=== PATIENT | female | born 1955 | race Caucasian/White ===

== ENCOUNTER 2019-08-03 17:14 | Inpatient (IN) ==
--- NOTE | 2019-08-03 17:31 | Emergency Department Note ---
Impression & Plan Involuntary commitment, Noncompliance with medication regimen, Schizophrenia ED Provider Note Provider: Kaden Dowd MD DATE OF SERVICE: 08/03/2019 CHIEF COMPLAINT: Mental health evaluation HISTORY OF PRESENT ILLNESS: Patient is a 63-year-old female history of schizophrenia presenting today for mental health evaluation. Patient was recently hospitalized here over the weekend on a 302 discharged on Wednesday as she was stable during this time and restarted on her medications. Patient currently homeless and states he has been staying at a hotel/motel in the area. With the aid of the translator service here, she states that she has been doing okay. Patient states she does not have any thoughts of harm herself or anybody else. Patient's grandson is present and states that he saw her about 45 minutes ago downtown and talked with her and she stated she wanted to get a gun and shoot herself in the head. Patient states that she is not been taking her home medications. She denies hallucinations to me. For the solution sales senior executive service and my interview she does occasionally stare off and have difficulty following the conversation. She denies physical pain to me. Patient states she does not remember being here this weekend. Patient was recently released from custodial. REVIEW OF SYSTEMS: A total of 10 review of systems was obtained and negative except as stated above in the HPI. PAST MEDICAL HISTORY: As noted above MEDICATIONS: Reviewed prior list but patient states she is not been taking these. SOCIAL HISTORY: Currently homeless. Primarily speaks Mongolian with a few broken Greenlandic phrases. Patient is a smoker. PHYSICAL EXAM: GENERAL: alert and oriented in no acute distress on stretcher Head: normocephalic and atraumatic NECK: Trachea midline. No obvious deformity appreciated. EYES: No injection, discharge or icterus. ENT: Mucous membranes pink and moist. LUNGS: Airway patent. No retractions. Breath sounds clear SKIN: Acyanotic, warm, dry EXTREMITIES: Without swelling, tenderness or deformity NEUROLOGICAL: No focal deficits. Ambulatory. Psych: Patient states that she does not have any suicidal homicidal ideations. She denies hallucinations. Patient has a flattened affect and occasionally has some difficulty following conversation. Patient's hypertension was referred to her PCP HOSPITAL COURSE: 1730 Patient was first seen and H&P performed. Utilize the Mongolian translation service. Patient's grandson was present as well psychiatric case management. Patient's laboratory studies reviewed. Differential includes Mood disorder, infection, hypoglycemia, electrolyte abnormalities, cardiac sources, intracerebral event, toxicologic, trauma, neurologic, as well as other pathologies. IMPRESSION/MEDICAL DECISION MAKING: Patient presents here today for mental health evaluation. Patient denies significant symptoms of me but states medication noncompliance. Is currently homeless. Does not remember extended stay for several days here over the weekend. Patient's grandson who was present presents 302 statement stating that the patient told him that she had thoughts of wanting to get a gun and shoot herself in the head. Patient does have a significant psychiatric history including prior suicide attempts. Patient states that she has not follow-up in the outpatient setting with an outpatient provider since discharge several days ago from this ER. Medical clearance was completed. Seen in conjunction with psychiatric housing case manager. Feel a 302 is warranted at this time given patient's history and the petitioning statement given. Medically cleared (w/ UA pending) and accepted by [facility] for further inpatient care of her schizophrenia. DIAGNOSIS: Involuntary mental health evaluation, suicidal thoughts DISPOSITION: Accepted to [facility] Past Med/Surg History Social History Preferred Language: Mongolian Communication Ability: Effective Communication Tools: IPad Visual Impairment: No Limitations Hearing Ability: Normal Check Processor Required: Yes Beliefs That Will Affect Care: None Feels Safe at Home: Declines to Answer Smoking Status: Current every day smoker Tobacco Type: cigarettes ; Allergies Allergies Allergy/AdvReac Type Severity Reaction Status Date / Time No Known Allergies Allergy Verified 07/28/19 16:38 Home Meds Home Medications Medication Instructions Recorded Confirmed Cogentin 2 mg PO BID 07/28/19 08/03/19 alum-mag hydroxide-simeth [Mag-Al 30 ml PO TID PRN 07/28/19 08/03/19 Plus Extra Strength] cholecalciferol (vitamin D3) 50 mcg PO DAILY 07/28/19 08/03/19 [Vitamin D3] dicyclomine 20 mg PO TID 07/28/19 08/03/19 diphenhydramine HCl [Benadryl] 50 mg PO BID 07/28/19 08/03/19 docusate sodium [Colace] 100 mg PO BID 07/28/19 08/03/19 latanoprost [Xalatan] 1 drp OPHTHALMIC (EYE) PM 07/28/19 08/03/19 levothyroxine [Synthroid] 75 mcg PO DAILY 07/28/19 08/03/19 lithium carbonate 300 mg PO BID 07/28/19 08/03/19 loratadine 10 mg PO DAILY 07/28/19 08/03/19 magnesium hydroxide [Milk of 30 ml PO DAILY PRN 07/28/19 08/03/19 Magnesia] pantoprazole [Protonix] 40 mg PO BID 07/28/19 08/03/19 risperidone 3 mg PO DAILY 07/28/19 08/03/19 risperidone 4 mg PO HS 07/28/19 08/03/19 simethicone 80 mg PO TID PRN 07/28/19 08/03/19 simvastatin [Zocor] 10 mg PO HS 07/28/19 08/03/19 trazodone 50 mg PO HS 07/28/19 08/03/19 Results & Data (ED) Vital Signs Vital Signs - 24 hr 08/03/19 17:20 08/03/19 20:12 Temperature 37.1 C Temperature Source Oral Pulse Rate 76 Pulse Rate [Left Finger] 72 Pulse Rhythm Regular Pulse Strength Normal Respiratory Rate 20 20 Respiratory Effort / Characteristics Non-Labored Spontaneous Respiratory Depth Normal Respiratory Pattern Regular Blood Pressure 166/95 H Blood Pressure [Left Arm] 116/63 Blood Pressure Mean 118 Blood Pressure Mean [Left Arm] 80 Blood Pressure Position Sitting Pulse Oximetry 99 95 Oxygen Delivery Method Room Air Room Air Sepsis Recent Fever Within 48 Hours No Sepsis New/Unexplained Change in Mental Status No Sepsis Action Taken by Nursing No Action Required Laboratory Data Result diagrams: 08/03/19 17:58 08/03/19 17:58 Lab Results 08/03/19 08/03/19 08/03/19 Range/Units 17:58 17:58 17:58 WBC 8.43 (4.8-10.8) K/uL RBC 4.58 (4.2-5.4) M/uL Hgb 13.3 (12.0-16.0) g/dL Hct 42.0 (37-47) % MCV 91.7 (80-100) fL MCH 29.0 (25-34) pg MCHC 31.7 L (32-36) g/dL RDW Std Deviation 43.6 (36.4-46.3) fL RDW Coeff of Ronald 13.0 (11.5-14.5) % Plt Count 393 (130-400) K/uL MPV 9.8 (7.4-10.4) fL Immature Gran % (Auto) 0.2 % Neut % (Auto) 67.0 % Lymph % (Auto) 24.4 % Lucas % (Auto) 7.6 % Eos % (Auto) 0.4 % Baso % (Auto) 0.4 % Immature Gran # (Auto) 0.02 (0.00-0.02) K/uL Neut # (Auto) 5.65 (1.4-6.5) K/uL Lymph # (Auto) 2.06 (1.2-3.4) K/uL Lucas # (Auto) 0.64 H (0.11-0.59) K/uL Eos # (Auto) 0.03 (0-0.5) K/uL Baso # (Auto) 0.03 (0-0.2) K/uL Sodium 137 (136-145) mmol/L Potassium 3.4 L (3.5-5.1) mmol/L Chloride 103 (98-107) mmol/L Carbon Dioxide 26 (21-32) mmol/L Anion Gap 8.0 (3-11) BUN 11 (7-18) mg/dl Creatinine 0.67 (0.6-1.2) mg/dl Est Cr Clr Drug Dosing 94.6 ml/min Est GFR ( Amer) 110.0 Est GFR (Non-Af Amer) 94.9 BUN/Creatinine Ratio 15.9 (10-20) Glucose 105 H (70-99) mg/dl Calcium 9.0 (8.5-10.1) mg/dl Total Bilirubin 0.3 (0.2-1) mg/dl AST 21 (15-37) U/L ALT 29 (12-78) U/L Alkaline Phosphatase 97 (45-117) U/L Total Protein 8.4 H (6.4-8.2) gm/dl Albumin 3.9 (3.4-5.0) gm/dl Globulin 4.5 H (2.5-4.0) gm/dl Albumin/Globulin Ratio 0.9 (0.9-2) TSH 1.410 (0.300-4.500) uIu/ml Urine Color Urine Appearance (Clear) Urine pH (4.5-7.5) Ur Specific Glasco (1.000-1.030) Urine Protein (Negative) Urine Glucose (UA) (Negative) Urine Ketones (Negative) Urine Blood (Negative) Urine Nitrite (Negative) Urine Bilirubin (Negative) Urine Urobilinogen (Negative) Ur Leukocyte Esterase (Negative) Urine WBC (Auto) (0-5) /hpf Urine RBC (Auto) (0-4) /hpf U Hyaline Cast (Auto) (0-5) /lpf U Epithel Cells (Auto) (0-5) /lpf Urine Bacteria (Auto) (Negative) Nasal Screen MRSA (PCR) (Negative) Salicylates 1.8 L (2.8-20) mg/dl Urine Opiates Screen (Neg) Ur Methadone, Qual (Neg) Acetaminophen < 2 L (10-30) ug/ml Urine Barbiturates (Neg) Ur Phencyclidine (PCP) (Neg) U Amphetamin/Meth Scrn (Neg) MDMA (Ecstasy) Screen (Neg) U Benzodiazepines Scrn (Neg) Dickens < 0.2 L (0.6-1.2) mmol/L Ur Cocaine Metabolite (Neg) U Marijuana (THC) Screen (Neg) Ethyl Alcohol mg/dL (0-3) mg/dl 08/03/19 08/03/19 08/03/19 Range/Units 17:58 19:00 20:40 WBC (4.8-10.8) K/uL RBC (4.2-5.4) M/uL Hgb (12.0-16.0) g/dL Hct (37-47) % MCV (80-100) fL MCH (25-34) pg MCHC (32-36) g/dL RDW Std Deviation (36.4-46.3) fL RDW Coeff of Ronald (11.5-14.5) % Plt Count (130-400) K/uL MPV (7.4-10.4) fL Immature Gran % (Auto) % Neut % (Auto) % Lymph % (Auto) % Lucas % (Auto) % Eos % (Auto) % Baso % (Auto) % Immature Gran # (Auto) (0.00-0.02) K/uL Neut # (Auto) (1.4-6.5) K/uL Lymph # (Auto) (1.2-3.4) K/uL Lucas # (Auto) (0.11-0.59) K/uL Eos # (Auto) (0-0.5) K/uL Baso # (Auto) (0-0.2) K/uL Sodium (136-145) mmol/L Potassium (3.5-5.1) mmol/L Chloride (98-107) mmol/L Carbon Dioxide (21-32) mmol/L Anion Gap (3-11) BUN (7-18) mg/dl Creatinine (0.6-1.2) mg/dl Est Cr Clr Drug Dosing ml/min Est GFR ( Amer) Est GFR (Non-Af Amer) BUN/Creatinine Ratio (10-20) Glucose (70-99) mg/dl Calcium (8.5-10.1) mg/dl Total Bilirubin (0.2-1) mg/dl AST (15-37) U/L ALT (12-78) U/L Alkaline Phosphatase (45-117) U/L Total Protein (6.4-8.2) gm/dl Albumin (3.4-5.0) gm/dl Globulin (2.5-4.0) gm/dl Albumin/Globulin Ratio (0.9-2) TSH (0.300-4.500) uIu/ml Urine Color Urine Appearance (Clear) Urine pH (4.5-7.5) Ur Specific Glasco (1.000-1.030) Urine Protein (Negative) Urine Glucose (UA) (Negative) Urine Ketones (Negative) Urine Blood (Negative) Urine Nitrite (Negative) Urine Bilirubin (Negative) Urine Urobilinogen (Negative) Ur Leukocyte Esterase (Negative) Urine WBC (Auto) (0-5) /hpf Urine RBC (Auto) (0-4) /hpf U Hyaline Cast (Auto) (0-5) /lpf U Epithel Cells (Auto) (0-5) /lpf Urine Bacteria (Auto) (Negative) Nasal Screen MRSA (PCR) Negative (Negative) Salicylates (2.8-20) mg/dl Urine Opiates Screen Neg (Neg) Ur Methadone, Qual Neg (Neg) Acetaminophen (10-30) ug/ml Urine Barbiturates Neg (Neg) Ur Phencyclidine (PCP) Neg (Neg) U Amphetamin/Meth Scrn Neg (Neg) MDMA (Ecstasy) Screen Neg (Neg) U Benzodiazepines Scrn Neg (Neg) Dickens (0.6-1.2) mmol/L Ur Cocaine Metabolite Neg (Neg) U Marijuana (THC) Screen Neg (Neg) Ethyl Alcohol mg/dL < 3.0 (0-3) mg/dl 08/03/19 Range/Units 20:40 WBC (4.8-10.8) K/uL RBC (4.2-5.4) M/uL Hgb (12.0-16.0) g/dL Hct (37-47) % MCV (80-100) fL MCH (25-34) pg MCHC (32-36) g/dL RDW Std Deviation (36.4-46.3) fL RDW Coeff of Ronald (11.5-14.5) % Plt Count (130-400) K/uL MPV (7.4-10.4) fL Immature Gran % (Auto) % Neut % (Auto) % Lymph % (Auto) % Lucas % (Auto) % Eos % (Auto) % Baso % (Auto) % Immature Gran # (Auto) (0.00-0.02) K/uL Neut # (Auto) (1.4-6.5) K/uL Lymph # (Auto) (1.2-3.4) K/uL Lucas # (Auto) (0.11-0.59) K/uL Eos # (Auto) (0-0.5) K/uL Baso # (Auto) (0-0.2) K/uL Sodium (136-145) mmol/L Potassium (3.5-5.1) mmol/L Chloride (98-107) mmol/L Carbon Dioxide (21-32) mmol/L Anion Gap (3-11) BUN (7-18) mg/dl Creatinine (0.6-1.2) mg/dl Est Cr Clr Drug Dosing ml/min Est GFR ( Amer) Est GFR (Non-Af Amer) BUN/Creatinine Ratio (10-20) Glucose (70-99) mg/dl Calcium (8.5-10.1) mg/dl Total Bilirubin (0.2-1) mg/dl AST (15-37) U/L ALT (12-78) U/L Alkaline Phosphatase (45-117) U/L Total Protein (6.4-8.2) gm/dl Albumin (3.4-5.0) gm/dl Globulin (2.5-4.0) gm/dl Albumin/Globulin Ratio (0.9-2) TSH (0.300-4.500) uIu/ml Urine Color Yellow Urine Appearance Clear (Clear) Urine pH 5.0 (4.5-7.5) Ur Specific Glasco 1.020 (1.000-1.030) Urine Protein Negative (Negative) Urine Glucose (UA) Negative (Negative) Urine Ketones Negative (Negative) Urine Blood 2+ H (Negative) Urine Nitrite Negative (Negative) Urine Bilirubin Negative (Negative) Urine Urobilinogen Negative (Negative) Ur Leukocyte Esterase 2+ H (Negative) Urine WBC (Auto) >30 H (0-5) /hpf Urine RBC (Auto) 0-4 (0-4) /hpf U Hyaline Cast (Auto) 1-5 (0-5) /lpf U Epithel Cells (Auto) >30 H (0-5) /lpf Urine Bacteria (Auto) Negative (Negative) Nasal Screen MRSA (PCR) (Negative) Salicylates (2.8-20) mg/dl Urine Opiates Screen (Neg) Ur Methadone, Qual (Neg) Acetaminophen (10-30) ug/ml Urine Barbiturates (Neg) Ur Phencyclidine (PCP) (Neg) U Amphetamin/Meth Scrn (Neg) MDMA (Ecstasy) Screen (Neg) U Benzodiazepines Scrn (Neg) Dickens (0.6-1.2) mmol/L Ur Cocaine Metabolite (Neg) U Marijuana (THC) Screen (Neg) Ethyl Alcohol mg/dL (0-3) mg/dl Administered Medications Dickens Carbonate (Dickens Carbonate) 300 mg PO BID [facility] Stop: 09/02/19 21:44 Last Admin: 08/03/19 22:18 Dose: 300 mg Documented by: [id number] Risperidone (Risperdal) 1 mg PO BID CLARISA Stop: 09/02/19 21:44 Last Admin: 08/03/19 22:18 Dose: 1 mg Documented by: [id number] Discharge Plan Visit Data Chief Complaint: Mental Health Evaluation Stated Complaint: [facility] ED Provider: Kaden Dowd Discharge Problem: Involuntary commitment, Noncompliance with medication regimen, Schizophrenia Discharge Instructions Interventions: ED Discharge Assessment Last Done: 08/03/19 21:01 Discharge Problem: Schizophrenia Qualifiers: Schizophrenia type: unspecified Qualified Code(s): F20.9 - Schizophrenia, unspecified
[2019-08-03 18:10] LABS: Basophils # (auto) 0.03 K/uL (0-0.2); Basophils % (auto) 0.4 %; Eosinophils # (auto) 0.03 K/uL (0-0.5); Eosinophils % (auto) 0.4 %; Hemoglobin 13.3 g/dL (12.0-16.0); Immature Granulocytes # (auto) 0.02 K/uL (0.00-0.02); Immature Granulocytes % (auto) 0.2 %; Lymphocytes # (auto) 2.06 K/uL (1.2-3.4); Lymphocytes % (auto) 24.4 %; Mean Corpuscular Hgb Conc 31.7 g/dL (32-36); Mean Corpuscular Volume 91.7 fL (80-100); Mean Platelet Volume 9.8 fL (7.4-10.4); Monocytes # (auto) 0.64 K/uL (0.11-0.59); Monocytes % (auto) 7.6 %; Neutrophils # (auto) 5.65 K/uL (1.4-6.5); Platelet Count 393 K/uL (130-400); RDW Standard Deviation 43.6 fL (36.4-46.3); Red Blood Count 4.58 M/uL (4.2-5.4); White Blood Count 8.43 K/uL (4.8-10.8)
[2019-08-03 18:38] LABS: Albumin Level 3.9 gm/dl (3.4-5.0); BUN Creatinine Ratio 15.9 (10-20); Creatinine Clr Calc Pharmacy 94.6 ml/min; Est GFR (Non-African American) 94.9; Potassium 3.4 mmol/L (3.5-5.1)
[2019-08-03 18:49] LABS: Albumin Globulin Ratio 0.9 (0.9-2); Bilirubin,Total 0.3 mg/dl (0.2-1); Globulin 4.5 gm/dl (2.5-4.0); Thyroid Stimulating Hormone 1.41 uIu/ml (0.300-4.500); Total Protein 8.4 gm/dl (6.4-8.2)
[2019-08-03 18:53] LABS: Acetaminophen < 2 ug/ml (10-30); Lithium < 0.2 mmol/L (0.6-1.2); Salicylate 1.8 mg/dl (2.8-20)
[2019-08-03] MEDS ORDERED: ACETAMINOPHEN 325 MG TAB PO PRN (20:47)
[2019-08-03] MEDS ORDERED: BISMUTH SUBSALICYLATE PER ML OMNICELL CHARGE PO PRN ×2 (20:47→20:51)
[2019-08-03] MEDS ORDERED: SODIUM CHLORIDE 0.65% NA SOLN 45 ML (OCEAN) PRN ×2 (20:47→20:51)
[2019-08-03] MEDS ORDERED: ALUMINUM/MAGNESIUM SUSP 30 ML UDC PO PRN ×2 (20:47→20:51)
[2019-08-03] MEDS ORDERED: MAGNESIUM HYDROXIDE SUSP 30 ML UDC PO PRN ×2 (20:47→20:51)
[2019-08-03 20:51] LABS: Appearance Urine Clear (Clear); Bacteria Urine Automated Negative (Negative); Bilirubin Urine Negative (Negative); Blood Urine 2+ (Negative); Color Urine Yellow; Epithelial Cell Urine Auto >30 /lpf (0-5); Glucose Urine UA Negative (Negative); Ketones Urine Negative (Negative); Leukocyte Esterase Urine 2+ (Negative); Nitrite Urine Negative (Negative); Protein Urine Negative (Negative); RBC Urine Automated 0-4 /hpf (0-4); Urobilinogen Urine Negative (Negative); WBC Urine Automated >30 /hpf (0-5)
[2019-08-03] MEDS ORDERED: RISPERIDONE ODT 1MG PO PRN (21:17)
[2019-08-03 21:34] LABS: Amphetamines+Metham, Urine Neg (Neg); Barbiturates, Urine Neg (Neg); Benzodiazepine, Urine Neg (Neg); Cocaine, Urine Neg (Neg); MDMA (Ecstacy), Urine Neg (Neg); Methadone, Urine Neg (Neg); Opiate, Urine Neg (Neg); Phencyclidine, Urine Neg (Neg)
[2019-08-03] MEDS: risperiDONE 1 MG TABLET PO SCH (22:18)
[2019-08-03] MEDS: LITHIUM CARBONATE 300 MG TAB PO SCH (22:18)
[2019-08-04] MEDS ORDERED: SIMETHICONE 80 MG CHEW PO PRN (10:45)
[2019-08-04] MEDS ORDERED: risperiDONE 3 MG TABLET PO SCH (11:00)
--- NOTE | 2019-08-04 11:30 | History & Physical ---
Date of Service August 04, 2019 Impression / Recommendations Impression This 63-year-old female with the presumed diagnosis of schizoaffective disorder bipolar type was been admitted through the emergency department on a 302 commitment following a petition by her grandson. The petition alleges that the patient told him that she was going to shoot herself with a gun. The petition also mentions that she is homeless. The patient, herself, reports that she is not suicidal, never threatened to shoot herself with a gun, and has never made a suicide attempt in the pastalthough the records suggest that she reportedly had made a suicide attempt by self cutting in 2017. The past record indicates that the patient had symptoms suggestive of schizophrenia, and then subsequently developed mood swings suggestive of christnie. There also reportedly is a history of poorly controlled behavior in the community, and her family reportedly has filed and have been granted a protection from abuse (PFA) order. Further, it has been reported that the patient was imprisoned for approximately 1 year on charges of making terroristic threats against her family, and she has only recently been released. Evaluation of this patient was complicated by the fact that she speaks little Guamanian, but does seem to understand basic pleasantries and Guamanian. The interview was conducted first by the interviewer's very limited Mozambican, and then was completed in detail with the assistance of an Internet primary clinician through an iPad. The patient, herself, indicates that she has not taken any of her medications, including any of her psychiatric medications for at least 5 days. She was seen in the emergency room during the previous weekend and released. It seems that at some point subsequent to that she ended up leaving the [facility] room that was being provided for her by a local benevolent organization and, according the patient, she has been living and sleeping "on the streets" for at least several days. During the period of time in question, [employer] has been under a freeze warning, but the patient insists that she did not get cold. Reports from community providers are that she has been neglecting self-care, not attending to her personal needs, not taking her medicines, and not eating. Also, during her interview with us she told us that people are trying to kill her, although she does not elaborate. 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 It was also evident that she was highly suspicious of the primary clinician and, according to the primary clinician, she frequently insulted him or falsely accused him of things such as shouting at her, or being arrogant, or badgering her. Although their conversations were in Mozambican, it was clear that the primary clinician was in no way shouting at her, and did not appear to be anything other than professional and polite. Also, although the patient reports that she does not hear voices that other people do not hear, and although this has reportedly been the case in the past, she does appear to be responding as if to internal stimuli. For example, she will suddenly turn her head in a certain direction smile and not as if responding to a non-heard voice. (1) Noncompliance with medication regimen: 08/04/19 - The patient indicates that she has stopped taking her medicine because the names of the directions for the medications are in Guamanian and she cannot read them. She also indicates that she no longer has access to her medications and has not taken any for approximately 5 days. The patient also claims to not recall the names of any of her medications and reports that she does not have the conditions for which her known medications are clearly intended. She also seems not to be oriented to year, and memory deficits on testing suggests that there may be some cognitive impairment as well. -The patient's underlying psychiatric condition will be actively treated. It is hoped that with treatment we will be able to better assess whether the patient can independently manage medications, or if she will need active assistance in this regard when she returns to the community. -She has a history of favorably responding to risperidone. We will start the patient on risperidone M tabs at her reported outpatient recommended dose, and as tolerated we will talk to the patient about converting to a Depo form of risperidone, given her history of medication nonadherence. Present on Admission?: Yes (2) Psychosis: 08/04/19 -The patient has been admitted to the locked, secured behavioral health unit and has been placed in special observation room. She is also being monitored with close observations and every 15-minute direct observation. When more stable she will be actively encouraged to participate in individual, group, and activity therapies. We will also attempt to involve the family if the patient permits us to and if they agree. -Although she was given a diagnosis of schizophrenia in the emergency room, the record, and the patient's presentation, is more consistent with a diagnosis of schizoaffective disorder, bipolar type. She has a reported history of responding favorably to risperidone, and, in addition, she had been prescribed lithium carbonate prior to admission. The issue may be nonadherence with these medications, and the first plan is to restart them at risperidone 3 mg in the morning and 4 mg at bedtime (oral dissolving tablets to help assure adherence) and lithium carbonate 300 mg twice a day with a plan to check her lithium level next week. Psychosis type: unspecified psychosis type Qualified Code(s): F29 - Unspecified psychosis not due to a substance or known physiological condition (3) Homeless: 08/04/19 -Until recently, the patient reportedly had been living in a motel room and a "[employer]" motel in [place]. This accommodation was provided through a local benevolent organization known as [facility]." However, this organization has notified us today that they were only able to provide accommodations during cold weather seasons and that, accordingly, they will not be able to provide accommodations over the balance of the spring, summer, and early derian. -In the past, the patient is live with family members. However, this is clearly not an option at the present time. The context is that the patient reportedly was in [facility] approximately a year because of her making terroristic threats against the family. While it does seem clear that the family wants to help protect her, they are unable to safely provide group home. Given the patient's history of neglect of self-care, medication nonadherence, and possible cognitive deficits we are going to investigate structured residential programs as part of our discharge planning. Present on Admission?: Yes Inventory Assets Strengths: Agrees to take medications. Basically cooperative with treatment. Pleasant on approach. Concerned family members. Needs: Resolution of psychotic features. Medication adherence. Stable living environment. Risk Factors Assessment Psychotic illness. Homeless. Extremely poor judgment. Male: No : No Do You Have Access To A Gun?: No Health Problems: Yes Mental Health Diagnoses: Yes Substance Use Disorders: Yes (Patient makes reference to smoking marijuana, but does not clear if this is something that is done regularly or if it interferes anyway with her functioning.) Previous Attempt: No (The patient insists that she does not have a history of intentional self injury. 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 She has a history of schizoaffective disorder, bipolar type and was admitted on 08/03/19 20:47 on a 302 involuntary commitment after her grandson reported that she had told him that she had very recently threatened to get a gun and shoot herself. Chief Complaint "I just need to have my medications explained to me." History of Present Illness The patient is a 63-year-old woman with a long history of psychotic illness as well as a history of multiple psychiatric hospitalizations, including at least 1 previous admission to the behavioral health unit at [facility]. She was admitted during the evening of 08/03/2019 after being evaluated in the emergency room. The patient also says that she has been living on the streets for at least the past 2 or 3 nights. This is particularly of concern because for approximately the same period of time [place] has been under a freeze warning at night. When asked if she had been cold, she smiled and said "oh no." The patient's report is that she was brought to the emergency room by the police, at her request, because she is confused about her medications and does not have access to them. However, the reality is that she was brought to the emergency room by the police on a 302 warrant that was petitioned by her grandson. According to the petition, the grandson reports that the patient had very recently told him that she is planning to acquire a gun and shoot herself. A woman who has been identified is the patient's therapeutic case manager, Lizzy at the base services unit, reports that the patient had been staying at the "[employer] [address]" motel, sponsored by the local charitable organization, "[employer]." However, the patient evidently left her motel room several days ago. According to Lizzy, prior to that, the patient had not been eating, had not been taking care of herself, and had not been taking her medications. The patient, herself, acknowledges that she has not taken any of her medications (psychiatric or otherwise) for at least 5 days, both because she does not have access to them and, also, because she is confused about them. The patient tells us that she was recently [facility], and had been sent there approximately a year ago because of "a bunch of lies the people told." She declines to identify, or is unable to remember the nature of the "lies," but her assertion is that the "lies" or "investigated," and her innocence was proven so she was released. According to an online judicial case review, the patient was incarcerated for making terroristic threats, apparently against her her family. It is noted that the family has an active PFA order against her. Additional information is currently being sought from the [facility] health records, and from [facility] where she reportedly had previously been a patient. According the patient, she has no psychiatric illness and does not recall the name of any of her medications. The [id number] evaluation of the patient was conducted with the services of an online primary clinician. At times, the patient seemed highly suspicious of the primary clinician and, without , periodically accused him of "shouting" at her (he had not) and being "prideful" or "arrogant." (Of course, the fold skiver was simply repeating the questions that I was asking.) Past Psychiatric History Previous Psych History: The patient acknowledges a history of multiple psychiatr ic hospitalizations but is either unable or unwilling to identify any of the previous admissions. There is a history of a previous psychiatric hospitalization on the behavioral health unit at [facility] in 2018. The therapeutic case manager also indicates that the patient had previously been a patient at [facility]. Current Psychiatric Diagnosis: Schizoaffective Disorder, Bipolar Type Previous Psych Admissions: Patient reports a history of a number of psychiatric hospitalizations. We have a record of her hospitalization on the behavioral health unit in 2018. At that time, she responded favorably to risperidone. There is also an indication that she had been hospitalized at [facility] in the past. Do You Have Access To A Gun?: No History of Previous Suicide Attempt: Yes (The patient reports that she does not have any history of suicide attempts. However, the 2018 [facility] behavioral health unit record notes that there was a report that she had intentionally cut her wrists in 2017) Describe Attempts in the Past: Possible past attempt by cutting her wrist Past Medication Trials: Record indicates the patient has a history of favorable response to risperidone. She is also currently prescribed lithium carbonate. Past Head Trauma/Neuro History History of Concussion/Seizure: No (The patient is not considered a reliable historian, but claims to have no history of head injury or seizures.) Allergies Allergy/AdvReac Type Severity Reaction Status Date / Time No Known Allergies Allergy Verified 07/28/19 16:38 Home Medications Home Medications Medication Instructions Recorded Confirmed Type alum-mag hydroxide-simeth [Mag-Al 30 ml PO TID PRN 07/28/19 08/03/19 History Plus Extra Strength] cholecalciferol (vitamin D3) 50 mcg PO DAILY 07/28/19 08/03/19 History [Vitamin D3] dicyclomine 20 mg PO TID 07/28/19 08/03/19 History diphenhydramine HCl [Benadryl] 50 mg PO BID 07/28/19 08/03/19 History docusate sodium [Colace] 100 mg PO BID 07/28/19 08/03/19 History latanoprost [Xalatan] 1 drp OPHTHALMIC (EYE) PM 07/28/19 08/03/19 History levothyroxine [Synthroid] 75 mcg PO DAILY 07/28/19 08/03/19 History lithium carbonate 300 mg PO BID 07/28/19 08/03/19 History loratadine 10 mg PO DAILY 07/28/19 08/03/19 History magnesium hydroxide [Milk of 30 ml PO DAILY PRN 07/28/19 08/03/19 History Magnesia] pantoprazole [Protonix] 40 mg PO BID 07/28/19 08/03/19 History risperidone 3 mg PO DAILY 07/28/19 08/03/19 History risperidone 4 mg PO HS 07/28/19 08/03/19 History simethicone 80 mg PO TID PRN 07/28/19 08/03/19 History simvastatin [Zocor] 10 mg PO HS 07/28/19 08/03/19 History trazodone 50 mg PO HS 07/28/19 08/03/19 History benztropine 2 mg PO BID 08/04/19 08/04/19 History Family History Family History of: Doesn't Know Alcohol History Hx of Alcohol Use Over the Past 12 Months: No Smoking Use Have You Smoked or Used Tobacco Products in the Last 30 Days: Yes tobacco type: cigarettes Smoking Status: Current some day smoker Substance History Hx of Prescription Med Misuse Over the Past 12 Months: No Hx of Over the Counter Med Misuse Over the Past 12 Months: No Hx of Inhalent Misuse Over the Past 12 Months: No Hx of Organic Substance Use Over the Past 12 Months: No Hx of Illegal Substances/Street Drug Use Over Past 12 Months: Yes (The patient reports that she sometimes smokes marijuana) Problems as a Result of Past Substance Use: None Identified Personal History Living Arrangements: Homeless (Prior to admission the patient had been living in a motel room provided by a local [employer] organization. However that organization has notified us that she will no longer be eligible for their services.) Born In: [facility] Childhood: The patient provides no information in this regard. Highest Grade Completed Comment: The patient does not provide reliable information regarding education. 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 Employment Status: Unemployed Marital Status: Single Number Of Children: The patient at first tells us that she has "7 children," and then later says "7 or 8 children." She became angry when asked if she has any grandchildren. Beliefs That Will Affect Care: None Current Legal Problems: Yes (Was recently released from [facility] where she had been confined secondary to charges of making terroristic threats.) Legal Problems Comment: It is not known if there are any ongoing legal entanglements. The patient also reportedly is an undocumented alien in the [place]. We are told that immigration and custom enforcement ("ICE") has been notified, but no immediate action is planned. Hx Legal Problems: Yes Psychological Trauma History Comment: The patient was not sufficiently cooperative with the interview to gather information about any past history of trauma. Patient History Medical History Anxiety (Chronic) Depression (Chronic) Hypercholesteremia (Chronic) Schizophrenia (Chronic) Family History Other No pertinent family history Social History Preferred Language: Mozambican Communication Ability: Effective Communication Tools: IPad Visual Impairment: No Limitations Hearing Ability: Normal [employer] Hatcher[employer] Manager Required: Yes Beliefs That Will Affect Care: None Feels Safe at Home: Declines to Answer Smoking Status: Current some day smoker Tobacco Type: cigarettes ; Review of Systems Review of Systems: All systems reviewed & are unremarkable except as noted in HPI & below The somatic history, physical examination, and review of systems is completed by Kaden Dowd MD in the emergency department has been reviewed and is excepted for purposes of medical clearance to the behavioral health unit. A confirmatory review of systems completed on the psychiatric unit during the admission assessment resolved and the patient denying all medical problems, including psychiatric problems. Based upon the patient's medicine profile, there would appear to be a history of gastroesophageal reflux disease, hypothyroidism, and dyslipidemia. Physical Exam Psychiatric: Orientation: alert, oriented to person and oriented to place (The patient notes that she is in a hospital, but says that she does not know the name of the hospital.) When asked to name the current year, the patient began "1999" hesitated, and then added "I do not look at the calendar anymore." However, she was correctly able to name the month (July) Apperance: + disheveled and appeared stated age Eye Contact: + poor eye contact The patient was unable/unwilling to cooperate with an abnormal involuntary movement scale. She shakes both of her lower extremities simultaneously at approximately a 3 beat per second rhythm. The patient is not proficient in Guamanian. In the presence of an Internet-based primary clinician service provided through an iPad, the patient offered little information spontaneously and alternated between some inappropriate smiling, what appeared to be thought blocking, and, occasionally, abrupt and insulting comments directed towards the primary clinician. Affect: + labile affect "Good." Thought Process: + thought blocking and + concrete thought process Thought Content: + delusions The patient tells us that there are people who are trying to kill her. However, she declines to elaborate. 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 However, periodically during the interview she looked about the room, smiled inappropriately, and appeared to be responding to internal stimuli. Immediate and short-term memory were tested. The patient responded "no" when asked immediately after being given the name of a medication that she is taking if she remembers the name that was just spoken. She was asked to recall 3 objects after 5 minutes (apple, knife, and car). She declined to repeat these objects immediately after they were given to her, and she genuinely seemed unable to recall any of the objects after approximately 5 minutes, even when given prompts. Estimated Intelligence: average estimated intelligence Insight: + severely impaired insight Judgement: + severely impaired judgement Vital Signs (Past 24 Hours): Last Vital Signs Temp 37 C 08/04/19 06:38 Pulse 65 08/04/19 06:38 Resp 18 08/04/19 06:38 BP 125/69 08/04/19 06:38 Pulse Ox 95 08/03/19 21:25 Results & Data ([facility]) Laboratory Results Laboratory Results - last 24 hr 08/03/19 08/03/19 08/03/19 17:58 17:58 17:58 WBC 8.43 RBC 4.58 Hgb 13.3 Hct 42.0 MCV 91.7 MCH 29.0 MCHC 31.7 L RDW Std Deviation 43.6 RDW Coeff of Ronald 13.0 Plt Count 393 MPV 9.8 Immature Gran % (Auto) 0.2 Neut % (Auto) 67.0 Lymph % (Auto) 24.4 [place] % (Auto) 7.6 Eos % (Auto) 0.4 Baso % (Auto) 0.4 Immature Gran # (Auto) 0.02 Neut # (Auto) 5.65 Lymph # (Auto) 2.06 [place] # (Auto) 0.64 H Eos # (Auto) 0.03 Baso # (Auto) 0.03 Sodium 137 Potassium 3.4 L Chloride 103 Carbon Dioxide 26 Anion Gap 8.0 BUN 11 Creatinine 0.67 Est Cr Clr Drug Dosing 94.6 Est GFR ( Amer) 110.0 Est GFR (Non-Af Amer) 94.9 BUN/Creatinine Ratio 15.9 Glucose 105 H Calcium 9.0 Total Bilirubin 0.3 AST 21 ALT 29 Alkaline Phosphatase 97 Total Protein 8.4 H Albumin 3.9 Globulin 4.5 H Albumin/Globulin Ratio 0.9 TSH 1.410 Urine Color Urine Appearance Urine pH Ur Specific [place] Urine Protein Urine Glucose (UA) Urine Ketones Urine Blood Urine Nitrite Urine Bilirubin Urine Urobilinogen Ur Leukocyte Esterase Urine WBC (Auto) Urine RBC (Auto) U Hyaline Cast (Auto) U Epithel Cells (Auto) Urine Bacteria (Auto) Nasal Screen MRSA (PCR) Salicylates 1.8 L Urine Opiates Screen Ur Methadone, Qual Acetaminophen < 2 L Urine Barbiturates Ur Phencyclidine (PCP) U Amphetamin/Meth Scrn MDMA (Ecstasy) Screen U Benzodiazepines Scrn [place] < 0.2 L Ur Cocaine Metabolite U Marijuana (THC) Screen Ethyl Alcohol mg/dL 08/03/19 08/03/19 08/03/19 17:58 19:00 20:40 WBC RBC Hgb Hct MCV MCH MCHC RDW Std Deviation RDW Coeff of Ronald Plt Count MPV Immature Gran % (Auto) Neut % (Auto) Lymph % (Auto) [place] % (Auto) Eos % (Auto) Baso % (Auto) Immature Gran # (Auto) Neut # (Auto) Lymph # (Auto) [place] # (Auto) Eos # (Auto) Baso # (Auto) Sodium Potassium Chloride Carbon Dioxide Anion Gap BUN Creatinine Est Cr Clr Drug Dosing Est GFR ( Amer) Est GFR (Non-Af Amer) BUN/Creatinine Ratio Glucose Calcium Total Bilirubin AST ALT Alkaline Phosphatase Total Protein Albumin Globulin Albumin/Globulin Ratio TSH Urine Color Urine Appearance Urine pH Ur Specific [place] Urine Protein Urine Glucose (UA) Urine Ketones Urine Blood Urine Nitrite Urine Bilirubin Urine Urobilinogen Ur Leukocyte Esterase Urine WBC (Auto) Urine RBC (Auto) U Hyaline Cast (Auto) U Epithel Cells (Auto) Urine Bacteria (Auto) Nasal Screen MRSA (PCR) Negative Salicylates Urine Opiates Screen Neg Ur Methadone, Qual Neg Acetaminophen Urine Barbiturates Neg Ur Phencyclidine (PCP) Neg U Amphetamin/Meth Scrn Neg MDMA (Ecstasy) Screen Neg U Benzodiazepines Scrn Neg [place] Ur Cocaine Metabolite Neg U Marijuana (THC) Screen Neg Ethyl Alcohol mg/dL < 3.0 08/03/19 20:40 WBC RBC Hgb Hct MCV MCH MCHC RDW Std Deviation RDW Coeff of Ronald Plt Count MPV Immature Gran % (Auto) Neut % (Auto) Lymph % (Auto) [place] % (Auto) Eos % (Auto) Baso % (Auto) Immature Gran # (Auto) Neut # (Auto) Lymph # (Auto) [place] # (Auto) Eos # (Auto) Baso # (Auto) Sodium Potassium Chloride Carbon Dioxide Anion Gap BUN Creatinine Est Cr Clr Drug Dosing Est GFR ( Amer) Est GFR (Non-Af Amer) BUN/Creatinine Ratio Glucose Calcium Total Bilirubin AST ALT Alkaline Phosphatase Total Protein Albumin Globulin Albumin/Globulin Ratio TSH Urine Color Yellow Urine Appearance Clear Urine pH 5.0 Ur Specific [place] 1.020 Urine Protein Negative Urine Glucose (UA) Negative Urine Ketones Negative Urine Blood 2+ H Urine Nitrite Negative Urine Bilirubin Negative Urine Urobilinogen Negative Ur Leukocyte Esterase 2+ H Urine WBC (Auto) >30 H Urine RBC (Auto) 0-4 U Hyaline Cast (Auto) 1-5 U Epithel Cells (Auto) >30 H Urine Bacteria (Auto) Negative Nasal Screen MRSA (PCR) Salicylates Urine Opiates Screen Ur Methadone, Qual Acetaminophen Urine Barbiturates Ur Phencyclidine (PCP) U Amphetamin/Meth Scrn MDMA (Ecstasy) Screen U Benzodiazepines Scrn [place] Ur Cocaine Metabolite U Marijuana (THC) Screen Ethyl Alcohol mg/dL Current Inpatient Medications Current Inpatient Medications: Current Inpatient Medications Acetaminophen (Tylenol) 650 mg PO Q4H PRN PRN Reason: Headache or Minor Fever Stop: 09/02/19 20:46 Al Hydrox/Mg Hydrox/Simethicone (Maalox) 30 ml PO Q4H PRN PRN Reason: GI Upset Stop: 09/02/19 20:46 Bismuth Subsalicylate (Kaopectate) 15 ml PO PRN PRN PRN Reason: Loose Stool Stop: 09/02/19 20:46 Diphenhydramine HCl (Benadryl Capsule) 50 mg PO BID [facility] Stop: 09/03/19 10:59 Hydroxyzine HCl (Vistaril) 50 mg PO HSZ PRN PRN Reason: Insomnia Stop: 09/02/19 20:46 Hydroxyzine HCl (Vistaril) 25 mg PO Q4H PRN PRN Reason: Anxiety Stop: 09/02/19 20:46 Levothyroxine Sodium (Synthroid) 75 mcg PO DAILYBB [facility] Stop: 09/04/19 07:59 [place] Carbonate ([place] Carbonate) 300 mg PO BID [facility] Stop: 09/02/19 21:44 Last Admin: 08/03/19 22:18 Dose: 300 mg Documented by: Loratadine (Claritin) 10 mg PO QAM [facility] Stop: 09/03/19 10:59 Magnesium Hydroxide (Milk Of Magnesia) 30 ml PO DAILY PRN PRN Reason: Constipation Stop: 09/02/19 20:46 Miscellaneous (Remove Nicoderm Patch) 1 ea N/A DAILY@0859 [facility] Stop: 09/03/19 08:58 Nicotine ([facility] Cq) [facility] [place]: 09/03/19 08:59 Pantoprazole Sodium (Protonix) 40 mg PO HS [facility] Stop: 09/03/19 21:59 Risperidone (Risperdal M) 1 mg PO BID PRN PRN Reason: Agitation Stop: 09/02/19 21:16 Risperidone (Risperdal) 4 mg PO HS [facility] Stop: 09/03/19 21:59 Risperidone (Risperdal) 3 mg PO QAM [facility] Stop: 09/03/19 10:59 Simethicone (Mylicon) 80 mg PO TID PRN PRN Reason: Gas or Constipation Stop: 09/03/19 13:59 Simvastatin (Zocor) 10 mg PO HS [facility] Stop: 09/03/19 21:59 Sodium Chloride ([place] Nasal) 1 - 2 sprays NA PRN PRN PRN Reason: Nasal Dryness/Congestion Stop: 09/02/19 20:46
[2019-08-04] MEDS: NICOTINE 7 MG/24 HR TDSY TD SCH (11:59)
[2019-08-04] MEDS: LITHIUM CARBONATE 300 MG TAB PO SCH ×2 (12:00→21:36)
[2019-08-04] MEDS: LORATADINE 10 MG TAB PO SCH (12:01)
[2019-08-04] MEDS: risperiDONE 1 MG TABLET PO SCH (12:02)
[2019-08-04] MEDS: PANTOprazole 40 MG TAB PO SCH (21:36)
[2019-08-04] MEDS: RISPERIDONE ODT 1MG PO SCH (21:37)
[2019-08-04] MEDS: SIMVASTATIN 10 MG TAB PO SCH (21:38)
[2019-08-04] MEDS ORDERED: risperiDONE 2 MG TABLET PO SCH (22:00)
[2019-08-05] MEDS: LITHIUM CARBONATE 300 MG TAB PO SCH ×2 (08:05→21:22)
[2019-08-05] MEDS: LEVOTHYROXINE SODIUM 75 MCG TABLET PO SCH (08:05)
[2019-08-05] MEDS: LORATADINE 10 MG TAB PO SCH (08:05)
[2019-08-05] MEDS: NICOTINE 7 MG/24 HR TDSY TD SCH (08:06)
[2019-08-05] MEDS ORDERED: RISPERIDONE ODT 1MG PO SCH (09:00)
--- NOTE | 2019-08-05 16:00 | Psychiatric Progress Note ---
Date of Service August 05, 2019 Impression / Recommendations Impression Per admitting provider: This 63-year-old female with the presumed diagnosis of schizoaffective disorder bipolar type was been admitted through the emergency department on a 302 commitment following a petition by her grandson. The petition alleges that the patient told him that she was going to shoot herself with a gun. The petition also mentions that she is homeless. The patient, herself, reports that she is not suicidal, never threatened to shoot herself with a gun, and has never made a suicide attempt in the pastalthough the records suggest that she reportedly had made a suicide attempt by self cutting i n 2017. The past record indicates that the patient had symptoms suggestive of schizophrenia, and then subsequently developed mood swings suggestive of christine. There also reportedly is a history of poorly controlled behavior in the community, and her family reportedly has filed and have been granted a protection from abuse (PFA) order. Further, it has been reported that the patient was imprisoned for approximately 1 year on charges of making terroristic threats against her family, and she has only recently been released. Evaluation of this patient was complicated by the fact that she speaks little Brazilian, but does seem to understand basic pleasantries and Brazilian. The interview was conducted first by the interviewer's very limited Hungarian, and then was completed in detail with the assistance of an Internet motor vehicle parts interpreter through an iPad. The patient, herself, indicates that she has not taken any of her medications, including any of her psychiatric medications for at least 5 days. She was seen in the emergency room during the previous weekend and released. It seems that at some point subsequent to that she ended up leaving the [facility] room that was being provided for her by a local benevolent organization and, according the patient, she has been living and sleeping "on the streets" for at least several days. During the period of time in question, [employer] has been under a freeze warning, but the patient insists that she did not get cold. Reports from community providers are that she has been neglecting self-care, not attending to her personal needs, not taking her medicines, and not eating. Also, during her interview with us she told us that people are trying to kill her, although she does not elaborate. 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 It was also evident that she was highly suspicious of the motor vehicle parts interpreter and, according to the motor vehicle parts interpreter, she frequently insulted him or falsely accused him of things such as shouting at her, or being arrogant, or badgering her. Although their conversations were in Hungarian, it was clear that the motor vehicle parts interpreter was in no way shouting at her, and did not appear to be anything other than professional and polite. Also, although the patient reports that she does not hear voices that other people do not hear, and although this has reportedly been the case in the past, she does appear to be responding as if to internal stimuli. For example, she will suddenly turn her head in a certain direction smile and not as if responding to a non-heard voice. (1) Noncompliance with medication regimen: 08/04/19 - The patient indicates that she has stopped taking her medicine because the names of the directions for the medications are in Brazilian and she cannot read them. She also indicates that she no longer has access to her medications and has not taken any for approximately 5 days. The patient also claims to not recall the names of any of her medications and reports that she does not have the conditions for which her known medications are clearly intended. She also seems not to be oriented to year, and memory deficits on testing suggests that there may be some cognitive impairment as well. -The patient's underlying psychiatric condition will be actively treated. It is hoped that with treatment we will be able to better assess whether the patient can independently manage medications, or if she will need active assistance in this regard when she returns to the community. -She has a history of favorably responding to risperidone. We will start the patient on risperidone M tabs at her reported outpatient recommended dose, and as tolerated we will talk to the patient about converting to a Depo form of risperidone, given her history of medication nonadherence. 08/04 -Has been compliant with lithium and Risperdal in the hospital -reviewed Li 0.2 on 08/03/19 (2) Psychosis: 08/04/19 -The patient has been admitted to the locked, secured behavioral health unit and has been placed in special observation room. She is also being monitored with close observations and every 15-minute direct observation. When more stable she will be actively encouraged to participate in individual, group, and activity therapies. We will also attempt to involve the family if the patient permits us to and if they agree. -Although she was given a diagnosis of schizophrenia in the emergency room, the record, and the patient's presentation, is more consistent with a diagnosis of schizoaffective disorder, bipolar type. She has a reported history of responding favorably to risperidone, and, in addition, she had been prescribed lithium carbonate prior to admission. The issue may be nonadherence with these medications, and the first plan is to restart them at risperidone 3 mg in the morning and 4 mg at bedtime (oral dissolving tablets to help assure adherence) and lithium carbonate 300 mg twice a day with a plan to check her lithium level next week. 08/04 -Interview was difficult again today due to apparent paranoia and lability of affect while utilizing motor vehicle parts interpreter services. Cannot rule out cognitive dysfunction in addition to psychosis. Appears she was not restarted on AM dose of risperdal yesterday. Will attempt to reconfirm prior home dose before restarting due to higher risk for SE at that dose and increased risk for EPS if titrated too quickly. We will continue to expand database as able. (3) Homeless: 08/04/19 -Until recently, the patient reportedly had been living in a motel room and a "[employer]" motel in [place]. This accommodation was provided through a local benevolent organization known as [facility] However, this organization has notified us today that they were only able to provide accommodations during cold weather seasons and that, accordingly, they will not be able to provide accommodations over the balance of the spring, summer, and early derian. -In the past, the patient is live with family members. However, this is clearly not an option at the present time. The context is that the patient reportedly was in [facility] for approximately a year because of her making terroristic threats against the family. While it does seem clear that the family wants to help protect her, they are unable to safely provide [place] [facility]. Given the patient's history of neglect of self-care, medication nonadherence, and possible cognitive deficits we are going to investigate structured residential programs as part of our discharge planning. Inventory Assets Strengths: Agrees to take medications. Basically cooperative with treatment. Pleasant on approach. Concerned family members. Needs: Resolution of psychotic features. Medication adherence. Stable living environment. Risk Factors Assessment Male: No : No Do You Have Access To A Gun?: No Health Problems: Yes Mental Health Diagnoses: Yes Substance Use Disorders: Yes (Patient makes reference to smoking marijuana, but does not clear if this is something that is done regularly or if it interferes anyway with her functioning.) Previous Attempt: No (The patient insists that she does not have a history of intentional self injury. 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 Review of Systems Notes She denied pain or any physical complaints/concerns Sleep Information Total Hours of Sleep: 7.25 Meal Information Percent Meal Consumed - Breakfast: 100 Percent Meal Consumed - Lunch: 100 Percent Meal Consumed - Dinner: 100 Subjective Subjective Patient was seen & assessed and interval progress reviewed with treatment team. Patient admitted yesterday and reportedly tolerated motor vehicle parts interpreter services on the iPad poorly becoming suspicious with interviewer. She is on a 302 which will be up on Wednesday at 1857. She has expressed paranoia that people are trying to kill her. Per case management there appears there has been concern in the community that patient was not adequately attending self-care or taking medications. She was started back on Risperdal yesterday at 4 mg in the evening and appears to be tolerating today without EPS. Interview today is conducted via motor vehicle parts interpreter phone hoping this would be more tolerable for patient and she initially appears bright and cooperative but upon being asked about purpose of prescribed medications she abruptly appears angry, suspicious, and provides little additional information. She repeatedly states that she only needs instructions on how to take the medication because she cannot speak Brazilian. She states she was on her way home and I believe she communicated that it was a pink house and she has a contreras but cannot find it. She denied any treatment needs or questions. She became seemingly angry at the motor vehicle parts interpreter telling her to let her talk. Physical Exam Psychiatric Orientation: alert and + guarded Apperance: appropriately dressed and appropriately groomed Eye Contact: + fair eye contact Motor Behavior: + psychomotor agitation (She appears fidgety with hands and feet during interview); n akathisia and n tremor Variable volume and asael. At times speech seems hyperverbal with lengthy repetitious responses but little content Affect: + labile affect and + irritable affect Describes mood as good Thought Process: + thought process not linear or logical Thought Content: + delusional Suicidal Thoughts: denies suicidal thoughts (She denies that she expressed intent for self-harm prior to admission) Hallucinations: no auditory hallucinations and no visual hallucinations Cognition: + recent memory not intact Insight: + poor insight Judgement: + poor judgement Vital Signs (Past 24 Hours) Last Vital Signs Temp 36.9 C 08/05/19 06:00 Pulse 71 08/05/19 06:00 Resp 18 08/05/19 06:00 BP 86/52 L 08/05/19 06:00 Pulse Ox 95 08/03/19 21:25 Results & Data ([facility]) Current Inpatient Medications Current Inpatient Medications: Current Inpatient Medications Acetaminophen (Tylenol) 650 mg PO Q4H PRN PRN Reason: Headache or Minor Fever Stop: 09/02/19 20:46 Al Hydrox/Mg Hydrox/Simethicone (Maalox) 30 ml PO Q4H PRN PRN Reason: GI Upset Stop: 09/02/19 20:46 Bismuth Subsalicylate (Kaopectate) 15 ml PO PRN PRN PRN Reason: Loose Stool Stop: 09/02/19 20:46 Diphenhydramine HCl (Benadryl Capsule) 50 mg PO BID [facility] Stop: 09/03/19 10:59 Last Admin: 08/05/19 08:05 Dose: 50 mg Documented by: Hydroxyzine HCl (Vistaril) 50 mg PO HSZ PRN PRN Reason: Insomnia Stop: 09/02/19 20:46 Hydroxyzine HCl (Vistaril) 25 mg PO Q4H PRN PRN Reason: Anxiety Stop: 09/02/19 20:46 Levothyroxine Sodium (Synthroid) 75 mcg PO DAILYBB [facility] Stop: 09/04/19 07:59 Last Admin: 08/05/19 08:05 Dose: 75 mcg Documented by: [place] Carbonate ([place] Carbonate) 300 mg PO BID [facility] Stop: 09/02/19 21:44 Last Admin: 08/05/19 08:05 Dose: 300 mg Documented by: Loratadine (Claritin) 10 mg PO QAM [facility] Stop: 09/03/19 10:59 Last Admin: 08/05/19 08:05 Dose: 10 mg Documented by: Magnesium Hydroxide (Milk Of Magnesia) 30 ml PO DAILY PRN PRN Reason: Constipation Stop: 09/02/19 20:46 Miscellaneous (Remove Nicoderm Patch) 1 ea N/A DAILY@858 [facility] Stop: 09/03/19 08:58 Last Admin: 08/05/19 08:14 Dose: Not Given Documented by: Nicotine (Nicoderm Cq) 7 mg TD [facility] Stop: 09/03/19 08:59 Last Admin: 08/05/19 08:06 Dose: 7 mg Documented by: Pantoprazole Sodium (Protonix) 40 mg PO [facility] Stop: 09/03/19 21:59 Last Admin: 08/04/19 21:36 Dose: 40 mg Documented by: Risperidone (Risperdal M) 4 mg PO [facility] Stop: 09/03/19 21:59 Last Admin: 08/04/19 21:37 Dose: 4 mg Documented by: Simethicone (Mylicon) 80 mg PO TID PRN PRN Reason: Gas or Constipation Stop: 09/03/19 13:59 Simvastatin (Zocor) 10 mg PO [facility] Stop: 09/03/19 21:59 Last Admin: 08/04/19 21:38 Dose: 10 mg Documented by: Sodium Chloride ([place] Nasal) 1 - 2 sprays NA PRN PRN PRN Reason: Nasal Dryness/Congestion Stop: 09/02/19 20:46 Mental Health & Subst Abuse Tx Tetryl Nitrator Operator Name of Tetryl Nitrator Operator: Lizzy March (1) Psychosis Psychosis type: unspecified psychosis type Qualified Code(s): F29 - Unspecified psychosis not due to a substance or known physiological condition
[2019-08-05] MEDS: SIMVASTATIN 10 MG TAB PO SCH (21:23)
[2019-08-05] MEDS: PANTOprazole 40 MG TAB PO SCH (21:23)
[2019-08-05] MEDS: RISPERIDONE ODT 1MG PO SCH (21:23)
[2019-08-06] MEDS: LEVOTHYROXINE SODIUM 75 MCG TABLET PO SCH (08:05)
[2019-08-06] MEDS: LORATADINE 10 MG TAB PO SCH (08:06)
[2019-08-06] MEDS: LITHIUM CARBONATE 300 MG TAB PO SCH ×2 (08:07→21:13)
[2019-08-06] MEDS: NICOTINE 7 MG/24 HR TDSY TD SCH (08:11)
--- NOTE | 2019-08-06 13:22 | Psychiatric Progress Note ---
Date of Service August 06, 2019 Impression / Recommendations Impression Per admitting provider: This 63-year-old female with the presumed diagnosis of schizoaffective disorder bipolar type was been admitted through the emergency department on a 302 commitment following a petition by her grandson. The petition alleges that the patient told him that she was going to shoot herself with a gun. The petition also mentions that she is homeless. The patient, herself, reports that she is not suicidal, never threatened to shoot herself with a gun, and has never made a suicide attempt in the pastalthough the records suggest that she reportedly had made a suicide attempt by self cutting i n 2017. The past record indicates that the patient had symptoms suggestive of schizophrenia, and then subsequently developed mood swings suggestive of christine. There also reportedly is a history of poorly controlled behavior in the community, and her family reportedly has filed and have been granted a protection from abuse (PFA) order. Further, it has been reported that the patient was imprisoned for approximately 1 year on charges of making terroristic threats against her family, and she has only recently been released. Evaluation of this patient was complicated by the fact that she speaks little [place], but does seem to understand basic pleasantries and [place]uran. The interview was conducted first by the interviewer's very limited Faroese, and then was completed in detail with the assistance of an Internet log chain worker through an iPad. The patient, herself, indicates that she has not taken any of her medications, including any of her psychiatric medications for at least 5 days. She was seen in the emergency room during the previous weekend and released. It seems that at some point subsequent to that she ended up leaving the [facility] room that was being provided for her by a local benevolent organization and, according the patient, she has been living and sleeping "on the streets" for at least several days. During the period of time in question, [employer] has been under a freeze warning, but the patient insists that she did not get cold. Reports from community providers are that she has been neglecting self-care, not attending to her personal needs, not taking her medicines, and not eating. Also, during her interview with us she told us that people are trying to kill her, although she does not elaborate. 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 It was also evident that she was highly suspicious of the log chain worker and, according to the log chain worker, she frequently insulted him or falsely accused him of things such as shouting at her, or being arrogant, or badgering her. Although their conversations were in Faroese, it was clear that the log chain worker was in no way shouting at her, and did not appear to be anything other than professional and polite. Also, although the patient reports that she does not hear voices that other people do not hear, and although this has reportedly been the case in the past, she does appear to be responding as if to internal stimuli. For example, she will suddenly turn her head in a certain direction smile and not as if responding to a non-heard voice. (1) Noncompliance with medication regimen: 08/04/19 - The patient indicates that she has stopped taking her medicine because the names of the directions for the medications are in [place]uran and she cannot read them. She also indicates that she no longer has access to her medications and has not taken any for approximately 5 days. The patient also claims to not recall the names of any of her medications and reports that she does not have the conditions for which her known medications are clearly intended. She also seems not to be oriented to year, and memory deficits on testing suggests that there may be some cognitive impairment as well. -The patient's underlying psychiatric condition will be actively treated. It is hoped that with treatment we will be able to better assess whether the patient can independently manage medications, or if she will need active assistance in this regard when she returns to the community. -She has a history of favorably responding to risperidone. We will start the patient on risperidone M tabs at her reported outpatient recommended dose, and as tolerated we will talk to the patient about converting to a Depo form of risperidone, given her history of medication nonadherence. 08/04 -Has been compliant with lithium and Risperdal in the hospital -reviewed Li 0.2 on 08/03/19 (2) Psychosis: 08/04/19 -The patient has been admitted to the locked, secured behavioral health unit and has been placed in special observation room. She is also being monitored with close observations and every 15-minute direct observation. When more stable she will be actively encouraged to participate in individual, group, and activity therapies. We will also attempt to involve the family if the patient permits us to and if they agree. -Although she was given a diagnosis of schizophrenia in the emergency room, the record, and the patient's presentation, is more consistent with a diagnosis of schizoaffective disorder, bipolar type. She has a reported history of responding favorably to risperidone, and, in addition, she had been prescribed lithium carbonate prior to admission. The issue may be nonadherence with these medications, and the first plan is to restart them at risperidone 3 mg in the morning and 4 mg at bedtime (oral dissolving tablets to help assure adherence) and lithium carbonate 300 mg twice a day with a plan to check her lithium level next week. 08/04 -Interview was difficult again today due to apparent paranoia and lability of affect while utilizing log chain worker services. Cannot rule out cognitive dysfunction in addition to psychosis. Appears she was not restarted on AM dose of risperdal yesterday. Will attempt to reconfirm prior home dose before restarting due to higher risk for SE at that dose and increased risk for EPS if titrated too quickly. We will continue to expand database as able. 08/05 -Affect remains odd and suspicious however she has not been overtly agitated or aggressive. -We will add 2 mg morning dose of Risperdal tomorrow working towards home dose of 3 mg in the morning and 4mg at bedtime -Ordered fasting glucose and lipids for a.m. for monitoring on atypical antipsychotic (3) Homeless: 08/04/19 -Until recently, the patient reportedly had been living in a motel room and a "[employer]" motel in [place]. This accommodation was provided through a local benevolent organization known as [facility] However, this organization has notified us today that they were only able to provide accommodations during cold weather seasons and that, accordingly, they will not be able to provide accommodations over the balance of the spring, summer, and early derian. -In the past, the patient is live with family members. However, this is clearly not an option at the present time. The context is that the patient reportedly was in custodial for approximately a year because of her making terroristic threats against the family. While it does seem clear that the family wants to help protect her, they are unable to safely provide care home. Given the patient's history of neglect of self-care, medication nonadherence, and possible cognitive deficits we are going to investigate structured residential programs as part of our discharge planning. Inventory Assets Strengths: Agrees to take medications. Basically cooperative with treatment. Pleasant on approach. Concerned family members. Needs: Resolution of psychotic features. Medication adherence. Stable living environment. Risk Factors Assessment Male: No : No Do You Have Access To A Gun?: No Health Problems: Yes Mental Health Diagnoses: Yes Substance Use Disorders: Yes (Patient makes reference to smoking marijuana, but does not clear if this is something that is done regularly or if it interferes anyway with her functioning.) Previous Attempt: No (The patient insists that she does not have a history of intentional self injury. 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 Review of Systems Notes Itchy skin, no rash Sleep Information Total Hours of Sleep: 6.75 Sleep Comments: toileted at 0130 Meal Information Percent Meal Consumed - Breakfast: 100 Percent Meal Consumed - Lunch: 100 Percent Meal Consumed - Dinner: 100 Subjective Subjective Patient was seen & assessed and interval progress reviewed with treatment team. No acute events overnight. Compliant with Risperdal at at bedtime. Nursing staff confirms with available records that patient was released from retirement on total of 7 mg of Risperdal daily. Patient interview today using the iPad-based foam tank laminator service and she is accepting of this and seems to interact more appropriately with the interviewer today. She minimizes areas of concern or distress. States mood is good. Denies thoughts to hurt herself or anyone else. Denies ideas of special yancey or special purpose. States muscles feel heavy but not tight. Denies pain or restlessness. Physical Exam Psychiatric Orientation: alert Apperance: appropriately dressed Eye Contact: + fair eye contact Motor Behavior: steady gait and station and + psychomotor agitation (Fidgets when speaking, frequently seen ambulating in hallways) Speech: no pressured speech Affect: + labile affect (Less labile today but still with a somewhat disinhibited quality) "Good" Thought Process: + perseveration (She perseverates on inability to speak languages other than Faroese or Lao) and + concrete thought process Identifiable thought content appears repetitive and unsophisticated with focus on communication barriers. She acknowledges thoughts that people are not trustworthy. Suicidal Thoughts: denies suicidal thoughts Homicidal Thoughts: denies homicidal thoughts Cognition: + attention not intact Insight: + poor insight Judgement: + poor judgement Vital Signs (Past 24 Hours) Last Vital Signs Temp 36.7 C 08/06/19 06:36 Pulse 59 L 08/06/19 06:37 Resp 20 08/06/19 06:36 BP 141/77 H 08/06/19 06:37 Pulse Ox 95 08/03/19 21:25 Results & Data ([facility]) Current Inpatient Medications Current Inpatient Medications: Current Inpatient Medications Acetaminophen (Tylenol) 650 mg PO Q4H PRN PRN Reason: Headache or Minor Fever Stop: 09/02/19 20:46 Al Hydrox/Mg Hydrox/Simethicone (Maalox) 30 ml PO Q4H PRN PRN Reason: GI Upset Stop: 09/02/19 20:46 Bismuth Subsalicylate (Kaopectate) 15 ml PO PRN PRN PRN Reason: Loose Stool Stop: 09/02/19 20:46 Diphenhydramine HCl (Benadryl Capsule) 50 mg PO BID CLARISA Stop: 09/03/19 10:59 Last Admin: 08/06/19 08:05 Dose: 50 mg Documented by: Hydroxyzine HCl (Vistaril) 50 mg PO HSZ PRN PRN Reason: Insomnia Stop: 09/02/19 20:46 Hydroxyzine HCl (Vistaril) 25 mg PO Q4H PRN PRN Reason: Anxiety Stop: 09/02/19 20:46 Levothyroxine Sodium (Synthroid) 75 mcg PO DAILYBB CLARISA Stop: 09/04/19 07:59 Last Admin: 08/06/19 08:05 Dose: 75 mcg Documented by: [place] Carbonate ([place] Carbonate) 300 mg PO BID [facility] Stop: 09/02/19 21:44 Last Admin: 08/06/19 08:07 Dose: 300 mg Documented by: Loratadine (Claritin) 10 mg PO QAM [facility] Stop: 09/03/19 10:59 Last Admin: 08/06/19 08:06 Dose: 10 mg Documented by: Magnesium Hydroxide (Milk Of Magnesia) 30 ml PO DAILY PRN PRN Reason: Constipation Stop: 09/02/19 20:46 Miscellaneous (Remove Nicoderm Patch) 1 ea N/A DAILY@59 [facility] Stop: 09/03/19 08:58 Last Admin: 08/06/19 08:09 Dose: Not Given Documented by: Nicotine (Nicoderm Cq) 7 mg TD [facility] Stop: 09/03/19 08:59 Last Admin: 08/06/19 08:11 Dose: Not Given Documented by: Pantoprazole Sodium (Protonix) 40 mg PO [facility] Stop: 09/03/19 21:59 Last Admin: 08/05/19 21:23 Dose: 40 mg Documented by: Risperidone (Risperdal M) 4 mg PO [facility] Stop: 09/03/19 21:59 Last Admin: 08/05/19 21:23 Dose: 4 mg Documented by: Simethicone (Mylicon) 80 mg PO TID PRN PRN Reason: Gas or Constipation Stop: 09/03/19 13:59 Simvastatin (Zocor) 10 mg PO [facility] Stop: 09/03/19 21:59 Last Admin: 08/05/19 21:23 Dose: 10 mg Documented by: Sodium Chloride (Cicero Nasal) 1 - 2 sprays NA PRN PRN PRN Reason: Nasal Dryness/Congestion Stop: 09/02/19 20:46 Mental Health & Subst Abuse Tx Software Specialist Name of Software Specialist: Lizzy March (1) Psychosis Psychosis type: unspecified psychosis type Qualified Code(s): F29 - Unspecified psychosis not due to a substance or known physiological condition
[2019-08-06] MEDS: RISPERIDONE ODT 1MG PO SCH (21:11)
[2019-08-06] MEDS: PANTOprazole 40 MG TAB PO SCH (21:11)
[2019-08-06] MEDS: SIMVASTATIN 10 MG TAB PO SCH (21:13)
[2019-08-07 07:06] LABS: Glucose Fasting 109 mg/dl (70-99)
[2019-08-07 07:12] LABS: Chol HDL Ratio 4; Cholesterol 221 mg/dl (0-200); HDL Cholesterol 50 mg/dl; LDL Cholesterol Calculated 148 mg/dl; Triglycerides 115 mg/dl (0-150); VLDL Cholesterol 23 mg/dl
[2019-08-07] MEDS: LORATADINE 10 MG TAB PO SCH (08:37)
[2019-08-07] MEDS: risperiDONE 2 MG TABLET PO SCH (08:37)
[2019-08-07] MEDS: LITHIUM CARBONATE 300 MG TAB PO SCH ×2 (08:37→21:10)
[2019-08-07] MEDS: LEVOTHYROXINE SODIUM 75 MCG TABLET PO SCH (08:37)
[2019-08-07] MEDS: NICOTINE 7 MG/24 HR TDSY TD SCH (08:39)
--- NOTE | 2019-08-07 08:59 | Psychiatric Progress Note ---
Date of Service August 07, 2019 Impression / Recommendations Impression Per admitting provider: This 63-year-old female with the presumed diagnosis of schizoaffective disorder bipolar type was been admitted through the emergency department on a 302 commitment following a petition by her grandson. The petition alleges that the patient told him that she was going to shoot herself with a gun and is homeless. She has a history of schizophrenia, and then subsequently developed mood swings suggestive of christine. There also reportedly is a history of poorly controlled behavior in the community, and her family reportedly has filed and have been granted a protection from abuse (PFA) order. Further, it has been reported that the patient was imprisoned for approximately 1 year on charges of making terroristic threats against her family, and was just released about a week ago. She reported that she had not taken any of her medications, including any of her psychiatric medications, for at least 5 days prior to presentation. She had been seen in the emergency room during the previous weekend and released. Apparently at some point subsequent to that she ended up leaving the motel room that was being provided for her by a local [employer] organization and was living and sleeping "on the streets" for at least several days, during which time overnight temperatures were below freezing. Reports from community providers are that she has been neglecting self-care, not attending to her personal needs, not taking her medicines, and not eating. 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 She is demonstrating paranoia and responding to auditory and visual hallucinations here, and laughing and smiling inappropriately. She claims that she owns a house in [place], but could not find it as she lost the address. We are awaiting additional collateral information from her outpatient [facility], and she will have a 303 hearing tomorrow as she is severely mentally ill and unable to provide for her own basic needs as a result, and additionally threatened to kill herself as detailed in the 302 petition. (1) Noncompliance with medication regimen: 08/04/19 - The patient indicates that she has stopped taking her medicine because the names of the directions for the medications are in Estonian and she cannot read them. She also indicates that she no longer has access to her medications and has not taken any for approximately 5 days. The patient also claims to not recall the names of any of her medications and reports that she does not have the conditions for which her known medications are clearly intended. She also seems not to be oriented to year, and memory deficits on testing suggests that there may be some cognitive impairment as well. -The patient's underlying psychiatric condition will be actively treated. It is hoped that with treatment we will be able to better assess whether the patient can independently manage medications, or if she will need active assistance in this regard when she returns to the community. -She has a history of favorably responding to risperidone. We will start the patient on risperidone M tabs at her reported outpatient recommended dose, and as tolerated we will talk to the patient about converting to a Depo form of risperidone, given her history of medication nonadherence. 08/04 -Has been compliant with lithium and Risperdal in the hospital -reviewed Li 0.2 on 08/03/19 (2) Psychosis: 08/04/19 -The patient has been admitted to the locked, secured behavioral health unit and has been placed in special observation room. She is also being monitored with close observations and every 15-minute direct observation. When more stable she will be actively encouraged to participate in individual, group, and activity therapies. We will also attempt to involve the family if the patient permits us to and if they agree. -Although she was given a diagnosis of schizophrenia in the emergency room, the record, and the patient's presentation, is more consistent with a diagnosis of schizoaffective disorder, bipolar type. She has a reported history of responding favorably to risperidone, and, in addition, she had been prescribed lithium carbonate prior to admission. The issue may be nonadherence with these medications, and the first plan is to restart them at risperidone 3 mg in the morning and 4 mg at bedtime (oral dissolving tablets to help assure adherence) and lithium carbonate 300 mg twice a day with a plan to check her lithium level next week. 08/04 -Interview was difficult again today due to apparent paranoia and lability of affect while utilizing police sergeant precinct services. Cannot rule out cognitive dysfunction in addition to psychosis. Appears she was not restarted on AM dose of risperdal yesterday. Will attempt to reconfirm prior home dose before restarting due to higher risk for SE at that dose and increased risk for EPS if titrated too quickly. We will continue to expand database as able. 08/05 -Affect remains odd and suspicious however she has not been overtly agitated or aggressive. -We will add 2 mg morning dose of Risperdal tomorrow working towards home dose of 3 mg in the morning and 4mg at bedtime -Ordered fasting glucose and lipids for a.m. for monitoring on atypical antipsychotic 08/06 -Patient remains psychotic, delusional, unable to come up with a reasonable discharge plan (today states she owns a house in [place] that she just bought, but wants the address and does not know where it is). She denies that her family has a PFA against her or that she has any legal problems. She is not a reliable historian, and we will reach out to her [facility] to try to get additional collateral information. -303 hearing scheduled for tomorrow, will request a discharge planning meeting with the county afterwards. -Continue lithium and risperidone, and explore options for outpatient treatment/obtaining medications given her lack of resources. -Fasting labs reviewed for monitoring on an atypical antipsychotic; glucose 109, cholesterol 221, remainder within normal limits. (3) Homeless: 08/04/19 -Until recently, the patient reportedly had been living in a motel room and a "[employer]" motel in [place]. This accommodation was provided through a local benevolent organization known as [employer] However, this organization has notified us today that they were only able to provide accommodations during cold weather seasons and that, accordingly, they will not be able to provide accommodations over the balance of the spring, summer, and early derian. -In the past, the patient is live with family members. However, this is clearly not an option at the present time. The context is that the patient reportedly was in custodial for approximately a year because of her making terroristic threats against the family. While it does seem clear that the family wants to help protect her, they are unable to safely provide halfway. Given the patient's history of neglect of self-care, medication nonadherence, and possible cognitive deficits we are going to investigate structured residential programs as part of our discharge planning. Inventory Assets Strengths: Agrees to take medications. Basically cooperative with treatment. Pleasant on approach. Concerned family members. Needs: Resolution of psychotic features. Medication adherence. Stable living environment. Risk Factors Assessment Male: No : No Do You Have Access To A Gun?: No Health Problems: Yes Mental Health Diagnoses: Yes Substance Use Disorders: Yes (Patient makes reference to smoking marijuana, but does not clear if this is something that is done regularly or if it interferes anyway with her functioning.) Previous Attempt: No (The patient insists that she does not have a history of intentional self injury. 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.") : No Responsible for Young Children: No Employed: No Stable Relationships: No Supportive Family: Yes (The patient's family has filed a PFA against the patient due to her past behaviors, but it is clear that they remain protective over.) Good Rapport with Provider: No Absence of Any Risk Factors Above: No Interval History Identifying Information ANDREW CYR is a 63-year-old F who has a history of schizoaffective disorder, bipolar type and was admitted on 08/03/19 20:47 on a 302 involuntary commitment after her grandson reported that she had told him that she had very recently threatened to get a gun and shoot herself. Chief Complaint " Good". Review of Systems Sleep Information Total Hours of Sleep: 7.5 Sleep Comments: toileted at 0130 Meal Information Percent Meal Consumed - Breakfast: 100 Percent Meal Consumed - Lunch: 100 Percent Meal Consumed - Dinner: 100 Subjective Subjective Patient was seen & assessed and interval progress reviewed with treatment team. Staff report she is not attending groups, spends time in her room or walking in the hallways, observed talking to herself and grabbing empty space above her head as if responding to visual hallucinations. She has also been observed looking around the room as if responding to auditory hallucinations, and talking out loud when no one else is there. She is eating well, and taking medication as prescribed. Her medical case worker, Lizzy, from [facility] called and reported that patient was just assigned to her last week after she was discharged from penitentiary, is from [facility], and is now in the [place] illegally. The penitentiary contacted ICE upon discharge, but they did not want to pick her up. During her incarceration, she was hospitalized at [facility]. Her family has a PFA against her, and her brother owns to local restaurants. Her BCM was going to reach out to family to gather information. On admission, she was resumed on lithium and risperidone, which has been titrated to 6 mg daily. On my assessment, she was seen with the casing fluid tender #[id number]. She is oriented to self, town, hospital (but not what floor/unit), month, but not year (2001). She cannot explain how she came to be in the hospital, or why she is on the behavioral health unit. She says she was released from penitentiary and could not find her house, as she had the address on a piece of paper but lost it. She says that she bought a house, and lives there alone, and although insists it is in [place], cannot give me any other information about it. She says she was trying to contact her brother to find out where the houses, but did not have his phone number. She cannot identify anybody that we could contact to help clarify. She says she was living in a hotel, and getting food from the hotel, but has no income, or way to support herself or get food. She denies that her family has a PFA against her. She says that she was in penitentiary for something that she did not do, but once they investigated it and realized she did not do it, they let her go. She later says she came to the hospital in order to get medications, but cannot say what medications or for what symptoms or illness. She denies having a mental illness, and does not know what medication she is currently prescribed. She then says she got sent to the hospital because she went to a clinic in the penitentiary 5 days ago to see a doctor, and could not understan d the "formula because it was in Estonian, so I couldn't take the medication." She says she needs to be in the hospital because she needs "a prescription, there were some incoherencies, took me to the doctor, diagnosed me, gave medicines." When informed of the 303 hearing to be held tomorrow, she states "I feel fine, and I have papers with the date of release, and it's just when I was going home I lost the address, and my brother had an appointment he couldn't get to, and I couldn't get to the home." She then talks about leaving her medication in a closet downstairs, stating she was trying to donate it but "they told me not to because it's very expensive." Physical Exam Psychiatric Orientation: alert Oriented X 4/6 Apperance: appropriately dressed, appropriately groomed and appeared stated age Overweight, seated on the edge of bed in no acute distress. Casually dressed in blue jeans and a white T-shirt. Short, curly mahajan hair. Eye Contact: + fair eye contact Motor Behavior: steady gait and station and no abnormal motor movements Soft at times, mumbles under her breath, has to be reminded to speak up several times so that the police sergeant precinct can hear her. "Good." Mildly expansive, smiling and laughing inappropriately Thought Process: + tangential thought process, + perseveration and + incoherent thought process Thought Content: + delusions Suicidal Thoughts: denies suicidal thoughts Homicidal Thoughts: denies homicidal thoughts Patient denies, but has been observed responding to visual and auditory hallucinations Cognition: + recent memory not intact, + remote memory not intact and + attention not intact Insight: + severely impaired insight Judgement: + severely impaired judgement Vital Signs (Past 24 Hours) Last Vital Signs Temp 36.7 C 08/07/19 06:52 Pulse 77 08/07/19 06:52 Resp 18 08/07/19 06:52 BP 138/88 08/07/19 06:52 Pulse Ox 95 08/03/19 21:25 Results & Data ([facility]) Laboratory Results Laboratory Results - last 24 hr 08/07/19 06:05 Fasting Glucose 109 H Triglycerides 115 Cholesterol 221 H LDL Cholesterol, Calc 148 VLDL Cholesterol, Calc 23 HDL Cholesterol 50 Cholesterol/HDL Ratio 4 Current Inpatient Medications Current Inpatient Medications: Current Inpatient Medications Acetaminophen (Tylenol) 650 mg PO Q4H PRN PRN Reason: Headache or Minor Fever Stop: 09/02/19 20:46 Al Hydrox/Mg Hydrox/Simethicone (Maalox) 30 ml PO Q4H PRN PRN Reason: GI Upset Stop: 09/02/19 20:46 Bismuth Subsalicylate (Kaopectate) 15 ml PO PRN PRN PRN Reason: Loose Stool Stop: 09/02/19 20:46 Diphenhydramine HCl (Benadryl Capsule) 50 mg PO BID [facility] Stop: 09/03/19 10:59 Last Admin: 08/07/19 08:37 Dose: 50 mg Documented by: Hydroxyzine HCl (Vistaril) 50 mg PO HSZ PRN PRN Reason: Insomnia Stop: 09/02/19 20:46 Hydroxyzine HCl (Vistaril) 25 mg PO Q4H PRN PRN Reason: Anxiety Stop: 09/02/19 20:46 Levothyroxine Sodium (Synthroid) 75 mcg PO DAILYBB [facility] Stop: 09/04/19 07:59 Last Admin: 08/07/19 08:37 Dose: 75 mcg Documented by: Medicine Bow Carbonate (Medicine Bow Carbonate) 300 mg PO BID [facility] Stop: 09/02/19 21:44 Last Admin: 08/07/19 08:37 Dose: 300 mg Documented by: Loratadine (Claritin) 10 mg PO QAM [facility] Stop: 09/03/19 10:59 Last Admin: 08/07/19 08:37 Dose: 10 mg Documented by: Magnesium Hydroxide (Milk Of Magnesia) 30 ml PO DAILY PRN PRN Reason: Constipation Stop: 09/02/19 20:46 Miscellaneous (Remove Nicoderm Patch) 1 ea N/A DAILY@0859 [facility] Stop: 09/03/19 08:58 Last Admin: 08/07/19 08:39 Dose: Not Given Documented by: Nicotine ([facility]oderm Cq) [facility] Stop: 09/03/19 08:59 Last Admin: 08/07/19 08:39 Dose: Not Given Documented by: Pantoprazole Sodium (Protonix) 40 mg PO [facility] Stop: 09/03/19 21:59 Last Admin: 08/06/19 21:11 Dose: 40 mg Documented by: Risperidone (Risperdal M) 4 mg PO [facility] Stop: 09/03/19 21:59 Last Admin: 08/06/19 21:11 Dose: 4 mg Documented by: Risperidone (Risperdal) 2 mg PO QAM [facility] Stop: 09/06/19 08:59 Last Admin: 08/07/19 08:37 Dose: 2 mg Documented by: Simethicone (Mylicon) 80 mg PO TID PRN PRN Reason: Gas or Constipation Stop: 09/03/19 13:59 Simvastatin (Zocor) 10 mg PO HS [facility] Stop: 09/03/19 21:59 Last Admin: 08/06/19 21:13 Dose: 10 mg Documented by: Sodium Chloride ([place] Nasal) 1 - 2 sprays NA PRN PRN PRN Reason: Nasal Dryness/Congestion Stop: 09/02/19 20:46 Mental Health & Subst Abuse Tx Chinese Instructor Name of Chinese Instructor: Lizzy March (1) Psychosis Psychosis type: unspecified psychosis type Qualified Code(s): F29 - Unspecified psychosis not due to a substance or known physiological condition
[2019-08-07] MEDS: SIMVASTATIN 10 MG TAB PO SCH (21:10)
[2019-08-07] MEDS: RISPERIDONE ODT 1MG PO SCH (21:10)
[2019-08-07] MEDS: PANTOprazole 40 MG TAB PO SCH (21:10)
[2019-08-08] MEDS: LEVOTHYROXINE SODIUM 75 MCG TABLET PO SCH (07:45)
[2019-08-08] MEDS: LORATADINE 10 MG TAB PO SCH (07:45)
[2019-08-08] MEDS: LITHIUM CARBONATE 300 MG TAB PO SCH ×2 (07:45→21:14)
[2019-08-08] MEDS: risperiDONE 2 MG TABLET PO SCH (07:46)
[2019-08-08] MEDS: NICOTINE 7 MG/24 HR TDSY TD SCH (07:46)
--- NOTE | 2019-08-08 08:13 | Psychiatric Progress Note ---
Date of Service August 08, 2019 Impression / Recommendations Impression 63-year-old female from [place] who has a history of schizophrenia vs schizoaffective disorder (presumed diagnosis of schizoaffective disorder bipolar type) and was admitted after 2 ER visits in 1 week for psychosis and inability to care for herself. She presented on a 302 commitment following a petition by her grandson stating she told him that she was going to shoot herself with a gun and is homeless. She was imprisoned for approximately 1 year on charges of making terroristic threats, and was released 07/24, but was not taking medications and was homeless. She had been seen in the emergency room during the previous weekend and released after several days of stable behavior in the ER. [facility] [employer] [facility] was paying for a hotel room for her, but she left and was sleeping "on the streets" for at least several days, during which time overnight temperatures were below freezing. Reports from community providers are that she has been neglecting self-care, not attending to her personal needs, not taking her m edicines, and not eating. 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 She is demonstrating paranoia and responding to auditory and visual hallucinations. She is on a 303 as of 08/07. Inpatient treatment is medically necessary as she is severely mentally ill and unable to provide for her own basic needs as a result, and additionally threatened to kill herself as detailed in the 302 petition. (1) Noncompliance with medication regimen: 08/04/19 - The patient indicates that she has stopped taking her medicine because the names of the directions for the medications are in Welsh and she cannot read them. She also indicates that she no longer has access to her medications and has not taken any for approximately 5 days. The patient also claims to not recall the names of any of her medications and reports that she does not have the conditions for which her known medications are clearly intended. She also seems not to be oriented to year, and memory deficits on testing suggests that there may be some cognitive impairment as well. -The patient's underlying psychiatric condition will be actively treated. It is hoped that with treatment we will be able to better assess whether the patient can independently manage medications, or if she will need active assistance in this regard when she returns to the community. -She has a history of favorably responding to risperidone. We will start the patient on risperidone M tabs at her reported outpatient recommended dose, and as tolerated we will talk to the patient about converting to a Depo form of risperidone, given her history of medication nonadherence. 08/04 -Has been compliant with lithium and Risperdal in the hospital -reviewed Li 0.2 on 08/03/1908/07 - Would benefit from CANTOR and will explore options once we know where she will get outpatient treatment. Barriers include finances, lack of insurance, homelessness, lack of supports, poor insight. (2) Psychosis: 08/04/19 -The patient has been admitted to the locked, secured behavioral health unit and has been placed in special observation room. She is also being monitored with close observations and every 15-minute direct observation. When more stable she will be actively encouraged to participate in individual, group, and activity therapies. We will also attempt to involve the family if the patient permits us to and if they agree. -Although she was given a diagnosis of schizophrenia in the emergency room, the record, and the patient's presentation, is more consistent with a diagnosis of schizoaffective disorder, bipolar type. She has a reported history of responding favorably to risperidone, and, in addition, she had been prescribed lithium carbonate prior to admission. The issue may be nonadherence with these medications, and the first plan is to restart them at risperidone 3 mg in the morning and 4 mg at bedtime (oral dissolving tablets to help assure adherence) and lithium carbonate 300 mg twice a day with a plan to check her lithium level next week. 08/04 -Interview was difficult again today due to apparent paranoia and lability of affect while utilizing diplomatic interpreter services. Cannot rule out cognitive dysfunction in addition to psychosis. Appears she was not restarted on AM dose of risperdal yesterday. Will attempt to reconfirm prior home dose before restarting due to higher risk for SE at that dose and increased risk for EPS if titrated too quickly. We will continue to expand database as able. 08/05 -Affect remains odd and suspicious however she has not been overtly agitated or aggressive. -We will add 2 mg morning dose of Risperdal tomorrow working towards home dose of 3 mg in the morning and 4mg at bedtime -Ordered fasting glucose and lipids for a.m. for monitoring on atypical antipsychotic 08/06 -Patient remains psychotic, delusional, unable to come up with a reasonable discharge plan (today states she owns a house in [place] that she just bought, but wants the address and does not know where it is). She denies that her family has a PFA against her or that she has any legal problems. She is not a reliable historian, and we will reach out to her [facility] to try to get additional collateral information. -303 hearing scheduled for tomorrow, will request a discharge planning meeting with the [facility] afterwards. -Continue lithium and risperidone, and explore options for outpatient treatment/obtaining medications given her lack of resources. -Fasting labs reviewed for monitoring on an atypical antipsychotic; glucose 109, cholesterol 221, remainder within normal limits. 08/07 -303 hearing held and granted. Recommend 304 IOC given her history of treatment noncompliance, lack of insight, frequent hospitalizations, and severity of psychotic symptoms and erratic, unsafe behavior when acutely psychotic. -Request records from psychiatric treatment while incarcerated. Patient refused to sign INO for [facility] (where she was referred for outpatient treatment during her 2018 hospitalization here). -Get collateral information from family, as patient reports they were helping her to establish housing. She signed an INO for her grandson who was also the 302 petitioner. -Discharge planning meeting with [facility] Lizzy Katherin. Explore options for housing assistance and OP care (numerous barriers including language, lack of resources/income, citizenship, lack of insurance, poor insight and adherence). -Continue risperidone and increase to 3mg qam and 4mg hs. Explore options for CANTOR (will depend largely on where/how she will access OP care, as no insurance so will have to explore ways to get CANTOR covered). Check w/ [facility] re: ability to supply/administer CANTOR. -Continue lithium and check trough level tomorrow. (3) Homeless: 08/04/19 -Until recently, the patient reportedly had been living in a motel room and a "[place]" motel in [place]. This accommodation was provided through a local benevolent organization known as [facility] [employer]." However, this organization has notified us today that they were only able to provide accommodations during cold weather seasons and that, accordingly, they will not be able to provide accommodations over the balance of the spring, summer, and early derian. -In the past, the patient is live with family members. However, this is clearly not an option at the present time. The context is that the patient reportedly was in [facility] for approximately a year because of her making terroristic threats against the family. While it does seem clear that the family wants to help protect her, they are unable to safely provide correction. Given the patient's history of neglect of self-care, medication nonadherence, and possible cognitive deficits we are going to investigate structured residential programs as part of our discharge planning. Inventory Assets Strengths: Agrees to take medications. Basically cooperative with treatment. Pleasant on approach. Concerned family members. Needs: Resolution of psychotic features. Medication adherence. Stable living environment. Risk Factors Assessment Male: No : No Do You Have Access To A Gun?: No Health Problems: Yes Mental Health Diagnoses: Yes Substance Use Disorders: Yes (Patient makes reference to smoking marijuana, but does not clear if this is something that is done regularly or if it interferes anyway with her functioning.) Previous Attempt: No (The patient insists that she does not have a history of intentional self injury. 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.") : No Responsible for Young Children: No Employed: No Stable Relationships: No Supportive Family: Yes (The patient's family has filed a PFA against the patient due to her past behaviors, but it is clear that they remain protective over.) Good Rapport with Provider: No Absence of Any Risk Factors Above: No Interval History Identifying Information ANDREW CYR is a 63-year-old F who has a history of schizoaffective disorder, bipolar type and was admitted on 08/03/19 20:47 on a 302 involuntary commitment after her grandson reported that she had told him that she had very recently threatened to get a gun and shoot herself. Chief Complaint "Good". Review of Systems Notes Attempted to review 10 systems, patient refused to participate. Sleep Information Total Hours of Sleep: 4.75 Sleep Comments: pt appeared to be asleep @0130 and thereafter. pt on q-15 minute checks Meal Information Percent Meal Consumed - Breakfast: 100 Percent Meal Consumed - Lunch: 100 Percent Meal Consumed - Dinner: 100 Subjective Subjective Patient was seen & assessed and interval progress reviewed with nursing and social work. Staff report she is not attending groups, but is showering, eating and taking medication. She continues to refuse to sign any ROIs, and at times gets irritable with staff. Sleep is suboptimal, but she is eating well, and bathing independently. Today she was seen with seismic interpreter #[id number]. The patient reports mood, sleep, and appetite are all "good." She at one point told the diplomatic interpreter she could not hear her, although the audio was good and she appeared to be able to hear her well throughout the rest of the assessment. She at times mumbled incoherently under her breath, while the diplomatic interpreter was trying to talk to her. She said that someone is picking her up today and she is leaving, then she says she does not know who is picking her up or where she is going. She claims she has a place to live, but then says she does not know anything else about it when asked for additional information. She has she has not talked to anyone since she got to the hospital because she does not have any of their phone numbers, but would like us to contact Joseline, her daughter, and her grandson Oliverio. After much discussion and review of the INO, she signed the release to allow us to speak with Oliverio, but would not sign any other releases. Although she had indicated she wanted outpatient medical treatment, when encouraged to sign a release for [facility] so that this could be arranged, she said no. When asked to explain why, she said "I'm not interested in what that paper says." Repeatedly attempted to explain the release, and she repeated that she is "not interested." She said she is in the hospital because of a form she could not read, and had to call an unknown person "as soon as I can get out of there." She continues to states she does not need treatment or help with housing or services, and believes that she owns a home in [place], although does not know where it is. She references buying it with her "business applications specialist," but later says this person is her brother and owns a local restaurant. She attended her hearing and talked softly under her breath throughout. She testified that she didn't stay at the hotel because "they were making me pay." She then said they weren't making her pay, "but hotels do that." She did not respond when asked if [facility] [employer] [facility] was paying for her hotel room, as reported. She said she "bought a tuul apartment right [place] to [place], and was going to get a contreras, but once I got there found out they probably sold it, and once I got there it was late, probably 11pm, and I was very tired so put my medicine on the table and slept, it wasn't raining, I went back to talk to them." Reviewed ROIs with patient (requested her permission to talk to her [facility] Lizzy, get records from [facility], and her grandson Oliverio or any other family member she'd like to involve), spent considerable amount of time explaining this to her, and she refused to sign them saying she didn't want to sign any forms, but then wanted us to talk to her family. She ultimately agreed to sign the INO for her grandson Oliverio, who was also the 302 petitioner. Spoke to [facility] Lizzy along with hospital social scientist after the 303 hearing. Patient was discharged from prison with 30 day supply of meds, plan to stay at hotel paid for by [facility] [employer], and the [facility] was going to assist with finding housing and outpatient care. She had been accepted at a correction in [place] but refused to go. She was not set up with any outpatient treatment when she left prison. Lizzy had been talking with her daily while she was at the [facility], and she appeared paranoid, would not answer the door. She only has the hotel through 08/13 and they did not have anywhere identified for her to go after that. She believes she has a townhome but per family that is not true. Lizzy states the patient's grandson told her there is a current PFA that includes him, his mother and father. The [facility] can offer assistance with [facility] (they were willing to assist her while she was in prison but she refused), [facility], [facility] or [facility], and case management. Lizzy said she would have to agree to these things, but she has never been willing to do so. She did not know if the patient had ever been on a 304 IOC, but was in agreement that she may benefit from one. Physical Exam Psychiatric Orientation: alert and cooperative Apperance: appropriately dressed Overweight, dressed in street clothes, walking in the hoang and talking out loud although no one else is around. Has a pair of disposable underwear tied around her head like a headband. Eye Contact: + fair eye contact Motor Behavior: steady gait and station and no abnormal motor movements Able to sit through interview and hearing without fidgeting/agitation. No tremor/restlessness. Speech: normal rate/rhythm/volume of speech speaks Turkish. Soft and mumbles incoherently at times. Talks to herself throughout the 303 proceeding. Affect: + mood not congruent with affect Odd affect, laughing inappropriately. Mildly irritable at times. "good." Thought Process: + tangential thought process; + thought process not clear or coherent Answers some questions appropriately, other times responds with unrelated information. Most answers are vague and have to ask for clarification. Thought Content: + paranoid and + delusions Suicidal Thoughts: denies suicidal thoughts Homicidal Thoughts: denies homicidal thoughts Hallucinations: + auditory hallucinations and + visual hallucinations Patient denies hallucinations but appears to be responding to unseen others, talking out loud and gesturing when no one is around. Cognition: + recent memory not intact and + attention not intact Insight: + severely impaired insight Judgement: + severely impaired judgement Vital Signs (Past 24 Hours) Last Vital Signs Temp 36.8 C 08/08/19 06:56 Pulse 71 08/08/19 06:57 Resp 18 08/08/19 06:56 BP 133/77 08/08/19 06:57 Pulse Ox 95 08/03/19 21:25 Results & Data ([facility]) Current Inpatient Medications Current Inpatient Medications: Current Inpatient Medications Acetaminophen (Tylenol) 650 mg PO Q4H PRN PRN Reason: Headache or Minor Fever Stop: 09/02/19 20:46 Al Hydrox/Mg Hydrox/Simethicone (Maalox) 30 ml PO Q4H PRN PRN Reason: GI Upset Stop: 09/02/19 20:46 Bismuth Subsalicylate (Kaopectate) 15 ml PO PRN PRN PRN Reason: Loose Stool Stop: 09/02/19 20:46 Diphenhydramine HCl (Benadryl Capsule) 50 mg PO BID [facility] Stop: 09/03/19 10:59 Last Admin: 08/08/19 07:45 Dose: 50 mg Documented by: Hydroxyzine HCl (Vistaril) 50 mg PO HSZ PRN PRN Reason: Insomnia Stop: 09/02/19 20:46 Hydroxyzine HCl (Vistaril) 25 mg PO Q4H PRN PRN Reason: Anxiety Stop: 09/02/19 20:46 Levothyroxine Sodium (Synthroid) 75 mcg PO DAILYBB [facility] Stop: 09/04/19 07:59 Last Admin: 08/08/19 07:45 Dose: 75 mcg Documented by: [place] Carbonate ([place] Carbonate) 300 mg PO BID [facility] Stop: 09/02/19 21:44 Last Admin: 08/08/19 07:45 Dose: 300 mg Documented by: Loratadine (Claritin) 10 mg PO QAM [facility] Stop: 09/03/19 10:59 Last Admin: 08/08/19 07:45 Dose: 10 mg Documented by: Magnesium Hydroxide (Milk Of Magnesia) 30 ml PO DAILY PRN PRN Reason: Constipation Stop: 09/02/19 20:46 Miscellaneous (Remove Nicoderm Patch) 1 ea N/A DAILY@0859 [facility] Stop: 09/03/19 08:58 Last Admin: 08/08/19 07:46 Dose: Not Given Documented by: Nicotine (Nicoderm Cq) 7 mg TD [facility] Stop: 09/03/19 08:59 Last Admin: 08/08/19 07:46 Dose: Not Given Documented by: Pantoprazole Sodium (Protonix) 40 mg PO [facility] Stop: 09/03/19 21:59 Last Admin: 08/07/19 21:10 Dose: 40 mg Documented by: Risperidone (Risperdal M) 4 mg PO [facility] Stop: 09/03/19 21:59 Last Admin: 08/07/19 21:10 Dose: 4 mg Documented by: Risperidone (Risperdal) 2 mg PO QAM [facility] Stop: 09/06/19 08:59 Last Admin: 08/08/19 07:46 Dose: 2 mg Documented by: Simethicone (Mylicon) 80 mg PO TID PRN PRN Reason: Gas or Constipation Stop: 09/03/19 13:59 Simvastatin (Zocor) 10 mg PO HS [facility] Stop: 09/03/19 21:59 Last Admin: 08/07/19 21:10 Dose: 10 mg Documented by: Sodium Chloride (Nolan Nasal) 1 - 2 sprays NA PRN PRN PRN Reason: Nasal Dryness/Congestion Stop: 09/02/19 20:46 Mental Health & Subst Abuse Tx Movie Operator Name of Movie Operator: Lizzy March (1) Psychosis Psychosis type: unspecified psychosis type Qualified Code(s): F29 - Unspecified psychosis not due to a substance or known physiological condition
[2019-08-08] MEDS: RISPERIDONE ODT 1MG PO SCH (21:14)
[2019-08-08] MEDS: PANTOprazole 40 MG TAB PO SCH (21:14)
[2019-08-08] MEDS: SIMVASTATIN 10 MG TAB PO SCH (21:14)
[2019-08-09] MEDS: LEVOTHYROXINE SODIUM 75 MCG TABLET PO SCH (08:54)
[2019-08-09] MEDS: LORATADINE 10 MG TAB PO SCH (08:54)
[2019-08-09] MEDS: risperiDONE 3 MG TABLET PO SCH (09:01)
[2019-08-09] MEDS: LITHIUM CARBONATE 300 MG TAB PO SCH ×2 (09:02→21:14)
[2019-08-09] MEDS: NICOTINE 7 MG/24 HR TDSY TD SCH (09:04)
--- NOTE | 2019-08-09 12:50 | Psychiatric Progress Note ---
Date of Service August 09, 2019 Impression / Recommendations Impression 63-year-old female from [place] who has a history of schizophrenia vs schizoaffective disorder (presumed diagnosis of schizoaffective disorder bipolar type) and was admitted after 2 ER visits in 1 week for psychosis and inability to care for herself. She presented on a 302 commitment following a petition by her grandson stating she told him that she was going to shoot herself with a gun and is homeless. She was imprisoned for approximately 1 year on charges of making terroristic threats, and was released 07/24, but was not taking medications and was homeless. She had been seen in the emergency room during the previous weekend and released after several days of stable behavior in the ER. [facility] [employer] was paying for a hotel room for her, but she left and was sleeping "on the streets" for at least several days, during which time overnight temperatures were below freezing. Reports from community providers are that she has been neglecting self-care, not attending to her personal needs, not taking her m edicines, and not eating. 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 She is demonstrating paranoia and responding to auditory and visual hallucinations. She is on a 303 as of 08/07. Inpatient treatment is medically necessary as she is severely mentally ill and unable to provide for her own basic needs as a result, and additionally threatened to kill herself as detailed in the 302 petition. (1) Noncompliance with medication regimen: 08/04/19 - The patient indicates that she has stopped taking her medicine because the names of the directions for the medications are in Sami and she cannot read them. She also indicates that she no longer has access to her medications and has not taken any for approximately 5 days. The patient also claims to not recall the names of any of her medications and reports that she does not have the conditions for which her known medications are clearly intended. She also seems not to be oriented to year, and memory deficits on testing suggests that there may be some cognitive impairment as well. -The patient's underlying psychiatric condition will be actively treated. It is hoped that with treatment we will be able to better assess whether the patient can independently manage medications, or if she will need active assistance in this regard when she returns to the community. -She has a history of favorably responding to risperidone. We will start the patient on risperidone M tabs at her reported outpatient recommended dose, and as tolerated we will talk to the patient about converting to a Depo form of risperidone, given her history of medication nonadherence. 08/04 -Has been compliant with lithium and Risperdal in the hospital -reviewed Li 0.2 on 08/03/1908/07 - Would benefit from CANTOR and will explore options once we know where she will get outpatient treatment. Barriers include finances, lack of insurance, homelessness, lack of supports, poor insight. (2) Psychosis: 08/04/19 -The patient has been admitted to the locked, secured behavioral health unit and has been placed in special observation room. She is also being monitored with close observations and every 15-minute direct observation. When more stable she will be actively encouraged to participate in individual, group, and activity therapies. We will also attempt to involve the family if the patient permits us to and if they agree. -Although she was given a diagnosis of schizophrenia in the emergency room, the record, and the patient's presentation, is more consistent with a diagnosis of schizoaffective disorder, bipolar type. She has a reported history of responding favorably to risperidone, and, in addition, she had been prescribed lithium carbonate prior to admission. The issue may be nonadherence with these medications, and the first plan is to restart them at risperidone 3 mg in the morning and 4 mg at bedtime (oral dissolving tablets to help assure adherence) and lithium carbonate 300 mg twice a day with a plan to check her lithium level next week. 08/04 -Interview was difficult again today due to apparent paranoia and lability of affect while utilizing hand braille transcriber services. Cannot rule out cognitive dysfunction in addition to psychosis. Appears she was not restarted on AM dose of risperdal yesterday. Will attempt to reconfirm prior home dose before restarting due to higher risk for SE at that dose and increased risk for EPS if titrated too quickly. We will continue to expand database as able. 08/05 -Affect remains odd and suspicious however she has not been overtly agitated or aggressive. -We will add 2 mg morning dose of Risperdal tomorrow working towards home dose of 3 mg in the morning and 4mg at bedtime -Ordered fasting glucose and lipids for a.m. for monitoring on atypical antipsychotic 08/06 -Patient remains psychotic, delusional, unable to come up with a reasonable discharge plan (today states she owns a house in [place] that she just bought, but wants the address and does not know where it is). She denies that her family has a PFA against her or that she has any legal problems. She is not a reliable historian, and we will reach out to her [facility] to try to get additional collateral information. -303 hearing scheduled for tomorrow, will request a discharge planning meeting with the [facility] afterwards. -Continue lithium and risperidone, and explore options for outpatient treatment/obtaining medications given her lack of resources. -Fasting labs reviewed for monitoring on an atypical antipsychotic; glucose 109, cholesterol 221, remainder within normal limits. 08/07 -303 hearing held and granted. Recommend 304 IOC given her history of treatment noncompliance, lack of insight, frequent hospitalizations, and severity of psychotic symptoms and erratic, unsafe behavior when acutely psychotic. -Request records from psychiatric treatment while incarcerated. Patient refused to sign INO for [facility] (where she was referred for outpatient treatment during her 2018 hospitalization here). -Get collateral information from family, as patient reports they were helping her to establish housing. She signed an INO for her grandson who was also the 302 petitioner. -Discharge planning meeting with [facility] Lizzy Katherin. Explore options for housing assistance and OP care (numerous barriers including language, lack of resources/income, citizenship, lack of insurance, poor insight and adherence). -Continue risperidone and increase to 3mg qam and 4mg hs. Explore options for CANTOR (will depend largely on where/how she will access OP care, as no insurance so will have to explore ways to get CANTOR covered). Check w/ [facility] re: ability to supply/administer CANTOR. -Continue lithium and check trough level tomorrow. 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 This accommodation was provided through a local benevolent organization known as [facility]." However, this organization has notified us today that they were only able to provide accommodations during cold weather seasons and that, accordingly, they will not be able to provide accommodations over the balance of the spring, summer, and early derian. -In the past, the patient is live with family members. However, this is clearly not an option at the present time. The context is that the patient reportedly was in snf for approximately a year because of her making terroristic threats against the family. While it does seem clear that the family wants to help protect her, they are unable to safely provide group home. Given the patient's history of neglect of self-care, medication nonadherence, and possible cognitive deficits we are going to investigate structured residential programs as part of our discharge planning. Inventory Assets Strengths: Agrees to take medications. Basically cooperative with treatment. Pleasant on approach. Concerned family members. Needs: Resolution of psychotic features. Medication adherence. Stable living environment. Risk Factors Assessment Male: No : No Do You Have Access To A Gun?: No Health Problems: Yes Mental Health Diagnoses: Yes Substance Use Disorders: Yes (Patient makes reference to smoking marijuana, but does not clear if this is something that is done regularly or if it interferes anyway with her functioning.) Previous Attempt: No (The patient insists that she does not have a history of intentional self injury. 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.") : No Responsible for Young Children: No Employed: No Stable Relationships: No Supportive Family: Yes (The patient's family has filed a PFA against the patient due to her past behaviors, but it is clear that they remain protective over.) Good Rapport with Provider: No Absence of Any Risk Factors Above: No Interval History Identifying Information ANDREW RUSINQUE is a 63-year-old F who has a history of schizoaffective disorder, bipolar type and was admitted on 08/03/19 20:47 on a 302 involuntary commitment after her grandson reported that she had told him that she had very recently threatened to get a gun and shoot herself. 303 granted on 08/08/2019. Chief Complaint "I'm fine." Review of Systems Notes Constitutional: denied Cardiovascular: denied Respiratory: denied Gastrointestinal: denied Neurological: denied Psychiatric: denies symptoms other than stated above Total of at least 10 systems reviewed, pertinent positives as above and in HPI. Sleep Information Total Hours of Sleep: 8.25 Sleep Comments: pt appeared to sleep 1.25 hrs during evening shift. pt on q-15 minute checks Meal Information Percent Meal Consumed - Breakfast: 100 Percent Meal Consumed - Lunch: 100 Percent Meal Consumed - Dinner: 100 Subjective Subjective Patient was seen & assessed and interval progress reviewed with treatment team. Staff report they continue to observe the patient responding to internal stimuli. Pt did shower independently and was cooperative with blood work this morning. Pt has yet to sign releases to allow us to communicate with supports. [place] level drawn today - subtherapeutic at 0.4 today. Pt was seen today to assess progress since admission. Encounter occurred with unit staff of social media marketing specialist zaire Quijano PA-C and Susan Austin PA-C. Blending Operator device was utilized to communicate with patient in [place] - (Breonna - #[id number]). Pt did state that she feels "fine." Encounter began by offering patient [place] ROIs to sign for the [facility] and for [facility]. When asked if she would sign the ROIs, she stated "depends on what it says." Specifically when talking about the snf, she states "I have already forgotten all about that. I'm innocent." When we were discussing medications and patient was asked about side effects, she states "no, I'm fine." Pt was informed that her lithium level was low. She did not offer a translatable response to this comment. She was informed that our recommendation would be to increase the dose. When asked what we could do to best help the patient, she states "everything is fine." Unfortunately, the patient was not able to respond to comments in a loud enough volume to be accurately translated. Call was discontinued as the conversation was unable to be translated effectively. Pt denied other needs at this time. Physical Exam Psychiatric Orientation: alert and + guarded Apperance: appropriately dressed, appropriately groomed and appeared stated age Eye Contact: + fair eye contact Motor Behavior: no abnormal motor movements Speech: + abnormal rate/rhythm/volume of speech (mumbling, barely audible at times) Affect: + blunted affect and + labile affect (observed at various times to be laughing, tearful, or pacing) Mood: no depressed mood ("Fine") Thought Process: + tangential thought process; + thought process not linear or logical and + thought process not clear or coherent Thought Content: + paranoid and + delusions Hallucinations: pt denies; however, appears to be responding to internal stimuli Cognition: + recent memory not intact and + attention not intact Insight: + severely impaired insight Judgement: + severely impaired judgement Vital Signs (Past 24 Hours) Last Vital Signs Temp 37.3 C 08/09/19 06:49 Pulse 88 08/09/19 06:50 Resp 18 08/09/19 06:49 BP 127/85 08/09/19 06:50 Pulse Ox 95 08/03/19 21:25 Results & Data ([facility]) Laboratory Results Laboratory Results - last 24 hr 08/09/19 08:01 [place] 0.4 L Current Inpatient Medications Current Inpatient Medications: Current Inpatient Medications Acetaminophen (Tylenol) 650 mg PO Q4H PRN PRN Reason: Headache or Minor Fever Stop: 09/02/19 20:46 Al Hydrox/Mg Hydrox/Simethicone (Maalox) 30 ml PO Q4H PRN PRN Reason: GI Upset Stop: 09/02/19 20:46 Bismuth Subsalicylate (Kaopectate) 15 ml PO PRN PRN PRN Reason: Loose Stool Stop: 09/02/19 20:46 Diphenhydramine HCl (Benadryl Capsule) 50 mg PO BID CLARISA Stop: 09/03/19 10:59 Last Admin: 08/09/19 09:02 Dose: 50 mg Documented by: Hydroxyzine HCl (Vistaril) 50 mg PO HSZ PRN PRN Reason: Insomnia Stop: 09/02/19 20:46 Hydroxyzine HCl (Vistaril) 25 mg PO Q4H PRN PRN Reason: Anxiety Stop: 09/02/19 20:46 Levothyroxine Sodium (Synthroid) 75 mcg PO DAILYBB [facility] Stop: 09/04/19 07:59 Last Admin: 08/09/19 08:54 Dose: 75 mcg Documented by: [place] Carbonate ([place] Carbonate) 300 mg PO BID [facility] Stop: 09/02/19 21:44 Last Admin: 08/09/19 09:02 Dose: 300 mg Documented by: Loratadine (Claritin) 10 mg PO QAM [facility] Stop: 09/03/19 10:59 Last Admin: 08/09/19 08:54 Dose: 10 mg Documented by: Magnesium Hydroxide (Milk Of Magnesia) 30 ml PO DAILY PRN PRN Reason: Constipation Stop: 09/02/19 20:46 Miscellaneous (Remove Nicoderm Patch) 1 ea N/A [id number] [facility] Stop: 09/03/19 08:58 Last Admin: 08/09/19 09:02 Dose: Not Given Documented by: Nicotine (Nicoderm Cq) 7 mg TD [facility] Stop: 09/03/19 08:59 Last Admin: 08/09/19 09:04 Dose: Not Given Documented by: Pantoprazole Sodium (Protonix) 40 mg PO [facility] Stop: 09/03/19 21:59 Last Admin: 08/08/19 21:14 Dose: 40 mg Documented by: Risperidone (Risperdal M) 4 mg PO [facility] Stop: 09/03/19 21:59 Last Admin: 08/08/19 21:14 Dose: 4 mg Documented by: Risperidone (Risperdal) 3 mg PO [facility] Stop: 09/08/19 08:59 Last Admin: 08/09/19 09:01 Dose: 3 mg Documented by: Simethicone (Mylicon) 80 mg PO TID PRN PRN Reason: Gas or Constipation Stop: 09/03/19 13:59 Simvastatin (Zocor) 10 mg PO [facility] Stop: 09/03/19 21:59 Last Admin: 08/08/19 21:14 Dose: 10 mg Documented by: Sodium Chloride ([place] Nasal) 1 - 2 sprays NA PRN PRN PRN Reason: Nasal Dryness/Congestion Stop: 09/02/19 20:46 Mental Health & Subst Abuse Tx Presser First Name of Presser First: Lizzy March (1) Psychosis Psychosis type: unspecified psychosis type Qualified Code(s): F29 - Unspecified psychosis not due to a substance or known physiological condition
[2019-08-09] MEDS: RISPERIDONE ODT 1MG PO SCH (21:14)
[2019-08-09] MEDS: SIMVASTATIN 10 MG TAB PO SCH (21:14)
[2019-08-09] MEDS: PANTOprazole 40 MG TAB PO SCH (21:14)
[2019-08-10] MEDS: LEVOTHYROXINE SODIUM 75 MCG TABLET PO SCH (09:04)
[2019-08-10] MEDS: LORATADINE 10 MG TAB PO SCH (09:05)
[2019-08-10] MEDS: NICOTINE 7 MG/24 HR TDSY TD SCH (09:07)
[2019-08-10] MEDS: risperiDONE 3 MG TABLET PO SCH (09:07)
[2019-08-10] MEDS: LITHIUM CARBONATE 300 MG TAB PO SCH ×2 (09:08→21:02)
--- NOTE | 2019-08-10 11:22 | Psychiatric Progress Note ---
Date of Service August 10, 2019 Impression / Recommendations Impression 63-year-old female from [place] who has a history of schizophrenia vs schizoaffective disorder (presumed diagnosis of schizoaffective disorder bipolar type) and was admitted after 2 ER visits in 1 week for psychosis and inability to care for herself. She presented on a 302 commitment following a petition by her grandson stating she told him that she was going to shoot herself with a gun and is homeless. She was imprisoned for approximately 1 year on charges of making terroristic threats, and was released 07/24, but was not taking medications and was homeless. She had been seen in the emergency room during the previous weekend and released after several days of stable behavior in the ER. [employer] was paying for a hotel room for her, but she left and was sleeping "on the streets" for at least several days, during which time overnight temperatures were below freezing. Reports from community providers are that she has been neglecting self-care, not attending to her personal needs, not taking her m edicines, and not eating. 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 She is demonstrating paranoia and responding to auditory and visual hallucinations. She is on a 303 as of 08/07. Inpatient treatment is medically necessary as she is severely mentally ill and unable to provide for her own basic needs as a result, and additionally threatened to kill herself as detailed in the 302 petition. (1) Noncompliance with medication regimen: 08/04/19 - The patient indicates that she has stopped taking her medicine because the names of the directions for the medications are in [place] and she cannot read them. She also indicates that she no longer has access to her medications and has not taken any for approximately 5 days. The patient also claims to not recall the names of any of her medications and reports that she does not have the conditions for which her known medications are clearly intended. She also seems not to be oriented to year, and memory deficits on testing suggests that there may be some cognitive impairment as well. -The patient's underlying psychiatric condition will be actively treated. It is hoped that with treatment we will be able to better assess whether the patient can independently manage medications, or if she will need active assistance in this regard when she returns to the community. -She has a history of favorably responding to risperidone. We will start the patient on risperidone M tabs at her reported outpatient recommended dose, and as tolerated we will talk to the patient about converting to a Depo form of risperidone, given her history of medication nonadherence. 08/04 -Has been compliant with lithium and Risperdal in the hospital -reviewed Li 0.2 on 08/03/1908/07 - Would benefit from CANTOR and will explore options once we know where she will get outpatient treatment. Barriers include finances, lack of insurance, homelessness, lack of supports, poor insight. (2) Psychosis: 08/04/19 -The patient has been admitted to the locked, secured behavioral health unit and has been placed in special observation room. She is also being monitored with close observations and every 15-minute direct observation. When more stable she will be actively encouraged to participate in individual, group, and activity therapies. We will also attempt to involve the family if the patient permits us to and if they agree. -Although she was given a diagnosis of schizophrenia in the emergency room, the record, and the patient's presentation, is more consistent with a diagnosis of schizoaffective disorder, bipolar type. She has a reported history of responding favorably to risperidone, and, in addition, she had been prescribed lithium carbonate prior to admission. The issue may be nonadherence with these medications, and the first plan is to restart them at risperidone 3 mg in the morning and 4 mg at bedtime (oral dissolving tablets to help assure adherence) and lithium carbonate 300 mg twice a day with a plan to check her lithium level next week. 08/04 -Interview was difficult again today due to apparent paranoia and lability of affect while utilizing mother helper services. Cannot rule out cognitive dysfunction in addition to psychosis. Appears she was not restarted on AM dose of risperdal yesterday. Will attempt to reconfirm prior home dose before restarting due to higher risk for SE at that dose and increased risk for EPS if titrated too quickly. We will continue to expand database as able. 08/05 -Affect remains odd and suspicious however she has not been overtly agitated or aggressive. -We will add 2 mg morning dose of Risperdal tomorrow working towards home dose of 3 mg in the morning and 4mg at bedtime -Ordered fasting glucose and lipids for a.m. for monitoring on atypical antipsychotic 08/06 -Patient remains psychotic, delusional, unable to come up with a reasonable discharge plan (today states she owns a house in [place] that she just bought, but wants the address and does not know where it is). She denies that her family has a PFA against her or that she has any legal problems. She is not a reliable historian, and we will reach out to her [facility] to try to get additional collateral information. -303 hearing scheduled for tomorrow, will request a discharge planning meeting with [facility] afterwards. -Continue lithium and risperidone, and explore options for outpatient treatment/obtaining medications given her lack of resources. -Fasting labs reviewed for monitoring on an atypical antipsychotic; glucose 109, cholesterol 221, remainder within normal limits. 08/07 -303 hearing held and granted. Recommend 304 IOC given her history of treatment noncompliance, lack of insight, frequent hospitalizations, and severity of psychotic symptoms and erratic, unsafe behavior when acutely psychotic. -Request records from psychiatric treatment while incarcerated. Patient refused to sign INO for [facility] (where she was referred for outpatient treatment during her 2018 hospitalization here). -Get collateral information from family, as patient reports they were helping her to establish housing. She signed an INO for her grandson who was also the 302 petitioner. -Discharge planning meeting with [facility] Lizzy Katherin. Explore options for housing assistance and OP care (numerous barriers including language, lack of resources/income, citizenship, lack of insurance, poor insight and adherence). -Continue risperidone and increase to 3mg qam and 4mg hs. Explore options for CANTOR (will depend largely on where/how she will access OP care, as no insurance so will have to explore ways to get CANTOR covered). Check w/ [facility] re: ability to supply/administer CANTOR. -Continue lithium and check trough level tomorrow. 08/08 - Pt declines feeling a need to adjust medications - Attempted to discuss subtherapeutic lithium level (0.4) - will offer patient 600mg tonight and continue the 300mg dose each morning - Limited ability to communicate with mother helper service today, as patient does not speak at a volume loud enough for mother helper to accurately translate despite many attempts to assistant wrestling coach patient - Awaiting additional communication from [facility] regarding CANTOR options available 08/09 -Mila Doce dose increased today to 450 mg twice daily; recheck trough level after 5 days (08/15/2019). -Change risperidone to paliperidone, with plan to transition to Invega Sustenna if it is effective and well-tolerated. Sustenna preferred over Risperdal Consta as it can be administered every 4 weeks instead of every 2. She already received her morning dose of risperidone, so will give 3 mg of paliperidone tonight, and 6 mg once daily starting tomorrow. -Patient has now signed releases for [facility] and [facility], so we will request records to clarify previous psychiatric treatment and response. (3) Homeless: 08/04/19 -Until recently, the patient reportedly had been living in a motel room and a "[employer]" motel in [place]. This accommodation was provided through a local [employer] organization known as "[employer]." However, this organiz ation has notified us today that they were only able to provide accommodations during cold weather seasons and that, accordingly, they will not be able to provide accommodations over the balance of the spring, summer, and early derian. -In the past, the patient is live with family members. However, this is clearly not an option at the present time. The context is that the patient reportedly was in [facility] for approximately a year because of her making terroristic threats against the family. While it does seem clear that the family wants to help protect her, they are unable to safely provide prison. Given the patient's history of neglect of self-care, medication nonadherence, and possible cognitive deficits we are going to investigate structured residential programs as part of our discharge planning. 08/09 -Outpatient employment case manager reports that 2 shelters with bilingual staff were identified prior to the patient leaving alf -[facility] and [facility] in [place]. She remains unwilling to explore housing options, expressing a delusion that she owns a home locally that she can return to. She also believes that her family is living in her home and preventing her from using it. Her outpatient employment case manager reports there is an active PFA against the patient from her family, which limits our ability to involve them in treatment. She also reports that the Department of [employer] and [employer] were both notified of the patient's illegal status in this country, but declined to deport her to [place]. Inventory Assets Strengths: Agrees to take medications. Basically cooperative with treatment. Pleasant on approach. Concerned family members. Needs: Resolution of psychotic features. Medication adherence. Stable living environment. Risk Factors Assessment Male: No : No Do You Have Access To A Gun?: No Health Problems: Yes Mental Health Diagnoses: Yes Substance Use Disorders: Yes (Patient makes reference to smoking marijuana, but does not clear if this is something that is done regularly or if it interferes anyway with her functioning.) Previous Attempt: No (The patient insists that she does not have a history of intentional self injury. 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.") : No Responsible for Young Children: No Employed: No Stable Relationships: No Supportive Family: Yes (The patient's family has filed a PFA against the patient due to her past behaviors, but it is clear that they remain protective over.) Good Rapport with Provider: No Absence of Any Risk Factors Above: No Interval History Identifying Information ANDREW CYR is a 63-year-old F who has a history of schizoaffective disorder, bipolar type and was admitted on 08/03/19 20:47 on a 302 involuntary commitment after her grandson reported that she had told him that she had very recently threatened to get a gun and shoot herself. 303 granted on 08/08/2019. Chief Complaint " Fine, thanks". Review of Systems Sleep Information Total Hours of Sleep: 6 Sleep Comments: pt appeared to sleep 1.25 hrs during evening shift. pt on q-15 minute checks Meal Information Percent Meal Consumed - Breakfast: 50 Percent Meal Consumed - Lunch: 100 Percent Meal Consumed - Dinner: 100 Subjective Subjective Patient was seen & assessed and interval progress reviewed with nursing and social work. Staff report she is declining all groups and activities, spends most of her time in her room, sometimes walks in the hallways, and does not spontaneously interact with others. She has periods of irritability, but is typically pleasant on interaction, cooperative, and taking her medication. Social work spoke with her outpatient employment case manager yesterday and obtained additional collateral information, which she got from the alf and the patient's family: [facility] from February 2018 - July 25, 2019 and was released due to being identified as "clinically stabilized" in the alf system and due to COVID. The PFA was originally obtained due to threats and acts of violence toward her family, inability to control herself, and her verbalization that she would use anything she could to try and harm the family. She had been living with her family prior to that, but was attempting to harm them due to her paranoia and delusions. Lizzy did confirm that as of 08/09/2019, there was an active PFA for gonna "entire family" until March 2021. While in alf, pt was "not stabilized", rolling on the floor naked, and not willing to take medication consistently. She was deemed incompetent and transferred to [facility] from 11/07 - 03/2019, and then returned to the [facility], where she was more stable, but continued to have delusions and auditory hallucinations. Her release from alf was sudden, but the counselors and manager of case management at the alf were able to identify 2 options for bilingual shelters ([facility] and in [place]), but the patient declined both options. Lizzy was assigned to work with the patient on 07/26. After repeated attempts to contact her, Lizzy received a report from police/CIT that the [facility], and was disoriented. A 302 petition was initiated and the patient was brought to the ED. After 70+ hours of being in the ED and no available inpatient placement, she was discharged. On 08/02, Lizzy received another CIT report indicating that the patient went to the [facility] again and stated she was going to kill herself. Her grandson was present and petitioned a 302. The [facility] is owned by the patient's son, and although she states he is her business office representative, this is not true. Her children do not speak [place], but can understand [place], and her grandson does speak [place]. The alf notified [employer] and [employer] security that she was in the country illegally, but they declined to intervene. On my assessment today, patient was seen with iPad disaster response director #[id number]. Several times during the interview, the disaster response director stated the patient was not making sense, and at other times she was unable to understand his questions, despite rephrasing them several times. She often answered with unrelated information. When asked how she is spending her time, she says "nothing." She describes mood is "good," and denies problems with sleep and appetite. She denies side effects to medications. She is not aware of the name of the medication that she is taking, or what it is for. She continues to deny that she has a mental illness, and is denying hallucinations. She insists that she owns a home in [place], although she does not know where it is. Attempted to clarify this further, and she became increasingly irritable with questioning. When it is reflected to her that her family, the alf, and all of those who know her and have been working with her are unaware that she owns a house, and that she has been described as homeless and living in a hotel recently, she says that she does have a house, but her family do not want to admit to that, because they are living there. She says that all of her belongings are at this house, but does not know where it is, other than "in the [place] She would not answer if she had ever been to the house, and replied with "what's your problem? I don't want to talk about the house anymore." She says that when she leaves the hospital, she plans to go visit her mother in [place]. She does not know where in [place] her mother lives, but says that her grandmother, nieces, and nephews will come and pick her up and take her to [place] for a visit. She denies that she has talked to anyone (friends or family) since arriving at the hospital, but insists "they are going to come get me here." She says she does not know if she has spoken to her employment case manager Lizzy since she got here, and is not even sure if she has ever met her. She denies any acute needs or questions about her treatment. Physical Exam Psychiatric Orientation: alert Oriented X 06/27 (stated the year was 2001, WednesdayAugust 10 she knew the town, state, and that she was in the hospital, but not the name or floor of the hospital. Apperance: appropriately dressed and appeared stated age Overweight, adequate hygiene and grooming Eye Contact: + fair eye contact Motor Behavior: steady gait and station Mild restlessness, pacing in her room at times prior to the interview, but able to sit calmly throughout the assessment Speaks in Syriac. Appears to understand very few [place] words. Often talks quietly, under her breath, and has to be asked to repeat her statements so the mother helper can hear her. Affect is mostly euthymic, at times laughing and smiling inappropriately, but easily irritated with certain lines of questioning "Fine." Thought Process: + tangential thought process and + incoherent thought process Disorganized, often answers with unrelated information, difficulty understanding and responding to questions appropriately Thought Content: + paranoid and + delusions (That she has a house, that her family are intentionally hiding it from her so that they can live there) Suicidal Thoughts: denies suicidal thoughts Homicidal Thoughts: denies homicidal thoughts Denies hallucinations, but has been observed responding to unseen others Cognition: + recent memory not intact, + remote memory not intact, + attention not intact and + language not intact Insight: + severely impaired insight Judgement: + severely impaired judgement Vital Signs (Past 24 Hours) Last Vital Signs Temp 36.8 C 08/10/19 06:20 Pulse 84 08/10/19 06:20 Resp 16 08/10/19 06:20 BP 126/68 08/10/19 06:20 Pulse Ox 95 08/03/19 21:25 Results & Data ([facility]) Current Inpatient Medications Current Inpatient Medications: Current Inpatient Medications Acetaminophen (Tylenol) 650 mg PO Q4H PRN PRN Reason: Headache or Minor Fever Stop: 09/02/19 20:46 Al Hydrox/Mg Hydrox/Simethicone (Maalox) 30 ml PO Q4H PRN PRN Reason: GI Upset Stop: 09/02/19 20:46 Bismuth Subsalicylate (Kaopectate) 15 ml PO PRN PRN PRN Reason: Loose Stool Stop: 09/02/19 20:46 Diphenhydramine HCl (Benadryl Capsule) 50 mg PO BID CLARISA Stop: 09/03/19 10:59 Last Admin: 08/10/19 09:05 Dose: 50 mg Documented by: Hydroxyzine HCl (Vistaril) 50 mg PO HSZ PRN PRN Reason: Insomnia Stop: 09/02/19 20:46 Hydroxyzine HCl (Vistaril) 25 mg PO Q4H PRN PRN Reason: Anxiety Stop: 09/02/19 20:46 Levothyroxine Sodium (Synthroid) 75 mcg PO DAILYBB [facility] Stop: 09/04/19 07:59 Last Admin: 08/10/19 09:04 Dose: 75 mcg Documented by: Mila Doce Carbonate (Mila Doce Carbonate) 450 mg PO BID [facility] Stop: 09/09/19 08:59 Last Admin: 08/10/19 09:08 Dose: 450 mg Documented by: Loratadine (Claritin) 10 mg PO QAM [facility] Stop: 09/03/19 10:59 Last Admin: 08/10/19 09:05 Dose: 10 mg Documented by: Magnesium Hydroxide (Milk Of Magnesia) 30 ml PO DAILY PRN PRN Reason: Constipation Stop: 09/02/19 20:46 Miscellaneous (Remove Nicoderm Patch) 1 ea N/A DAILY@59 [facility] Stop: 09/03/19 08:58 Last Admin: 08/10/19 09:04 Dose: Not Given Documented by: Nicotine (Nicoderm Cq) 7 mg TD [facility] Stop: 09/03/19 08:59 Last Admin: 08/10/19 09:07 Dose: Not Given Documented by: Pantoprazole Sodium (Protonix) 40 mg PO [facility] Stop: 09/03/19 21:59 Last Admin: 08/09/19 21:14 Dose: 40 mg Documented by: Risperidone (Risperdal M) 4 mg PO [facility] Stop: 09/03/19 21:59 Last Admin: 08/09/19 21:14 Dose: 4 mg Documented by: [facility] ([facility]dal) [facility] Stop: 09/08/19 08:59 Last Admin: 08/10/19 09:07 Dose: 3 mg Documented by: Simethicone (Mylicon) 80 mg PO TID PRN PRN Reason: Gas or Constipation Stop: 09/03/19 13:59 Simvastatin (Zocor) 10 mg PO [facility] Stop: 09/03/19 21:59 Last Admin: 08/09/19 21:14 Dose: 10 mg Documented by: Sodium Chloride (Lawrence Nasal) 1 - 2 sprays NA PRN PRN PRN Reason: Nasal Dryness/Congestion Stop: 09/02/19 20:46 Mental Health & Subst Abuse Tx Industrial Retrofit Designer Name of Industrial Retrofit Designer: Lzizy March (1) Psychosis Psychosis type: unspecified psychosis type Qualified Code(s): F29 - Unspecified psychosis not due to a substance or known physiological condition
[2019-08-10] MEDS ORDERED: PALIPERIDONE 3 MG TABCR PO ONE (20:00)
[2019-08-10] MEDS: PANTOprazole 40 MG TAB PO SCH (21:03)
[2019-08-10] MEDS: SIMVASTATIN 10 MG TAB PO SCH (21:03)
[2019-08-11] MEDS: LEVOTHYROXINE SODIUM 75 MCG TABLET PO SCH (08:09)
[2019-08-11] MEDS: LORATADINE 10 MG TAB PO SCH (08:43)
[2019-08-11] MEDS: PALIPERIDONE 3 MG TABCR PO SCH (08:43)
[2019-08-11] MEDS: NICOTINE 7 MG/24 HR TDSY TD SCH (08:44)
[2019-08-11] MEDS: LITHIUM CARBONATE 300 MG TAB PO SCH ×2 (08:44→20:55)
--- NOTE | 2019-08-11 09:07 | Psychiatric Progress Note ---
Date of Service August 11, 2019 Impression / Recommendations Impression 63-year-old female from [place] who has a history of schizophrenia vs schizoaffective disorder (presumed diagnosis of schizoaffective disorder bipolar type) and was admitted after 2 ER visits in 1 week for psychosis and inability to care for herself. She presented on a 302 commitment following a petition by her grandson stating she told him that she was going to shoot herself with a gun and is homeless. She was imprisoned for approximately 1 year on charges of making terroristic threats, and was released 07/24, but was not taking medications and was homeless. She had been seen in the emergency room during the previous weekend and released after several days of stable behavior in the ER. [employer] was paying for a hotel room for her, but she left and was sleeping "on the streets" for at least several days, during which time overnight temperatures were below freezing. Reports from community providers are that she has been neglecting self-care, not attending to her personal needs, not taking her m edicines, and not eating. 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 She is demonstrating paranoia and responding to auditory and visual hallucinations. She is on a 303 as of 08/07. Inpatient treatment is medically necessary as she is severely mentally ill and unable to provide for her own basic needs as a result, and additionally threatened to kill herself as detailed in the 302 petition. (1) Noncompliance with medication regimen: 08/04/19 - The patient indicates that she has stopped taking her medicine because the names of the directions for the medications are in Chinese and she cannot read them. She also indicates that she no longer has access to her medications and has not taken any for approximately 5 days. The patient also claims to not recall the names of any of her medications and reports that she does not have the conditions for which her known medications are clearly intended. She also seems not to be oriented to year, and memory deficits on testing suggests that there may be some cognitive impairment as well. -The patient's underlying psychiatric condition will be actively treated. It is hoped that with treatment we will be able to better assess whether the patient can independently manage medications, or if she will need active assistance in this regard when she returns to the community. -She has a history of favorably responding to risperidone. We will start the patient on risperidone M tabs at her reported outpatient recommended dose, and as tolerated we will talk to the patient about converting to a Depo form of risperidone, given her history of medication nonadherence. 08/04 -Has been compliant with lithium and Risperdal in the hospital -reviewed Li 0.2 on 08/03/1908/07 - Would benefit from CANTOR and will explore options once we know where she will get outpatient treatment. Barriers include finances, lack of insurance, homelessness, lack of supports, poor insight. (2) Psychosis: 08/04/19 -The patient has been admitted to the locked, secured behavioral health unit and has been placed in special observation room. She is also being monitored with close observations and every 15-minute direct observation. When more stable she will be actively encouraged to participate in individual, group, and activity therapies. We will also attempt to involve the family if the patient permits us to and if they agree. -Although she was given a diagnosis of schizophrenia in the emergency room, the record, and the patient's presentation, is more consistent with a diagnosis of schizoaffective disorder, bipolar type. She has a reported history of responding favorably to risperidone, and, in addition, she had been prescribed lithium carbonate prior to admission. The issue may be nonadherence with these medications, and the first plan is to restart them at risperidone 3 mg in the morning and 4 mg at bedtime (oral dissolving tablets to help assure adherence) and lithium carbonate 300 mg twice a day with a plan to check her lithium level next week. 08/04 -Interview was difficult again today due to apparent paranoia and lability of affect while utilizing front desk admin services. Cannot rule out cognitive dysfunction in addition to psychosis. Appears she was not restarted on AM dose of risperdal yesterday. Will attempt to reconfirm prior home dose before restarting due to higher risk for SE at that dose and increased risk for EPS if titrated too quickly. We will continue to expand database as able. 08/05 -Affect remains odd and suspicious however she has not been overtly agitated or aggressive. -We will add 2 mg morning dose of Risperdal tomorrow working towards home dose of 3 mg in the morning and 4mg at bedtime -Ordered fasting glucose and lipids for a.m. for monitoring on atypical antipsychotic 08/06 -Patient remains psychotic, delusional, unable to come up with a reasonable discharge plan (today states she owns a house in [place] that she just bought, but wants the address and does not know where it is). She denies that her family has a PFA against her or that she has any legal problems. She is not a reliable historian, and we will reach out to her [facility] to try to get additional collateral information. -303 hearing scheduled for tomorrow, will request a discharge planning meeting with the [id number] afterwards. -Continue lithium and risperidone, and explore options for outpatient treatment/obtaining medications given her lack of resources. -Fasting labs reviewed for monitoring on an atypical antipsychotic; glucose 109, cholesterol 221, remainder within normal limits. 08/07 -303 hearing held and granted. Recommend 304 IOC given her history of treatment noncompliance, lack of insight, frequent hospitalizations, and severity of psychotic symptoms and erratic, unsafe behavior when acutely psychotic. -Request records from psychiatric treatment while incarcerated. Patient refused to sign INO for [facility] (where she was referred for outpatient treatment during her 2018 hospitalization here). -Get collateral information from family, as patient reports they were helping her to establish housing. She signed an INO for her grandson who was also the 302 petitioner. -Discharge planning meeting with [facility] Lizzy Katherin. Explore options for housing assistance and OP care (numerous barriers including language, lack of resources/income, citizenship, lack of insurance, poor insight and adherence). -Continue risperidone and increase to 3mg qam and 4mg hs. Explore options for CANTOR (will depend largely on where/how she will access OP care, as no insurance so will have to explore ways to get CANTOR covered). Check w/ [facility] re: ability to supply/administer CANTOR. -Continue lithium and check trough level tomorrow. 08/08 - Pt declines feeling a need to adjust medications - Attempted to discuss subtherapeutic lithium level (0.4) - will offer patient 600mg tonight and continue the 300mg dose each morning - Limited ability to communicate with front desk admin service today, as patient does not speak at a volume loud enough for front desk admin to accurately translate despite many attempts to athletic coach patient - Awaiting additional communication from [facility] regarding CANTOR options available 08/09 -Mina dose increased today to 450 mg twice daily; recheck trough level after 5 days (08/15/2019). -Change risperidone to paliperidone, with plan to transition to Invega Sustenna if it is effective and well-tolerated. Sustenna preferred over Risperdal Consta as it can be administered every 4 weeks instead of every 2. She already received her morning dose of risperidone, so will give 3 mg of paliperidone tonight, and 6 mg once daily starting tomorrow. -Patient has now signed releases for [facility] and [facility], so we will request records to clarify previous psychiatric treatment and response. 08/10 - Continue lithium 450mg BID, lithium level scheduled for 08/15/2019 - Continue paliperidone 6mg qAM - ongoing attempts to coordinate with [facility] regarding CANTOR options. Patient's lack of Social Security Number is possibly a barrier to applying for patient assistance programs for medications. Could consider titration of paliperidone to 9mg daily if tolerated. - Meeting between our team, the [facility] and [facility] has been scheduled for 08/15 to discuss aftercare and discharge planning (3) Homeless: 08/04/19 -Until recently, the patient reportedly had been living in a motel room and a "[employer]" motel in [place]. This accommodation was provided through a local benevolent organization known as "[employer]." However, this organization has notified us today that they were only able to provide accommodations during cold weather seasons and that, accordingly, they will not be able to provide accommodations over the balance of the spring, summer, and early derian. -In the past, the patient is live with family members. However, this is clearly not an option at the present time. The context is that the patient reportedly was in fdc for approximately a year because of her making terroristic threats against the family. While it does seem clear that the family wants to help protect her, they are unable to safely provide alf. Given the patient's history of neglect of self-care, medication nonadherence, and possible cognitive deficits we are going to investigate structured residential programs as part of our discharge planning. 08/09 -Outpatient caseworker protective services reports that 2 shelters with bilingual staff were identified prior to the patient leaving residential -[facility] and [facility] [place]. She remains unwilling to explore housing options, expressing a delusion that she owns a home locally that she can return to. She also believes that her family is living in her home and preventing her from using it. Her outpatient caseworker protective services reports there is an active PFA against the patient from her family, which limits our ability to involve them in treatment. She also reports that the [employer] of [employer] and [facility] were both notified of the patient's illegal status in this country, but declined to deport her to [place]. 08/10 - Pt continues to verbalize anticipated discharge plans that cannot be confirmed and communication is limited by patient's refusal and PFAs against various family members. - Pt now stating that she is planning to live with her mother in [place] and that she will be picking her up on discharge - patient also admits that she has had no communication with her mother since her admission. Inventory Assets Strengths: Agrees to take medications. Basically cooperative with treatment. Pleasant on approach. Concerned family members. Needs: Resolution of psychotic features. Medication adherence. Stable living environment. Risk Factors Assessment Male: No : No Do You Have Access To A Gun?: No Health Problems: Yes Mental Health Diagnoses: Yes Substance Use Disorders: Yes (Patient makes reference to smoking marijuana, but does not clear if this is something that is done regularly or if it interferes anyway with her functioning.) Previous Attempt: No (The patient insists that she does not have a history of intentional self injury. 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.") : No Responsible for Young Children: No Employed: No Stable Relationships: No Supportive Family: Yes (The patient's family has filed a PFA against the patient due to her past behaviors, but it is clear that they remain protective over.) Good Rapport with Provider: No Absence of Any Risk Factors Above: No Interval History Identifying Information ANDREW CYR is a 63-year-old F who has a history of schizoaffective disorder, bipolar type and was admitted on 08/03/19 20:47 on a 302 involuntary commitment after her grandson reported that she had told him that she had very recently threatened to get a gun and shoot herself. 303 granted on 08/08/2019. Chief Complaint "I will be leaving today. I already have my discharge." Review of Systems Notes Pt does not verbalize any physical complaints at this time. Sleep Information Total Hours of Sleep: 6 Sleep Comments: pt appeared to sleep 1.25 hrs during evening shift. pt on q-15 minute checks Meal Information Percent Meal Consumed - Breakfast: 50 Percent Meal Consumed - Lunch: 100 Percent Meal Consumed - Dinner: 90 Subjective Subjective Patient was seen & assessed and interval progress reviewed with treatment team. Staff report the patient did sign ROIs for the [facility], [facility], and [facility]. She has been pleasant for the most part with staff, but is often observed to be responding to internal stimuli and is occasionally restless. Prior to our encounter, this provider observed the patient to be pacing and dancing around her room, laughing inappropriately, and talking out loud. Pt was seen today to assess progress since admission. [employer] front desk admin (Sudheer - #[id number]) was utilized to conduct visit - which included review of patient's treatment plan by our Recreational Therapist. Susan Austin PA-C was also present during encounter. During patient's treatment plan review, she was observed to be laughing inappropriately at times and often mumbling under her breath while the front desk admin or Recreational Therapist were speaking. When discussing the topic of suicidality, the patient reported "suicide? myself? no." Pt also verbalized "I will be leaving today. I already have my discharge." She refused to sign her treatment plan after this review. This provider continued to speak with the patient utilizing the front desk admin. She was asked where she would go if she were discharged soon, as we have no indication of a clear discharge plan being available. Pt stated "with my mother...in [place]." Pt was asked if she had had any contact with her mother during this hospitalization, to which she responded "no." This provider did attempt to make the patient aware that we could not discharge her without being able to speak with appropriate supports. She then began getting rather irritable and started yelling in Kyrgyz. Available translation included "I will do none of those things. I will not eat breakfast. The man who casts spells on people will wake up and I don't want to be here eating when he does." Pt did inform the front desk admin that she had already been in the hospital 5 day (likely her ED visit several days prior to representing to the hospital), and that the last things she knew she was " reading off a formula" and then she was in the hospital. As it was clear the patient was becoming more agitated, demonstrating inappropriate boundaries by standing very close to this provider and pointing her finger, the conversation was ended. Pt was asked if she had any current needs prior to ending the front desk admin-assisted conversation. Pt continued to speak in Kyrgyz after this conversation was ended, presumedly speaking about her plan to be discharged today. In Chinese, this provider stated we are attempting to work with her toward discharge, but that our plan was not for her release today. Pt then went into the bathroom and the conversation was ended. Physical Exam Psychiatric Orientation: alert and + guarded (uncooperative) Apperance: appropriately dressed, appropriately groomed and appeared stated age Eye Contact: good eye contact (eye contact mostly on front desk admin via iPad, which was appropriate) Motor Behavior: steady gait and station and no abnormal motor movements (but did become somewhat agitated toward end of discussion) Difficulty accurately assessing as patient does not speak Chinese well - electrical maintenance supervisor was utilized. He conversation appeared to be clear based on translation provided. Volume increased as level of agitation increased. Affect: + labile affect (laughing and smiling inappropriately, intermittently dancing, then angry) and + irritable affect Thought Process: + thought process not linear or logical and + thought process not clear or coherent Thought Content: + preoccupation (with discharge ) and + delusions (made statements about "the man who casts spells") Suicidal Thoughts: denies suicidal thoughts ("suicide? myself? no.") Hallucinations: + auditory hallucinations and + visual hallucinations Appears to frequently be responding to internal stimuli Cognition: + attention not intact Insight: + severely impaired insight Judgement: + severely impaired judgement Vital Signs (Past 24 Hours) Last Vital Signs Temp 36.3 C L 08/11/19 06:33 Pulse 76 08/11/19 06:33 Resp 20 08/11/19 06:33 BP 131/77 08/11/19 06:33 Pulse Ox 95 08/03/19 21:25 Results & Data ([facility]) Current Inpatient Medications Current Inpatient Medications: Current Inpatient Medications Acetaminophen (Tylenol) 650 mg PO Q4H PRN PRN Reason: Headache or Minor Fever Stop: 09/02/19 20:46 Al Hydrox/Mg Hydrox/Simethicone (Maalox) 30 ml PO Q4H PRN PRN Reason: GI Upset Stop: 09/02/19 20:46 Bismuth Subsalicylate (Kaopectate) 15 ml PO PRN PRN PRN Reason: Loose Stool Stop: 09/02/19 20:46 Diphenhydramine HCl (Benadryl Capsule) 50 mg PO BID [facility] Stop: 09/03/19 10:59 Last Admin: 08/11/19 08:43 Dose: 50 mg Documented by: Hydroxyzine HCl (Vistaril) 50 mg PO HSZ PRN PRN Reason: Insomnia Stop: 09/02/19 20:46 Hydroxyzine HCl (Vistaril) 25 mg PO Q4H PRN PRN Reason: Anxiety Stop: 09/02/19 20:46 Levothyroxine Sodium (Synthroid) 75 mcg PO DAILYBB [facility] Stop: 09/04/19 07:59 Last Admin: 08/11/19 08:09 Dose: 75 mcg Documented by: Mina Carbonate (Mina Carbonate) 450 mg PO BID [facility] Stop: 09/09/19 08:59 Last Admin: 08/11/19 08:44 Dose: 450 mg Documented by: Loratadine (Claritin) 10 mg PO QAM [facility] Stop: 09/03/19 10:59 Last Admin: 08/11/19 08:43 Dose: 10 mg Documented by: Magnesium Hydroxide (Milk Of Magnesia) 30 ml PO DAILY PRN PRN Reason: Constipation Stop: 09/02/19 20:46 Miscellaneous (Remove Nicoderm Patch) 1 ea N/A DAILY@858 [facility] Stop: 09/03/19 08:58 Last Admin: 08/11/19 08:44 Dose: Not Given Documented by: Nicotine (Nicoderm Cq) 7 mg TD QAM [facility] Stop: 09/03/19 08:59 Last Admin: 08/11/19 08:44 Dose: Not Given Documented by: Paliperidone (Invega) 6 mg PO QAM [facility] Stop: 09/10/19 08:59 Last Admin: 08/11/19 08:43 Dose: 6 mg Documented by: Pantoprazole Sodium (Protonix) 40 mg PO HS [facility] Stop: 09/03/19 21:59 Last Admin: 08/10/19 21:03 Dose: 40 mg Documented by: Simethicone (Mylicon) 80 mg PO TID PRN PRN Reason: Gas or Constipation Stop: 09/03/19 13:59 Simvastatin (Zocor) 10 mg PO HS [facility] Stop: 09/03/19 21:59 Last Admin: 08/10/19 21:03 Dose: 10 mg Documented by: Sodium Chloride ([place] Nasal) 1 - 2 sprays NA PRN PRN PRN Reason: Nasal Dryness/Congestion Stop: 09/02/19 20:46 Mental Health & Subst Abuse Tx Production Support Consultant Name of Production Support Consultant: Lizzy March (1) Psychosis Psychosis type: unspecified psychosis type Qualified Code(s): F29 - Unspecified psychosis not due to a substance or known physiological condition
--- NOTE | 2019-08-11 13:55 | Communication Note ---
Date of Service: August 11, 2019 Summary of Records from [facility] Admission Date - 11/17/2018 Discharge Date - 04/14/2019 Admitted from, and discharged back to, the [facility]. Psychiatric Discharge Medications: (this does not reflect changes made while at the [facility] after discharge from [facility]) 1. Cogentin - 1mg BID for antipsychotic-induced tremor 2. Benadryl - 25mg qAM and 50mg qHS 3. [place] - 300mg qAM and 600mg qHS 4. Risperdal - 4mg BID 5. Trazodone - 50mg qHS Forensic Summary: Pt was incarcerated at [facility] for terroristic threats and harassment. Early in patient's admission, there was observation of "restless and odd movements" which raised concern for Pelon's Disease which was presumed to be more likely related to a mood disorder as opposed to this consideration. Pt was started on risperidone and then lithium in order to allow for better control of christine. Pt was titrated to doses of 300mg and 600mg of lithium with level being 0.68 initially and 1.09 just prior ro discharge back to the correction. There was a brief trial of Thorazine which patient did not tolerate. Trazodone was also initiated for poor sleep. Regina did participate in a competency evaluation. Pt was found to be competent to stand trial when her "bipolar disorder was resolved to an adequate degree." Diagnosis: Bipolar I disorder, currently in early remission (with the use of medication)
[2019-08-11] MEDS: PANTOprazole 40 MG TAB PO SCH (20:56)
[2019-08-11] MEDS: SIMVASTATIN 10 MG TAB PO SCH (20:57)
[2019-08-12] MEDS: LEVOTHYROXINE SODIUM 75 MCG TABLET PO SCH (09:12)
[2019-08-12] MEDS: NICOTINE 7 MG/24 HR TDSY TD SCH (09:13)
[2019-08-12] MEDS: LORATADINE 10 MG TAB PO SCH (09:13)
[2019-08-12] MEDS: LITHIUM CARBONATE 300 MG TAB PO SCH ×2 (09:13→21:13)
[2019-08-12] MEDS: PALIPERIDONE 3 MG TABCR PO SCH (09:13)
--- NOTE | 2019-08-12 11:44 | Psychiatric Progress Note ---
Date of Service August 12, 2019 Impression / Recommendations Impression 63-year-old female from [place] who has a history of schizophrenia vs schizoaffective disorder (presumed diagnosis of schizoaffective disorder bipolar type) and was admitted after 2 ER visits in 1 week for psychosis and inability to care for herself. She presented on a 302 commitment following a petition by her grandson stating she told him that she was going to shoot herself with a gun and is homeless. She was imprisoned for approximately 1 year on charges of making terroristic threats, and was released 07/24, but was not taking medications and was homeless. She had been seen in the emergency room during the previous weekend and released after several days of stable behavior in the ER. [facility] [employer] [facility] was paying for a hotel room for her, but she left and was sleeping "on the streets" for at least several days, during which time overnight temperatures were below freezing. Reports from community providers are that she has been neglecting self-care, not attending to her personal needs, not taking her medicines, and not eating. 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 She is demonstrating paranoia and responding to auditory and visual hallucinations. She is on a 303 as of 08/07. Inpatient treatment is medically necessary as she is severely mentally ill and unable to provide for her own basic needs as a result, and additionally threatened to kill herself as detailed in the 302 petition. Reviewed--appears improved from admission. Plan: monitor for ongoing improvement on higher dose of Cucumber and Invega, will be converted to injectable if means to continue outpatient. Inventory Assets Strengths: Agrees to take medications. Basically cooperative with treatment. Pleasant on approach. Concerned family members. Needs: Resolution of psychotic features. Medication adherence. Stable living environment. Risk Factors Assessment Male: No : No Do You Have Access To A Gun?: No Health Problems: Yes Mental Health Diagnoses: Yes Substance Use Disorders: Yes (Patient makes reference to smoking marijuana, but does not clear if this is something that is done regularly or if it interferes anyway with her functioning.) Previous Attempt: No (The patient insists that she does not have a history of intentional self injury. 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.") : No Responsible for Young Children: No Employed: No Stable Relationships: No Supportive Family: Yes (The patient's family has filed a PFA against the patient due to her past behaviors, but it is clear that they remain protective over.) Good Rapport with Provider: No Absence of Any Risk Factors Above: No Interval History Identifying Information ANDREW CYR is a 63-year-old F who has a history of schizoaffective disorder, bipolar type and was admitted on 08/03/19 20:47 on a 302 involuntary commitment after her grandson reported that she had told him that she had very recently threatened to get a gun and shoot herself. 303 granted on 08/08/2019. Reviewed. Note: provider speaks Turkish so visit in Turkish, patient declined interpretation device. Chief Complaint "I have a house to smoke". Review of Systems Sleep Information Total Hours of Sleep: 5.75 Sleep Comments: awake at 0530 Meal Information Percent Meal Consumed - Breakfast: 100 Percent Meal Consumed - Lunch: 100 Percent Meal Consumed - Dinner: 100 Subjective Subjective Patient was seen & assessed and interval progress reviewed with nursing and social work. Patient states that she would like an injectable medication. Continues to refuse housing stating she has a place but can't name address/location. She does add that she knows medication helps her but only gets directions in Turkish, not Turkish so she gets confused. She asked for a nail trim and was given a file. She denies any thoughts to harm self or others and requested discharge. Reviewed that there is a discharge planning meeting Wednesday. Physical Exam Psychiatric Orientation: alert Apperance: appropriately groomed Eye Contact: good eye contact Motor Behavior: steady gait and station Speech: normal rate/rhythm/volume of speech Affect: euthymic affect Mood: + anxious mood Thought Process: + circumstantial thought process and + concrete thought process Thought Content: + delusions Suicidal Thoughts: denies suicidal thoughts Homicidal Thoughts: denies homicidal thoughts Hallucinations: no auditory hallucinations and no visual hallucinations Cognition: language grossly intact; + attention not intact Estimated Intelligence: consistent with education level Insight: + poor insight Judgement: + poor judgement Vital Signs (Past 24 Hours) Last Vital Signs Temp 36.8 C 08/12/19 06:43 Pulse 77 08/12/19 06:44 Resp 18 08/12/19 06:43 BP 124/82 08/12/19 06:44 Pulse Ox 95 08/03/19 21:25 Results & Data ([facility]) Current Inpatient Medications Current Inpatient Medications: Current Inpatient Medications Acetaminophen (Tylenol) 650 mg PO Q4H PRN PRN Reason: Headache or Minor Fever Stop: 09/02/19 20:46 Al Hydrox/Mg Hydrox/Simethicone (Maalox) 30 ml PO Q4H PRN PRN Reason: GI Upset Stop: 09/02/19 20:46 Bismuth Subsalicylate (Kaopectate) 15 ml PO PRN PRN PRN Reason: Loose Stool Stop: 09/02/19 20:46 Diphenhydramine HCl (Benadryl Capsule) 50 mg PO BID [facility] Stop: 09/03/19 10:59 Last Admin: 08/12/19 09:13 Dose: 50 mg Documented by: Hydroxyzine HCl (Vistaril) 50 mg PO HSZ PRN PRN Reason: Insomnia Stop: 09/02/19 20:46 Hydroxyzine HCl (Vistaril) 25 mg PO Q4H PRN PRN Reason: Anxiety Stop: 09/02/19 20:46 Levothyroxine Sodium (Synthroid) 75 mcg PO DAILYBB CLARISA Stop: 09/04/19 07:59 Last Admin: 08/12/19 09:12 Dose: 75 mcg Documented by: Cucumber Carbonate (Cucumber Carbonate) 450 mg PO BID CLARISA Stop: 09/09/19 08:59 Last Admin: 08/12/19 09:13 Dose: 450 mg Documented by: Loratadine (Claritin) 10 mg PO QAM CLARISA Stop: 09/03/19 10:59 Last Admin: 08/12/19 09:13 Dose: 10 mg Documented by: Magnesium Hydroxide (Milk Of Magnesia) 30 ml PO DAILY PRN PRN Reason: Constipation Stop: 09/02/19 20:46 Miscellaneous (Remove Nicoderm Patch) 1 ea N/A DAILY@[id number] [facility] Stop: 09/03/19 08:58 Last Admin: 08/12/19 09:12 Dose: Not Given Documented by: Nicotine (Nicoderm Cq) 7 mg TD [facility] Stop: 09/03/19 08:59 Last Admin: 08/12/19 09:13 Dose: Not Given Documented by: Paliperidone (Invega) [facility] [place] [place] Stop: 09/10/19 08:59 Last Admin: 08/12/19 09:13 Dose: 6 mg Documented by: Pantoprazole Sodium (Protonix) 40 mg PO [facility] Stop: 09/03/19 21:59 Last Admin: 08/11/19 20:56 Dose: 40 mg Documented by: Simethicone (Mylicon) 80 mg PO TID PRN PRN Reason: Gas or Constipation Stop: 09/03/19 13:59 Simvastatin (Zocor) 10 mg PO [facility] Stop: 09/03/19 21:59 Last Admin: 08/11/19 20:57 Dose: 10 mg Documented by: Sodium Chloride ([place] Nasal) 1 - 2 sprays NA PRN PRN PRN Reason: Nasal Dryness/Congestion Stop: 09/02/19 20:46 Mental Health & Subst Abuse Tx Marketing Services Specialist Name of Marketing Services Specialist: Lizzy March
[2019-08-12] MEDS: PANTOprazole 40 MG TAB PO SCH (21:14)
[2019-08-12] MEDS: SIMVASTATIN 10 MG TAB PO SCH (21:15)
[2019-08-13] MEDS: LEVOTHYROXINE SODIUM 75 MCG TABLET PO SCH (08:20)
[2019-08-13] MEDS: LITHIUM CARBONATE 300 MG TAB PO SCH ×2 (08:20→21:33)
[2019-08-13] MEDS: LORATADINE 10 MG TAB PO SCH (08:21)
[2019-08-13] MEDS: PALIPERIDONE 3 MG TABCR PO SCH (08:21)
[2019-08-13] MEDS: NICOTINE 7 MG/24 HR TDSY TD SCH (08:22)
--- NOTE | 2019-08-13 11:22 | Psychiatric Progress Note ---
Date of Service August 13, 2019 Impression / Recommendations Impression 63-year-old female from [place] who has a history of schizophrenia vs schizoaffective disorder (presumed diagnosis of schizoaffective disorder bipolar type) and was admitted after 2 ER visits in 1 week for psychosis and inability to care for herself. She presented on a 302 commitment following a petition by her grandson stating she told him that she was going to shoot herself with a gun and is homeless. She was imprisoned for approximately 1 year on charges of making terroristic threats, and was released 07/24, but was not taking medications and was homeless. She had been seen in the emergency room during the previous weekend and released after several days of stable behavior in the ER. [employer] was paying for a hotel room for her, but she left and was sleeping "on the streets" for at least several days, during which time overnight temperatures were below freezing. Reports from community providers are that she has been neglecting self-care, not attending to her personal needs, not taking her medicines, and not eating. 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 She is demonstrating paranoia and responding to auditory and visual hallucinations. She is on a 303 as of 08/07. Inpatient treatment is medically necessary as she is severely mentally ill and unable to provide for her own basic needs as a result, and additionally threatened to kill herself as detailed in the 302 petition. Reviewed--appears improved from admission. Plan: monitor for ongoing improvement on higher dose of [place] and Invega, will be converted to injectable if means to continue outpatient. (1) Noncompliance with medication regimen: 08/04/19 - The patient indicates that she has stopped taking her medicine because the names of the directions for the medications are in Salvadorean and she cannot read them. She also indicates that she no longer has access to her medications and has not taken any for approximately 5 days. The patient also claims to not recall the names of any of her medications and reports that she does not have the conditions for which her known medications are clearly intended. She also seems not to be oriented to year, and memory deficits on testing suggests that there may be some cognitive impairment as well. -The patient's underlying psychiatric condition will be actively treated. It is hoped that with treatment we will be able to better assess whether the patient can independently manage medications, or if she will need active assistance in this regard when she returns to the community. -She has a history of favorably responding to risperidone. We will start the patient on risperidone M tabs at her reported outpatient recommended dose, and as tolerated we will talk to the patient about converting to a Depo form of risperidone, given her history of medication nonadherence. 08/04 -Has been compliant with lithium and Risperdal in the hospital -reviewed Li 0.2 on 08/03/1908/07 - Would benefit from CANTOR and will explore options once we know where she will get outpatient treatment. Barriers include finances, lack of insurance, homelessness, lack of supports, poor insight. 08/12-reviewed. (2) Psychosis: 08/04/19 -The patient has been admitted to the locked, secured behavioral health unit and has been placed in special observation room. She is also being monitored with close observations and every 15-minute direct observation. When more stable she will be actively encouraged to participate in individual, group, and activity therapies. We will also attempt to involve the family if the patient permits us to and if they agree. -Although she was given a diagnosis of schizophrenia in the emergency room, the record, and the patient's presentation, is more consistent with a diagnosis of schizoaffective disorder, bipolar type. She has a reported history of responding favorably to risperidone, and, in addition, she had been prescribed lithium carbonate prior to admission. The issue may be nonadherence with these medications, and the first plan is to restart them at risperidone 3 mg in the morning and 4 mg at bedtime (oral dissolving tablets to help assure adherence) and lithium carbonate 300 mg twice a day with a plan to check her lithium level next week. 08/04 -Interview was difficult again today due to apparent paranoia and lability of affect while utilizing diplomatic interpreter/translator services. Cannot rule out cognitive dysfunction in addition to psychosis. Appears she was not restarted on AM dose of risperdal yesterday. Will attempt to reconfirm prior home dose before restarting due to higher risk for SE at that dose and increased risk for EPS if titrated too quickly. We will continue to expand database as able. 08/05 -Affect remains odd and suspicious however she has not been overtly agitated or aggressive. -We will add 2 mg morning dose of Risperdal tomorrow working towards home dose of 3 mg in the morning and 4mg at bedtime -Ordered fasting glucose and lipids for a.m. for monitoring on atypical antipsychotic 08/06 -Patient remains psychotic, delusional, unable to come up with a reasonable discharge plan (today states she owns a house in [place] that she just bought, but wants the address and does not know where it is). She denies that her family has a PFA against her or that she has any legal problems. She is not a reliable historian, and we will reach out to her BCM to try to get additional collateral information. -303 hearing scheduled for tomorrow, will request a discharge planning david luna with the count includes the [facility] afterwards. -Continue lithium and risperidone, and explore options for outpatient treatment/obtaining medications given her lack of resources. -Fasting labs reviewed for monitoring on an atypical antipsychotic; glucose 109, cholesterol 221, remainder within normal limits. 08/07 -303 hearing held and granted. Recommend 304 IOC given her history of treatment noncompliance, lack of insight, frequent hospitalizations, and severity of psychotic symptoms and erratic, unsafe behavior when acutely psychotic. -Request records from psychiatric treatment while incarcerated. Patient refused to sign INO for [facility] (where she was referred for outpatient treatment during her 2018 hospitalization here). -Get collateral information from family, as patient reports they were helping her to establish housing. She signed an INO for her grandson who was also the 302 petitioner. -Discharge planning meeting with [facility] Lizzy Pandey. Explore options for housing assistance and OP care (numerous barriers including language, lack of resources/income, citizenship, lack of insurance, poor insight and adherence). -Continue risperidone and increase to 3mg qam and 4mg hs. Explore options for CANTOR (will depend largely on where/how she will access OP care, as no insurance so will have to explore ways to get ACNTOR covered). Check w/ [facility] re: ability to supply/administer CANTOR. -Continue lithium and check trough level tomorrow. 08/08 - Pt declines feeling a need to adjust medications - Attempted to discuss subtherapeutic lithium level (0.4) - will offer patient 600mg tonight and continue the 300mg dose each morning - Limited ability to communicate with diplomatic interpreter/translator service today, as patient does not speak at a volume loud enough for diplomatic interpreter/translator to accurately translate despite many attempts to athletic coach patient - Awaiting additional communication from [facility] regarding CANTOR options available 08/09 -[place] dose increased today to 450 mg twice daily; recheck trough level after 5 days (08/15/2019). -Change risperidone to paliperidone, with plan to transition to Invega Sustenna if it is effective and well-tolerated. Sustenna preferred over Risperdal Consta as it can be administered every 4 weeks instead of every 2. She already received her morning dose of risperidone, so will give 3 mg of paliperidone tonight, and 6 mg once daily starting tomorrow. -Patient has now signed releases for [facility] and [facility], so we will request records to clarify previous psychiatric treatment and response. 08/10 - Continue lithium 450mg BID, lithium level scheduled for 08/15/2019 - Continue paliperidone 6mg qAM - ongoing attempts to coordinate with [facility] regarding CANTOR options. Patient's lack of Social Security Number is possibly a barrier to applying for patient assistance programs for medications. Could consider titration of paliperidone to 9mg daily if tolerated. - Meeting between our team, the BSU and [facility] has been scheduled for 08/15 to discuss aftercare and discharge planning 08/12 --Reviewed. Will give first of 2 Invega loading injections today, no clear aftercare plan in place so primary team can determine timing of/need for 2nd injection. At minimum she would have more coverage with medication when leaves the hospital. Ideally she would have discharge instructions/nuclear medicine officer instructions in Samoan. (3) Homeless: 08/04/19 -Until recently, the patient reportedly had been living in a motel room and a "[employer]" motel in [place]. This accommodation was provided through a local benevolent organization known as [facility]." However, this organization has notified us today that they were only able to provide accommodations during cold weather seasons and that, accordingly, they will not be able to provide accommodations over the balance of the spring, summer, and early derian. -In the past, the patient is live with family members. However, this is clearly not an option at the present time. The context is that the patient reportedly was in [facility] for approximately a year because of her making terroristic threats against the family. While it does seem clear that the family wants to help protect her, they are unable to safely provide [facility]. Given the patient's history of neglect of self-care, medication nonadherence, and possible cognitive deficits we are going to investigate structured residential programs as part of our discharge planning. 08/09 -Outpatient case supervisor reports that 2 shelters with bilingual staff were identified prior to the patient leaving [facility] and [facility] in [place]. She remains unwilling to explore housing options, expressing a delusion that she owns a home locally that she can return to. She also believes that her family is living in her home and preventing her from using it. Her outpatient case supervisor reports there is an active PFA against the patient from her family, which limits our ability to involve them in treatment. She also reports that the Department of [facility] and [facility] were both notified of the patient's illegal status in this country, but declined to deport her to [place]. 08/10 - Pt continues to verbalize anticipated discharge plans that cannot be confirmed and communication is limited by patient's refusal and PFAs against various family members. - Pt now stating that she is planning to live with her mother in [place] and that she will be picking her up on discharge - patient also admits that she has had no communication with her mother since her admission. 08/12 Reviewed. Inventory Assets Strengths: Agrees to take medications. Basically cooperative with treatment. Pleasant on approach. Concerned family members. Needs: Resolution of psychotic features. Medication adherence. Stable living environment. Risk Factors Assessment Male: No : No Do You Have Access To A Gun?: No Health Problems: Yes Mental Health Diagnoses: Yes Substance Use Disorders: Yes (Patient makes reference to smoking marijuana, but does not clear if this is something that is done regularly or if it interferes anyway with her functioning.) Previous Attempt: No (The patient insists that she does not have a history of intentional self injury. 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.") : No Responsible for Young Children: No Employed: No Stable Relationships: No Supportive Family: Yes (The patient's family has filed a PFA against the patient due to her past behaviors, but it is clear that they remain protective over.) Good Rapport with Provider: No Absence of Any Risk Factors Above: No Interval History Identifying Information ANDREW CYR is a 63-year-old F who has a history of schizoaffective disorder, bipolar type and was admitted on 08/03/19 20:47 on a 302 involuntary commitment after her grandson reported that she had told him that she had very recently threatened to get a gun and shoot herself. 303 granted on 08/08/2019. Reviewed. Note: provider speaks Samoan so visit in Samoan, patient declined interpretation device. Chief Complaint "I don't remember any of this". Review of Systems Sleep Information Total Hours of Sleep: 6.5 Sleep Comments: awake at 0530 Meal Information Percent Meal Consumed - Breakfast: 100 Percent Meal Consumed - Lunch: 100 Percent Meal Consumed - Dinner: 100 Subjective Subjective Patient was seen & assessed and interval progress reviewed with nursing and social work. No issues overnight though seems a bit more restless/pacing. No akathisia. Patient reports it's because she is ready to be discharged and excited to see me/asked for shot. Reviewed meeting of BSU and need for aftercare plan and living situation. She denies that she'll return to [facility], keeps insisting she has an apartment but doesn't have the address. States she doesn't remember calling her grandson and making suicidal statements. Denies medication related side effects. Physical Exam Psychiatric Orientation: alert Apperance: appropriately dressed and appropriately groomed Eye Contact: + fair eye contact Motor Behavior: steady gait and station Speech: normal rate/rhythm/volume of speech Affect: euthymic affect Mood: + anxious mood Thought Process: + concrete thought process Thought Content: no delusions Suicidal Thoughts: denies suicidal thoughts Homicidal Thoughts: denies homicidal thoughts Hallucinations: no auditory hallucinations and no visual hallucinations Insight: + poor insight Judgement: + poor judgement Vital Signs (Past 24 Hours) Last Vital Signs Temp 36.6 C 08/13/19 06:50 Pulse 73 08/13/19 06:50 Resp 18 08/13/19 06:50 BP 128/72 08/13/19 06:50 Pulse Ox 95 08/03/19 21:25 Results & Data ([facility]) Current Inpatient Medications Current Inpatient Medications: Current Inpatient Medications Acetaminophen (Tylenol) 650 mg PO Q4H PRN PRN Reason: Headache or Minor Fever Stop: 09/02/19 20:46 Al Hydrox/Mg Hydrox/Simethicone (Maalox) 30 ml PO Q4H PRN PRN Reason: GI Upset Stop: 09/02/19 20:46 Bismuth Subsalicylate (Kaopectate) 15 ml PO PRN PRN PRN Reason: Loose Stool Stop: 09/02/19 20:46 Diphenhydramine HCl (Benadryl Capsule) 50 mg PO BID [facility] Stop: 09/03/19 10:59 Last Admin: 08/13/19 08:21 Dose: 50 mg Documented by: Hydroxyzine HCl (Vistaril) 50 mg PO HSZ PRN PRN Reason: Insomnia Stop: 09/02/19 20:46 Hydroxyzine HCl (Vistaril) 25 mg PO Q4H PRN PRN Reason: Anxiety Stop: 09/02/19 20:46 Levothyroxine Sodium (Synthroid) 75 mcg PO DAILYBB [facility] Stop: 09/04/19 07:59 Last Admin: 08/13/19 08:20 Dose: 75 mcg Documented by: [place] Carbonate ([place] Carbonate) 450 mg PO BID [facility] Stop: 09/09/19 08:59 Last Admin: 08/13/19 08:20 Dose: 450 mg Documented by: Loratadine (Claritin) 10 mg PO QAM [facility] Stop: 09/03/19 10:59 Last Admin: 08/13/19 08:21 Dose: 10 mg Documented by: Magnesium Hydroxide (Milk Of Magnesia) 30 ml PO DAILY PRN PRN Reason: Constipation Stop: 09/02/19 20:46 Miscellaneous (Remove Nicoderm Patch) 1 ea N/A DAILY@59 [facility] Stop: 09/03/19 08:58 Last Admin: 08/13/19 08:22 Dose: Not Given Documented by: Nicotine (Nicoderm Cq) 7 mg TD QAM [facility] Stop: 09/03/19 08:59 Last Admin: 08/13/19 08:22 Dose: Not Given Documented by: Paliperidone (Invega) 6 mg PO QAM [facility] Stop: 09/10/19 08:59 Last Admin: 08/13/19 08:21 Dose: 6 mg Documented by: Paliperidone Palmitate (Invega Sustenna) 234 mg IM ONE ONE Stop: 08/13/19 11:18 Pantoprazole Sodium (Protonix) 40 mg PO HS [facility] Stop: 09/03/19 21:59 Last Admin: 08/12/19 21:14 Dose: 40 mg Documented by: Simethicone (Mylicon) 80 mg PO TID PRN PRN Reason: Gas or Constipation Stop: 09/03/19 13:59 Simvastatin (Zocor) 10 mg PO [facility] Stop: 09/03/19 21:59 Last Admin: 08/12/19 21:15 Dose: 10 mg Documented by: Sodium Chloride ([place] Nasal) 1 - 2 sprays NA PRN PRN PRN Reason: Nasal Dryness/Congestion Stop: 09/02/19 20:46 Mental Health & Subst Abuse Tx Replanting Machine Crew Name of Replanting Machine Crew: [facility] Service [facility] Phone Number for Replanting Machine Crew: [phone] Post Discharge Appointments Contact Information Discharge Phone Number: Unknown Discharge Address: No known address (1) Psychosis Psychosis type: unspecified psychosis type Qualified Code(s): F29 - Unspecified psychosis not due to a substance or known physiological condition
[2019-08-13] MEDS ORDERED: PALIPERIDONE PALMITATE 234 MG/1.5 ML SYR IM ONE (11:30)
[2019-08-13] MEDS: PANTOprazole 40 MG TAB PO SCH (21:36)
[2019-08-13] MEDS: SIMVASTATIN 10 MG TAB PO SCH (21:36)
[2019-08-14] MEDS: LEVOTHYROXINE SODIUM 75 MCG TABLET PO SCH (07:40)
[2019-08-14] MEDS: LORATADINE 10 MG TAB PO SCH (07:41)
[2019-08-14] MEDS: PALIPERIDONE 3 MG TABCR PO SCH (07:41)
[2019-08-14] MEDS: LITHIUM CARBONATE 300 MG TAB PO SCH ×2 (07:42→21:18)
[2019-08-14] MEDS: NICOTINE 7 MG/24 HR TDSY TD SCH (07:43)
--- NOTE | 2019-08-14 13:16 | Psychiatric Progress Note ---
Date of Service August 14, 2019 Impression / Recommendations Impression 63-year-old female from [place] who has a history of schizophrenia vs schizoaffective disorder (presumed diagnosis of schizoaffective disorder bipolar type) and was admitted after 2 ER visits in 1 week for psychosis and inability to care for herself. She presented on a 302 commitment following a petition by her grandson stating she told him that she was going to shoot herself with a gun and is homeless. She was imprisoned for approximately 1 year on charges of making terroristic threats, and was released 07/24, but was not taking medications and was homeless. She had been seen in the emergency room during the previous weekend and released after several days of stable behavior in the ER. [facility] [employer] was paying for a hotel room for her, but she left and was sleeping "on the streets" for at least several days, during which time overnight temperatures were below freezing. Reports from community providers are that she has been neglecting self-care, not attending to her personal needs, not taking her medicines, and not eating. 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 She is demonstrating paranoia and responding to auditory and visual hallucinations. She is on a 303 as of 08/07. Inpatient treatment is medically necessary as she is severely mentally ill and unable to provide for her own basic needs as a result, and additionally threatened to kill herself as detailed in the 302 petition. Received first dose of Invega sustenna on 08/12. Currently patient seems more restless, not accepting of need for discharge planning and given her history of incarceration I believe this is the cause rather than worsening bipolar. Will monitor. Explained to patient court order (commitment) at this time and need for county meeting. Encouraged her to consider assistance with relocation to a city with more anguillan speaking people, like [place] or previous alf offered. Plan: lithium level in am, states she won't take PO meds after discharge. Inventory Assets Strengths: Agrees to take medications. Basically cooperative with treatment. Pleasant on approach. Concerned family members. Needs: Resolution of psychotic features. Medication adherence. Stable living environment. Risk Factors Assessment Male: No : No Do You Have Access To A Gun?: No Health Problems: Yes Mental Health Diagnoses: Yes Substance Use Disorders: Yes (Patient makes reference to smoking marijuana, but does not clear if this is something that is done regularly or if it interferes anyway with her functioning.) Previous Attempt: No (The patient insists that she does not have a history of intentional self injury. 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.") : No Responsible for Young Children: No Employed: No Stable Relationships: No Supportive Family: Yes (The patient's family has filed a PFA against the patient due to her past behaviors, but it is clear that they remain protective over.) Good Rapport with Provider: No Absence of Any Risk Factors Above: No Interval History Identifying Information ANDREW CYR is a 63-year-old F who has a history of schizoaffective disorder, bipolar type and was admitted on 08/03/19 20:47 on a 302 involuntary commitment after her grandson reported that she had told him that she had very recently threatened to get a gun and shoot herself. 303 granted on 08/08/2019. Reviewed. Note: provider speaks Tajik so visit in Tajik, patient declined interpretation device. Chief Complaint "I want to leave today doctor, please, I have stuff". Review of Systems Sleep Information Total Hours of Sleep: 5.5 Sleep Comments: awake at 0530-paced some in the hallway-made no eye contact with staff Meal Information Percent Meal Consumed - Breakfast: 100 Percent Meal Consumed - Lunch: 100 Percent Meal Consumed - Dinner: 100 Subjective Subjective Patient was seen & assessed and interval progress reviewed with nursing. patient has been pacing in her room more and talking to self. I listened to patient prior to introducing myself to understand what she was saying and she was essentially reviewing her stay that she took meds and shot and didn't understand why couldn't leave and if tried the police would likely come although repeating it in a way it was having a conversation with someone else. when I asked her who talking to she said the library. When became upset when couldn't be discharged she appeared to respond to internal stimuli and told me she was talking to her daughter who is on vacation in [place]. Physical Exam Psychiatric Orientation: alert Apperance: appropriately dressed and appropriately groomed Eye Contact: + fair eye contact Motor Behavior: steady gait and station Speech: normal rate/rhythm/volume of speech (hyperverbal) Affect: + depressed affect (solely around discharge) Mood: + anxious mood Thought Process: + tangential thought process Thought Content: + delusions (that she has a home) Suicidal Thoughts: denies suicidal thoughts Homicidal Thoughts: denies homicidal thoughts Hallucinations: no auditory hallucinations (though appears to be responding to stimuli though could also be cultural) and no visual hallucinations Cognition: + attention not intact Estimated Intelligence: consistent with education level Insight: + poor insight Judgement: + poor judgement Vital Signs (Past 24 Hours) Last Vital Signs Temp 36.6 C 08/14/19 06:50 Pulse 73 08/14/19 06:51 Resp 18 08/14/19 06:50 BP 129/77 08/14/19 06:51 Pulse Ox 95 08/03/19 21:25 Results & Data ([facility]) Current Inpatient Medications Current Inpatient Medications: Current Inpatient Medications Acetaminophen (Tylenol) 650 mg PO Q4H PRN PRN Reason: Headache or Minor Fever Stop: 09/02/19 20:46 Last Admin: 08/13/19 12:29 Dose: 650 mg Documented by: Al Hydrox/Mg Hydrox/Simethicone (Maalox) 30 ml PO Q4H PRN PRN Reason: GI Upset Stop: 09/02/19 20:46 Bismuth Subsalicylate (Kaopectate) 15 ml PO PRN PRN PRN Reason: Loose Stool Stop: 09/02/19 20:46 Diphenhydramine HCl (Benadryl Capsule) 50 mg PO BID CLARISA Stop: 09/03/19 10:59 Last Admin: 08/14/19 07:40 Dose: 50 mg Documented by: Hydroxyzine HCl (Vistaril) 50 mg PO HSZ PRN PRN Reason: Insomnia Stop: 09/02/19 20:46 Hydroxyzine HCl (Vistaril) 25 mg PO Q4H PRN PRN Reason: Anxiety Stop: 09/02/19 20:46 Levothyroxine Sodium (Synthroid) 75 mcg PO DAILYBB [facility] Stop: 09/04/19 07:59 Last Admin: 08/14/19 07:40 Dose: 75 mcg Documented by: Branson Carbonate ([place] Carbonate) 450 mg PO BID [facility] Stop: 09/09/19 08:59 Last Admin: 08/14/19 07:42 Dose: 450 mg Documented by: Loratadine (Claritin) 10 mg PO QAM [facility] Stop: 09/03/19 10:59 Last Admin: 08/14/19 07:41 Dose: 10 mg Documented by: Magnesium Hydroxide (Milk Of Magnesia) 30 ml PO DAILY PRN PRN Reason: Constipation Stop: 09/02/19 20:46 Miscellaneous (Remove Nicoderm Patch) 1 ea N/A DAILY@858 [facility] Stop: 09/03/19 08:58 Last Admin: 08/14/19 07:40 Dose: Not Given Documented by: Nicotine (Nicoderm Cq) 7 mg TD [facility] Stop: 09/03/19 08:59 Last Admin: 08/14/19 07:43 Dose: Not Given Documented by: Paliperidone (Invega) 6 mg PO [facility] Stop: 09/10/19 08:59 Last Admin: 08/14/19 07:41 Dose: 6 mg Documented by: Pantoprazole Sodium (Protonix) 40 mg PO [facility] Stop: 09/03/19 21:59 Last Admin: 08/13/19 21:36 Dose: 40 mg Documented by: Simethicone (Mylicon) 80 mg PO TID PRN PRN Reason: Gas or Constipation Stop: 09/03/19 13:59 Simvastatin (Zocor) 10 mg PO [facility] Stop: 09/03/19 21:59 Last Admin: 08/13/19 21:36 Dose: 10 mg Documented by: Sodium Chloride ([place] Nasal) 1 - 2 sprays NA PRN PRN PRN Reason: Nasal Dryness/Congestion Stop: 09/02/19 20:46 Mental Health & Subst Abuse Tx Plasma Center Nurse Name of Plasma Center Nurse: [facility] Phone Number for Plasma Center Nurse: [phone] Post Discharge Appointments Contact Information Discharge Phone Number: Unknown Discharge Address: No known address
[2019-08-14] MEDS: PANTOprazole 40 MG TAB PO SCH (21:18)
[2019-08-14] MEDS: SIMVASTATIN 10 MG TAB PO SCH (21:18)
[2019-08-15] MEDS: LEVOTHYROXINE SODIUM 75 MCG TABLET PO SCH (07:35)
[2019-08-15 08:12] LABS: Potassium 3.9 mmol/L (3.5-5.1)
[2019-08-15] MEDS: LITHIUM CARBONATE 300 MG TAB PO SCH ×2 (08:22→21:20)
[2019-08-15] MEDS: LORATADINE 10 MG TAB PO SCH (08:22)
[2019-08-15] MEDS: NICOTINE 7 MG/24 HR TDSY TD SCH (08:22)
[2019-08-15] MEDS: PALIPERIDONE 3 MG TABCR PO SCH (08:22)
--- NOTE | 2019-08-15 13:11 | Psychiatric Progress Note ---
Date of Service August 15, 2019 Impression / Recommendations Impression 63-year-old female from [place] who has a history of schizophrenia vs schizoaffective disorder (presumed diagnosis of schizoaffective disorder bipolar type) and was admitted after 2 ER visits in 1 week for psychosis and inability to care for herself. She presented on a 302 commitment following a petition by her grandson stating she told him that she was going to shoot herself with a gun and is homeless. She was imprisoned for approximately 1 year on charges of making terroristic threats, and was released 07/24, but was not taking medications and was homeless. She had been seen in the emergency room during the previous weekend and released after several days of stable behavior in the ER. [employer] was paying for a hotel room for her, but she left and was sleeping "on the streets" for at least several days, during which time overnight temperatures were below freezing. Reports from community providers are that she has been neglecting self-care, not attending to her personal needs, not taking her m edicines, and not eating. 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 She is demonstrating paranoia and responding to auditory and visual hallucinations. She is on a 303 as of 08/07. Inpatient treatment is medically necessary as she is severely mentally ill and unable to provide for her own basic needs as a result, and additionally threatened to kill herself as detailed in the 302 petition. Received first dose of Invega sustenna on 08/12. (1) Noncompliance with medication regimen: 08/04/19 - The patient indicates that she has stopped taking her medicine because the names of the directions for the medications are in Tongan and she cannot read them. She also indicates that she no longer has access to her medications and has not taken any for approximately 5 days. The patient also claims to not recall the names of any of her medications and reports that she does not have the conditions for which her known medications are clearly intended. She also seems not to be oriented to year, and memory deficits on testing suggests that there may be some cognitive impairment as well. -The patient's underlying psychiatric condition will be actively treated. It is hoped that with treatment we will be able to better assess whether the patient can independently manage medications, or if she will need active assistance in this regard when she returns to the community. -She has a history of favorably responding to risperidone. We will start the patient on risperidone M tabs at her reported outpatient recommended dose, and as tolerated we will talk to the patient about converting to a Depo form of risperidone, given her history of medication nonadherence. 08/04 -Has been compliant with lithium and Risperdal in the hospital -reviewed Li 0.2 on 08/03/1908/07 - Would benefit from CANTOR and will explore options once we know where she will get outpatient treatment. Barriers include finances, lack of insurance, homelessness, lack of supports, poor insight. 08/12-reviewed. 08/14 - Pt was started on Invega Sustenna 234mg on 08/13/2019, can receive second injection as soon as 08/17/2019 - Will need to discuss ability to continue the injections with the [facility] and [facility] at tomorrow's discharge planning meeting (2) Psychosis: 08/04/19 -The patient has been admitted to the locked, secured behavioral health unit and has been placed in special observation room. She is also being monitored with close observations and every 15-minute direct observation. When more stable she will be actively encouraged to participate in individual, group, and activity therapies. We will also attempt to involve the family if the patient permits us to and if they agree. -Although she was given a diagnosis of schizophrenia in the emergency room, the record, and the patient's presentation, is more consistent with a diagnosis of schizoaffective disorder, bipolar type. She has a reported history of responding favorably to risperidone, and, in addition, she had been prescribed lithium carbonate prior to admission. The issue may be nonadherence with these medications, and the first plan is to restart them at risperidone 3 mg in the morning and 4 mg at bedtime (oral dissolving tablets to help assure adherence) and lithium carbonate 300 mg twice a day with a plan to check her lithium level next week. 08/04 -Interview was difficult again today due to apparent paranoia and lability of affect while utilizing official court interpreter services. Cannot rule out cognitive dysfunction in addition to psychosis. Appears she was not restarted on AM dose of risperdal yesterday. Will attempt to reconfirm prior home dose before restarting due to higher risk for SE at that dose and increased risk for EPS if titrated too quickly. We will continue to expand database as able. 08/05 -Affect remains odd and suspicious however she has not been overtly agitated or aggressive. -We will add 2 mg morning dose of Risperdal tomorrow working towards home dose of 3 mg in the morning and 4mg at bedtime -Ordered fasting glucose and lipids for a.m. for monitoring on atypical antipsychotic 08/06 -Patient remains psychotic, delusional, unable to come up with a reasonable discharge plan (today states she owns a house in [place] that she just bought, but wants the address and does not know where it is). She denies that her family has a PFA against her or that she has any legal problems. She is not a reliable historian, and we will reach out to her [facility] to try to get additional collateral information. -303 hearing scheduled for tomorrow, will request a discharge planning meeting with the [facility] afterwards. -Continue lithium and risperidone, and explore options for outpatient treatment/obtaining medications given her lack of resources. -Fasting labs reviewed for monitoring on an atypical antipsychotic; glucose 109, cholesterol 221, remainder within normal limits. 08/07 -303 hearing held and granted. Recommend 304 [facility] given her history of treatment noncompliance, lack of insight, frequent hospitalizations, and severity of psychotic symptoms and erratic, unsafe behavior when acutely psychotic. -Request records from psychiatric treatment while incarcerated. Patient refused to sign INO for [facility] (where she was referred for outpatient treatment during her 2018 hospitalization here). -Get collateral information from family, as patient reports they were helping her to establish housing. She signed an INO for her grandson who was also the 302 petitioner. -Discharge planning meeting with [facility] Lizzy Pandey. Explore options for housing assistance and OP care (numerous barriers including language, lack of resources/income, citizenship, lack of insurance, poor insight and adherence). -Continue risperidone and increase to 3mg qam and 4mg hs. Explore options for CANTOR (will depend largely on where/how she will access OP care, as no insurance so will have to explore ways to get CANTOR covered). Check w/ [facility] re: ability to supply/administer CANTOR. -Continue lithium and check trough level tomorrow. 08/08 - Pt declines feeling a need to adjust medications - Attempted to discuss subtherapeutic lithium level (0.4) - will offer patient 600mg tonight and continue the 300mg dose each morning - Limited ability to communicate with official court interpreter service today, as patient does not speak at a volume loud enough for official court interpreter to accurately translate despite many attempts to life skills coach patient - Awaiting additional communication from [facility] regarding CANTOR options available 08/09 -Spry dose increased today to 450 mg twice daily; recheck trough level after 5 days (08/15/2019). -Change risperidone to paliperidone, with plan to transition to Invega Sustenna if it is effective and well-tolerated. Sustenna preferred over Risperdal Consta as it can be administered every 4 weeks instead of every 2. She already received her morning dose of risperidone, so will give 3 mg of paliperidone tonight, and 6 mg once daily starting tomorrow. -Patient has now signed releases for [facility] and [facility], so we will request records to clarify previous psychiatric treatment and response. 08/10 - Continue lithium 450mg BID, lithium level scheduled for 08/15/2019 - Continue paliperidone 6mg qAM - ongoing attempts to coordinate with [facility] regarding CANTOR options. Patient's lack of Social Security Number is possibly a barrier to applying for patient assistance programs for medications. Could consider titration of paliperidone to 9mg daily if tolerated. - Meeting between our team, the [facility] and [facility] has been scheduled for 08/15 to discuss aftercare and discharge planning 08/11 - monitor for ongoing improvement on higher dose of Spry and Invega, will be converted to injectable if means to continue outpatient. 08/12 --Reviewed. Will give first of 2 Invega loading injections today, no clear aftercare plan in place so primary team can determine timing of/need for 2nd injection. At minimum she would have more coverage with medication when leaves the hospital. Ideally she would have discharge instructions/medical transport specialist instructions in Slovenian. 08/13 - Currently patient seems more restless, not accepting of need for discharge planning and given her history of incarceration I believe this is the cause rather than worsening bipolar. Will monitor. Explained to patient court order (commitment) at this time and need for county meeting. Encouraged her to consider assistance with relocation to a city with more nauruan speaking people, like [place] or previous chcf offered. Plan: lithium level in am, states she won't take PO meds after discharge. 08/14 - Continue current medication regimen - patient can be given second loading dose of Invega Sustenna as early as 08/16 - Spry level obtained this morning - within therapeutic range at 0.7. Can consider further titration as indicated. - Electrolytes obtained with AM blood work as well. Sodium level is slightly low at 135; all other values were WNL - Pt continues to be preoccupied with discharge, but is able to verbalize desire to continue medications as prescribed on an outpatient basis - Discharge planning meeting is scheduled for tomorrow with the [facility] and [facility] (3) Homeless: 08/04/19 -Until recently, the patient reportedly had been living in a motel room and a "[employer]" motel in [place]. This accommodation was provided through a local benevolent organization known as "[employer]." However, this organization has notified us today that they were only able to provide accommodations during cold weather seasons and that, accordingly, they will not be able to provide accommodations over the balance of the spring, summer, and early derian. -In the past, the patient is live with family members. However, this is clearly not an option at the present time. The context is that the patient reportedly was in [facility] for approximately a year because of her making terroristic threats against the family. While it does seem clear that the family wants to help protect her, they are unable to safely provide chcf. Given the patient's history of neglect of self-care, medication nonadherence, and possible cognitive deficits we are going to investigate structured residential programs as part of our discharge planning. 08/09 -Outpatient case therapist reports that 2 shelters with bilingual staff were identified prior to the patient leaving skilled nursing -[facility] and [facility] in [place]. She remains unwilling to explore housing options, expressing a delusion that she owns a home locally that she can return to. She also believes that her family is living in her home and preventing her from using it. Her outpatient case therapist reports there is an active PFA against the patient from her family, which limits our ability to involve them in treatment. She also reports that the Department of [employer] and [employer] were both notified of the patient's illegal status in this country, but declined to deport her to [place]. 08/10 - Pt continues to verbalize anticipated discharge plans that cannot be confirmed and communication is limited by patient's refusal and PFAs against various family members. - Pt now stating that she is planning to live with her mother in [place] and that she will be picking her up on discharge - patient also admits that she has had no communication with her mother since her admission. 08/12 Reviewed. Inventory Assets Strengths: Agrees to take medications. Basically cooperative with treatment. Pleasant on approach. Concerned family members. Needs: Resolution of psychotic features. Medication adherence. Stable living environment. Risk Factors Assessment Male: No : No Do You Have Access To A Gun?: No Health Problems: Yes Mental Health Diagnoses: Yes Substance Use Disorders: Yes (Patient makes reference to smoking marijuana, but does not clear if this is something that is done regularly or if it interferes anyway with her functioning.) Previous Attempt: No (The patient insists that she does not have a history of intentional self injury. 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.") : No Responsible for Young Children: No Employed: No Stable Relationships: No Supportive Family: Yes (The patient's family has filed a PFA against the patient due to her past behaviors, but it is clear that they remain protective over.) Good Rapport with Provider: No Absence of Any Risk Factors Above: No Interval History Identifying Information ANDREW CYR is a 63-year-old F who has a history of schizoaffective disorder, bipolar type and was admitted on 08/03/19 20:47 on a 302 involuntary commitment after her grandson reported that she had told him that she had very recently threatened to get a gun and shoot herself. 303 granted on 08/08/2019. Chief Complaint "I'm good, thank you." (interview conducted with assistance from virtual official court interpreter) Review of Systems Notes Constitutional: denied Cardiovascular: denied Respiratory: denied Gastrointestinal: denied Neurological: denied Psychiatric: denies symptoms other than stated above Total of at least 10 systems reviewed, pertinent positives as above and in HPI. Sleep Information Total Hours of Sleep: 5.5 Sleep Comments: pt on q-15 minute checks Meal Information Percent Meal Consumed - Breakfast: 100 Percent Meal Consumed - Lunch: 100 Percent Meal Consumed - Dinner: 100 Subjective Subjective Patient was seen & assessed and interval progress reviewed with treatment team. Staff report the patient is continuing to be observed responding to internal stimuli, though behavior has been largely appropriate. Pt was seen today with assistance from [employer] interpreting service on an iPad. Two separate calls were conducted in order to complete interview (Tye - [phone]; and Fred - [phone]). Pt initially is calm and cooperative, reporting she is "good". Pt does report "a little" injection site pain related to receiving the first injection of Invega Sustenna on 08/12. Pt then begins to verbalize that she is leaving today, that she just came here for "a formula." Pt reported that " medications were given to me 5 days ago at the other hospital" and that she believes "they keep pushing the day back." Pt frequently stated that her medications were just in the locker and that she would be willing to accept a prescription and then she could go home. Pt was reminded of estimated length of stay of 3-5 days, as well as of the discharge planning meeting tomorrow. Pt was not happy about hearing this and continued to state that she was frustrated and she would be leaving today. Pt did state "I don't want to wait for meetings. You write the prescription, it will say when to take it, how much to take, and I will do that. I know I have to be on the medication permanently. I will take them." Pt denies auditory or visual hallucinations despite staff's observations that she is responding to internal stimuli. Pt did mention "I know that it is not the psychiatrists who are making the decisions. It is the president and Joseline. Someone needs to tell them they do not get to decide that." Pt then abruptly returned to her desire to be discharged today. She denied any additional needs at this time, and estimated length of stay was again discussed. Physical Exam Psychiatric Orientation: alert, oriented x 3 and + guarded (argumentative when discussing discharge planning) Apperance: appropriately dressed, appropriately groomed and appeared stated age Eye Contact: + fair eye contact (attention appropriately divided between this provider and iPad official court interpreter) Motor Behavior: steady gait and station and no abnormal motor movements Speech: normal rate/rhythm/volume of speech (irritable tone at times, especially when discussing discharge ) Affect: + irritable affect Mood: no depressed mood ("I'm good") Thought Process: goal directed thought process and + perseveration; + thought process not linear or logical Thought Content: + preoccupation (with discharge date) and + delusions (reporting belief that the president/"Joseline" are controlling her discharge) Suicidal Thoughts: denies suicidal thoughts Homicidal Thoughts: denies homicidal thoughts Hallucinations: no auditory hallucinations and no visual hallucinations Patient denies, though staff continues to observe her speaking to herself when alone in her room Cognition: attention grossly intact and language grossly intact (no apparent communication concerns, official court interpreter utilized ) Insight: + poor insight (chronic) Judgement: + poor judgement (chronic) Vital Signs (Past 24 Hours) Last Vital Signs Temp 36.8 C 08/15/19 06:43 Pulse 78 08/15/19 06:43 Resp 18 08/15/19 06:43 BP 124/78 08/15/19 06:43 Pulse Ox 95 08/03/19 21:25 Results & Data ([facility]) Laboratory Results Laboratory Results - last 24 hr 08/15/19 08/15/19 07:48 07:48 Sodium 135 L Potassium 3.9 Chloride 102 Carbon Dioxide 28 Anion Gap 5.0 Spry 0.7 Current Inpatient Medications Current Inpatient Medications: Current Inpatient Medications Acetaminophen (Tylenol) 650 mg PO Q4H PRN PRN Reason: Headache or Minor Fever Stop: 09/02/19 20:46 Last Admin: 08/13/19 12:29 Dose: 650 mg Documented by: Al Hydrox/Mg Hydrox/Simethicone (Maalox) 30 ml PO Q4H PRN PRN Reason: GI Upset Stop: 09/02/19 20:46 Bismuth Subsalicylate (Kaopectate) 15 ml PO PRN PRN PRN Reason: Loose Stool Stop: 09/02/19 20:46 Diphenhydramine HCl (Benadryl Capsule) 50 mg PO BID CLARISA Stop: 09/03/19 10:59 Last Admin: 08/15/19 08:22 Dose: 50 mg Documented by: Hydroxyzine HCl (Vistaril) 50 mg PO HSZ PRN PRN Reason: Insomnia Stop: 09/02/19 20:46 Hydroxyzine HCl (Vistaril) 25 mg PO Q4H PRN PRN Reason: Anxiety Stop: 09/02/19 20:46 Levothyroxine Sodium (Synthroid) 75 mcg PO DAILYBB [facility] Stop: 09/04/19 07:59 Last Admin: 08/15/19 07:35 Dose: 75 mcg Documented by: Spry Carbonate (Spry Carbonate) 450 mg PO BID [facility] Stop: 09/09/19 08:59 Last Admin: 08/15/19 08:22 Dose: 450 mg Documented by: Loratadine (Claritin) 10 mg PO QAM [facility] Stop: 09/03/19 10:59 Last Admin: 08/15/19 08:22 Dose: 10 mg Documented by: Magnesium Hydroxide (Milk Of Magnesia) 30 ml PO DAILY PRN PRN Reason: Constipation Stop: 09/02/19 20:46 Miscellaneous (Remove Nicoderm Patch) 1 ea N/A DAILY@[id number] [facility] Stop: 09/03/19 08:58 Last Admin: 08/15/19 08:22 Dose: Not Given Documented by: Nicotine ([facility]oderm Cq) [facility] Stop: 09/03/19 08:59 Last Admin: 08/15/19 08:22 Dose: Not Given Documented by: Paliperidone (Invega) 6 mg PO QAM [facility] Stop: 09/10/19 08:59 Last Admin: 08/15/19 08:22 Dose: 6 mg Documented by: Pantoprazole Sodium (Protonix) 40 mg PO [facility] Stop: 09/03/19 21:59 Last Admin: 08/14/19 21:18 Dose: 40 mg Documented by: Simethicone (Mylicon) 80 mg PO TID PRN PRN Reason: Gas or Constipation Stop: 09/03/19 13:59 Simvastatin (Zocor) 10 mg PO [facility] Stop: 09/03/19 21:59 Last Admin: 08/14/19 21:18 Dose: 10 mg Documented by: Sodium Chloride ([place] Nasal) 1 - 2 sprays NA PRN PRN PRN Reason: Nasal Dryness/Congestion Stop: 09/02/19 20:46 Mental Health & Subst Abuse Tx Machine Stripper Cutter Name of Machine Stripper Cutter: [employer] [facility] Phone Number for Machine Stripper Cutter: [phone] Post Discharge Appointments Contact Information Discharge Phone Number: Unknown Discharge Address: No known address (1) Psychosis Psychosis type: unspecified psychosis type Qualified Code(s): F29 - Unspecified psychosis not due to a substance or known physiological condition
[2019-08-15] MEDS: PANTOprazole 40 MG TAB PO SCH (21:21)
[2019-08-15] MEDS: SIMVASTATIN 10 MG TAB PO SCH (21:21)
[2019-08-16] MEDS: PALIPERIDONE 3 MG TABCR PO SCH (08:16)
[2019-08-16] MEDS: LEVOTHYROXINE SODIUM 75 MCG TABLET PO SCH (08:16)
[2019-08-16] MEDS: LORATADINE 10 MG TAB PO SCH (08:16)
[2019-08-16] MEDS: LITHIUM CARBONATE 300 MG TAB PO SCH ×2 (08:16→20:57)
[2019-08-16] MEDS: NICOTINE 7 MG/24 HR TDSY TD SCH (08:21)
--- NOTE | 2019-08-16 14:39 | Psychiatric Progress Note ---
Date of Service August 16, 2019 Impression / Recommendations Impression 63-year-old female from [place] who has a history of schizophrenia vs schizoaffective disorder (presumed diagnosis of schizoaffective disorder bipolar type) and was admitted after 2 ER visits in 1 week for psychosis and inability to care for herself. She presented on a 302 commitment following a petition by her grandson stating she told him that she was going to shoot herself with a gun. She was imprisoned for approximately 1 year on charges of making terroristic threats, and was released 07/24, but was not taking medications and was homeless. She had been seen in the emergency room during the previous weekend and released after several days of stable behavior in the ER. [employer] was paying for a hotel room for her, but she left and was sleeping "on the streets" for at least several days, during which time overnight temperatures were below freezing. Reports from community providers are that she has been neglecting self-care, not attending to her personal needs, not taking her medicines, and not eating. She violated the PFA that her family members have against her, going to their place of business on the day of presentation. 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 She is demonstrating paranoia and responding to auditory and visual hallucinations. She is on a 303 as of 08/07, and will require 304. Inpatient treatment is medically necessary as she is severely mentally ill and unable to provide for her own basic needs as a result, and additionally threatened to kill herself as detailed in the 302 petition. Received first dose of Invega Sustenna on 08/12. (1) Noncompliance with medication regimen: 08/04/19 - The patient indicates that she has stopped taking her medicine because the names of the directions for the medications are in Sami and she cannot read them. She also indicates that she no longer has access to her medications and has not taken any for approximately 5 days. The patient also claims to not recall the names of any of her medications and reports that she does not have the conditions for which her known medications are clearly intended. She also seems not to be oriented to year, and memory deficits on testing suggests that there may be some cognitive impairment as well. -The patient's underlying psychiatric condition will be actively treated. It is hoped that with treatment we will be able to better assess whether the patient can independently manage medications, or if she will need active assistance in this regard when she returns to the community. -She has a history of favorably responding to risperidone. We will start the patient on risperidone M tabs at her reported outpatient recommended dose, and as tolerated we will talk to the patient about converting to a Depo form of risperidone, given her history of medication nonadherence. 08/04 -Has been compliant with lithium and Risperdal in the hospital -reviewed Li 0.2 on 08/03/1908/07 - Would benefit from CANTOR and will explore options once we know where she will get outpatient treatment. Barriers include finances, lack of insurance, homelessness, lack of supports, poor insight. 08/12-reviewed. 08/14 - Pt was started on Invega Sustenna 234mg on 08/13/2019, can receive second injection as soon as 08/17/2019 - Will need to discuss ability to continue the injections with the [facility] and [facility] at tomorrow's discharge planning meeting 08/15 -Patient more irritable, stating she will not take medications or accept further injections. -Discharge planning meeting held with [facility] and [facility]; patient has many barriers to accessing treatment, including lack of valid visa, lack of insurance or funding, [facility] unwillingness to provide treatment, and inability to get medication. She is homeless, has no support from family, and has legal problems. She will need a [address] [place] [address]. (2) Psychosis: 08/04/19 -The patient has been admitted to the locked, secured behavioral health unit and has been placed in special observation room. She is also being monitored with close observations and every 15-minute direct observation. When more stable she will be actively encouraged to participate in individual, group, and activity therapies. We will also attempt to involve the family if the patient permits us to and if they agree. -Although she was given a diagnosis of schizophrenia in the emergency room, the record, and the patient's presentation, is more consistent with a diagnosis of schizoaffective disorder, bipolar type. She has a reported history of responding favorably to risperidone, and, in addition, she had been prescribed lithium carbonate prior to admission. The issue may be nonadherence with these medications, and the first plan is to restart them at risperidone 3 mg in the morning and 4 mg at bedtime (oral dissolving tablets to help assure adherence) and lithium carbonate 300 mg twice a day with a plan to check her lithium level next week. 08/04 -Interview was difficult again today due to apparent paranoia and lability of affect while utilizing biodiesel product manager services. Cannot rule out cognitive dysfunction in addition to psychosis. Appears she was not restarted on AM dose of risperdal yesterday. Will attempt to reconfirm prior home dose before restarting due to higher risk for SE at that dose and increased risk for EPS if titrated too quickly. We will continue to expand database as able. 08/05 -Affect remains odd and suspicious however she has not been overtly agitated or aggressive. -We will add 2 mg morning dose of Risperdal tomorrow working towards home dose of 3 mg in the morning and 4mg at bedtime -Ordered fasting glucose and lipids for a.m. for monitoring on atypical antipsychotic 08/06 -Patient remains psychotic, delusional, unable to come up with a reasonable discharge plan (today states she owns a house in [place] that she just bought, but wants the address and does not know where it is). She denies that her family has a PFA against her or that she has any legal problems. She is not a reliable historian, and we will reach out to her BC to try to get additional collateral information. -303 hearing scheduled for tomorrow, will request a discharge planning meeting with the [facility] afterwards. -Continue lithium and risperidone, and explore options for outpatient treatment/obtaining medications given her lack of resources. -Fasting labs reviewed for monitoring on an atypical antipsychotic; glucose 109, cholesterol 221, remainder within normal limits. 08/07 -303 hearing held and granted. Recommend 304 [facility] given her history of treatment noncompliance, lack of insight, frequent hospitalizations, and severity of psychotic symptoms and erratic, unsafe behavior when acutely psychot ic. -Request records from psychiatric treatment while incarcerated. Patient refused to sign INO for [facility] (where she was referred for outpatient treatment during her 2018 hospitalization here). -Get collateral information from family, as patient reports they were helping her to establish housing. She signed an INO for her grandson who was also the 302 petitioner. -Discharge planning meeting with [facility] Lizzy Pandey. Explore options for housing assistance and OP care (numerous barriers including language, lack of resources/income, citizenship, lack of insurance, poor insight and adherence). -Continue risperidone and increase to 3mg qam and 4mg hs. Explore options for CANTOR (will depend largely on where/how she will access OP care, as no insurance so will have to explore ways to get CANTOR covered). Check w/ [facility] re: ability to supply/administer CANTOR. -Continue lithium and check trough level tomorrow. 08/08 - Pt declines feeling a need to adjust medications - Attempted to discuss subtherapeutic lithium level (0.4) - will offer patient 600mg tonight and continue the 300mg dose each morning - Limited ability to communicate with biodiesel product manager service today, as patient does not speak at a volume loud enough for biodiesel product manager to accurately translate despite many attempts to defensive line coach patient - Awaiting additional communication from [facility] regarding CANTOR options available 08/09 -Weed dose increased today to 450 mg twice daily; recheck trough level after 5 days (08/15/2019). -Change risperidone to paliperidone, with plan to transition to Invega Sustenna if it is effective and well-tolerated. Sustenna preferred over Risperdal Consta as it can be administered every 4 weeks instead of every 2. She already received her morning dose of risperidone, so will give 3 mg of paliperidone tonight, and 6 mg once daily starting tomorrow. -Patient has now signed releases for [facility] and [facility], so we will request records to clarify previous psychiatric treatment and response. 08/10 - Continue lithium 450mg BID, lithium level scheduled for 08/15/2019 - Continue paliperidone 6mg qAM - ongoing attempts to coordinate with [facility] regarding CANTOR options. Patient's lack of Social Security Number is possibly a barrier to applying for patient assistance programs for medications. Could consider titration of paliperidone to 9mg daily if tolerated. - Meeting between our team, the [facility] and [facility] has been scheduled for 08/15 to discuss aftercare and discharge planning 08/11 - monitor for ongoing improvement on higher dose of Weed and Invega, will be converted to injectable if means to continue outpatient. 08/12 --Reviewed. Will give first of 2 Invega loading injections today, no clear aftercare plan in place so primary team can determine timing of/need for 2nd injection. At minimum she would have more coverage with medication when leaves the hospital. Ideally she would have discharge instructions/biomedical engineer instructions in Maltese. 08/13 - Currently patient seems more restless, not accepting of need for discharge planning and given her history of incarceration I believe this is the cause rather than worsening bipolar. Will monitor. Explained to patient court order (commitment) at this time and need for county meeting. Encouraged her to consider assistance with relocation to a city with more singaporean speaking people, like [place] or previous long-term offered. Plan: lithium level in am, states she won't take PO meds after discharge. 08/14 - Continue current medication regimen - patient can be given second loading dose of Invega Sustenna as early as 08/16 - Weed level obtained this morning - within therapeutic range at 0.7. Can consider further titration as indicated. - Electrolytes obtained with AM blood work as well. Sodium level is slightly low at 135; all other values were WNL - Pt continues to be preoccupied with discharge, but is able to verbalize desire to continue medications as prescribed on an outpatient basis - Discharge planning meeting is scheduled for tomorrow with the [facility] and [facility] 08/15 -Discharge planning meeting: No current outpatient treatment options, unwilling to accept assistance to complete visa or [place] applications, no way to get medications and no outpatient clinicians available. -Remains unwilling to explore options for long-term/housing. -File for 304 hearing to be held next week. (3) Homeless: 08/04/19 -Until recently, the patient reportedly had been living in a motel room and a "[employer]" motel in [place]. This accommodation was provided through a local benevolent organization known as [facility]." However, this organization has notified us today that they were only able to provide accommodations during cold weather seasons and that, accordingly, they will not be able to provide accommodations over the balance of the spring, summer, and early derian. -In the past, the patient is live with family members. However, this is clearly not an option at the present time. The context is that the patient reportedly was in snf for approximately a year because of her making terroristic threats against the family. While it does seem clear that the family wants to help protect her, they are unable to safely provide long-term. Given the patient's history of neglect of self-care, medication nonadherence, and possible cognitive deficits we are going to investigate structured residential programs as part of our discharge planning. 08/09 -Outpatient case packer and sealer reports that 2 shelters with bilingual staff were identified prior to the patient leaving [facility] er -[facility] and [facility] in [place]. She remains unwilling to explore housing options, expressing a delusion that she owns a home locally that she can return to. She also believes that her family is living in her home and preventing her from using it. Her outpatient case packer and sealer reports there is an active PFA against the patient from her family, which limits our ability to involve them in treatment. She also reports that the [employer] [place] [employer] and [facility] were both notified of the patient's illegal status in this country, but declined to deport her to [facility]. 08/10 - Pt continues to verbalize anticipated discharge plans that cannot be confirmed and communication is limited by patient's refusal and PFAs against various family members. - Pt now stating that she is planning to live with her mother in [place] and that she will be picking her up on discharge - patient also admits that she has had no communication with her mother since her admission. 08/12 Reviewed. Inventory Assets Strengths: Agrees to take medications. Basically cooperative with treatment. Pleasant on approach. Concerned family members. Needs: Resolution of psychotic features. Medication adherence. Stable living environment. Risk Factors Assessment Male: No : No Do You Have Access To A Gun?: No Health Problems: Yes Mental Health Diagnoses: Yes Substance Use Disorders: Yes (Patient makes reference to smoking marijuana, but does not clear if this is something that is done regularly or if it interferes anyway with her functioning.) Previous Attempt: No (The patient insists that she does not have a history of intentional self injury. 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.") : No Responsible for Young Children: No Employed: No Stable Relationships: No Supportive Family: Yes (The patient's family has filed a PFA against the patient due to her past behaviors, but it is clear that they remain protective over.) Good Rapport with Provider: No Absence of Any Risk Factors Above: No Interval History Identifying Information ANDREW CYR is a 63-year-old F who has a history of schizoaffective disorder, bipolar type and was admitted on 08/03/19 20:47 on a 302 involuntary commitment after her grandson reported that she had told him that she had very recently threatened to get a gun and shoot herself. 303 granted on 08/08/2019. Chief Complaint "Good, thank you". Review of Systems Sleep Information Total Hours of Sleep: 5.75 Sleep Comments: pt on q-15 minute checks Meal Information Percent Meal Consumed - Breakfast: 100 Percent Meal Consumed - Lunch: 100 Percent Meal Consumed - Dinner: 100 Nutrition Comment: per meal record Subjective Subjective Patient was seen & assessed and interval progress reviewed with treatment team. Staff report she has been spending most of her time in her room, talking to herself, and told staff her was in the wall. She remains compliant with medication, is eating 100% of meals, and showered independently. She was given a copy of her 303 hearing findings and said she was "leaving today," and threw the paper away. Discharge planning meeting with social work, [facility], and [facility]: see health social work professor's note. In short, [facility] concerned unable to meet her needs, no way to get medications, and county unable to financially support outpatient treatment or medications. She would need to renew her Visa in order to get [place] and have access to care. Also spoke with Dr. Sepulveda, psychiatrist at [facility], to review case and referral to [facility]. On my assessment, she was seen with health social work professor Macie and biodiesel product manager #[id number]. She reports good mood, denies problems with sleep, appetite and medications. She denies suicidal thoughts and homicidal thoughts. She says she is ready to leave, and plans to "go to the foundation that I have, 50 or 60 people, thinking about going there to see them." She says that this is in [facility], and that she will fly there and has money to do this. When asked who these people are, she says she does not have any family, but has a friend there who will become her . She then says he is also present in [place], and laughs throughout the discussion. She agreed to talk with her case packer and sealer Lizzy about completing paperwork to renew her visa and apply for insurance so that she can get outpatient treatment while still in the [place], but then when Lizzy called and talked to her about this, she refused to speak with her, became irritated, said she did not need help, and did not want us to keep trying to help her. She also said she did not want any more medication, and wanted to leave the hospital. Physical Exam Psychiatric Orientation: alert and cooperative Apperance: appropriately dressed, appropriately groomed and appeared stated age Eye Contact: + fair eye contact Motor Behavior: steady gait and station and no abnormal motor movements Speech: normal rate/rhythm/volume of speech Maltese, sometimes mumbles quietly under her breath Affect: + labile affect Changes rapidly from euthymic to irritable Thought Process: + tangential thought process and + looseness of associations Thought Content: + paranoid and + delusions Suicidal Thoughts: denies suicidal thoughts Homicidal Thoughts: denies homicidal thoughts Hallucinations: + auditory hallucinations Cognition: + recent memory not intact Insight: + impaired insight Judgement: + impaired judgement Vital Signs (Past 24 Hours) Last Vital Signs Temp 36.8 C 08/16/19 06:37 Pulse 73 08/16/19 06:39 Resp 18 08/16/19 06:37 BP 115/71 08/16/19 06:39 Pulse Ox 95 08/03/19 21:25 Results & Data ([facility]) Current Inpatient Medications Current Inpatient Medications: Current Inpatient Medications Acetaminophen (Tylenol) 650 mg PO Q4H PRN PRN Reason: Headache or Minor Fever Stop: 09/02/19 20:46 Last Admin: 08/13/19 12:29 Dose: 650 mg Documented by: Al Hydrox/Mg Hydrox/Simethicone (Maalox) 30 ml PO Q4H PRN PRN Reason: GI Upset Stop: 09/02/19 20:46 Bismuth Subsalicylate (Kaopectate) 15 ml PO PRN PRN PRN Reason: Loose Stool Stop: 09/02/19 20:46 Diphenhydramine HCl (Benadryl Capsule) 50 mg PO BID CLARISA Stop: 09/03/19 10:59 Last Admin: 08/16/19 08:15 Dose: 50 mg Documented by: Hydroxyzine HCl (Vistaril) 50 mg PO HSZ PRN PRN Reason: Insomnia Stop: 09/02/19 20:46 Hydroxyzine HCl (Vistaril) 25 mg PO Q4H PRN PRN Reason: Anxiety Stop: 09/02/19 20:46 Levothyroxine Sodium (Synthroid) 75 mcg PO DAILYBB [facility] Stop: 09/04/19 07:59 Last Admin: 08/16/19 08:16 Dose: 75 mcg Documented by: Weed Carbonate (Weed Carbonate) 450 mg PO BID [facility] Stop: 09/09/19 08:59 Last Admin: 08/16/19 08:16 Dose: 450 mg Documented by: Loratadine (Claritin) 10 mg PO QAM [facility] Stop: 09/03/19 10:59 Last Admin: 08/16/19 08:16 Dose: 10 mg Documented by: Magnesium Hydroxide (Milk Of Magnesia) 30 ml PO DAILY PRN PRN Reason: Constipation Stop: 09/02/19 20:46 [facility]iper[facility] (Invega) [facility] Stop: 09/10/19 08:59 Last Admin: 08/16/19 08:16 Dose: 6 mg Documented by: Pantoprazole Sodium (Protonix) 40 mg PO [facility] Stop: 09/03/19 21:59 Last Admin: 08/15/19 21:21 Dose: 40 mg Documented by: Simethicone (Mylicon) 80 mg PO TID PRN PRN Reason: Gas or Constipation Stop: 09/03/19 13:59 Simvastatin (Zocor) 10 mg PO [facility] Stop: 09/03/19 21:59 Last Admin: 08/15/19 21:21 Dose: 10 mg Documented by: Sodium Chloride ([place] Nasal) 1 - 2 sprays NA PRN PRN PRN Reason: Nasal Dryness/Congestion Stop: 09/02/19 20:46 Mental Health & Subst Abuse Tx Product Owner Name of Product Owner: [facility] Katherine Ball Phone Number for Product Owner: [phone] Post Discharge Appointments Contact Information Discharge Phone Number: Unknown Discharge Address: No known address (1) Psychosis Psychosis type: unspecified psychosis type Qualified Code(s): F29 - Unspecified psychosis not due to a substance or known physiological condition
[2019-08-16] MEDS: SIMVASTATIN 10 MG TAB PO SCH (20:56)
[2019-08-16] MEDS: PANTOprazole 40 MG TAB PO SCH (20:56)
[2019-08-17] MEDS: LORATADINE 10 MG TAB PO SCH (08:21)
[2019-08-17] MEDS: LITHIUM CARBONATE 300 MG TAB PO SCH ×2 (08:21→21:39)
[2019-08-17] MEDS: PALIPERIDONE 3 MG TABCR PO SCH (08:21)
[2019-08-17] MEDS: LEVOTHYROXINE SODIUM 75 MCG TABLET PO SCH (08:22)
[2019-08-17] MEDS ORDERED: PALIPERIDONE PALMITATE 156 MG/ML SYR IM ONE (09:00)
--- NOTE | 2019-08-17 10:18 | Psychiatric Progress Note ---
Date of Service August 17, 2019 Impression / Recommendations Impression 63-year-old female from [place] who has a history of schizophrenia vs schizoaffective disorder (presumed diagnosis of schizoaffective disorder bipolar type) and was admitted after 2 ER visits in 1 week for psychosis and inability to care for herself. She presented on a 302 commitment following a petition by her grandson stating she told him that she was going to shoot herself with a gun. She was imprisoned for approximately 1 year on charges of making terroristic threats, and was released 07/24, but was not taking medications and was homeless. She had been seen in the emergency room during the previous weekend and released after several days of stable behavior in the ER. [employer] was paying for a hotel room for her, but she left and was sleeping "on the streets" for at least several days, during which time overnight temperatures were below freezing. Reports from community providers are that she has been neglecting self-care, not attending to her personal needs, not taking her medicines, and not eating. She violated the PFA that her family members have against her, going to their place of business on the day of presentation. 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 She is demonstrating paranoia and responding to auditory and visual hallucinations. She is on a 303 as of 08/07, and will require 304. Inpatient treatment is medically necessary as she is severely mentally ill and unable to provide for her own basic needs as a result, and additionally threatened to kill herself as detailed in the 302 petition. Received first dose of Invega Sustenna on 08/12, second provided on 08/16. (1) Noncompliance with medication regimen: 08/04/19 - The patient indicates that she has stopped taking her medicine because the names of the directions for the medications are in Slovenian and she cannot read them. She also indicates that she no longer has access to her medications and has not taken any for approximately 5 days. The patient also claims to not recall the names of any of her medications and reports that she does not have the conditions for which her known medications are clearly intended. She also seems not to be oriented to year, and memory deficits on testing suggests that there may be some cognitive impairment as well. -The patient's underlying psychiatric condition will be actively treated. It is hoped that with treatment we will be able to better assess whether the patient can independently manage medications, or if she will need active assistance in this regard when she returns to the community. -She has a history of favorably responding to risperidone. We will start the patient on risperidone M tabs at her reported outpatient recommended dose, and as tolerated we will talk to the patient about converting to a Depo form of risperidone, given her history of medication nonadherence. 08/04 -Has been compliant with lithium and Risperdal in the hospital -reviewed Li 0.2 on 08/03/1908/07 - Would benefit from CANTOR and will explore options once we know where she will get outpatient treatment. Barriers include finances, lack of insurance, homelessness, lack of supports, poor insight. 08/12-reviewed. 08/14 - Pt was started on Invega Sustenna 234mg on 08/13/2019, can receive second injection as soon as 08/17/2019 - Will need to discuss ability to continue the injections with the [facility] and [facility] at tomorrow's discharge planning meeting 08/15 -Patient more irritable, stating she will not take medications or accept further injections. -Discharge planning meeting held with [facility] and [facility]; patient has many barriers to accessing treatment, including lack of valid visa, lack of insurance or funding, [facility] unwillingness [facility] provide treatment, and inability to get me dication. She is homeless, has no support from family, and has legal problems. She will need a [address] [place] [address]. (2) Psychosis: 08/04/19 -The patient has been admitted to the locked, secured behavioral health unit and has been placed in special observation room. She is also being monitored with close observations and every 15-minute direct observation. When more stable she will be actively encouraged to participate in individual, group, and activity therapies. We will also attempt to involve the family if the patient permits us to and if they agree. -Although she was given a diagnosis of schizophrenia in the emergency room, the record, and the patient's presentation, is more consistent with a diagnosis of schizoaffective disorder, bipolar type. She has a reported history of responding favorably to risperidone, and, in addition, she had been prescribed lithium carbonate prior to admission. The issue may be nonadherence with these medications, and the first plan is to restart them at risperidone 3 mg in the morning and 4 mg at bedtime (oral dissolving tablets to help assure adherence) and lithium carbonate 300 mg twice a day with a plan to check her lithium level next week. 08/04 -Interview was difficult again today due to apparent paranoia and lability of affect while utilizing bilingual interpreter services. Cannot rule out cognitive dysfunction in addition to psychosis. Appears she was not restarted on AM dose of risperdal yesterday. Will attempt to reconfirm prior home dose before restarting due to higher risk for SE at that dose and increased risk for EPS if titrated too quickly. We will continue to expand database as able. 08/05 -Affect remains odd and suspicious however she has not been overtly agitated or aggressive. -We will add 2 mg morning dose of Risperdal tomorrow working towards home dose of 3 mg in the morning and 4mg at bedtime -Ordered fasting glucose and lipids for a.m. for monitoring on atypical antipsychotic 08/06 -Patient remains psychotic, delusional, unable to come up with a reasonable discharge plan (today states she owns a house in [place] that she just bought, but wants the address and does not know where it is). She denies that her family has a PFA against her or that she has any legal problems. She is not a reliable historian, and we will reach out to her [facility] to try to get additional collateral information. -303 hearing scheduled for tomorrow, will request a discharge planning meeting with the [facility] afterwards. -Continue lithium and risperidone, and explore options for outpatient treatment/obtaining medications given her lack of resources. -Fasting labs reviewed for monitoring on an atypical antipsychotic; glucose 109, cholesterol 221, remainder within normal limits. 08/07 -303 hearing held and granted. Recommend 304 [facility] given her history of treatment noncompliance, lack of insight, frequent hospitalizations, and severity of psychotic symptoms and erratic, unsafe behavior when acutely psychotic. -Request records from psychiatric treatment while incarcerated. Patient refused to sign INO for [facility] (where she was referred for outpatient treatment during her 2018 hospitalization here). -Get collateral information from family, as patient reports they were helping her to establish housing. She signed an INO for her grandson who was also the 302 petitioner. -Discharge planning meeting with [facility] Lizzy Pandey. Explore options for housing assistance and OP care (numerous barriers including language, lack of resources/income, citizenship, lack of insurance, poor insight and adherence). -Continue risperidone and increase to 3mg qam and 4mg hs. Explore options for CANTOR (will depend largely on where/how she will access OP care, as no insurance so will have to explore ways to get CANTOR covered). Check w/ [facility] re: ability to supply/administer CANTOR. -Continue lithium and check trough level tomorrow. 08/08 - Pt declines feeling a need to adjust medications - Attempted to discuss subtherapeutic lithium level (0.4) - will offer patient 600mg tonight and continue the 300mg dose each morning - Limited ability to communicate with bilingual interpreter service today, as patient does not speak at a volume loud enough for bilingual interpreter to accurately translate despite many attempts to value stream coach patient - Awaiting additional communication from [facility] regarding CANTOR options available 08/09 -[place] dose increased today to 450 mg twice daily; recheck trough level after 5 days (08/15/2019). -Change risperidone to paliperidone, with plan to transition to Invega Sustenna if it is effective and well-tolerated. Sustenna preferred over Risperdal Consta as it can be administered every 4 weeks instead of every 2. She already received her morning dose of risperidone, so will give 3 mg of paliperidone tonight, and 6 mg once daily starting tomorrow. -Patient has now signed releases for [facility] and [facility], so we will request records to clarify previous psychiatric treatment and response. 08/10 - Continue lithium 450mg BID, lithium level scheduled for 08/15/2019 - Continue paliperidone 6mg qAM - ongoing attempts to coordinate with [facility] regarding CANTOR options. Patient's lack of Social Security Number is possibly a barrier to applying for patient assistance programs for medications. Could consider titration of paliperidone to 9mg daily if tolerated. - Meeting between our team, the [facility] and [facility] has been scheduled for 08/15 to discuss aftercare and discharge planning 08/11 - monitor for ongoing improvement on higher dose of [place] and Invega, will be converted to injectable if means to continue outpatient. 08/12 --Reviewed. Will give first of 2 Invega loading injections today, no clear aftercare plan in place so primary team can determine timing of/need for 2nd injection. At minimum she would have more coverage with medication when leaves the hospital. Ideally she would have discharge instructions/medical operations supervisor instructions in Canadian. 08/13 - Currently patient seems more restless, not accepting of need for discharge planning and given her history of incarceration I believe this is the cause rather than worsening bipolar. Will monitor. Explained to patient court order (commitment) at this time and need for county meeting. Encouraged her to consider assistance with relocation to a city with more nauruan speaking people, like [place] or previous fdc offered. Plan: lithium level in am, states she won't take PO meds after discharge. 08/14 - Continue current medication regimen - patient can be given second loading dose of Invega Sustenna as early as 08/16 - [place] level obtained this morning - within therapeutic range at 0.7. Can consider further titration as indicated. - Electrolytes obtained with AM blood work as well. Sodium level is slightly low at 135; all other values were WNL - Pt continues to be preoccupied with discharge, but is able to verbalize desire to continue medications as prescribed on an outpatient basis - Discharge planning meeting is scheduled for tomorrow with the [facility] and [facility] 08/15 -Discharge planning meeting: No current outpatient treatment options, unwilling to accept assistance to complete visa or [place] applications, no way to get medications and no outpatient clinicians available. -Remains unwilling to explore options for fdc/housing. -File for 304 hearing to be held next week. 08/16 - Meeting held today with patient's CM and home health care social worker - patient provided verbal permission to work with CM while in the hospital and to allow her to coordinate with [facility] and the patient's brother - We continue to explore possible options for ongoing Invega Sustenna injections - patient did receive her second initiation injection today - (3) Homeless: 08/04/19 -Until recently, the patient reportedly had been living in a motel room and a "[employer]" motel in [place]. This accommodation was provided through a local benevolent organization known as "[employer]." However, this organization has notified us today that they were only able to provide accommodations during cold weather seasons and that, accordingly, they will not be able to provide accommodations over the balance of the spring, summer, and early derian. -In the past, the patient is live with family members. However, this is clearly not an option at the present time. The context is that the patient reportedly was in assisted for approximately a year because of her making terroristic threats against the family. While it does seem clear that the family wants to help protect her, they are unable to safely provide fdc. Given the patient's history of neglect of self-care, medication nonadherence, and possible cognitive deficits we are going to investigate structured residential programs as part of our discharge planning. 08/09 -Outpatient senior case manager reports that 2 shelters with bilingual staff were identified prior to the patient leaving shelter -[facility] and [facility] in [place]. She remains unwilling to explore housing options, expressing a delusion that she owns a home locally that she can return to. She also believes that her family is living in her home and preventing her from using it. Her outpatient senior case manager reports there is an active PFA against the patient from her family, which limits our ability to involve them in treatment. She also reports that the Department of [employer] and [employer] were both notified of the patient's illegal status in this country, but declined to deport her to [place]. 08/10 - Pt continues to verbalize anticipated discharge plans that cannot be confirmed and communication is limited by patient's refusal and PFAs against various family members. - Pt now stating that she is planning to live with her mother in [place] and that she will be picking her up on discharge - patient also admits that she has had no communication with her mother since her admission. 08/12 Reviewed. Inventory Assets Strengths: Agrees to take medications. Basically cooperative with treatment. Pleasant on approach. Concerned family members. Needs: Resolution of psychotic features. Medication adherence. Stable living environment. Risk Factors Assessment Male: No : No Do You Have Access To A Gun?: No Health Problems: Yes Mental Health Diagnoses: Yes Substance Use Disorders: Yes (Patient makes reference to smoking marijuana, but does not clear if this is something that is done regularly or if it interferes anyway with her functioning.) Previous Attempt: No (The patient insists that she does not have a history of intentional self injury. 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.") : No Responsible for Young Children: No Employed: No Stable Relationships: No Supportive Family: Yes (The patient's family has filed a PFA against the patient due to her past behaviors, but it is clear that they remain protective over.) Good Rapport with Provider: No Absence of Any Risk Factors Above: No Interval History Identifying Information ANDREW CYR is a 63-year-old F who has a history of schizoaffective disorder, bipolar type and was admitted on 08/03/19 20:47 on a 302 involuntary commitment after her grandson reported that she had told him that she had very recently threatened to get a gun and shoot herself. 303 granted on 08/08/2019. Chief Complaint "I don't need your support." Review of Systems Notes Constitutional: denied Cardiovascular: denied Respiratory: denied Gastrointestinal: denied Neurological: denied Psychiatric: denies symptoms other than stated above Total of at least 10 systems reviewed, pertinent positives as above and in HPI. Sleep Information Total Hours of Sleep: 10.5 Sleep Comments: pt on q-15 minute checks Meal Information Percent Meal Consumed - Breakfast: 100 Percent Meal Consumed - Lunch: 100 Percent Meal Consumed - Dinner: 100 Nutrition Comment: per meal record Subjective Subjective Patient was seen & assessed and interval progress reviewed with nursing and social work. Staff report the patient had difficulty with meeting with staff yesterday, stating she would not agree to medications or aftercare. Pt is scheduled to have a meeting with her senior case manager this morning. Pt has been compliant with oral medications during her admission. Pt was seen today to assess progress since admission. Assessment was partnered with her case management meeting and [employer] Interpretive device was utilized (two separate calls: Deana - #[id number] and Bisi - #[id number]). Outpatient senior case manager, home health care social worker, and this PA-C were all present for the meeting. Pt begins conversation by stating "I don't need your support." Pt's senior case manager attempted to explain that she was hoping to assist with patient with service that would allow her to succeed outside of the hospital. Pt states "I have a passport, I am a citizen, I have a house, I have medications. I just want to go home." Pt initially denied support stating, "No, I want to do that myself." Pt remains frustrated with being in the hospital, and states "I've been here for over a month." Pt becomes very frustrated, again stating "I want to get out of here. I am finished here, I don't want your help. [facility], F*ck you. Fine." She then leaves the room and begins walking around the unit. Fortunately, the patient did return to the room of her own accord and request to begin another session with the bilingual interpreter. Pt began by again stating her belief that she has a house and is able to provide for herself outside of the hospital. Pt did verbalize she was willing to continue medications, but did not want to receive any additional injections in the hospital - "If it will make me stay longer, I don't want it." We discussed that after receiving her second of two initial injections this morning, she will not be due to receive another during her time here. Pt did verbally agree to her senior case manager communicating with [facility] to discuss outpatient appointments. She also agreed with allowing her senior case manager to contact the patient's brother, stating that he could verify her address - though she is not able to provide her brother's phone number. Pt did make several delusional statements during our visit, reporting having a house and a partner at home. 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 Pt reports a plan to return to [place] eventually, stating she does not need her brother's help - "I go on my own and I come back on my own. I am not a child." Pt did end our second sessions in a much more reasonable mood and was polite with all staff and bilingual interpreter when ending the call. Physical Exam Psychiatric Orientation: alert, oriented to person, oriented to place and + guarded (only intermittently cooperative, otherwise argumentative and angry) Apperance: appropriately dressed, appropriately groomed and appeared stated age Eye Contact: + fair eye contact Motor Behavior: steady gait and station and no abnormal motor movements Speech: normal rate/rhythm/volume of speech (angry tone at times - [employer] Interpretive service utilized) Affect: + tearful affect, + labile affect and + angry affect Mood: + angry mood (frequently yelling, but then also says "I'm not frustrated") Thought Process: goal directed thought process, + perseveration and + concrete thought process Thought Content: + preoccupation (with discharge) and + delusions (believes she has a house and partner, community support - not accurate); no hopelessness Suicidal Thoughts: denies suicidal thoughts Homicidal Thoughts: denies homicidal thoughts Hallucinations: does appear to be responding to internal stimuli at times Cognition: attention grossly intact and language grossly intact (with utilization of [employer] bilingual interpreter ) Insight: + impaired insight Judgement: + impaired judgement Vital Signs (Past 24 Hours) Last Vital Signs Temp 36.8 C 08/17/19 06:42 Pulse 74 08/17/19 06:42 Resp 18 08/17/19 06:42 BP 144/74 H 08/17/19 06:42 Pulse Ox 95 08/03/19 21:25 Results & Data ([facility]) Current Inpatient Medications Current Inpatient Medications: Current Inpatient Medications Acetaminophen (Tylenol) 650 mg PO Q4H PRN PRN Reason: Headache or Minor Fever Stop: 09/02/19 20:46 Last Admin: 08/13/19 12:29 Dose: 650 mg Documented by: Al Hydrox/Mg Hydrox/Simethicone (Maalox) 30 ml PO Q4H PRN PRN Reason: GI Upset Stop: 09/02/19 20:46 Bismuth Subsalicylate (Kaopectate) 15 ml PO PRN PRN PRN Reason: Loose Stool Stop: 09/02/19 20:46 Diphenhydramine HCl (Benadryl Capsule) 50 mg PO BID [facility] Stop: 09/03/19 10:59 Last Admin: 08/17/19 08:20 Dose: 50 mg Documented by: Hydroxyzine HCl (Vistaril) 50 mg PO HSZ PRN PRN Reason: Insomnia Stop: 09/02/19 20:46 Hydroxyzine HCl (Vistaril) 25 mg PO Q4H PRN PRN Reason: Anxiety Stop: 09/02/19 20:46 Levothyroxine Sodium (Synthroid) 75 mcg PO DAILYBB CLARISA Stop: 09/04/19 07:59 Last Admin: 08/17/19 08:22 Dose: 75 mcg Documented by: Yountville Carbonate ([place] Carbonate) 450 mg PO BID [facility] Stop: 09/09/19 08:59 Last Admin: 08/17/19 08:21 Dose: 450 mg Documented by: Loratadine (Claritin) 10 mg PO QAM [facility] Stop: 09/03/19 10:59 Last Admin: 08/17/19 08:21 Dose: 10 mg Documented by: Magnesium Hydroxide (Milk Of Magnesia) 30 ml PO DAILY PRN PRN Reason: Constipation Stop: 09/02/19 20:46 Paliperidone (Invega) [facility] Stop: 09/10/19 08:59 Last Admin: 08/17/19 08:21 Dose: 6 mg Documented by: Pantoprazole Sodium (Protonix) 40 mg PO [facility] Stop: 09/03/19 21:59 Last Admin: 08/16/19 20:56 Dose: 40 mg Documented by: Simethicone (Mylicon) 80 mg PO TID PRN PRN Reason: Gas or Constipation Stop: 09/03/19 13:59 Simvastatin (Zocor) 10 mg PO [facility] Stop: 09/03/19 21:59 Last Admin: 08/16/19 20:56 Dose: 10 mg Documented by: Sodium Chloride ([place] Nasal) 1 - 2 sprays NA PRN PRN PRN Reason: Nasal Dryness/Congestion Stop: 09/02/19 20:46 Mental Health & Subst Abuse Tx Shellfish Bed Worker Name of Shellfish Bed Worker: [facility] Service [facility] Phone Number for Shellfish Bed Worker: [phone] Post Discharge Appointments Contact Information Discharge Phone Number: Unknown Discharge Address: No known address (1) Psychosis Psychosis type: unspecified psychosis type Qualified Code(s): F29 - Unspecified psychosis not due to a substance or known physiological condition
[2019-08-17] MEDS: PANTOprazole 40 MG TAB PO SCH (21:40)
[2019-08-17] MEDS: SIMVASTATIN 10 MG TAB PO SCH (21:41)
[2019-08-18] MEDS: LITHIUM CARBONATE 300 MG TAB PO SCH ×2 (08:53→21:14)
[2019-08-18] MEDS: LEVOTHYROXINE SODIUM 75 MCG TABLET PO SCH (08:53)
[2019-08-18] MEDS: PALIPERIDONE 3 MG TABCR PO SCH (08:53)
[2019-08-18] MEDS: LORATADINE 10 MG TAB PO SCH (08:53)
--- NOTE | 2019-08-18 13:45 | Psychiatric Progress Note ---
Date of Service August 18, 2019 Impression / Recommendations Impression 63-year-old female from [place] who has a history of schizophrenia vs schizoaffective disorder (presumed diagnosis of schizoaffective disorder bipolar type) and was admitted after 2 ER visits in 1 week for psychosis and inability to care for herself. She presented on a 302 commitment following a petition by her grandson stating she told him that she was going to shoot herself with a gun. She was imprisoned for approximately 1 year on charges of making terroristic threats, and was released 07/24, but was not taking medications and was homeless. She had been seen in the emergency room during the previous weekend and released after several days of stable behavior in the ER. [facility] was paying for a hotel room for her, but she left and was sleeping "on the streets" for at least several days, during which time overnight temperatures were below freezing. Reports from community providers are that she has been neglecting self-care, not attending to her personal needs, not taking her medicines, and not eating. She violated the PFA that her family members have against her, going to their place of business on the day of presentation. 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 She is demonstrating paranoia and responding to auditory and visual hallucinations. She is on a 303 as of 08/07, and will require 304. Inpatient treatment is medically necessary as she is severely mentally ill and unable to provide for her own basic needs as a result, and additionally threatened to kill herself as detailed in the 302 petition. Received first dose of Invega Sustenna on 08/12, second provided on 08/16. (1) Noncompliance with medication regimen: 08/04/19 - The patient indicates that she has stopped taking her medicine because the names of the directions for the medications are in German and she cannot read them. She also indicates that she no longer has access to her medications and has not taken any for approximately 5 days. The patient also claims to not recall the names of any of her medications and reports that she does not have the conditions for which her known medications are clearly intended. She also seems not to be oriented to year, and memory deficits on testing suggests that there may be some cognitive impairment as well. -The patient's underlying psychiatric condition will be actively treated. It is hoped that with treatment we will be able to better assess whether the patient can independently manage medications, or if she will need active assistance in this regard when she returns to the community. -She has a history of favorably responding to risperidone. We will start the patient on risperidone M tabs at her reported outpatient recommended dose, and as tolerated we will talk to the patient about converting to a Depo form of risperidone, given her history of medication nonadherence. 08/04 -Has been compliant with lithium and Risperdal in the hospital -reviewed Li 0.2 on 08/03/1908/07 - Would benefit from CANTOR and will explore options once we know where she will get outpatient treatment. Barriers include finances, lack of insurance, homelessness, lack of supports, poor insight. 08/12-reviewed. 08/14 - Pt was started on Invega Sustenna 234mg on 08/13/2019, can receive second injection as soon as 08/17/2019 - Will need to discuss ability to continue the injections with the [facility] and [facility] at tomorrow's discharge planning meeting 08/15 -Patient more irritable, stating she will not take medications or accept further injections. -Discharge planning meeting held with [facility] and [facility]; patient has many barriers to accessing treatment, including lack of valid visa, lack of insurance or funding, [facility]'s unwillingness to provide treatment, and inability to get me dication. She is homeless, has no support from family, and has legal problems. She will need a 304 [facility]. 08/16 - Patient has now completed the initiation series of injections for Invega Sustenna - continue attempts to ensure patient can receive the injections on an outpatient basis (2) Psychosis: 08/04/19 -The patient has been admitted to the locked, secured behavioral health unit and has been placed in special observation room. She is also being monitored with close observations and every 15-minute direct observation. When more stable she will be actively encouraged to participate in individual, group, and activity therapies. We will also attempt to involve the family if the patient permits us to and if they agree. -Although she was given a diagnosis of schizophrenia in the emergency room, the record, and the patient's presentation, is more consistent with a diagnosis of schizoaffective disorder, bipolar type. She has a reported history of responding favorably to risperidone, and, in addition, she had been prescribed lithium carbonate prior to admission. The issue may be nonadherence with these medications, and the first plan is to restart them at risperidone 3 mg in the morning and 4 mg at bedtime (oral dissolving tablets to help assure adherence) and lithium carbonate 300 mg twice a day with a plan to check her lithium level next week. 08/04 -Interview was difficult again today due to apparent paranoia and lability of affect while utilizing full time staff interpreter services. Cannot rule out cognitive dysfunction in addition to psychosis. Appears she was not restarted on AM dose of risperdal yesterday. Will attempt to reconfirm prior home dose before restarting due to higher risk for SE at that dose and increased risk for EPS if titrated too quickly. We will continue to expand database as able. 08/05 -Affect remains odd and suspicious however she has not been overtly agitated or aggressive. -We will add 2 mg morning dose of Risperdal tomorrow working towards home dose of 3 mg in the morning and 4mg at bedtime -Ordered fasting glucose and lipids for a.m. for monitoring on atypical antipsychotic 08/06 -Patient remains psychotic, delusional, unable to come up with a reasonable discharge plan (today states she owns a house in [place] that she just bought, but wants the address and does not know where it is). She denies that her family has a PFA against her or that she has any legal problems. She is not a reliable historian, and we will reach out to her [facility] to try to get additional collateral information. -303 hearing scheduled for tomorrow, will request a discharge planning meeting with the [facility] afterwards. -Continue lithium and risperidone, and explore options for outpatient treatment/obtaining medications given her lack of resources. -Fasting labs reviewed for monitoring on an atypical antipsychotic; glucose 109, cholesterol 221, remainder within normal limits. 08/07 -303 hearing held and granted. Recommend 304 [facility] given her history of treatment noncompliance, lack of insight, frequent hospitalizations, and severity of psychotic symptoms and erratic, unsafe behavior when acutely ps ychotic. -Request records from psychiatric treatment while incarcerated. Patient refused to sign INO for [facility] (where she was referred for outpatient treatment during her 2018 hospitalization here). -Get collateral information from family, as patient reports they were helping her to establish housing. She signed an INO for her grandson who was also the 302 petitioner. -Discharge planning meeting with [facility] Lizzy Pandey. Explore options for housing assistance and OP care (numerous barriers including language, lack of resources/income, citizenship, lack of insurance, poor insight and adherence). -Continue risperidone and increase to 3mg qam and 4mg hs. Explore options for CANTOR (will depend largely on where/how she will access OP care, as no insurance so will have to explore ways to get CANTOR covered). Check w/ [facility] re: ability to supply/administer CANTOR. -Continue lithium and check trough level tomorrow. 08/08 - Pt declines feeling a need to adjust medications - Attempted to discuss subtherapeutic lithium level (0.4) - will offer patient 600mg tonight and continue the 300mg dose each morning - Limited ability to communicate with full time staff interpreter service today, as patient does not speak at a volume loud enough for full time staff interpreter to accurately translate despite many attempts to onsite health coach patient - Awaiting additional communication from [facility] regarding CANTOR options available 08/09 -Titonka dose increased today to 450 mg twice daily; recheck trough level after 5 days (08/15/2019). -Change risperidone to paliperidone, with plan to transition to Invega Sustenna if it is effective and well-tolerated. Sustenna preferred over Risperdal Consta as it can be administered every 4 weeks instead of every 2. She already received her morning dose of risperidone, so will give 3 mg of paliperidone tonight, and 6 mg once daily starting tomorrow. -Patient has now signed releases for [facility] and [facility], so we will request records to clarify previous psychiatric treatment and response. 08/10 - Continue lithium 450mg BID, lithium level scheduled for 08/15/2019 - Continue paliperidone 6mg qAM - ongoing attempts to coordinate with [facility] regarding CANTOR options. Patient's lack of Social Security Number is possibly a barrier to applying for patient assistance programs for medications. Could consider titration of paliperidone to 9mg daily if tolerated. - Meeting between our team, the [facility] and [facility] has been scheduled for 08/15 to discuss aftercare and discharge planning 5/23 - monitor for ongoing improvement on higher dose of Titonka and Invega, will be converted to injectable if means to continue outpatient. 08/12 --Reviewed. Will give first of 2 Invega loading injections today, no clear aftercare plan in place so primary team can determine timing of/need for 2nd injection. At minimum she would have more coverage with medication when leaves the hospital. Ideally she would have discharge instructions/medical laboratory assistant instructions in Swedish. 08/13 - Currently patient seems more restless, not accepting of need for discharge planning and given her history of incarceration I believe this is the cause rather than worsening bipolar. Will monitor. Explained to patient court order (commitment) at this time and need for county meeting. Encouraged her to consider assistance with relocation to a city with more divehi speaking people, like [place] or previous mcfp offered. Plan: lithium level in am, states she won't take PO meds after discharge. 08/14 - Continue current medication regimen - patient can be given second loading dose of Invega Sustenna as early as 08/16 - Titonka level obtained this morning - within therapeutic range at 0.7. Can consider further titration as indicated. - Electrolytes obtained with AM blood work as well. Sodium level is slightly low at 135; all other values were WNL - Pt continues to be preoccupied with discharge, but is able to verbalize desire to continue medications as prescribed on an outpatient basis - Discharge planning meeting is scheduled for tomorrow with the [facility] and [facility] 08/15 -Discharge planning meeting: No current outpatient treatment options, unwilling to accept assistance to complete visa or [place] applications, no way to get medications and no outpatient clinicians available. -Remains unwilling to explore options for mcfp/housing. -File for 304 hearing to be held next week. 08/16 - Meeting held today with patient's CM and social security assessor - patient provided verbal permission to work with CM while in the hospital and to allow her to coordinate with [facility] and the patient's brother - We continue to explore possible options for ongoing Invega Sustenna injections - patient did receive her second initiation injection today - 304 hearing scheduled for 08/20 at 10:00 08/17 - (3) Homeless: 08/04/19 -Until recently, the patient reportedly had been living in a motel room and a "[employer]" motel in [place]. This accommodation was provided through a [employer] organization known as [facility] [employer] [facility]." However, this organization has notified us today that they were only able to provide accommodations during cold weather seasons and that, accordingly, they will not be able to provide accommodations over the balance of the spring, summer, and early derian. -In the past, the patient is live with family members. However, this is clearly not an option at the present time. The context is that the patient reportedly was in longterm for approximately a year because of her making terroristic threats against the family. While it does seem clear that the family wants to help protect her, they are unable to safely provide mcfp. Given the patient's history of neglect of self-care, medication nonadherence, and possible cognitive deficits we are going to investigate structured residential programs as part of our discharge planning. 08/09 -Outpatient piano case and bench assembler reports that 2 shelters with bilingual staff were identified prior to the patient leaving [facility] -[facility] and [facility] in [place]. She remains unwilling to explore housing options, expressing a delusion that she owns a home locally that she can return to. She also believes that her family is living in her home and preventing her from using it. Her outpatient piano case and bench assembler reports there is an active PFA against the patient from her family, which limits our ability to involve them in treatment. She also reports that the Department of [employer] and [facility] were both notified of the patient's illegal status in this country, but declined to deport her to [place]. 08/10 - Pt continues to verbalize anticipated discharge plans that cannot be confirmed and communication is limited by patient's refusal and PFAs against various family members. - Pt now stating that she is planning to live with her mother in [place] and that she will be picking her up on discharge - patient also admits that she has had no communication with her mother since her admission. 08/12 Reviewed. Inventory Assets Strengths: Agrees to take medications. Basically cooperative with treatment. Pleasant on approach. Concerned family members. Needs: Resolution of psychotic features. Medication adherence. Stable living environment. Risk Factors Assessment Male: No : No Do You Have Access To A Gun?: No Health Problems: Yes Mental Health Diagnoses: Yes Substance Use Disorders: Yes (Patient makes reference to smoking marijuana, but does not clear if this is something that is done regularly or if it interferes anyway with her functioning.) Previous Attempt: No (The patient insists that she does not have a history of intentional self injury. 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.") : No Responsible for Young Children: No Employed: No Stable Relationships: No Supportive Family: Yes (The patient's family has filed a PFA against the patient due to her past behaviors, but it is clear that they remain protective over.) Good Rapport with Provider: No Absence of Any Risk Factors Above: No Interval History Identifying Information ANDREW CYR is a 63-year-old F who has a history of schizoaffective disorder, bipolar type and was admitted on 08/03/19 20:47 on a 302 involuntary commitment after her grandson reported that she had told him that she had very recently thr eatened to get a gun and shoot herself. 303 granted on 08/08/2019. Chief Complaint "You can give me the address, date, time - I will attend the appointment." Review of Systems Notes Pt did not verbalize any physical concerns presently. Sleep Information Total Hours of Sleep: 5 Sleep Comments: pt on q-15 minute checks Meal Information Percent Meal Consumed - Breakfast: 100 Percent Meal Consumed - Lunch: 100 Percent Meal Consumed - Dinner: 100 Nutrition Comment: per meal record Subjective Subjective Patient was seen & assessed and interval progress reviewed with treatment team. Staff report the patient has an additional meeting scheduled with her piano case and bench assembler this afternoon to continue discussion on discharge planning. Home-Account full time staff interpreter device was utilized, though two separate calls had to be conducted as patient stormed out of the room repeatedly (Roxann - #[id number] and Beatrice - #[id number]). Conversation was held with our [facility] social security assessor and patient's piano case and bench assembler. Pt was initially cooperative with the conversation. She did clearly verbalize that she would be willing to attend appointments at [facility] - stating "you can give me the address, date, time - I will attend the appointment." When informed that her piano case and bench assembler would meet her at the appointment, she states "I don't want anyone else there." When staff attempted to reinforce the purpose of outpatient supports, she states "what is it with you and me? You are harassing me. I've been paying attention and you don't harass any other patients like you harass me." Pt continued to complain about visitor restrictions, stating she wants her brother to visit her. Pt was informed again of the PFA her entire family has against her, but continued to verbalize that she wanted us to call her brother. When patient was asked to provide the information on where she lives, she states "You're trying to trick me into giving you my address. Why?" When attempts were made to provide the patient with the answer, she becomes rather upset and storms out of the room. Pt completed a lap around the unit and then returned, requesting to speak again. Pt states that "I live alone with my mother, I don't need anything else." When asked how she would attend appointments at [facility], the patient states that she has a car and would not need the bus. She also states she would not need an full time staff interpreter and that she would figure it out. Pt frequently requests discharge, even asking if she should call the police in order to be released. Pt at one point says, "you should not rely on what the President or Joseline has to say, they do not control this." Pt was intermittently observed to be looking away from staff and the iPad and muttering under her breath - unfortunately not loudly enough for her words to be translated. Pt stated "what was I thinking when I decided to come t this hospital?" Shortly after she abruptly left the meeting again and did not return for further discussion. Physical Exam Psychiatric Orientation: alert, oriented to person, oriented to place and + guarded (uncooperative and argumentative) Apperance: appropriately dressed, appropriately groomed and appeared stated age Eye Contact: + fair eye contact Motor Behavior: + psychomotor agitation (appearing restless at times, pacing between calls) Speech: + abnormal rate/rhythm/volume of speech (irritable tone, yelling at times) Affect: + tearful affect and + irritable affect; + mood not congruent with affect Mood: patient frequently states "I am not angry, I am not frustrated" Thought Process: goal directed thought process and + concrete thought process; + thought process not linear or logical Thought Content: + preoccupation, + paranoid, + delusions and + persecution Suicidal Thoughts: denies suicidal thoughts Homicidal Thoughts: denies homicidal thoughts Cognition: attention grossly intact and language grossly intact Insight: + impaired insight Judgement: + impaired judgement Vital Signs (Past 24 Hours) Last Vital Signs Temp 36.7 C 08/18/19 06:26 Pulse 77 08/18/19 06:27 Resp 18 08/18/19 06:26 BP 125/76 08/18/19 06:27 Pulse Ox 95 08/03/19 21:25 Results & Data ([facility]) Current Inpatient Medications Current Inpatient Medications: Current Inpatient Medications Acetaminophen (Tylenol) 650 mg PO Q4H PRN PRN Reason: Headache or Minor Fever Stop: 09/02/19 20:46 Last Admin: 08/13/19 12:29 Dose: 650 mg Documented by: Al Hydrox/Mg Hydrox/Simethicone (Maalox) 30 ml PO Q4H PRN PRN Reason: GI Upset Stop: 09/02/19 20:46 Bismuth Subsalicylate (Kaopectate) 15 ml PO PRN PRN PRN Reason: Loose Stool Stop: 09/02/19 20:46 Diphenhydramine HCl (Benadryl Capsule) 50 mg PO BID [facility] Stop: 09/03/19 10:59 Last Admin: 08/18/19 08:53 Dose: 50 mg Documented by: Hydroxyzine HCl (Vistaril) 50 mg PO HSZ PRN PRN Reason: Insomnia Stop: 09/02/19 20:46 Hydroxyzine HCl (Vistaril) 25 mg PO Q4H PRN PRN Reason: Anxiety Stop: 09/02/19 20:46 Levothyroxine Sodium (Synthroid) 75 mcg PO DAILYBB [facility] Stop: 09/04/19 07:59 Last Admin: 08/18/19 08:53 Dose: 75 mcg Documented by: Titonka Carbonate (Titonka Carbonate) 450 mg PO BID CL[facility]ISA Stop: 09/09/19 08:59 Last Admin: 08/18/19 08:53 Dose: 450 mg Documented by: Loratadine (Claritin) 10 mg PO QAM CL[facility]ISA Stop: 09/03/19 10:59 Last Admin: 08/18/19 08:53 Dose: 10 mg Documented by: Magnesium Hydroxide (Milk Of Magnesia) 30 ml PO DAILY PRN PRN Reason: Constipation Stop: 09/02/19 20:46 Paliperidone (Invega) 6 mg PO QAM [facility] Stop: 09/10/19 08:59 Last Admin: 08/18/19 08:53 Dose: 6 mg Documented by: Pantoprazole Sodium (Protonix) 40 mg PO HS [facility] Stop: 09/03/19 21:59 Last Admin: 08/17/19 21:40 Dose: 40 mg Documented by: Simethicone (Mylicon) 80 mg PO TID PRN PRN Reason: Gas or Constipation Stop: 09/03/19 13:59 Simvastatin (Zocor) 10 mg PO HS [facility] Stop: 09/03/19 21:59 Last Admin: 08/17/19 21:41 Dose: 10 mg Documented by: Sodium Chloride ([place] Nasal) 1 - 2 sprays NA PRN PRN PRN Reason: Nasal Dryness/Congestion Stop: 09/02/19 20:46 Mental Health & Subst Abuse Tx Wildlife Biology Technician Name of Wildlife Biology Technician: [facility] Service [facility] Lizzy Phone Number for Wildlife Biology Technician: [phone] Post Discharge Appointments Contact Information Discharge Phone Number: Unknown Discharge Address: No known address (1) Psychosis Psychosis type: unspecified psychosis type Qualified Code(s): F29 - Unspecified psychosis not due to a substance or known physiological condition
[2019-08-18] MEDS: PANTOprazole 40 MG TAB PO SCH (21:14)
[2019-08-18] MEDS: SIMVASTATIN 10 MG TAB PO SCH (21:15)
--- NOTE | 2019-08-19 06:57 | Psychiatric Progress Note ---
Date of Service August 19, 2019 Impression / Recommendations Impression 63-year-old female from [place] who has a history of schizophrenia vs schizoaffective disorder (presumed diagnosis of schizoaffective disorder bipolar type) and was admitted after 2 ER visits in 1 week for psychosis and inability to care for herself. She presented on a 302 commitment following a petition by her grandson stating she told him that she was going to shoot herself with a gun. She was imprisoned for approximately 1 year on charges of making terroristic threats, and was released 07/24, but was not taking medications and was homeless. She had been seen in the emergency room during the previous weekend and released after several days of stable behavior in the ER. [employer] was paying for a hotel room for her, but she left and was sleeping "on the streets" for at least several days, during which time overnight temperatures were below freezing. Reports from community providers are that she has been neglecting self-care, not attending to her personal needs, not taking her medicines, and not eating. She violated the PFA that her family members have against her, going to their place of business on the day of presentation. She is paranoid, delusional (believes she bought a [employer] 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 She is demonstrating paranoia and responding to auditory and visual hallucinations. She is on a 303 as of 08/07, and a 304 is scheduled for 08/20. Inpatient treatment is medically necessary as she is s everely mentally ill and unable to provide for her own basic needs as a result, and additionally threatened to kill herself as detailed in the 302 petition. Received first dose of Invega Sustenna on 08/12, second provided on 08/16. (1) Noncompliance with medication regimen: 08/04/19 - The patient indicates that she has stopped taking her medicine because the names of the directions for the medications are in Ukrainian and she cannot read them. She also indicates that she no longer has access to her medications and has not taken any for approximately 5 days. The patient also claims to not recall the names of any of her medications and reports that she does not have the conditions for which her known medications are clearly intended. She also seems not to be oriented to year, and memory deficits on testing suggests that there may be some cognitive impairment as well. -The patient's underlying psychiatric condition will be actively treated. It is hoped that with treatment we will be able to better assess whether the patient can independently manage medications, or if she will need active assistance in this regard when she returns to the community. -She has a history of favorably responding to risperidone. We will start the patient on risperidone M tabs at her reported outpatient recommended dose, and as tolerated we will talk to the patient about converting to a Depo form of risperidone, given her history of medication nonadherence. 08/04 -Has been compliant with lithium and Risperdal in the hospital -reviewed Li 0.2 on 08/03/1908/07 - Would benefit from CANTOR and will explore options once we know where she will get outpatient treatment. Barriers include finances, lack of insurance, homelessness, lack of supports, poor insight. 08/12-reviewed. 08/14 - Pt was started on Invega Sustenna 234mg on 08/13/2019, can receive second injection as soon as 08/17/2019 - Will need to discuss ability to continue the injections with the [facility] and [facility] at tomorrow's discharge planning meeting 08/15 -Patient more irritable, stating she will not take medications or accept further injections. -Discharge planning meeting held with [facility] and [facility]; patient has many barriers to accessing treatment, including lack of valid visa, lack of insurance or funding, county's unwillingness to provide treatment, and inability to get medication. She is homeless, has no support from family, and has legal problems. She will need a 304 [facility]. 08/16 - Patient has now completed the initiation series of injections for Invega Sustenna - continue attempts to ensure patient can receive the injections on an outpatient basis (2) Psychosis: 08/04/19 -The patient has been admitted to the locked, secured behavioral health unit and has been placed in special observation room. She is also being monitored with close observations and every 15-minute direct observation. When more stable she will be actively encouraged to participate in individual, group, and activity therapies. We will also attempt to involve the family if the patient permits us to and if they agree. -Although she was given a diagnosis of schizophrenia in the emergency room, the record, and the patient's presentation, is more consistent with a diagnosis of schizoaffective disorder, bipolar type. She has a reported history of responding favorably to risperidone, and, in addition, she had been prescribed lithium carbonate prior to admission. The issue may be nonadherence with these medications, and the first plan is to restart them at risperidone 3 mg in the morning and 4 mg at bedtime (oral dissolving tablets to help assure adherence) and lithium carbonate 300 mg twice a day with a plan to check her lithium level next week. 08/04 -Interview was difficult again today due to apparent paranoia and lability of affect while utilizing director of online education services. Cannot rule out cognitive dysfunction in addition to psychosis. Appears she was not restarted on AM dose of risperdal yesterday. Will attempt to reconfirm prior home dose before restarting due to higher risk for SE at that dose and increased risk for EPS if titrated too quickly. We will continue to expand database as able. 08/05 -Affect remains odd and suspicious however she has not been overtly agitated or aggressive. -We will add 2 mg morning dose of Risperdal tomorrow working towards home dose of 3 mg in the morning and 4mg at bedtime -Ordered fasting glucose and lipids for a.m. for monitoring on atypical antipsychotic 08/06 -Patient remains psychotic, delusional, unable to come up with a reasonable discharge plan (today states she owns a house in [place] that she just bought, but wants the address and does not know where it is). She denies that her family has a PFA against her or that she has any legal problems. She is not a reliable historian, and we will reach out to her [facility] to try to get additional collateral information. -303 hearing scheduled for tomorrow, will request a discharge planning meeting with the our community hospital afterwards. -Continue lithium and risperidone, and explore options for outpatient ceci tment/obtaining medications given her lack of resources. -Fasting labs reviewed for monitoring on an atypical antipsychotic; glucose 109, cholesterol 221, remainder within normal limits. 08/07 -303 hearing held and granted. Recommend 304 [facility] given her history of treatment noncompliance, lack of insight, frequent hospitalizations, and severity of psychotic symptoms and erratic, unsafe behavior when acutely psychotic. -Request records from psychiatric treatment while incarcerated. Patient refused to sign INO for [facility] (where she was referred for outpatient treatment during her 2018 hospitalization here). -Get collateral information from family, as patient reports they were helping her to establish housing. She signed an INO for her grandson who was also the 302 petitioner. -Discharge planning meeting with [facility] Lizzy Pandey. Explore options for housing assistance and OP care (numerous barriers including language, lack of resources/income, citizenship, lack of insurance, poor insight and adherence). -Continue risperidone and increase to 3mg qam and 4mg hs. Explore options for CANTOR (will depend largely on where/how she will access OP care, as no insurance so will have to explore ways to get CANTOR covered). Check w/ [facility] re: ability to supply/administer CANTOR. -Continue lithium and check trough level tomorrow. 08/08 - Pt declines feeling a need to adjust medications - Attempted to discuss subtherapeutic lithium level (0.4) - will offer patient 600mg tonight and continue the 300mg dose each morning - Limited ability to communicate with director of online education service today, as patient does not speak at a volume loud enough for director of online education to accurately translate despite many attempts to classroom technology coach patient - Awaiting additional communication from [facility] regarding CANTOR options available 08/09 -Sweeny dose increased today to 450 mg twice daily; recheck trough level after 5 days (08/15/2019). -Change risperidone to paliperidone, with plan to transition to Invega Sustenna if it is effective and well-tolerated. Sustenna preferred over Risperdal Consta as it can be administered every 4 weeks instead of every 2. She already received her morning dose of risperidone, so will give 3 mg of paliperidone tonight, and 6 mg once daily starting tomorrow. -Patient has now signed releases for [facility] and [facility], so we will request records to clarify previous psychiatric treatment and response. 08/10 - Continue lithium 450mg BID, lithium level scheduled for 08/15/2019 - Continue paliperidone 6mg qAM - ongoing attempts to coordinate with [facility] regarding CANTOR options. Patient's lack of Social Security Number is possibly a barrier to applying for patient assistance programs for medications. Could consider titration of paliperidone to 9mg daily if tolerated. - Meeting between our team, the [facility] and [facility] has been scheduled for 08/15 to discuss aftercare and discharge planning 08/11 - monitor for ongoing improvement on higher dose of Sweeny and Invega, will be converted to injectable if means to continue outpatient. 08/12 --Reviewed. Will give first of 2 Invega loading injections today, no clear aftercare plan in place so primary team can determine timing of/need for 2nd injection. At minimum she would have more coverage with medication when leaves the hospital. Ideally she would have discharge instructions/medart operator instructions in [place]. 08/13 - Currently patient seems more restless, not accepting of need for discharge planning and given her history of incarceration I believe this is the cause rather than worsening bipolar. Will monitor. Explained to patient court order (commitment) at this time and need for county meeting. Encouraged her to consider assistance with relocation to a city with more andorran speaking people, like [place] or previous halfway offered. Plan: lithium level in am, states she won't take PO meds after discharge. 08/14 - Continue current medication regimen - patient can be given second loading dose of Invega Sustenna as early as 08/16 - Sweeny level obtained this morning - within therapeutic range at 0.7. Can consider further titration as indicated. - Electrolytes obtained with AM blood work as well. Sodium level is slightly low at 135; all other values were WNL - Pt continues to be preoccupied with discharge, but is able to verbalize desire to continue medications as prescribed on an outpatient basis - Discharge planning meeting is scheduled for tomorrow with the [facility] and [facility] 08/15 -Discharge planning meeting: No current outpatient treatment options, unwilling to accept assistance to complete visa or [place] applications, no way to get medications and no outpatient clinicians available. -Remains unwilling to explore options for halfway/housing. -File for 304 hearing to be held next week. 08/16 - Meeting held today with patient's CM and social work associate - patient provided verbal permission to work with CM while in the hospital and to allow her to coordinate with [facility] and the patient's brother - We continue to explore possible options for ongoing Invega Sustenna injections - patient did receive her second initiation injection today - 304 hearing scheduled for 08/20 at 10:00 08/17 - Continue PO Invega given severity of psychosis and fact that she is tolerating it well. (3) Homeless: 08/04/19 -Until recently, the patient reportedly had been living in a motel room and a "[employer]" motel in [place]. This accommodation was provided through a local benevolent organization known as "[employer]." However, this organization has notified us today that they were only able to provide accommodations during cold weather seasons and that, accordingly, they will not be able to provide accommodations over the balance of the spring, summer, and early derian. -In the past, the patient is live with family members. However, this is clearly not an option at the present time. The context is that the patient reportedly was in residential for approximately a year because of her making terroristic threats against the family. While it does seem clear that the family wants to help protect her, they are unable to safely provide halfway. Given the patient's history of neglect of self-care, medication nonadherence, and possible cognitive deficits we are going to investigate structured residential programs as part of our discharge planning. 08/09 -Outpatient watch caser reports that 2 shelters with bilingual staff were identified prior to the patient leaving alf -[facility] and [facility] in [place]. She remains unwilling to explore housing options, expressing a delusion that she owns a home locally that she can return to. She also believes that her family is living in her home and preventing her from using it. Her outpatient watch caser reports there is an active PFA against the patient from her family, which limits our ability to involve them in treatment. She also reports that the Department of [employer] and [facility] were both notified of the patient's illegal status in this country, but declined to deport her to [place]. 08/10 - Pt continues to verbalize anticipated discharge plans that cannot be confirmed and communication is limited by patient's refusal and PFAs against various family members. - Pt now stating that she is planning to live with her mother in [place] and that she will be picking her up on discharge - patient also admits that she has had no communication with her mother since her admission. 08/18 -Patient continues to refuse assistance with housing, insisting she owns a house and in fact "many houses," and gave us an address that is not real Inventory Assets Strengths: Agrees to take medications. Basically cooperative with treatment. Pleasant on approach. Concerned family members. Needs: Resolution of psychotic features. Medication adherence. Stable living environment. Risk Factors Assessment Male: No : No Do You Have Access To A Gun?: No Health Problems: Yes Mental Health Diagnoses: Yes Substance Use Disorders: Yes (Patient makes reference to smoking marijuana, but does not clear if this is something that is done regularly or if it interferes anyway with her functioning.) Previous Attempt: No (The patient insists that she does not have a history of intentional self injury. 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.") : No Responsible for Young Children: No Employed: No Stable Relationships: No Supportive Family: Yes (The patient's family has filed a PFA against the patient due to her past behaviors, but it is clear that they remain protective over.) Good Rapport with Provider: No Absence of Any Risk Factors Above: No Interval History Identifying Information ANDREW CYR is a 63-year-old F who has a history of schizoaffective disorder, bipolar type and was admitted on 08/03/19 20:47 on a 302 involuntary commitment after her grandson reported that she had told him that she had very recently threatened to get a gun and shoot herself. 303 granted on 08/08/2019, and 304 scheduled for 08/21/2019. Chief Complaint " Fine thank you". Review of Systems Sleep Information Total Hours of Sleep: 8.25 Sleep Comments: pt on q-15 minute checks Meal Information Percent Meal Consumed - Breakfast: 100 Percent Meal Consumed - Lunch: 100 Percent Meal Consumed - Dinner: 100 Nutrition Comment: per meal record Subjective Subjective Patient was seen & assessed and interval progress reviewed with nursing and social work. Staff report her [facility] was contacted and reported that ICE is aware patient is here illegally, and the agent assigned to case said nothing could be done right now due to COVID. The patient continues to refuse to cooperate with completing paperwork for a Visa or medical assistance, which limits her access to services in the community. The county is exploring ability to get treatment at [facility], but there is still no identified way to get her medication or housing. On my assessment, she was seen with director of online education #[id number]. She states her mood is "good," and answers "fine" or "good" to most questions. When asked what she has been working on here, she says "nothing." She says the meeting with her watch caser was "fine," and that they are working on "medication." She struggles to get more detailed information when asked. She is agreeing to outpatient care, but cannot relate the details of what was discussed as far as her options, or what she would need to do to access care. She continues to say she has a named Teddy, today says that he is in [place], and cannot recall when she last spoke to him. She says she does not know if or when she will go back to [place], saying "maybe." She continues to insist that she owns a home in [place], says she bought it a month ago, and that she knows how to get there, but does not know the address and cannot describe where it is. She becomes increasingly agitated and angry and asking questions about her house, stating "I'm not going to stand for this," insisting that she owns a home, and later stating she has "many houses." Reflected that she was homeless prior to admission, staying in a hotel and on the streets, which she disputes. She says that she is able to get the address, and will let us know. After the interview was terminated, she was observed in her room, laughing and talking animatedly to herself, and then approached the nursing station stating she had the address, which she had written on a piece of paper as "[address] Attempted to find a [place] address using [employer], but was unable to locate one. Physical Exam Psychiatric Orientation: alert and cooperative (Partially, limited historian, gives short, vague answers) Apperance: appropriately dressed and appeared stated age Overweight, fair hygiene Eye Contact: + fair eye contact Motor Behavior: steady gait and station and no abnormal motor movements Angry, loud at times when discussing the location of her house. Speaks in [place] Affect: + labile affect; + mood not congruent with affect Initially pleasant, became agitated and angry when discussing where she will live after discharge "Fine." Thought Process: + thought process not linear or logical and + thought process not clear or coherent Thought Content: + delusions (That she owns a home in [place], and many houses, that she is not homeless) Suicidal Thoughts: denies suicidal thoughts Homicidal Thoughts: denies homicidal thoughts Patient denies hallucinations, but is observed responding to unseen others. Cognition: + recent memory not intact and + attention not intact Insight: + impaired insight Judgement: + impaired judgement Vital Signs (Past 24 Hours) Last Vital Signs Temp 37 C 08/18/19 20:00 Pulse 77 08/18/19 06:27 Resp 18 08/18/19 06:26 BP 125/76 08/18/19 06:27 Pulse Ox 95 08/03/19 21:25 Results & Data ([facility]) Current Inpatient Medications Current Inpatient Medications: Current Inpatient Medications Acetaminophen (Tylenol) 650 mg PO Q4H PRN PRN Reason: Headache or Minor Fever Stop: 09/02/19 20:46 Last Admin: 08/13/19 12:29 Dose: 650 mg Documented by: Al Hydrox/Mg Hydrox/Simethicone (Maalox) 30 ml PO Q4H PRN PRN Reason: GI Upset Stop: 09/02/19 20:46 Bismuth Subsalicylate (Kaopectate) 15 ml PO PRN PRN PRN Reason: Loose Stool Stop: 09/02/19 20:46 Diphenhydramine HCl (Benadryl Capsule) 50 mg PO BID [facility] Stop: 09/03/19 10:59 Last Admin: 08/18/19 21:13 Dose: 50 mg Documented by: Hydroxyzine HCl (Vistaril) 50 mg PO HSZ PRN PRN Reason: Insomnia Stop: 09/02/19 20:46 Hydroxyzine HCl (Vistaril) 25 mg PO Q4H PRN PRN Reason: Anxiety Stop: 09/02/19 20:46 Levothyroxine Sodium (Synthroid) 75 mcg PO DAILYBB [facility] Stop: 09/04/19 07:59 Last Admin: 08/18/19 08:53 Dose: 75 mcg Documented by: Sweeny Carbonate (Sweeny Carbonate) 450 mg PO BID [facility] Stop: 09/09/19 08:59 Last Admin: 08/18/19 21:14 Dose: 450 mg Documented by: Loratadine (Claritin) 10 mg PO QAM [facility] Stop: 09/03/19 10:59 Last Admin: 08/18/19 08:53 Dose: 10 mg Documented by: Magnesium Hydroxide (Milk Of Magnesia) 30 ml PO DAILY PRN PRN Reason: Constipation Stop: 09/02/19 20:46 Paliperidone (Invega) 6 mg PO QAM [facility] Stop: 09/10/19 08:59 Last Admin: 08/18/19 08:53 Dose: 6 mg Documented by: Pantoprazole Sodium (Protonix) 40 mg PO HS [facility] Stop: 09/03/19 21:59 Last Admin: 08/18/19 21:14 Dose: 40 mg Documented by: Simethicone (Mylicon) 80 mg PO TID PRN PRN Reason: Gas or Constipation Stop: 09/03/19 13:59 Simvastatin (Zocor) 10 mg PO [facility] Stop: 09/03/19 21:59 Last Admin: 08/18/19 21:15 Dose: 10 mg Documented by: Sodium Chloride (Cloud Nasal) 1 - 2 sprays NA PRN PRN PRN Reason: Nasal Dryness/Congestion Stop: 09/02/19 20:46 Mental Health & Subst Abuse Tx Psychiatrist Name of Psychiatrist: Jackelin Psychiatrist's Psychiatric Appointment Comment: [id number] [place] [address] [employer] Operator Name of [employer] Operator: [facility] Lizzy Phone Number for [employer] Operator: [phone] Post Discharge Appointments Contact Information Discharge Phone Number: Unknown Discharge Address: No known address (1) Psychosis Psychosis type: unspecified psychosis type Qualified Code(s): F29 - Unspecified psychosis not due to a substance or known physiological condition
[2019-08-19] MEDS: LEVOTHYROXINE SODIUM 75 MCG TABLET PO SCH (08:39)
[2019-08-19] MEDS: LITHIUM CARBONATE 300 MG TAB PO SCH ×2 (08:43→21:40)
[2019-08-19] MEDS: LORATADINE 10 MG TAB PO SCH (08:43)
[2019-08-19] MEDS: PALIPERIDONE 3 MG TABCR PO SCH (08:43)
[2019-08-19] MEDS: SIMVASTATIN 10 MG TAB PO SCH (21:40)
[2019-08-19] MEDS: PANTOprazole 40 MG TAB PO SCH (21:41)
--- NOTE | 2019-08-20 07:04 | Psychiatric Progress Note ---
Date of Service August 20, 2019 Impression / Recommendations Impression 63-year-old female from [place] who has a history of schizophrenia vs schizoaffective disorder (presumed diagnosis of schizoaffective disorder bipolar type) and was admitted after 2 ER visits in 1 week for psychosis and inability to care for herself. She presented on a 302 commitment following a petition by her grandson stating she told him that she was going to shoot herself with a gun. She was imprisoned for approximately 1 year on charges of making terroristic threats, and was released 07/24, but was not taking medications and was homeless. She had been seen in the emergency room during the previous weekend and released after several days of stable behavior in the ER. [employer] was paying for a hotel room for her, but she left and was sleeping "on the streets" for at least several days, during which time overnight temperatures were below freezing. Reports from community providers are that she has been neglecting self-care, not attending to her personal needs, not taking her medicines, and not eating. She violated the PFA that her family members have against her, going to their place of business on the day of presentation. 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 She is demonstrating paranoia and responding to auditory and visual hallucinations. She is on a 303 as of 08/07, and a 304 is scheduled for 08/20. Inpatient treatment is medically necessary as she is s everely mentally ill and unable to provide for her own basic needs as a result, and additionally threatened to kill herself as detailed in the 302 petition. Received first dose of Invega Sustenna on 08/12, second provided on 08/16. (1) Schizophrenia: 08/04/19 -The patient has been admitted to the locked, secured behavioral health unit and has been placed in special observation room. She is also being monitored with close observations and every 15-minute direct observation. When more stable she will be actively encouraged to participate in individual, group, and activity therapies. We will also attempt to involve the family if the patient permits us to and if they agree. -Although she was given a diagnosis of schizophrenia in the emergency room, the record, and the patient's presentation, is more consistent with a diagnosis of schizoaffective disorder, bipolar type. She has a reported history of responding favorably to risperidone, and, in addition, she had been prescribed lithium carbonate prior to admission. The issue may be nonadherence with these medications, and the first plan is to restart them at risperidone 3 mg in the morning and 4 mg at bedtime (oral dissolving tablets to help assure adherence) and lithium carbonate 300 mg twice a day with a plan to check her lithium level next week. 08/04 -Interview was difficult again today due to apparent paranoia and lability of affect while utilizing dry wall sprayer services. Cannot rule out cognitive dysfunction in addition to psychosis. Appears she was not restarted on AM dose of risperdal yesterday. Will attempt to reconfirm prior home dose before restarting due to higher risk for SE at that dose and increased risk for EPS if titrated too quickly. We will continue to expand database as able. 08/05 -Affect remains odd and suspicious however she has not been overtly agitated or aggressive. -We will add 2 mg morning dose of Risperdal tomorrow working towards home dose of 3 mg in the morning and 4mg at bedtime -Ordered fasting glucose and lipids for a.m. for monitoring on atypical antipsychotic 08/06 -Patient remains psychotic, delusional, unable to come up with a reasonable discharge plan (today states she owns a house in [place] that she just bought, but wants the address and does not know where it is). She denies that her family has a PFA against her or that she has any legal problems. She is not a reliable historian, and we will reach out to her [facility] to try to get additional collateral information. -303 hearing scheduled for tomorrow, will request a discharge planning meeting with the [facility] afterwards. -Continue lithium and risperidone, and explore options for outpatient treatment/obtaining medications given her lack of resources. -Fasting labs reviewed for monitoring on an atypical antipsychotic; glucose 109, cholesterol 221, remainder within normal limits. 08/07 -303 hearing held and granted. Recommend 304 IO given her history of treatment noncompliance, lack of insight, frequent hospitalizations, and severity of psychotic symptoms and erratic, unsafe behavior when acutely psychotic. -Request records from psychiatric treatment while incarcerated. Patient refused to sign INO for [facility] (where she was referred for outpatient treatment during her 2018 hospitalization here). -Get collateral information from family, as patient reports they were helping her to establish housing. She signed an INO for her grandson who was also the 302 petitioner. -Discharge planning meeting with [facility] Lizzy Pandey. [facility] (numerous barriers including language, lack of resources/income, citizenship, lack of insurance, poor insight and adherence). -Continue risperidone and increase to 3mg qam and 4mg hs. Explore options for CANTOR (will depend largely on where/how she will access OP care, as no insurance so will have to explore ways to get CANTOR covered). Check w/ CV re: ability to supply/administer CANTOR. -Continue lithium and check trough level tomorrow. 08/08 - Pt declines feeling a need to adjust medications - Attempted to discuss subtherapeutic lithium level (0.4) - will offer patien t 600mg tonight and continue the 300mg dose each morning - Limited ability to communicate with dry wall sprayer service today, as patient does not speak at a volume loud enough for dry wall sprayer to accurately translate despite many attempts to assistant women's basketball coach patient - Awaiting additional communication from [facility] regarding CANTOR options available 08/09 -Kenbridge dose increased today to 450 mg twice daily; recheck trough level after 5 days (08/15/2019). -Change risperidone to paliperidone, with plan to transition to Invega Sustenna if it is effective and well-tolerated. Sustenna preferred over Risperdal Consta as it can be administered every 4 weeks instead of every 2. She already received her morning dose of risperidone, so will give 3 mg of paliperidone tonight, and 6 mg once daily starting tomorrow. -Patient has now signed releases for [facility] and [facility], so we will request records to clarify previous psychiatric treatment and response. 08/10 - Continue lithium 450mg BID, lithium level scheduled for 08/15/2019 - Continue paliperidone 6mg qAM - ongoing attempts to coordinate with [facility] regarding CANTOR options. Patient's lack of Social Security Number is possibly a barrier to applying for patient assistance programs for medications. Could consider titration of paliperidone to 9mg daily if tolerated. - Meeting between our team, the [facility]SU and [facility] has been scheduled for 08/15 to discuss aftercare and discharge planning 08/11 - monitor for ongoing improvement on higher dose of Kenbridge and Invega, will be converted to injectable if means to continue outpatient. 08/12 --Reviewed. Will give first of 2 Invega loading injections today, no clear aftercare plan in place so primary team can determine timing of/need for 2nd injection. At minimum she would have more coverage with medication when leaves the hospital. Ideally she would have discharge instructions/unarmed security officer instructions in Taiwanese. 08/13 - Currently patient seems more restless, not accepting of need for discharge planning and given her history of incarceration I believe this is the cause rather than worsening bipolar. Will monitor. Explained to patient court order (commitment) at this time and need for county meeting. Encouraged her to consider assistance with relocation to a city with more [place] speaking people, like [place] or previous care home offered. Plan: lithium level in am, states she won't take PO meds after discharge. 08/14 - Continue current medication regimen - patient can be given second loading dose of Invega Sustenna as early as 08/16 - Kenbridge level obtained this morning - within therapeutic range at 0.7. Can consider further titration as indicated. - Electrolytes obtained with AM blood work as well. Sodium level is slightly low at 135; all other values were WNL - Pt continues to be preoccupied with discharge, but is able to verbalize desire to continue medications as prescribed on an outpatient basis - Discharge planning meeting is scheduled for tomorrow with the [facility]SU and [facility] 08/15 -Discharge planning meeting: No current outpatient treatment options, unwilling to accept assistance to complete visa or [place] applications, no way to get medications and no outpatient clinicians available. -Remains unwilling to explore options for care home/housing. -File for 304 hearing to be held next week. 08/16 - Meeting held today with patient's CM and social and political studies professor - patient provided verbal permission to work with CM while in the hospital and to allow her to coordinate with [facility] and the patient's brother - We continue to explore possible options for ongoing Invega Sustenna injections - patient did receive her second initiation injection today - 304 hearing scheduled for 08/20 at 10:00 08/18-08/19 - Continue PO Invega given severity of psychosis and fact that she is paresh ating it well. 08/20 -Continue current treatment plan; 304 hearing tomorrow; will coordinate with her BCM after regarding discharge planning. Many barriers, including illegal status in this country, lack of insurance or income, lack of family support, and homelessness. Additionally, her psychosis is impairing her from participating fully in discharge planning, as she has a delusion that she owns a home in [place] and can go there, so is unwilling to work with us for alternative housing options. She additionally does not appear to appreciate her lack of resources, for example has no way to get food or emergency care home if needed, but is unconcerned about this. She currently has a PFA from multiple family members against her, but likewise does not recognize this, and has already dwight lated it multiple times since she was released from [facility]. Present on Admission?: Yes (2) Noncompliance with medication regimen: 08/04/19 - The patient indicates that she has stopped taking her medicine because the names of the directions for the medications are in Nepalese and she cannot read them. She also indicates that she no longer has access to her medications and has not taken any for approximately 5 days. The patient also claims to not recall the names of any of her medications and reports that she does not have the conditions for which her known medications are clearly intended. She also seems not to be oriented to year, and memory deficits on testing suggests that there may be some cognitive impairment as well. -The patient's underlying psychiatric condition will be actively treated. It is hoped that with treatment we will be able to better assess whether the patient can independently manage medications, or if she will need active assistance in this regard when she returns to the community. -She has a history of favorably responding to risperidone. We will start the patient on risperidone M tabs at her reported outpatient recommended dose, and as tolerated we will talk to the patient about converting to a Depo form of risperidone, given her history of medication nonadherence. 08/04 -Has been compliant with lithium and Risperdal in the hospital -reviewed Li 0.2 on 08/03/1908/07 - Would benefit from CANTOR and will explore options once we know where she will get outpatient treatment. Barriers include finances, lack of insurance, homelessness, lack of supports, poor insight. 08/12-reviewed. 08/14 - Pt was started on Invega Sustenna 234mg on 08/13/2019, can receive second injection as soon as 08/17/2019 - Will need to discuss ability to continue the injections with the [facility] and [facility] at tomorrow's discharge planning meeting 08/15 -Patient more irritable, stating she will not take medications or accept further injections. -Discharge planning meeting held with BSU and [facility]; patient has many barriers to accessing treatment, including lack of valid visa, lack of insurance or funding, county's unwillingness to provide treatment, and inability to get medication. She is homeless, has no support from family, and has legal problems. She will need a 304 IO. 08/16 - Patient has now completed the initiation series of injections for Invega Sustenna - continue attempts to ensure patient can receive the injections on an outpatient basis (3) Homeless: 08/04/19 -Until recently, the patient reportedly had been living in a motel room and a "[employer]" motel in [place]. This accommodation was provided through a local benevolent organization known as "[employer]." However, this organization has notified us today that they were only able to provide accommodations during cold weather seasons and that, accordingly, they will not be able to provide accommodations over the balance of the spring, summer, and early derian. -In the past, the patient is live with family members. However, this is clearly not an option at the present time. The context is that the patient reportedly was in senior care for approximately a year because of her making terroristic threats against the family. While it does seem clear that the family wants to help protect her, they are unable to safely provide care home. Given the patient's history of neglect of self-care, medication nonadherence, and possible cognitive deficits we are going to investigate structured residential programs as part of our discharge planning. 08/09 -Outpatient employment evaluator/case manager reports that 2 shelters with bilingual staff were identified prior to the patient leaving [facility] -[facility] and [facility] in [place]. She remains unwilling to explore housing options, expressing a delusion that she owns a home locally that she can return to. She also believes that her family is living in her home and preventing her from using it. Her outpatient employment evaluator/case manager reports there is an active PFA against the patient from her family, which limits our ability to involve them in treatment. She also reports that the Department of [employer] and [employer] were both notified of the patient's illegal status in this country, but declined to deport her to [place]. 08/10 - Pt continues to verbalize anticipated discharge plans that cannot be confirmed and communication is limited by patient's refusal and PFAs against various family members. - Pt now stating that she is planning to live with her mother in [place] and that she will be picking her up on discharge - patient also admits that she has had no communication with her mother since her admission. 08/18 -Patient continues to refuse assistance with housing, insisting she owns a house and in fact "many houses," and gave us an address that is not real Inventory Assets Strengths: Agrees to take medications. Basically cooperative with treatment. Pleasant on approach. Concerned family members. Needs: Resolution of psychotic features. Medication adherence. Stable living environment. Risk Factors Assessment Male: No : No Do You Have Access To A Gun?: No Health Problems: Yes Mental Health Diagnoses: Yes Substance Use Disorders: Yes (Patient makes reference to smoking marijuana, but does not clear if this is something that is done regularly or if it interferes anyway with her functioning.) Previous Attempt: No (The patient insists that she does not have a history of intentional self injury. 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.") : No Responsible for Young Children: No Employed: No Stable Relationships: No Supportive Family: Yes (The patient's family has filed a PFA against the patient due to her past behaviors, but it is clear that they remain protective over.) Good Rapport with Provider: No Absence of Any Risk Factors Above: No Interval History Identifying Information ANDREW CYR is a 63-year-old F who has a history of schizoaffective disorder, bipolar type and was admitted on 08/03/19 20:47 on a 302 involuntary commitment after her grandson reported that she had told him that she had very recently threatened to get a gun and shoot herself. 303 granted on 08/08/2019, and 304 scheduled for 08/21/2019. Chief Complaint " Good thank you". Review of Systems Sleep Information Total Hours of Sleep: 3.5 Sleep Comments: pt on q-15 minute checks Meal Information Percent Meal Consumed - Breakfast: 100 Percent Meal Consumed - Lunch: 100 Percent Meal Consumed - Dinner: 100 Nutrition Comment: per meal record Subjective Subjective Patient was seen & assessed and interval progress reviewed with nursing and social work. Staff report she continues to spend her free time in her room, eating 100% of meals, often observed responding to unseen stimuli. She declines activities when they are offered to her, and is not attending any groups. On my assessment, she was seen with translation services, and remains focused on the address she provided yesterday, insisting that she owns a house that is in the "[place]" neighborhood in [place], near [facility], but does not know her actual address and cannot give any further information about where this is located. Physical Exam Psychiatric Orientation: alert and cooperative Apperance: appropriately dressed, appropriately groomed and appeared stated age Eye Contact: + fair eye contact Motor Behavior: steady gait and station and no abnormal motor movements Speech: normal rate/rhythm/volume of speech Speaks Taiwanese, uses dry wall sprayer Affect: euthymic affect and mood congruent with affect "Good." Thought Process: + tangential thought process and + incoherent thought process (Disorganized at times, unable to answer straightforward questions about where her house is located, dry wall sprayer had difficulty understanding her) Thought Content: + preoccupation and + delusions Suicidal Thoughts: denies suicidal thoughts Homicidal Thoughts: denies homicidal thoughts Appears to be responding to unseen others, talking and laughing when alone in her room Cognition: + recent memory not intact, + attention not intact and + language not intact Insight: + severely impaired insight Judgement: + severely impaired judgement Vital Signs (Past 24 Hours) Last Vital Signs Temp 36.8 C 08/19/19 21:35 Pulse 86 08/19/19 07:05 Resp 18 08/19/19 07:04 BP 125/79 08/19/19 07:05 Pulse Ox 95 08/03/19 21:25 [facility] & [facility] Current Inpatient Medications Current Inpatient Medications: Current Inpatient Medications Acetaminophen (Tylenol) 650 mg PO Q4H PRN PRN Reason: Headache or Minor Fever Stop: 09/02/19 20:46 Last Admin: 08/13/19 12:29 Dose: 650 mg Documented by: Al Hydrox/Mg Hydrox/Simethicone (Maalox) 30 ml PO Q4H PRN PRN Reason: GI Upset Stop: 09/02/19 20:46 Bismuth Subsalicylate (Kaopectate) 15 ml PO PRN PRN PRN Reason: Loose Stool Stop: 09/02/19 20:46 Diphenhydramine HCl (Benadryl Capsule) 50 mg PO BID [facility] Stop: 09/03/19 10:59 Last Admin: 08/19/19 21:39 Dose: 50 mg Documented by: Hydroxyzine HCl (Vistaril) 50 mg PO HSZ PRN PRN Reason: Insomnia Stop: 09/02/19 20:46 Hydroxyzine HCl (Vistaril) 25 mg PO Q4H PRN PRN Reason: Anxiety Stop: 09/02/19 20:46 Levothyroxine Sodium (Synthroid) 75 mcg PO DAILYBB [facility] Stop: 09/04/19 07:59 Last Admin: 08/19/19 08:39 Dose: 75 mcg Documented by: Kenbridge Carbonate (Kenbridge Carbonate) 450 mg PO BID [facility] Stop: 09/09/19 08:59 Last Admin: 08/19/19 21:40 Dose: 450 mg Documented by: Loratadine (Claritin) [facility] Stop: 09/03/19 10:59 Last Admin: 08/19/19 08:43 Dose: 10 mg Documented by: Magnesium Hydroxide (Milk Of Magnesia) 30 ml PO DAILY PRN PRN Reason: Constipation Stop: 09/02/19 20:46 Paliperidone (Invega) 6 mg PO QAM [facility] Stop: 09/10/19 08:59 Last Admin: 08/19/19 08:43 Dose: 6 mg Documented by: Pantoprazole Sodium (Protonix) 40 mg PO [facility] Stop: 09/03/19 21:59 Last Admin: 08/19/19 21:41 Dose: 40 mg Documented by: Simethicone (Mylicon) 80 mg PO TID PRN PRN Reason: Gas or Constipation Stop: 09/03/19 13:59 Simvastatin (Zocor) 10 mg PO [facility] Stop: 09/03/19 21:59 Last Admin: 08/19/19 21:40 Dose: 10 mg Documented by: Sodium Chloride ([place] Nasal) 1 - 2 sprays NA PRN PRN PRN Reason: Nasal Dryness/Congestion Stop: 09/02/19 20:46 Mental Health & Subst Abuse Tx Psychiatrist Name of Psychiatrist: Jackelin Psychiatrist's Psychiatric Appointment Comment: [phone] [place] [id number] Photographer Lithographic Name of Photographer Lithographic: [facility] Phone Number for Photographer Lithographic: [phone] Post Discharge Appointments Contact Information Discharge Phone Number: Unknown Discharge Address: No known address (1) Schizophrenia Schizophrenia type: unspecified Qualified Code(s): F20.9 - Schizophrenia, unspecified
[2019-08-20] MEDS: LORATADINE 10 MG TAB PO SCH (08:23)
[2019-08-20] MEDS: PALIPERIDONE 3 MG TABCR PO SCH (08:23)
[2019-08-20] MEDS: LEVOTHYROXINE SODIUM 75 MCG TABLET PO SCH (08:23)
[2019-08-20] MEDS: LITHIUM CARBONATE 300 MG TAB PO SCH ×2 (08:24→21:43)
[2019-08-20] MEDS: PANTOprazole 40 MG TAB PO SCH (21:43)
[2019-08-20] MEDS: SIMVASTATIN 10 MG TAB PO SCH (21:43)
[2019-08-21] MEDS: LORATADINE 10 MG TAB PO SCH (08:26)
[2019-08-21] MEDS: LEVOTHYROXINE SODIUM 75 MCG TABLET PO SCH (08:26)
[2019-08-21] MEDS: PALIPERIDONE 3 MG TABCR PO SCH (08:26)
[2019-08-21] MEDS: LITHIUM CARBONATE 300 MG TAB PO SCH ×2 (08:27→21:30)
--- NOTE | 2019-08-21 08:27 | Psychiatric Progress Note ---
Date of Service August 21, 2019 Impression / Recommendations Impression 63-year-old female from [place] who has a history of schizophrenia vs schizoaffective disorder and was admitted after 2 ER visits in 1 week for psychosis and inability to care for herself. She presented on a 302 commitment following a petition by her grandson stating she told him that she was going to shoot herself with a gun. She was imprisoned for approximately 1 year on charges of making terroristic threats, and was released 07/24, but was not taking medications and was homeless. She had been seen in the emergency room during the previous weekend and released after several days of stable behavior in the ER. [employer] was paying for a hotel room for her, but she left and was sleeping "on the streets" for at least several days, during which time overnight temperatures were below freezing. Reports from community providers are that she has been neglecting self-care, not attending to her personal needs, not taking her medicines, and not eating. She violated the PFA that her family members have against her, going to their place of business on the day of presentation. 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 She is demonstrating paranoia and responding to auditory and visual hallucinations. She is on a 303 as of 08/07, and a 304 as of 08/20. Inpatient treatment is medically necessary as she is severely mentally ill and unable to provide for her own basic needs as a result, and additionally threatened to kill herself as detailed in the 302 petition. Received first dose of Invega Sustenna on 08/12, second on 08/16, and po Invega has been continued due to ongoing psychotic symptoms. She is on a 304 commitment as of 08/21/2019, and we are working with the critical access hospital to explore options for outpatient treatment/supports. (1) Schizophrenia: 08/04/19 -The patient has been admitted to the locked, secured behavioral health unit and has been placed in special observation room. She is also being monitored with close observations and every 15-minute direct observation. When more stable she will be actively encouraged to participate in individual, group, and activity therapies. We will also attempt to involve the family if the patient permits us to and if they agree. -Although she was given a diagnosis of schizophrenia in the emergency room, the record, and the patient's presentation, is more consistent with a diagnosis of schizoaffective disorder, bipolar type. She has a reported history of responding favorably to risperidone, and, in addition, she had been prescribed lithium carbonate prior to admission. The issue may be nonadherence with these medications, and the first plan is to restart them at risperidone 3 mg in the morning and 4 mg at bedtime (oral dissolving tablets to help assure adherence) and lithium carbonate 300 mg twice a day with a plan to check her lithium level next week. 08/04 -Interview was difficult again today due to apparent paranoia and lability of affect while utilizing historic interpreter services. Cannot rule out cognitive dysfunction in addition to psychosis. Appears she was not restarted on AM dose of risperdal yesterday. Will attempt to reconfirm prior home dose before restarting due to higher risk for SE at that dose and increased risk for EPS if titrated too quickly. We will continue to expand database as able. 08/05 -Affect remains odd and suspicious however she has not been overtly agitated or aggressive. -We will add 2 mg morning dose of Risperdal tomorrow working towards home dose of 3 mg in the morning and 4mg at bedtime -Ordered fasting glucose and lipids for a.m. for monitoring on atypical antipsychotic 08/06 -Patient remains psychotic, delusional, unable to come up with a reasonable discharge plan (today states she owns a house in [place] that she just bought, but wants the address and does not know where it is). She denies that her family has a PFA against her or that she has any legal problems. She is not a reliable historian, and we will reach out to her [facility] to try to get additional collateral information. -303 hearing scheduled for tomorrow, will request a discharge planning meeting with the critical access hospital afterwards. -Continue lithium and risperidone, and explore options for outpatient treatment/obtaining medications given her lack of resources. -Fasting labs reviewed for monitoring on an atypical antipsychotic; glucose 109, cholesterol 221, remainder within normal limits. 08/07 -303 hearing held and granted. Recommend 304 IO given her history of treatment noncompliance, lack of insight, frequent hospitalizations, and severity of psychotic symptoms and erratic, unsafe behavior when acutely psychotic. -Request records from psychiatric treatment while incarcerated. Patient refused to sign INO for [facility] (where she was referred for outpatient treatment during her 2018 hospitalization here). -Get collateral information from family, as patient reports they were helping her to establish housing. She signed an INO for her grandson who was also the 302 petitioner. -Discharge planning meeting with [facility] Lizzy Pandey. Explore options for housing assistance and OP care (numerous barriers including language, lack of resources/income, citizenship, lack of insurance, poor insight and adherence). -Continue risperidone and increase to 3mg qam and 4mg hs. Explore options for CANTOR (will depend largely on where/how she will access OP care, as no insurance so will have to explore ways to get CANTOR covered). Check w/ CV re: ability to supply/administer CANTOR. -Continue lithium and check trough level tomorrow. 08/08 - Pt declines feeling a need to adjust medications - Attempted to discuss subtherapeutic lithium level (0.4) - will offer patient 600mg tonight and continue the 300mg dose each morning - Limited ability to communicate with historic interpreter service today, as patient does not speak at a volume loud enough for historic interpreter to accurately translate despite many attempts to track and field coach patient - Awaiting additional communication from [facility] regarding CANTOR options available 08/09 -Hector dose increased today to 450 mg twice daily; recheck trough level after 5 days (08/15/2019). -Change risperidone to paliperidone, with plan to transition to Invega Sustenna if it is effective and well-tolerated. Sustenna preferred over Risperdal Consta as it can be administered every 4 weeks instead of every 2. She already received her morning dose of risperidone, so will give 3 mg of paliperidone tonight, and 6 mg once daily starting tomorrow. -Patient has now signed releases for [facility] and [facility], so we will request records to clarify previous psychiatric treatment and response. 08/10 - Continue lithium 450mg BID, lithium level scheduled for 08/15/2019 - Continue paliperidone 6mg qAM - ongoing attempts to coordinate with [facility] regarding CANTOR options. Patient's lack of Social Security Number is possibly a barrier to applying for patient assistance programs for medications. Could consider titration of paliperidone to 9mg daily if tolerated. - Meeting between our team, the BSU and CV has been scheduled for 08/15 to discuss aftercare and discharge planning 08/11 - monitor for ongoing improvement on higher dose of Hector and Invega, will be converted to injectable if means to continue outpatient. 08/12 --Reviewed. Will give first of 2 Invega loading injections today, no clear aftercare plan in place so primary team can determine timing of/need for 2nd injection. At minimum she would have more coverage with medication when leaves the hospital. Ideally she would have discharge instructions/nuclear medical technologist instructions in Irish. 08/13 - Currently patient seems more restless, not accepting of need for discharge planning and given her history of incarceration I believe this is the cause rather than worsening bipolar. Will monitor. Explained to patient court order (commitment) at this time and need for county meeting. Encouraged her to consider assistance with relocation to a city with more burundian speaking people, like [place] or previous fdc offered. Plan: lithium level in am, states she won't take PO meds after discharge. 08/14 - Continue current medication regimen - patient can be given second loading dose of Invega Sustenna as early as 08/16 - Hector level obtained this morning - within therapeutic range at 0.7. Can consider further titration as indicated. - Electrolytes obtained with AM blood work as well. Sodium level is slightly low at 135; all other values were WNL - Pt continues to be preoccupied with discharge, but is able to verbalize desire to continue medications as prescribed on an outpatient basis - Discharge planning meeting is scheduled for tomorrow with the BSU and CV 08/15 -Discharge planning meeting: No current outpatient treatment options, unwilling to accept assistance to complete visa or [place] applications, no way to get medications and no outpatient clinicians available. -Remains unwilling to explore options for fdc/housing. -File for 304 hearing to be held next week. 08/16 - Meeting held today with patient's CM and social work coordinator - patient provided verbal permission to work with CM while in the hospital and to allow her to c oordinate with [facility] and the patient's brother - We continue to explore possible options for ongoing Invega Sustenna injections - patient did receive her second initiation injection today - 304 hearing scheduled for 08/20 at 10:00 08/18 - Continue PO Invega given severity of psychosis and fact that she is tolerating it well. 08/19 -Continue current treatment plan; 304 hearing tomorrow; will coordinate with her [facility] after regarding discharge planning. Many barriers, including illegal status in this country, lack of insurance or income, lack of family support, and homelessness. Additionally, her psychosis is impairing her from participating fully in discharge planning, as she has a delusion that she owns a home in [place] and can go there, so is unwilling to work with us for alternative housing options. She additionally does not appear to appreciate her lack of resources, for example has no way to get food or emergency fdc if needed, but is unconcerned about this. She currently has a PFA from multiple family members against her, but likewise does not recognize this, and has already violated it multiple times since she was released from half-way. 08/20 -304 held and granted. Continue current meds (li and Invega Sustenna and PO). -Continue discharge planning: [facility] and critical access hospital exploring options for IOC/outpatient care ([facility], how to get medications covered). Continue to encourage patient to complete necessary applications ([place]) to access services, and to accept help w/ housing (currently limited by her psychosis). -Patient continues to endorse delusions, does not believe that her family has a PFA against her. We will attempt to get a copy of the PFA in Irish for her. (2) Noncompliance with medication regimen: 08/04/19 - The patient indicates that she has stopped taking her medicine because the names of the directions for the medications are in Nepalese and she cannot read them. She also indicates that she no longer has access to her medications and has not taken any for approximately 5 days. The patient also claims to not recall the names of any of her medications and reports that she does not have the conditions for which her known medications are clearly intended. She also seems not to be oriented to year, and memory deficits on testing suggests that there may be some cognitive impairment as well. -The patient's underlying psychiatric condition will be actively treated. It is hoped that with treatment we will be able to better assess whether the patient can independently manage medications, or if she will need active assistance in this regard when she returns to the community. -She has a history of favorably responding to risperidone. We will start the patient on risperidone M tabs at her reported outpatient recommended dose, and as tolerated we will talk to the patient about converting to a Depo form of risperidone, given her history of medication nonadherence. 08/04 -Has been compliant with lithium and Risperdal in the hospital -reviewed Li 0.2 on 08/03/1908/07 - Would benefit from CANTOR and will explore options once we know where she will get outpatient treatment. Barriers include finances, lack of insurance, homelessness, lack of supports, poor insight. 08/12-reviewed. 08/14 - Pt was started on Invega Sustenna 234mg on 08/13/2019, can receive second injection as soon as 08/17/2019 - Will need to discuss ability to continue the injections with the BSU and CVIM at tomorrow's discharge planning meeting 08/15 -Patient more irritable, stating she will not take medications or accept further injections. -Discharge planning meeting held with BSU and CVIM; patient has many barriers to accessing treatment, including lack of valid visa, lack of insurance or funding, county's unwillingness to provide treatment, and inability to get medication. She is homeless, has no support from family, and has legal problems. She will need a 304 IOC. 08/16 - Patient has now completed the initiation series of injections for Invega Sustenna - continue attempts to ensure patient can receive the injections on an outpatient basis (3) Homeless: 08/04/19 -Until recently, the patient reportedly had been living in a motel room and a "[employer]" motel in [place]. This accommodation was provided through a local benevolent organization known as "[employer]." However, this organization has notified us today that they were only able to provide accommodations during cold weather seasons and that, accordingly, they will not be able to provide accommodations over the balance of the spring, summer, and early derian. -In the past, the patient is live with family members. However, this is clearly not an option at the present time. The context is that the patient reportedly was in jail for approximately a year because of her making terroristic threats against the family. While it does seem clear that the family wants to help protect her, they are unable to safely provide fdc. Given the patient's history of neglect of self-care, medication nonadherence, and possible cognitive deficits we are going to investigate structured residential programs as part of our discharge planning. 08/09 -Outpatient case planner reports that 2 shelters with bilingual staff were identified prior to the patient leaving half-way -[facility] and [facility] in [place]. She remains unwilling to explore housing options, expressing a delusion that she owns a home locally that she can return to. She also believes that her family is living in her home and preventing her from using it. Her outpatient case planner reports there is an active PFA against the patient from her family, which limits our ability to involve them in treatment. She also reports that the [employer] of [employer] and [facility] were both notified of the patient's illegal status in this country, but declined to deport her to [place]. 08/10 - Pt continues to verbalize anticipated discharge plans that cannot be confirmed and communication is limited by patient's refusal and PFAs against various family members. - Pt now stating that she is planning to live with her mother in [place] and that she will be picking her up on discharge - patient also admits that she has had no communication with her mother since her admission. 08/18 -Patient continues to refuse assistance with housing, insisting she owns a house and in fact "many houses," and gave us an address that is not real Inventory Assets Strengths: Agrees to take medications. Basically cooperative with treatment. Pleasant on approach. Concerned family members. Needs: Resolution of psychotic features. Medication adherence. Stable living environment. Risk Factors Assessment Male: No : No Do You Have Access To A Gun?: No Health Problems: Yes Mental Health Diagnoses: Yes Substance Use Disorders: Yes (Patient makes reference to smoking marijuana, but does not clear if this is something that is done regularly or if it interferes anyway with her functioning.) Previous Attempt: No (The patient insists that she does not have a history of intentional self injury. 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 303 granted on 08/08/2019, and 304 scheduled for 08/21/2019. Chief Complaint "Good morning". Review of Systems Sleep Information Total Hours of Sleep: 9 Sleep Comments: pt on q-15 minute checks Meal Information Percent Meal Consumed - Breakfast: 100 Percent Meal Consumed - Lunch: 100 Percent Meal Consumed - Dinner: 100 Nutrition Comment: per meal record Subjective Subjective Patient was seen & assessed and interval progress reviewed with treatment team. Staff report she has been more pleasant on interaction, but remains delusional that she owns a home and doens't need help with housing, and gets angry when staff ask about it. She also continues to report that her family does not have a PFA against her and does not believe this is real. She was seen with diplomatic interpreter #[id number]. She initially attended her 304 hearing, which was held by phone, but left shortly after it started, stating she did not want anything to do with it. The 304 was granted. Physical Exam Psychiatric Orientation: alert and cooperative Apperance: appropriately dressed and appeared stated age overweight Eye Contact: + fair eye contact Motor Behavior: steady gait and station and no abnormal motor movements Speech: normal rate/rhythm/volume of speech Affect: + labile affect Initially pleasant, but abruptly became angry and uncooperative during her hearing, and left without explanation Irritable Thought Process: + tangential thought process Thought Content: + paranoid, + delusions and + persecution Suicidal Thoughts: denies suicidal thoughts Cognition: + recent memory not intact and + attention not intact Insight: + severely impaired insight Judgement: + severely impaired judgement Vital Signs (Past 24 Hours) Last Vital Signs Temp 36.5 C 08/21/19 07:00 Pulse 87 08/21/19 07:02 Resp 18 08/21/19 07:00 BP 130/77 08/21/19 07:02 Pulse Ox 95 08/03/19 21:25 Results & Data ([facility]) Current Inpatient Medications Current Inpatient Medications: Current Inpatient Medications Acetaminophen (Tylenol) 650 mg PO Q4H PRN PRN Reason: Headache or Minor Fever Stop: 09/02/19 20:46 Last Admin: 08/13/19 12:29 Dose: 650 mg Documented by: Al Hydrox/Mg Hydrox/Simethicone (Maalox) 30 ml PO Q4H PRN PRN Reason: GI Upset Stop: 09/02/19 20:46 Bismuth Subsalicylate (Kaopectate) 15 ml PO PRN PRN PRN Reason: Loose Stool Stop: 09/02/19 20:46 Diphenhydramine HCl (Benadryl Capsule) 50 mg PO BID CLARISA Stop: 09/03/19 10:59 Last Admin: 08/20/19 21:44 Dose: 50 mg Documented by: Hydroxyzine HCl (Vistaril) 50 mg PO HSZ PRN PRN Reason: Insomnia Stop: 09/02/19 20:46 Hydroxyzine HCl (Vistaril) 25 mg PO Q4H PRN PRN Reason: Anxiety Stop: 09/02/19 20:46 Levothyroxine Sodium (Synthroid) 75 mcg PO DAILYBB CLARISA Stop: 09/04/19 07:59 Last Admin: 08/20/19 08:23 Dose: 75 mcg Documented by: Hector Carbonate (Hector Carbonate) 450 mg PO BID CLARISA Stop: 09/09/19 08:59 Last Admin: 08/20/19 21:43 Dose: 450 mg Documented by: Loratadine (Claritin) 10 mg PO QAM CLARISA Stop: 09/03/19 10:59 Last Admin: 08/20/19 08:23 Dose: 10 mg Documented by: Magnesium Hydroxide (Milk Of Magnesia) 30 ml PO DAILY PRN PRN Reason: Constipation Stop: 09/02/19 20:46 Paliperidone (Invega) 6 mg PO QAM CLARISA Stop: 09/10/19 08:59 Last Admin: 08/20/19 08:23 Dose: 6 mg Documented by: Pantoprazole Sodium (Protonix) 40 mg PO HS CLARISA Stop: 09/03/19 21:59 Last Admin: 08/20/19 21:43 Dose: 40 mg Documented by: Simethicone (Mylicon) 80 mg PO TID PRN PRN Reason: Gas or Constipation Stop: 09/03/19 13:59 Simvastatin (Zocor) 10 mg PO HS CLARISA Stop: 09/03/19 21:59 Last Admin: 08/20/19 21:43 Dose: 10 mg Documented by: Sodium Chloride (Sublette Nasal) 1 - 2 sprays NA PRN PRN PRN Reason: Nasal Dryness/Congestion Stop: 09/02/19 20:46 Mental Health & Subst Abuse Tx Psychiatrist Name of Psychiatrist: Jackelin Psychiatrist's Psychiatric Appointment Comment: [phone] [place] [address] Technical Manager Name of Technical Manager: [facility] Phone Number for Technical Manager: [phone] Post Discharge Appointments Contact Information Discharge Phone Number: Unknown Discharge Address: No known address (1) Schizophrenia Schizophrenia type: unspecified Qualified Code(s): F20.9 - Schizophrenia, unspecified
[2019-08-21] MEDS: PANTOprazole 40 MG TAB PO SCH (21:31)
[2019-08-21] MEDS: SIMVASTATIN 10 MG TAB PO SCH (21:32)
[2019-08-22] MEDS: LEVOTHYROXINE SODIUM 75 MCG TABLET PO SCH (07:48)
[2019-08-22] MEDS: LORATADINE 10 MG TAB PO SCH (07:50)
[2019-08-22] MEDS: PALIPERIDONE 3 MG TABCR PO SCH (07:51)
[2019-08-22] MEDS: LITHIUM CARBONATE 300 MG TAB PO SCH ×2 (07:51→21:03)
--- NOTE | 2019-08-22 10:18 | Psychiatric Progress Note ---
Date of Service August 22, 2019 Impression / Recommendations Impression 63-year-old female from [place] who has a history of schizophrenia vs schizoaffective disorder and was admitted after 2 ER visits in 1 week for psychosis and inability to care for herself. She presented on a 302 commitment following a petition by her grandson stating she told him that she was going to shoot herself with a gun. She was imprisoned for approximately 1 year on charges of making terroristic threats, and was released 07/24, but was not taking medications and was homeless. She had been seen in the emergency room during the previous weekend and released after several days of stable behavior in the ER. [employer] was paying for a hotel room for her, but she left and was sleeping "on the streets" for at least several days, during which time overnight temperatures were below freezing. Reports from community providers are that she has been neglecting self-care, not attending to her personal needs, not taking her medicines, and not eating. She violated the PFA that her family members have against her, going to their place of business on the day of presentation. 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 She is demonstrating paranoia and responding to auditory and visual hallucinations. She is on a 303 as of 08/07, and a 304 as of 08/20. Inpatient treatment is medically necessary as she is severely mentally ill and unable to provide for her own basic needs as a result, and additionally threatened to kill herself as detailed in the 302 petition. Received first dose of Invega Sustenna on 08/12, second on 08/16, and po Invega has been continued due to ongoing psychotic symptoms. She is on a 304 commitment as of 08/21/2019, and we are working with the [facility] to explore options for outpatient treatment/supports. (1) Schizophrenia: 08/04/19 -The patient has been admitted to the locked, secured behavioral health unit and has been placed in special observation room. She is also being monitored with close observations and every 15-minute direct observation. When more stable she will be actively encouraged to participate in individual, group, and activity therapies. We will also attempt to involve the family if the patient permits us to and if they agree. -Although she was given a diagnosis of schizophrenia in the emergency room, the record, and the patient's presentation, is more consistent with a diagnosis of schizoaffective disorder, bipolar type. She has a reported history of responding favorably to risperidone, and, in addition, she had been prescribed lithium carbonate prior to admission. The issue may be nonadherence with these medications, and the first plan is to restart them at risperidone 3 mg in the morning and 4 mg at bedtime (oral dissolving tablets to help assure adherence) and lithium carbonate 300 mg twice a day with a plan to check her lithium level next week. 08/04 -Interview was difficult again today due to apparent paranoia and lability of affect while utilizing court interpreter services. Cannot rule out cognitive dysfunction in addition to psychosis. Appears she was not restarted on AM dose of risperdal yesterday. Will attempt to reconfirm prior home dose before restarting due to higher risk for SE at that dose and increased risk for EPS if titrated too quickly. We will continue to expand database as able. 08/05 -Affect remains odd and suspicious however she has not been overtly agitated or aggressive. -We will add 2 mg morning dose of Risperdal tomorrow working towards home dose of 3 mg in the morning and 4mg at bedtime -Ordered fasting glucose and lipids for a.m. for monitoring on atypical antipsychotic 08/06 -Patient remains psychotic, delusional, unable to come up with a reasonable discharge plan (today states she owns a house in [place] that she just bought, but wants the address and does not know where it is). She denies that her family has a PFA against her or that she has any legal problems. She is not a reliable historian, and we will reach out to her [facility] to try to get additional collateral information. -303 hearing scheduled for tomorrow, will request a discharge planning meeting with the [facility] afterwards. -Continue lithium and risperidone, and explore options for outpatient treatment/obtaining medications given her lack of resources. -Fasting labs reviewed for monitoring on an atypical antipsychotic; glucose 109, cholesterol 221, remainder within normal limits. 08/07 -303 hearing held and granted. Recommend 304 IO given her history of treatment noncompliance, lack of insight, frequent hospitalizations, and severity of psychotic symptoms and erratic, unsafe behavior when acutely psychotic. -Request records from psychiatric treatment while incarcerated. Patient refused to sign INO for [facility] (where she was referred for outpatient treatment during her 2018 hospitalization here). -Get collateral information from family, as patient reports they were helping her to establish housing. She signed an INO for her grandson who was also the 302 petitioner. -Discharge planning meeting with [facility] Lizzy Pandey. Explore options for housing assistance and OP care (numerous barriers including language, lack of resources/income, citizenship, lack of insurance, poor insight and adherence). -Continue risperidone and increase to 3mg qam and 4mg hs. Explore options for CANTOR (will depend largely on where/how she will access OP care, as no insurance so will have to explore ways to get CANTOR covered). Check w/ CV re: ability to supply/administer CANTOR. -Continue lithium and check trough level tomorrow. 08/08 - Pt declines feeling a need to adjust medications - Attempted to discuss subtherapeutic lithium level (0.4) - will offer patient 600mg tonight and continue the 300mg dose each morning - Limited ability to communicate with court interpreter service today, as patient does not speak at a volume loud enough for court interpreter to accurately translate despite many attempts to personal coach patient - Awaiting additional communication from [facility] regarding CANTOR options available 08/09 -[place] dose increased today to 450 mg twice daily; recheck trough level after 5 days (08/15/2019). -Change risperidone to paliperidone, with plan to transition to Invega Sustenna if it is effective and well-tolerated. Sustenna preferred over Risperdal Consta as it can be administered every 4 weeks instead of every 2. She already received her morning dose of risperidone, so will give 3 mg of paliperidone tonight, and 6 mg once daily starting tomorrow. -Patient has now signed releases for [facility] and [facility], so we will request records to clarify previous psychiatric treatment and response. 08/10 - Continue lithium 450mg BID, lithium level scheduled for 08/15/2019 - Continue paliperidone 6mg qAM - ongoing attempts to coordinate with [facility] regarding CANTOR options. Patient's lack of Social Security Number is possibly a barrier to applying for patient assistance programs for medications. Could consider titration of paliperidone to 9mg daily if tolerated. - Meeting between our team, the BSU and CV has been scheduled for 08/15 to discuss aftercare and discharge planning 08/11 - monitor for ongoing improvement on higher dose of [place] and Invega, will be converted to injectable if means to continue outpatient. 08/12 --Reviewed. Will give first of 2 Invega loading injections today, no clear aftercare plan in place so primary team can determine timing of/need for 2nd injection. At minimum she would have more coverage with medication when leaves the hospital. Ideally she would have discharge instructions/media services coordinator instructions in Egyptian. 08/13 - Currently patient seems more restless, not accepting of need for discharge planning and given her history of incarceration I believe this is the cause rather than worsening bipolar. Will monitor. Explained to patient court order (commitment) at this time and need for county meeting. Encouraged her to consider assistance with relocation to a city with more salvadorean speaking people, like [place] or previous senior living offered. Plan: lithium level in am, states she won't take PO meds after discharge. 08/14 - Continue current medication regimen - patient can be given second loading dose of Invega Sustenna as early as 08/16 - [place] level obtained this morning - within therapeutic range at 0.7. Can consider further titration as indicated. - Electrolytes obtained with AM blood work as well. Sodium level is slightly low at 135; all other values were WNL - Pt continues to be preoccupied with discharge, but is able to verbalize desire to continue medications as prescribed on an outpatient basis - Discharge planning meeting is scheduled for tomorrow with the BSU and CV 08/15 -Discharge planning meeting: No current outpatient treatment options, unwilling to accept assistance to complete visa or [place] applications, no way to get medications and no outpatient clinicians available. -Remains unwilling to explore options for senior living/housing. -File for 304 hearing to be held next week. 08/16 - Meeting held today with patient's CM and psychosocial rehabilitation counselor - patient provided verbal permission to work with CM while in the hospital and to allow her to c oordinate with [facility] and the patient's brother - We continue to explore possible options for ongoing Invega Sustenna injections - patient did receive her second initiation injection today - 304 hearing scheduled for 08/20 at 10:00 08/18 - Continue PO Invega given severity of psychosis and fact that she is tolerating it well. 08/19 -Continue current treatment plan; 304 hearing tomorrow; will coordinate with her [facility] after regarding discharge planning. Many barriers, including illegal status in this country, lack of insurance or income, lack of family support, and homelessness. Additionally, her psychosis is impairing her from participating fully in discharge planning, as she has a delusion that she owns a home in [place] and can go there, so is unwilling to work with us for alternative housing options. She additionally does not appear to appreciate her lack of resources, for example has no way to get food or emergency senior living if needed, but is unconcerned about this. She currently has a PFA from multiple family members against her, but likewise does not recognize this, and has already violated it multiple times since she was released from detention. 08/20 -304 held and granted. Continue current meds (li and Invega Sustenna and PO). -Continue discharge planning: [facility] and [facility] exploring options for IOC/outpatient care (Jackelin, how to get medications covered). Continue to encourage patient to complete necessary applications ([place]isa, [place]) to access services, and to accept help w/ housing (currently limited by her psychosis). -Patient continues to endorse delusions, does not believe that her family has a PFA against her. We will attempt to get a copy of the PFA in Egyptian for her. 08/21 - Continue current medication regimen - patient reports feeling as though the medications are helpful. Stating she understands the benefit of medications and will continue both the injections and oral medications on discharge. - Referrals placed to [facility] for outpatient treatment on an IOC. Will continue attempts to work with patient to complete applications for her Visa/[place]. (2) Noncompliance with medication regimen: 08/04/19 - The patient indicates that she has stopped taking her medicine because the names of the directions for the medications are in Iraqi and she cannot read them. She also indicates that she no longer has access to her medications and has not taken any for approximately 5 days. The patient also claims to not recall the names of any of her medications and reports that she does not have the conditions for which her known medications are clearly intended. She also seems not to be oriented to year, and memory deficits on testing suggests that there may be some cognitive impairment as well. -The patient's underlying psychiatric condition will be actively treated. It is hoped that with treatment we will be able to better assess whether the patient can independently manage medications, or if she will need active assistance in this regard when she returns to the community. -She has a history of favorably responding to risperidone. We will start the patient on risperidone M tabs at her reported outpatient recommended dose, and as tolerated we will talk to the patient about converting to a Depo form of risperidone, given her history of medication nonadherence. 08/04 -Has been compliant with lithium and Risperdal in the hospital -reviewed Li 0.2 on 08/03/1908/07 - Would benefit from CANTOR and will explore options once we know where she will get outpatient treatment. Barriers include finances, lack of insurance, homelessness, lack of supports, poor insight. 08/12-reviewed. 08/14 - Pt was started on Invega Sustenna 234mg on 08/13/2019, can receive second injection as soon as 08/17/2019 - Will need to discuss ability to continue the injections with the BSU and CVIM at tomorrow's discharge planning meeting 08/15 -Patient more irritable, stating she will not take medications or accept further injections. -Discharge planning meeting held with BSU and CVIM; patient has many barriers to accessing treatment, including lack of valid visa, lack of insurance or funding, county's unwillingness to provide treatment, and inability to get medication. She is homeless, has no support from family, and has legal problems. She will need a 304 IOC. 08/16 - Patient has now completed the initiation series of injections for Invega Sustenna - continue attempts to ensure patient can receive the injections on an outpatient basis (3) Homeless: 08/04/19 -Until recently, the patient reportedly had been living in a motel room and a "[employer]" motel in [place]. This accommodation was provided through a local benevolent organization known as "[employer]." However, this organization has notified us today that they were only able to provide accommodations during cold weather seasons and that, accordingly, they will not be able to provide accommodations over the balance of the spring, summer, and early derian. -In the past, the patient is live with family members. However, this is clearly not an option at the present time. The context is that the patient reportedly was in nursing home for approximately a year because of her making terroristic threats against the family. While it does seem clear that the family wants to help protect her, they are unable to safely provide senior living. Given the patient's history of neglect of self-care, medication nonadherence, and possible cognitive deficits we are going to investigate structured residential programs as part of our discharge planning. 08/09 -Outpatient insurance case manager reports that 2 shelters with bilingual staff were identified prior to the patient leaving detention -[facility] and [facility] in [place]. She remains unwilling to explore housing options, expressing a delusion that she owns a home locally that she can return to. She also believes that her family is living in her home and preventing her from using it. Her outpatient insurance case manager reports there is an active PFA against the patient from her family, which limits our ability to involve them in treatment. She also reports that the [employer] and [facility] were both notified of the patient's illegal status in this country, but declined to deport her to [place]. 08/10 - Pt continues to verbalize anticipated discharge plans that cannot be confirmed and communication is limited by patient's refusal and PFAs against various family members. - Pt now stating that she is planning to live with her mother in [place] and that she will be picking her up on discharge - patient also admits that she has had no communication with her mother since her admission. 08/18 -Patient continues to refuse assistance with housing, insisting she owns a house and in fact "many houses," and gave us an address that is not real 08/21 - Confirmed that patient's brother, Earle, is not listed on the PFA - phone call placed to gather collateral information, discuss housing options Inventory Assets Strengths: Agrees to take medications. Basically cooperative with treatment. Pleasant on approach. Concerned family members. Needs: Resolution of psychotic features. Medication adherence. Stable living environment. Risk Factors Assessment Male: No : No Do You Have Access To A Gun?: No Health Problems: Yes Mental Health Diagnoses: Yes Substance Use Disorders: Yes (Patient makes reference to smoking marijuana, but does not clear if this is something that is done regularly or if it interferes anyway with her functioning.) Previous Attempt: No (The patient insists that she does not have a history of intentional self injury. 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 303 granted on 08/08/2019, and 304 scheduled for 08/21/2019. Chief Complaint "Good, just a little cold." Review of Systems Notes Constitutional: denied Cardiovascular: denied Respiratory: denied Gastrointestinal: denied Neurological: denied Psychiatric: denies symptoms other than stated above Total of at least 10 systems reviewed, pertinent positives as above and in HPI. Sleep Information Total Hours of Sleep: 3.25 Sleep Comments: pt on q-15 minute checks Meal Information Percent Meal Consumed - Breakfast: 100 Percent Meal Consumed - Lunch: 100 Percent Meal Consumed - Dinner: 100 Nutrition Comment: per meal record Subjective Subjective Patient was seen & assessed and interval progress reviewed with nursing and social work. Staff report the patient has remained cooperative in behavior, but limited in her willingness to actively work toward appropriate discharge planning. Pt has been compliant with medications. Pt was seen today to assess progress since admission. Conversation completed with assistance from [employer] interpretive services using the iPad. Initially conversation with Debbie #[id number] lost connection, so additional call was placed to Dipti #[id number] to complete interview. Pt initially states she is "good, just a little cold." We began the conversation by discussing medications, which patient states she is tolerating and report "yes, they have been good." Pt denies any concerns related to the stability of her mood. When asked if patient felt she would be able to remember her medications outside of the hospital, she states "of course". Pt states that generally "someone reminds me of the pills - whoever is with me. Usually I remember on my own, but they remind me." Pt does report that she is willing to continue injectable medications when she leaves the hospital, in addition to the medications she will have to take by mouth. Pt states she is willing to have appointments scheduled at [facility] and work with a insurance case manager, but "I don't want to sign any papers, but you can write down the appointment time and address and I will go. I will need to schedule so I can arrange rides." Pt responded with "ok" when she was informed that her insurance case manager would like to meet her at these appointments. We did take time to discuss the PFA her family has against her, patient again stating she is not aware of this. She was informed that we are attempting to get the documentation translated to Egyptian so she can understanding the restrictions associated with the PFA. Pt then states "I'm not aggressive, I am calm. I have no thoughts to harm my family, but if they are bothering me I will tell them to stop." Pt denies HI/SI presently. She denies hallucinations at this time, but some responses to questions are delayed and she is still observed to be muttering under her breath in between questions - (due to low volume, these words were not translated). At one point, patient did apologize for the delay in answering the question, stating "sorry, I was thinking about my brother..." Pt denied other needs or concerns at this time and was cooperative for the duration of our interview. Physical Exam Psychiatric Orientation: alert, oriented to person, oriented to place and cooperative Apperance: appropriately dressed (casually, in white t-shirt and jeans), appropriately groomed and appeared stated age Eye Contact: good eye contact (direct eye contact appropriately split between this provider and the iPad) Motor Behavior: steady gait and station and no abnormal motor movements Speech: normal rate/rhythm/volume of speech Affect: euthymic affect Mood: no depressed mood and no anxious mood Thought Process: goal directed thought process and clear/coherent thought process Thought Content: + paranoid (though far less so during this particular conversation) and + delusions (less preoccupied, but continues to claim she has a house and no PFA) Suicidal Thoughts: denies suicidal thoughts and denies suicidal intent Homicidal Thoughts: denies homicidal thoughts and denies homicidal intent Hallucinations: no auditory hallucinations and no visual hallucinations Though continues to mutter under her breath between questions Cognition: attention grossly intact and language grossly intact (translation provided by [employer] court interpreter, appropriate conversation) Insight: + impaired insight Judgement: + impaired judgement Vital Signs (Past 24 Hours) Last Vital Signs Temp 36.6 C 08/22/19 06:00 Pulse 77 08/22/19 06:25 Resp 15 08/22/19 06:00 BP 134/83 08/22/19 06:25 Pulse Ox 95 08/03/19 21:25 Results & Data ([facility]) Current Inpatient Medications Current Inpatient Medications: Current Inpatient Medications Acetaminophen (Tylenol) 650 mg PO Q4H PRN PRN Reason: Headache or Minor Fever Stop: 09/02/19 20:46 Last Admin: 08/13/19 12:29 Dose: 650 mg Documented by: Al Hydrox/Mg Hydrox/Simethicone (Maalox) 30 ml PO Q4H PRN PRN Reason: GI Upset Stop: 09/02/19 20:46 Bismuth Subsalicylate (Kaopectate) 15 ml PO PRN PRN PRN Reason: Loose Stool Stop: 09/02/19 20:46 Diphenhydramine HCl (Benadryl Capsule) 50 mg PO BID [facility] Stop: 09/03/19 10:59 Last Admin: 08/22/19 07:49 Dose: 50 mg Documented by: Hydroxyzine HCl (Vistaril) 50 mg PO HSZ PRN PRN Reason: Insomnia Stop: 09/02/19 20:46 Hydroxyzine HCl (Vistaril) 25 mg PO Q4H PRN PRN Reason: Anxiety Stop: 09/02/19 20:46 Levothyroxine Sodium (Synthroid) 75 mcg PO DAILYBB [facility] Stop: 09/04/19 07:59 Last Admin: 08/22/19 07:48 Dose: 75 mcg Documented by: [place] Carbonate ([place] Carbonate) 450 mg PO BID CLARISA Stop: 09/09/19 08:59 Last Admin: 08/22/19 07:51 Dose: 450 mg Documented by: Loratadine (Claritin) 10 mg PO QAM [facility] Stop: 09/03/19 10:59 Last Admin: 08/22/19 07:50 Dose: 10 mg Documented by: Magnesium Hydroxide (Milk Of Magnesia) 30 ml PO DAILY PRN PRN Reason: Constipation Stop: 09/02/19 20:46 Paliperidone (Invega) 6 mg PO QAM [facility] Stop: 09/10/19 08:59 Last Admin: 08/22/19 07:51 Dose: 6 mg Documented by: Pantoprazole Sodium (Protonix) 40 mg PO HS CLARISA Stop: 09/03/19 21:59 Last Admin: 08/21/19 21:31 Dose: 40 mg Documented by: Simethicone (Mylicon) 80 mg PO TID PRN PRN Reason: Gas or Constipation Stop: 09/03/19 13:59 Simvastatin (Zocor) 10 mg PO HS [facility] Stop: 09/03/19 21:59 Last Admin: 08/21/19 21:32 Dose: 10 mg Documented by: Sodium Chloride ([place] Nasal) 1 - 2 sprays NA PRN PRN PRN Reason: Nasal Dryness/Congestion Stop: 09/02/19 20:46 Mental Health & Subst Abuse Tx Psychiatrist Name of Psychiatrist: Jackelin Psychiatrist's Psychiatric Appointment Comment: [phone] [place] [address] [employer] Name of [employer]: [facility] Lizzy Phone Number for [employer]: [phone] Post Discharge Appointments Contact Information Discharge Phone Number: Unknown Discharge Address: No known address (1) Schizophrenia Schizophrenia type: unspecified Qualified Code(s): F20.9 - Schizophrenia, unspecified
[2019-08-22] MEDS: SIMVASTATIN 10 MG TAB PO SCH (21:03)
[2019-08-22] MEDS: PANTOprazole 40 MG TAB PO SCH (21:04)
[2019-08-23] MEDS: LEVOTHYROXINE SODIUM 75 MCG TABLET PO SCH (08:59)
[2019-08-23] MEDS: LITHIUM CARBONATE 300 MG TAB PO SCH ×2 (08:59→20:56)
[2019-08-23] MEDS: PALIPERIDONE 3 MG TABCR PO SCH (08:59)
[2019-08-23] MEDS: LORATADINE 10 MG TAB PO SCH (08:59)
--- NOTE | 2019-08-23 10:14 | Psychiatric Progress Note ---
Date of Service August 23, 2019 Impression / Recommendations Impression 63-year-old female from [place] who has a history of schizophrenia vs schizoaffective disorder and was admitted after 2 ER visits in 1 week for psychosis and inability to care for herself. She presented on a 302 commitment following a petition by her grandson stating she told him that she was going to shoot herself with a gun. She was imprisoned for approximately 1 year on charges of making terroristic threats, and was released 07/24, but was not taking medications and was homeless. She had been seen in the emergency room during the previous weekend and released after several days of stable behavior in the ER. [facility] [employer] [facility] was paying for a hotel room for her, but she left and was sleeping "on the streets" for at least several days, during which time overnight temperatures were below freezing. Reports from community providers are that she has been neglecting self-care, not attending to her personal needs, not taking her medicines, and not eating. She violated the PFA that her family members have against her, going to their place of business on the day of presentation. She is paranoid, delusional (believes she bought a [employer] apartment in [place] 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 She is demonstrating paranoia and responding to auditory and visual hallucinations. She is on a 303 as of 08/07, and a 304 as of 08/20. Inpatient treatment is medically necessary as she is severely mentally ill and unable to provide for her own basic needs as a result, and additionally threatened to kill herself as detailed in the 302 petition. Received first dose of Invega Sustenna on 08/12, second on 08/16, and po Invega has been continued due to ongoing psychotic symptoms. She is on a 304 commitment as of 08/21/2019, and we are working with the [facility] to explore options for outpatient treatment/supports. (1) Schizophrenia: 08/04/19 -The patient has been admitted to the locked, secured behavioral health unit and has been placed in special observation room. She is also being monitored with close observations and every 15-minute direct observation. When more stable she will be actively encouraged to participate in individual, group, and activity therapies. We will also attempt to involve the family if the patient permits us to and if they agree. -Although she was given a diagnosis of schizophrenia in the emergency room, the record, and the patient's presentation, is more consistent with a diagnosis of schizoaffective disorder, bipolar type. She has a reported history of responding favorably to risperidone, and, in addition, she had been prescribed lithium carbonate prior to admission. The issue may be nonadherence with these medications, and the first plan is to restart them at risperidone 3 mg in the morning and 4 mg at bedtime (oral dissolving tablets to help assure adherence) and lithium carbonate 300 mg twice a day with a plan to check her lithium level next week. 08/04 -Interview was difficult again today due to apparent paranoia and lability of affect while utilizing educational interpreter services. Cannot rule out cognitive dysfunction in addition to psychosis. Appears she was not restarted on AM dose of risperdal yesterday. Will attempt to reconfirm prior home dose before restarting due to higher risk for SE at that dose and increased risk for EPS if titrated too quickly. We will continue to expand database as able. 08/05 -Affect remains odd and suspicious however she has not been overtly agitated or aggressive. -We will add 2 mg morning dose of Risperdal tomorrow working towards home dose of 3 mg in the morning and 4mg at bedtime -Ordered fasting glucose and lipids for a.m. for monitoring on atypical antipsychotic 08/06 -Patient remains psychotic, delusional, unable to come up with a reasonable discharge plan (today states she owns a house in [place] that she just bought, but wants the address and does not know where it is). She denies that her family has a PFA against her or that she has any legal problems. She is not a reliable historian, and we will reach out to her [facility] to try to get additional collateral information. -303 hearing scheduled for tomorrow, will request a discharge planning meeting with the [facility] afterwards. -Continue lithium and risperidone, and explore options for outpatient treatment/obtaining medications given her lack of resources. -Fasting labs reviewed for monitoring on an atypical antipsychotic; glucose 109, cholesterol 221, remainder within normal limits. 08/07 -303 hearing held and granted. Recommend 304 IO given her history of treatment noncompliance, lack of insight, frequent hospitalizations, and severity of psychotic symptoms and erratic, unsafe behavior when acutely psychotic. -Request records from psychiatric treatment while incarcerated. Patient refused to sign INO for [facility] (where she was referred for outpatient treatment during her 2018 hospitalization here). -Get collateral information from family, as patient reports they were helping her to establish housing. She signed an INO for her grandson who was also the 302 petitioner. -Discharge planning meeting with [facility] Lizzy Pandey. Explore options for housing assistance and OP care (numerous barriers including language, lack of resources/income, citizenship, lack of insurance, poor insight and adherence). -Continue risperidone and increase to 3mg qam and 4mg hs. Explore options for CANTOR (will depend largely on where/how she will access OP care, as no insurance so will have to explore ways to get CANTOR covered). Check w/ CV re: ability to supply/administer CANTOR. -Continue lithium and check trough level tomorrow. 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 -Change risperidone to paliperidone, with plan to transition to Invega Sustenna if it is effective and well-tolerated. Sustenna preferred over Risperdal Consta as it can be administered every 4 weeks instead of every 2. She already received her morning dose of risperidone, so will give 3 mg of paliperidone tonight, and 6 mg once daily starting tomorrow. -Patient has now signed releases for [facility] and [facility], so we will request records to clarify previous psychiatric treatment and response. 08/10 - Continue lithium 450mg BID, lithium level scheduled for 08/15/2019 - Continue paliperidone 6mg qAM - ongoing attempts to coordinate with [facility] regarding CANTOR options. Patient's lack of Social Security Number is possibly a barrier to applying for patient assistance programs for medications. Could consider titration of paliperidone to 9mg daily if tolerated. - Meeting between our team, the BSU and CV has been scheduled for 08/15 to discuss aftercare and discharge planning 08/11 - monitor for ongoing improvement on higher dose of [place] and Invega, will be converted to injectable if means to continue outpatient. 08/12 --Reviewed. Will give first of 2 Invega loading injections today, no clear aftercare plan in place so primary team can determine timing of/need for 2nd injection. At minimum she would have more coverage with medication when leaves the hospital. Ideally she would have discharge instructions/medical biller/coder instructions in [place]. 08/13 - Currently patient seems more restless, not accepting of need for discharge planning and given her history of incarceration I believe this is the cause rather than worsening bipolar. Will monitor. Explained to patient court order (commitment) at this time and need for county meeting. Encouraged her to consider assistance with relocation to a city with more trinidadian speaking people, like [place] or previous alf offered. Plan: lithium level in am, states she won't take PO meds after discharge. 08/14 - Continue current medication regimen - patient can be given second loading dose of Invega Sustenna as early as 08/16 - [place] level obtained this morning - within therapeutic range at 0.7. Can consider further titration as indicated. - Electrolytes obtained with AM blood work as well. Sodium level is slightly low at 135; all other values were WNL - Pt continues to be preoccupied with discharge, but is able to verbalize desire to continue medications as prescribed on an outpatient basis - Discharge planning meeting is scheduled for tomorrow with the BSU and CV 08/15 -Discharge planning meeting: No current outpatient treatment options, unwilling to accept assistance to complete visa or [place] applications, no way to get medications and no outpatient clinicians available. -Remains unwilling to explore options for alf/housing. -File for 304 hearing to be held next week. 08/16 - Meeting held today with patient's CM and psychiatric social worker supervisor - patient provided verbal permission to work with CM while in the hospital and to allow her to c oordinate with [facility] and the patient's brother - We continue to explore possible options for ongoing Invega Sustenna injections - patient did receive her second initiation injection today - 304 hearing scheduled for 08/20 at 10:00 08/18 - Continue PO Invega given severity of psychosis and fact that she is tolerating it well. 08/19 -Continue current treatment plan; 304 hearing tomorrow; will coordinate with her [facility] after regarding discharge planning. Many barriers, including illegal status in this country, lack of insurance or income, lack of family support, and homelessness. Additionally, her psychosis is impairing her from participating fully in discharge planning, as she has a delusion that she owns a home in [place] and can go there, so is unwilling to work with us for alternative housing options. She additionally does not appear to appreciate her lack of resources, for example has no way to get food or emergency alf if needed, but is unconcerned about this. She currently has a PFA from multiple family members against her, but likewise does not recognize this, and has already violated it multiple times since she was released from [facility]. 08/20 -304 held and granted. Continue current meds (li and Invega Sustenna and PO). -Continue discharge planning: [facility] and [facility] exploring options for IOC/outpatient care ([facility], how to get medications covered). Continue to encourage patient to complete necessary applications ([place]isa, [place]) to access services, and to accept help w/ housing (currently limited by her psychosis). -Patient continues to endorse delusions, does not believe that her family has a PFA against her. We will attempt to get a copy of the PFA in [place] for her. 08/21 - Continue current medication regimen - patient reports feeling as though the medications are helpful. Stating she understands the benefit of medications and will continue both the injections and oral medications on discharge. - Referrals placed to [facility] for outpatient treatment on an IOC. Will continue attempts to work with patient to complete applications for her [place]isa/[place]. 08/22 - Continue current medication regimen - Continue to engage patient in meetings with her outpatient rn field case manager to coordinate discharge plans - pt is agreeable with outpatient follow-up at [facility], but is still not able to provide a reliable address and is not willing to consider alternative shelters, even ones that involve bilingual staff (2) Noncompliance with medication regimen: 08/04/19 - The patient indicates that she has stopped taking her medicine because the names of the directions for the medications are in Algerian and she cannot read them. She also indicates that she no longer has access to her medications and has not taken any for approximately 5 days. The patient also claims to not recall the names of any of her medications and reports that she does not have the conditions for which her known medications are clearly intended. She also seems not to be oriented to year, and memory deficits on testing suggests that there may be some cognitive impairment as well. -The patient's underlying psychiatric condition will be actively treated. It is hoped that with treatment we will be able to better assess whether the patient can independently manage medications, or if she will need active assistance in this regard when she returns to the community. -She has a history of favorably responding to risperidone. We will start the patient on risperidone M tabs at her reported outpatient recommended dose, and as tolerated we will talk to the patient about converting to a Depo form of risperidone, given her history of medication nonadherence. 08/04 -Has been compliant with lithium and Risperdal in the hospital -reviewed Li 0.2 on 08/03/1908/07 - Would benefit from CANTOR and will explore options once we know where she will get outpatient treatment. Barriers include finances, lack of insurance, homelessness, lack of supports, poor insight. 08/12-reviewed. 08/14 - Pt was started on Invega Sustenna 234mg on 08/13/2019, can receive second injection as soon as 08/17/2019 - Will need to discuss ability to continue the injections with the BSU and CVIM at tomorrow's discharge planning meeting 08/15 -Patient more irritable, stating she will not take medications or accept further injections. -Discharge planning meeting held with BSU and CVIM; patient has many barriers to accessing treatment, including lack of valid visa, lack of insurance or funding, county's unwillingness to provide treatment, and inability to get medication. She is homeless, has no support from family, and has legal problems. She will need a 304 IOC. 08/16 - Patient has now completed the initiation series of injections for Invega Sustenna - continue attempts to ensure patient can receive the injections on an outpatient basis (3) Homeless: 08/04/19 -Until recently, the patient reportedly had been living in a motel room and a "[employer]" motel in [place]. This accommodation was provided through a local benevolent organization known as "[employer]." However, this organization has notified us today that they were only able to provide accommodations during cold weather seasons and that, accordingly, they will not be able to provide accommodations over the balance of the spring, summer, and early derian. -In the past, the patient is live with family members. However, this is clearly not an option at the present time. The context is that the patient reportedly was in jail for approximately a year because of her making terroristic threats against the family. While it does seem clear that the family wants to help protect her, they are unable to safely provide alf. Given the patient's history of neglect of self-care, medication nonadherence, and possible cognitive deficits we are going to investigate structured residential programs as part of our discharge planning. 08/09 -Outpatient rn field case manager reports that 2 shelters with bilingual staff were identified prior to the patient leaving [facility] -[facility] and [facility] in [place]. She remains unwilling to explore housing options, expressing a delusion that she owns a home locally that she can return to. She also believes that her family is living in her home and preventing her from using it. Her outpatient rn field case manager reports there is an active PFA against the patient from her family, which limits our ability to involve them in treatment. She also reports that the [employer] of [employer] and [facility] were both notified of the patient's illegal status in this country, but declined to deport her to [place]. 08/10 - Pt continues to verbalize anticipated discharge plans that cannot be confirmed and communication is limited by patient's refusal and PFAs against various family members. - Pt now stating that she is planning to live with her mother in [place] and that she will be picking her up on discharge - patient also admits that she has had no communication with her mother since her admission. 08/18 -Patient continues to refuse assistance with housing, insisting she owns a house and in fact "many houses," and gave us an address that is not real 08/21 - Confirmed that patient's brother, Earle, is not listed on the PFA - phone call placed to gather collateral information, discuss housing options 08/22 - Pt is now saying she remembers her address is "[facility] ([facility] [address] but is unable to give a description of surrounding landmarks. Multiple internet searches have been conducted with no matching information - Pt is declining offers to explore bilingual shelters or [facility] which reportedly has bilingual staff. Inventory Assets Strengths: Agrees to take medications. Basically cooperative with treatment. Pleasant on approach. Concerned family members. Needs: Resolution of psychotic features. Medication adherence. Stable living environment. Risk Factors Assessment Male: No : No Do You Have Access To A Gun?: No Health Problems: Yes Mental Health Diagnoses: Yes Substance Use Disorders: Yes (Patient makes reference to smoking marijuana, but does not clear if this is something that is done regularly or if it interferes anyway with her functioning.) Previous Attempt: No (The patient insists that she does not have a history of intentional self injury. 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 303 granted on 08/08/2019, and 304 scheduled for 08/21/2019. Chief Complaint "Good. I'm good. How are you?" Review of Systems Notes Constitutional: denied Cardiovascular: denied Respiratory: denied Gastrointestinal: denied Neurological: denied Psychiatric: denies symptoms other than stated above Total of at least 10 systems reviewed, pertinent positives as above and in HPI. Sleep Information Total Hours of Sleep: 7.25 Sleep Comments: pt on q-15 minute checks Meal Information Percent Meal Consumed - Breakfast: 100 Percent Meal Consumed - Lunch: 100 Percent Meal Consumed - Dinner: 100 Nutrition Comment: per meal record Subjective Subjective Patient was seen & assessed and interval progress reviewed with treatment team. Staff report the patient remained in good behavioral control yesterday. She was more cooperative with conversations with staff. Pt has verbalized willingness to be seen at [facility] for outpatient medication management. Patient's case has again been reviewed with ICE, but no updates as to any additional involvement. Pt was seen today to assess progress since admission. Conversation was held with utilization of the in2nite interpretive service via [employer] [facility] #[id number]. Pt states today that she is "good." Appetite and sleep is reported to be good. Pt also feels that the medications have been "ok." Pt was informed that her brother has yet to return the phone call to provide us with information about her home address. Pt was asked where she would live on discharge, and stated " Well, the news is I'm going to go to my mom's." Pt has consistently stated that her mother lives in [place], but is now saying that her mother is going to be moving to live with the patient soon. Pt was asked where this would be and reported "[facility] [address] Pt does state that the house is located in [place]. Pt was asked what allowed her to provide this address, as she previously said she could not recall and that we would have to call her brother. She states "I was thinking, and thinking, and remembering. I just remembered." Pt then states "are you calling me crazy? I've said it 5 times." Pt was informed that this provider will attempt an internet search for this address, but that past attempts were not successful. Pt was asked if she would be willing to stay at [facility] or a alf until she is able to get to the home she claims she has, to which patient states "no. I have my house. I'm only interested in talking about leaving. No more. I am done with you." Physical Exam Psychiatric Orientation: alert Apperance: appropriately dressed, appropriately groomed and appeared stated age Eye Contact: good eye contact Motor Behavior: no abnormal motor movements (but does become more restless/irritable toward end of interview) Speech: normal rate/rhythm/volume of speech (volume appropriately increasing as she becomes more irritable) Affect: + irritable affect and + angry affect Mood: no depressed mood ("Good") Thought Process: + concrete thought process (disorganized ) Thought Content: + paranoid, + delusions and + persecution Cognition: attention grossly intact and language grossly intact Insight: + severely impaired insight Judgement: + severely impaired judgement Vital Signs (Past 24 Hours) Last Vital Signs Temp 36.9 C 08/23/19 06:54 Pulse 81 08/23/19 06:55 Resp 18 08/23/19 06:54 BP 130/87 08/23/19 06:55 Pulse Ox 95 08/03/19 21:25 Results & Data ([facility]) Current Inpatient Medications Current Inpatient Medications: Current Inpatient Medications Acetaminophen (Tylenol) 650 mg PO Q4H PRN PRN Reason: Headache or Minor Fever Stop: 09/02/19 20:46 Last Admin: 08/13/19 12:29 Dose: 650 mg Documented by: Al Hydrox/Mg Hydrox/Simethicone (Maalox) 30 ml PO Q4H PRN PRN Reason: GI Upset Stop: 09/02/19 20:46 Bismuth Subsalicylate (Kaopectate) 15 ml PO PRN PRN PRN Reason: Loose Stool Stop: 09/02/19 20:46 Diphenhydramine HCl (Benadryl Capsule) 50 mg PO BID [facility] Stop: 09/03/19 10:59 Last Admin: 08/23/19 08:59 Dose: 50 mg Documented by: Hydroxyzine HCl (Vistaril) 50 mg PO HSZ PRN PRN Reason: Insomnia Stop: 09/02/19 20:46 Hydroxyzine HCl (Vistaril) 25 mg PO Q4H PRN PRN Reason: Anxiety Stop: 09/02/19 20:46 Levothyroxine Sodium (Synthroid) 75 mcg PO DAILYBB [facility] Stop: 09/04/19 07:59 Last Admin: 08/23/19 08:59 Dose: 75 mcg Documented by: [place] Carbonate ([place] Carbonate) 450 mg PO BID CLARISA Stop: 09/09/19 08:59 Last Admin: 08/23/19 08:59 Dose: 450 mg Documented by: Loratadine (Claritin) 10 mg PO QAM [facility] Stop: 09/03/19 10:59 Last Admin: 08/23/19 08:59 Dose: 10 mg Documented by: Magnesium Hydroxide (Milk Of Magnesia) 30 ml PO DAILY PRN PRN Reason: Constipation Stop: 09/02/19 20:46 Paliperidone (Invega) 6 mg PO QAM [facility] Stop: 09/10/19 08:59 Last Admin: 08/23/19 08:59 Dose: 6 mg Documented by: Pantoprazole Sodium (Protonix) 40 mg PO HS [facility] Stop: 09/03/19 21:59 Last Admin: 08/22/19 21:04 Dose: 40 mg Documented by: Simethicone (Mylicon) 80 mg PO TID PRN PRN Reason: Gas or Constipation Stop: 09/03/19 13:59 Simvastatin (Zocor) 10 mg PO HS [facility] Stop: 09/03/19 21:59 Last Admin: 08/22/19 21:03 Dose: 10 mg Documented by: Sodium Chloride ([place] Nasal) 1 - 2 sprays NA PRN PRN PRN Reason: Nasal Dryness/Congestion Stop: 09/02/19 20:46 Mental Health & Subst Abuse Tx Psychiatrist Name of Psychiatrist: Jackelin Psychiatrist's Psychiatric Appointment Comment: [id number] [place] [address] [facility]per Name of Hammerer Helper: [facility] Phone Number for Hammerer Helper: [phone] Post Discharge Appointments Contact Information Discharge Phone Number: Unknown Discharge Address: No known address (1) Schizophrenia Schizophrenia type: unspecified Qualified Code(s): F20.9 - Schizophrenia, unspecified
[2019-08-23] MEDS: SIMVASTATIN 10 MG TAB PO SCH (20:57)
[2019-08-23] MEDS: PANTOprazole 40 MG TAB PO SCH (20:57)
[2019-08-24] MEDS: LITHIUM CARBONATE 300 MG TAB PO SCH ×2 (08:30→21:12)
[2019-08-24] MEDS: LEVOTHYROXINE SODIUM 75 MCG TABLET PO SCH (08:30)
[2019-08-24] MEDS: LORATADINE 10 MG TAB PO SCH (08:30)
[2019-08-24] MEDS: PALIPERIDONE 3 MG TABCR PO SCH (08:30)
--- NOTE | 2019-08-24 09:02 | Psychiatric Progress Note ---
Date of Service August 24, 2019 Impression / Recommendations Impression 63-year-old female from [place] who has a history of schizophrenia vs schizoaffective disorder and was admitted after 2 ER visits in 1 week for psychosis and inability to care for herself. She presented on a 302 commitment following a petition by her grandson stating she told him that she was going to shoot herself with a gun. She was imprisoned for approximately 1 year on charges of making terroristic threats, and was released 07/24, but was not taking medications and was homeless. She had been seen in the emergency room during the previous weekend and released after several days of stable behavior in the ER. [employer] was paying for a hotel room for her, but she left and was sleeping "on the streets" for at least several days, during which time overnight temperatures were below freezing. Reports from community providers are that she has been neglecting self-care, not attending to her personal needs, not taking her medicines, and not eating. She violated the PFA that her family members have against her, going to their place of business on the day of presentation. 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 She is demonstrating paranoia and responding to auditory and visual hallucinations. She is on a 303 as of 08/07, and a 304 as of 08/20. Inpatient treatment is medically necessary as she is severely mentally ill and unable to provide for her own basic needs as a result, and additionally threatened to kill herself as detailed in the 302 petition. Received first dose of Invega Sustenna on 08/12, second on 08/16, and po Invega has been continued due to ongoing psychotic symptoms. She is on a 304 commitment as of 08/21/2019, and we are working with the [facility] to explore options for outpatient treatment/supports - additional meeting held on 08/24/2019. (1) Schizophrenia: 08/04/19 -The patient has been admitted to the locked, secured behavioral health unit and has been placed in special observation room. She is also being monitored with close observations and every 15-minute direct observation. When more stable she will be actively encouraged to participate in individual, group, and activity therapies. We will also attempt to involve the family if the patient permits us to and if they agree. -Although she was given a diagnosis of schizophrenia in the emergency room, the record, and the patient's presentation, is more consistent with a diagnosis of schizoaffective disorder, bipolar type. She has a reported history of responding favorably to risperidone, and, in addition, she had been prescribed lithium carbonate prior to admission. The issue may be nonadherence with these medications, and the first plan is to restart them at risperidone 3 mg in the morning and 4 mg at bedtime (oral dissolving tablets to help assure adherence) and lithium carbonate 300 mg twice a day with a plan to check her lithium level next week. 08/04 -Interview was difficult again today due to apparent paranoia and lability of affect while utilizing diplomatic interpreter/translator services. Cannot rule out cognitive dysfunction in addition to psychosis. Appears she was not restarted on AM dose of risperdal yesterday. Will attempt to reconfirm prior home dose before restarting due to higher risk for SE at that dose and increased risk for EPS if titrated too quickly. We will continue to expand database as able. 08/05 -Affect remains odd and suspicious however she has not been overtly agitated or aggressive. -We will add 2 mg morning dose of Risperdal tomorrow working towards home dose of 3 mg in the morning and 4mg at bedtime -Ordered fasting glucose and lipids for a.m. for monitoring on atypical antipsychotic 08/06 -Patient remains psychotic, delusional, unable to come up with a reasonable discharge plan (today states she owns a house in [place] that she just bought, but wants the address and does not know where it is). She denies that her family has a PFA against her or that she has any legal problems. She is not a reliable historian, and we will reach out to her [facility] to try to get additional collateral information. -303 hearing scheduled for tomorrow, will request a discharge planning meeting with the [facility] afterwards. -Continue lithium and risperidone, and explore options for outpatient treatment/obtaining medications given her lack of resources. -Fasting labs reviewed for monitoring on an atypical antipsychotic; glucose 109, cholesterol 221, remainder within normal limits. 08/07 -303 hearing held and granted. Recommend 304 IOC given her history of treatment noncompliance, lack of insight, frequent hospitalizations, and severity of psychotic symptoms and erratic, unsafe behavior when acutely psychotic. -Request records from psychiatric treatment while incarcerated. Patient refused to sign INO for [facility] (where she was referred for outpatient treatment during her 2018 hospitalization here). -Get collateral information from family, as patient reports they were helping her to establish housing. She signed an INO for her grandson who was also the 302 petitioner. -Discharge planning meeting with [facility] Lizzy Pandey. Explore options for housing assistance and OP care (numerous barriers including language, lack of resources/income, citizenship, lack of insurance, poor insight and adherence). -Continue risperidone and increase to 3mg qam and 4mg hs. Explore options for CANTOR (will depend largely on where/how she will access OP care, as no insurance so will have to explore ways to get CANTOR covered). Check w/ CV re: ability to supply/administer CANTOR. -Continue lithium and check trough level tomorrow. 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 -Change risperidone to paliperidone, with plan to transition to Invega Sustenna if it is effective and well-tolerated. Sustenna preferred over Risperdal Consta as it can be administered every 4 weeks instead of every 2. She already received her morning dose of risperidone, so will give 3 mg of paliperidone tonight, and 6 mg once daily starting tomorrow. -Patient has now signed releases for [facility] and [facility], so we will request records to clarify previous psychiatric treatment and response. 08/10 - Continue lithium 450mg BID, lithium level scheduled for 08/15/2019 - Continue paliperidone 6mg qAM - ongoing attempts to coordinate with [facility] regarding CANTOR options. Patient's lack of Social Security Number is possibly a barrier to applying for patient assistance programs for medications. Could consider titration of paliperidone to 9mg daily if tolerated. - Meeting between our team, the BSU and CV has been scheduled for 08/15 to discuss aftercare and discharge planning 08/11 - monitor for ongoing improvement on higher dose of [place] and Invega, will be converted to injectable if means to continue outpatient. 08/12 --Reviewed. Will give first of 2 Invega loading injections today, no clear aftercare plan in place so primary team can determine timing of/need for 2nd injection. At minimum she would have more coverage with medication when leaves the hospital. Ideally she would have discharge instructions/medical practitioners instructions in [place]ian. 08/13 - Currently patient seems more restless, not accepting of need for discharge planning and given her history of incarceration I believe this is the cause rather than worsening bipolar. Will monitor. Explained to patient court order (commitment) at this time and need for county meeting. Encouraged her to consider assistance with relocation to a city with more libyan speaking people, like [place] or previous fpc offered. Plan: lithium level in am, states she won't take PO meds after discharge. 08/14 - Continue current medication regimen - patient can be given second loading dose of Invega Sustenna as early as 08/16 - [place] level obtained this morning - within therapeutic range at 0.7. Can consider further titration as indicated. - Electrolytes obtained with AM blood work as well. Sodium level is slightly low at 135; all other values were WNL - Pt continues to be preoccupied with discharge, but is able to verbalize desire to continue medications as prescribed on an outpatient basis - Discharge planning meeting is scheduled for tomorrow with the BSU and CV 08/15 -Discharge planning meeting: No current outpatient treatment options, unwilling to accept assistance to complete visa or [place] applications, no way to get medications and no outpatient clinicians available. -Remains unwilling to explore options for fpc/housing. -File for 304 hearing to be held next week. 08/16 - Meeting held today with patient's CM and social worker masters - patient provided verbal permission to work with CM while in the hospital and to allow her to coordinate with [facility] and the patient's brother - We continue to explore possible options for ongoing Invega Sustenna injections - patient did receive her second initiation injection today - 304 hearing scheduled for 08/20 at 10:00 08/18 - Continue PO Invega given severity of psychosis and fact that she is tolerating it well. 08/19 -Continue current treatment plan; 304 hearing tomorrow; will coordinate with her [facility] after regarding discharge planning. Many barriers, including illegal status in this country, lack of insurance or income, lack of family support, and homelessness. Additionally, her psychosis is impairing her from participating fully in discharge planning, as she has a delusion that she owns a home in [place] and can go there, so is unwilling to work with us for alternative housing options. She additionally does not appear to appreciate her lack of resources, for example has no way to get food or emergency fpc if needed, but is unconcerned about this. She currently has a PFA from multiple family members against her, but likewise does not recognize this, and has already violated it multiple times since she was released from longterm. 08/20 -304 held and granted. Continue current meds (li and Invega Sustenna and PO). -Continue discharge planning: [facility] and [facility] exploring options for [facility]OC/outpatient care ([facility], how to get medications covered). Continue to encourage patient to complete necessary applications ([place]isa, [place]) to access services, and to accept help w/ housing (currently limited by her psychosis). -Patient continues to endorse delusions, does not believe that her family has a PFA against her. We will attempt to get a copy of the PFA in Mal[place]ian for her. 08/21 - Continue current medication regimen - patient reports feeling as though the medications are helpful. Stating she understands the benefit of medications and will continue both the injections and oral medications on discharge. - Referrals placed to [facility] for outpatient treatment on an IOC. Will continue attempts to work with patient to complete applications for her Visa/[place]. 08/22 - Continue current medication regimen - Continue to engage patient in meetings with her outpatient rn case manager hospice to coordinate discharge plans - pt is agreeable with outpatient follow-up at [facility], but is still not able to provide a reliable address and is not willing to consider alternative shelters, even ones that involve bilingual staff 08/23 - Continue current medication regimen - Meeting held today with [facility] representatives to discuss discharge planning - there is reportedly potential that [facility] may detain and deport the patient based on numerous violations of the PFA, but no clear details of this timeline at this time. - Continue attempts to engage the patient in treatment, but she remains very irritable and tolerance with conversations regarding discharge planning are very limited. (2) Noncompliance with medication regimen: 08/04/19 - The patient indicates that she has stopped taking her medicine because the names of the directions for the medications are in [place] African and she cannot read them. She also indicates that she no longer has access to her medications and has not taken any for approximately 5 days. The patient also claims to not recall the names of any of her medications and reports that she does not have the conditions for which her known medications are clearly intended. She also seems not to be oriented to year, and memory deficits on testing suggests that there may be some cognitive impairment as well. -The patient's underlying psychiatric condition will be actively treated. It is hoped that with treatment we will be able to better assess whether the patient can independently manage medications, or if she will need active assistance in this regard when she returns to the community. -She has a history of favorably responding to risperidone. We will start the patient on risperidone M tabs at her reported outpatient recommended dose, and as tolerated we will talk to the patient about converting to a Depo form of risperidone, given her history of medication nonadherence. 08/04 -Has been compliant with lithium and Risperdal in the hospital -reviewed Li 0.2 on 08/03/1908/07 - Would benefit from CANTOR and will explore options once we know where she will get outpatient treatment. Barriers include finances, lack of insurance, homelessness, lack of supports, poor insight. 08/12-reviewed. 08/14 - Pt was started on Invega Sustenna 234mg on 08/13/2019, can receive second injection as soon as 08/17/2019 - Will need to discuss ability to continue the injections with the BSU and CVIM at tomorrow's discharge planning meeting 08/15 -Patient more irritable, stating she will not take medications or accept further injections. -Discharge planning meeting held with BSU and CVIM; patient has many barriers to accessing treatment, including lack of valid visa, lack of insurance or funding, county's unwillingness to provide treatment, and inability to get medication. She is homeless, has no support from family, and has legal problems. She will need a 304 IOC. 08/16 - Patient has now completed the initiation series of injections for Invega Sustenna - continue attempts to ensure patient can receive the injections on an outpatient basis (3) Homeless: 08/04/19 -Until recently, the patient reportedly had been living in a motel room and a "[employer]" motel in [place]. This accommodation was provided through a local benevolent organization known as "[employer]." However, this organization has notified us today that they were only able to provide accommodations during cold weather seasons and that, accordingly, they will not be able to provide accommodations over the balance of the spring, summer, and early derian. -In the past, the patient is live with family members. However, this is clearly not an option at the present time. The context is that the patient reportedly was in retirement for approximately a year because of her making terroristic threats against the family. While it does seem clear that the family wants to help protect her, they are unable to safely provide fpc. Given the patient's history of neglect of self-care, medication nonadherence, and possible cognitive deficits we are going to investigate structured residential programs as part of our discharge planning. 08/09 -Outpatient rn case manager hospice reports that 2 shelters with bilingual staff were identified prior to the patient leaving longterm -[facility] and [facility] in [place]. She remains unwilling to explore housing options, expressing a delusion that she owns a home locally that she can return to. She also believes that her family is living in her home and preventing her from using it. Her outpatient rn case manager hospice reports there is an active PFA against the patient from her family, which limits our ability to involve them in treatment. She also reports that the [employer] and [facility] were both notified of the patient's illegal status in this country, but declined to deport her to [place]. 08/10 - Pt continues to verbalize anticipated discharge plans that cannot be confirmed and communication is limited by patient's refusal and PFAs against various family members. - Pt now stating that she is planning to live with her mother in [place] and that she will be picking her up on discharge - patient also admits that she has had no communication with her mother since her admission. 08/18 -Patient continues to refuse assistance with housing, insisting she owns a house and in fact "many houses," and gave us an address that is not real 08/21 - Confirmed that patient's brother, Earle, is not listed on the PFA - phone call placed to gather collateral information, discuss housing options 08/22 - Pt is now saying she remembers her address is "[facility] ([facility] [address]", but is unable to give a description of surrounding landmarks. Multiple internet searches have been conducted with no matching information - Pt is declining offers to explore bilingual shelters or [facility] which reportedly has bilingual staff. Inventory Assets Strengths: Agrees to take medications. Basically cooperative with treatment. Pleasant on approach. Concerned family members. Needs: Resolution of psychotic features. Medication adherence. Stable living environment. Risk Factors Assessment Male: No : No Do You Have Access To A Gun?: No Health Problems: Yes Mental Health Diagnoses: Yes Substance Use Disorders: Yes (Patient makes reference to smoking marijuana, but does not clear if this is something that is done regularly or if it interferes anyway with her functioning.) Previous Attempt: No (The patient insists that she does not have a history of intentional self injury. 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 303 granted on 08/08/2019, and 304 scheduled for 08/21/2019. Chief Complaint "Fine, thank you." Review of Systems Notes Pt did not verbalize any physical complaints. Ability complete full ROS was limited by patient's cooperation. Sleep Information Total Hours of Sleep: 6.75 Sleep Comments: pt on q-15 minute checks Meal Information Percent Meal Consumed - Breakfast: 100 Percent Meal Consumed - Lunch: 100 Percent Meal Consumed - Dinner: 100 Nutrition Comment: per meal record Subjective Subjective Patient was seen & assessed and interval progress reviewed with nursing and social work. Staff report the patient has been tending to ADLs and slept for 6.75 hours last evening. There is a meeting scheduled for this morning with [facility] health representatives to discuss discharge planning. Pt was seen today to assess progress since admission. This provider and [facility] social worker masters met with the patient and communicated via [employer] interpretive services on the [employer] #[id number]. Pt began the conversation with a very polite tone and cooperative behavior, but quickly grew irritable and argumentative. Pt indicates that she is feeling "fine" today. When asked if her eventual plan was to return to [place], the patient states "No. I'm going to be here for a little while, I'm not sure." Interestingly, the patient seemed shocked when patient was informed that we had been attempting to contact her brother. Pt stated " what for? He doesn't have a telephone number." Pt reports that she was under the impression her brother was going to be visiting today, as "I was told I yesterday I would be leaving today." Pt was informed that there was no discussion that she would be discharged today. The remainder of the conversation was unfortunately difficult, as patient was becoming upset and did not allow time for translation to occur before speaking again. Bits of the translated conversation include: "I'm calling the police, or you will release me now", "I'm not frustrated, I don't want to be here", and "you went back on your word, I don't want to be here any longer." Pt declined to continue conversation, stating "please, no more. No more." Physical Exam Psychiatric Orientation: alert, oriented x 3 and + guarded (uncooperative and argumentative) Apperance: appropriately dressed, appropriately groomed and appeared stated age Showering daily, casually dressed in leggings and t-shirt Eye Contact: + fair eye contact Motor Behavior: + psychomotor agitation (restlessness and visible irritability) Speech: + abnormal rate/rhythm/volume of speech (rapid speech, irritable tone) Affect: + angry affect; + mood not congruent with affect (despite patient being visibly angry, she claims she is not frustrated) Mood: "fine", denies being angry or frustrated despite behaving in a manner that strongly suggests she is upset Thought Process: + tangential thought process and + perseveration (on discharge, demanding release) Thought Content: + preoccupation, + delusions and + persecution Hallucinations: Pt does mumble statements under her breath that are not able to be translated, cannot rule out that patient is still responding to internal stimuli. Cognition: language grossly intact; + recent memory not intact and + attention not intact Insight: + severely impaired insight Judgement: + severely impaired judgement Vital Signs (Past 24 Hours) Last Vital Signs Temp 36.6 C 08/24/19 07:30 Pulse 72 08/24/19 07:30 Resp 18 08/24/19 07:30 BP 139/78 08/24/19 07:30 Pulse Ox 95 08/03/19 21:25 Results & Data ([facility]) Current Inpatient Medications Current Inpatient Medications: Current Inpatient Medications Acetaminophen (Tylenol) 650 mg PO Q4H PRN PRN Reason: Headache or Minor Fever Stop: 09/02/19 20:46 Last Admin: 08/13/19 12:29 Dose: 650 mg Documented by: Al Hydrox/Mg Hydrox/Simethicone (Maalox) 30 ml PO Q4H PRN PRN Reason: GI Upset Stop: 09/02/19 20:46 Bismuth Subsalicylate (Kaopectate) 15 ml PO PRN PRN PRN Reason: Loose Stool Stop: 09/02/19 20:46 Diphenhydramine HCl (Benadryl Capsule) 50 mg PO BID [facility] Stop: 09/03/19 10:59 Last Admin: 08/24/19 08:30 Dose: 50 mg Documented by: Hydroxyzine HCl (Vistaril) 50 mg PO HSZ PRN PRN Reason: Insomnia Stop: 09/02/19 20:46 Hydroxyzine HCl (Vistaril) 25 mg PO Q4H PRN PRN Reason: Anxiety Stop: 09/02/19 20:46 Levothyroxine Sodium (Synthroid) 75 mcg PO DAILYBB [facility] Stop: 09/04/19 07:59 Last Admin: 08/24/19 08:30 Dose: 75 mcg Documented by: [place] Carbonate ([place] Carbonate) 450 mg PO BID [facility] Stop: 09/09/19 08:59 Last Admin: 08/24/19 08:30 Dose: 450 mg Documented by: Loratadine (Claritin) 10 mg PO QAM CLARISA Stop: 09/03/19 10:59 Last Admin: 08/24/19 08:30 Dose: 10 mg Documented by: Magnesium Hydroxide (Milk Of Magnesia) 30 ml PO DAILY PRN PRN Reason: Constipation Stop: 09/02/19 20:46 Paliperidone (Invega) 6 mg PO QAM CLARISA Stop: 09/10/19 08:59 Last Admin: 08/24/19 08:30 Dose: 6 mg Documented by: Pantoprazole Sodium (Protonix) 40 mg PO HS CLARISA Stop: 09/03/19 21:59 Last Admin: 08/23/19 20:57 Dose: 40 mg Documented by: Simethicone (Mylicon) 80 mg PO TID PRN PRN Reason: Gas or Constipation Stop: 09/03/19 13:59 Simvastatin (Zocor) 10 mg PO HS CLARISA Stop: 09/03/19 21:59 Last Admin: 08/23/19 20:57 Dose: 10 mg Documented by: Sodium Chloride ([place] Nasal) 1 - 2 sprays NA PRN PRN PRN Reason: Nasal Dryness/Congestion Stop: 09/02/19 20:46 Mental Health & Subst Abuse Tx Psychiatrist Name of Psychiatrist: Jackelin Psychiatrist's Psychiatric Appointment Comment: [address] [facility] [address] Therapist Name of Therapist: Mat Hernandez Therapist's Date of Therapist Appointment: 09/14/19 Time of Therapist Appointment: 11:00 Therapy Appointment Comment: This will be the intake appt, with referral to Dr. Hayes for Sunday 09/17 Therapist Release of Information: Obtained, Reviewed and Signed Dat Instructor Name of Dat Instructor: [facility] Lizzy Phone Number for Dat Instructor: [phone] Post Discharge Appointments Contact Information Discharge Phone Number: Unknown Discharge Address: No known address (1) Schizophrenia Schizophrenia type: unspecified Qualified Code(s): F20.9 - Schizophrenia, unspecified
[2019-08-24] MEDS: SIMVASTATIN 10 MG TAB PO SCH (21:12)
[2019-08-24] MEDS: PANTOprazole 40 MG TAB PO SCH (21:12)
[2019-08-25] MEDS: LEVOTHYROXINE SODIUM 75 MCG TABLET PO SCH (08:05)
[2019-08-25] MEDS: LORATADINE 10 MG TAB PO SCH (08:06)
[2019-08-25] MEDS: LITHIUM CARBONATE 300 MG TAB PO SCH ×2 (08:07→20:50)
[2019-08-25] MEDS: PALIPERIDONE 3 MG TABCR PO SCH (08:07)
--- NOTE | 2019-08-25 09:03 | Psychiatric Progress Note ---
Date of Service August 25, 2019 Impression / Recommendations Impression 63-year-old female from [place] who has a history of schizophrenia vs schizoaffective disorder and was admitted after 2 ER visits in 1 week for psychosis and inability to care for herself. She presented on a 302 commitment following a petition by her grandson stating she told him that she was going to shoot herself with a gun. She was imprisoned for approximately 1 year on charges of making terroristic threats, and was released 07/24, but was not taking medications and was homeless. She had been seen in the emergency room during the previous weekend and released after several days of stable behavior in the ER. [employer] was paying for a hotel room for her, but she left and was sleeping "on the streets" for at least several days, during which time overnight temperatures were below freezing. Reports from community providers are that she has been neglecting self-care, not attending to her personal needs, not taking her medicines, and not eating. She violated the PFA that her family members have against her, going to their place of business on the day of presentation. 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 She is demonstrating paranoia and responding to auditory and visual hallucinations. She is on a 303 as of 08/07, and a 304 as of 08/20. Inpatient treatment is medically necessary as she is severely mentally ill and unable to provide for her own basic needs as a result, and additionally threatened to kill herself as detailed in the 302 petition. Received first dose of Invega Sustenna on 08/12, second on 08/16, and po Invega has been continued due to ongoing psychotic symptoms. She is on a 304 commitment as of 08/21/2019, and we are working with the [facility] to explore options for outpatient treatment/supports - additional meeting held on 08/24/2019. (1) Schizophrenia: 08/04/19 -The patient has been admitted to the locked, secured behavioral health unit and has been placed in special observation room. She is also being monitored with close observations and every 15-minute direct observation. When more stable she will be actively encouraged to participate in individual, group, and activity therapies. We will also attempt to involve the family if the patient permits us to and if they agree. -Although she was given a diagnosis of schizophrenia in the emergency room, the record, and the patient's presentation, is more consistent with a diagnosis of schizoaffective disorder, bipolar type. She has a reported history of responding favorably to risperidone, and, in addition, she had been prescribed lithium carbonate prior to admission. The issue may be nonadherence with these medications, and the first plan is to restart them at risperidone 3 mg in the morning and 4 mg at bedtime (oral dissolving tablets to help assure adherence) and lithium carbonate 300 mg twice a day with a plan to check her lithium level next week. 08/04 -Interview was difficult again today due to apparent paranoia and lability of affect while utilizing supervisor salvage services. Cannot rule out cognitive dysfunction in addition to psychosis. Appears she was not restarted on AM dose of risperdal yesterday. Will attempt to reconfirm prior home dose before restarting due to higher risk for SE at that dose and increased risk for EPS if titrated too quickly. We will continue to expand database as able. 08/05 -Affect remains odd and suspicious however she has not been overtly agitated or aggressive. -We will add 2 mg morning dose of Risperdal tomorrow working towards home dose of 3 mg in the morning and 4mg at bedtime -Ordered fasting glucose and lipids for a.m. for monitoring on atypical antipsychotic 08/06 -Patient remains psychotic, delusional, unable to come up with a reasonable discharge plan (today states she owns a house in [place] that she just bought, but wants the address and does not know where it is). She denies that her family has a PFA against her or that she has any legal problems. She is not a reliable historian, and we will reach out to her [facility] to try to get additional collateral information. -303 hearing scheduled for tomorrow, will request a discharge planning meeting with the [facility] afterwards. -Continue lithium and risperidone, and explore options for outpatient treatment/obtaining medications given her lack of resources. -Fasting labs reviewed for monitoring on an atypical antipsychotic; glucose 109, cholesterol 221, remainder within normal limits. 08/07 -303 hearing held and granted. Recommend 304 IOC given her history of treatment noncompliance, lack of insight, frequent hospitalizations, and severity of psychotic symptoms and erratic, unsafe behavior when acutely psychotic. -Request records from psychiatric treatment while incarcerated. Patient refused to sign INO for [facility] (where she was referred for outpatient treatment during her 2018 hospitalization here). -Get collateral information from family, as patient reports they were helping her to establish housing. She signed an INO for her grandson who was also the 302 petitioner. -Discharge planning meeting with [facility] Lizzy Pandey. Explore options for housing assistance and OP care (numerous barriers including language, lack of resources/income, citizenship, lack of insurance, poor insight and adherence). -Continue risperidone and increase to 3mg qam and 4mg hs. Explore options for CANTOR (will depend largely on where/how she will access OP care, as no insurance so will have to explore ways to get CANTOR covered). Check w/ CV re: ability to supply/administer CANTOR. -Continue lithium and check trough level tomorrow. 08/08 - Pt declines feeling a need to adjust medications - Attempted to discuss subtherapeutic lithium level (0.4) - will offer patient 600mg tonight and continue the 300mg dose each morning - Limited ability to communicate with supervisor salvage service today, as patient does not speak at a volume loud enough for supervisor salvage to accurately translate despite many attempts to coach mechanic patient - Awaiting additional communication from [facility] regarding CANTOR options available 08/09 -Tonalea dose increased today to 450 mg twice daily; recheck trough level after 5 days (08/15/2019). -Change risperidone to paliperidone, with plan to transition to Invega Sustenna if it is effective and well-tolerated. Sustenna preferred over Risperdal Consta as it can be administered every 4 weeks instead of every 2. She already received her morning dose of risperidone, so will give 3 mg of paliperidone tonight, and 6 mg once daily starting tomorrow. -Patient has now signed releases for [facility] and [facility], so we will request records to clarify previous psychiatric treatment and response. 08/10 - Continue lithium 450mg BID, lithium level scheduled for 08/15/2019 - Continue paliperidone 6mg qAM - ongoing attempts to coordinate with [facility] regarding CANTOR options. Patient's lack of Social Security Number is possibly a barrier to applying for patient assistance programs for medications. Could consider titration of paliperidone to 9mg daily if tolerated. - Meeting between our team, the BSU and CV has been scheduled for 08/15 to discuss aftercare and discharge planning 08/11 - monitor for ongoing improvement on higher dose of Tonalea and Invega, will be converted to injectable if means to continue outpatient. 08/12 --Reviewed. Will give first of 2 Invega loading injections today, no clear aftercare plan in place so primary team can determine timing of/need for 2nd injection. At minimum she would have more coverage with medication when leaves the hospital. Ideally she would have discharge instructions/biomedical equipment specialist instructions in [place]errat[place]. 08/13 - Currently patient seems more restless, not accepting of need for discharge planning and given her history of incarceration I believe this is the cause rather than worsening bipolar. Will monitor. Explained to patient court order (commitment) at this time and need for county meeting. Encouraged her to consider assistance with relocation to a city with more malian speaking people, like [place] or previous care home offered. Plan: lithium level in am, states she won't take PO meds after discharge. 08/14 - Continue current medication regimen - patient can be given second loading dose of Invega Sustenna as early as 08/16 - Tonalea level obtained this morning - within therapeutic range at 0.7. Can consider further titration as indicated. - Electrolytes obtained with AM blood work as well. Sodium level is slightly low at 135; all other values were WNL - Pt continues to be preoccupied with discharge, but is able to verbalize desire to continue medications as prescribed on an outpatient basis - Discharge planning meeting is scheduled for tomorrow with the BSU and CV 08/15 -Discharge planning meeting: No current outpatient treatment options, unwilling to accept assistance to complete visa or [place] applications, no way to get medications and no outpatient clinicians available. -Remains unwilling to explore options for care home/housing. -File for 304 hearing to be held next week. 08/16 - Meeting held today with patient's CM and clinical social work therapist - patient provided verbal permission to work with CM while in the hospital and to allow her to coordinate with [facility] and the patient's brother - We continue to explore possible options for ongoing Invega Sustenna injections - patient did receive her second initiation injection today - 304 hearing scheduled for 08/20 at 10:00 08/18 - Continue PO Invega given severity of psychosis and fact that she is tolerating it well. 08/19 -Continue current treatment plan; 304 hearing tomorrow; will coordinate with her [facility] after regarding discharge planning. Many barriers, including illegal status in this country, lack of insurance or income, lack of family support, and homelessness. Additionally, her psychosis is impairing her from participating fully in discharge planning, as she has a delusion that she owns a home in [place] and can go there, so is unwilling to work with us for alternative housing options. She additionally does not appear to appreciate her lack of resources, for example has no way to get food or emergency care home if needed, but is unconcerned about this. She currently has a PFA from multiple family members against her, but likewise does not recognize this, and has already violated it multiple times since she was released from longterm. 08/20 -304 held and granted. Continue current meds (li and Invega Sustenna and PO). -Continue discharge planning: [facility] and [facility] exploring options for IOC/outpatient care ([facility], how to get medications covered). Continue to encourage patient to complete necessary applications ([place]isa, [place]) to access services, and to accept help w/ housing (currently limited by her psychosis). -Patient continues to endorse delusions, does not believe that her family has a PFA against her. We will attempt to get a copy of the PFA in [place] for her. 08/21 - Continue current medication regimen - patient reports feeling as though the medications are helpful. Stating she understands the benefit of medications and will continue both the injections and oral medications on discharge. - Referrals placed to [facility] for outpatient treatment on an IOC. Will continue attempts to work with patient to complete applications for her Visa/[place]. 08/22 - Continue current medication regimen - Continue to engage patient in meetings with her outpatient complex case manager to coordinate discharge plans - pt is agreeable with outpatient follow-up at [facility], but is still not able to provide a reliable address and is not willing to consider alternative shelters, even ones that involve bilingual staff 08/23 - Continue current medication regimen - Meeting held today with [facility] representatives to discuss discharge planning - there is reportedly potential that [facility] may detain and deport the patient based on numerous violations of the PFA, but no clear details of this timeline at this time. - Continue attempts to engage the patient in treatment, but she remains very irritable and tolerance with conversations regarding discharge planning are very limited. 08/24 - Continue current medication regimen - Patient is still requesting immediate discharge and does not need any arrangement for her housing because she has a house to live in, which cannot be confirmed. Further arrangement of her aftercare with definitive timeline will be done before she is discharged. - Patient's engagement in her treatment plan was not obtained well since she has poor insight into her mental illness and was pretty irritated with our plan of her aftercare. (2) Noncompliance with medication regimen: 08/04/19 - The patient indicates that she has stopped taking her medicine because the names of the directions for the medications are in Turkmen and she cannot read them. She also indicates that she no longer has access to her medications and has not taken any for approximately 5 days. The patient also claims to not recall the names of any of her medications and reports that she does not have the conditions for which her known medications are clearly intended. She also seems not to be oriented to year, and memory deficits on testing suggests that there may be some cognitive impairment as well. -The patient's underlying psychiatric condition will be actively treated. It is hoped that with treatment we will be able to better assess whether the patient can independently manage medications, or if she will need active assistance in this regard when she returns to the community. -She has a history of favorably responding to risperidone. We will start the patient on risperidone M tabs at her reported outpatient recommended dose, and as tolerated we will talk to the patient about converting to a Depo form of risperidone, given her history of medication nonadherence. 08/04 -Has been compliant with lithium and Risperdal in the hospital -reviewed Li 0.2 on 08/03/1908/07 - Would benefit from CANTOR and will explore options once we know where she will get outpatient treatment. Barriers include finances, lack of insurance, homelessness, lack of supports, poor insight. 08/12-reviewed. 08/14 - Pt was started on Invega Sustenna 234mg on 08/13/2019, can receive second injection as soon as 08/17/2019 - Will need to discuss ability to continue the injections with the BSU and CVIM at tomorrow's discharge planning meeting 08/15 -Patient more irritable, stating she will not take medications or accept further injections. -Discharge planning meeting held with BSU and CVIM; patient has many barriers to accessing treatment, including lack of valid visa, lack of insurance or funding, county's unwillingness to provide treatment, and inability to get medication. She is homeless, has no support from family, and has legal problems. She will need a 304 IOC. 08/16 - Patient has now completed the initiation series of injections for Invega Sustenna - continue attempts to ensure patient can receive the injections on an outpatient basis (3) Homeless: 08/04/19 -Until recently, the patient reportedly had been living in a motel room and a "[employer]" motel in [place]. This accommodation was provided through a local benevolent organization known as "[employer]." However, this organization has notified us today that they were only able to provide accommodations during cold weather seasons and that, accordingly, they will not be able to provide accommodations over the balance of the spring, summer, and early [place]. -In the past, the patient is live with family members. However, this is clearly not an option at the present time. The context is that the patient reportedly was in alf for approximately a year because of her making terroristic threats against the family. While it does seem clear that the family wants to help protect her, they are unable to safely provide care home. Given the patient's history of neglect of self-care, medication nonadherence, and possible cognitive deficits we are going to investigate structured residential programs as part of our discharge planning. 08/09 -Outpatient complex case manager reports that 2 shelters with bilingual staff were identified prior to the patient leaving longterm -[facility] and [facility] in [place]. She remains unwilling to explore housing options, expressing a delusion that she owns a home locally that she can return to. She also believes that her family is living in her home and preventing her from using it. Her outpatient complex case manager reports there is an active PFA against the patient from her family, which limits our ability to involve them in treatment. She also reports that the Department of [place] [employer] and [facility] were both notified of the patient's illegal status in this country, but declined to deport her to [place]. 08/10 - Pt continues to verbalize anticipated discharge plans that cannot be confirmed and communication is limited by patient's refusal and PFAs against various family members. - Pt now stating that she is planning to live with her mother in [place] and that she will be picking her up on discharge - patient also admits that she has had no communication with her mother since her admission. 08/18 -Patient continues to refuse assistance with housing, insisting she owns a house and in fact "many houses," and gave us an address that is not real 08/21 - Confirmed that patient's brother, Earle, is not listed on the PFA - phone call placed to gather collateral information, discuss housing options 08/22 - Pt is now saying she remembers her address is "[address] but is unable to give a description of surrounding landmarks. Multiple internet searches have been conducted with no matching information - Pt is declining offers to explore bilingual shelters or [facility] which reportedly has bilingual staff. Inventory Assets Strengths: Agrees to take medications. Basically cooperative with treatment. Pleasant on approach. Concerned family members. Needs: Resolution of psychotic features. Medication adherence. Stable living environment. Risk Factors Assessment Male: No : No Do You Have Access To A Gun?: No Health Problems: Yes Mental Health Diagnoses: Yes Substance Use Disorders: Yes (Patient makes reference to smoking marijuana, but does not clear if this is something that is done regularly or if it interferes anyway with her functioning.) Previous Attempt: No (The patient insists that she does not have a history of intentional self injury. 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 303 granted on 08/08/2019, and 304 scheduled for 08/21/2019. Chief Complaint "I am good". Review of Systems Notes Constitutional: denied cardiovascular: denied Respiratory: denied GI: denied Neurologic: denied Psychiatric: denies symptoms other than stated above Remainder of 10 body systems also reviewed and denied other than noted above. Sleep Information Total Hours of Sleep: 8.25 Sleep Comments: pt on q-15 minute checks Meal Information Percent Meal Consumed - Breakfast: 100 Percent Meal Consumed - Lunch: 100 Percent Meal Consumed - Dinner: 100 Nutrition Comment: per meal record Subjective Subjective Patient was seen & assessed and interval progress reviewed with treatment team. Staff reports that she has been attending her ADLs without significant problems but refusing meeting or groups except a couple of exercise group activities, spending her free time by herself in her room mostly. Slept more than 8 hours last night. Patient was seen today to assess progress since admission. This provider and [facility] clinical social work therapist met with the patient and communicated via [employer] interpretive services on the [employer] #[id number]. Her treatment plan was reviewed with [facility] clinical social work therapist. At first she was calm and superficially cooperative but she got pretty upset and agitated when she was informed of her length of stay, saying "you keep saying 7 days for my length of stay every day." Afterward she started to mumble some words under her breath in Monts[place]ian. Also when she was informed we are working on her housing after discharge, she was pretty irritated, stating "I do have a house. You do not need to arrange my housing." She says her mood is good and she does not need any change in her medications, saying "I take my medications without side effects every day. " She reports that she does not have any goals during the hospitalization and denies concerns or questions. Physical Exam Psychiatric Orientation: alert, oriented x 3, cooperative (superficially) and + guarded Apperance: appropriately dressed and appropriately groomed Eye Contact: + fair eye contact Motor Behavior: steady gait and station; no psychomotor agitation Speech: + abnormal rate/rhythm/volume of speech occasionally mumbling softly Affect: + flat affect, + irritable affect and + angry affect Irritated and upset when we were talking about her length of stay, saying "you guys keeps saying the same length of stay, 7 days, every day. " Mood: no irritable mood and no angry mood Patient states her mood is good Thought Process: + perseveration (Regarding date of discharge and her housing) Thought Content: + cognitive distortions Suicidal Thoughts: denies suicidal thoughts Homicidal Thoughts: denies homicidal thoughts Hallucinations: no auditory hallucinations and no visual hallucinations She was mumbling some words softly in [place]ian, which was not translated, and response to internal stimuli can't be ruled out. However, pt clearly denies auditory or visual hallucinations. Cognition: attention grossly intact and language grossly intact Insight: + severely impaired insight Judgement: + severely impaired judgement Vital Signs (Past 24 Hours) Last Vital Signs Temp 36.4 C L 08/25/19 06:28 Pulse 90 08/25/19 06:29 Resp 18 08/25/19 06:28 BP 145/78 H 08/25/19 06:29 Pulse Ox 95 08/03/19 21:25 Results & Data ([facility]) Current Inpatient Medications Current Inpatient Medications: Current Inpatient Medications Acetaminophen (Tylenol) 650 mg PO Q4H PRN PRN Reason: Headache or Minor Fever Stop: 09/02/19 20:46 Last Admin: 08/13/19 12:29 Dose: 650 mg Documented by: Al Hydrox/Mg Hydrox/Simethicone (Maalox) 30 ml PO Q4H PRN PRN Reason: GI Upset Stop: 09/02/19 20:46 Bismuth Subsalicylate (Kaopectate) 15 ml PO PRN PRN PRN Reason: Loose Stool Stop: 09/02/19 20:46 Diphenhydramine HCl (Benadryl Capsule) 50 mg PO BID [facility] Stop: 09/03/19 10:59 Last Admin: 08/25/19 08:05 Dose: 50 mg Documented by: Hydroxyzine HCl (Vistaril) 50 mg PO HSZ PRN PRN Reason: Insomnia Stop: 09/02/19 20:46 Hydroxyzine HCl (Vistaril) 25 mg PO Q4H PRN PRN Reason: Anxiety Stop: 09/02/19 20:46 Levothyroxine Sodium (Synthroid) 75 mcg PO DAILYBB [facility] Stop: 09/04/19 07:59 Last Admin: 06/05/20 08:05 Dose: 75 mcg Documented by: [place]alea Carbonate (Tonalea Carbonate) 450 mg PO BID [facility] Stop: 09/09/19 08:59 Last Admin: 08/25/19 08:07 Dose: 450 mg Documented by: Loratadine (Claritin) 10 mg PO QAM [facility] Stop: 09/03/19 10:59 Last Admin: 08/25/19 08:06 Dose: 10 mg Documented by: Magnesium Hydroxide (Milk Of Magnesia) 30 ml PO DAILY PRN PRN Reason: Constipation Stop: 09/02/19 20:46 Paliperidone (Invega) 6 mg PO QAM [facility] Stop: 09/10/19 08:59 Last Admin: 08/25/19 08:07 Dose: 6 mg Documented by: Pantoprazole Sodium (Protonix) 40 mg PO HS [facility] Stop: 09/03/19 21:59 Last Admin: 08/24/19 21:12 Dose: 40 mg Documented by: Simethicone (Mylicon) 80 mg PO TID PRN PRN Reason: Gas or Constipation Stop: 09/03/19 13:59 Simvastatin (Zocor) 10 mg PO HS [facility] Stop: 09/03/19 21:59 Last Admin: 08/24/19 21:12 Dose: 10 mg Documented by: Sodium Chloride ([place] Nasal) 1 - 2 sprays NA PRN PRN PRN Reason: Nasal Dryness/Congestion Stop: 09/02/19 20:46 Mental Health & Subst Abuse Tx Psychiatrist Name of Psychiatrist: Jackelin Psychiatrist's Psychiatric Appointment Comment: [address] [facility] [id number] Therapist Name of Therapist: Jackelin Hernandez Therapist's Date of Therapist Appointment: 09/14/19 Time of Therapist Appointment: 11:00 a.m. Therapy Appointment Comment: This will be the intake appt, with referral to Dr. Hayes for Sunday 09/17 Therapist Release of Information: Obtained, Reviewed and Signed Online Publisher Name of Online Publisher: [facility] Katherine Ball Phone Number for Online Publisher: [phone] Post Discharge Appointments Contact Information Discharge Phone Number: Unknown Discharge Address: No known address (1) Schizophrenia Schizophrenia type: unspecified Qualified Code(s): F20.9 - Schizophrenia, unspecified
[2019-08-25] MEDS: PANTOprazole 40 MG TAB PO SCH (20:51)
[2019-08-25] MEDS: SIMVASTATIN 10 MG TAB PO SCH (20:52)
[2019-08-26] MEDS: PALIPERIDONE 3 MG TABCR PO SCH (08:29)
[2019-08-26] MEDS: LEVOTHYROXINE SODIUM 75 MCG TABLET PO SCH (08:29)
[2019-08-26] MEDS: LITHIUM CARBONATE 300 MG TAB PO SCH ×2 (08:29→20:52)
[2019-08-26] MEDS: LORATADINE 10 MG TAB PO SCH (08:29)
--- NOTE | 2019-08-26 12:51 | Psychiatric Progress Note ---
Date of Service August 26, 2019 Impression / Recommendations Impression 63-year-old female from [place] who has a history of schizophrenia vs schizoaffective disorder and was admitted after 2 ER visits in 1 week for psychosis and inability to care for herself. She presented on a 302 commitment following a petition by her grandson stating she told him that she was going to shoot herself with a gun. She was imprisoned for approximately 1 year on charges of making terroristic threats, and was released 07/24, but was not taking medications and was homeless. She had been seen in the emergency room during the previous weekend and released after several days of stable behavior in the ER. [employer] was paying for a hotel room for her, but she left and was sleeping "on the streets" for at least several days, during which time overnight temperatures were below freezing. Reports from community providers are that she has been neglecting self-care, not attending to her personal needs, not taking her medicines, and not eating. She violated the PFA that her family members have against her, going to their place of business on the day of presentation. 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 She is demonstrating paranoia and responding to auditory and visual hallucinations. She is on a 303 as of 08/07, and a 304 as of 08/20. Inpatient treatment is medically necessary as she is severely mentally ill and unable to provide for her own basic needs as a result, and additionally threatened to kill herself as detailed in the 302 petition. Received first dose of Invega Sustenna on 08/12, second on 08/16, and po Invega has been continued due to ongoing psychotic symptoms. She is on a 304 commitment as of 08/21/2019, and we are working with the [facility] to explore options for outpatient treatment/supports - additional meeting held on 08/24/2019. Reviewed--bipolar disorder improved since last contact, given hx of incarceration not surprising she is focussed on discharge, [facility] is attempting to clarify status with immigration as f/u options are limited and no local supports. Continue current meds and tx plan. Inventory Assets Strengths: Agrees to take medications. Basically cooperative with treatment. Pleasant on approach. Concerned family members. Needs: Resolution of psychotic features. Medication adherence. Stable living environment. Risk Factors Assessment Male: No : No Do You Have Access To A Gun?: No Health Problems: Yes Mental Health Diagnoses: Yes Substance Use Disorders: Yes (Patient makes reference to smoking marijuana, but does not clear if this is something that is done regularly or if it interferes anyway with her functioning.) Previous Attempt: No (The patient insists that she does not have a history of intentional self injury. 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 303 granted on 08/08/2019, and 304 sc heduled for 08/21/2019. Chief Complaint "Can I leave today". declined malay interpretor Review of Systems Sleep Information Total Hours of Sleep: 5.75 Sleep Comments: awake at 0545-asleep on 2315 rounds Meal Information Percent Meal Consumed - Breakfast: 100 Percent Meal Consumed - Lunch: 100 Percent Meal Consumed - Dinner: 100 Nutrition Comment: ducumented from the pt. meal record Subjective Subjective Patient was seen & assessed and interval progress reviewed with nursing and social work, pleasant per staff except around length of stay. She asks questions repeatedly and one questions whether other cognitive changes since last contact. She doesn't have pressured speech or as much restlessness any more but does pace on unit due to boredom. She says doesn't want to watch tv even if Uz[place] subtitles, etc. She does not understand county concerns re: homelessness. Physical Exam Psychiatric Orientation: alert, oriented to person, oriented to place and cooperative (superficially) Apperance: appropriately dressed, appropriately groomed and appeared stated age Eye Contact: good eye contact Motor Behavior: steady gait and station; no psychomotor agitation Speech: no pressured speech Affect: + depressed affect (solely around discharge) Mood: no anxious mood and no angry mood Thought Process: + perseveration (Regarding date of discharge and her housing) and + concrete thought process (disorganized ) Thought Content: + preoccupation Suicidal Thoughts: denies suicidal thoughts and denies suicidal intent Homicidal Thoughts: denies homicidal thoughts and denies homicidal intent Hallucinations: no auditory hallucinations and no visual hallucinations Cognition: attention grossly intact and language grossly intact; + recent memory not intact and + remote memory not intact Estimated Intelligence: average estimated intelligence and consistent with education level Insight: + poor insight (chronic), + impaired insight and + severely impaired insight Judgement: + poor judgement (chronic), + impaired judgement and + severely impaired judgement Vital Signs (Past 24 Hours) Last Vital Signs Temp 36.7 C 08/26/19 06:06 Pulse 83 08/26/19 06:06 Resp 18 08/26/19 06:06 BP 144/78 H 08/26/19 06:06 Pulse Ox 95 08/03/19 21:25 Results & Data ([facility]) Current Inpatient Medications Current Inpatient Medications: Current Inpatient Medications Acetaminophen (Tylenol) 650 mg PO Q4H PRN PRN Reason: Headache or Minor Fever Stop: 09/02/19 20:46 Last Admin: 08/13/19 12:29 Dose: 650 mg Documented by: Al Hydrox/Mg Hydrox/Simethicone (Maalox) 30 ml PO Q4H PRN PRN Reason: GI Upset Stop: 09/02/19 20:46 Bismuth Subsalicylate (Kaopectate) 15 ml PO PRN PRN PRN Reason: Loose Stool Stop: 09/02/19 20:46 Diphenhydramine HCl (Benadryl Capsule) 50 mg PO BID [facility] Stop: 09/03/19 10:59 Last Admin: 08/26/19 08:29 Dose: 50 mg Documented by: Hydroxyzine HCl (Vistaril) 50 mg PO HSZ PRN PRN Reason: Insomnia Stop: 09/02/19 20:46 Hydroxyzine HCl (Vistaril) 25 mg PO Q4H PRN PRN Reason: Anxiety Stop: 09/02/19 20:46 Levothyroxine Sodium (Synthroid) 75 mcg PO DAILYBB [facility] Stop: 09/04/19 07:59 Last Admin: 08/26/19 08:29 Dose: 75 mcg Documented by: Keddie Carbonate (Keddie Carbonate) 450 mg PO BID [facility] Stop: 09/09/19 08:59 Last Admin: 08/26/19 08:29 Dose: 450 mg Documented by: Loratadine (Claritin) 10 mg PO QAM [facility] Stop: 09/03/19 10:59 Last Admin: 08/26/19 08:29 Dose: 10 mg Documented by: Magnesium Hydroxide (Milk Of Magnesia) 30 ml PO DAILY PRN PRN Reason: Constipation Stop: 09/02/19 20:46 Paliperidone (Invega) 6 mg PO QAM [facility] Stop: 09/10/19 08:59 Last Admin: 08/26/19 08:29 Dose: 6 mg Documented by: Pantoprazole Sodium (Protonix) 40 mg PO HS [facility] Stop: 09/03/19 21:59 Last Admin: 08/25/19 20:51 Dose: 40 mg Documented by: Simethicone (Mylicon) 80 mg PO TID PRN PRN Reason: Gas or Constipation Stop: 09/03/19 13:59 Simvastatin (Zocor) 10 mg PO HS [facility] Stop: 09/03/19 21:59 Last Admin: 08/25/19 20:52 Dose: 10 mg Documented by: Sodium Chloride ([place] Nasal) 1 - 2 sprays NA PRN PRN PRN Reason: Nasal Dryness/Congestion Stop: 09/02/19 20:46 Mental Health & Subst Abuse Tx Psychiatrist Name of Psychiatrist: Jackelin Psychiatrist's [facility] [address] [facility] [address] Therapist Name of Therapist: Jackelin Hernandez Therapist's Date of Therapist Appointment: 09/14/19 Time of Therapist Appointment: 11:00 a.m. Therapy Appointment Comment: This will be the intake appt, with referral to Dr. Hayes for Sunday 09/17 Therapist Release of Information: Obtained, Reviewed and Signed Air Chief Marshal Name of Air Chief Marshal: [facility]zy Phone Number for Air Chief Marshal: [phone] Post Discharge Appointments Contact Information Discharge Phone Number: Unknown Discharge Address: No known address
[2019-08-26] MEDS: SIMVASTATIN 10 MG TAB PO SCH (20:54)
[2019-08-26] MEDS: PANTOprazole 40 MG TAB PO SCH (20:54)
[2019-08-27] MEDS: PALIPERIDONE 3 MG TABCR PO SCH (09:39)
[2019-08-27] MEDS: LITHIUM CARBONATE 300 MG TAB PO SCH ×2 (09:39→21:16)
[2019-08-27] MEDS: LEVOTHYROXINE SODIUM 75 MCG TABLET PO SCH (09:39)
[2019-08-27] MEDS: LORATADINE 10 MG TAB PO SCH (09:39)
--- NOTE | 2019-08-27 11:35 | Psychiatric Progress Note ---
Date of Service August 27, 2019 Impression / Recommendations Impression 63-year-old female from [place] who has a history of schizophrenia vs schizoaffective disorder and was admitted after 2 ER visits in 1 week for psychosis and inability to care for herself. She presented on a 302 commitment following a petition by her grandson stating she told him that she was going to shoot herself with a gun. She was imprisoned for approximately 1 year on charges of making terroristic threats, and was released 07/24, but was not taking medications and was homeless. She had been seen in the emergency room during the previous weekend and released after several days of stable behavior in the ER. [employer] was paying for a hotel room for her, but she left and was sleeping "on the streets" for at least several days, during which time overnight temperatures were below freezing. Reports from community providers are that she has been neglecting self-care, not attending to her personal needs, not taking her medicines, and not eating. She violated the PFA that her family members have against her, going to their place of business on the day of presentation. 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 She is demonstrating paranoia and responding to auditory and visual hallucinations. She is on a 303 as of 08/07, and a 304 as of 08/20. Inpatient treatment is medically necessary as she is severely mentally ill and unable to provide for her own basic needs as a result, and additionally threatened to kill herself as detailed in the 302 petition. Received first dose of Invega Sustenna on 08/12, second on 08/16, and po Invega has been continued due to ongoing psychotic symptoms. She is on a 304 commitment as of 08/21/2019, and we are working with the [facility] to explore options for outpatient treatment/supports - additional meeting held on 08/24/2019. Re-viewed 08/26--bipolar disorder improved since last contact, given hx of incarceration not surprising she is focussed on discharge, [facility] is attempting to clarify status with immigration as f/u options are limited and no local supports. Continue current meds and tx plan. Inventory Assets Strengths: Agrees to take medications. Basically cooperative with treatment. Pleasant on approach. Concerned family members. Needs: Resolution of psychotic features. Medication adherence. Stable living environment. Risk Factors Assessment Male: No : No Do You Have Access To A Gun?: No Health Problems: Yes Mental Health Diagnoses: Yes Substance Use Disorders: Yes (Patient makes reference to smoking marijuana, but does not clear if this is something that is done regularly or if it interferes anyway with her functioning.) Previous Attempt: No (The patient insists that she does not have a history of intentional self injury. 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 303 granted on 08/08/2019, and 304 scheduled for 08/21/2019. Chief Complaint "Can I leave today?". Review of Systems Sleep Information Total Hours of Sleep: 6 Sleep Comments: awake early in morning Meal Information Percent Meal Consumed - Breakfast: 100 Percent Meal Consumed - Lunch: 100 Percent Meal Consumed - Dinner: 100 Nutrition Comment: ducumented from the pt. meal record Subjective Subjective Patient was seen & assessed and interval progress reviewed with nursing and social work. No issues overnight. Eats well. Tolerating meds. Physical Exam Psychiatric Orientation: alert Apperance: appropriately dressed and appropriately groomed Eye Contact: good eye contact Motor Behavior: no abnormal motor movements Speech: normal rate/rhythm/volume of speech Affect: euthymic affect Mood: + anxious mood Thought Process: + perseveration Thought Content: + delusions (that she has a house) Suicidal Thoughts: denies suicidal thoughts Homicidal Thoughts: denies homicidal thoughts Hallucinations: no auditory hallucinations and no visual hallucinations Vital Signs (Past 24 Hours) Last Vital Signs Temp 36.6 C 08/27/19 06:35 Pulse 78 08/27/19 06:35 Resp 18 08/27/19 06:35 BP 153/81 H 08/27/19 06:35 Pulse Ox 95 08/03/19 21:25 Results & Data ([facility]) Current Inpatient Medications Current Inpatient Medications: Current Inpatient Medications Acetaminophen (Tylenol) 650 mg PO Q4H PRN PRN Reason: Headache or Minor Fever Stop: 09/02/19 20:46 Last Admin: 08/13/19 12:29 Dose: 650 mg Documented by: Al Hydrox/Mg Hydrox/Simethicone (Maalox) 30 ml PO Q4H PRN PRN Reason: GI Upset Stop: 09/02/19 20:46 Bismuth Subsalicylate (Kaopectate) 15 ml PO PRN PRN PRN Reason: Loose Stool Stop: 09/02/19 20:46 Diphenhydramine HCl (Benadryl Capsule) 50 mg PO BID [facility] Stop: 09/03/19 10:59 Last Admin: 08/27/19 09:39 Dose: 50 mg Documented by: Hydroxyzine HCl (Vistaril) 50 mg PO HSZ PRN PRN Reason: Insomnia Stop: 09/02/19 20:46 Hydroxyzine HCl (Vistaril) 25 mg PO Q4H PRN PRN Reason: Anxiety Stop: 09/02/19 20:46 Levothyroxine Sodium (Synthroid) 75 mcg PO DAILYBB [facility] Stop: 09/04/19 07:59 Last Admin: 08/27/19 09:39 Dose: 75 mcg Documented by: [place] Carbonate (Ringling Carbonate) 450 mg PO BID [facility] Stop: 09/09/19 08:59 Last Admin: 08/27/19 09:39 Dose: 450 mg Documented by: Loratadine (Claritin) 10 mg PO QAM [facility] Stop: 09/03/19 10:59 Last Admin: 08/27/19 09:39 Dose: 10 mg Documented by: Magnesium Hydroxide (Milk Of Magnesia) 30 ml PO DAILY PRN PRN Reason: Constipation Stop: 09/02/19 20:46 Paliperidone (Invega) 6 mg PO QAM [facility] Stop: 09/10/19 08:59 Last Admin: 08/27/19 09:39 Dose: 6 mg Documented by: Pantoprazole Sodium (Protonix) 40 mg PO HS [facility] Stop: 09/03/19 21:59 Last Admin: 08/26/19 20:54 Dose: 40 mg Documented by: Simethicone (Mylicon) 80 mg PO TID PRN PRN Reason: Gas or Constipation Stop: 09/03/19 13:59 Simvastatin (Zocor) 10 mg PO HS [facility] Stop: 09/03/19 21:59 Last Admin: 08/26/19 20:54 Dose: 10 mg Documented by: Sodium Chloride ([place] Nasal) 1 - 2 sprays NA PRN PRN PRN Reason: Nasal Dryness/Congestion Stop: 09/02/19 20:46 Mental Health & Subst Abuse Tx Psychiatrist Name of Psychiatrist: Jackelin Psychiatrist's Psychiatric Appointment Comment: [address] [facility] [address] Therapist Name of Therapist: Jackelin Hernandez Therapist's Date of Therapist Appointment: 09/14/19 Time of Therapist Appointment: 11:00 a.m. Therapy Appointment Comment: This will be the intake appt, with referral to Dr. Hayes for Sunday 09/17 Therapist Release of Information: Obtained, Reviewed and Signed Transcribing Operators Supervisor Name of Transcribing Operators Supervisor: [facility] Phone Number for Transcribing Operators Supervisor: [phone] Post Discharge Appointments Contact Information Discharge Phone Number: Unknown Discharge Address: No known address
[2019-08-27] MEDS: SIMVASTATIN 10 MG TAB PO SCH (21:19)
[2019-08-27] MEDS: PANTOprazole 40 MG TAB PO SCH (21:19)
--- NOTE | 2019-08-28 07:54 | Psychiatric Progress Note ---
Date of Service August 28, 2019 Impression / Recommendations Impression 63-year-old female from [place] who has a history of schizophrenia vs schizoaffective disorder and was admitted after 2 ER visits in 1 week for psychosis and inability to care for herself. She presented on a 302 commitment following a petition by her grandson stating she told him that she was going to shoot herself with a gun. She was imprisoned for approximately 1 year on charges of making terroristic threats, and was released 07/24, but was not taking medications and was homeless. She had been seen in the emergency room during the previous weekend and released after several days of stable behavior in the ER. [employer] was paying for a hotel room for her, but she left and was sleeping "on the streets" for at least several days, during which time overnight temperatures were below freezing. Reports from community providers are that she has been neglecting self-care, not attending to her personal needs, not taking her medicines, and not eating. She violated the PFA that her family members have against her, going to their place of business on the day of presentation. 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 She is demonstrating paranoia and responding to auditory and visual hallucinations. She is on a 303 as of 08/07, and a 304 as of 08/20. Inpatient treatment is medically necessary as she is severely mentally ill and unable to provide for her own basic needs as a result, and additionally threatened to kill herself as detailed in the 302 petition. Received first dose of Invega Sustenna on 08/12, second on 08/16, and po Invega has been continued due to ongoing psychotic symptoms. She is on a 304 commitment as of 08/21/2019, and we are working with the [facility] to explore options for outpatient treatment/supports - additional meeting held on 08/24/2019. Re-viewed 08/27--bipolar disorder-stable, resistant to housing options, confirmed immigration has no options at this point. (1) Schizophrenia: 08/04/19 -The patient has been admitted to the locked, secured behavioral health unit and has been placed in special observation room. She is also being monitored with close observations and every 15-minute direct observation. When more stable she will be actively encouraged to participate in individual, group, and activity therapies. We will also attempt to involve the family if the patient permits us to and if they agree. -Although she was given a diagnosis of schizophrenia in the emergency room, the record, and the patient's presentation, is more consistent with a diagnosis of schizoaffective disorder, bipolar type. She has a reported history of responding favorably to risperidone, and, in addition, she had been prescribed lithium carbonate prior to admission. The issue may be nonadherence with these medications, and the first plan is to restart them at risperidone 3 mg in the morning and 4 mg at bedtime (oral dissolving tablets to help assure adherence) and lithium carbonate 300 mg twice a day with a plan to check her lithium level next week. 08/04 -Interview was difficult again today due to apparent paranoia and lability of affect while utilizing wig dresser services. Cannot rule out cognitive dysfunction in addition to psychosis. Appears she was not restarted on AM dose of risperdal yesterday. Will attempt to reconfirm prior home dose before restarting due to higher risk for SE at that dose and increased risk for EPS if titrated too quickly. We will continue to expand database as able. 08/05 -Affect remains odd and suspicious however she has not been overtly agitated or aggressive. -We will add 2 mg morning dose of Risperdal tomorrow working towards home dose of 3 mg in the morning and 4mg at bedtime -Ordered fasting glucose and lipids for a.m. for monitoring on atypical antipsychotic 08/06 -Patient remains psychotic, delusional, unable to come up with a reasonable discharge plan (today states she owns a house in [place] that she just bought, but wants the address and does not know where it is). She denies that her family has a PFA against her or that she has any legal problems. She is not a reliable historian, and we will reach out to her [facility] to try to get additional collateral information. -303 hearing scheduled for tomorrow, will request a discharge planning meeting with the [facility] afterwards. -Continue lithium and risperidone, and explore options for outpatient treatment/obtaining medications given her lack of resources. -Fasting labs reviewed for monitoring on an atypical antipsychotic; glucose 109, cholesterol 221, remainder within normal limits. 08/07 -303 hearing held and granted. Recommend 304 IO given her history of treatment noncompliance, lack of insight, frequent hospitalizations, and severity of psychotic symptoms and erratic, unsafe behavior when acutely psychotic. -Request records from psychiatric treatment while incarcerated. Patient refused to sign INO for [facility] (where she was referred for outpatient treatment during her 2018 hospitalization here). -Get collateral information from family, as patient reports they were helping her to establish housing. She signed an INO for her grandson who was also the 302 petitioner. -Discharge planning meeting with [facility] Lizzy Pandey. Explore options for housing assistance and OP care (numerous barriers including language, lack of resources/income, citizenship, lack of insurance, poor insight and adherence). -Continue risperidone and increase to 3mg qam and 4mg hs. Explore options for CANTOR (will depend largely on where/how she will access OP care, as no insurance so will have to explore ways to get CANTOR covered). Check w/ CV re: ability to supply/administer CANTOR. -Continue lithium and check trough level tomorrow. 08/08 - Pt declines feeling a need to adjust medications - Attempted to discuss subtherapeutic lithium level (0.4) - will offer patient 600mg tonight and continue the 300mg dose each morning - Limited ability to communicate with wig dresser service today, as patient does not speak at a volume loud enough for wig dresser to accurately translate despite many attempts to agile coach patient - Awaiting additional communication from [facility] regarding CANTOR options available 08/09 -Cyrus dose increased today to 450 mg twice daily; recheck trough level after 5 days (08/15/2019). -Change risperidone to paliperidone, with plan to transition to Invega Sustenna if it is effective and well-tolerated. Sustenna preferred over Risperdal Consta as it can be administered every 4 weeks instead of every 2. She already received her morning dose of risperidone, so will give 3 mg of paliperidone tonight, and 6 mg once daily starting tomorrow. -Patient has now signed releases for [facility] and [facility], so we will request records to clarify previous psychiatric treatment and response. 08/10 - Continue lithium 450mg BID, lithium level scheduled for 08/15/2019 - Continue paliperidone 6mg qAM - ongoing attempts to coordinate with [facility] regarding CANTOR options. Patient's lack of Social Security Number is possibly a barrier to applying for patient assistance programs for medications. Could consider titration of paliperidone to 9mg daily if tolerated. - Meeting between our team, the BSU and CV has been scheduled for 08/15 to discuss aftercare and discharge planning 08/11 - monitor for ongoing improvement on higher dose of Cyrus and Invega, will be converted to injectable if means to continue outpatient. 08/12 --Reviewed. Will give first of 2 Invega loading injections today, no clear aftercare plan in place so primary team can determine timing of/need for 2nd injection. At minimum she would have more coverage with medication when leaves the hospital. Ideally she would have discharge instructions/remedy developer instructions in Turkish. 08/13 - Currently patient seems more restless, not accepting of need for discharge planning and given her history of incarceration I believe this is the cause rather than worsening bipolar. Will monitor. Explained to patient court order (commitment) at this time and need for county meeting. Encouraged her to consider assistance with relocation to a city with more lao speaking people, like [place] or previous chcf offered. Plan: lithium level in am, states she won't take PO meds after discharge. 08/14 - Continue current medication regimen - patient can be given second loading dose of Invega Sustenna as early as 08/16 - Cyrus level obtained this morning - within therapeutic range at 0.7. Can consider further titration as indicated. - Electrolytes obtained with AM blood work as well. Sodium level is slightly low at 135; all other values were WNL - Pt continues to be preoccupied with discharge, but is able to verbalize desire to continue medications as prescribed on an outpatient basis - Discharge planning meeting is scheduled for tomorrow with the BSU and [facility] 08/15 -Discharge planning meeting: No current outpatient treatment options, unwilling to accept assistance to complete visa or [place] applications, no way to get medications and no outpatient clinicians available. -Remains unwilling to explore options for chcf/housing. -File for 304 hearing to be held next week. 08/16 - Meeting held today with patient's CM and social service manager - patient provided verbal permission to work with CM while in the hospital and to allow her to coordinate with [facility] and the patient's brother - We continue to explore possible options for ongoing Invega Sustenna injections - patient did receive her second initiation injection today - 304 hearing scheduled for 08/20 at 10:00 08/18 - Continue PO Invega given severity of psychosis and fact that she is tolerating it well. 08/19 -Continue current treatment plan; 304 hearing tomorrow; will coordinate with her BCM after regarding discharge planning. Many barriers, including illegal status in this country, lack of insurance or income, lack of family support, and homelessness. Additionally, her psychosis is impairing her from participating fully in discharge planning, as she has a delusion that she owns a home in [place] and can go there, so is unwilling to work with us for alternative housing options. She additionally does not appear to appreciate her lack of resources, for example has no way to get food or emergency chcf if needed, but is unconcerned about this. She currently has a PFA from multiple family members against her, but likewise does not recognize this, and has already violated it multiple times since she was released from skilled nursing. 08/20 -304 held and granted. Continue current meds (li and Invega Sustenna and PO). -Continue discharge planning: [facility] and [facility] exploring options for [facility]OC/outpatient care ([facility], how to get medications covered). Continue to encourage patient to complete necessary applications ([place]isa, [place]) to access services, and to accept help w/ housing (currently limited by her psychosis). -Patient continues to endorse delusions, does not believe that her family has a PFA against her. We will attempt to get a copy of the PFA in Turkish for her. 08/21 - Continue current medication regimen - patient reports feeling as though the medications are helpful. Stating she understands the benefit of medications and will continue both the injections and oral medications on discharge. - Referrals placed to [facility] for outpatient treatment on an IOC. Will continue attempts to work with patient to complete applications for her Visa/[place]. 08/22 - Continue current medication regimen - Continue to engage patient in meetings with her outpatient human services case manager to coordinate discharge plans - pt is agreeable with outpatient follow-up at [facility], but is still not able to provide a reliable address and is not willing to consider alternative shelters, even ones that involve bilingual staff 08/23 - Continue current medication regimen - Meeting held today with [facility] representatives to discuss discharge planning - there is reportedly potential that [facility] may detain and deport the patient based on numerous violations of the PFA, but no clear details of this timeline at this time. - Continue attempts to engage the patient in treatment, but she remains very irritable and tolerance with conversations regarding discharge planning are very limited. 08/27--continue current medications and treatment plan (2) Noncompliance with medication regimen: 08/04/19 - The patient indicates that she has stopped taking her medicine because the names of the directions for the medications are in Maltese and she cannot read them. She also indicates that she no longer has access to her medications and has not taken any for approximately 5 days. The patient also claims to not recall the names of any of her medications and reports that she does not have the conditions for which her known medications are clearly intended. She also seems not to be oriented to year, and memory deficits on testing suggests that there may be some cognitive impairment as well. -The patient's underlying psychiatric condition will be actively treated. It is hoped that with treatment we will be able to better assess whether the patient can independently manage medications, or if she will need active assistance in this regard when she returns to the community. -She has a history of favorably responding to risperidone. We will start the pa marni on risperidone M tabs at her reported outpatient recommended dose, and as tolerated we will talk to the patient about converting to a Depo form of risperidone, given her history of medication nonadherence. 08/04 -Has been compliant with lithium and Risperdal in the hospital -reviewed Li 0.2 on 08/03/1908/07 - Would benefit from CANTOR and will explore options once we know where she will get outpatient treatment. Barriers include finances, lack of insurance, homelessness, lack of supports, poor insight. 08/12-reviewed. 08/14 - Pt was started on Invega Sustenna 234mg on 08/13/2019, can receive second injection as soon as 08/17/2019 - Will need to discuss ability to continue the injections with the BSU and [facility] at tomorrow's discharge planning meeting 08/15 -Patient more irritable, stating she will not take medications or accept further injections. -Discharge planning meeting held with BSU and CVIM; patient has many barriers to accessing treatment, including lack of valid visa, lack of insurance or funding, county's unwillingness to provide treatment, and inability to get medication. She is homeless, has no support from family, and has legal proble ms. She will need a 304 IOC. 08/16 - Patient has now completed the initiation series of injections for Invega Sustenna - continue attempts to ensure patient can receive the injections on an outpatient basis (3) Homeless: 08/04/19 -Until recently, the patient reportedly had been living in a motel room and a "[employer]" motel in [place]. This accommodation was provided through a local benevolent organization known as "[employer]." However, this organization has notified us today that they were only able to provide accommodations during cold weather seasons and that, accordingly, they will not be able to provide accommodations over the balance of the spring, summer, and early derian. -In the past, the patient is live with family members. However, this is clearly not an option at the present time. The context is that the patient reportedly was in half-way for approximately a year because of her making terroristic threats against the family. While it does seem clear that the family wants to help protect her, they are unable to safely provide chcf. Given the patient's history of neglect of self-care, medication nonadherence, and possible cognitive deficits we are going to investigate structured residential programs as part of our discharge planning. 08/09 -Outpatient human services case manager reports that 2 shelters with bilingual staff were identified prior to the patient leaving skilled nursing -[facility] and [facility] in [place]. She remains unwilling to explore housing options, expressing a delusion that she owns a home locally that she can return to. She also believes that her family is living in her home and preventing her from using it. Her outpatient human services case manager reports there is an active PFA against the patient from her family, which limits our ability to involve them in treatment. She also reports that the Department of [place] [employer] and [facility] were both notified of the patient's illegal status in this country, but declined to deport her to [place]. 08/10 - Pt continues to verbalize anticipated discharge plans that cannot be confirmed and communication is limited by patient's refusal and PFAs against various family members. - Pt now stating that she is planning to live with her mother in [place] and that she will be picking her up on discharge - patient also admits that she has had no communication with her mother since her admission. 08/18 -Patient continues to refuse assistance with housing, insisting she owns a house and in fact "many houses," and gave us an address that is not real 08/21 - Confirmed that patient's brother, Earle, is not listed on the PFA - phone call placed to gather collateral information, discuss housing options 08/22 - Pt is now saying she [place] [facility] [address] but is unable to give a description of surrounding landmarks. Multiple internet searches have been conducted with no matching information - Pt is declining offers to explore bilingual shelters or [facility] which reportedly has bilingual staff. 08/27 sw to revisit [facility]. If [facility] can have [facility]care at [facility] and outpatient commitment. Inventory Assets Strengths: Agrees to take medications. Basically cooperative with treatment. Pleasant on approach. Concerned family members. Needs: Resolution of psychotic features. Medication adherence. Stable living environment. Risk Factors Assessment Male: No : No Do You Have Access To A Gun?: No Health Problems: Yes Mental Health Diagnoses: Yes Substance Use Disorders: Yes (Patient makes reference to smoking marijuana, but does not clear if this is something that is done regularly or if it interferes anyway with her functioning.) Previous Attempt: No (The patient insists that she does not have a history of intentional self injury. 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 303 granted on 08/08/2019, and 304 scheduled for 08/21/2019. Chief Complaint "Good morning". Review of Systems Sleep Information Total Hours of Sleep: 5.5 Sleep Comments: awake early in morning Meal Information Percent Meal Consumed - Breakfast: 100 Percent Meal Consumed - Lunch: 100 Percent Meal Consumed - Dinner: 100 Nutrition Comment: ducumented from the pt. meal record Subjective Subjective Patient was seen & assessed and interval progress reviewed with treatment team. No issues overnight. Main concern remains disposition as previously refusing chcf placement. Lizzy Katherin believed that may be a chance of being detained, I contacted CM this am explaining progress, criteria for ongoing involuntary care, need for clear direction in patient's best interest. Physical Exam Psychiatric Orientation: alert Apperance: appropriately groomed Eye Contact: + fair eye contact Motor Behavior: steady gait and station Speech: normal rate/rhythm/volume of speech Affect: + depressed affect (but brightens with interaction) Thought Process: + concrete thought process Suicidal Thoughts: denies suicidal thoughts Homicidal Thoughts: denies homicidal thoughts Vital Signs (Past 24 Hours) Last Vital Signs Temp 36.6 C 08/28/19 06:36 Pulse 69 08/28/19 06:37 Resp 18 08/28/19 06:36 BP 138/87 08/28/19 06:37 Pulse Ox 95 08/03/19 21:25 Results & Data ([facility]) Current Inpatient Medications Current Inpatient Medications: Current Inpatient Medications Acetaminophen (Tylenol) 650 mg PO Q4H PRN PRN Reason: Headache or Minor Fever Stop: 09/02/19 20:46 Last Admin: 08/13/19 12:29 Dose: 650 mg Documented by: Al Hydrox/Mg Hydrox/Simethicone (Maalox) 30 ml PO Q4H PRN PRN Reason: GI Upset Stop: 09/02/19 20:46 Bismuth Subsalicylate (Kaopectate) 15 ml PO PRN PRN PRN Reason: Loose Stool Stop: 09/02/19 20:46 Diphenhydramine HCl (Benadryl Capsule) 50 mg PO BID CLARISA Stop: 09/03/19 10:59 Last Admin: 08/27/19 21:16 Dose: 50 mg Documented by: Hydroxyzine HCl (Vistaril) 50 mg PO HSZ PRN PRN Reason: Insomnia Stop: 09/02/19 20:46 Hydroxyzine HCl (Vistaril) 25 mg PO Q4H PRN PRN Reason: Anxiety Stop: 09/02/19 20:46 Levothyroxine Sodium (Synthroid) 75 mcg PO DAILYBB [facility] Stop: 09/04/19 07:59 Last Admin: 08/27/19 09:39 Dose: 75 mcg Documented by: Cyrus Carbonate (Cyrus Carbonate) 450 mg PO BID [facility] Stop: 09/09/19 08:59 Last Admin: 08/27/19 21:16 Dose: 450 mg Documented by: Loratadine (Claritin) 10 mg PO QAM [facility] Stop: 09/03/19 10:59 Last Admin: 08/27/19 09:39 Dose: 10 mg Documented by: Magnesium Hydroxide (Milk Of Magnesia) 30 ml PO DAILY PRN PRN Reason: Constipation Stop: 09/02/19 20:46 Paliperidone (Invega) 6 mg PO QAM [facility] Stop: 09/10/19 08:59 Last Admin: 08/27/19 09:39 Dose: 6 mg Documented by: Pantoprazole Sodium (Protonix) 40 mg PO [facility] Stop: 09/03/19 21:59 Last Admin: 08/27/19 21:19 Dose: 40 mg Documented by: Simethicone (Mylicon) 80 mg PO TID PRN PRN Reason: Gas or Constipation Stop: 09/03/19 13:59 Simvastatin (Zocor) 10 mg PO HS [facility] Stop: 09/03/19 21:59 Last Admin: 08/27/19 21:19 Dose: 10 mg Documented by: Sodium Chloride (Dewitt Nasal) 1 - 2 sprays NA PRN PRN PRN Reason: Nasal Dryness/Congestion Stop: 09/02/19 20:46 Mental Health & Subst Abuse Tx Psychiatrist Name of Psychiatrist: Jackelin Psychiatrist's Psychiatric Appointment Comment: [address] [place] [id number] Therapist Name of Therapist: Jackelin Hernandez Therapist's Date of Therapist Appointment: 09/14/19 Time of Therapist Appointment: 11:00 a.m. Therapy Appointment Comment: This will be the intake appt, with referral to Dr. Hayes for Sunday 09/17 Therapist Release of Information: Obtained, Reviewed and Signed Drug And Alcohol Counselor Name of Drug And Alcohol Counselor: [facility] [facility] Phone Number for [facility]: [phone] Post Discharge Appointments Contact Information Discharge Phone Number: Unknown Discharge Address: No known address (1) Schizophrenia Schizophrenia type: unspecified Qualified Code(s): F20.9 - Schizophrenia, unspecified
[2019-08-28] MEDS: LEVOTHYROXINE SODIUM 75 MCG TABLET PO SCH (08:17)
[2019-08-28] MEDS: LITHIUM CARBONATE 300 MG TAB PO SCH ×2 (08:18→21:21)
[2019-08-28] MEDS: LORATADINE 10 MG TAB PO SCH (08:18)
[2019-08-28] MEDS: PALIPERIDONE 3 MG TABCR PO SCH (08:18)
[2019-08-28] MEDS: SIMVASTATIN 10 MG TAB PO SCH (21:20)
[2019-08-28] MEDS: PANTOprazole 40 MG TAB PO SCH (21:21)
[2019-08-29] MEDS: LORATADINE 10 MG TAB PO SCH (08:00)
[2019-08-29] MEDS: LITHIUM CARBONATE 300 MG TAB PO SCH ×2 (08:01→21:15)
[2019-08-29] MEDS: PALIPERIDONE 3 MG TABCR PO SCH (08:01)
[2019-08-29] MEDS: LEVOTHYROXINE SODIUM 75 MCG TABLET PO SCH (08:01)
--- NOTE | 2019-08-29 14:43 | Psychiatric Progress Note ---
Date of Service August 29, 2019 Impression / Recommendations Impression 63-year-old female from [place] who has a history of schizophrenia vs schizoaffective disorder and was admitted after 2 ER visits in 1 week for psychosis and inability to care for herself. She presented on a 302 commitment following a petition by her grandson stating she told him that she was going to shoot herself with a gun. She was imprisoned for approximately 1 year on charges of making terroristic threats, and was released 07/24, but was not taking medications and was homeless. She had been seen in the emergency room during the previous weekend and released after several days of stable behavior in the ER. [employer] was paying for a hotel room for her, but she left and was sleeping "on the streets" for at least several days, during which time overnight temperatures were below freezing. Reports from community providers are that she has been neglecting self-care, not attending to her personal needs, not taking her medicines, and not eating. She violated the PFA that her family members have against her, going to their place of business on the day of presentation. 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 She is demonstrating paranoia and responding to auditory and visual hallucinations. She is on a 303 as of 08/07, and a 304 as of 08/20. Inpatient treatment is medically necessary as she is severely mentally ill and unable to provide for her own basic needs as a result, and additionally threatened to kill herself as detailed in the 302 petition. Received first dose of Invega Sustenna on 08/12, second on 08/16, and po Invega has been continued due to ongoing psychotic symptoms. She is on a 304 commitment as of 08/21/2019, and we [facility] to explore options for outpatient treatment/supports - additional meeting held on 08/24/2019. Re-viewed 08/27--bipolar disorder-stable, resistant to housing options, confirmed immigration has no options at this point. (1) Schizophrenia: 08/04/19 -The patient has been admitted to the locked, secured behavioral health unit and has been placed in special observation room. She is also being monitored with close observations and every 15-minute direct observation. When more stable she will be actively encouraged to participate in individual, group, and activity therapies. We will also attempt to involve the family if the patient permits us to and if they agree. -Although she was given a diagnosis of schizophrenia in the emergency room, the record, and the patient's presentation, is more consistent with a diagnosis of schizoaffective disorder, bipolar type. She has a reported history of responding favorably to risperidone, and, in addition, she had been prescribed lithium carbonate prior to admission. The issue may be nonadherence with these medications, and the first plan is to restart them at risperidone 3 mg in the morning and 4 mg at bedtime (oral dissolving tablets to help assure adherence) and lithium carbonate 300 mg twice a day with a plan to check her lithium level next week. 08/04 -Interview was difficult again today due to apparent paranoia and lability of affect while utilizing hand edge bander services. Cannot rule out cognitive dysfunction in addition to psychosis. Appears she was not restarted on AM dose of risperdal yesterday. Will attempt to reconfirm prior home dose before restarting due to higher risk for SE at that dose and increased risk for EPS if titrated too quickly. We will continue to expand database as able. 08/05 -Affect remains odd and suspicious however she has not been overtly agitated or aggressive. -We will add 2 mg morning dose of Risperdal tomorrow working towards home dose of 3 mg in the morning and 4mg at bedtime -Ordered fasting glucose and lipids for a.m. for monitoring on atypical antipsychotic 08/06 -Patient remains psychotic, delusional, unable to come up with a reasonable discharge plan (today states she owns a house in [place] that she just bought, but wants the address and does not know where it is). She denies that her family has a PFA against her or that she has any legal problems. She is not a reliable historian, and we will reach out to her [facility] to try to get additional collateral information. -303 hearing scheduled for tomorrow, will request a discharge planning meeting [facility] afterwards. -Continue lithium and risperidone, and explore options for outpatient treatment/obtaining medications given her lack of resources. -Fasting labs reviewed for monitoring on an atypical antipsychotic; glucose 109, cholesterol 221, remainder within normal limits. 08/07 -303 hearing held and granted. Recommend 304 IO given her history of treatment noncompliance, lack of insight, frequent hospitalizations, and severity of psychotic symptoms and erratic, unsafe behavior when acutely psychotic. -Request records from psychiatric treatment while incarcerated. Patient refused to sign INO for [facility] (where she was referred for outpatient treatment during her 2018 hospitalization here). -Get collateral information from family, as patient reports they were helping her to establish housing. She signed an INO for her grandson who was also the 302 petitioner. -Discharge planning meeting with [facility] Lizzy Pandey. Explore options for housing assistance and OP care (numerous barriers including language, lack of resources/income, citizenship, lack of insurance, poor insight and adherence). -Continue risperidone and increase to 3mg qam and 4mg hs. Explore options for CANTOR (will depend largely on where/how she will access OP care, as no insurance so will have to explore ways to get CANTOR covered). Check w/ CV re: ability to supply/administer CANTOR. -Continue lithium and check trough level tomorrow. 08/08 - Pt declines feeling a need to adjust medications - Attempted to discuss subtherapeutic lithium level (0.4) - will offer patient 600mg tonight and continue the 300mg dose each morning - Limited ability to communicate with hand edge bander service today, as patient does not speak at a volume loud enough for hand edge bander to accurately translate despite many attempts to personal coach patient - Awaiting additional communication from [facility] regarding CANTOR options available 08/09 -Glassport dose increased today to 450 mg twice daily; recheck trough level after 5 days (08/15/2019). -Change risperidone to paliperidone, with plan to transition to Invega Sustenna if it is effective and well-tolerated. Sustenna preferred over Risperdal Consta as it can be administered every 4 weeks instead of every 2. She already received her morning dose of risperidone, so will give 3 mg of paliperidone tonight, and 6 mg once daily starting tomorrow. -Patient has now signed releases for [facility] and [facility], so we will request records to clarify previous psychiatric treatment and response. 08/10 - Continue lithium 450mg BID, lithium level scheduled for 08/15/2019 - Continue paliperidone 6mg qAM - ongoing attempts to coordinate with [facility] regarding CANTOR options. Patient's lack of Social Security Number is possibly a barrier to applying for patient assistance programs for medications. Could consider titration of paliperidone to 9mg daily if tolerated. - Meeting between our team, the BSU and CV has been scheduled for 08/15 to discuss aftercare and discharge planning 08/11 - monitor for ongoing improvement on higher dose of Glassport and Invega, will be converted to injectable if means to continue outpatient. 08/12 --Reviewed. Will give first of 2 Invega loading injections today, no clear aftercare plan in place so primary team can determine timing of/need for 2nd injection. At minimum she would have more coverage with medication when leaves the hospital. Ideally she would have discharge instructions/sales assistant entertainment and media instructions in [place]. 08/13 - Currently patient seems more restless, not accepting of need for discharge planning and given her history of incarceration I believe this is the cause rather than worsening bipolar. Will monitor. Explained to patient court order (commitment) at this time and need for county meeting. Encouraged her to consider assistance with relocation to a city with more turkish speaking people, like [place] or previous detention offered. Plan: lithium level in am, states she won't take PO meds after discharge. 08/14 - Continue current medication regimen - patient can be given second loading dose of Invega Sustenna as early as 08/16 - Glassport level obtained this morning - within therapeutic range at 0.7. Can consider further titration as indicated. - Electrolytes obtained with AM blood work as well. Sodium level is slightly low at 135; all other values were WNL - Pt continues to be preoccupied with discharge, but is able to verbalize desire to continue medications as prescribed on an outpatient basis - Discharge planning meeting is scheduled for tomorrow with the BSU and [facility] 08/15 -Discharge planning meeting: No current outpatient treatment options, unwilling to accept assistance to complete visa or [place] applications, no way to get medications and no outpatient clinicians available. -Remains unwilling to explore options for detention/housing. -File for 304 hearing to be held next week. 08/16 - Meeting held today with patient's CM and social work therapist - patient provided verbal permission to work with CM while in the hospital and to allow her to coordinate with [facility] and the patient's brother - We continue to explore possible options for ongoing Invega Sustenna injections - patient did receive her second initiation injection today - 304 hearing scheduled for 08/20 at 10:00 08/18 - Continue PO Invega given severity of psychosis and fact that she is tolerating it well. 08/19 -Continue current treatment plan; 304 hearing tomorrow; will coordinate with her BCM after regarding discharge planning. Many barriers, including illegal status in this country, lack of insurance or income, lack of family support, and homelessness. Additionally, her psychosis is impairing her from participating fully in discharge planning, as she has a delusion that she owns a home in [place] and can go there, so is unwilling to work with us for alternative housing options. She additionally does not appear to appreciate her lack of resources, for example has no way to get food or emergency detention if needed, but is unconcerned about this. She currently has a PFA from multiple family members against her, but likewise does not recognize this, and has already violated it multiple times since she was released from penitentiary. 08/20 -304 held and granted. Continue current meds (li and Invega Sustenna and PO). -Continue discharge planning: [facility] for [facility]/outpatient care ([facility], how to get medications covered). Continue to encourage patient to complete necessary applications ([place]isa, [place]) to access services, and to accept help w/ housing (currently limited by her psychosis). -Patient continues to endorse delusions, does not believe that her family has a PFA against her. We will attempt to get a copy of the PFA in [place] for her. 08/21 - Continue current medication regimen - patient reports feeling as though the medications are helpful. Stating she understands the benefit of medications and will continue both the injections and oral medications on discharge. - Referrals placed to [facility] for outpatient treatment on an IOC. Will continue attempts to work with patient to complete applications for her Visa/[place]. 08/22 - Continue current medication regimen - Continue to engage patient in meetings with her outpatient vocational case manager to coordinate discharge plans - pt is agreeable with outpatient follow-up at [facility], but is still not able to provide a reliable address and is not willing to consider alternative shelters, even ones that involve bilingual staff 08/23 - Continue current medication regimen - [facility] held [facility] to discuss discharge planning - there is reportedly potential that [facility] may detain and deport the patient based on numerous violations of the PFA, but no clear details of this timeline at this time. - Continue attempts to engage the patient in treatment, but she remains very irritable and tolerance with conversations regarding discharge planning are very limited. 08/27--continue current medications and treatment plan 08/28 -Continue current medication regimen. -Patient confirms that she will follow-up with outpatient psychiatrist for further treatment, saying "all my family members including my , mom, brother and sister will go to the appointment with me. " (2) Noncompliance with medication regimen: 08/04/19 - The patient indicates that she has stopped taking her medicine because the names of the directions for the medications are in Telugu and she cannot read them. She also indicates that she no longer has access to her medications and has not taken any for approximately 5 days. The patient also claims to not recall the names of any of her medications and reports that she does not have the conditions for which her known medications are clearly intended. She also seems not to be oriented to year, and memory deficits on testing suggests that there may be some cognitive impairment as well. -The patient's underlying psychiatric condition will be actively treated. It is hoped that with treatment we will be able to better assess whether the patient can independently manage medications, or if she will need active assistance in this regard when she returns to the community. -She has a history of favorably responding to risperidone. We will start the patient on risperidone M tabs at her reported outpatient recommended dose, and as tolerated we will talk to the patient about converting to a Depo form of risperidone, given her history of medication nonadherence. 08/04 -Has been compliant with lithium and Risperdal in the hospital -reviewed Li 0.2 on 08/03/1908/07 - Would benefit from CANTOR and will explore options once we know where she will get outpatient treatment. Barriers include finances, lack of insurance, homelessness, lack of supports, poor insight. 08/12-reviewed. 08/14 - Pt was started on Invega Sustenna 234mg on 08/13/2019, can receive second injection as soon as 08/17/2019 - Will need to discuss ability to continue the injections with the BSU and CVIM at tomorrow's discharge planning meeting 08/15 -Patient more irritable, stating she will not take medications or accept further injections. -Discharge planning meeting held with BSU and CVIM; patient has many barriers to accessing treatment, including lack of valid visa, lack of insurance or funding, county's unwillingness to provide treatment, and inability to get medication. She is homeless, has no support from family, and has legal problems. She will need a 304 IOC. 08/16 - Patient has now completed the initiation series of injections for Invega Sustenna - continue attempts to ensure patient can receive the injections on an outpatient basis (3) Homeless: 08/04/19 -Until recently, the patient reportedly had been living in a motel room and a "[employer]" motel in [place]. This accommodation was provided through a local benevolent organization known as "[employer]." However, this organization has notified us today that they were only able to provide accommodations during cold weather seasons and that, accordingly, they will not be able to provide accommodations over the balance of the spring, summer, and early derian. -In the past, the patient is live with family members. However, this is clearly not an option at the present time. The context is that the patient reportedly was in alf for approximately a year because of her making terroristic threats against the family. While it does seem clear that the family wants to help protect her, they are unable to safely provide detention. Given the patient's hi story of neglect of self-care, medication nonadherence, and possible cognitive deficits we are going to investigate structured residential programs as part of our discharge planning. 08/09 -Outpatient vocational case manager reports that 2 shelters with bilingual staff were identified prior to the patient leaving penitentiary -[facility] and [facility] in [place]. She remains unwilling to explore housing options, expressing a delusion that she owns a home locally that she can return to. She also believes that her family is living in her home and preventing her from using it. Her outpatient vocational case manager reports there is an active PFA against the patient from her family, which limits our ability to involve them in treatment. She also reports that the [employer] of [employer] and [facility] were both notified of the patient's illegal status in this country, but declined to deport her to [place]. 08/10 - Pt continues to verbalize anticipated discharge plans that cannot be confirmed and communication is limited by patient's refusal and PFAs against various family members. - Pt now stating that she is planning to live with her mother in [place] and that she will be picking her up on discharge - patient also admits that she has had no communication with her mother since her admission. 08/18 -Patient continues to refuse assistance with housing, insisting she owns a house and in fact "many houses," and gave us an address that is not real 08/21 - Confirmed that patient's brother, Earle, is not listed on the PFA - phone call placed to gather collateral information, discuss housing options 08/22 - Pt is now saying she remembers her [address] [address] [address] but is unable to give a description of surrounding landmarks. Multiple internet searches have been conducted with no matching information - Pt is declining offers to explore bilingual shelters or [facility] which reportedly has bilingual staff. 08/27 sw to revisit [facility]. [facility]care at [facility] and outpatient commitment. 08/28 - Pt is not aware that his family members filed PFA against her, stating "that is not true and everything is cleared at this point." Inventory Assets Strengths: Agrees to take medications. Basically cooperative with treatment. Pleasant on approach. Concerned family members. Needs: Resolution of psychotic features. Medication adherence. Stable living environment. Risk Factors Assessment Male: No : No Do You Have Access To A Gun?: No Health Problems: Yes Mental Health Diagnoses: Yes Substance Use Disorders: Yes (Patient makes reference to smoking marijuana, but does not clear if this is something that is done regularly or if it interferes anyway with her functioning.) Previous Attempt: No (The patient insists that she does not have a history of intentional self injury. 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 303 granted on 08/08/2019, and 304 scheduled for 08/21/2019. Chief Complaint " You need to worry about my aftercare. My whole family will take responsibility for my aftercare after discharge". Review of Systems Notes Constitutional: denied cardiovascular: denied Respiratory: denied GI: denied Neurologic: denied Psychiatric: denies symptoms other than stated above Remainder of 10 body systems also reviewed and denied other than noted above. Sleep Information Total Hours of Sleep: 6.25 Sleep Comments: pt on q-15 minute checks Meal Information Percent Meal Consumed - Breakfast: 100 Percent Meal Consumed - Lunch: 100 Percent Meal Consumed - Dinner: 100 Nutrition Comment: ducumented from the pt. meal record Subjective Subjective Patient was seen & assessed and interval progress reviewed with treatment team. Staff reports that she was pleasant, smiling at other people occasionally, but spent time in her room mostly. Also her discharge plan has been progressing and her expected discharge will be tomorrow. Patient was seen today to assess progress since admission. This provider met with the patient and communicated via [employer] interpretive services on the iPad - Ja #[id number]. Patient reports that her mood is pretty good and she has been tolerating medications well wit hout side effects. She also denies any auditory or visual hallucinations at this point. She was engaged in a conversation pretty calm at first but she started to be agitated when we discussed about her aftercare. She notes that she has never heard of any follow-up appointment with outpatient psychiatrist or therapist and does not know even when she can be discharged. She states she will follow-up her appointment with her mother, , brother and sister when the appointment is set up. She also says, "you do not need to worry about my aftercare and all my family members will take responsibility for my care when I am discharged. "When she was reminded of PFA against her filed from her family members, she was really irritated, saying "it was 2 years ago and everything is cleared at this point and I can see any of my family members when I am discharged ". She discontinued our conversation saying, "I am done ". Physical Exam Psychiatric Orientation: alert and oriented x 3 Apperance: appropriately dressed (food stains on her cloth) and + disheveled Eye Contact: + fair eye contact Motor Behavior: steady gait and station and no abnormal motor movements Speech: normal rate/rhythm/volume of speech Affect: + depressed affect, + tearful affect (asking when she can go home), + blunted affect and + angry affect (discussing about her family's PFA against her) Mood: + depressed mood and + irritable mood Thought Process: linear/logical thought process Thought Content: + obsessions (about her discharge date) and + cognitive distortions (not processing PFA against her) Suicidal Thoughts: denies suicidal thoughts Homicidal Thoughts: denies homicidal thoughts Hallucinations: no auditory hallucinations and no visual hallucinations Cognition: attention grossly intact Estimated Intelligence: consistent with education level Insight: + impaired insight Judgement: + impaired judgement Vital Signs (Past 24 Hours) Last Vital Signs Temp 36.7 C 08/29/19 06:46 Pulse 81 08/29/19 06:46 Resp 18 08/29/19 06:46 BP 145/81 H 08/29/19 06:46 Pulse Ox 95 08/03/19 21:25 Results & Data ([facility]) Current Inpatient Medications Current Inpatient Medications: Current Inpatient Medications Acetaminophen (Tylenol) 650 mg PO Q4H PRN PRN Reason: Headache or Minor Fever Stop: 09/02/19 20:46 Last Admin: 08/13/19 12:29 Dose: 650 mg Documented by: Al Hydrox/Mg Hydrox/Simethicone (Maalox) 30 ml PO Q4H PRN PRN Reason: GI Upset Stop: 09/02/19 20:46 Bismuth Subsalicylate (Kaopectate) 15 ml PO PRN PRN PRN Reason: Loose Stool Stop: 09/02/19 20:46 Diphenhydramine HCl (Benadryl Capsule) 50 mg PO BID [facility]ISA Stop: 09/03/19 10:59 Last Admin: 08/29/19 08:03 Dose: 50 mg Documented by: Hydroxyzine HCl (Vistaril) 50 mg PO HSZ PRN PRN Reason: Insomnia Stop: 09/02/19 20:46 Hydroxyzine HCl (Vistaril) 25 mg PO Q4H PRN PRN Reason: Anxiety Stop: 09/02/19 20:46 Levothyroxine Sodium (Synthroid) 75 mcg PO DAILYBB [facility] Stop: 09/04/19 07:59 Last Admin: 08/29/19 08:01 Dose: 75 mcg Documented by: [place] Carbonate ([place] Carbonate) 450 mg PO BID [facility] Stop: 09/09/19 08:59 Last Admin: 08/29/19 08:01 Dose: 450 mg Documented by: Loratadine (Claritin) 10 mg PO QAM [facility] Stop: 09/03/19 10:59 Last Admin: 08/29/19 08:00 Dose: 10 mg Documented by: Magnesium Hydroxide (Milk Of Magnesia) 30 ml PO DAILY PRN PRN Reason: Constipation Stop: 09/02/19 20:46 Paliperidone (Invega) 6 mg PO QAM [facility] Stop: 09/10/19 08:59 Last Admin: 08/29/19 08:01 Dose: 6 mg Documented by: Pantoprazole Sodium (Protonix) 40 mg PO [facility] Stop: 09/03/19 21:59 Last Admin: 08/28/19 21:21 Dose: 40 mg Documented by: Simethicone (Mylicon) 80 mg PO TID PRN PRN Reason: Gas or Constipation Stop: 09/03/19 13:59 Simvastatin (Zocor) 10 mg PO HS [facility] Stop: 09/03/19 21:59 Last Admin: 08/28/19 21:20 Dose: 10 mg Documented by: Sodium Chloride ([place] Nasal) 1 - 2 sprays NA PRN PRN PRN Reason: Nasal Dryness/Congestion Stop: 09/02/19 20:46 Mental Health & Subst Abuse Tx Psychiatrist Name of Psychiatrist: Jackelin Psychiatrist's Psychiatric Appointment Comment: [address] [facility] [place] [id number] Therapist Name of Therapist: Jackelin Hernandez Therapist's Date of Therapist Appointment: 09/14/19 Time of Therapist Appointment: 11:00 a.m. Therapy Appointment Comment: This will be the intake appt, with referral to Dr. Hayes for Sunday 09/17 Therapist Release of Information: Obtained, Reviewed and Signed [employer] Points Inspector Name of [employer] Points Inspector: [employer] Phone Number for Ball Points Inspector: [phone] Post Discharge Appointments Contact Information Discharge Phone Number: Unknown Discharge Address: No known address (1) Schizophrenia Schizophrenia type: unspecified Qualified Code(s): F20.9 - Schizophrenia, unspecified
[2019-08-29] MEDS: PANTOprazole 40 MG TAB PO SCH (21:15)
[2019-08-29] MEDS: SIMVASTATIN 10 MG TAB PO SCH (21:15)
[2019-08-30] MEDS: LEVOTHYROXINE SODIUM 75 MCG TABLET PO SCH (07:32)
[2019-08-30] MEDS: LORATADINE 10 MG TAB PO SCH (08:43)
[2019-08-30] MEDS: PALIPERIDONE 3 MG TABCR PO SCH (08:43)
[2019-08-30] MEDS: LITHIUM CARBONATE 300 MG TAB PO SCH (08:44)
--- NOTE | 2019-08-30 08:55 | Discharge Summary ---
Date of Service August 30, 2019 History of Present Illness The patient is a 63-year-old woman with a long history of psychotic illness as well as a history of multiple psychiatric hospitalizations, including at least 1 previous admission to the behavioral health unit at [facility]. She was admitted during the evening of 08/03/2019 after being evaluated in the emergency room. The patient also says that she has been living on the streets for at least the past 2 or 3 nights. This is particularly of concern because for approximately the same period of time [place] has been under a freeze warning at night. When asked if she had been cold, she smiled and said "oh no." The patient's report is that she was brought to the emergency room by the police, at her request, because she is confused about her medications and does not have access to them. However, the reality is that she was brought to the emergency room by the police on a 302 warrant that was petitioned by her grandson. According to the petition, the grandson reports that the patient had very recently told him that she is planning to acquire a gun and shoot herself. A woman who has been identified is the patient's disease case manager, Lizzy at the base services unit, reports that the patient had been staying at the [facility] motel, sponsored by the local [employer] organization, "[employer] However, the patient evidently left her motel room several days ago. According to Lizzy, prior to that, the patient had not been eating, had not been taking care of herself, and had not been taking her medications. The patient, herself, acknowledges that she has not taken any of her medications (psychiatric or otherwise) for at least 5 days, both because she does not have access to them and, also, because she is confused about them. The patient tells us that she [facility], and had been sent there approximately a year ago because of "a bunch of lies the people told." She declines to identify, or is unable to remember the nature of the "lies," but her assertion is that the "lies" or "investigated," and her innocence was proven so she was released. According to an online judicial case review, the patient was incarcerated for making terroristic threats, apparently against her her family. It is noted that the family has an active PFA order against her. Additional information is currently being sought from the [place] [facility] health records, and from [facility] where she reportedly had previously been a patient. According the patient, she has no psychiatric illness and does not recall the name of any of her medications. The [id number] evaluation of the patient was conducted with the services of an online service manager. At times, the patient seemed highly suspicious of the service manager and, without merit, periodically accused him of "shouting" at her (he had not) and being "prideful" or "arrogant." (Of course, the turn down worker was simply repeating the questions that I was asking.) Physical Exam Psychiatric Orientation: alert and cooperative Apperance: appropriately dressed, appropriately groomed and appeared stated age Eye Contact: good eye contact Motor Behavior: steady gait and station and no abnormal motor movements Speech: normal rate/rhythm/volume of speech speaks Bermudian Affect: euthymic affect and mood congruent with affect "fine" Thought Process: goal directed thought process Thought Content: + delusions (that she owns a house in [place]) Suicidal Thoughts: denies suicidal thoughts Homicidal Thoughts: denies homicidal thoughts Hallucinations: no auditory hallucinations and no visual hallucinations Cognition: recent memory grossly intact, attention grossly intact and language grossly intact Insight: + poor insight Judgement: + poor judgement Vital Signs (Past 24 Hours) Last Vital Signs Temp 36.6 C 08/30/19 06:41 Pulse 89 08/30/19 06:42 Resp 18 08/30/19 06:41 BP 144/87 H 08/30/19 06:42 Pulse Ox 95 08/03/19 21:25 Principal Diagnosis Schizoaffective disorder, bipolar type Treatment noncompliance Psychiatric Data Patient was hospitalized for 27 days. He was initially diagnosed with schizophrenia based on initial reports, and later records from [facility] were reviewed and indicated a diagnosis of bipolar disorder. After review of the available clinical information and current presentation/symptoms, her diagnosis was changed to schizoaffective disorder bipolar type. She had most recently been on risperidone and lithium, which were prescribed upon discharge from the [place] [facility], and were resumed on admission. Her lithium dose was titrated based on clinical response and trough levels to 450 mg twice daily. After about a week on risperidone, it was discontinued and paliperidone was started, with a plan to transition to the long-acting injectable formulation Invega Sustenna (preferable to risperidone constant as it could be administered every 4 weeks instead of every 2 weeks). She tolerated the paliperidone well and psychosis improved, she became more organized, hallucinations and paranoia resolved, and delusions decreased, so she received the Invega Sustenna loading injections on 08/13/2019 and 08/17/2019. The oral Invega was continued as psychosis was not completely resolved, and she continued to voice delusions that she owned a house in [place], at times saying she owned many houses or multimillion dollar houses. It was very difficult to get background information, as multiple calls to her family were not returned. Her blended disease case manager was involved throughout her hospitalization and was able to provide some historical information, obtained from the patient's family in the [place] [facility]: patient was incarcerated at the [facility] from February 2018 - July 25, 2019 and was released due to being identified as "clinically stabilized" in the [place] [facility] system and due to COVID. The PFA was originally obtained due to threats and acts of violence toward her family, inability to control herself, and her verbalization that she would use anything she could to try and harm the family. She had been living with her family prior to that, but was attempting to harm them due to her paranoia and delusions. Lizzy did confirm that as of 08/09/2019, there was an active PFA for gonna "entire family" until March 2021. While in [facility], pt was "not stabilized", rolling on the floor naked, and not willing to take medication consistently. She was deemed incompetent and transferred to [facility] from 10/2018 - 03/2019, and then returned to the [facility], where she was more stable, but continued to have delusions and auditory hallucinations. Her release [facility] was sudden, but the counselors and outpatient case manager at the [place] [facility] were able to identify 2 options for bilingual shelters ([facility] and in [place]), but the patient declined both options. Lizzy was assigned to work with the patient on 07/26. After repeated attempts to contact her, Lizzy received a report from police/CIT that the patient had been at [facility] and [facility], and was disoriented. A 302 petition was initiated and the patient was brought to the ED. After 70+ hours of being in the ED and no available inpatient placement, she was discharged. On 08/02, Lizzy received another CIT report indicating that the patient went to the [employer] again and stated she was going to kill herself. Her grandson was present and petitioned a 302. The [employer] is owned by the patient's son, and although she states he is her business support associate, this is not true. The [place] [facility] notified ICE and [place] security that she was in the country illegally, but they declined to intervene. Summary of records from [facility]: Admission Date - 11/17/2018 Discharge Date - 04/14/2019 Admitted from, and [facility] to, [facility]. Psychiatric Discharge Medications: (this does not reflect changes made while at the [facility] after discharge from [facility]) 1. Cogentin - 1mg BID for antipsychotic-induced tremor 2. Benadryl - 25mg qAM and 50mg qHS 3. Loleta - 300mg qAM and 600mg qHS 4. Risperdal - 4mg BID 5. Trazodone - 50mg qHS Forensic Summary: Pt was incarcerated at [facility] for terroristic threats and harassment. Early in patient's admission, there was observation of "restless and odd movements" which raised concern for Farmington's Disease which was presumed to be more likely related to a mood disorder as opposed to this consideration. Pt was started on risperidone and then lithium in order to allow for better control of christine. Pt was titrated to doses of 300mg and 600mg of lithium with level being 0.68 initially and 1.09 just prior ro discharge back to the group home. There was a brief trial of Thorazine which patient did not tolerate. Trazodone was also initiated for poor sleep. Regina did participate in a competency evaluation. Pt was found to be competent to stand trial when her "bipolar disorder was resolved to an adequate degree." Diagnosis: Bipolar I disorder, currently in early remission (with the use of medication) Multiple meetings were held with [facility] ID regarding discharge pl anning, which was complicated by multiple barriers, including lack of insurance (with resulting inability to get treatment through community providers), illegal immigration status, homelessness, lack of family involvement or other community supports, lack of employment opportunities or income/finances to support herself, inability to speak or understand Micronesian, poor insight, and unwillingness to accept housing assistance. [facility] was explored as an option for outpatient treatment, but did not feel they could accept her. [facility] ultimately agreed to provide funding for her psychotropic medications and outpatient mental health services, and she was referred to [facility] for psychiatric care. Her M contacted [facility] to explore the option of deportation to [place], as at one point the patient stated she would like to return to [place], but they ultimately stated they would not intervene at this time. The patient could not identify any other friends or supports who could be contacted to assist with discharge planning. Throughout her hospital stay, she indicated she did not believe that her family members had a PFA against her, and we contacted the court and requested a copy of the PFA in [place]ian to give to her, which they declined to provide. The patient was calm and cooperative throughout her stay, and at no time did she make threats toward anyone else or behave in a violent or aggressive manner. She did have some irritability during the first part of her stay, but this improved. She consistently denied thoughts of harming herself, and did not engage in self-injurious behavior. She denied ever making suicidal statements prior to discharge. She was eating and sleeping well, performing ADLs independently, and consistently demonstrated good hygiene and grooming. She did not attend any groups, but took medications as prescribed, and stated she wanted to continue her medications upon discharge from the [place] [facility], but the instructions were in Micronesian, not in Bermudian, and she could not understand them. She did appear cognitively limited, often giving vague, superficial responses, and was unable/unwilling to elaborate when asked. She consistently declined offers to assist her with housing/alf, and consistently expressed a wish to be discharged, stating she only came to the hospital because she needed her medications. She was initially admitted on a 302, and 303 and then 304 hearings were held and granted. She was transitioned to a 304 involuntary outpatient commitment at discharge. Day of Discharge Assessment Staff report the patient has been pleasant and cooperative with interactions, compliant with medications, and continues to complete her ADLs independently. She is eating 100% of meals, and has been in good behavioral control. Staff confirms that [facility] would be able to provide medical and dental services to the patient, including prescription medications for her medical issues. Social work also spoke with her blended disease case manager to confirm transition to a 304 involuntary outpatient commitment today, with details of treatment recommendations being translated into B[place]udian for the patient, including her [facility] treatment plan (outpatient psychiatric care, blended disease case manager, and medication information), contact information for [facility] in [place] and [facility] in [place] (shelters she has previously been referred to who have Bermudian-speaking workers), and medical follow-up information for CV. Her disease case manager has confirmed that she has attempted to contact the patient's family to inform them of her discharge, but they did not return phone calls, so she left them a message with that information. [facility] requested the patient's psychotropic medication prescriptions be sent to [facility], which has been completed. On my assessment, the patient was seen with Macie Rolle (social work) and Christina (nurse), utilizing loss control consultant #[id number]. We reviewed treatment recommendations, including her medication list, outpatient appointments, and other resources as above. She was given the documents in Bermudian. She asked appropriate questions about aftercare. She states she feels "good, fine," and is excited to be leaving the hospital. She denies any side effects to medications, and says they have been helpful, but is unable to give more detailed information about what medications have helped her with. She denies paranoia, hallucinations, thoughts of harming herself, and thoughts of harming anyone else. She continues to insist that she has a home in [place], and that is where she plans to stay. She states that she has big extended family, and that her family members will help her, naming a son-in-law, Rajan, whose phone number she has written on a piece of paper in her pocket. She believes her family will be meeting her after discharge, and when reminded that it is our understanding that they have a PFA against her, she states she is able to have contact with Rajan. She does not have a phone, but states she plans to get one. She continues to decline offers to assist her with the local alf. Transition of Care Transition Of Care Record: was reviewed with the patient Advance Directives Advance Directives Information Provided: No Advance Directives: No Mental Health Advance Directive: No Advance Directives on File: No Living Will: No Power of Neuropsychology Medical Consultant: No Advance Directives Reason:: Declines as Mental Health Visit. Risk Factors Assessment Risk factors were mitigated by admission to the inpatient unit, use of medications to target mood and psychotic symptoms, psychoeducation about her diagnoses and the recommended treatment, coordination with the [facility] ID department, exploration of services available to her in the community, engagement with the [facility] in order to arrange for outpatient treatment and access to prescribe medication, referral to [facility] for medical treatment and medications, offering assistance with alf/housing, attempts to contact multiple family members in the area, review of available past treatment records, coordination with various other [facility] agencies regarding citizenship status and barriers to accessing treatment/services, use of involuntary commitment with transition to outpatient involuntary commitment given history of poor adherence to treatment, and encouragement to participate in group and milieu therapy in the hospital. The patient has demonstrated improvement in mood and psychotic symptoms, has consistently denied thoughts of harming herself or others, has not engaged in self-injurious, aggressive, or threatening behavior here, is eating and sleeping well, and performing ADLs independently. She has been started on a long-acting injectable antipsychotic (due to history of poor adherence) and is taking medications as prescribed. She agreed to outpatient referrals, and will see a psychiatrist at [facility]. Discharge instructions have been translated into Bermudian, and reviewed with her with a computer programmer chief. She is requesting discharge, and as she is no longer at acute risk of harm to herself or others, can be managed as an outpatient at this time. She remains at increased risk compared to the general population for harm to both herself and others, due to her limited insight, language barrier as she does not speak or understand Micronesian, history of poor treatment adherence, unwillingness to accept assistance for alf/housing, and lack of supports in the community. Multiple family members that live locally have a PFA against her, which she does not acknowledge, and which she violated several times prior to admission. However, she has made no threats to harm herself or others while here, has not endorsed thoughts of harming herself or others, and has been calm and cooperative. We do not have information indicating that she has ever harmed another person, but that she did make threats to her family while acutely psychotic over 1 year ago. I believe that she has received the maximum benefit from inpatient psychiatric treatment, and that additional treatment at this time would unlikely to result in further improvement or decreased risk. As far as we know she is homeless, although she continues to insist that she has a house that she can go to. Per reports she has been homeless and lived on the streets in the past, and current weather/temperatures are mild/warm and not life-threatening. 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 Total Time Total Time Spent: Greater Than 30 Minutes Total Time Includes: Examination of the patient, Discharge Planning, Medication Reconciliation and As well as ([address] [place] [address]) Discharge Data Lab Results 08/03/19 08/03/19 08/03/19 17:58 17:58 17:58 WBC 8.43 RBC 4.58 Hgb 13.3 Hct 42.0 MCV 91.7 MCH 29.0 MCHC 31.7 L RDW Std Deviation 43.6 RDW Coeff of Ronald 13.0 Plt Count 393 MPV 9.8 Immature Gran % (Auto) 0.2 Neut % (Auto) 67.0 Lymph % (Auto) 24.4 Gonzales % (Auto) 7.6 Eos % (Auto) 0.4 Baso % (Auto) 0.4 Immature Gran # (Auto) 0.02 Neut # (Auto) 5.65 Lymph # (Auto) 2.06 Gonzales # (Auto) 0.64 H Eos # (Auto) 0.03 Baso # (Auto) 0.03 Sodium 137 Potassium 3.4 L Chloride 103 Carbon Dioxide 26 Anion Gap 8.0 BUN 11 Creatinine 0.67 Est Cr Clr Drug Dosing 94.6 Est GFR ( Amer) 110.0 Est GFR (Non-Af Amer) 94.9 BUN/Creatinine Ratio 15.9 Glucose 105 H Fasting Glucose Calcium 9.0 Total Bilirubin 0.3 AST 21 ALT 29 Alkaline Phosphatase 97 Total Protein 8.4 H Albumin 3.9 Globulin 4.5 H Albumin/Globulin Ratio 0.9 Triglycerides Cholesterol LDL Cholesterol, Calc VLDL Cholesterol, Calc HDL Cholesterol Cholesterol/HDL Ratio TSH 1.410 Urine Color Urine Appearance Urine pH Ur Specific [place] Urine Protein Urine Glucose (UA) Urine Ketones Urine Blood Urine Nitrite Urine Bilirubin Urine Urobilinogen Ur Leukocyte Esterase Urine WBC (Auto) Urine RBC (Auto) U Hyaline Cast (Auto) U Epithel Cells (Auto) Urine Bacteria (Auto) Nasal Screen MRSA (PCR) Salicylates 1.8 L Urine Opiates Screen Ur Methadone, Qual Acetaminophen < 2 L Urine Barbiturates Ur Phencyclidine (PCP) U Amphetamin/Meth Scrn MDMA (Ecstasy) Screen U Benzodiazepines Scrn Loleta < 0.2 L Ur Cocaine Metabolite U Marijuana (THC) Screen Ethyl Alcohol mg/dL 08/03/19 08/03/19 08/03/19 17:58 19:00 20:40 WBC RBC Hgb Hct MCV MCH MCHC RDW Std Deviation RDW Coeff of Ronald Plt Count MPV Immature Gran % (Auto) Neut % (Auto) Lymph % (Auto) Gonzales % (Auto) Eos % (Auto) Baso % (Auto) Immature Gran # (Auto) Neut # (Auto) Lymph # (Auto) Gonzales # (Auto) Eos # (Auto) Baso # (Auto) Sodium Potassium Chloride Carbon Dioxide Anion Gap BUN Creatinine Est Cr Clr Drug Dosing Est GFR ( Amer) Est GFR (Non-Af Amer) BUN/Creatinine Ratio Glucose Fasting Glucose Calcium Total Bilirubin AST ALT Alkaline Phosphatase Total Protein Albumin Globulin Albumin/Globulin Ratio Triglycerides Cholesterol LDL Cholesterol, Calc VLDL Cholesterol, Calc HDL Cholesterol Cholesterol/HDL Ratio TSH Urine Color Urine Appearance Urine pH Ur Specific [place] Urine Protein Urine Glucose (UA) Urine Ketones Urine Blood Urine Nitrite Urine Bilirubin Urine Urobilinogen Ur Leukocyte Esterase Urine WBC (Auto) Urine RBC (Auto) U Hyaline Cast (Auto) U Epithel Cells (Auto) Urine Bacteria (Auto) Nasal Screen MRSA (PCR) Negative Salicylates Urine Opiates Screen Neg Ur Methadone, Qual Neg Acetaminophen Urine Barbiturates Neg Ur Phencyclidine (PCP) Neg U Amphetamin/Meth Scrn Neg MDMA (Ecstasy) Screen Neg U Benzodiazepines Scrn Neg Loleta Ur Cocaine Metabolite Neg U Marijuana (THC) Screen Neg Ethyl Alcohol mg/dL < 3.0 08/03/19 08/07/19 08/09/19 20:40 06:05 08:01 WBC RBC Hgb Hct MCV MCH MCHC RDW Std Deviation RDW Coeff of Ronald Plt Count MPV Immature Gran % (Auto) Neut % (Auto) Lymph % (Auto) Gonzales % (Auto) Eos % (Auto) Baso % (Auto) Immature Gran # (Auto) Neut # (Auto) Lymph # (Auto) Gonzales # (Auto) Eos # (Auto) Baso # (Auto) Sodium Potassium Chloride Carbon Dioxide Anion Gap BUN Creatinine Est Cr Clr Drug Dosing Est GFR ( Amer) Est GFR (Non-Af Amer) BUN/Creatinine Ratio Glucose Fasting Glucose 109 H Calcium Total Bilirubin AST ALT Alkaline Phosphatase Total Protein Albumin Globulin Albumin/Globulin Ratio Triglycerides 115 Cholesterol 221 H LDL Cholesterol, Calc 148 VLDL Cholesterol, Calc 23 HDL Cholesterol 50 Cholesterol/HDL Ratio 4 TSH Urine Color Yellow Urine Appearance Clear Urine pH 5.0 Ur Specific [place] 1.020 Urine Protein Negative Urine Glucose (UA) Negative Urine Ketones Negative Urine Blood 2+ H Urine Nitrite Negative Urine Bilirubin Negative Urine Urobilinogen Negative Ur Leukocyte Esterase 2+ H Urine WBC (Auto) >30 H Urine RBC (Auto) 0-4 U Hyaline Cast (Auto) 1-5 U Epithel Cells (Auto) >30 H Urine Bacteria (Auto) Negative Nasal Screen MRSA (PCR) Salicylates Urine Opiates Screen Ur Methadone, Qual Acetaminophen Urine Barbiturates Ur Phencyclidine (PCP) U Amphetamin/Meth Scrn MDMA (Ecstasy) Screen U Benzodiazepines Scrn Loleta 0.4 L Ur Cocaine Metabolite U Marijuana (THC) Screen Ethyl Alcohol mg/dL 08/15/19 08/15/19 07:48 07:48 WBC RBC Hgb Hct MCV MCH MCHC RDW Std Deviation RDW Coeff of Ronald Plt Count MPV Immature Gran % (Auto) Neut % (Auto) Lymph % (Auto) Gonzales % (Auto) Eos % (Auto) Baso % (Auto) Immature Gran # (Auto) Neut # (Auto) Lymph # (Auto) Gonzales # (Auto) Eos # (Auto) Baso # (Auto) Sodium 135 L Potassium 3.9 Chloride 102 Carbon Dioxide 28 Anion Gap 5.0 BUN Creatinine Est Cr Clr Drug Dosing Est GFR ( Amer) Est GFR (Non-Af Amer) BUN/Creatinine Ratio Glucose Fasting Glucose Calcium Total Bilirubin AST ALT Alkaline Phosphatase Total Protein Albumin Globulin Albumin/Globulin Ratio Triglycerides Cholesterol LDL Cholesterol, Calc VLDL Cholesterol, Calc HDL Cholesterol Cholesterol/HDL Ratio TSH Urine Color Urine Appearance Urine pH Ur Specific [place] Urine Protein Urine Glucose (UA) Urine Ketones Urine Blood Urine Nitrite Urine Bilirubin Urine Urobilinogen Ur Leukocyte Esterase Urine WBC (Auto) Urine RBC (Auto) U Hyaline Cast (Auto) U Epithel Cells (Auto) Urine Bacteria (Auto) Nasal Screen MRSA (PCR) Salicylates Urine Opiates Screen Ur Methadone, Qual Acetaminophen Urine Barbiturates Ur Phencyclidine (PCP) U Amphetamin/Meth Scrn MDMA (Ecstasy) Screen U Benzodiazepines Scrn Loleta 0.7 Ur Cocaine Metabolite U Marijuana (THC) Screen Ethyl Alcohol mg/dL Hospital Course (1) Schizoaffective disorder, bipolar type: 08/04/19 -The patient has been admitted to the [facility] behavioral health unit and has been placed in special observation room. She is also being monitored with close observations and every 15-minute direct observation. When more stable she will be actively encouraged to participate in individual, group, and activity therapies. We will also attempt to involve the family if the patient permits us to and if they agree. -Although she was given a diagnosis of schizophrenia in the emergency room, the record, and the patient's presentation, is more consistent with a diagnosis of schizoaffective disorder, bipolar type. She has a reported history of responding favorably to risperidone, and, in addition, she had been prescribed lithium carbonate prior to admission. The issue may be nonadherence with these medications, and the first plan is to restart them at risperidone 3 mg in the morning and 4 mg at bedtime (oral dissolving tablets to help assure adherence) and lithium carbonate 300 mg twice a day with a plan to check her lithium level next week. 08/04 -Interview was difficult again today due to apparent paranoia and lability of affect while utilizing service manager services. Cannot rule out cognitive dysfunction in addition to psychosis. Appears she was not restarted on AM dose of risperdal yesterday. Will attempt to reconfirm prior home dose before restarting due to higher risk for SE at that dose and increased risk for EPS if titrated too quickly. We will continue to expand database as able. 08/05 -Affect remains odd and suspicious however she has not been overtly agitated or aggressive. -We will add 2 mg morning dose of Risperdal tomorrow working towards home dose of 3 mg in the morning and 4mg at bedtime -Ordered fasting glucose and lipids for a.m. for monitoring on atypical antipsychotic 08/06 -Patient remains psychotic, delusional, unable to come up with a reasonable discharge plan (today states she owns a house in [place] that she just bought, but wants the address and does not know where it is). She denies that her family has a PFA against her or that she has any legal problems. She is not a reliable historian, and we will reach out to her [facility] to try to get additional collateral information. -303 hearing scheduled for tomorrow, will request a discharge planning meeting with the [facility] afterwards. -Continue lithium and risperidone, and explore options for outpatient treatment/obtaining medications given her lack of resources. -Fasting labs reviewed for monitoring on an atypical antipsychotic; glucose 109, cholesterol 221, remainder within normal limits. 08/07 -303 hearing held and granted. Recommend 304 IOC given her history of treatment noncompliance, lack of insight, frequent hospitalizations, and severity of psychotic symptoms and erratic, unsafe behavior when acutely ps ychotic. -Request records from psychiatric treatment while incarcerated. Patient refused to sign INO for [facility] (where she was referred for outpatient treatment during her 2018 hospitalization here). -Get collateral information from family, as patient reports they were helping her to establish housing. She signed an INO for her grandson who was also the 302 petitioner. -Discharge planning meeting with [facility] Lizzy Pandey. Explore options for housing assistance and OP care (numerous barriers including language, lack of resources/income, citizenship, lack of insurance, poor insight and adherence). -Continue risperidone and increase to 3mg qam and 4mg hs. Explore options for CANTOR (will depend largely on where/how she will access OP care, as no insurance so will have to explore ways to get CANTOR covered). Check w/ [facility] re: ability to supply/administer CANTOR. -Continue lithium and check trough level tomorrow. 08/08 - Pt declines feeling a need to adjust medications - Attempted to discuss subtherapeutic lithium level (0.4) - will offer patient 600mg tonight and continue the 300mg dose each morning - Limited ability to communicate with service manager service today, as patient does not speak at a volume loud enough for service manager to accurately translate despite many attempts to swimming coach or instructor patient - Awaiting additional communication from [facility] regarding CANTOR options available 08/09 -Loleta dose increased today to 450 mg twice daily; recheck trough level after 5 days (08/15/2019). -Change risperidone to paliperidone, with plan to transition to Invega Sustenna if it is effective and well-tolerated. Sustenna preferred over Risperdal Consta as it can be administered every 4 weeks instead of every 2. She already received her morning dose of risperidone, so will give 3 mg of paliperidone tonight, and 6 mg once daily starting tomorrow. -Patient has now signed releases for [facility] and [facility], so we will request records to clarify previous psychiatric treatment and response. 08/10 - Continue lithium 450mg BID, lithium level scheduled for 08/15/2019 - Continue paliperidone 6mg qAM - ongoing attempts to coordinate with [facility] regarding CANTOR options. Patient's lack of Social Security Number is possibly a barrier to applying for patient assistance programs for medications. Could consider titration of paliperidone to 9mg daily if tolerated. - Meeting between our team, the [facility] and [facility] has been scheduled for 08/15 to discuss aftercare and discharge planning 08/11 - monitor for ongoing improvement on higher dose of Loleta and Invega, will be converted to injectable if means to continue outpatient. 08/12 --Reviewed. Will give first of 2 Invega loading injections today, no clear aftercare plan in place so primary team can determine timing of/need for 2nd injection. At minimum she would have more coverage with medication when leaves the hospital. Ideally she would have discharge instructions/senior media planner instructions in Bermudian. 08/13 - Currently patient seems more restless, not accepting of need for discharge planning and given her history of incarceration I believe this is the cause rather than worsening bipolar. Will monitor. Explained to patient court order (commitment) at this time and need for county meeting. Encouraged her to consider assistance with relocation to a city with more [place] speaking people, like [place] or previous alf offered. Plan: lithium level in am, states she won't take PO meds after discharge. 08/14 - Continue current medication regimen - patient can be given second loading dose of Invega Sustenna as early as 08/16 - Loleta level obtained this morning - within therapeutic range at 0.7. Can consider further titration as indicated. - Electrolytes obtained with AM blood work as well. Sodium level is slightly low at 135; all other values were WNL - Pt continues to be preoccupied with discharge, but is able to verbalize desire to continue medications as prescribed on an outpatient basis - Discharge planning meeting is scheduled for tomorrow with the [facility] and [facility] 08/15 -Discharge planning meeting: No current outpatient treatment options, unwilling to accept assistance to complete visa or [place] applications, no way to get medications and no outpatient clinicians available. -Remains unwilling to explore options for alf/housing. -File for 304 hearing to be held next week. 08/16 - Meeting held today with patient's CM and social media editor - patient provided verbal permission to work with CM while in the hospital and to allow her to coordinate with [facility] and the patient's brother - We continue to explore possible options for ongoing Invega Sustenna injections - patient did receive her second initiation injection today - 304 hearing scheduled for 08/20 at 10:00 08/18 - Continue PO Invega given severity of psychosis and fact that she is tolerating it well. 08/19 -Continue current treatment plan; 304 hearing tomorrow; will coordinate with her [facility] after regarding discharge planning. Many barriers, including illegal status in this country, lack of insurance or income, lack of family support, and homelessness. Additionally, her psychosis is impairing her from participating fully in discharge planning, as she has a delusion that she owns a home in [place] and can go there, so is unwilling to work with us for alternative housing options. She additionally does not appear to appreciate her lack of resources, for example has no way to get food or emergency alf if needed, but is unconcerned about this. She currently has a PFA from multiple family members against her, but likewise does not recognize this, and has already violated it multiple times since she was released [facility]. 08/20 -304 held and granted. Continue current meds (li and Invega Sustenna and PO). -Continue discharge planning: [facility] and [facility] exploring options for IOC/outpatient care ([facility], how to get medications covered). Continue to encourage patient to complete necessary applications ([place]isa, [place]) to access services, and to accept help w/ housing (currently limited by her psychosis). -Patient continues to endorse delusions, does not believe that her family has a PFA against her. We will attempt to get a copy of the PFA in B[place]ian for her. 08/21 - Continue current medication regimen - patient reports feeling as though the medications are helpful. Stating she understands the benefit of medications and will continue both the injections and oral medications on discharge. - Referrals placed to [facility] for outpatient treatment on an IOC. Will continue attempts to work with patient to complete applications for her [place]isa/[place]. 08/22 - Continue current medication regimen - Continue to engage patient in meetings with her outpatient disease case manager to coordinate discharge plans - pt is agreeable with outpatient follow-up at [facility], but is still not able to provide a reliable address and is not willing to consider alternative shelters, even ones that involve bilingual staff 08/23 - Continue current medication regimen - Meeting held today with [facility] representatives to discuss discharge planning - there is reportedly potential that [facility] may detain and deport the patient based on numerous violations of the PFA, but no clear details of this timeline at this time. - Continue attempts to engage the patient in treatment, but she remains very irritable and tolerance with conversations regarding discharge planning are very limited. 08/27--continue current medications and treatment plan 08/28 -Continue current medication regimen. -Patient confirms that she will follow-up with outpatient psychiatrist for further treatment, saying "all my family members including my , mom, brother and sister will go to the appointment with me. " 08/29 -Prescriptions printed for Invega Sustenna 234 mg due on 09/17/2019, paliperidone 6 mg p.o. daily, and lithium 450 mg twice daily. Coordinating discharge with her BCM, Lizzy Pandey. Patient continues to refuse referrals to [facility] or other shelters, but will give her discharge paperwork translated into B[place]udian with contact information for the [facility] crisis line, her disease case manager, local shelters, and [facility]. -Patient is being discharged on a 304 involuntary outpatient commitment. -Patient's disease case manager is notifying her family of her discharge. Multiple family members have a PFA against her, which the patient violated several times in the week and a half she was in the community after being released from [facility] and prior to this hospitalization. She has been reminded of this PFA multiple times during her hospitalization, and we requested a copy of it in [place] from the court, but they did not provide it. -Patient's disease case manager has been in contact with [facility] and other government agencies regarding the patient's illegal immigration status, and they are aware but have declined any action. -The [facility] is assisting the patient with outpatient treatment at [facility], with an intake 09/14/2019 and a psychiatric appointment 09/18/2019. (2) Noncompliance with medication regimen: 08/04/19 - The patient indicates that she has stopped taking her medicine because the names of the directions for the medications are in Micronesian and she cannot read them. She also indicates that she no longer has access to her medications and has not taken any for approximately 5 days. The patient also claims to not recall the names of any of her medications and reports that she does not have the conditions for which her known medications are clearly intended. She also seems not to be oriented to year, and memory deficits on testing suggests that there may be some cognitive impairment as well. -The patient's underlying psychiatric condition will be actively treated. It is hoped that with treatment we will be able to better assess whether the patient can independently manage medications, or if she will need active assistance in this regard when she returns to the community. -She has a history of favorably responding to risperidone. We will start the patient on risperidone M tabs at her reported outpatient recommended dose, and as tolerated we will talk to the patient about converting to a Depo form of risperidone, given her history of medication nonadherence. 08/04 -Has been compliant with lithium and Risperdal in the hospital -reviewed Li 0.2 on 08/03/1908/07 - Would benefit from [facility]ATOR and will explore options once we know where she will get outpatient treatment. Barriers include finances, lack of insurance, homelessness, lack of supports, poor insight. 08/12-reviewed. 08/14 - Pt was started on Invega Sustenna 234mg on 08/13/2019, can receive second injection as soon as 08/17/2019 - Will need to discuss ability to continue the injections with the [facility] and [facility] at tomorrow's discharge planning meeting 08/15 -Patient more irritable, stating she will not take medications or accept further injections. -Discharge planning meeting held with [facility] and [facility]; patient has many barriers to accessing treatment, including lack of valid visa, lack of insurance or funding, [facility] unwillingness to provide treatment, and inability to get med ication. She is homeless, has no support from family, and has legal problems. She will need a 304 IOC. 08/16 - Patient has now completed the initiation series of injections for Invega Sustenna - continue attempts to ensure patient can receive the injections on an outpatient basis 08/29 -[facility] [employer] will assist patient to obtain her prescription medications. -Recommend Invega Sustenna 234 mg every 4 weeks, next due 09/17/2019. Patient can be tapered off of oral paliperidone as an outpatient. (3) Homeless: 08/04/19 -Until recently, the patient reportedly had been living in a motel room and a "[employer]" motel in [place]. This accommodation was provided through a local benevolent organization known as "[employer]." However, this organization has notified us today that they were only able to provide accommodations during cold weather seasons and that, accordingly, they will not be able to provide accommodations over the balance of the spring, summer, and early derian. -In the past, the patient is live with family members. However, this is clearly not an option at the present time. The context is that the patient reportedly was in group home for approximately a year because of her making terroristic threats against the family. While it does seem clear that the family wants to help protect her, they are unable to safely provide alf. Given the patient's history of neglect of self-care, medication nonadherence, and possible cognitive deficits we are going to investigate structured residential programs as part of our discharge planning. 08/09 -Outpatient disease case manager reports that 2 shelters with bilingual staff were identified prior to the patient leaving [facility] -[facility] and [facility] in [place]. She remains unwilling to explore housing options, expressing a delusion that she owns a home locally that she can return to. She also believes that her family is living in her home and preventing her from using it. Her outpatient disease case manager reports there is an active PFA against the patient from her family, which limits our ability to involve them in treatment. She also reports that the Department of [employer] and [employer] were both notified of the patient's illegal status in this country, but declined to deport her to [place]. 08/10 - Pt continues to verbalize anticipated discharge plans that cannot be confirmed and communication is limited by patient's refusal and PFAs against various family members. - Pt now stating that she is planning to live with her mother in [place] and that she will be picking her up on discharge - patient also admits that she has had no communication with her mother since her admission. 08/18 -Patient continues to refuse assistance with housing, insisting she owns a house and in fact "many houses," and gave us an address that is not real 08/21 - Confirmed that patient's brother, Earle, is not listed on the PFA - phone call placed to gather collateral information, discuss housing options 08/22 - Pt is now saying she remembers her address is "[address] [facility] ([facility] [address] but is unable to give a description of surrounding landmarks. Multiple internet searches have been conducted with no matching information - Pt is declining offers to explore bilingual shelters or [facility] which reportedly has bilingual staff. 08/27 -social media editor to revisit [facility]. If stays in [facility] can have aftercare at [facility] and outpatient commitment. 08/28 - Pt does not believe that her family members filed PFA against her, stating "t hat is not true and everything is cleared at this point." 08/29 -The patient continues to refuse recommendations for a referral to a local alf. Her outpatient disease case manager is aware, and we have no legal means to force her to accept assistance with housing. The patient has reportedly lived on the streets in the past, and current temperatures are warm, so sleeping outside would not be life-threatening. She continues to states she owns a house in town and can stay there, but has been unable to provide us with a legitimate address, it appears that this is a delusion. -The patient has been informed by multiple staff on multiple occasions throughout this hospitalization that her family members who live in [place] have a PFA against her and she is not allowed to contact them. She does not believe this, and it is likely that she will violate the PFA again. Her outpatient disease case manager has been in touch with the family and will inform them of her discharge. We attempted to contact multiple family members during the hospitalization to gather information, as they were involved in her involuntary commitment and presentation to the ER, but they have not returned any of our [place] calls. Mental Health & Subst Abuse [facility]x Psychiatrist Name of Psychiatrist: Jackelin Psychiatrist's Psychiatric Appointment Comment: [id number] [place] [id number] Therapist Name of Therapist: Jackelin Montanahannah Conleyle Therapist's Date of Therapist Appointment: 09/14/19 Time of Therapist Appointment: 11:00 a.m. Therapy Appointment Comment: This will be the intake appt, with referral to Dr. Hayes for Sunday 09/17 Therapist Release of Information: Obtained, Reviewed and Signed Market Asset Protection Manager Name of Market Asset Protection Manager: [facility] Christianne Ball Phone Number for Market Asset Protection Manager: [phone] Post Discharge Appointments Smoking Cessation Counseling Tobacco Cessation Medication Prescribed at Discharge: Not Applicable/Non-Smoker Contact Information Discharge Phone Number: Unknown Discharge Address: No known address Discharge Plan Discharge Items Patient Disposition: Home - Self-Care Reason For Visit: SCHIZOPHRENIA Discharge Diagnosis: Schizoaffective disorder, bipolar type Treatment noncompliance Activity: Per Instructions section Non-emergency contact: Psychiatrist and Tree Inspector Call non-emergency contact if: you have any medication questions and your symptoms worsen Follow-up/Referrals: PCP,NO [Primary Care Provider] - Diet: Regular Addtl Attending Provider Instructions: SPECIAL CARE INSTRUCTIONS: 1. Follow through with your scheduled aftercare appointments. If unable to keep an appointment, please call to reschedule. 2. Take your medication only as prescribed. Medication should not be changed or stopped without the approval of your doctor. In the event of worsening symptoms or concerns about side effects, contact your doctor immediately. 3. Utilize new healthy coping skills, anger management skills, and stress management skills learned during your hospitalization. Journal feelings and process them with a support person. Identify stressors or situations that may result in relapse, deterioration or inappropriate behaviors and develop a plan to deal with those issues. 4. If your coping skills are ineffective and you are in crisis, contact your outpatient providers for direction. If unable to reach your providers, please call the CAN HELP LINE AT or go to the closest Emergency Room. 5. Avoid alcohol and un-prescribed drugs. 6. You have been provided with the Mental Health Advance Directives Pamphlet for your review. AFTERCARE APPOINTMENTS: * Please call your insurance company prior to your scheduled appointment to confirm your aftercare providers are covered. Take your insurance information to your appointments. WHO TO CALL AND WHEN: Medical Emergencies: For questions or emergencies related to your hospital stay, please contact the Inpatient Behavioral Health Unit at [phone]. A recreation instructor is on-call 12/10 for the Behavioral Health Unit for emergencies At any time you feel your situation is an emergency, you may also call 911 immediately. Your Doctors Instructions noted above were prepared by provider Margaret Amador MD. Pending Studies at Discharge: No Stand-Alone Forms: My [facility] [employer], Smoking Cessation Medications and DC Order Prescriptions: New lithium carbonate 450 mg tablet extended release 450 mg PO BID Qty: 60 RF: 0 paliperidone 6 mg tablet extended release 24hr 6 mg PO QAM Qty: 30 RF: 0 Invega Sustenna 234 mg/1.5 mL syringe 234 mg IM Q4WK Qty: 1.5 RF: 0 Continued simvastatin [Zocor] 10 mg Tablet 10 mg PO HS RF: 0 levothyroxine [Synthroid] 75 mcg Tablet 75 mcg PO DAILY RF: 0 Discontinued trazodone 50 mg Tablet 50 mg PO HS RF: 0 risperidone 4 mg Tablet 4 mg PO HS RF: 0 risperidone 3 mg Tablet 3 mg PO DAILY RF: 0 lithium carbonate 300 mg Capsule 300 mg PO BID RF: 0 benztropine 2 mg Tablet 2 mg PO BID RF: 0 Discharge Orders: Discharge Order (Routine); Ordered 08/30/19 Ordered By: Margaret Amador Admission Data Admit Date/Time: 08/03/19 20:47 Attending Provider: Margaret Amador Admit Provider: Siria Gonzalez Primary Care Provider: PCP,NO Other Interventions: PSY Interdisciplinary Discharge Planning Last Done: 08/24/19 13:53 Coding Level of Care Code 01634 D/C day mgmt > 30 min Diagnoses Schizoaffective disorder, bipolar type F25.0 Noncompliance with medication regimen Z91.14 Homeless Z59.0
[2019-08-30] MEDS ORDERED: DESTROY THIS MEDICATION ONE (11:30)
== END 2019-08-30 14:08 | disposition home or self-care (01) | DRG 885 ==
LOC: ED 17:14 → SUATTDRO 20:47 → 3S 20:47

== ENCOUNTER 2019-09-02 23:52 | Inpatient (IN) ==
[2019-09-03 00:26] LABS: Basophils # (auto) 0.04 K/uL (0-0.2); Basophils % (auto) 0.3 %; Eosinophils # (auto) 0.07 K/uL (0-0.5); Eosinophils % (auto) 0.6 %; Hematocrit (blood only) 41.1 % (37-47); Hemoglobin 13.1 g/dL (12.0-16.0); Immature Granulocytes # (auto) 0.02 K/uL (0.00-0.02); Immature Granulocytes % (auto) 0.2 %; Lymphocytes # (auto) 1.78 K/uL (1.2-3.4); Lymphocytes % (auto) 14.4 %; Mean Corpuscular Hemoglobin 28.5 pg (25-34); Mean Corpuscular Hgb Conc 31.9 g/dL (32-36); Mean Corpuscular Volume 89.5 fL (80-100); Mean Platelet Volume 9.6 fL (7.4-10.4); Monocytes # (auto) 0.86 K/uL (0.11-0.59); Neutrophils # (auto) 9.55 K/uL (1.4-6.5); Neutrophils % (auto) 77.5 %; Platelet Count 413 K/uL (130-400); RDW Coefficient of Variation 13.8 % (11.5-14.5); RDW Standard Deviation 45.2 fL (36.4-46.3); Red Blood Count 4.59 M/uL (4.2-5.4); White Blood Count 12.32 K/uL (4.8-10.8)
[2019-09-03 00:30] LABS: Appearance Urine Clear (Clear); Bacteria Urine Automated Negative (Negative); Blood Urine 2+ (Negative); Color Urine Dark Yellow; Glucose Urine UA Negative (Negative); Ketones Urine Trace (Negative); Leukocyte Esterase Urine 2+ (Negative); Nitrite Urine Negative (Negative); Protein Urine 1+ (Negative); Specific Gravity Urine 1.027 (1.000-1.030); Urobilinogen Urine Negative (Negative); WBC Urine Automated >30 /hpf (0-5)
[2019-09-03 00:36] LABS: Bilirubin Urine Negative (Negative); Ictotest Urine Negative (Negative)
[2019-09-03 00:44] LABS: Albumin Level 3.7 gm/dl (3.4-5.0); Calcium 8.8 mg/dl (8.5-10.1); Creatinine Clr Calc Pharmacy 67.1 ml/min; Est GFR (African American) 85.7; Potassium 3.1 mmol/L (3.5-5.1)
[2019-09-03 00:45] LABS: Amphetamines+Metham, Urine Neg (Neg); Barbiturates, Urine Neg (Neg); Benzodiazepine, Urine Neg (Neg); Cocaine, Urine Neg (Neg); MDMA (Ecstacy), Urine Neg (Neg); Methadone, Urine Neg (Neg); Opiate, Urine Neg (Neg); Phencyclidine, Urine Neg (Neg)
[2019-09-03 00:54] LABS: Albumin Globulin Ratio 0.7 (0.9-2); Bilirubin,Total 0.6 mg/dl (0.2-1); Globulin 5.1 gm/dl (2.5-4.0); Thyroid Stimulating Hormone 2.43 uIu/ml (0.300-4.500); Total Protein 8.8 gm/dl (6.4-8.2)
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
[2019-09-03 01:42] LABS: Acetaminophen < 2 ug/ml (10-30)
[2019-09-03 01:43] LABS: Salicylate 1.8 mg/dl (2.8-20)
[2019-09-03] MEDS ORDERED: SIMVASTATIN 10 MG TAB PO ONE (05:11)
[2019-09-03] MEDS ORDERED: LITHIUM CARBONATE 450 MG TABCR PO STA (05:11)
[2019-09-03] MEDS ORDERED: ALUMINUM/MAGNESIUM SUSP 30 ML UDC PO PRN (05:42)
[2019-09-03] MEDS ORDERED: MAGNESIUM HYDROXIDE SUSP 30 ML UDC PO PRN (05:42)
[2019-09-03] MEDS ORDERED: BISMUTH SUBSALICYLATE PER ML OMNICELL CHARGE PO PRN (05:42)
[2019-09-03] MEDS ORDERED: SODIUM CHLORIDE 0.65% NA SOLN 45 ML (OCEAN) PRN (05:42)
[2019-09-03] MEDS: LEVOTHYROXINE SODIUM 75 MCG TABLET PO SCH (11:32)
[2019-09-03] MEDS: PALIPERIDONE 3 MG TABCR PO SCH (11:33)
--- NOTE | 2019-09-03 16:24 | History & Physical ---
Date of Service September 03, 2019 Impression / Recommendations Impression This 63-year-old female with schizoaffective disorder bipolar type was been admitted through the emergency department on a 302 commitment following a petition. She was just discharged from extended psychiatric admission on this same unit with discharge on 08/29, 4 days ago and a prior separate ER visit within a day of her discharge as well. She is exhibiting disorganized behaviors and psychosis that is having at acute risk of harm to self including walking into traffic. She appears to not be complaint with her po Meds since discharge .She is disorganized and appears to not have steady housing despite attempts for aftercare and disposition at recent hospital course. (1) Noncompliance with medication regimen: 09/03/19 - Unable to clarify if pt has been taking her medications regularly in the days since discharge. She at first indicated that she was not then indicated the medications are a bag of hers but did not indicated actually taking them The patient also claims to not recall the names of any of her medications and reports that she does not have the conditions for which her known medications are clearly intended. Possible cognitive impairments. might be impacting medication compliance. language impairments with pt not speaking Khmer impacting compliance concerns. l. -The patient's underlying psychiatric condition will be actively treated. It is hoped that with treatment we will be able to improve medication compliance and also address aspects that impact compliance and improve this with appropriate interventions. CANTOR form of Invega to be continued at this time,next dose not due for another 2 weeks. Pt took meds this morning that were offered to her but given her extensive non compliance prior to, during and seeming after recent admission and lack of insight to her dx and presentation and indicating that recent hospitalization was quite helpful for her and her indicating wanting to continue her medications as was rx' at end of recent [facility] admission and were instructed oat take at that discharge. I am in favor of medication over objection if pt objects to taking her medication during the course of this admission or if it is determined that pt is checking or not actually taking her medications. Present on Admission?: Yes (2) Psychosis: 09/03/19 -The patient has been admitted to the locked, secured behavioral health unit and has been placed in special observation room. She is also being monitored with close observations and every 15-minute direct observation. When more stable she will be actively encouraged to participate in individual, group, and activity therapies. We will also attempt to involve the family if the patient permits us to and if they agree. - Resuming medications as was rx'd at time of discharge on 08/29 including pH Invega, LAB Invega, and lithium at recent doses. (3) Homeless: 09/03/19 --In the past, the patient is live with family members. However, this is clearly not an option at the present time. The context is that the patient reportedly was in residential for approximately a year because of her making terroristic threats against the family. While it does seem clear that the family wants to help protect her, they are unable to safely provide penitentiary. Given the patient's history of neglect of self-care, medication nonadherence, and possible cognitive deficits we are going to investigate structured residential programs as part of our discharge planning. Present on Admission?: Yes Inventory Assets Strengths: Agrees to take medications. Basically cooperative with treatment. P belkis on approach. Concerned family members. Needs: Resolution of psychotic features. Medication adherence. Stable living environment. 4) smoking cis Nicotine Patch 7mg topical daily resumed, and smoking cessation to be done when pt is in more apposite mental state to do so Inventory Assets Strengths: concerned family members, pleasant on approach Needs: stable housing, improved compliance to medication and treatment plan Risk Factors Assessment Male: No : No Mental Health Diagnoses: Yes Substance Use Disorders: No Previous Psychiatric Hospitalization: Yes Smoker: Yes Protective Factors Assessment Employed: No Psychiatric History Identifying Data ANDREW CYR is a 63-year-old F who currently is homeless in [facility], has a history of schizoaffective disorder, bipolar type, and was admitted on 09/03/19 05:42 on a 302 involuntary commitment for psychotic symptoms with disorganized thinking and behaviors that had her being a danger to herself.. Chief Complaint "My family thinks I need to be here" History of Present Illness The patient is a 63-year-old woman with a long history of psychotic illness as well as a history of multiple psychiatric hospitalizations, including at least 2 previous admissions to the behavioral health unit at [facility], most recent one from [id number] for similar presentation. Pt has had a ER visit at [facility] a day of discharge and then this ER visit leading to this 302 admission. She is reported to have been walking in and out of traffic dodging cars with disorganized thinking and behaviors leading to this behavior. Paranoid delusional thinking of family members seeking to kill her. She lowered her pants while outside to attempt to show how her intestines were coming out of her body. She is not fluent in Khmer and interview was conducted with interpretive services through the IPAD program that [facility] uses. She expressed lack of insight into her condition and into her presentation and recent behaviors. She denied any symptoms or concerns f her mood.She kain oat know her medications and appears to have not been taking them since discharge 4 days ago. She feels her family members sometimes understand her but sometimes do not. She denied AH or VH or paranoid or disorganized thinking while exhibit some disorganization to her thinking during the interview. No overt responding to internal stimuli though during this interview. It is noted that the family has an active PFA order against her. Additional information is currently being sought from the [facility] health records, and from [facility] where she reportedly had previously been a patient. According the patient, she has no psychiatric illness and does not recall the name of any of her medications. laughing inappropriate at times, given meds rx'd pt likely has GERDm hypothyroidism and dyslipidemia but pt does not endorse these medical conditions Past Psychiatric History Previous Psych History: The patient acknowledges a history of multiple psychiatric hospitalizations but is either unable or unwilling to identify any of the previous admissions. There is a history of a previous psychiatric hospi talization on the behavioral health unit at [facility] in 2018. The special education case manager also indicates that the patient had previously been a patient at [facility]. Current Psychiatric Diagnosis: Schizoaffective Disorder, Bipolar Type Previous Psych Admissions: Patient reports a history of a number of psychiatric hospitalizations. We have a record of her hospitalization on the behavioral health unit in 2018. At that time, she responded favorably to risperidone. There is also an indication that she had been hospitalized at [facility] in the past. Do You Have Access To A Gun?: No History of Previous Suicide Attempt: Yes (The patient reports that she does not have any history of suicide attempts. However, the 2018 [facility] behavioral health unit record notes that there was a report that she had intentionally cut her wrists in 2017) Describe Attempts in the Past: Possible past attempt by cutting her wrist Past Medication Trials: Record indicates the patient has a history of favorable response to risperidone. Current Psychiatric Diagnosis: schizoaffective disorder bipolar type Outpatient Services: upcoming intake appt at [facility] on September 16 Describe Attempts in the Past: per family - numerous prior attempts injected rat poison, formaldehyde Past Head Trauma/Neuro History History of Concussion/Seizure: No pt denied h/o concussion or sz but not a reliable historian Allergies Allergy/AdvReac Type Severity Reaction Status Date / Time No Known Allergies Allergy Verified 07/28/19 16:38 Home Medications Home Medications Medication Instructions Recorded Confirmed Type levothyroxine [Synthroid] 75 mcg PO DAILY 07/28/19 09/03/19 History simvastatin [Zocor] 10 mg PO HS 07/28/19 09/03/19 History lithium carbonate 450 mg PO BID #60 tab 08/30/19 09/03/19 Rx paliperidone 6 mg PO QAM #30 tab 08/30/19 09/03/19 Rx paliperidone palmitate [Invega 234 mg IM Q4WK #1.5 ml 08/30/19 09/03/19 Rx Sustenna] Family History Family History of: Doesn't Know Family Mental Health History Comment: unknown Alcohol History Hx of Alcohol Use Over the Past 12 Months: No AUDIT Total Score: 0 Smoking Use Have You Smoked or Used Tobacco Products in the Last 30 Days: Yes tobacco type: cigarettes Smoking Status: Current every day smoker Smoking packs per day: 0.25 Substance History Hx of Prescription Med Misuse Over the Past 12 Months: No Hx of Over the Counter Med Misuse Over the Past 12 Months: No Hx of Inhalent Misuse Over the Past 12 Months: No Hx of Organic Substance Use Over the Past 12 Months: Yes (hx of marijuana use) Hx of Illegal Substances/Street Drug Use Over Past 12 Months: No Problems as a Result of Past Substance Use: None Identified Personal History Living Arrangements: Homeless Living Arrangements Comments: Pt refuses penitentiary assistance, stating she has housing but unable to provide an address Born In: [facility] Highest Grade Completed: College Highest Grade Completed Comment: Pt has reported she has completed college Marital Status: Single Beliefs That Will Affect Care: None Legal Problems Comment: Current Legal Problems: Yes (Was recently released from residential where she had been confined secondary to charges of making terroristic threats.) Legal Problems Comment: It is not known if there are any ongoing legal entanglements. The patient also reportedly is an undocumented alien in the [place]. We are told that immigration and custom enforcement ("ICE") has been notified, but no immediate action is planned. Hx Legal Problems: Yes Psychological Trauma History Comment: The patient was not sufficiently coopera tive with the interview to gather information about any past history of trauma. Hx Legal Problems: Yes Psychological Trauma History Comment: unknown and able to clarify in this assessment Patient History Medical History Anxiety (Chronic) Depression (Chronic) Hypercholesteremia (Chronic) Schizoaffective disorder, bipolar type (Acute) Family History Other No pertinent family history Social History Preferred Language: Latvian Communication Ability: Impaired Communication Tools: IPad Visual Impairment: No Limitations Hearing Ability: Normal Lip Reading Teacher Required: Yes Beliefs That Will Affect Care: None Feels Safe at Home: Yes Smoking Status: Current every day smoker Tobacco Type: cigarettes ; Review of Systems Review of Systems: All systems reviewed & are unremarkable except as noted in HPI & below denied any besides headache yesterday and diarrhea today Physical Exam Mental Examination: physical exam done while in the ER on 09/01 performed by was reviewed and considered sufficient and appropriate for the purpose of this admission Psychiatric: Orientation: oriented to person, oriented to place, cooperative and + guarded Apperance: + disheveled; + inappropriately groomed Eye Contact: + poor eye contact Motor Behavior: steady gait and station and no abnormal motor movements soft speech at times Affect: + labile affect Mood: no depressed mood, no anxious mood, no irritable mood and no angry mood Thought Process: + thought process not linear or logical and + thought process not clear or coherent per ER assessment delusional material, pt denied and did not overtly share delusional material Suicidal Thoughts: denies suicidal thoughts Homicidal Thoughts: denies homicidal thoughts denied AH and VH but tends to deny even when seeming to respond to internal stimuli, which was not overtly occurring in this assessment Cognition: + recent memory not intact, + remote memory not intact and + attention not intact difficult to access in this assessment Insight: + severely impaired insight Judgement: + severely impaired judgement Vital Signs (Past 24 Hours): Last Vital Signs Temp 37.3 C 09/03/19 09:00 Pulse 93 H 09/03/19 09:00 Resp 18 09/03/19 09:00 BP 138/84 09/03/19 09:00 Pulse Ox 95 09/03/19 05:47 Results & Data ([facility]) Laboratory Results Laboratory Results - last 24 hr 09/03/19 09/03/19 09/03/19 00:11 00:11 00:11 WBC 12.32 H RBC 4.59 Hgb 13.1 Hct 41.1 MCV 89.5 MCH 28.5 MCHC 31.9 L RDW Std Deviation 45.2 RDW Coeff of Ronald 13.8 Plt Count 413 H MPV 9.6 Immature Gran % (Auto) 0.2 Neut % (Auto) 77.5 Lymph % (Auto) 14.4 Titus % (Auto) 7.0 Eos % (Auto) 0.6 Baso % (Auto) 0.3 Immature Gran # (Auto) 0.02 Neut # (Auto) 9.55 H Lymph # (Auto) 1.78 Titus # (Auto) 0.86 H Eos # (Auto) 0.07 Baso # (Auto) 0.04 Sodium 138 Potassium 3.1 L Chloride 104 Carbon Dioxide 25 Anion Gap 9.0 BUN 12 Creatinine 0.85 Est Cr Clr Drug Dosing 67.1 Est GFR ( Amer) 85.7 Est GFR (Non-Af Amer) 74.0 BUN/Creatinine Ratio 14.0 Glucose 123 H Calcium 8.8 Total Bilirubin 0.6 AST 23 ALT 30 Alkaline Phosphatase 108 Total Protein 8.8 H Albumin 3.7 Globulin 5.1 H Albumin/Globulin Ratio 0.7 L TSH 2.430 Urine Color Urine Appearance Urine pH Ur Specific [place] Urine Protein Urine Glucose (UA) Urine Ketones Urine Blood Urine Nitrite Urine Bilirubin Urine Urobilinogen Ur Leukocyte Esterase Urine WBC (Auto) Urine RBC (Auto) U Hyaline Cast (Auto) U Epithel Cells (Auto) Urine Bacteria (Auto) Salicylates 1.8 L Urine Opiates Screen Ur Methadone, Qual Acetaminophen < 2 L Urine Barbiturates Ur Phencyclidine (PCP) U Amphetamin/Meth Scrn MDMA (Ecstasy) Screen U Benzodiazepines Scrn [place] Ur Cocaine Metabolite U Marijuana (THC) Screen Ethyl Alcohol mg/dL 09/03/19 09/03/19 09/03/19 00:11 00:11 00:11 WBC RBC Hgb Hct MCV MCH MCHC RDW Std Deviation RDW Coeff of Ronald Plt Count MPV Immature Gran % (Auto) Neut % (Auto) Lymph % (Auto) Titus % (Auto) Eos % (Auto) Baso % (Auto) Immature Gran # (Auto) Neut # (Auto) Lymph # (Auto) Titus # (Auto) Eos # (Auto) Baso # (Auto) Sodium Potassium Chloride Carbon Dioxide Anion Gap BUN Creatinine Est Cr Clr Drug Dosing Est GFR ( Amer) Est GFR (Non-Af Amer) BUN/Creatinine Ratio Glucose Calcium Total Bilirubin AST ALT Alkaline Phosphatase Total Protein Albumin Globulin Albumin/Globulin Ratio TSH Urine Color Dark Yellow Urine Appearance Clear Urine pH 5.0 Ur Specific [place] 1.027 Urine Protein 1+ H Urine Glucose (UA) Negative Urine Ketones Trace H Urine Blood 2+ H Urine Nitrite Negative Urine Bilirubin Negative Urine Urobilinogen Negative Ur Leukocyte Esterase 2+ H Urine WBC (Auto) >30 H Urine RBC (Auto) 5-10 H U Hyaline Cast (Auto) 5-10 H U Epithel Cells (Auto) 10-20 H Urine Bacteria (Auto) Negative Salicylates Urine Opiates Screen Neg Ur Methadone, Qual Neg Acetaminophen Urine Barbiturates Neg Ur Phencyclidine (PCP) Neg U Amphetamin/Meth Scrn Neg MDMA (Ecstasy) Screen Neg U Benzodiazepines Scrn Neg [place] Ur Cocaine Metabolite Neg U Marijuana (THC) Screen Neg Ethyl Alcohol mg/dL < 3.0 09/03/19 06:10 WBC RBC Hgb Hct MCV MCH MCHC RDW Std Deviation RDW Coeff of Ronald Plt Count MPV Immature Gran % (Auto) Neut % (Auto) Lymph % (Auto) Titus % (Auto) Eos % (Auto) Baso % (Auto) Immature Gran # (Auto) Neut # (Auto) Lymph # (Auto) Titus # (Auto) Eos # (Auto) Baso # (Auto) Sodium Potassium Chloride Carbon Dioxide Anion Gap BUN Creatinine Est Cr Clr Drug Dosing Est GFR ( Amer) Est GFR (Non-Af Amer) BUN/Creatinine Ratio Glucose Calcium Total Bilirubin AST ALT Alkaline Phosphatase Total Protein Albumin Globulin Albumin/Globulin Ratio TSH Urine Color Urine Appearance Urine pH Ur Specific [place] Urine Protein Urine Glucose (UA) Urine Ketones Urine Blood Urine Nitrite Urine Bilirubin Urine Urobilinogen Ur Leukocyte Esterase Urine WBC (Auto) Urine RBC (Auto) U Hyaline Cast (Auto) U Epithel Cells (Auto) Urine Bacteria (Auto) Salicylates Urine Opiates Screen Ur Methadone, Qual Acetaminophen Urine Barbiturates Ur Phencyclidine (PCP) U Amphetamin/Meth Scrn MDMA (Ecstasy) Screen U Benzodiazepines Scrn [place] < 0.2 L Ur Cocaine Metabolite U Marijuana (THC) Screen Ethyl Alcohol mg/dL Current Inpatient Medications Current Inpatient Medications: Current Inpatient Medications Acetaminophen (Tylenol) 650 mg PO Q4H PRN PRN Reason: Headache or Minor Fever Stop: 10/03/19 05:41 Al Hydrox/Mg Hydrox/Simethicone (Maalox) 30 ml PO Q4H PRN PRN Reason: GI Upset Stop: 10/03/19 05:41 Bismuth Subsalicylate (Kaopectate) 15 ml PO PRN PRN PRN Reason: Loose Stool Stop: 10/03/19 05:41 Hydroxyzine HCl (Vistaril) 50 mg PO HSZ PRN PRN Reason: Insomnia Stop: 10/03/19 05:41 Hydroxyzine HCl (Vistaril) 25 mg PO Q4H PRN PRN Reason: Anxiety Stop: 10/03/19 05:41 Levothyroxine Sodium (Synthroid) 75 mcg PO DAILYBB [facility] Stop: 10/03/19 07:59 Last Admin: 09/03/19 11:32 Dose: 75 mcg Documented by: [place] Carbonate (Eskalith) 450 mg PO BID [facility] Stop: 10/03/19 20:59 Magnesium Hydroxide (Milk Of Magnesia) 30 ml PO DAILY PRN PRN Reason: Constipation Stop: 10/03/19 05:41 Miscellaneous (Remove Nicoderm Patch) 1 ea N/A DAILY@0859 [facility] Stop: 10/04/19 08:58 Nicotine (Nicoderm Cq) 7 mg TD QAM [facility] Stop: 10/03/19 16:14 Paliperidone (Invega) 6 mg PO DAILY [facility] Stop: 10/03/19 08:59 Last Admin: 09/03/19 11:33 Dose: 6 mg Documented by: Paliperidone Palmitate (Invega Sustenna) 234 mg IM Q4WK [facility] Stop: 10/03/19 16:14 Simvastatin (Zocor) 10 mg PO HS [facility] Stop: 10/03/19 21:59 Sodium Chloride ([place] Nasal) 1 - 2 sprays NA PRN PRN PRN Reason: Nasal Dryness/Congestion Stop: 10/03/19 05:41
[2019-09-03] MEDS: NICOTINE 7 MG/24 HR TDSY TD SCH (17:12)
[2019-09-03] MEDS: SIMVASTATIN 10 MG TAB PO SCH (21:30)
[2019-09-03] MEDS: LITHIUM CARBONATE 450 MG TABCR PO SCH (21:30)
[2019-09-04] MEDS: ACETAMINOPHEN 325 MG TAB PO PRN (03:41)
--- NOTE | 2019-09-04 07:45 | Psychiatric Progress Note ---
Date of Service September 04, 2019 Impression / Recommendations Impression 63-year-old [place] female with schizoaffective disorder bipolar type admitted on a 302 commitment 4 days after being discharged from this unit on 08/29 after a 27-day hospitalization. She was discharged on a 304 IOC, and return to the ER later that same day, after police were called due to bizarre behavior at a local grocery store, but was again discharged. Readmitted with psychotic symptoms including paranoia, delusions of persecution (that family and people at the fpc were trying to poison/harm her), refusing to eat with hypokalemia, homelessness, delusions that she owns a home, and inability to provide for her own basic needs. Additionally, family members who petitioned reported she made suicidal statements and walked into traffic, and reported delusions that her son had stabbed her in her intestines were hanging out. They also reported she had been noncompliant with oral psychotropic medications, and although her case coordinator assisted her to fill these on the day of discharge, she did not bring them into the hospital with her and says she does not know where they are. Inpatient treatment is medically necessary due to the severity of her symptoms and risk for suicide if discharged (1) Schizoaffective disorder, bipolar type: 09/03/19 -The patient has been admitted to the locked, secured behavioral health unit and has been placed in special observation room. She is also being monitored with close observations and every 15-minute direct observation. When more stable she will be actively encouraged to participate in individual, group, and activity therapies. We will also attempt to involve the family if the patient permits us to and if they agree. - Resuming medications as was rx'd at time of discharge on 08/29 including po Invega, lithium, and Sustenna. 09/03 -continue current medications, patient is taking them. -File for 306 conversion hearing to be held 09/06/2019. She will likely need referral to the count includes the [facility] due to the need for long-term inpatient treatment. -Reviewed FLP and FG from recent hospitalization 08/07/2019: Cholesterol 221, glucose 109, other values within normal limits. -Attempt to involve family is able; son-in-law Poli is petitioner and was involved in hospitalization so we will ask staff to contact him for collateral information and to determine the family's ability to assist with discharge planning and housing. She has very limited supports in the community and if they are unable to assist her with housing and care, she will likely require long-term hospitalization. -Continue private room for psychosis. (2) Noncompliance with medication regimen: 09/02 - Unable to clarify if pt has been taking her medications regularly in the days since discharge. She at first indicated that she was not then indicated the medications arein a bag of hers but did not indicate actually taking them. The patient also claims to not recall the names of any of her medications and reports that she does not have the conditions for which her known medications are clearly intended. Possible cognitive impairments. might be impacting medication compliance. language impairments with pt not speaking Malian impacting compliance concerns. -The patient's underlying psychiatric condition will be actively treated. It is hoped that with treatment we will be able to improve medication compliance and also address aspects that impact compliance and improve this with appropriate interventions. CANTOR form of Invega to be continued at this time, next dose not due for another 2 weeks. Pt took meds this morning that were offered to her but given her extensive non compliance prior to, during and seeming after recent admission and lack of insight to her dx and presentation and indicating that recent hospitalization was quite helpful for her and her indicating wanting to continue her medications as was rx' at end of recent [facility] admission and were instructed to take at that discharge. I am in favor of medication over objection if pt objects to taking her medication during the course of this admission or if it is determined that pt is checking or not actually taking her medications. (3) Homeless: 09/03/19 -In the past, the patient has lived with family members. However, this is clearly not an option at the present time. The context is that the patient reportedly was in [facility] for approximately a year because of her making terroristic threats against the family. While it does seem clear that the family wants to help protect her, they are unable to safely provide fpc. Given the patient's history of neglect of self-care, medication nonadherence, and possible cognitive deficits we are going to investigate structured residential programs as part of our discharge planning. 09/03 -patient has consistently refused assistance with housing, insisting that she has a house in [place], although has not been able to provide an address in her family states this is not true. (4) Involuntary commitment: 09/03 -patient on a 304 IOC, readmitted on a 302. We will file for a 306 conversion hearing. (5) Nicotine abuse: 09/02 - Nicotine Patch 7mg topical daily resumed, and smoking cessation to be done when pt is in more apposite mental state to do so Inventory Assets Strengths: concerned family members, pleasant on approach Needs: stable housing, improved compliance to medication and treatment plan Risk Factors Assessment Male: No : No Do You Have Access To A Gun?: No Health Problems: No Mental Health Diagnoses: Yes Substance Use Disorders: No Previous Attempt: Yes (Per family, patient denies) Previous Psychiatric Hospitalization: Yes Hopelessness: No Smoker: Yes Protective Factors Assessment : No Responsible for Young Children: No Employed: No Stable Relationships: No Supportive Family: No Good Rapport with Provider: No Interval History Identifying Information ANDREW CYR is a 63-year-old F who currently is homeless in [facility], has a history of schizoaffective disorder, bipolar type, and was admitted on 09/03/19 05:42 on a 302 involuntary commitment for psychosis, suicidal ideation, inability to provide for basic needs, and medication noncompliance. Chief Complaint " Fine thank you". Review of Systems Sleep Information Total Hours of Sleep: 8 Meal Information Percent Meal Consumed - Breakfast: 0 Percent Meal Consumed - Lunch: 100 Percent Meal Consumed - Dinner: 100 Nutrition Comment: pt. allowed to sleep Subjective Subjective Patient was seen & assessed and interval progress reviewed with treatment team. Staff report she has been calm, withdrawn to her room, eating meals, and taking medications as prescribed. She was resumed on lithium and oral paliperidone on admission, although family reported she had not been taking medications after discharge. On my assessment, patient was seen with district representative #[id number]. She gave vague and superficial answers, and often the district representative was unable to understand her and questions had to be repeated multiple times as she would answer with unrelated information. She was unable to describe what happened after she left the hospital, stating "so many things happened, but it's all good, I had to come back." When asked where she was staying in for the 4 days she was out of the hospital, she said "I feel like I lost the formula, I wanted formula, I wants the formula." She later states she stayed with "some friends, they had a little reunion, but I didn't drink anything, just had some cigarettes." She says she saw and talk to multiple family members, including Joseline, Poli, and Morris, at "the reunion." She denies having suicidal tho ughts or thinking that a family member had harmed her, as detailed in the 302 petition. She denies concerns that someone was poisoning her food, or that someone was trying to harm her at the fpc. She asked confused about the fpc, stating she never went to a fpc, and that she was working during the day and staying with friends at night. She says she got food from "leftovers," and denies any concerns about being poisoned. 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 She was informed of her 306 conversion hearing on Wednesday, and the meeting with her case coordinator tomorrow. Physical Exam Psychiatric Orientation: alert and cooperative (Partially, limited historian) Apperance: appropriately dressed Overweight, dressed in ill fitting and stained clothes. Fair hygiene, but hair tangled and disheveled, very unkempt. Eye Contact: + fair eye contact Motor Behavior: steady gait and station and no abnormal motor movements Loud at times, often interrupts the district representative before he can finish interpreting the question, talks over others Affect: mood congruent with affect Initially appears blunted and confused, later irritated. 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) Suicidal Thoughts: denies suicidal thoughts Homicidal Thoughts: denies homicidal thoughts Hallucinations: no auditory hallucinations Cognition: + recent memory not intact and + attention not intact Insight: + severely impaired insight Judgement: + severely impaired judgement Vital Signs (Past 24 Hours) Last Vital Signs Temp 36.7 C 09/04/19 06:38 Pulse 112 H 09/04/19 06:40 Resp 18 09/04/19 06:38 BP 138/79 09/04/19 06:40 Pulse Ox 95 09/03/19 05:47 Results & Data ([facility]UST) Current Inpatient Medications Current Inpatient Medications: Current Inpatient Medications Acetaminophen (Tylenol) 650 mg PO Q4H PRN PRN Reason: Headache or Minor Fever Stop: 10/03/19 05:41 Last Admin: 09/04/19 03:41 Dose: 650 mg Documented by: Al Hydrox/Mg Hydrox/Simethicone (Maalox) 30 ml PO Q4H PRN PRN Reason: GI Upset Stop: 10/03/19 05:41 Bismuth Subsalicylate (Kaopectate) 15 ml PO PRN PRN PRN Reason: Loose Stool Stop: 10/03/19 05:41 Hydroxyzine HCl (Vistaril) 50 mg PO HSZ PRN PRN Reason: Insomnia Stop: 10/03/19 05:41 Hydroxyzine HCl (Vistaril) 25 mg PO Q4H PRN PRN Reason: Anxiety Stop: 10/03/19 05:41 Levothyroxine Sodium (Synthroid) 75 mcg PO DAILYBB [facility] Stop: 10/03/19 07:59 Last Admin: 09/03/19 11:32 Dose: 75 mcg Documented by: [employer] [place] Carbonate (Eskalith) 450 mg PO BID [facility] Stop: 10/03/19 20:59 Last Admin: 09/03/19 21:30 Dose: 450 mg Documented by: Magnesium Hydroxide (Milk Of Magnesia) 30 ml PO DAILY PRN PRN Reason: Constipation Stop: 10/03/19 05:41 Miscellaneous (Remove Nicoderm Patch) 1 ea N/A DAILY@[id number] [facility] Stop: 10/04/19 08:58 Nicotine (Nicoderm Cq) 7 mg TD QAM [facility] Stop: 10/03/19 16:29 Last Admin: 09/03/19 17:12 Dose: 7 mg Documented by: Paliperidone (Invega) 6 mg PO DAILY [facility] Stop: 10/03/19 08:59 Last Admin: 09/03/19 11:33 Dose: 6 mg Documented by: Paliperidone Palmitate (Invega Sustenna) 234 mg IM Q4WK [facility] Stop: 10/17/19 08:59 Simvastatin (Zocor) 10 mg PO HS [facility] Stop: 10/03/19 21:59 Last Admin: 09/03/19 21:30 Dose: 10 mg Documented by: Sodium Chloride (Assumption Nasal) 1 - 2 sprays NA PRN PRN PRN Reason: Nasal Dryness/Congestion Stop: 10/03/19 05:41 Mental Health & Subst Abuse Tx Psychiatrist Name of Psychiatrist: Jackelin Psychiatrist's Date of Appointment with Psychiatrist: 09/14/19 Time of Appointment with Psychiatrist: 11:00 a.m. [facility] [id number] [facility] [id number] [facility] Name of Therapist: None Certified Medical Biller Name of Certified Medical Biller: [facility] Lizzy Pandey Phone Number for Certified Medical Biller: [phone] Post Discharge Appointments Primary Care Physician Name Of Family Doctor: [facility] Primary Care Provider Appointment Comment: [phone], [address], [place] [address]
[2019-09-04] MEDS: LEVOTHYROXINE SODIUM 75 MCG TABLET PO SCH (07:52)
[2019-09-04] MEDS: NICOTINE 7 MG/24 HR TDSY TD SCH (07:52)
[2019-09-04] MEDS: LITHIUM CARBONATE 450 MG TABCR PO SCH ×2 (07:53→20:27)
[2019-09-04] MEDS: PALIPERIDONE 3 MG TABCR PO SCH (07:54)
[2019-09-04] MEDS ORDERED: LEVOTHYROXINE SODIUM 75 MCG TABLET PO SCH (08:00)
[2019-09-04] MEDS ORDERED: PALIPERIDONE 3 MG TABCR PO SCH (09:00)
[2019-09-04] MEDS: SIMVASTATIN 10 MG TAB PO SCH (20:28)
[2019-09-05] MEDS: LITHIUM CARBONATE 450 MG TABCR PO SCH ×2 (08:29→20:31)
[2019-09-05] MEDS: LEVOTHYROXINE SODIUM 75 MCG TABLET PO SCH (08:29)
[2019-09-05] MEDS: PALIPERIDONE 3 MG TABCR PO SCH (08:29)
[2019-09-05] MEDS: NICOTINE 7 MG/24 HR TDSY TD SCH (08:29)
[2019-09-05] MEDS ORDERED: TUBERCULIN SKIN TEST 5 TU in SYRINGE 0 ML ID ONE (09:00)
--- NOTE | 2019-09-05 09:11 | Psychiatric Progress Note ---
Date of Service September 05, 2019 Impression / Recommendations Impression 63-year-old [place]yanese female with schizoaffective disorder bipolar type admitted on a 302 commitment 4 days after being discharged from this unit on 08/29 after a 27-day hospitalization. She was discharged on a 304 IOC, and return to the ER later that same day, after police were called due to bizarre behavior at a local grocery store, but was again discharged. Readmitted with psychotic symptoms including paranoia, delusions of persecution (that family and people at the halfway were trying to poison/harm her), refusing to eat with hypokalemia, homelessness, delusions that she owns a home, and inability to provide for her own basic needs. Additionally, family members who petitioned reported she made suicidal statements and walked into traffic, and reported delusions that her son had stabbed her in her intestines were hanging out. They also reported she had been noncompliant with oral psychotropic medications, and although her case specialist assisted her to fill these on the day of discharge, she did not bring them into the hospital with her and says she does not know where they are. Inpatient treatment is medically necessary due to the severity of her symptoms and risk for suicide if discharged. She has also repeatedly demonstrated an inability to effectively care for herself outside of a structured setting. (1) Schizoaffective disorder, bipolar type: 09/03/19 -The patient has been admitted to the locked, secured behavioral health unit and has been placed in special observation room. She is also being monitored with close observations and every 15-minute direct observation. When more stable she will be actively encouraged to participate in individual, group, and activity therapies. We will also attempt to involve the family if the patient permits us to and if they agree. - Resuming medications as was rx'd at time of discharge on 08/29 including po Invega, lithium, and Sustenna. 09/03 -continue current medications, patient is taking them. -File for 306 conversion hearing to be held 09/06/2019. She will likely need referral to the [facility] due to the need for long-term inpatient treatment. -Reviewed FLP and FG from recent hospitalization 08/07/2019: Cholesterol 221, glucose 109, other values within normal limits. -Attempt to involve family is able; son-in-law Poli is petitioner and was involved in hospitalization so we will ask staff to contact him for collateral information and to determine the family's ability to assist with discharge planning and housing. She has very limited supports in the community and if they are unable to assist her with housing and care, she will likely require long-term hospitalization. -Continue private room for psychosis. 09/04 - Continue current medication regimen - patient has been compliant with medications in this structured environment - 306 conversion hearing scheduled for 09/05 - Meeting with case specialist today to discuss treatment options and continue attempts to build rapport - Referral to [facility] is being recommended at this time has patient has repeatedly demonstrated an inability to care for self and provide for basic needs without the support of a structured psychiatric setting. - EKG (WNL). PPD was refused by patient - CXR ordered (2) Noncompliance with medication regimen: 09/02 - Unable to clarify if pt has been taking her medications regularly in the days since discharge. She at first indicated that she was not then indicated the medications arein a bag of hers but did not indicate actually taking them. The patient also claims to not recall the names of any of her medications and reports that she does not have the conditions for which her known medications are clearly intended. Possible cognitive impairments. might be impacting medication compliance. language impairments with pt not speaking Portuguese impacting compliance concerns. -The patient's underlying psychiatric condition will be actively treated. It is hoped that with treatment we will be able to improve medication compliance and also address aspects that impact compliance and improve this with appropriate interventions. CANTOR form of Invega to be continued at this time, next dose not due for another 2 weeks. Pt took meds this morning that were offered to her but given her extensive non compliance prior to, during and seeming after recent admission and lack of insight to her dx and presentation and indicating that recent hospitalization was quite helpful for her and her indicating wanting to continue her medications as was rx' at end of recent [facility] admission and were instructed to take at that discharge. I am in favor of medication over objection if pt objects to taking her medication during the course of this admission or if it is determined that pt is checking or not actually taking her medications. (3) Homeless: 09/03/19 -In the past, the patient has lived with family members. However, this is clearly not an option at the present time. The context is that the patient reportedly was in custodial for approximately a year because of her making terroristic threats against the family. While it does seem clear that the family wants to help protect her, they are unable to safely provide halfway. Given the patient's history of neglect of self-care, medication nonadherence, and possible cognitive deficits we are going to investigate structured residential programs as part of our discharge planning. 09/03 -patient has consistently refused assistance with housing, insisting that she has a house in [place], although has not been able to provide an address and her family states this is not true. (4) Involuntary commitment: 09/03 -patient on a 304 IOC, readmitted on a 302. We will file for a 306 conversion hearing. 09/04 - 306 hearing scheduled for 09/05; anticipate referral to [facility] (5) Nicotine abuse: 09/02 - Nicotine Patch 7mg topical daily resumed, and smoking cessation to be done when pt is in more apposite mental state to do so Inventory Assets Strengths: concerned family members, pleasant on approach Needs: stable housing, improved compliance to medication and treatment plan Risk Factors Assessment Male: No : No Do You Have Access To A Gun?: No Health Problems: No Mental Health Diagnoses: Yes Substance Use Disorders: No Previous Attempt: Yes (Per family, patient denies) Previous Psychiatric Hospitalization: Yes Hopelessness: No Smoker: Yes Protective Factors Assessment : No Responsible for Young Children: No Employed: No Stable Relationships: No Supportive Family: No Good Rapport with Provider: No Interval History Identifying Information ANDREW CYR is a 63-year-old F who currently is homeless in [facility], has a history of schizoaffective disorder, bipolar type, and was admitted on 09/03/19 05:42 on a 302 involuntary commitment for psychosis, suicidal ideation, inability to provide for basic needs, and medication noncompliance. Chief Complaint "Good. Thanks." Review of Systems Notes Constitutional: denied Cardiovascular: denied Respiratory: denied Neurological: denied Psychiatric: denies symptoms other than stated above Total of at least 10 systems reviewed, pertinent positives as above and in HPI. Sleep Information Total Hours of Sleep: 7 Sleep Comments: pt on q-15 minute checks Meal Information Percent Meal Consumed - Breakfast: 100 Percent Meal Consumed - Lunch: 100 Percent Meal Consumed - Dinner: 100 Nutrition Comment: pt. allowed to sleep Subjective Subjective Patient was seen & assessed and interval progress reviewed with nursing and social work. Staff report the patient has been cooperative with staff and peers, but has been largely isolative to her room. She continues to be observed to be speaking to herself throughout the day. Pt is attending to ADLs in the structured environment. Pt was seen today to assess progress since admission. Conversation was held with assistance from [facility] interpretive services - Debbie #[id number]. Pt initially indicates that she is "Good. Thanks." She states she is not having medication side effects or other physical concerns. Pt was asked if she believes the medications have been helpful for thought clarity or to improve mood, to which she replies "I've always had my thoughts clear, but I do believe the medications are helping. I feel fine." Pt was asked her understanding of what brought her back to the hospital, to which she states " because I had to come." When asked to provide more details, she responds " because Lizzy did not find the address." Pt was asked to explain the connection between these two statements and responded with "I stayed over a some friends." This provider explained the PPD testing procedure and asked if patient had had these tests before, to which she stated she had. It was explained that these tests are often repeated during long hospitalizations, frequent travel, or incarcerations. Pt interjected "I've been to custodial 10 times for a lie. Finally they found me innocent." Pt was asked if she would be willing to repeat the PPD testing, to which she stated "no." When asked the reason for her refusal, patient becomes more animated and shares that she had one done recently and there were no issues and she does not feel she needs another at this time. This provider explained that due to extended hospitalization, we are recommending a repeated PPD, which she again refused. Pt arose from her seat on the edge of the bed and began walking toward her bathroom. Pt abruptly stated " I'm tired of listening to you talk, nurse. I'm done. No more." CXR was ordered for today as patient tolerated EKG without incident, but is refusing PPD. Physical Exam Psychiatric Orientation: alert initially superficially cooperative, then abruptly became irritable and ended conversation Apperance: appropriately dressed (casually, in a t-shirt and scrub pants), appropriately groomed and appeared stated age Eye Contact: + fair eye contact Motor Behavior: no abnormal motor movements (observed walking around room and sitting on edge of her bed ) Speech: normal rate/rhythm/volume of speech (volume increasing as she becomes more irritable) Affect: + labile affect (varying between pleasant, blunted, and then irritable) Mood: + irritable mood (initially cooperative and pleasant, but then becomes abruptly irritable ) Thought Process: + tangential thought process and + looseness of associations; + thought process not linear or logical Thought Content: + paranoid and + delusions Hallucinations: observed at times to be talking to herself, but does not verbalize having hallucinations Cognition: attention grossly intact and language grossly intact Insight: + severely impaired insight Judgement: + severely impaired judgement Vital Signs (Past 24 Hours) Last Vital Signs Temp 36.8 C 09/05/19 06:35 Pulse 84 09/05/19 06:36 Resp 18 09/05/19 06:35 BP 145/82 H 09/05/19 06:36 Pulse Ox 95 09/03/19 05:47 Results & Data ([facility]) Current Inpatient Medications Current Inpatient Medications: Current Inpatient Medications Acetaminophen (Tylenol) 650 mg PO Q4H PRN PRN Reason: Headache or Minor Fever Stop: 10/03/19 05:41 Last Admin: 09/04/19 03:41 Dose: 650 mg Documented by: Al Hydrox/Mg Hydrox/Simethicone (Maalox) 30 ml PO Q4H PRN PRN Reason: GI Upset Stop: 10/03/19 05:41 Bismuth Subsalicylate (Kaopectate) 15 ml PO PRN PRN PRN Reason: Loose Stool Stop: 10/03/19 05:41 Docusate Sodium (Colace) 100 mg PO BID CLARISA Stop: 10/05/19 08:59 Hydroxyzine HCl (Vistaril) 50 mg PO HSZ PRN PRN Reason: Insomnia Stop: 10/03/19 05:41 Hydroxyzine HCl (Vistaril) 25 mg PO Q4H PRN PRN Reason: Anxiety Stop: 10/03/19 05:41 Levothyroxine Sodium (Synthroid) 75 mcg PO DAILYBB CLARISA Stop: 10/03/19 07:59 Last Admin: 09/05/19 08:29 Dose: 75 mcg Documented by: [place] Carbonate (Eskalith) 450 mg PO BID CLARISA Stop: 10/03/19 20:59 Last Admin: 09/05/19 08:29 Dose: 450 mg Documented by: Magnesium Hydroxide (Milk Of Magnesia) 30 ml PO DAILY PRN PRN Reason: Constipation Stop: 10/03/19 05:41 Miscellaneous (Remove Nicoderm Patch) 1 ea N/A DAILY@0859 CLARISA Stop: 10/04/19 08:58 Last Admin: 09/05/19 08:33 Dose: Not Given Documented by: Miscellaneous (Ppd Check) 1 ea N/A Q48H ONE Stop: 09/07/19 09:01 Nicotine (Nicoderm Cq) 7 mg TD QAM CLARISA Stop: 10/03/19 16:29 Last Admin: 09/05/19 08:29 Dose: 7 mg Documented by: Paliperidone (Invega) 6 mg PO DAILY CLARISA Stop: 10/03/19 08:59 Last Admin: 09/05/19 08:29 Dose: 6 mg Documented by: Paliperidone Palmitate (Invega Sustenna) 234 mg IM Q4WK CLARISA Stop: 10/17/19 08:59 Simvastatin (Zocor) 10 mg PO HS CLARISA Stop: 10/03/19 21:59 Last Admin: 09/04/19 20:28 Dose: 10 mg Documented by: Sodium Chloride ([place] Nasal) 1 - 2 sprays NA PRN PRN PRN Reason: Nasal Dryness/Congestion Stop: 10/03/19 05:41 Mental Health & Subst Abuse Tx Psychiatrist Name of Psychiatrist: Jackelin Psychiatrist's Date of Appointment with Psychiatrist: 09/14/19 Time of Appointment with Psychiatrist: 11:00 a.m. Psychiatric Appointment Comment: [id number] [place] [address] Therapist Name of Therapist: None [employer] Director Name of [employer] Director: [employer] - Lizzy Pandey Phone Number for [employer] Director: [phone] Post Discharge Appointments Primary Care Physician Name Of Family Doctor: [facility] Primary Care Provider Appointment Comment: [id number], [address], [place] [address]
[2019-09-05] MEDS: DOCUSATE SODIUM 100 MG CAP PO SCH ×2 (09:12→20:29)
--- NOTE | 2019-09-05 11:45 | XRay Report ---
SINGLE VIEW CHEST CLINICAL HISTORY: [facility] referral. FINDINGS: An AP, portable, upright chest radiograph is compared to study dated 07/28/2019. The cardiome diastinal silhouette is unremarkable. Chronic interstitial thickening is similar to previous. There i s mild bibasilar atelectasis. The lungs and pleural spaces are otherwise clear. No pneumothorax is se en. The skeletal structures are osteopenic. The bony thorax is grossly intact. IMPRESSION: No active disease in the chest. ACT 112: Negative or not required by law. Electronically signed by: Ja Schaffer M.D. 09/05/2019 11:44 AM
--- NOTE | 2019-09-05 12:20 | Electrocardiogram Report ---
Test Reason : Blood Pressure : / mmHG Vent. Rate : 080 BPM Atrial Rate : 080 BPM P-R Int : 136 ms QRS Dur : 074 ms QT Int : 378 ms P-R-T Axes : 017 004 040 degrees QTc Int : 435 ms Normal sinus rhythm Normal ECG When compared with ECG of 28-JUL-2019 16:05, No significant change was found Confirmed by Chaparro Card ([id number] on 09/05/2019 12:19:39 PM Referred By: REFERRED SELF Confirmed By:Raúl Card
[2019-09-05] MEDS: SIMVASTATIN 10 MG TAB PO SCH (20:30)
--- NOTE | 2019-09-06 08:19 | Psychiatric Progress Note ---
Date of Service September 06, 2019 Impression / Recommendations Impression 63-year-old Samoan female with schizoaffective disorder bipolar type admitted on a 302 commitment 4 days after being discharged from this unit on 08/29 after a 27-day hospitalization. She was discharged on a 304 IOC, and return to the ER later that same day, after police were called due to bizarre behavior at a local grocery store, but was again discharged. Readmitted with psychotic symptoms including paranoia, delusions of persecution (that family and people at the snf were trying to poison/harm her), refusing to eat with hypokalemia, homelessness, delusions that she owns a home, and inability to provide for her own basic needs. Additionally, family members who petitioned reported she made suicidal statements and walked into traffic, and reported delusions that her son had stabbed her in her intestines were hanging out. They also reported she had been noncompliant with oral psychotropic medications, and although her caser assisted her to fill these on the day of discharge, she did not bring them into the hospital with her and says she does not know where they are. She is repeatedly demonstrated complete inability to provide for her own basic needs outside of the hospital, including health, welfare, snf, food, and safety. Inpatient treatment is medically necessary due to the severity of her symptoms and risk for suicide if discharged. She is now on a 304 involuntary commitment, and we are recommending long-term inpatient treatment at the [facility]. (1) Schizoaffective disorder, bipolar type: 09/03/19 -The patient has been admitted to the locked, secured behavioral health unit and has been placed in special observation room. She is also being monitored with close observations and every 15-minute direct observation. When more stable she will be actively encouraged to participate in individual, group, and activity therapies. We will also attempt to involve the family if the patient permits us to and if they agree. - Resuming medications as was rx'd at time of discharge on 08/29 including po Invega, lithium, and Sustenna. 09/03 -continue current medications, patient is taking them. -File for 306 conversion hearing to be held 09/06/2019. She will likely need referral to the [facility] due to the need for long-term inpatient treatment. -Reviewed FLP and FG from recent hospitalization 08/07/2019: Cholesterol 221, glucose 109, other values within normal limits. -Attempt to involve family is able; son-in-law Poli is petitioner and was involved in hospitalization so we will ask staff to contact him for collateral information and to determine the family's ability to assist with discharge planning and housing. She has very limited supports in the community and if they are unable to assist her with housing and care, she will likely require long-term hospitalization. -Continue private room for psychosis. 09/04 - Continue current medication regimen - patient has been compliant with me dications in this structured environment - 306 conversion hearing scheduled for 09/05 - Meeting with caser today to discuss treatment options and continue attempts to build rapport - Referral to [facility] is being recommended at this time has patient has repeatedly demonstrated an inability to care for self and provide for basic needs without the support of a structured psychiatric setting. - EKG (WNL). PPD was refused by patient - CXR ordered 09/05 -306 hearing held and patient converted to a 304 involuntary commitment. -Referred to [facility] for long-term inpatient treatment, as patient is severely ill and unable to provide for her own basic needs as a result of her mental illness, and treatment for 27 days on our acute unit was insufficient for successful transition to the community. She was at [facility] for 4 months within the past year, and did respond to treatment there, so [facility] for [facility]-term treatment of SPMI. -EKG and chest x-ray completed for state hospital referral. (2) Noncompliance with medication regimen: 09/02 - Unable to clarify if pt has been taking her medications regularly in the days since discharge. She at first indicated that she was not then indicated the medications arein a bag of hers but did not indicate actually taki ng them. The patient also claims to not recall the names of any of her medications and reports that she does not have the conditions for which her known medications are clearly intended. Possible cognitive impairments. might be impacting medication compliance. language impairments with pt not speaking Icelandic impacting compliance concerns. -The patient's underlying psychiatric condition will be actively treated. It is hoped that with treatment we will be able to improve medication compliance and also address aspects that impact compliance and improve this with appropriate interventions. CANTOR form of Invega to be continued at this time, next dose not due for another 2 weeks. Pt took meds this morning that were offered to her but given her extensive non compliance prior to, during and seeming after recent admission and lack of insight to her dx and presentation and indicating that recent hospitalization was quite helpful for her and her indicating wanting to continue her medications as was rx' at end of recent [facility] admission and were instructed to take at that discharge. I am in favor of medication over objection if pt objects to taking her medication during the course of this admission or if it is determined that pt is checking or not actually taking her medications. (3) Homeless: 09/03/19 -In the past, the patient has lived with family members. However, this is clearly not an option at the present time. The context is that the patient reportedly was in longterm for approximately a year because of her making terroristic threats against the family. While it does seem clear that the family wants to help protect her, they are unable to safely provide snf. Given the patient's history of neglect of self-care, medication nonadherence, and possible cognitive deficits we are going to investigate structured residential programs as part of our discharge planning. 09/03 -patient has consistently refused assistance with housing, insisting that she has a house in [place], although has not been able to provide an address and her family states this is not true. (4) Involuntary commitment: 09/03 -patient on a 304 IOC, readmitted on a 302. We will file for a 306 conversion hearing. 09/04 - 306 hearing scheduled for 09/05; anticipate referral to [facility]. 09/05 -306 conversion granted, now here on a 304 involuntary commitment. (5) Nicotine abuse: 09/02 - Nicotine Patch 7mg topical daily resumed, and smoking cessation to be done when pt is in more apposite mental state to do so Inventory Assets Strengths: concerned family members, pleasant on approach Needs: stable housing, improved compliance to medication and treatment plan Risk Factors Assessment Male: No : No Do You Have Access To A Gun?: No Health Problems: No Mental Health Diagnoses: Yes Substance Use Disorders: No Previous Attempt: Yes (Per family, patient denies) Previous Psychiatric Hospitalization: Yes Hopelessness: No Smoker: Yes Protective Factors Assessment : No Responsible for Young Children: No Employed: No Stable Relationships: No Supportive Family: No Good Rapport with Provider: No Interval History Identifying Information ANDREW CYR is a 63-year-old F who currently is homeless in [place], has a history of schizoaffective disorder, bipolar type, and was admitted on 09/03/19 05:42 on a 302 involuntary commitment for psychosis, suicidal ideation, inability to provide for basic needs, and medication noncompliance. Chief Complaint " Fine". Review of Systems Sleep Information Total Hours of Sleep: 8 Sleep Comments: pt on q-15 minute checks Meal Information Percent Meal Consumed - Breakfast: 100 Percent Meal Consumed - Lunch: 100 Percent Meal Consumed - Dinner: 100 Nutrition Comment: pt. allowed to sleep Subjective Subjective Patient was seen & assessed and interval progress reviewed with treatment team. Staff report she walked out of her meeting with Lizzy, her BCM. The county has been advised that we are recommending a [facility] referral. Her BCM has again tried to contact her son in law, Poli, but no family have yet returned phone calls. On my assessment, the patient was seen with certified court interpreter #[id number]. She states her mood is "fine," and insist that she is here in the hospital in order to get stomach surgery. Attempted to explain her involuntary commitment and that her 306 conversion hearing is scheduled for today, but she insisted that she was not here involuntarily and was not on a commitment. She ultimately declined to attend the hearing, and the petition was granted, so she is now here on a 304 involuntary commitment. Physical Exam Psychiatric Orientation: alert and cooperative Apperance: appropriately dressed, appropriately groomed and appeared stated age Eye Contact: + fair eye contact Motor Behavior: steady gait and station and no abnormal motor movements Speaks Kinyarwanda, loud at times when discussing commitment, arguing with the site interpreter. Affect: + labile affect; + mood not congruent with affect Affect initially euthymic, but became increasingly irritated and angry when discussing commitment status. Mood: + irritable mood "Fine." Thought Process: goal directed thought process Thought Content: + delusions Suicidal Thoughts: denies suicidal thoughts Homicidal Thoughts: denies homicidal thoughts Hallucinations: no auditory hallucinations Cognition: + recent memory not intact Insight: + severely impaired insight Judgement: + severely impaired judgement Vital Signs (Past 24 Hours) Last Vital Signs Temp 36.5 C 09/06/19 06:39 Pulse 102 H 09/06/19 06:39 Resp 20 09/06/19 06:39 BP 151/96 H 09/06/19 06:39 Pulse Ox 95 09/03/19 05:47 Results & Data ([facility]) Current Inpatient Medications Current Inpatient Medications: Current Inpatient Medications Acetaminophen (Tylenol) 650 mg PO Q4H PRN PRN Reason: Headache or Minor Fever Stop: 10/03/19 05:41 Last Admin: 09/04/19 03:41 Dose: 650 mg Documented by: Al Hydrox/Mg Hydrox/Simethicone (Maalox) 30 ml PO Q4H PRN PRN Reason: GI Upset Stop: 10/03/19 05:41 Bismuth Subsalicylate (Kaopectate) 15 ml PO PRN PRN PRN Reason: Loose Stool Stop: 10/03/19 05:41 Docusate Sodium (Colace) 100 mg PO BID [facility] Stop: 10/05/19 08:59 Last Admin: 09/05/19 20:29 Dose: 100 mg Documented by: Hydroxyzine HCl (Vistaril) 50 mg PO HSZ PRN PRN Reason: Insomnia Stop: 10/03/19 05:41 Hydroxyzine HCl (Vistaril) 25 mg PO Q4H PRN PRN Reason: Anxiety Stop: 10/03/19 05:41 Levothyroxine [facility]) [facility] Stop: 10/03/19 07:59 Last Admin: 09/05/19 08:29 Dose: 75 mcg Documented by: [place] Carbonate (Eskalith) 450 mg PO BID [facility] Stop: 10/03/19 20:59 Last Admin: 09/05/19 20:31 Dose: 450 mg Documented by: Magnesium Hydroxide (Milk Of Magnesia) 30 ml PO DAILY PRN PRN Reason: Constipation Stop: 10/03/19 05:41 Miscellaneous (Remove Nicoderm Patch) 1 ea N/A DAILY@[id number] [facility] Stop: 10/04/19 08:58 Last Admin: 09/05/19 08:33 Dose: Not Given Documented by: Nicotine (Nicoderm Cq) 7 mg TD QAM [facility] Stop: 10/03/19 16:29 Last Admin: 09/05/19 08:29 Dose: 7 mg Documented by: Paliperidone (Invega) 6 mg PO DAILY [facility] Stop: 10/03/19 08:59 Last Admin: 09/05/19 08:29 Dose: 6 mg Documented by: Paliperidone Palmitate (Invega Sustenna) 234 mg IM Q4WK [facility] Stop: 10/17/19 08:59 Simvastatin (Zocor) 10 mg PO HS [facility] Stop: 10/03/19 21:59 Last Admin: 09/05/19 20:30 Dose: 10 mg Documented by: Sodium Chloride ([place] Nasal) 1 - 2 sprays NA PRN PRN PRN Reason: Nasal Dryness/Congestion Stop: 10/03/19 05:41 Mental Health & Subst Abuse Tx Psychiatrist Name of Psychiatrist: Jackelin Psychiatrist's Date of Appointment with Psychiatrist: 09/14/19 Time of Appointment with Psychiatrist: 11:00 a.m. Psychiatric Appointment Comment[facility] [phone] [id number] Therapist Name of Therapist: None Creative/Art Director Name of Creative/Art Director: [facility] - Lizzy Pandey Phone Number for Creative/Art Director: [phone] Post Discharge Appointments Primary Care Physician Name Of Family Doctor: [facility] Primary Care Provider Appointment Comment: [phone] [facility], [address], [place] [address]
[2019-09-06] MEDS: PALIPERIDONE 3 MG TABCR PO SCH (08:20)
[2019-09-06] MEDS: LITHIUM CARBONATE 450 MG TABCR PO SCH ×2 (08:20→21:16)
[2019-09-06] MEDS: LEVOTHYROXINE SODIUM 75 MCG TABLET PO SCH (08:20)
[2019-09-06] MEDS: DOCUSATE SODIUM 100 MG CAP PO SCH ×2 (08:21→21:15)
[2019-09-06] MEDS: NICOTINE 7 MG/24 HR TDSY TD SCH (08:26)
[2019-09-06] MEDS: SIMVASTATIN 10 MG TAB PO SCH (21:16)
[2019-09-07] MEDS: PALIPERIDONE 3 MG TABCR PO SCH (08:32)
[2019-09-07] MEDS: LEVOTHYROXINE SODIUM 75 MCG TABLET PO SCH (08:32)
[2019-09-07] MEDS: DOCUSATE SODIUM 100 MG CAP PO SCH ×2 (08:33→21:01)
[2019-09-07] MEDS: NICOTINE 7 MG/24 HR TDSY TD SCH (08:33)
[2019-09-07] MEDS: LITHIUM CARBONATE 450 MG TABCR PO SCH ×2 (08:33→21:01)
[2019-09-07] MEDS ORDERED: PPD CHECK ONE (09:00)
--- NOTE | 2019-09-07 12:28 | Psychiatric Progress Note ---
Date of Service September 07, 2019 Impression / Recommendations Impression 63-year-old Citizen [place] female with schizoaffective disorder bipolar type admitted on a 302 commitment 4 days after being discharged from this unit on 08/29 after a 27-day hospitalization. She was discharged on a 304 IOC, and return to the ER later that same day, after police were called due to bizarre behavior at a local grocery store, but was again discharged. Readmitted with psychotic symptoms including paranoia, delusions of persecution (that family and people at the residential were trying to poison/harm her), refusing to eat with hypokalemia, homelessness, delusions that she owns a home, and inability to provide for her own basic needs. Additionally, family members who petitioned reported she made suicidal statements and walked into traffic, and reported delusions that her son had stabbed her in her intestines were hanging out. They also reported she had been noncompliant with oral psychotropic medications, and although her returned case inspector assisted her to fill these on the day of discharge, she did not bring them into the hospital with her and says she does not know where they are. She is repeatedly demonstrated complete inability to provide for her own basic needs outside of the hospital, including health, welfare, residential, food, and safety. Inpatient treatment is medically necessary due to the severity of her symptoms and risk for suicide if discharged. She is now on a 304 involuntary commitment, and we are recommending long-term inpatient treatment at the [facility]. (1) Schizoaffective disorder, bipolar type: 09/03/19 -The patient has been admitted to the locked, secured behavioral health unit and has been placed in special observation room. She is also being monitored with close observations and every 15-minute direct observation. When more stable she will be actively encouraged to participate in individual, group, and activity therapies. We will also attempt to involve the family if the patient permits us to and if they agree. - Resuming medications as was rx'd at time of discharge on 08/29 including po Invega, lithium, and Sustenna. 09/03 -continue current medications, patient is taking them. -File for 306 conversion hearing to be held 09/06/2019. She will likely need referral to the [facility] due to the need for long-term inpatient treatment. -Reviewed FLP and FG from recent hospitalization 08/07/2019: Cholesterol 221, glucose 109, other values within normal limits. -Attempt to involve family is able; son-in-law Poli is petitioner and was involved in hospitalization so we will ask staff to contact him for collateral information and to determine the family's ability to assist with discharge planning and housing. She has very limited supports in the community and if they are unable to assist her with housing and care, she will likely require long-term hospitalization. -Continue private room for psychosis. 09/04 - Continue current medication regimen - patient has been compliant with me dications in this structured environment - 306 conversion hearing scheduled for 09/05 - Meeting with returned case inspector today to discuss treatment options and continue attempts to build rapport - Referral to [facility] is being recommended at this time has patient has repeatedly demonstrated an inability to care for self and provide for basic needs without the support of a structured psychiatric setting. - EKG (WNL). PPD was refused by patient - CXR ordered 09/05 -306 hearing held and patient converted to a 304 involuntary commitment. -Referred to [facility] for long-term inpatient treatment, as patient is severely ill and unable to provide for her own basic needs as a result of her mental illness, and treatment for 27 days on our acute unit was insufficient for successful transition to the community. She was at [facility] for 4 months within the past year, and did respond to treatment there, so returned to the [facility] as recommended for long-term treatment of SPMI. -EKG and chest x-ray completed for state hospital referral. 09/06 - Continue current medication regimen - Referral to [facility] is being prepared, approval was reportedly received from the county - Ongoing attempt to build rapport with psychiatric returned case inspector (2) Noncompliance with medication regimen: 09/02 - Unable to clarify if pt has been taking her medications regularly in the days since discharge. She at first indicated that she was not then indicated the medications arein a bag of hers but did not indicate actually taking them. The patient also claims to not recall the names of any of her medications and reports that she does not have the conditions for which her known medications are clearly intended. Possible cognitive impairments. might be impacting medication compliance. language impairments with pt not speaking Kazakh impacting compliance concerns. -The patient's underlying psychiatric condition will be actively treated. It is hoped that with treatment we will be able to improve medication compliance and also address aspects that impact compliance and improve this with appropriate interventions. CANTOR form of Invega to be continued at this time, next dose not due for another 2 weeks. Pt took meds this morning that were offered to her but given her extensive non compliance prior to, during and seeming after recent admission and lack of insight to her dx and presentation and indicating that recent hospitalization was quite helpful for her and her indicating wanting to continue her medications as was rx' at end of recent [facility] admission and were instructed to take at that discharge. I am in favor of medication over objection if pt objects to taking her medication during the course of this admission or if it is determined that pt is checking or not actually taking her medications. (3) Homeless: 09/03/19 -In the past, the patient has lived with family members. However, this is clearly not an option at the present time. The context is that the patient reportedly was in group home for approximately a year because of her making terroristic threats against the family. While it does seem clear that the family wants to help protect her, they are unable to safely provide residential. Given the patient's history of neglect of self-care, medication nonadherence, and possible cognitive deficits we are going to investigate structured residential programs as part of our discharge planning. 09/03 -patient has consistently refused assistance with housing, insisting that she has a house in [place], although has not been able to provide an address and her family states this is not true. 09/06 - Patient's grandson called unit yesterday to provide additional information, stating the patient has been homeless for quite some time and there is no valid address for the patient (4) Involuntary commitment: 09/03 -patient on a 304 IOC, readmitted on a 302. We will file for a 306 conversion hearing. 09/04 - 306 hearing scheduled for 09/05; anticipate referral to [facility]. 09/05 -306 conversion granted, now here on a 304 involuntary commitment. (5) Nicotine abuse: 09/02 - Nicotine Patch 7mg topical daily resumed, and smoking cessation to be done when pt is in more apposite mental state to do so Inventory Assets Strengths: concerned family members, pleasant on approach Needs: stable housing, improved compliance to medication and treatment plan Risk Factors Assessment Male: No : No Do You Have Access To A Gun?: No Health Problems: No Mental Health Diagnoses: Yes Substance Use Disorders: No Previous Attempt: Yes (Per family, patient denies) Previous Psychiatric Hospitalization: Yes Hopelessness: No Smoker: Yes Protective Factors Assessment : No Responsible for Young Children: No Employed: No Stable Relationships: No Supportive Family: No Good Rapport with Provider: No Interval History Identifying Information ANDREW CYR is a 63-year-old F who currently is homeless in [facility], has a history of schizoaffective disorder, bipolar type, and was admitted on 09/03/19 05:42 on a 302 involuntary commitment for psychosis, suicidal ideation, inability to provide for basic needs, and medication noncompliance. Chief Complaint "Good." Review of Systems Notes Constitutional: denies fatigue or other constitutional symptoms Cardiovascular: denied Respiratory: denied Gastrointestinal: reports nausea, states she vomited this morning Neurological: denied Psychiatric: denies symptoms other than stated above Total of at least 10 systems reviewed, pertinent positives as above and in HPI. Sleep Information Total Hours of Sleep: 4.75 Sleep Comments: awake a few times. requested marc zbigniew and milk to drink. overheard talking out loud in her bedroom in angry or tearful tones. noted episoded of coughing with phlem production when awake Meal Information Percent Meal Consumed - Breakfast: 100 Percent Meal Consumed - Lunch: 100 Percent Meal Consumed - Dinner: 100 Nutrition Comment: pt. allowed to sleep Subjective Subjective Patient was seen & assessed and interval progress reviewed with nursing and social work. Staff report the patient had interrupted sleep last evening, and did have increased irritability last evening. She was reported labile overnight and was observed to be responding to internal stimuli. 306 hearing held yesterday, involuntary commitment converted back to inpatient. Pt was seen today to assess progress since admission. [facility] interpret[facility] service was utilized to allow for communication in patient's agdaag[place] language - Elizabeth #[id number]. Pt states she is feeling "good" today. She was asked if she had been feeling more tired today, as she was observed to be in bed more often today. Pt states she is "no more tired." Pt was asked how she feels her hospitalization as been going, and states "just regular." She initially denied any side effects, but then states "I want to vomit only." Pt tells this provider that she did vomit on one occasion earlier this morning. She declines medication to assist with nausea when offered, stating "I'm fine." This provider continued attempts to engage the patient in conversation; however, she states "I do not care to keep talking. No more." Encounter was ended at that time. A second encounter was initiated with the patient after she presented to the nurses station, believed to be asking about when she could leave and updates on her surgery (computer applications engineer not utilized, but staff member can recognize some Greek). [employer] interpretive services were again utilized to complete conversation - Lila #[id number]. This provider inquired if patient's questions were related to her reports of nausea, and she stated "well it already went away. I don't have time for this. I need to leave, they are going to do surgery." Pt proceeded to inform this provider that she is having surgery on her stomach, but is initially not sure why. She is later able to state that she believes "Dr. Crump(?)" is performing the surgery on a "bump" or "hernia." This provider did ask follow-up questions to assess if there was any acute concern at this time. She denied abdominal pain or cramping. She also denied any issues related to nutritional intake. She admits to having to strain a bit more to have a bowel movement, but has been utilizing prn "magnesia milk." In discussing these symptoms, this provider used the word 'stool', which seemed to upset the patient. Pt became irritable and reported "stool is what an animal does - fecal matter is what humans do." Insurance Loss Control Surveyor offered insight that this is not necessarily a cultural idea, and is likely unique to the patient. Pt was informed that there is no plan for a surgery to be performed, and she began to walk away from this provider stating "that is not what I needed to hear. I'm finished." Physical Exam Psychiatric Orientation: alert and + guarded Apperance: appropriately dressed (casually, in scrub pants and t-shirt) Eye Contact: + fair eye contact Motor Behavior: steady gait and station and no abnormal motor movements Speech: normal rate/rhythm/volume of speech (irritable tone) Affect: + irritable affect Thought Process: goal directed thought process Thought Content: + delusions Hallucinations: no auditory hallucinations and no visual hallucinations Patient denied experiencing hallucinations, but is observed to be responding to internal stimuli intermittently Cognition: language grossly intact Insight: + severely impaired insight Judgement: + severely impaired judgement Vital Signs (Past 24 Hours) Last Vital Signs Temp 37.0 C 09/07/19 06:00 Pulse 98 H 09/07/19 06:29 Resp 19 09/07/19 06:00 BP 153/85 H 09/07/19 06:29 Pulse Ox 95 09/03/19 05:47 Results & Data ([facility]) Current Inpatient Medications Current Inpatient Medications: Current Inpatient Medications Acetaminophen (Tylenol) 650 mg PO Q4H PRN PRN Reason: Headache or Minor Fever Stop: 10/03/19 05:41 Last Admin: 09/04/19 03:41 Dose: 650 mg Documented by: Al Hydrox/Mg Hydrox/Simethicone (Maalox) 30 ml PO Q4H PRN PRN Reason: GI Upset Stop: 10/03/19 05:41 Bismuth Subsalicylate (Kaopectate) 15 ml PO PRN PRN PRN Reason: Loose Stool Stop: 10/03/19 05:41 Docusate Sodium (Colace) 100 mg PO BID [facility] Stop: 10/05/19 08:59 Last Admin: 09/07/19 08:33 Dose: 100 mg Documented by: Hydroxyzine HCl (Vistaril) 50 mg PO HSZ PRN PRN Reason: Insomnia Stop: 10/03/19 05:41 Hydroxyzine HCl (Vistaril) 25 mg PO Q4H PRN PRN Reason: Anxiety Stop: 10/03/19 05:41 Levothyroxine Sodium (Synthroid) 75 mcg PO DAILYBB [facility] Stop: 10/03/19 07:59 Last Admin: 09/07/19 08:32 Dose: 75 mcg Documented by: [place] Carbonate (Eskalith) 450 mg PO BID [facility] Stop: 10/03/19 20:59 Last Admin: 09/07/19 08:33 Dose: 450 mg Documented by: Magnesium Hydroxide (Milk Of Magnesia) 30 ml PO DAILY PRN PRN Reason: Constipation Stop: 10/03/19 05:41 Miscellaneous (Remove Nicoderm Patch) 1 ea N/A DAILY@[id number] [facility] Stop: 10/04/19 08:58 Last Admin: 09/07/19 08:47 Dose: Not Given Documented by: Nicotine (Nicoderm Cq) 7 mg TD QAM [facility] Stop: 10/03/19 16:29 Last Admin: 09/07/19 08:33 Dose: 7 mg Documented by: Paliperidone (Invega) 6 mg PO DAILY [facility] Stop: 10/03/19 08:59 Last Admin: 09/07/19 08:32 Dose: 6 mg Documented by: Paliperidone Palmitate (Invega Sustenna) 234 mg IM Q4WK [facility] Stop: 10/17/19 08:59 Simvastatin (Zocor) 10 mg PO HS [facility] Stop: 10/03/19 21:59 Last Admin: 09/06/19 21:16 Dose: 10 mg Documented by: Sodium Chloride ([place] Nasal) 1 - 2 sprays NA PRN PRN PRN Reason: Nasal Dryness/Congestion Stop: 10/03/19 05:41 Mental Health & Subst Abuse Tx Psychiatrist Name of Psychiatrist: Jackelin Psychiatrist's Date of Appointment with Psychiatrist: 09/14/19 Time of Appointment with Psychiatrist: 11:00 a.m. Psychiatric Appointment Comment: [id number] [place] [address] Therapist Name of Therapist: None Engine Repair Supervisor Name of Engine Repair Supervisor: Base Service Unit - Lizzy Pandey Phone Number for Engine Repair Supervisor: [phone] Post Discharge Appointments Primary Care Physician Name Of Family Doctor: [facility] Primary Care Provider Appointment Comment: [id number], [address], [place] [address]
[2019-09-07] MEDS: SIMVASTATIN 10 MG TAB PO SCH (21:01)
[2019-09-08] MEDS: LEVOTHYROXINE SODIUM 75 MCG TABLET PO SCH (08:19)
[2019-09-08] MEDS: DOCUSATE SODIUM 100 MG CAP PO SCH ×2 (08:20→20:46)
[2019-09-08] MEDS: PALIPERIDONE 3 MG TABCR PO SCH (08:20)
[2019-09-08] MEDS: LITHIUM CARBONATE 450 MG TABCR PO SCH ×2 (08:20→20:45)
[2019-09-08] MEDS: NICOTINE 7 MG/24 HR TDSY TD SCH (08:51)
--- NOTE | 2019-09-08 09:09 | Psychiatric Progress Note ---
Date of Service September 08, 2019 Impression / Recommendations Impression 63-year-old [place] female with schizoaffective disorder bipolar type admitted on a 302 commitment 4 days after being discharged from this unit on 08/29 after a 27-day hospitalization. She was discharged on a 304 IOC, and return to the ER later that same day, after police were called due to bizarre behavior at a local grocery store, but was again discharged. Readmitted with psychotic symptoms including paranoia, delusions of persecution (that family and people at the mcc were trying to poison/harm her), refusing to eat with hypokalemia, homelessness, delusions that she owns a home, and inability to provide for her own basic needs. Additionally, family members who petitioned reported she made suicidal statements and walked into traffic, and reported delusions that her son had stabbed her in her intestines were hanging out. They also reported she had been noncompliant with oral psychotropic medications, and although her heel caser assisted her to fill these on the day of discharge, she did not bring them into the hospital with her and says she does not know where they are. She is repeatedly demonstrated complete inability to provide for her own basic needs outside of the hospital, including health, welfare, mcc, food, and safety. Inpatient treatment is medically necessary due to the severity of her symptoms and risk for suicide if discharged. She is now on a 304 involuntary commitment, and we are recommending long-term inpatient treatment at the [facility]. Referral packet was sent for review on 09/07/2019. (1) Schizoaffective disorder, bipolar type: 09/03/19 -The patient has been admitted to the locked, secured behavioral health unit and has been placed in special observation room. She is also being monitored with close observations and every 15-minute direct observation. When more stable she will be actively encouraged to participate in individual, group, and activity therapies. We will also attempt to involve the family if the patient permits us to and if they agree. - Resuming medications as was rx'd at time of discharge on 08/29 including po Invega, lithium, and Sustenna. 09/03 -continue current medications, patient is taking them. -File for 306 conversion hearing to be held 09/06/2019. She will likely need referral to the [facility] due to the need for long-term inpatient treatment. -Reviewed FLP and FG from recent hospitalization 08/07/2019: Cholesterol 221, glucose 109, other values within normal limits. -Attempt to involve family is able; son-in-law Poli is petitioner and was involved in hospitalization so we will ask staff to contact him for collateral information and to determine the family's ability to assist with discharge planning and housing. She has very limited supports in the community and if they are unable to assist her with housing and care, she will likely require long-term hospitalization. -Continue private room for psychosis. 09/04 - Continue current medication regimen - patient has been compliant with medications in this structured environment - 306 conversion hearing scheduled for 09/05 - Meeting with heel caser today to discuss treatment options and continue attempts to build rapport - Referral to [facility] is being recommended at this time has patient has repeatedly demonstrated an inability to care for self and provide for basic needs without the support of a structured psychiatric setting. - EKG (WNL). PPD was refused by patient - CXR ordered 09/05 -306 hearing held and patient converted to a 304 involuntary commitment. -Referred to [facility] for long-term inpatient treatment, as patient is severely ill and unable to provide for her own basic needs as a result of her mental illness, and treatment for 27 days on our acute unit was insufficient for successful transition to the community. She was at [facility] for 4 months within the past year, and did respond to treatment there, so [facility] as recommended for long-term treatment of SPMI. -EKG and chest x-ray completed for state hospital referral. 09/06 - Continue current medication regimen - Referral to [facility] is being prepared, approval was reportedly received from the county - Ongoing attempt to build rapport with psychiatric heel caser 09/07 - Continue current medication regimen - Referral sent to [facility] on 09/07/2019 for recommended long- term psychiatric hospitalization based on chronic medication/treatment non- compliance and repeated demonstration of inability to care for self outside of a structured psychiatric setting. - Pt was informed of [facility] referral today during encounter (2) Noncompliance with medication regimen: 09/02 - Unable to clarify if pt has been taking her medications regularly in the days since discharge. She at first indicated that she was not then indicated the medications arein a bag of hers but did not indicate actually taking them. The patient also claims to not recall the names of any of her medications and reports that she does not have the conditions for which her known medications are clearly intended. Possible cognitive impairments. might be impacting medication compliance. language impairments with pt not speaking Mongolian impacting compliance concerns. -The patient's underlying psychiatric condition will be actively treated. It is hoped that with treatment we will be able to improve medication compliance and also address aspects that impact compliance and improve this with appropriate interventions. CANTOR form of Invega to be continued at this time, next dose not due for another 2 weeks. Pt took meds this morning that were offered to her but given her extensive non compliance prior to, during and seeming after recent admission and lack of insight to her dx and presentation and indicating that recent hospitalization was quite helpful for her and her indicating wanting to continue her medications as was rx' at end of recent [facility] admission and were instructed to take at that discharge. I am in favor of medication over objection if pt objects to taking her medication during the course of this admission or if it is determined that pt is checking or not actually taking her medications. (3) Homeless: 09/03/19 -In the past, the patient has lived with family members. However, this is clearly not an option at the present time. The context is that the patient reportedly was in intermediate for approximately a year because of her making terroristic threats against the family. While it does seem clear that the family wants to help protect her, they are unable to safely provide mcc. Given the patient's history of neglect of self-care, medication nonadherence, and possible cognitive deficits we are going to investigate structured residential programs as part of our discharge planning. 09/03 -patient has consistently refused assistance with housing, insisting that she has a house in [place], although has not been able to provide an address and her family states this is not true. 09/06 - Patient's grandson called unit yesterday to provide additional information, stating the patient has been homeless for quite some time and there is no valid address for the patient (4) Involuntary commitment: 09/03 -patient on a 304 IOC, readmitted on a 302. We will file for a 306 conversion hearing. 09/04 - 306 hearing scheduled for 09/05; anticipate referral to [facility]. 09/05 -306 conversion granted, now here on a 304 involuntary commitment. 09/07 - Referral packet sent to [facility] on 09/06 (5) Nicotine abuse: 09/02 - Nicotine Patch 7mg topical daily resumed, and smoking cessation to be done when pt is in more apposite mental state to do so Inventory Assets Strengths: concerned family members, pleasant on approach Needs: stable housing, improved compliance to medication and treatment plan Risk Factors Assessment Male: No : No Do You Have Access To A Gun?: No Health Problems: No Mental Health Diagnoses: Yes Substance Use Disorders: No Previous Attempt: Yes (Per family, patient denies) Previous Psychiatric Hospitalization: Yes Hopelessness: No Smoker: Yes Protective Factors Assessment : No Responsible for Young Children: No Employed: No Stable Relationships: No Supportive Family: No Good Rapport with Provider: No Interval History Identifying Information ANDREW CYR is a 63-year-old F who currently is homeless in [facility], has a history of schizoaffective disorder, bipolar type, and was admitted on 09/03/19 05:42 on a 302 involuntary commitment for psychosis, suicidal ideation, inability to provide for basic needs, and medication noncompliance. Chief Complaint "I am well." Review of Systems Notes Constitutional: denied Cardiovascular: denied Respiratory: denied Gastrointestinal: denied Neurological: denied Psychiatric: denies symptoms other than stated above Total of at least 10 systems reviewed, pertinent positives as above and in HPI. Sleep Information Total Hours of Sleep: 8 Sleep Comments: awake a few times. requested marc zbigniew and milk to drink. overheard talking out loud in her bedroom in angry or tearful tones. noted episoded of coughing with phlem production when awake Meal Information Percent Meal Consumed - Breakfast: 50 Percent Meal Consumed - Lunch: 100 Percent Meal Consumed - Dinner: 100 Nutrition Comment: pt. allowed to sleep Subjective Subjective Patient was seen & assessed and interval progress reviewed with treatment team. Staff report the patient has been intermittently irritable, continues to be isolative in her room, and there are ongoing observations of patient actively responding to internal stimuli. Referral packet has been sent to [facility] for long-term psychiatric hospitalization. Pt declined to participate in initial encounter with this provider. Pt was agreeable with conversation about 1 hour later. Assistance with Sammarinese communication was offered by [facility] interpretive services Katherine Harp #[id number]. Pt reports "I am well" today. Pt reports that her GI symptoms reported yesterday have resolved and she feels "better." She reports sleep and appetite are "good, thanks." Pt was asked if she has been able to attend any group programming, and stated "I was able to get into one of these groups, but I had to walk away because I didn't understand the instruction." She states that she has been walking and states "It is very nice here." Pt continues to be compliant with medications and denies any physical complaints. Pt was informed about the referral sent to [facility], with this provider explaining our concern for her well-being as she has not been able to care for herself in the community. Pt states "no, I'm not going to any hospital. Actually, I'm not here for treatment. I was outside with my friends and the police brought me here because they thought I was trying to jump in front of a vehicle. But they are lying, and I am innocent." When asked who these 'friends' were, the patient provides an unidentifiable name, Earle (her brother), and Dr. Green (sp?) - the doctor whom she reported is performing her hernia surgery based on yesterday's reports. Pt was informed that while this may be her perception of the situation, there is significant concern for her safety outside of the hospital setting and that prolonged inpatient psychiatric hospitalization is recommended. She stands up and informs this provider "actually, I will not be going to the hospital. I am leaving now." Pt then walked into her bathroom and began speaking to herself in Sammarinese (weatherization and housing inspector unable to provide interpretation). Encounter was ended at that time. Physical Exam Psychiatric Orientation: alert, oriented to person, oriented to place and + guarded Apperance: appropriately dressed (casually, in t-shirt and scrub pants), appropriately groomed (freshly showered, though natural hair is curly and unruly) and appeared stated age Eye Contact: + fair eye contact Motor Behavior: steady gait and station and no abnormal motor movements Speech: normal rate/rhythm/volume of speech (Sammarinese-Mongolian interpretation provided without obvious issue) Affect: + blunted affect and + irritable affect (when discussing state hospital referral) Mood: no depressed mood ("I am well") Thought Process: goal directed thought process Thought Content: + paranoid and + delusions Suicidal Thoughts: denies suicidal thoughts and denies suicidal intent Hallucinations: ongoing observations of patient responding to internal stimuli when in her room, speaking to herself Cognition: attention grossly intact and language grossly intact Insight: + severely impaired insight Judgement: + severely impaired judgement Vital Signs (Past 24 Hours) Last Vital Signs Temp 36.6 C 09/08/19 06:00 Pulse 89 09/08/19 06:00 Resp 18 09/08/19 06:00 BP 148/85 H 09/08/19 06:00 Pulse Ox 95 09/03/19 05:47 Results & Data ([facility]) Current Inpatient Medications Current Inpatient Medications: Current Inpatient Medications Acetaminophen (Tylenol) 650 mg PO Q4H PRN PRN Reason: Headache or Minor Fever Stop: 10/03/19 05:41 Last Admin: 09/04/19 03:41 Dose: 650 mg Documented by: Al Hydrox/Mg Hydrox/Simethicone (Maalox) 30 ml PO Q4H PRN PRN Reason: GI Upset Stop: 10/03/19 05:41 Bismuth Subsalicylate (Kaopectate) 15 ml PO PRN PRN PRN Reason: Loose Stool Stop: 10/03/19 05:41 Docusate Sodium (Colace) 100 mg PO BID [facility] Stop: 10/05/19 08:59 Last Admin: 09/08/19 08:20 Dose: 100 mg Documented by: Hydroxyzine HCl (Vistaril) 50 mg PO HSZ PRN PRN Reason: Insomnia Stop: 10/03/19 05:41 Hydroxyzine HCl (Vistaril) 25 mg PO Q4H PRN PRN Reason: Anxiety Stop: 10/03/19 05:41 Levothyroxine Sodium (Synthroid) 75 mcg PO DAILYBB [facility] Stop: 10/03/19 07:59 Last Admin: 09/08/19 08:19 Dose: 75 mcg Documented by: [place] Carbonate (Eskalith) 450 mg PO BID [facility] Stop: 10/03/19 20:59 Last Admin: 09/08/19 08:20 Dose: 450 mg Documented by: Magnesium Hydroxide (Milk Of Magnesia) 30 ml PO DAILY PRN PRN Reason: Constipation Stop: 10/03/19 05:41 Miscellaneous (Remove Nicoderm Patch) 1 ea N/A DAILY@0859 [facility] Stop: 10/04/19 08:58 Last Admin: 09/08/19 08:50 Dose: 1 ea Documented by: Nicotine (Nicoderm Cq) 7 mg TD QAM [facility] Stop: 10/03/19 16:29 Last Admin: 09/08/19 08:51 Dose: 7 mg Documented by: Paliperidone (Invega) 6 mg PO DAILY [facility] Stop: 10/03/19 08:59 Last Admin: 09/08/19 08:20 Dose: 6 mg Documented by: Paliperidone Palmitate (Invega Sustenna) 234 mg IM Q4WK [facility] Stop: 10/17/19 08:59 Simvastatin (Zocor) 10 mg PO HS [facility] Stop: 10/03/19 21:59 Last Admin: 09/07/19 21:01 Dose: 10 mg Documented by: Sodium Chloride ([place] Nasal) 1 - 2 sprays NA PRN PRN PRN Reason: Nasal Dryness/Congestion Stop: 10/03/19 05:41 Mental Health & Subst Abuse Tx Psychiatrist Name of Psychiatrist: Jackelin Psychiatrist's Date of Appointment with Psychiatrist: 09/14/19 Time of Appointment with Psychiatrist: 11:00 a.m. Psychiatric Appointment Comment: [id number] [place] [address] Therapist Name of Therapist: None [employer] Name of [employer]: [employer] Lizzy Pandey Phone Number for [employer]: [phone] Post Discharge Appointments Primary Care Physician Name Of Family Doctor: [facility] Primary Care Provider Appointment Comment: [id number], [address], [place] [address]
[2019-09-08] MEDS: SIMVASTATIN 10 MG TAB PO SCH (20:45)
[2019-09-09] MEDS: NICOTINE 7 MG/24 HR TDSY TD SCH (08:29)
[2019-09-09] MEDS: LEVOTHYROXINE SODIUM 75 MCG TABLET PO SCH (08:30)
[2019-09-09] MEDS: PALIPERIDONE 3 MG TABCR PO SCH (08:31)
[2019-09-09] MEDS: LITHIUM CARBONATE 450 MG TABCR PO SCH ×2 (08:31→21:45)
[2019-09-09] MEDS: DOCUSATE SODIUM 100 MG CAP PO SCH ×2 (08:31→21:45)
--- NOTE | 2019-09-09 10:21 | Psychiatric Progress Note ---
Date of Service September 09, 2019 Impression / Recommendations Impression 63-year-old [place] female with schizoaffective disorder bipolar type admitted on a 302 commitment 4 days after being discharged from this unit on 08/29 after a 27-day hospitalization. She was discharged on a 304 IOC, and return to the ER later that same day, after police were called due to bizarre behavior at a local grocery store, but was again discharged. Readmitted with psychotic symptoms including paranoia, delusions of persecution (that family and people at the jail were trying to poison/harm her), refusing to eat with hypokalemia, homelessness, delusions that she owns a home, and inability to provide for her own basic needs. Additionally, family members who petitioned reported she made suicidal statements and walked into traffic, and reported delusions that her son had stabbed her in her intestines were hanging out. They also reported she had been noncompliant with oral psychotropic medications, and although her case management manager assisted her to fill these on the day of discharge, she did not bring them into the hospital with her and says she does not know where they are. She is repeatedly demonstrated complete inability to provide for her own basic needs outside of the hospital, including health, welfare, jail, food, and safety. Inpatient treatment is medically necessary due to the severity of her symptoms and risk for suicide if discharged. She is now on a 304 involuntary commitment, and we are recommending long-term inpatient treatment at the [facility]. Referral packet was sent for review on 09/07/2019. (1) Schizoaffective disorder, bipolar type: 09/03/19 -The patient has been admitted to the locked, secured behavioral health unit and has been placed in special observation room. She is also being monitored with close observations and every 15-minute direct observation. When more stable she will be actively encouraged to participate in individual, group, and activity therapies. We will also attempt to involve the family if the patient permits us to and if they agree. - Resuming medications as was rx'd at time of discharge on 08/29 including po Invega, lithium, and Sustenna. 09/03 -continue current medications, patient is taking them. -File for 306 conversion hearing to be held 09/06/2019. She will likely need referral to the [facility] due to the need for long-term inpatient treatment. -Reviewed FLP and FG from recent hospitalization 08/07/2019: Cholesterol 221, glucose 109, other values within normal limits. -Attempt to involve family is able; son-in-law Poli is petitioner and was involved in hospitalization so we will ask staff to contact him for collateral information and to determine the family's ability to assist with discharge planning and housing. She has very limited supports in the community and if they are unable to assist her with housing and care, she will likely require long-term hospitalization. -Continue private room for psychosis. 09/04 - Continue current medication regimen - patient has been compliant with medications in this structured environment - 306 conversion hearing scheduled for 09/05 - Meeting with case management manager today to discuss treatment options and continue attempts to build rapport - Referral to [facility] is being recommended at this time has patient has repeatedly demonstrated an inability to care for self and provide for basic needs without the support of a structured psychiatric setting. - EKG (WNL). PPD was refused by patient - CXR ordered 09/05 -306 hearing held and patient converted to a 304 involuntary commitment. -Referred to [facility] for long-term inpatient treatment, as patient is severely ill and unable to provide for her own basic needs as a result of her mental illness, and treatment for 27 days on our acute unit was insufficient for successful transition to the community. She was at [facility] for 4 months within the past year, and did respond to treatment there, so returned to the [facility] as recommended for long-term treatment of SPMI. -EKG and chest x-ray completed for state hospital referral. 09/06 - Continue current medication regimen - Referral to [facility] is being prepared, approval was reportedly received from the county - Ongoing attempt to build rapport with psychiatric case management manager 09/07 - 09/08 - Continue current medication regimen - Referral sent to [facility] on 09/07/2019 for recommended long- term psychiatric hospitalization based on chronic medication/treatment non- compliance and repeated demonstration of inability to care for self outside of a structured psychiatric setting. - Pt was informed of [facility] referral today during encounter (2) Noncompliance with medication regimen: 09/02 - Unable to clarify if pt has been taking her medications regularly in the days since discharge. She at first indicated that she was not then indicated the medications arein a bag of hers but did not indicate actually taking them. The patient also claims to not recall the names of any of her medications and reports that she does not have the conditions for which her known medications are clearly intended. Possible cognitive impairments. might be impacting medication compliance. language impairments with pt not speaking Chinese impacting compliance concerns. -The patient's underlying psychiatric condition will be actively treated. It is hoped that with treatment we will be able to improve medication compliance and also address aspects that impact compliance and improve this with appropriate interventions. CANTOR form of Invega to be continued at this time, next dose not due for another 2 weeks. Pt took meds this morning that were offered to her but given her extensive non compliance prior to, during and seeming after recent admission and lack of insight to her dx and presentation and indicating that recent hospitalization was quite helpful for her and her indicating wanting to continue her medications as was rx' at end of recent [facility] admission and were instructed to take at that discharge. I am in favor of medication over objection if pt objects to taking her medication during the course of this admission or if it is determined that pt is checking or not actually taking her medications. (3) Homeless: 09/03/19 -In the past, the patient has lived with family members. However, this is clearly not an option at the present time. The context is that the patient reportedly was in [facility] for approximately a year because of her making terroristic threats against the family. While it does seem clear that the family wants to help protect her, they are unable to safely provide jail. Given the patient's history of neglect of self-care, medication nonadherence, and possible cognitive deficits we are going to investigate structured residential programs as part of our discharge planning. 09/03 -patient has consistently refused assistance with housing, insisting that she has a house in [place], although has not been able to provide an address and her family states this is not true. 09/06 - Patient's grandson called unit yesterday to provide additional information, stating the patient has been homeless for quite some time and there is no valid address for the patient (4) Involuntary commitment: 09/03 -patient on a 304 IOC, readmitted on a 302. We will file for a 306 conversion hearing. 09/04 - 306 hearing scheduled for 09/05; anticipate referral to [facility]. 09/05 -306 conversion granted, now here on a 304 involuntary commitment. 09/07 - Referral packet sent to [facility] on 09/06 (5) Nicotine abuse: 09/02 - Nicotine Patch 7mg topical daily resumed, and smoking cessation to be done when pt is in more apposite mental state to do so Inventory Assets Strengths: concerned family members, pleasant on approach Needs: stable housing, improved compliance to medication and treatment plan Risk Factors Assessment Male: No : No Do You Have Access To A Gun?: No Health Problems: No Mental Health Diagnoses: Yes Substance Use Disorders: No Previous Attempt: Yes (Per family, patient denies) Previous Psychiatric Hospitalization: Yes Hopelessness: No Smoker: Yes Protective Factors Assessment : No Responsible for Young Children: No Employed: No Stable Relationships: No Supportive Family: No Good Rapport with Provider: No Interval History Identifying Information ANDREW CYR is a 63-year-old F who currently is homeless in [facility], has a history of schizoaffective disorder, bipolar type, and was admitted on 09/03/19 05:42 on a 302 involuntary commitment for psychosis, suicidal ideation, inability to provide for basic needs, and medication noncompliance. Chief Complaint "Good. Thank you." Review of Systems Notes Constitutional: denied Cardiovascular: denied Respiratory: denied Gastrointestinal: reports less frequent bowel movements, but denies clear constipation Neurological: denied Psychiatric: denies symptoms other than stated above Total of at least 10 systems reviewed, pertinent positives as above and in HPI. Sleep Information Total Hours of Sleep: 6.5 Sleep Comments: pt with ALEX @0600. pt on q-15 minute checks Meal Information Percent Meal Consumed - Breakfast: 75 Percent Meal Consumed - Lunch: 100 Percent Meal Consumed - Dinner: 100 Nutrition Comment: pt. allowed to sleep Subjective Subjective Patient was seen & assessed and interval progress reviewed with nursing and social work. Staff report the patient's status remains unchanged. She cont inues to be observed to be talking to herself when alone in her room and occasionally pacing the hallways appearing distressed. Pt was seen today to assess progress since admission. Korean-Chinese conversation was assisted with [employer] retail team leader - Anastacia #[id number]. Pt states she is "good. Thank you." When asked how she was doing, she states "I need surgery, so once I'm discharged from here." Pt does deny abdominal pain, difficulty with eating or difficulty with bowel movements. Pt does admit to less frequent bowel movements, but denies any issues with this at this time. Pt was reminded of available prn medications. Pt does request to know plan for discharge, and was again reminded of referral to the [facility]. Pt was informed of her 20-40 day length of stay, and states "that's is too long. I need, as you've noticed, to program this surgery." Pt is now providing a different description of events occurring prior to her admission. She now states "my brother had the keys to my penthouse and we couldn't find them. So I had to stay with friends until they could be contacted...I depend mostly on my ...I depend on my mom, I live with her. My mom comes in and takes care of me, makes sure I'm taking my medication." Pt was again made aware of our concerns for her safety, and informed that we have information suggests what she is saying is not true. Otherwise patient denied concerns today. Physical Exam Psychiatric Orientation: alert, oriented to person, oriented to place and cooperative (but remains in denial related to recommendation for ongoing hospitalization) Apperance: appropriately dressed (casually, in t-shirt and leggings), + disheveled and appeared stated age Eye Contact: good eye contact Motor Behavior: steady gait and station and no abnormal motor movements Speech: normal rate/rhythm/volume of speech Affect: + blunted affect (less irritable during today's encouraged) Mood: no depressed mood ("I'm good") Thought Process: goal directed thought process and + confabulations Thought Content: + preoccupation (with discharge, and having recommended surgery), + paranoid, + delusions and + persecution Suicidal Thoughts: denies suicidal thoughts Homicidal Thoughts: denies homicidal thoughts Hallucinations: observed to frequently be talking to herself, now claiming she is praying Cognition: attention grossly intact and language grossly intact Insight: + severely impaired insight Judgement: + severely impaired judgement Vital Signs (Past 24 Hours) Last Vital Signs Temp 36.5 C 09/09/19 06:30 Pulse 86 09/09/19 06:31 Resp 18 09/09/19 06:30 BP 145/87 H 09/09/19 06:31 Pulse Ox 95 09/03/19 05:47 [facility] Current Inpatient Medications Current Inpatient Medications: Current Inpatient Medications Acetaminophen (Tylenol) 650 mg PO Q4H PRN PRN Reason: Headache or Minor Fever Stop: 10/03/19 05:41 Last Admin: 09/04/19 03:41 Dose: 650 mg Documented by: Al Hydrox/Mg Hydrox/Simethicone (Maalox) 30 ml PO Q4H PRN PRN Reason: GI Upset Stop: 10/03/19 05:41 Bismuth Subsalicylate (Kaopectate) 15 ml PO PRN PRN PRN Reason: Loose Stool Stop: 10/03/19 05:41 Docusate Sodium (Colace) 100 mg PO BID [facility] Stop: 10/05/19 08:59 Last Admin: 09/09/19 08:31 Dose: 100 mg Documented by: Hydroxyzine HCl (Vistaril) 50 mg PO HSZ PRN PRN Reason: Insomnia Stop: 10/03/19 05:41 Hydroxyzine HCl (Vistaril) 25 mg PO Q4H PRN PRN Reason: Anxiety Stop: 10/03/19 05:41 Levothyroxine Sodium (Synthroid) 75 mcg PO DAILYBB [facility] Stop: 10/03/19 07:59 Last Admin: 09/09/19 08:30 Dose: 75 mcg Documented by: [place] Carbonate (Eskalith) 450 mg PO BID [facility] Stop: 10/03/19 20:59 Last Admin: 09/09/19 08:31 Dose: 450 mg Documented by: Magnesium Hydroxide (Milk Of Magnesia) 30 ml PO DAILY PRN PRN Reason: Constipation Stop: 10/03/19 05:41 Miscellaneous (Remove Nicoderm Patch) 1 ea N/A DAILY@0859 [facility] Stop: 10/04/19 08:58 Last Admin: 09/09/19 08:31 Dose: 1 ea Documented by: Nicotine (Nicoderm Cq) 7 mg TD QAM [facility] Stop: 10/03/19 16:29 Last Admin: 09/09/19 08:29 Dose: 7 mg Documented by: Paliperidone (Invega) 6 mg PO DAILY [facility] Stop: 10/03/19 08:59 Last Admin: 09/09/19 08:31 Dose: 6 mg Documented by: Paliperidone Palmitate (Invega Sustenna) 234 mg IM Q4WK [facility] Stop: 10/17/19 08:59 Simvastatin (Zocor) 10 mg PO HS CLARISA Stop: 10/03/19 21:59 Last Admin: 09/08/19 20:45 Dose: 10 mg Documented by: Sodium Chloride ([place] Nasal) 1 - 2 sprays NA PRN PRN PRN Reason: Nasal Dryness/Congestion Stop: 10/03/19 05:41 Mental Health & Subst Abuse Tx Psychiatrist Name of Psychiatrist: Jackelin Psychiatrist's Date of Appointment with Psychiatrist: 09/14/19 Time of Appointment with Psychiatrist: 11:00 a.m. [facility]ment [facility] [id number] [facility] [id number] The[facility]ist Name of Therapist: None Dock Associate Name of Dock Associate: [facility] - Lizzy Pandey Phone Number for Dock Associate: [phone] Post Discharge Appointments Primary Care Physician Name Of Family Doctor: [facility] Primary Care Provider Appointment Comment: [id number], [address], [place] [address]
[2019-09-09] MEDS: SIMVASTATIN 10 MG TAB PO SCH (21:46)
--- NOTE | 2019-09-10 08:39 | Psychiatric Progress Note ---
Date of Service September 10, 2019 Impression / Recommendations Impression 63-year-old Ghanaian female with schizoaffective disorder bipolar type admitted on a 302 commitment 4 days after being discharged from this unit on 08/29 after a 27-day hospitalization. She was discharged on a 304 IOC, and return to the ER later that same day, after police were called due to bizarre behavior at a local grocery store, but was again discharged. Readmitted with psychotic symptoms including paranoia, delusions of persecution (that family and people at the long term were trying to poison/harm her), refusing to eat with hypokalemia, homelessness, delusions that she owns a home, and inability to provide for her own basic needs. Additionally, family members who petitioned reported she made suicidal statements and walked into traffic, and reported delusions that her son had stabbed her in her intestines were hanging out. They also reported she had been noncompliant with oral psychotropic medications, and although her top case assembler assisted her to fill these on the day of discharge, she did not bring them into the hospital with her and says she does not know where they are. She is repeatedly demonstrated complete inability to provide for her own basic needs outside of the hospital, including health, welfare, long term, food, and safety. Inpatient treatment is medically necessary due to the severity of her symptoms and risk for suicide if discharged. She is now on a 304 involuntary commitment, and we are recommending long-term inpatient treatment at the [facility]. Referral packet was sent for review on 09/07/2019. (1) Schizoaffective disorder, bipolar type: 09/03/19 -The patient has been admitted to the locked, secured behavioral health unit and has been placed in special observation room. She is also being monitored with close observations and every 15-minute direct observation. When more stable she will be actively encouraged to participate in individual, group, and activity therapies. We will also attempt to involve the family if the patient permits us to and if they agree. - Resuming medications as was rx'd at time of discharge on 08/29 including po Invega, lithium, and Sustenna. 09/03 -continue current medications, patient is taking them. -File for 306 conversion hearing to be held 09/06/2019. She will likely need referral to the [facility] due to the need for long-term inpatient treatment. -Reviewed FLP and FG from recent hospitalization 08/07/2019: Cholesterol 221, glucose 109, other values within normal limits. -Attempt to involve family is able; son-in-law Poli is petitioner and was involved in hospitalization so we will ask staff to contact him for collateral information and to determine the family's ability to assist with discharge planning and housing. She has very limited supports in the community and if they are unable to assist her with housing and care, she will likely require long-term hospitalization. -Continue private room for psychosis. 09/04 - Continue current medication regimen - patient has been compliant with medications in this structured environment - 306 conversion hearing scheduled for 09/05 - Meeting with top case assembler today to discuss treatment options and continue attempts to build rapport - Referral to [facility] is being recommended at this time has patient has repeatedly demonstrated an inability to care for self and provide for basic needs without the support of a structured psychiatric setting. - EKG (WNL). PPD was refused by patient - CXR ordered 09/05 -306 hearing held and patient converted to a 304 involuntary commitment. -Referred to [facility] for long-term inpatient treatment, as patient is severely ill and unable to provide for her own basic needs as a result of her mental illness, and treatment for 27 days on our acute unit was insufficient for successful transition to the community. She was at [facility] for 4 months within the past year, and did respond to treatment there, so returned to the [facility] as recommended for long-term treatment of SPMI. -EKG and chest x-ray completed for state hospital referral. 09/06 - Continue current medication regimen - Referral to [facility] is being prepared, approval was reportedly received from the county - Ongoing attempt to build rapport with psychiatric top case assembler 09/07 - 09/09 - Continue current medication regimen - Referral sent to [facility] on 09/07/2019 for recommended long- term psychiatric hospitalization based on chronic medication/treatment non- compliance and repeated demonstration of inability to care for self outside of a structured psychiatric setting. - Pt was informed of [facility] referral today during encounter (2) Noncompliance with medication regimen: 09/02 - Unable to clarify if pt has been taking her medications regularly in the days since discharge. She at first indicated that she was not then indicated the medications arein a bag of hers but did not indicate actually taking them. The patient also claims to not recall the names of any of her medications and reports that she does not have the conditions for which her known medications are clearly intended. Possible cognitive impairments. might be impacting medication compliance. language impairments with pt not speaking Afghan impacting compliance concerns. -The patient's underlying psychiatric condition will be actively treated. It is hoped that with treatment we will be able to improve medication compliance and also address aspects that impact compliance and improve this with appropriate interventions. CANTOR form of Invega to be continued at this time, next dose not due for another 2 weeks. Pt took meds this morning that were offered to her but given her extensive non compliance prior to, during and seeming after recent admission and lack of insight to her dx and presentation and indicating that recent hospitalization was quite helpful for her and her indicating wanting to continue her medications as was rx' at end of recent [facility] admission and were instructed to take at that discharge. I am in favor of medication over objection if pt objects to taking her medication during the course of this admission or if it is determined that pt is checking or not actually taking her medications. (3) Homeless: 09/03/19 -In the past, the patient has lived with family members. However, this is clearly not an option at the present time. The context is that the patient reportedly was in [facility] for approximately a year because of her making terroristic threats against the family. While it does seem clear that the family wants to help protect her, they are unable to safely provide long term. Given the patient's history of neglect of self-care, medication nonadherence, and possible cognitive deficits we are going to investigate structured residential programs as part of our discharge planning. 09/03 -patient has consistently refused assistance with housing, insisting that she has a house in [place], although has not been able to provide an address and her family states this is not true. 09/06 - Patient's grandson called unit yesterday to provide additional information, stating the patient has been homeless for quite some time and there is no valid address for the patient (4) Involuntary commitment: 09/03 -patient on a 304 IOC, readmitted on a 302. We will file for a 306 conversion hearing. 09/04 - 306 hearing scheduled for 09/05; anticipate referral to [facility]. 09/05 -306 conversion granted, now here on a 304 involuntary commitment. 09/07 - Referral packet sent to [facility] on 09/06 (5) Nicotine abuse: 09/02 - Nicotine Patch 7mg topical daily resumed, and smoking cessation to be done when pt is in more apposite mental state to do so Inventory Assets Strengths: concerned family members, pleasant on approach Needs: stable housing, improved compliance to medication and treatment plan Risk Factors Assessment Male: No : No Do You Have Access To A Gun?: No Health Problems: No Mental Health Diagnoses: Yes Substance Use Disorders: No Previous Attempt: Yes (Per family, patient denies) Previous Psychiatric Hospitalization: Yes Hopelessness: No Smoker: Yes Protective Factors Assessment : No Responsible for Young Children: No Employed: No Stable Relationships: No Supportive Family: No Good Rapport with Provider: No Interval History Identifying Information ANDREW CYR is a 63-year-old F who currently is homeless in [place] [facility], has a history of schizoaffective disorder, bipolar type, and was admitted on 09/03/19 05:42 on a 302 involuntary commitment for psychosis, suicidal ideation, inability to provide for basic needs, and medication noncompliance. Chief Complaint "Good. Thank you." Review of Systems Notes Constitutional: denied Cardiovascular: denied Respiratory: denied Gastrointestinal: denied Neurological: denied Psychiatric: denies symptoms other than stated above Total of at least 10 systems reviewed, pertinent positives as above and in HPI. Sleep Information Total Hours of Sleep: 6 Sleep Comments: pt ALEX @0600. pt on q-15 minute checks Meal Information Percent Meal Consumed - Breakfast: 100 Percent Meal Consumed - Lunch: 100 Percent Meal Consumed - Dinner: 100 Nutrition Comment: pt. allowed to sleep Subjective Subjective Patient was seen & assessed and interval progress reviewed with nursing and social work. Staff report the patient has continued to be isolative, but cooperative. Pt was seen today to assess progress since admission. Brazilian- Afghan conversation conducted with assistance from [employer] ladies locker room attendant - Tameka #[id number]. Pt states she is "good. Thanks." She denies any physical concerns at this time and continues to tolerate medications. She denies SI/HI and auditory or visual hallucinations. Pt was asked if she had any questions or concerns she desired to discuss today and she declined. Physical Exam Psychiatric Orientation: alert, oriented to person, oriented to place and cooperative (superficially) Apperance: appropriately dressed (casually, in t-shirt and leggings), + disheveled (hair appearing unkempt) and appeared stated age Eye Contact: + fair eye contact Motor Behavior: no abnormal motor movements (observed while sitting on edge of bed) Speech: normal rate/rhythm/volume of speech Affect: + blunted affect (appearing fatigued, but otherwise in good spirits) Mood: no depressed mood ("Good") Thought Process: goal directed thought process and + concrete thought process Thought Content: + delusions (underlying, not as freely expressed today); no hopelessness Suicidal Thoughts: denies suicidal thoughts and denies suicidal intent Homicidal Thoughts: denies homicidal thoughts Hallucinations: no auditory hallucinations and no visual hallucinations Cognition: attention grossly intact and language grossly intact Insight: + severely impaired insight Judgement: + severely impaired judgement Vital Signs (Past 24 Hours) Last Vital Signs Temp 36.4 C L 09/10/19 06:24 Pulse 73 09/10/19 06:25 Resp 18 09/10/19 06:24 BP 146/88 H 09/10/19 06:25 Pulse Ox 95 09/03/19 05:47 Results & Data ([facility]) Current Inpatient Medications Current Inpatient Medications: Current Inpatient Medications Acetaminophen (Tylenol) 650 mg PO Q4H PRN PRN Reason: Headache or Minor Fever Stop: 10/03/19 05:41 Last Admin: 09/04/19 03:41 Dose: 650 mg Documented by: Al Hydrox/Mg Hydrox/Simethicone (Maalox) 30 ml PO Q4H PRN PRN Reason: GI Upset Stop: 10/03/19 05:41 Bismuth Subsalicylate (Kaopectate) 15 ml PO PRN PRN PRN Reason: Loose Stool Stop: 10/03/19 05:41 Docusate Sodium (Colace) 100 mg PO BID CLARISA Stop: 10/05/19 08:59 Last Admin: 09/09/19 21:45 Dose: 100 mg Documented by: Hydroxyzine HCl (Vistaril) 50 mg PO HSZ PRN PRN Reason: Insomnia Stop: 10/03/19 05:41 Hydroxyzine HCl (Vistaril) 25 mg PO Q4H PRN PRN Reason: Anxiety Stop: 10/03/19 05:41 Levothyroxine Sodium (Synthroid) 75 mcg PO DAILYBB CLARISA Stop: 10/03/19 07:59 Last Admin: 09/09/19 08:30 Dose: 75 mcg Documented by: [place] Carbonate (Eskalith) 450 mg PO BID [facility] Stop: 10/03/19 20:59 Last Admin: 09/09/19 21:45 Dose: 450 mg Documented by: Magnesium Hydroxide (Milk Of Magnesia) 30 ml PO DAILY PRN PRN Reason: Constipation Stop: 10/03/19 05:41 Miscellaneous (Remove Nicoderm Patch) 1 ea N/A DAILY@0859 [facility] Stop: 10/04/19 08:58 Last Admin: 09/09/19 08:31 Dose: 1 ea Documented by: Nicotine (Nicoderm Cq) 7 mg TD QAM [facility] Stop: 10/03/19 16:29 Last Admin: 09/09/19 08:29 Dose: 7 mg Documented by: Paliperidone (Invega) 6 mg PO DAILY [facility] Stop: 10/03/19 08:59 Last Admin: 09/09/19 08:31 Dose: 6 mg Documented by: Paliperidone Palmitate (Invega Sustenna) 234 mg IM Q4WK [facility] Stop: 10/17/19 08:59 Simvastatin (Zocor) 10 mg PO HS [facility] Stop: 10/03/19 21:59 Last Admin: 09/09/19 21:46 Dose: 10 mg Documented by: Sodium Chloride ([place]ard Nasal) 1 - 2 sprays NA PRN PRN PRN Reason: Nasal Dryness/Congestion Stop: 10/03/19 05:41 Mental Health & Subst Abuse Tx Psychiatrist Name of Psychiatrist: Jackelin Psychiatrist's Date of Appointment with Psychiatrist: 09/14/19 Time of Appointment with Psychiatrist: 11:00 a.m. [facility] [phone] [facility] [id number] [facility] Name of Therapist: None Urology Physician Name of Urology Physician: [facility] Lizzy Pandey Phone Number for Urology Physician: [phone] Post Discharge Appointments Primary Care Physician Name Of Family Doctor: [facility] Primary Care Provider Appointment Comment: [phone], [address], [place] [address]
[2019-09-10] MEDS: LEVOTHYROXINE SODIUM 75 MCG TABLET PO SCH (09:17)
[2019-09-10] MEDS: DOCUSATE SODIUM 100 MG CAP PO SCH ×2 (09:18→20:37)
[2019-09-10] MEDS: PALIPERIDONE 3 MG TABCR PO SCH (09:18)
[2019-09-10] MEDS: LITHIUM CARBONATE 450 MG TABCR PO SCH ×2 (09:18→20:38)
[2019-09-10] MEDS: NICOTINE 7 MG/24 HR TDSY TD SCH (09:26)
[2019-09-10] MEDS: SIMVASTATIN 10 MG TAB PO SCH (20:38)
[2019-09-11] MEDS: LEVOTHYROXINE SODIUM 75 MCG TABLET PO SCH (08:31)
[2019-09-11] MEDS: NICOTINE 7 MG/24 HR TDSY TD SCH (08:32)
[2019-09-11] MEDS: DOCUSATE SODIUM 100 MG CAP PO SCH ×2 (08:32→20:41)
[2019-09-11] MEDS: PALIPERIDONE 3 MG TABCR PO SCH (08:32)
[2019-09-11] MEDS: LITHIUM CARBONATE 450 MG TABCR PO SCH ×2 (08:34→20:42)
--- NOTE | 2019-09-11 09:38 | Psychiatric Progress Note ---
Date of Service September 11, 2019 Impression / Recommendations Impression 63-year-old Stateless female with schizoaffective disorder bipolar type admitted on a 302 commitment 4 days after being discharged from this unit on 08/29 after a 27-day hospitalization. She was discharged on a 304 IOC, and return to the ER later that same day, after police were called due to bizarre behavior at a local grocery store, but was again discharged. Readmitted with psychotic symptoms including paranoia, delusions of persecution (that family and people at the fci were trying to poison/harm her), refusing to eat with hypokalemia, homelessness, delusions that she owns a home, and inability to provide for her own basic needs. Additionally, family members who petitioned reported she made suicidal statements and walked into traffic, and reported delusions that her son had stabbed her in her intestines were hanging out. They also reported she had been noncompliant with oral psychotropic medications, and although her residential case manager assisted her to fill these on the day of discharge, she did not bring them into the hospital with her and says she does not know where they are. She is repeatedly demonstrated complete inability to provide for her own basic needs outside of the hospital, including health, welfare, fci, food, and safety. Inpatient treatment is medically necessary due to the severity of her symptoms and risk for suicide if discharged. She is now on a 304 involuntary commitment, and we are recommending long-term inpatient treatment at the [facility]. Referral packet was sent for review on 09/07/2019. (1) Schizoaffective disorder, bipolar type: 09/03/19 -The patient has been admitted to the locked, secured behavioral health unit and has been placed in special observation room. She is also being monitored with close observations and every 15-minute direct observation. When more stable she will be actively encouraged to participate in individual, group, and activity therapies. We will also attempt to involve the family if the patient permits us to and if they agree. - Resuming medications as was rx'd at time of discharge on 08/29 including po Invega, lithium, and Sustenna. 09/03 -continue current medications, patient is taking them. -File for 306 conversion hearing to be held 09/06/2019. She will likely need referral to the [facility] due to the need for long-term inpatient treatment. -Reviewed FLP and FG from recent hospitalization 08/07/2019: Cholesterol 221, glucose 109, other values within normal limits. -Attempt to involve family is able; son-in-law Poli is petitioner and was involved in hospitalization so we will ask staff to contact him for collateral information and to determine the family's ability to assist with discharge planning and housing. She has very limited supports in the community and if they are unable to assist her with housing and care, she will likely require long-term hospitalization. -Continue private room for psychosis. 09/04 - Continue current medication regimen - patient has been compliant with medications in this structured environment - 306 conversion hearing scheduled for 09/05 - Meeting with residential case manager today to discuss treatment options and continue attempts to build rapport - Referral to [facility] is being recommended at this time has patient has repeatedly demonstrated an inability to care for self and provide for basic needs without the support of a structured psychiatric setting. - EKG (WNL). PPD was refused by patient - CXR ordered 09/05 -306 hearing held and patient converted to a 304 involuntary commitment. -Referred to [facility] for long-term inpatient treatment, as patient is severely ill and unable to provide for her own basic needs as a result of her mental illness, and treatment for 27 days on our acute unit was insufficient for successful transition to the community. She was at [facility] for 4 months within the past year, and did respond to treatment there, so [facility] for [facility]-term treatment of SPMI. -EKG and chest x-ray completed for state hospital referral. 09/06 - Continue current medication regimen - Referral to [facility] is being prepared, approval was reportedly received from the county - Ongoing attempt to build rapport with psychiatric residential case manager 09/07 - 09/09 - Continue current medication regimen - Referral sent to [facility] on 09/07/2019 for recommended long- term psychiatric hospitalization based on chronic medication/treatment non- compliance and repeated demonstration of inability to care for self outside of a structured psychiatric setting. - Pt was informed of [facility] referral today during encounter 09/10 - Continue current medication regimen - [place] referral sent on 09/07/2019 - requesting updates regarding when case is anticipated to be reviewed and ensure information was received - Pt continues to demand to leave, unable to appreciated the severity of her condition. Ongoing concern related to patient's repeated demonstration of inability to care for self outside of a structured psychiatric setting. (2) Noncompliance with medication regimen: 09/02 - Unable to clarify if pt has been taking her medications regularly in the days since discharge. She at first indicated that she was not then indicated the medications arein a bag of hers but did not indicate actually taking them. The patient also claims to not recall the names of any of her medications and reports that she does not have the conditions for which her known medications are clearly intended. Possible cognitive impairments. might be impacting medication compliance. language impairments with pt not speaking Maltese impacting compliance concerns. -The patient's underlying psychiatric condition will be actively treated. It is hoped that with treatment we will be able to improve medication compliance and also address aspects that impact compliance and improve this with appropriate interventions. CANTOR form of Invega to be continued at this time, next dose not due for another 2 weeks. Pt took meds this morning that were offered to her but given her extensive non compliance prior to, during and seeming after recent admission and lack of insight to her dx and presentation and indicating that recent hospitalization was quite helpful for her and her indicating wanting to continue her medications as was rx' at end of recent [facility] admission and were instructed to take at that discharge. I am in favor of medication over objection if pt objects to taking her medication during the course of this admission or if it is determined that pt is checking or not actually taking her medications. (3) Homeless: 09/03/19 -In the past, the patient has lived with family members. However, this is clearly not an option at the present time. The context is that the patient reportedly was in senior care for approximately a year because of her making terroristic threats against the family. While it does seem clear that the family wants to help protect her, they are unable to safely provide fci. Given the patient's history of neglect of self-care, medication nonadherence, and possible cognitive deficits we are going to investigate structured residential programs as part of our discharge planning. 09/03 -patient has consistently refused assistance with housing, insisting that she has a house in [place], although has not been able to provide an address and her family states this is not true. 09/06 - Patient's grandson called unit yesterday to provide additional information, stating the patient has been homeless for quite some time and there is no valid address for the patient (4) Involuntary commitment: 09/03 -patient on a 304 IOC, readmitted on a 302. We will file for a 306 conversion hearing. 09/04 - 306 hearing scheduled for 09/05; anticipate referral to [facility]. 09/05 -306 conversion granted, now here on a 304 involuntary commitment. 09/07 - Referral packet sent to [facility] on 09/06 (5) Nicotine abuse: 09/02 - Nicotine Patch 7mg topical daily resumed, and smoking cessation to be done when pt is in more apposite mental state to do so Inventory Assets Strengths: concerned family members, pleasant on approach Needs: stable housing, improved compliance to medication and treatment plan Risk Factors Assessment Male: No : No Do You Have Access To A Gun?: No Health Problems: No Mental Health Diagnoses: Yes Substance Use Disorders: No Previous Attempt: Yes (Per family, patient denies) Previous Psychiatric Hospitalization: Yes Hopelessness: No Smoker: Yes Protective Factors Assessment : No Responsible for Young Children: No Employed: No Stable Relationships: No Supportive Family: No Good Rapport with Provider: No Interval History Identifying Information ANDREW CYR is a 63-year-old F who currently is homeless in [facility], has a history of schizoaffective disorder, bipolar type, and was admitted on 09/03/19 05:42 on a 302 involuntary commitment for psychosis, suicidal ideation, inability to provide for basic needs, and medication noncompliance. Chief Complaint "Doctor, it's just that I have a surgery which cannot wait. They said, I don't know how many days longer. I cannot wait." Review of Systems Notes Constitutional: denied Cardiovascular: denied Respiratory: denied Gastrointestinal: denied Neurological: denied Psychiatric: denies symptoms other than stated above Total of at least 10 systems reviewed, pertinent positives as above and in HPI. Sleep Information Total Hours of Sleep: 6.25 Sleep Comments: noted a coughing episode once during the night Meal Information Percent Meal Consumed - Breakfast: 100 Percent Meal Consumed - Lunch: 100 Percent Meal Consumed - Dinner: 85 Nutrition Comment: pt. allowed to sleep Subjective Subjective Patient was seen & assessed and interval progress reviewed with treatment team. Staff report the patient has continued to be cooperative and pleasant with staff. She continues to be complaint with staff but largely isolative. Pt was seen today to assess progress since admission. Kyrgyz-Maltese conversation was held with assistance from [employer] interpreters, two separate sessions due to patient becoming angry and leaving room, but then requesting ongoing conversation - Ariana #[id number]; Shelbi #[id number]. Interview was conducted after patient approached nurse's station requesting to speak with this provider. Pt stated "Doctor, it's just that I have a surgery which cannot wait. They said, I don't know how many days longer. I cannot wait." Pt was informed that we are monitoring her GI symptoms regularly, but that at this time her psychiatric concerns are more acute than surgical need. Pt states "I don't want to be rude, but if I am not leaving I will isabel the whole hospital." Pt was again informed that our primary concern is for her safety and that she has consistently demonstrated inability to care for herself outside of the hospital. She states "Well I do have safety. I have friends and I talk to them. It is not right to lock me up for that." When asked who these friends are, she states "I have a lot of friends, doctors, engineers, even a brother." This provider discussed the information that had been provided to us, that patient does not have adequate support to encourage safety. She states "they cannot keep me here. I'll make the hospital lock down. I have a lot of money and I will shut it down." Pt was informed that she would not be discharged until safe discharge planning is arranged, and responded with "well make that plan today, because Poli will pick me up today." Pt admits that she has not had contact with any family or friends while in the hospital. Pt then became frustrated and said "no more interviews." Pt left and went to her restroom and initial call was concluded. She came back rather quickly and began again speaking to this provider so new call was initiated. Pt inquired "How much (money) would it take for me to be discharged? I can't stay here because I have surgery. I will shut this place down, I will make them fire you. I am not that ill, I will not stay 40 days or 40 nights, just 8-10 days. No more. No more interview." Interview was concluded at that time. Physical Exam Psychiatric Orientation: alert, oriented to person, oriented to place and + guarded (uncooperative, argumentative) Apperance: appropriately dressed (casually, wearing t-shirt and leggings) and + disheveled (hair is appearing unkempt ) Eye Contact: good eye contact Motor Behavior: steady gait and station and no abnormal motor movements Speech: normal rate/rhythm/volume of speech (irritable tone) Affect: + angry affect; + mood not congruent with affect Mood: no depressed mood ("Okay", will deny that she is angry) Thought Process: goal directed thought process and + confabulations Thought Content: + preoccupation (with discharge and reported surgery she wants to schedule), + delusions and + persecution Suicidal Thoughts: denies suicidal thoughts Homicidal Thoughts: denies homicidal thoughts Hallucinations: no auditory hallucinations and no visual hallucinations Patient denies hallucinations, though she is often observed to be talking to herself Cognition: language grossly intact Insight: + severely impaired insight Judgement: + severely impaired judgement Vital Signs (Past 24 Hours) Last Vital Signs Temp 36.6 C 09/11/19 06:45 Pulse 75 09/11/19 06:45 Resp 18 09/11/19 06:45 BP 148/79 H 09/11/19 06:45 Pulse Ox 95 09/03/19 05:47 Results & Data ([facility]) Current Inpatient Medications Current Inpatient Medications: Current Inpatient Medications Acetaminophen (Tylenol) 650 mg PO Q4H PRN PRN Reason: Headache or Minor Fever Stop: 10/03/19 05:41 Last Admin: 09/04/19 03:41 Dose: 650 mg Documented by: Al Hydrox/Mg Hydrox/Simethicone (Maalox) 30 ml PO Q4H PRN PRN Reason: GI Upset Stop: 10/03/19 05:41 Bismuth Subsalicylate (Kaopectate) 15 ml PO PRN PRN PRN Reason: Loose Stool Stop: 10/03/19 05:41 Docusate Sodium (Colace) 100 mg PO BID CLARISA Stop: 10/05/19 08:59 Last Admin: 09/11/19 08:32 Dose: 100 mg Documented by: Hydroxyzine HCl (Vistaril) 50 mg PO HSZ PRN PRN Reason: Insomnia Stop: 10/03/19 05:41 Hydroxyzine HCl (Vistaril) 25 mg PO Q4H PRN PRN Reason: Anxiety Stop: 10/03/19 05:41 Levothyroxine Sodium (Synthroid) 75 mcg PO DAILYBB CLARISA Stop: 10/03/19 07:59 Last Admin: 09/11/19 08:31 Dose: 75 mcg Documented by: Chenega Carbonate (Eskalith) 450 mg PO BID CLARISA Stop: 10/03/19 20:59 Last Admin: 09/11/19 08:34 Dose: 450 mg Documented by: Magnesium Hydroxide (Milk Of Magnesia) 30 ml PO DAILY PRN PRN Reason: Constipation Stop: 10/03/19 05:41 Miscellaneous (Remove Nicoderm Patch) 1 ea N/A DAILY@0859 CLARISA Stop: 10/04/19 08:58 Last Admin: 09/11/19 08:42 Dose: 1 ea Documented by: Nicotine (Nicoderm Cq) 7 mg TD QAM CLARISA Stop: 10/03/19 16:29 Last Admin: 09/11/19 08:32 Dose: 7 mg Documented by: Paliperidone (Invega) 6 mg PO DAILY CLARISA Stop: 10/03/19 08:59 Last Admin: 09/11/19 08:32 Dose: 6 mg Documented by: Paliperidone Palmitate (Invega Sustenna) 234 mg IM Q4WK CLARISA Stop: 10/17/19 08:59 Simvastatin (Zocor) 10 mg PO HS [facility] Stop: 10/03/19 21:59 Last Admin: 09/10/19 20:38 Dose: 10 mg Documented by: Sodium Chloride (Heron Nasal) 1 - 2 sprays NA PRN PRN PRN Reason: Nasal Dryness/Congestion Stop: 10/03/19 05:41 Mental Health & Subst Abuse Tx Psychiatrist Name of Psychiatrist: Jackelin Psychiatrist's Date of Appointment with Psychiatrist: 09/14/19 Time of Appointment with Psychiatrist: 11:00 a.m. Psychiatric Appointment Comment: [address] [facility] [address], [place] [address] Therapist Name of Therapist: None Transition Lead Name of Transition Lead: [facility] Lizzy Pandey Phone Number for Transition Lead: [phone] Post Discharge Appointments Primary Care Physician Name Of Family Doctor: [facility] Primary Care Provider Appointment Comment: [address] [facility], [address], [place] [address]
[2019-09-11] MEDS: SIMVASTATIN 10 MG TAB PO SCH (20:42)
[2019-09-12] MEDS: PALIPERIDONE 3 MG TABCR PO SCH (08:45)
[2019-09-12] MEDS: LITHIUM CARBONATE 450 MG TABCR PO SCH ×2 (08:45→21:37)
[2019-09-12] MEDS: LEVOTHYROXINE SODIUM 75 MCG TABLET PO SCH (08:45)
[2019-09-12] MEDS: DOCUSATE SODIUM 100 MG CAP PO SCH ×2 (08:45→21:37)
[2019-09-12] MEDS: NICOTINE 7 MG/24 HR TDSY TD SCH (08:46)
--- NOTE | 2019-09-12 09:35 | Psychiatric Progress Note ---
Date of Service September 12, 2019 Impression / Recommendations Impression 63-year-old [place] female with schizoaffective disorder bipolar type admitted on a 302 commitment 4 days after being discharged from this unit on 08/29 after a 27-day hospitalization. She was discharged on a 304 IOC, and return to the ER later that same day, after police were called due to bizarre behavior at a local grocery store, but was again discharged. Readmitted with psychotic symptoms including paranoia, delusions of persecution (that family and people at the chcf were trying to poison/harm her), refusing to eat with hypokalemia, homelessness, delusions that she owns a home, and inability to provide for her own basic needs. Additionally, family members who petitioned reported she made suicidal statements and walked into traffic, and reported delusions that her son had stabbed her in her intestines were hanging out. They also reported she had been noncompliant with oral psychotropic medications, and although her case loader operator assisted her to fill these on the day of discharge, she did not bring them into the hospital with her and says she does not know where they are. She is repeatedly demonstrated complete inability to provide for her own basic needs outside of the hospital, including health, welfare, chcf, food, and safety. Inpatient treatment is medically necessary due to the severity of her symptoms and risk for suicide if discharged. She is now on a 304 involuntary commitment, and we are recommending long-term inpatient treatment at the [facility]. Referral packet was sent for review on 09/07/2019. (1) Schizoaffective disorder, bipolar type: 09/03/19 -The patient has been admitted to the locked, secured behavioral health unit and has been placed in special observation room. She is also being monitored with close observations and every 15-minute direct observation. When more stable she will be actively encouraged to participate in individual, group, and activity therapies. We will also attempt to involve the family if the patient permits us to and if they agree. - Resuming medications as was rx'd at time of discharge on 08/29 including po Invega, lithium, and Sustenna. 09/03 -continue current medications, patient is taking them. -File for 306 conversion hearing to be held 09/06/2019. She will likely need referral to the [facility] due to the need for long-term inpatient treatment. -Reviewed FLP and FG from recent hospitalization 08/07/2019: Cholesterol 221, glucose 109, other values within normal limits. -Attempt to involve family is able; son-in-law Poli is petitioner and was involved in hospitalization so we will ask staff to contact him for collateral information and to determine the family's ability to assist with discharge planning and housing. She has very limited supports in the community and if they are unable to assist her with housing and care, she will likely require long-term hospitalization. -Continue private room for psychosis. 09/04 - Continue current medication regimen - patient has been compliant with medications in this structured environment - 306 conversion hearing scheduled for 09/05 - Meeting with case loader operator today to discuss treatment options and continue attempts to build rapport - Referral to [facility] is being recommended at this time has patient has repeatedly demonstrated an inability to care for self and provide for basic needs without the support of a structured psychiatric setting. - EKG (WNL). PPD was refused by patient - CXR ordered 09/05 -306 hearing held and patient converted to a 304 involuntary commitment. -Referred to [facility] for long-term inpatient treatment, as patient is severely ill and unable to provide for her own basic needs as a result of her mental illness, and treatment for 27 days on our acute unit was insufficient for successful transition to the community. She was at [facility] for 4 months within the past year, and did respond to treatment there, so returned to the [facility] as recommended for long-term treatment of SPMI. -EKG and chest x-ray completed for state hospital referral. 09/06 - Continue current medication regimen - Referral to [facility] is being prepared, approval was reportedly received from the county - Ongoing attempt to build rapport with psychiatric case loader operator 09/07 - 09/09 - Continue current medication regimen - Referral sent to [facility] on 09/07/2019 for recommended long- term psychiatric hospitalization based on chronic medication/treatment non- compliance and repeated demonstration of inability to care for self outside of a structured psychiatric setting. - Pt was informed of [facility] referral today during encounter 09/10 - Continue current medication regimen - [place] referral sent on 09/07/2019 - requesting updates regarding when case is anticipated to be reviewed and ensure information was received - Pt continues to demand to leave, unable to appreciated the severity of her condition. Ongoing concern related to patient's repeated demonstration of inability to care for self outside of a structured psychiatric setting. 09/11 - Continue current medication regimen - Awaiting acceptance at [facility]. Ongoing concern related to patient's repeated demonstration of inability to care for self outside of a structured psychiatric setting. (2) Noncompliance with medication regimen: 09/02 - Unable to clarify if pt has been taking her medications regularly in the days since discharge. She at first indicated that she was not then indicated the medications arein a bag of hers but did not indicate actually taking them. The patient also claims to not recall the names of any of her medications and reports that she does not have the conditions for which her known medications are clearly intended. Possible cognitive impairments. might be impacting medication compliance. language impairments with pt not speaking [place]o impacting compliance concerns. -The patient's underlying psychiatric condition will be actively treated. It is hoped that with treatment we will be able to improve medication compliance and also address aspects that impact compliance and improve this with appropriate interventions. CANTOR form of Invega to be continued at this time, next dose not due for another 2 weeks. Pt took meds this morning that were offered to her but given her extensive non compliance prior to, during and seeming after recent admission and lack of insight to her dx and presentation and indicating that recent hospitalization was quite helpful for her and her indicating wanting to continue her medications as was rx' at end of recent [facility] admission and were instructed to take at that discharge. I am in favor of medication over objection if pt objects to taking her medication during the course of this admission or if it is determined that pt is checking or not actually taking her medications. (3) Homeless: 09/03/19 -In the past, the patient has lived with family members. However, this is clearly not an option at the present time. The context is that the patient reportedly was in nursing home for approximately a year because of her making terroristic threats against the family. While it does seem clear that the family wants to help protect her, they are unable to safely provide chcf. Given the patient's history of neglect of self-care, medication nonadherence, and possible cognitive deficits we are going to investigate structured residential programs as part of our discharge planning. 09/03 -patient has consistently refused assistance with housing, insisting that she has a house in [place], although has not been able to provide an addre ss and her family states this is not true. 09/06 - Patient's grandson called unit yesterday to provide additional information, stating the patient has been homeless for quite some time and there is no valid address for the patient (4) Involuntary commitment: 09/03 -patient on a 304 IOC, readmitted on a 302. We will file for a 306 conversion hearing. 09/04 - 306 hearing scheduled for 09/05; anticipate referral to [facility]. 09/05 -306 conversion granted, now here on a 304 involuntary commitment. 09/07 - Referral packet sent to [facility] on 09/06 (5) Nicotine abuse: 09/02 - Nicotine Patch 7mg topical daily resumed, and smoking cessation to be done when pt is in more apposite mental state to do so Inventory Assets Strengths: concerned family members, pleasant on approach Needs: stable housing, improved compliance to medication and treatment plan Risk Factors Assessment Male: No : No Do You Have Access To A Gun?: No Health Problems: No Mental Health Diagnoses: Yes Substance Use Disorders: No Previous Attempt: Yes (Per family, patient denies) Previous Psychiatric Hospitalization: Yes Hopelessness: No Smoker: Yes Protective Factors Assessment : No Responsible for Young Children: No Employed: No Stable Relationships: No Supportive Family: No Good Rapport with Provider: No Interval History Identifying Information ANDREW CYR is a 63-year-old F who currently is homeless in [place], has a history of schizoaffective disorder, bipolar type, and was admitted on 09/03/19 05:42 on a 302 involuntary commitment for psychosis, suicidal ideation, inability to provide for basic needs, and medication noncompliance. Chief Complaint When asked if she had time to talk, patient stated "totos monson???" ["Every day?"] Review of Systems Notes Constitutional: denied Cardiovascular: denied Respiratory: denied Gastrointestinal: denied Neurological: denied Psychiatric: denies symptoms other than stated above Total of at least 10 systems reviewed, pertinent positives as above and in HPI. Sleep Information Total Hours of Sleep: 5.25 Sleep Comments: andrew came out to the nurses station to ask for a drink at 0210 and 0445. she choose gingerale to drink. Meal Information Percent Meal Consumed - Breakfast: 100 Percent Meal Consumed - Lunch: 100 Percent Meal Consumed - Dinner: 100 Nutrition Comment: documented from the pt. meal record Subjective Subjective Patient was seen & assessed and interval progress reviewed with nursing and social work. Staff report the patient has been cooperative on the unit, but continues to isolate in her room. Pt did reportedly brighten when offered a radio and bible scriptures printed in [place]. Pt was seen today to assess progress since admission. [place] conversation was held with assistance from [facility] interpretive services - [place] #[id number]. When asked if patient had time to speak, she inquired "todos monson???" ["every day???"]. She was ultimately agreeable to speak after some encouragement. Pt reports she is sleeping and eating ok, and denies any physical complaints. Pt denies SI/HI, A/V hallucinations or other concerns. Pt reports she is keeping busy by listening to music (patient provided with radio in her room). She states she also likes to walk. When asked if we could provide patient with any additional activities in [place], she declined and stated "I'm ok for now." Pt denied other needs or concerns today. Physical Exam Psychiatric Orientation: alert, oriented to person, oriented to place and cooperative (and pleasant) Apperance: appropriately dressed (casually, wearing t-shirt and leggings) and appropriately groomed (recently showered) Eye Contact: good eye contact Motor Behavior: steady gait and station and no abnormal motor movements Speech: normal rate/rhythm/volume of speech Affect: euthymic affect and mood congruent with affect Mood: no depressed mood ("Good, thank you") Thought Process: goal directed thought process and + concrete thought process Thought Content: + delusions (ongoing, though fixation on delusions varies throughout the day); no hopelessness Suicidal Thoughts: denies suicidal thoughts and denies suicidal intent Homicidal Thoughts: denies homicidal thoughts Hallucinations: no auditory hallucinations and no visual hallucinations Cognition: recent memory grossly intact, attention grossly intact and language grossly intact Insight: + impaired insight Judgement: + impaired judgement Vital Signs (Past 24 Hours) Last Vital Signs Temp 36.7 C 09/12/19 06:43 Pulse 79 09/12/19 06:44 Resp 18 09/12/19 06:43 BP 153/78 H 09/12/19 06:44 Pulse Ox 95 09/03/19 05:47 Results & Data ([facility]) Current Inpatient Medications Current Inpatient Medications: Current Inpatient Medications Acetaminophen (Tylenol) 650 mg PO Q4H PRN PRN Reason: Headache or Minor Fever Stop: 10/03/19 05:41 Last Admin: 09/04/19 03:41 Dose: 650 mg Documented by: Al Hydrox/Mg Hydrox/Simethicone (Maalox) 30 ml PO Q4H PRN PRN Reason: GI Upset Stop: 10/03/19 05:41 Bismuth Subsalicylate (Kaopectate) 15 ml PO PRN PRN PRN Reason: Loose Stool Stop: 10/03/19 05:41 Docusate Sodium (Colace) 100 mg PO BID [facility] Stop: 10/05/19 08:59 Last Admin: 09/12/19 08:45 Dose: 100 mg Documented by: Hydroxyzine HCl (Vistaril) 50 mg PO HSZ PRN PRN Reason: Insomnia Stop: 10/03/19 05:41 Hydroxyzine HCl (Vistaril) 25 mg PO Q4H PRN PRN Reason: Anxiety Stop: 10/03/19 05:41 Levothyroxine Sodium (Synthroid) 75 mcg PO DAILYBB [facility] Stop: 10/03/19 07:59 Last Admin: 09/12/19 08:45 Dose: 75 mcg Documented by: [place] Carbonate (Eskalith) 450 mg PO BID [facility] Stop: 10/03/19 20:59 Last Admin: 09/12/19 08:45 Dose: 450 mg Documented by: Magnesium Hydroxide (Milk Of Magnesia) 30 ml PO DAILY PRN PRN Reason: Constipation Stop: 10/03/19 05:41 Miscellaneous (Remove Nicoderm Patch) 1 ea N/A DAILY@0859 [facility] Stop: 10/04/19 08:58 Last Admin: 09/11/19 08:42 Dose: 1 ea Documented by: Nicotine (Nicoderm Cq) 7 mg TD QAM [facility] Stop: 10/03/19 16:29 Last Admin: 09/12/19 08:46 Dose: 7 mg Documented by: Paliperidone (Invega) 6 mg PO DAILY [facility] Stop: 10/03/19 08:59 Last Admin: 09/12/19 08:45 Dose: 6 mg Documented by: Paliperidone Palmitate (Invega Sustenna) 234 mg IM Q4WK [facility] Stop: 10/17/19 08:59 Simvastatin (Zocor) 10 mg PO HS CLARISA Stop: 10/03/19 21:59 Last Admin: 09/11/19 20:42 Dose: 10 mg Documented by: Sodium Chloride ([place] Nasal) 1 - 2 sprays NA PRN PRN PRN Reason: Nasal Dryness/Congestion Stop: 10/03/19 05:41 Mental Health & Subst Abuse Tx Psychiatrist Name of Psychiatrist: Jackelin Psychiatrist's Date of Appointment with Psychiatrist: 09/14/19 Time of Appointment with Psychiatrist: 11:00 a.m. Psychiatric Appointment Comment: [id number] [facility] [place] [id number] Therapist Name of Therapist: None Tire Shop Manager Name of Tire Shop Manager: [employer] Lizzy Pandey Phone Number for Tire Shop Manager: [phone] Post Discharge Appointments Primary Care Physician Name Of Family Doctor: [facility] Primary Care Provider Appointment Comment: [id number] [facility], [address], [place] [address]
[2019-09-12] MEDS: SIMVASTATIN 10 MG TAB PO SCH (21:37)
[2019-09-13] MEDS: LEVOTHYROXINE SODIUM 75 MCG TABLET PO SCH (08:24)
[2019-09-13] MEDS: LITHIUM CARBONATE 450 MG TABCR PO SCH ×2 (09:32→20:45)
[2019-09-13] MEDS: PALIPERIDONE 3 MG TABCR PO SCH (09:32)
[2019-09-13] MEDS: DOCUSATE SODIUM 100 MG CAP PO SCH ×2 (09:32→20:46)
[2019-09-13] MEDS: NICOTINE 7 MG/24 HR TDSY TD SCH (09:36)
--- NOTE | 2019-09-13 14:39 | Psychiatric Progress Note ---
Date of Service September 13, 2019 Impression / Recommendations Impression 63-year-old Bangladeshi female with schizoaffective disorder bipolar type admitted on a 302 commitment 4 days after being discharged from this unit on 08/29 after a 27-day hospitalization. She was discharged on a 304 IOC, and return to the ER later that same day, after police were called due to bizarre behavior at a local grocery store, but was again discharged. Readmitted with psychotic symptoms including paranoia, delusions of persecution (that family and people at the jail were trying to poison/harm her), refusing to eat with hypokalemia, homelessness, delusions that she owns a home, and inability to provide for her own basic needs. Additionally, family members who petitioned reported she made suicidal statements and walked into traffic, and reported delusions that her son had stabbed her in her intestines were hanging out. They also reported she had been noncompliant with oral psychotropic medications, and although her casey saw operator assisted her to fill these on the day of discharge, she did not bring them into the hospital with her and says she does not know where they are. She is repeatedly demonstrated complete inability to provide for her own basic needs outside of the hospital, including health, welfare, jail, food, and safety. Inpatient treatment is medically necessary due to the severity of her symptoms and risk for suicide if discharged. She is now on a 304 involuntary commitment, and we are recommending long-term inpatient treatment at the [facility]. Referral packet was sent for review on 09/07/2019. (1) Schizoaffective disorder, bipolar type: 09/03/19 -The patient has been admitted to the locked, secured behavioral health unit and has been placed in special observation room. She is also being monitored with close observations and every 15-minute direct observation. When more stable she will be actively encouraged to participate in individual, group, and activity therapies. We will also attempt to involve the family if the patient permits us to and if they agree. - Resuming medications as was rx'd at time of discharge on 08/29 including po Invega, lithium, and Sustenna. 09/03 -continue current medications, patient is taking them. -File for 306 conversion hearing to be held 09/06/2019. She will likely need referral to the [facility] due to the need for long-term inpatient treatment. -Reviewed FLP and FG from recent hospitalization 08/07/2019: Cholesterol 221, glucose 109, other values within normal limits. -Attempt to involve family is able; son-in-law Poli is petitioner and was involved in hospitalization so we will ask staff to contact him for collateral information and to determine the family's ability to assist with discharge planning and housing. She has very limited supports in the community and if they are unable to assist her with housing and care, she will likely require long-term hospitalization. -Continue private room for psychosis. 09/04 - Continue current medication regimen - patient has been compliant with medications in this structured environment - 306 conversion hearing scheduled for 09/05 - Meeting with casey saw operator today to discuss treatment options and continue attempts to build rapport - Referral to [facility] is being recommended at this time has patient has repeatedly demonstrated an inability to care for self and provide for basic needs without the support of a structured psychiatric setting. - EKG (WNL). PPD was refused by patient - CXR ordered 09/05 -306 hearing held and patient converted to a 304 involuntary commitment. -Referred to [facility] for long-term inpatient treatment, as patient is severely ill and unable to provide for her own basic needs as a result of her mental illness, and treatment for 27 days on our acute unit was insufficient for successful transition to the community. She was at [facility] for 4 months within the past year, and did respond to treatment there, so returned to the [facility] as recommended for long-term treatment of SPMI. -EKG and chest x-ray completed for state hospital referral. 09/06 - Continue current medication regimen - Referral to [facility] is being prepared, approval was [place] received from the county - Ongoing attempt to build rapport with psychiatric casey saw operator 09/07 - 09/09 - Continue current medication regimen - Referral sent to [facility] on 09/07/2019 for recommended long- term psychiatric hospitalization based on chronic medication/treatment non- compliance and repeated demonstration of inability to care for self outside of a structured psychiatric setting. - Pt was informed of [facility] referral today during encounter 09/10 - Continue current medication regimen - [facility] referral sent on 09/07/2019 - requesting updates regarding when case is anticipated to be reviewed and ensure information was received - Pt continues to demand to leave, unable to appreciated the severity of her condition. Ongoing concern related to patient's repeated demonstration of inability to care for self outside of a structured psychiatric setting. 09/11 - Continue current medication regimen - Awaiting acceptance at [facility]. Ongoing concern related to patient's repeated demonstration of inability to care for self outside of a structured psychiatric setting. 09/12 - Pt due for next injection of Invega Sustenna 234mg IM on 09/16. Oral supplementation was continued from last hospitalization due to concern for ongoing instability with regard to psychotic symptoms. In preparation for first maintenance dose, will reduce oral supplementation to 3mg qAM and discontinue oral paliperidone on 09/16. Continue lithium 450mg BID unchanged. - Awaiting replay for [facility] regarding referral. Ongoing concern related to patient's repeated demonstration of inability to care for self outside of a structured psychiatric setting. Pt has consistently not been agreeable to diversion planning as a result of fixed delusional beliefs that she has family support, that she has a house to live in, and that she has a lot of money - none of these statements confirmed to be true. (2) Noncompliance with medication regimen: 09/02 - Unable to clarify if pt has been taking her medications regularly in the days since discharge. She at first indicated that she was not then indicated the medications arein a bag of hers but did not indicate actually taking them. The patient also claims to not recall the names of any of her medications and reports that she does not have the conditions for which her known medications are clearly intended. Possible cognitive impairments. might be impacting medication compliance. language impairments with pt not speaking Canadian impacting compliance concerns. -The patient's underlying psychiatric condition will be actively treated. It is hoped that with treatment we will be able to improve medication compliance and also address aspects that impact compliance and improve this with appropriate interventions. CANTOR form of Invega to be continued at this time, next dose not due for another 2 weeks. Pt took meds this morning that were offered to her but given her extensive non compliance prior to, during and seeming after recent admission and lack of insight to her dx and presentation and indicating that recent hospitalization was quite helpful for her and her indicating wanting to continue her medications as was rx' at end of recent [facility] admission and were instructed to take at that discharge. I am in favor of medication over objection if pt objects to taking her medication during the course of this admission or if it is determined that pt is checking or not actually taking her medications. (3) Homeless: 09/03/19 -In the past, the patient has lived with family members. However, this is clearly not an option at the present time. The context is that the patient reportedly was in group home for approximately a year because of her making terroristic threats against the family. While it does seem clear that the family wants to help protect her, they are unable to safely provide jail. Given the patient's history of neglect of self-care, medication nonadherence, and possible cognitive deficits we are going to investigate structured residential programs as part of our discharge planning. 09/03 -patient has consistently refused assistance with housing, insisting that she has a house in [place], although has not been able to provide an address and her family states this is not true. 09/06 - Patient's grandson called unit yesterday to provide additional information, stating the patient has been homeless for quite some time and there is no valid address for the patient (4) Involuntary commitment: 09/03 -patient on a 304 IOC, readmitted on a 302. We will file for a 306 conversion hearing. 09/04 - 306 hearing scheduled for 09/05; anticipate referral to [facility]. 09/05 -306 conversion granted, now here on a 304 involuntary commitment. 09/07 - Referral packet sent to [facility] on 09/06 (5) Nicotine abuse: 09/02 - Nicotine Patch 7mg topical daily resumed, and smoking cessation to be done when pt is in more apposite mental state to do so Inventory Assets Strengths: concerned family members, pleasant on approach Needs: stable housing, improved compliance to medication and treatment plan Risk Factors Assessment Male: No : No Do You Have Access To A Gun?: No Health Problems: No Mental Health Diagnoses: Yes Substance Use Disorders: No Previous Attempt: Yes (Per family, patient denies) Previous Psychiatric Hospitalization: Yes Hopelessness: No Smoker: Yes Protective Factors Assessment : No Responsible for Young Children: No Employed: No Stable Relationships: No Supportive Family: No Good Rapport with Provider: No Interval History Identifying Information ANDREW CYR is a 63-year-old F who currently is homeless in [facility], has a history of schizoaffective disorder, bipolar type, and was admitted on 09/03/19 05:42 on a 302 involuntary commitment for psychosis, suicidal ideation, inability to provide for basic needs, and medication noncompliance. Chief Complaint "I'm good." Review of Systems Notes Constitutional: denied Cardiovascular: denied Respiratory: denied Gastrointestinal: denied Neurological: denied Psychiatric: denies symptoms other than stated above Total of at least 10 systems reviewed, pertinent positives as above and in HPI. Sleep Information Total Hours of Sleep: 6.5 Sleep Comments: pt on q-15 minute checks Meal Information Percent Meal Consumed - Breakfast: 100 Percent Meal Consumed - Lunch: 100 Percent Meal Consumed - Dinner: 100 Nutrition Comment: documented from the pt. meal record Subjective Subjective Patient was seen & assessed and interval progress reviewed with treatment team. Staff report the patient has been cooperative on the unit, but continues to be isolative. Referral sent to [facility], awaiting updates from their treatment team review. Pt was seen today to assess progress since admission. [place]an-Canadian conversation was held with assistance from [employer] interpretive [facility] #[id number]. Prior to our interaction, the patient was observed to be laying in bed, staring at the window, speaking to herself with associated hand gestures. When patient realized this provider was in the room, she folded her hands together as if she was praying. Pt reports she is " good" today. She denies any questions or concerns today. Pt was asked who she was talking to prior to our encounter, and she states "I was praying." Pt denies any physical concerns at this time, and was specifically asked about nausea/vomiting, abdominal pain, and difficulty with bowel movements. Pt stated "No, and I would tell that to my doctor." Pt denies fatigue. She reports agreement with tapering her oral paliperidone, and continues to verbalize that she is agreeable with her next injection of Invega Sustenna scheduled for 09/16. Pt denies desire for staff to print off any activity booklets or other resources in Cape Verdean for her to utilize. She denied other needs or concerns today. Physical Exam Psychiatric Orientation: alert, oriented x 3 and cooperative (superifically pleasant) Apperance: appropriately dressed (casually, in t-shirt and leggings), + disheveled (hair appearing unkempt, patient was awoken from rest) and appeared stated age Eye Contact: good eye contact Motor Behavior: steady gait and station and no abnormal motor movements Speech: normal rate/rhythm/volume of speech Affect: + blunted affect (appearing fatigued today) Mood: no depressed mood ("I'm good") Thought Process: goal directed thought process and + concrete thought process Thought Content: + delusions Suicidal Thoughts: denies suicidal thoughts and denies suicidal intent Homicidal Thoughts: denies homicidal thoughts Hallucinations: no auditory hallucinations and no visual hallucinations Patient denies, though she is observed to be talking to herself in her room prior to our interaction. Cognition: attention grossly intact and language grossly intact Insight: + impaired insight Judgement: + impaired judgement Vital Signs (Past 24 Hours) Last Vital Signs Temp 36.6 C 09/13/19 06:32 Pulse 75 09/13/19 06:33 Resp 18 09/13/19 06:32 BP 158/77 H 09/13/19 06:33 Pulse Ox 95 09/03/19 05:47 Results & Data ([facility]) Current Inpatient Medications Current Inpatient Medications: Current Inpatient Medications Acetaminophen (Tylenol) 650 mg PO Q4H PRN PRN Reason: Headache or Minor Fever Stop: 10/03/19 05:41 Last Admin: 09/04/19 03:41 Dose: 650 mg Documented by: Al Hydrox/Mg Hydrox/Simethicone (Maalox) 30 ml PO Q4H PRN PRN Reason: GI Upset Stop: 10/03/19 05:41 Bismuth Subsalicylate (Kaopectate) 15 ml PO PRN PRN PRN Reason: Loose Stool Stop: 10/03/19 05:41 Docusate Sodium (Colace) 100 mg PO BID [facility] Stop: 10/05/19 08:59 Last Admin: 09/13/19 09:32 Dose: 100 mg Documented by: Hydroxyzine HCl (Vistaril) 50 mg PO HSZ PRN PRN Reason: Insomnia Stop: 10/03/19 05:41 Hydroxyzine HCl (Vistaril) 25 mg PO Q4H PRN PRN Reason: Anxiety Stop: 10/03/19 05:41 Levothyroxine Sodium (Synthroid) 75 mcg PO DAILYBB [facility] Stop: 10/03/19 07:59 Last Admin: 09/13/19 08:24 Dose: 75 mcg Documented by: [place] Carbonate (Eskalith) 450 mg PO BID CLARISA Stop: 10/03/19 20:59 Last Admin: 09/13/19 09:32 Dose: 450 mg Documented by: Magnesium Hydroxide (Milk Of Magnesia) 30 ml PO DAILY PRN PRN Reason: Constipation Stop: 10/03/19 05:41 Miscellaneous (Remove Nicoderm Patch) 1 ea N/A DAILY@0859 CLARISA Stop: 10/04/19 08:58 Last Admin: 09/13/19 09:36 Dose: 1 ea Documented by: Nicotine (Nicoderm Cq) 7 mg TD QAM CLARISA Stop: 10/03/19 16:29 Last Admin: 09/13/19 09:36 Dose: 7 mg Documented by: Paliperidone (Invega) 3 mg PO DAILY CLARISA Stop: 09/16/19 09:30 Paliperidone Palmitate (Invega Sustenna) 234 mg IM Yancey@0900 ONE Stop: 09/17/19 09:01 Simvastatin (Zocor) 10 mg PO HS CALRISA Stop: 10/03/19 21:59 Last Admin: 09/12/19 21:37 Dose: 10 mg Documented by: Sodium Chloride ([place]oul[place] Nasal) 1 - 2 sprays NA PRN PRN PRN Reason: Nasal Dryness/Congestion Stop: 10/03/19 05:41 Mental Health & Subst Abuse Tx Psychiatrist Name of Psychiatrist: Jackelin Psychiatrist's Date of Appointment with Psychiatrist: 09/14/19 Time of Appointment with Psychiatrist: 11:00 a.m. Psychiatric Appointment Comment: [phone] [place] [address] Therapist Name of Therapist: None Harness Brusher Name of Harness Brusher: [facility] Lizzy Pandey Phone Number for Harness Brusher: [phone] Post Discharge Appointments Primary Care Physician Name Of Family Doctor: [facility] Primary Care Provider Appointment Comment: [id number] [facility], [address], [place] [address]
[2019-09-13] MEDS: SIMVASTATIN 10 MG TAB PO SCH (20:46)
[2019-09-14] MEDS: LEVOTHYROXINE SODIUM 75 MCG TABLET PO SCH (08:24)
[2019-09-14] MEDS: NICOTINE 7 MG/24 HR TDSY TD SCH (08:25)
[2019-09-14] MEDS: LITHIUM CARBONATE 450 MG TABCR PO SCH ×2 (08:25→21:08)
[2019-09-14] MEDS: PALIPERIDONE 3 MG TABCR PO SCH (08:25)
[2019-09-14] MEDS: DOCUSATE SODIUM 100 MG CAP PO SCH ×2 (08:25→21:08)
--- NOTE | 2019-09-14 09:32 | Psychiatric Progress Note ---
Date of Service September 14, 2019 Impression / Recommendations Impression 63-year-old [place] female with schizoaffective disorder bipolar type admitted on a 302 commitment 4 days after being discharged from this unit on 08/29 after a 27-day hospitalization. She was discharged on a 304 IOC, and return to the ER later that same day, after police were called due to bizarre behavior at a local grocery store, but was again discharged. Readmitted with psychotic symptoms including paranoia, delusions of persecution (that family and people at the retirement were trying to poison/harm her), refusing to eat with hypokalemia, homelessness, delusions that she owns a home, and inability to provide for her own basic needs. Additionally, family members who petitioned reported she made suicidal statements and walked into traffic, and reported delusions that her son had stabbed her in her intestines were hanging out. They also reported she had been noncompliant with oral psychotropic medications, and although her supportive employment case manager assisted her to fill these on the day of discharge, she did not bring them into the hospital with her and says she does not know where they are. She is repeatedly demonstrated complete inability to provide for her own basic needs outside of the hospital, including health, welfare, retirement, food, and safety. Inpatient treatment is medically necessary due to the severity of her symptoms and risk for suicide if discharged. She is now on a 304 involuntary commitment, and we are recommending long-term inpatient treatment at the [facility]. Referral packet was sent for review on 09/07/2019. (1) Schizoaffective disorder, bipolar type: 09/03/19 -The patient has been admitted to the locked, secured behavioral health unit and has been placed in special observation room. She is also being monitored with close observations and every 15-minute direct observation. When more stable she will be actively encouraged to participate in individual, group, and activity therapies. We will also attempt to involve the family if the patient permits us to and if they agree. - Resuming medications as was rx'd at time of discharge on 08/29 including po Invega, lithium, and Sustenna. 09/03 -continue current medications, patient is taking them. -File for 306 conversion hearing to be held 09/06/2019. She will likely need referral to the [facility] due to the need for long-term inpatient treatment. -Reviewed FLP and FG from recent hospitalization 08/07/2019: Cholesterol 221, glucose 109, other values within normal limits. -Attempt to involve family is able; son-in-law Poli is petitioner and was involved in hospitalization so we will ask staff to contact him for collateral information and to determine the family's ability to assist with discharge planning and housing. She has very limited supports in the community and if they are unable to assist her with housing and care, she will likely require long-term hospitalization. -Continue private room for psychosis. 09/04 - Continue current medication regimen - patient has been compliant with medications in this structured environment - 306 conversion hearing scheduled for 09/05 - Meeting with supportive employment case manager today to discuss treatment options and continue attempts to build rapport - Referral to [facility] is being recommended at this time has patient has repeatedly demonstrated an inability to care for self and provide for basic needs without the support of a structured psychiatric setting. - EKG (WNL). PPD was refused by patient - CXR ordered 09/05 -306 hearing held and patient converted to a 304 involuntary commitment. -Referred to [facility] for long-term inpatient treatment, as patient is severely ill and unable to provide for her own basic needs as a result of her mental illness, and treatment for 27 days on our acute unit was insufficient for successful transition to the community. She was at [facility] for 4 months within the past year, and did respond to treatment there, so returned to the [facility] hospital as recommended for long-term treatment of SPMI. -EKG and chest x-ray completed for state hospital referral. 09/06 - Continue current medication regimen - Referral to [facility] is being prepared, approval was reportedly received from the county - Ongoing attempt to build rapport with psychiatric supportive employment case manager 09/07 - 09/09 - Continue current medication regimen - Referral sent to [facility] on 09/07/2019 for recommended long- term psychiatric hospitalization based on chronic medication/treatment non- compliance and repeated demonstration of inability to care for self outside of a structured psychiatric setting. - Pt was informed of [facility] referral today during encounter 09/10 - Continue current medication regimen - [place] referral sent on 09/07/2019 - requesting updates regarding when case is anticipated to be reviewed and ensure information was received - Pt continues to demand to leave, unable to appreciated the severity of her condition. Ongoing concern related to patient's repeated demonstration of inability to care for self outside of a structured psychiatric setting. 09/11 - Continue current medication regimen - Awaiting acceptance at [facility]. Ongoing concern related to patient's repeated demonstration of inability to care for self outside of a structured psychiatric setting. 09/12 - 09/13 - Pt due for next injection of Invega Sustenna 234mg IM on 09/16. Oral supplementation was continued from last hospitalization due to concern for ongoing instability with regard to psychotic symptoms. In preparation for first maintenance dose, will reduce oral supplementation to 3mg qAM and discontinue oral paliperidone on 09/16. Continue lithium 450mg BID unchanged. - Awaiting replay for [facility] regarding referral. Ongoing concern related to patient's repeated demonstration of inability to care for self outside of a structured psychiatric setting. Pt has consistently not been agreeable to diversion planning as a result of fixed delusional beliefs that she has family support, that she has a house to live in, and that she has a lot of money - none of these statements confirmed to be true. (2) Noncompliance with medication regimen: 09/02 - Unable to clarify if pt has been taking her medications regularly in the days since discharge. She at first indicated that she was not then indicated the medications arein a bag of hers but did not indicate actually taking them. The patient also claims to not recall the names of any of her medications and reports that she does not have the conditions for which her known medications are clearly intended. Possible cognitive impairments. might be impacting medication compliance. language impairments with pt not speaking Honduran impacting compliance concerns. -The patient's underlying psychiatric condition will be actively treated. It is hoped that with treatment we will be able to improve medication compliance and also address aspects that impact compliance and improve this with appropriate interventions. CANTOR form of Invega to be continued at this time, next dose not due for another 2 weeks. Pt took meds this morning that were offered to her but given her extensive non compliance prior to, during and seeming after recent admission and lack of insight to her dx and presentation and indicating that recent hospitalization was quite helpful for her and her indicating wanting to continue her medications as was rx' at end of recent [facility] admission and were instructed to take at that discharge. I am in favor of medication over objection if pt objects to taking her medication during the course of this admission or if it is determined that pt is checking or not actually taking her medications. (3) Homeless: 09/03/19 -In the past, the patient has lived with family members. However, this is clearly not an option at the present time. The context is that the patient reportedly was in skilled nursing for approximately a year because of her making terroristic threats against the family. While it does seem clear that the family wants to help protect her, they are unable to safely provide retirement. Given the patient's history of neglect of self-care, medication nonadherence, and possible cognitive deficits we are going to investigate structured residential programs as part of our discharge planning. 09/03 -patient has consistently refused assistance with housing, insisting that she has a house in [place], although has not been able to provide an address and her family states this is not true. 09/06 - Patient's grandson called unit yesterday to provide additional information, stating the patient has been homeless for quite some time and there is no valid address for the patient (4) Involuntary commitment: 09/03 -patient on a 304 IOC, readmitted on a 302. We will file for a 306 conversion hearing. 09/04 - 306 hearing scheduled for 09/05; anticipate referral to [facility]. 09/05 -306 conversion granted, now here on a 304 involuntary commitment. 09/07 - Referral packet sent to [facility] on 09/06 (5) Nicotine abuse: 09/02 - Nicotine Patch 7mg topical daily resumed, and smoking cessation to be done when pt is in more apposite mental state to do so Inventory Assets Strengths: concerned family members, pleasant on approach Needs: stable housing, improved compliance to medication and treatment plan Risk Factors Assessment Male: No : No Do You Have Access To A Gun?: No Health Problems: No Mental Health Diagnoses: Yes Substance Use Disorders: No Previous Attempt: Yes (Per family, patient denies) Previous Psychiatric Hospitalization: Yes Hopelessness: No Smoker: Yes Protective Factors Assessment : No Responsible for Young Children: No Employed: No Stable Relationships: No Supportive Family: No Good Rapport with Provider: No Interval History Identifying Information ANDREW CYR is a 63-year-old F who currently is homeless in [facility], has a history of schizoaffective disorder, bipolar type, and was admitted on 09/03/19 05:42 on a 302 involuntary commitment for psychosis, suicidal ideation, inability to provide for basic needs, and medication noncompliance. Chief Complaint "Good. Thank you." Review of Systems Notes Constitutional: denied Cardiovascular: denied Respiratory: denied Gastrointestinal: denied Neurological: denied Psychiatric: denies symptoms other than stated above Total of at least 10 systems reviewed, pertinent positives as above and in HPI. Sleep Information Total Hours of Sleep: 6 Sleep Comments: pt on q-15 minute checks Meal Information Percent Meal Consumed - Breakfast: 100 Percent Meal Consumed - Lunch: 100 Percent Meal Consumed - Dinner: 100 Nutrition Comment: documented from the pt. meal record Subjective Subjective Patient was seen & assessed and interval progress reviewed with nursing and social work. Staff report the patient has continued to demonstrate appropriate behavior in this supervised setting, but continues to be largely isolative. Pt was seen today to assess progress since admission. Armenian-Honduran conversation was held with assistance from [employer] interpretive services - [facility] #[id number]. Pt reports she is "good. Thank you." She denies any new questions or concerns as it relates to her psychiatric treatment. Pt does admit she is "a little hungry" at this time. She denies any sleep issues. Pt continues to deny SI/HI, A/V hallucinations. She denies physical concerns or additional needs at this time. Physical Exam Psychiatric Orientation: alert, oriented to person, oriented to place and cooperative (superifically, tolerating brief and superficial conversations appropriately) Apperance: appropriately dressed (casually, in t-shirt and jeans), appropriately groomed and appeared stated age Eye Contact: good eye contact Motor Behavior: steady gait and station and no abnormal motor movements Speech: normal rate/rhythm/volume of speech Affect: + blunted affect (appearing somewhat fatigued ) Mood: no depressed mood ("good") Thought Process: goal directed thought process and + concrete thought process Thought Content: + delusions (fixed delusions at baseline, though less fixated on these) Suicidal Thoughts: denies suicidal thoughts Homicidal Thoughts: denies homicidal thoughts Hallucinations: no auditory hallucinations and no visual hallucinations Though ongoing observations from staff that patient is speaking to herself in her room Cognition: attention grossly intact and language grossly intact Insight: + impaired insight Judgement: + impaired judgement Vital Signs (Past 24 Hours) Last Vital Signs Temp 36.6 C 09/14/19 06:24 Pulse 72 09/14/19 06:26 Resp 18 09/14/19 06:24 BP 133/84 09/14/19 06:26 Pulse Ox 95 09/03/19 05:47 Results & Data ([facility]) Current Inpatient Medications Current Inpatient Medications: Current Inpatient Medications Acetaminophen (Tylenol) 650 mg PO Q4H PRN PRN Reason: Headache or Minor Fever Stop: 10/03/19 05:41 Last Admin: 09/04/19 03:41 Dose: 650 mg Documented by: Al Hydrox/Mg Hydrox/Simethicone (Maalox) 30 ml PO Q4H PRN PRN Reason: GI Upset Stop: 10/03/19 05:41 Bismuth Subsalicylate (Kaopectate) 15 ml PO PRN PRN PRN Reason: Loose Stool Stop: 10/03/19 05:41 Docusate Sodium (Colace) 100 mg PO BID [facility] Stop: 10/05/19 08:59 Last Admin: 09/14/19 08:25 Dose: 100 mg Documented by: Hydroxyzine HCl (Vistaril) 50 mg PO HSZ PRN PRN Reason: Insomnia Stop: 10/03/19 05:41 Hydroxyzine HCl (Vistaril) 25 mg PO Q4H PRN PRN Reason: Anxiety Stop: 10/03/19 05:41 Levothyroxine Sodium (Synthroid) 75 mcg PO DAILYBB [facility] Stop: 10/03/19 07:59 Last Admin: 09/14/19 08:24 Dose: 75 mcg Documented by: Rhodes Carbonate (Eskalith) 450 mg PO BID [facility] Stop: 10/03/19 20:59 Last Admin: 09/14/19 08:25 Dose: 450 mg Documented by: Magnesium Hydroxide (Milk Of Magnesia) 30 ml PO DAILY PRN PRN Reason: Constipation Stop: 10/03/19 05:41 Miscellaneous (Remove Nicoderm Patch) 1 ea N/A DAILY@0859 [facility] Stop: 10/04/19 08:58 Last Admin: 09/14/19 08:30 Dose: 1 ea Documented by: Nicotine (Nicoderm Cq) 7 mg TD QAM [facility] Stop: 10/03/19 16:29 Last Admin: 09/14/19 08:25 Dose: 7 mg Documented by: Paliperidone (Invega) 3 mg PO DAILY CLARISA Stop: 09/16/19 09:30 Last Admin: 09/14/19 08:25 Dose: 3 mg Documented by: Paliperidone Palmitate (Invega Sustenna) 234 mg IM Yancey@0900 ONE Stop: 09/17/19 09:01 Simvastatin (Zocor) 10 mg PO HS CLARISA Stop: 10/03/19 21:59 Last Admin: 09/13/19 20:46 Dose: 10 mg Documented by: Sodium Chloride ([place] Nasal) 1 - 2 sprays NA PRN PRN PRN Reason: Nasal Dryness/Congestion Stop: 10/03/19 05:41 Mental Health & Subst Abuse Tx Psychiatrist Name of Psychiatrist: Jackelin Psychiatrist's Date of Appointment with Psychiatrist: 09/14/19 Time of Appointment with Psychiatrist: 11:00 a.m. Psychiatric Appointment Comment: [id number] [place] [address] Therapist Name of Therapist: None Substitute Bus Driver Name of Substitute Bus Driver: [employer] Lizzy Pandey Phone Number for Substitute Bus Driver: [phone] Post Discharge Appointments Primary Care Physician Name Of Family Doctor: [facility] Primary Care Provider Appointment Comment: [id number] [facility], [address], [place] [address]
[2019-09-14] MEDS: SIMVASTATIN 10 MG TAB PO SCH (21:08)
[2019-09-15] MEDS: NICOTINE 7 MG/24 HR TDSY TD SCH (07:31)
[2019-09-15] MEDS: DOCUSATE SODIUM 100 MG CAP PO SCH ×2 (07:31→20:43)
[2019-09-15] MEDS: LITHIUM CARBONATE 450 MG TABCR PO SCH ×2 (07:31→20:44)
[2019-09-15] MEDS: LEVOTHYROXINE SODIUM 75 MCG TABLET PO SCH (07:31)
[2019-09-15] MEDS: PALIPERIDONE 3 MG TABCR PO SCH (07:31)
--- NOTE | 2019-09-15 10:06 | Psychiatric Progress Note ---
Date of Service September 15, 2019 Impression / Recommendations Impression 63-year-old Guyanese female with schizoaffective disorder bipolar type admitted on a 302 commitment 4 days after being discharged from this unit on 08/29 after a 27-day hospitalization. She was discharged on a 304 IOC, and return to the ER later that same day, after police were called due to bizarre behavior at a local grocery store, but was again discharged. Readmitted with psychotic symptoms including paranoia, delusions of persecution (that family and people at the halfway were trying to poison/harm her), refusing to eat with hypokalemia, homelessness, delusions that she owns a home, and inability to provide for her own basic needs. Additionally, family members who petitioned reported she made suicidal statements and walked into traffic, and reported delusions that her son had stabbed her in her intestines were hanging out. They also reported she had been noncompliant with oral psychotropic medications, and although her lead case manager assisted her to fill these on the day of discharge, she did not bring them into the hospital with her and says she does not know where they are. She is repeatedly demonstrated complete inability to provide for her own basic needs outside of the hospital, including health, welfare, halfway, food, and safety. Inpatient treatment is medically necessary due to the severity of her symptoms and risk for suicide if discharged. She is now on a 304 involuntary commitment, and we are recommending long-term inpatient treatment at the [facility]. Referral packet was sent for review on 09/07/2019. (1) Schizoaffective disorder, bipolar type: 09/03/19 -The patient has been admitted to the locked, secured behavioral health unit and has been placed in special observation room. She is also being monitored with close observations and every 15-minute direct observation. When more stable she will be actively encouraged to participate in individual, group, and activity therapies. We will also attempt to involve the family if the patient permits us to and if they agree. - Resuming medications as was rx'd at time of discharge on 08/29 including po Invega, lithium, and Sustenna. 09/03 -continue current medications, patient is taking them. -File for 306 conversion hearing to be held 09/06/2019. She will likely need referral to the [facility] due to the need for long-term inpatient treatment. -Reviewed FLP and FG from recent hospitalization 08/07/2019: Cholesterol 221, glucose 109, other values within normal limits. -Attempt to involve family is able; son-in-law Poli is petitioner and was involved in hospitalization so we will ask staff to contact him for collateral information and to determine the family's ability to assist with discharge planning and housing. She has very limited supports in the community and if they are unable to assist her with housing and care, she will likely require long-term hospitalization. -Continue private room for psychosis. 09/04 - Continue current medication regimen - patient has been compliant with medications in this structured environment - 306 conversion hearing scheduled for 09/05 - Meeting with lead case manager today to discuss treatment options and continue attempts to build rapport - Referral to [facility] is being recommended at this time has patient has repeatedly demonstrated an inability to care for self and provide for basic needs without the support of a structured psychiatric setting. - EKG (WNL). PPD was refused by patient - CXR ordered 09/05 -306 hearing held and patient converted to a 304 involuntary commitment. -Referred to [facility] for long-term inpatient treatment, as patient is severely ill and unable to provide for her own basic needs as a result of her mental illness, and treatment for 27 days on our acute unit was insufficient for successful transition to the community. She was at [facility] for 4 months within the past year, and did respond to treatment there, so returned to the [facility] hospital as recommended for long-term treatment of SPMI. -EKG and chest x-ray completed for state hospital referral. 09/06 - Continue current medication regimen - Referral to [facility] is being prepared, approval was reportedly received from the county - Ongoing attempt to build rapport with psychiatric lead case manager 09/07 - 09/09 - Continue current medication regimen - Referral sent to [facility] on 09/07/2019 for recommended long- term psychiatric hospitalization based on chronic medication/treatment non- compliance and repeated demonstration of inability to care for self outside of a structured psychiatric setting. - Pt was informed of [facility] referral today during encounter 09/10 - Continue current medication regimen - [facility] referral sent on 09/07/2019 - requesting updates regarding when case is anticipated to be reviewed and ensure information was received - Pt continues to demand to leave, unable to appreciated the severity of her condition. Ongoing concern related to patient's repeated demonstration of inability to care for self outside of a structured psychiatric setting. 09/11 - Continue current medication regimen - Awaiting acceptance at [facility]. Ongoing concern related to patient's repeated demonstration of inability to care for self outside of a structured psychiatric setting. 09/12 - 09/14 - Pt due for next injection of Invega Sustenna 234mg IM on 09/16. Oral supplementation was continued from last hospitalization due to concern for ongoing instability with regard to psychotic symptoms. In preparation for first maintenance dose, will reduce oral supplementation to 3mg qAM and discontinue oral paliperidone on 09/16. Continue lithium 450mg BID unchanged. - Awaiting replay for [facility] regarding referral. Ongoing concern related to patient's repeated demonstration of inability to care for self outside of a structured psychiatric setting. Pt has consistently not been agreeable to diversion planning as a result of fixed delusional beliefs that she has family support, that she has a house to live in, and that she has a lot of money - none of these statements confirmed to be true. (2) Noncompliance with medication regimen: 09/02 - Unable to clarify if pt has been taking her medications regularly in the days since discharge. She at first indicated that she was not then indicated the medications arein a bag of hers but did not indicate actually taking them. The patient also claims to not recall the names of any of her medications and reports that she does not have the conditions for which her known medications are clearly intended. Possible cognitive impairments. might be impacting medication compliance. language impairments with pt not speaking Congolese impacting compliance concerns. -The patient's underlying psychiatric condition will be actively treated. It is hoped that with treatment we will be able to improve medication compliance and also address aspects that impact compliance and improve this with appropriate interventions. CANTOR form of Invega to be continued at this time, next dose not due for another 2 weeks. Pt took meds this morning that were offered to her but given her extensive non compliance prior to, during and seeming after recent admission and lack of insight to her dx and presentation and indicating that recent hospitalization was quite helpful for her and her indicating wanting to continue her medications as was rx' at end of recent [facility] admission and were instructed to take at that discharge. I am in favor of medication over objection if pt objects to taking her medication during the course of this admission or if it is determined that pt is checking or not actually taking her medications. (3) Homeless: 09/03/19 -In the past, the patient has lived with family members. However, this is clearly not an option at the present time. The context is that the patient reportedly was in long term for approximately a year because of her making terroristic threats against the family. While it does seem clear that the family wants to help protect her, they are unable to safely provide halfway. Given the patient's history of neglect of self-care, medication nonadherence, and possible cognitive deficits we are going to investigate structured residential programs as part of our discharge planning. 09/03 -patient has consistently refused assistance with housing, insisting that she has a house in [place], although has not been able to provide an address and her family states this is not true. 09/06 - Patient's grandson called unit yesterday to provide additional information, stating the patient has been homeless for quite some time and there is no valid address for the patient (4) Involuntary commitment: 09/03 -patient on a 304 IOC, readmitted on a 302. We will file for a 306 conversion hearing. 09/04 - 306 hearing scheduled for 09/05; anticipate referral to [facility]. 09/05 -306 conversion granted, now here on a 304 involuntary commitment. 09/07 - Referral packet sent to [facility] on 09/06 (5) Nicotine abuse: 09/02 - Nicotine Patch 7mg topical daily resumed, and smoking cessation to be done when pt is in more apposite mental state to do so Inventory Assets Strengths: concerned family members, pleasant on approach Needs: stable housing, improved compliance to medication and treatment plan Risk Factors Assessment Male: No : No Do You Have Access To A Gun?: No Health Problems: No Mental Health Diagnoses: Yes Substance Use Disorders: No Previous Attempt: Yes (Per family, patient denies) Previous Psychiatric Hospitalization: Yes Hopelessness: No Smoker: Yes Protective Factors Assessment : No Responsible for Young Children: No Employed: No Stable Relationships: No Supportive Family: No Good Rapport with Provider: No Interval History Identifying Information ANDREW CYR is a 63-year-old F who currently is homeless in [facility], has a history of schizoaffective disorder, bipolar type, and was admitted on 09/03/19 05:42 on a 302 involuntary commitment for psychosis, suicidal ideation, inability to provide for basic needs, and medication noncompliance. Chief Complaint "Ok." Review of Systems Notes Constitutional: denied Cardiovascular: denied Respiratory: denied Gastrointestinal: denied Neurological: denied Psychiatric: denies symptoms other than stated above Total of at least 10 systems reviewed, pertinent positives as above and in HPI. Sleep Information Total Hours of Sleep: 5.5 Sleep Comments: andrew came out to the nurses station and pleasantly requested a soda from the fridge at 0420 Meal Information Percent Meal Consumed - Breakfast: 100 Percent Meal Consumed - Lunch: 100 Percent Meal Consumed - Dinner: 100 Nutrition Comment: documented from the pt. meal record Subjective Subjective Patient was seen & assessed and interval progress reviewed with treatment team. Staff report the patient has been cooperative with staff, but still largely isolative. She continues to take medication and has verbalized agreement with getting her first maintenance injection of Invega Sustenna on 09/16. Pt was seen today to assess progress since admission. Barbadian-Congolese conversation was conducted with assistance from [employer] interpretive service - Delmer #[id number]. Patient reports that she is "okay." She states she slept okay last evening and denied any acute concerns. Patient continues to deny any physical symptoms, this provider has been consistently asking about abdominal pain/discomfort, nausea vomiting, and change in bowel habits as patient has consistently verbalized concern for a hernia. Patient does state her only question is, "Um, just wondering when I am going to get out." This provider again explained to the patient that the plan at this time was for discharge to the [facility] hospital. Patient responded much more calmly than anticipated, stating "okay. So I go to the [facility]?" We again discussed estimated length of stay of 20 to 40 days as patient's case has yet to be reviewed and acceptance is pending. Patient responds only by saying "okay." When later asked about any issues patient would like to discuss, she states "Um, no. I mean I have no problem. I am confused about, when I said I have a surgery coming up. I think that surgery would be able to be done here." We discussed the complications with this issue and patient again was asked about any physical concerns that would be consistent with her reported hernia, which she denied. During this conversation, patient was observed by this provider to be turning her head over her shoulder, away from the line of conversation with this provider and the senior economist, and whispering as if she was speaking to someone else in the room. When patient was asked about this behavior and asked if there was anyone joining us, she becomes acutely irritable repeatedly stating "no, no, no, no, no, no. There is no one here. I am done. Thank you for your services." Patient then walked away from the conversation and into her bathroom. Physical Exam Psychiatric Orientation: alert, oriented to person and oriented to place Apperance: appropriately dressed (Casually dressed, wearing a T-shirt and jea ns), appropriately groomed (recently showered) and appeared stated age Eye Contact: good eye contact Motor Behavior: steady gait and station and no abnormal motor movements Speech: normal rate/rhythm/volume of speech Affect: + blunted affect (For the majority of encounter) and + irritable affect Mood: no depressed mood ("Okay") Thought Process: goal directed thought process and + concrete thought process Thought Content: + delusions Suicidal Thoughts: denies suicidal thoughts and denies suicidal intent Homicidal Thoughts: denies homicidal thoughts Hallucinations: no auditory hallucinations and no visual hallucinations Patient denies, though she was observed to be speaking over her shoulder as if having a separate conversation with an unseen individual. Cognition: attention grossly intact and language grossly intact Estimated Intelligence: consistent with education level Insight: + severely impaired insight Judgement: + severely impaired judgement Vital Signs (Past 24 Hours) Last Vital Signs Temp 36.8 C 09/15/19 06:34 Pulse 67 09/15/19 06:35 Resp 18 09/15/19 06:34 BP 148/88 H 09/15/19 06:35 Pulse Ox 95 09/03/19 05:47 Results & Data ([facility]) Current Inpatient Medications Current Inpatient Medications: Current Inpatient Medications Acetaminophen (Tylenol) 650 mg PO Q4H PRN PRN Reason: Headache or Minor Fever Stop: 10/03/19 05:41 Last Admin: 09/04/19 03:41 Dose: 650 mg Documented by: Al Hydrox/Mg Hydrox/Simethicone (Maalox) 30 ml PO Q4H PRN PRN Reason: GI Upset Stop: 10/03/19 05:41 Bismuth Subsalicylate (Kaopectate) 15 ml PO PRN PRN PRN Reason: Loose Stool Stop: 10/03/19 05:41 Docusate Sodium (Colace) 100 mg PO BID [facility] Stop: 10/05/19 08:59 Last Admin: 09/15/19 07:31 Dose: 100 mg Documented by: Hydroxyzine HCl (Vistaril) 50 mg PO HSZ PRN PRN Reason: Insomnia Stop: 10/03/19 05:41 Hydroxyzine HCl (Vistaril) 25 mg PO Q4H PRN PRN Reason: Anxiety Stop: 10/03/19 05:41 Levothyroxine Sodium (Synthroid) 75 mcg PO DAILYBB [facility] Stop: 10/03/19 07:59 Last Admin: 09/15/19 07:31 Dose: 75 mcg Documented by: [place] Carbonate (Eskalith) 450 mg PO BID [facility] Stop: 10/03/19 20:59 Last Admin: 09/15/19 07:31 Dose: 450 mg Documented by: Magnesium Hydroxide (Milk Of Magnesia) 30 ml PO DAILY PRN PRN Reason: Constipation Stop: 10/03/19 05:41 Miscellaneous (Remove Nicoderm Patch) 1 ea N/A DAILY@0859 [facility] Stop: 10/04/19 08:58 Last Admin: 09/15/19 07:36 Dose: 1 ea Documented by: Nicotine (Nicoderm Cq) 7 mg TD QAM [facility] Stop: 10/03/19 16:29 Last Admin: 09/15/19 07:31 Dose: 7 mg Documented by: Paliperidone (Invega) 3 mg PO DAILY [facility] Stop: 09/16/19 09:30 Last Admin: 09/15/19 07:31 Dose: 3 mg Documented by: Paliperidone Palmitate (Invega Sustenna) 234 mg IM [place]@0900 [facility] Stop: 09/17/19 09:01 Simvastatin (Zocor) 10 mg PO HS [facility] Stop: 10/03/19 21:59 Last Admin: 09/14/19 21:08 Dose: 10 mg Documented by: Sodium Chloride ([place] Nasal) 1 - 2 sprays NA PRN PRN PRN Reason: Nasal Dryness/Congestion Stop: 10/03/19 05:41 Mental Health & Subst Abuse Tx Psychiatrist Name of Psychiatrist: Jackelin Psychiatrist's Date of Appointment with Psychiatrist: 09/14/19 Time of Appointment with Psychiatrist: 11:00 a.m. Psychiatric Appointment Comment: [id number] [facility] [place] [id number] Therapist Name of Therapist: None [employer] Name of [employer]: [employer] [facility] - Lizzy Pandey Phone Number for [employer]: [phone] Post Discharge Appointments Primary Care Physician Name Of Family Doctor: [facility] Primary Care Provider Appointment Comment: [id number] [facility], [address], [place] [address]
[2019-09-15] MEDS: SIMVASTATIN 10 MG TAB PO SCH (20:44)
[2019-09-16] MEDS: NICOTINE 7 MG/24 HR TDSY TD SCH (08:33)
[2019-09-16] MEDS: LEVOTHYROXINE SODIUM 75 MCG TABLET PO SCH (08:33)
[2019-09-16] MEDS: LITHIUM CARBONATE 450 MG TABCR PO SCH ×2 (08:34→20:51)
[2019-09-16] MEDS: PALIPERIDONE 3 MG TABCR PO SCH (08:34)
[2019-09-16] MEDS: DOCUSATE SODIUM 100 MG CAP PO SCH ×2 (08:34→20:50)
--- NOTE | 2019-09-16 15:04 | Psychiatric Progress Note ---
Date of Service September 16, 2019 Impression / Recommendations Impression 63-year-old Tristanian female with schizoaffective disorder bipolar type admitted on a 302 commitment 4 days after being discharged from this unit on 08/29 after a 27-day hospitalization. She was discharged on a 304 IOC, and return to the ER later that same day, after police were called due to bizarre behavior at a local grocery store, but was again discharged. Readmitted with psychotic symptoms including paranoia, delusions of persecution (that family and people at the [facility] were trying to poison/harm her), refusing to eat with hypokalemia, homelessness, delusions that she owns a home, and inability to provide for her own basic needs. Additionally, family members who petitioned reported she made suicidal statements and walked into traffic, and reported delusions that her son had stabbed her in her intestines were hanging out. They also reported she had been noncompliant with oral psychotropic medications, and although her telephonic nurse case manager assisted her to fill these on the day of discharge, she did not bring them into the hospital with her and says she does not know where they are. She is repeatedly demonstrated complete inability to provide for her own basic needs outside of the hospital, including health, welfare, ch[facility], food, and safety. Inpatient treatment is medically necessary due to the severity of her symptoms and risk for suicide if discharged. She is now on a 304 involuntary commitment, and we are recommending long-term inpatient treatment at the [facility]. Referral packet was sent for review on 09/07/2019. (1) Schizoaffective disorder, bipolar type: 09/03/19 -The patient has been admitted to the locked, secured behavioral health unit and has been placed in special observation room. She is also being monitored with close observations and every 15-minute direct observation. When more stable she will be actively encouraged to participate in individual, group, and activity therapies. We will also attempt to involve the family if the patient permits us to and if they agree. - Resuming medications as was rx'd at time of discharge on 08/29 including po Invega, lithium, and Sustenna. 09/03 -continue current medications, patient is taking them. -File for 306 conversion hearing to be held 09/06/2019. She will likely need referral to the [facility] due to the need for long-term inpatient treatment. -Reviewed FLP and FG from recent hospitalization 08/07/2019: Cholesterol 221, glucose 109, other values within normal limits. -Attempt to involve family is able; son-in-law Poli is petitioner and was involved in hospitalization so we will ask staff to contact him for collateral information and to determine the family's ability to assist with discharge planning and housing. She has very limited supports in the community and if they are unable to assist her with housing and care, she will likely require long-term hospitalization. -Continue private room for psychosis. 09/04 - Continue current medication regimen - patient has been compliant with medications in this structured environment - 306 conversion hearing scheduled for 09/05 - Meeting with telephonic nurse case manager today to discuss treatment options and continue attempts to build rapport - Referral to [facility] is being recommended at this time has patient has repeatedly demonstrated an inability to care for self and provide for basic needs without the support of a structured psychiatric setting. - EKG (WNL). PPD was refused by patient - CXR ordered 09/05 -306 hearing held and patient converted to a 304 involuntary commitment. -Referred to [facility] for long-term inpatient treatment, as patient is severely ill and unable to provide for her own basic needs as a result of her mental illness, and treatment for 27 days on our acute unit was insufficient for successful transition to the community. She was at [facility] for 4 months within the past year, and did respond to treatment there, so returned to the [facility] as recommended for long-term treatment of SPMI. -EKG and chest x-ray completed for state hospital referral. 09/06 - Continue current medication regimen - Referral to [facility] is being prepared, approval was [place] received from the county - Ongoing attempt to build rapport with psychiatric telephonic nurse case manager 09/07 - 09/09 - Continue current medication regimen - Referral sent to [facility] on 09/07/2019 for recommended long- term psychiatric hospitalization based on chronic medication/treatment non- compliance and repeated demonstration of inability to care for self outside of a structured psychiatric setting. - Pt was informed of [facility] referral today during encounter 09/10 - Continue current medication regimen - [facility] referral sent on 09/07/2019 - requesting updates regarding when case is anticipated to be reviewed and ensure information was received - Pt continues to demand to leave, unable to appreciated the severity of her condition. Ongoing concern related to patient's repeated demonstration of inability to care for self outside of a structured psychiatric setting. 09/11 - Continue current medication regimen - Awaiting acceptance at [facility]. Ongoing concern related to patient's repeated demonstration of inability to care for self outside of a structured psychiatric setting. 09/12 - 09/14 - Pt due for next injection of Invega Sustenna 234mg IM on 09/16. Oral supplementation was continued from last hospitalization due to concern for ongoing instability with regard to psychotic symptoms. In preparation for first maintenance dose, will reduce oral supplementation to 3mg qAM and discontinue oral paliperidone on 09/16. Continue lithium 450mg BID unchanged. - Awaiting replay for [facility] regarding referral. Ongoing concern related to patient's repeated demonstration of inability to care for self outside of a structured psychiatric setting. Pt has consistently not been agreeable to diversion planning as a result of fixed delusional beliefs that she has family support, that she has a house to live in, and that she has a lot of money - none of these statements confirmed to be true. 09/15 -Continue treatment plan as previously prescribed (2) Noncompliance with medication regimen: 09/02 - Unable to clarify if pt has been taking her medications regularly in the days since discharge. She at first indicated that she was not then indicated the medications arein a bag of hers but did not indicate actually taking them. The patient also claims to not recall the names of any of her medications and reports that she does not have the conditions for which her known medications are clearly intended. Possible cognitive impairments. might be impacting medication compliance. language impairments with pt not speaking [place] impacting compliance concerns. -The patient's underlying psychiatric condition will be actively treated. It is hoped that with treatment we will be able to improve medication compliance and also address aspects that impact compliance and improve this with appropriate interventions. CANTOR form of Invega to be continued at this time, next dose not due for another 2 weeks. Pt took meds this morning that were offered to her but given her extensive non compliance prior to, during and seeming after recent admission and lack of insight to her dx and presentation and indicating that recent hospitalization was quite helpful for her and her indicating wanting to continue her medications as was rx' at end of recent [facility] admission and were instructed to take at that discharge. I am in favor of medication over objection if pt objects to taking her medication during the course of this admission or if it is determined that pt is checking or not actually taking her medications. (3) Homeless: 09/03/19 -In the past, the patient has lived with family members. However, this is clearly not an option at the present time. The context is that the patient reportedly was in [facility] for approximately a year because of her making terroristic threats against the family. While it does seem clear that the family wants to help protect her, they are unable to safely provide chcf. Given the patient's history of neglect of self-care, medication nonadherence, and possible cognitive deficits we are going to investigate structured residential programs as part of our discharge planning. 09/03 -patient has consistently refused assistance with housing, insisting that she has a house in [place], although has not been able to provide an address and her family states this is not true. 09/06 - Patient's grandson called unit yesterday to provide additional information, stating the patient has been homeless for quite some time and there is no valid address for the patient (4) Involuntary commitment: 09/03 -patient on a 304 IOC, readmitted on a 302. We will file for a 306 conversion hearing. 09/04 - 306 hearing scheduled for 09/05; anticipate referral to [facility]. 09/05 -306 conversion granted, now here on a 304 involuntary commitment. 09/07 - Referral packet sent to [facility] on 09/06 (5) Nicotine abuse: 09/02 - Nicotine Patch 7mg topical daily resumed, and smoking cessation to be done when pt is in more apposite mental state to do so Inventory Assets Strengths: concerned family members, pleasant on approach Needs: stable housing, improved compliance to medication and treatment plan Risk Factors Assessment Male: No : No Do You Have Access To A Gun?: No Health Problems: No Mental Health Diagnoses: Yes Substance Use Disorders: No Previous Attempt: Yes (Per family, patient denies) Previous Psychiatric Hospitalization: Yes Hopelessness: No Smoker: Yes Protective Factors Assessment : No Responsible for Young Children: No Employed: No Stable Relationships: No Supportive Family: No Good Rapport with Provider: No Interval History Identifying Information ANDREW CYR is a 63-year-old F who currently is homeless in [facility], has a history of schizoaffective disorder, bipolar type, and was admitted on 09/03/19 05:42 on a 302 involuntary commitment for psychosis, suicidal ideation, inability to provide for basic needs, and medication noncompliance. Chief Complaint "I am good, thank you". Review of Systems Sleep Information Total Hours of Sleep: 2.25 Sleep Comments: andrew came out to the nurses station and pleasantly requested a soda from the fridge at 0420 Meal Information Percent Meal Consumed - Breakfast: 100 Percent Meal Consumed - Lunch: 100 Percent Meal Consumed - Dinner: 100 Nutrition Comment: documented from the pt. meal record Subjective Subjective Patient was seen & assessed and interval progress reviewed with treatment team. No acute events overnight apart from poor sleep last evening which is reportedly not common for her. Has been medication compliant.. Transitioning from oral Invega and will be due for next injectable Sustenna dose on the . Patient is without acute complaints this morning and pleasant for interview facilitated by iPad-based show girl service. She asks about length of stay and is accepting that she will be here through the weekend. She denies any new ph ysical complaints. Physical Exam Vital Signs (Past 24 Hours) Last Vital Signs Temp 36.5 C 09/16/19 06:40 Pulse 73 09/16/19 06:41 Resp 20 09/16/19 06:40 BP 143/85 H 09/16/19 06:41 Pulse Ox 95 09/03/19 05:47 Results & Data ([facility]) Current Inpatient Medications Current Inpatient Medications: Current Inpatient Medications Acetaminophen (Tylenol) 650 mg PO Q4H PRN PRN Reason: Headache or Minor Fever Stop: 10/03/19 05:41 Last Admin: 09/04/19 03:41 Dose: 650 mg Documented by: Al Hydrox/Mg Hydrox/Simethicone (Maalox) 30 ml PO Q4H PRN PRN Reason: GI Upset Stop: 10/03/19 05:41 Bismuth Subsalicylate (Kaopectate) 15 ml PO PRN PRN PRN Reason: Loose Stool Stop: 10/03/19 05:41 Docusate Sodium (Colace) 100 mg PO BID CLARISA Stop: 10/05/19 08:59 Last Admin: 09/16/19 08:34 Dose: 100 mg Documented by: Hydroxyzine HCl (Vistaril) 50 mg PO HSZ PRN PRN Reason: Insomnia Stop: 10/03/19 05:41 Hydroxyzine HCl (Vistaril) 25 mg PO Q4H PRN PRN Reason: Anxiety Stop: 10/03/19 05:41 Levothyroxine Sodium (Synthroid) 75 mcg PO DAILYBB [facility] Stop: 10/03/19 07:59 Last Admin: 09/16/19 08:33 Dose: 75 mcg Documented by: [place] Carbonate (Eskalith) 450 mg PO BID [facility] Stop: 10/03/19 20:59 Last Admin: 09/16/19 08:34 Dose: 450 mg Documented by: Magnesium Hydroxide (Milk Of Magnesia) 30 ml PO DAILY PRN PRN Reason: Constipation Stop: 10/03/19 05:41 Miscellaneous (Remove Nicoderm Patch) 1 ea N/A DAILY@0859 [facility] Stop: 10/04/19 08:58 Last Admin: 09/16/19 08:38 Dose: 1 ea Documented by: Nicotine (Nicoderm Cq) 7 mg TD QAM [facility] Stop: 10/03/19 16:29 Last Admin: 09/16/19 08:33 Dose: 7 mg Documented by: Paliperidone Palmitate (Invega Sustenna) 234 mg IM Yancey@0900 ONE Stop: 09/17/19 09:01 Simvastatin (Zocor) 10 mg PO HS [facility] Stop: 10/03/19 21:59 Last Admin: 09/15/19 20:44 Dose: 10 mg Documented by: Sodium Chloride ([place] Nasal) 1 - 2 sprays NA PRN PRN PRN Reason: Nasal Dryness/Congestion Stop: 10/03/19 05:41 Mental Health & Subst Abuse Tx Psychiatrist Name of Psychiatrist: Jackelin Psychiatrist's Date of Appointment with Psychiatrist: 09/14/19 Time of Appointment with Psychiatrist: 11:00 a.m. Psychiatric Appointment Comment: [address] [place] [address] Therapist Name of Therapist: None Poly Area Supervisor Name of Poly Area Supervisor: [employer] - Lizzy Pandey Phone Number for Poly Area Supervisor: [phone] Post Discharge Appointments Primary Care Physician Name Of Family Doctor: [facility] Primary Care Provider Appointment Comment: [address], [address], [place] [address]
[2019-09-16] MEDS: SIMVASTATIN 10 MG TAB PO SCH (20:51)
[2019-09-17] MEDS: DOCUSATE SODIUM 100 MG CAP PO SCH ×2 (07:33→20:50)
[2019-09-17] MEDS: LITHIUM CARBONATE 450 MG TABCR PO SCH ×2 (07:33→20:50)
[2019-09-17] MEDS: LEVOTHYROXINE SODIUM 75 MCG TABLET PO SCH (07:33)
[2019-09-17] MEDS: NICOTINE 7 MG/24 HR TDSY TD SCH (07:41)
[2019-09-17] MEDS ORDERED: PALIPERIDONE PALMITATE 234 MG/1.5 ML SYR IM SCH (09:00)
[2019-09-17] MEDS ORDERED: PALIPERIDONE PALMITATE 234 MG/1.5 ML SYR IM ONE (09:00)
--- NOTE | 2019-09-17 15:55 | Psychiatric Progress Note ---
Date of Service September 17, 2019 Impression / Recommendations Impression 63-year-old Beninese female with schizoaffective disorder bipolar type admitted on a 302 commitment 4 days after being discharged from this unit on 08/29 after a 27-day hospitalization. She was discharged on a 304 IOC, and return to the ER later that same day, after police were called due to bizarre behavior at a local grocery store, but was again discharged. Readmitted with psychotic symptoms including paranoia, delusions of persecution (that family and people at the fci were trying to poison/harm her), refusing to eat with hypokalemia, homelessness, delusions that she owns a home, and inability to provide for her own basic needs. Additionally, family members who petitioned reported she made suicidal statements and walked into traffic, and reported delusions that her son had stabbed her in her intestines were hanging out. They also reported she had been noncompliant with oral psychotropic medications, and although her case fitter assisted her to fill these on the day of discharge, she did not bring them into the hospital with her and says she does not know where they are. She is repeatedly demonstrated complete inability to provide for her own basic needs outside of the hospital, including health, welfare, fci, food, and safety. Inpatient treatment is medically necessary due to the severity of her symptoms and risk for suicide if discharged. She is now on a 304 involuntary commitment, and we [facility] Referral packet was sent for review on 09/07/2019. (1) Schizoaffective disorder, bipolar type: 09/03/19 -The patient has been admitted to the locked, secured behavioral health unit and has been placed in special observation room. She is also being monitored with close observations and every 15-minute direct observation. When more stable she will be actively encouraged to participate in individual, group, and activity therapies. We will also attempt to involve the family if the patient permits us to and if they agree. - Resuming medications as was rx'd at time of discharge on 08/29 including po Invega, lithium, and Sustenna. 09/03 -continue current medications, patient is taking them. -File for 306 conversion hearing to be held 09/06/2019. [facility] to the need for long-term inpatient treatment. -Reviewed FLP and FG from recent hospitalization 08/07/2019: Cholesterol 221, glucose 109, other values within normal limits. -Attempt to involve family is able; son-in-law Poli is petitioner and was involved in hospitalization so we will ask staff to contact him for collateral information and to determine the family's ability to assist with discharge planning and housing. She has very limited supports in the community and if they are unable to assist her with housing and care, she will likely require long-term hospitalization. -Continue private room for psychosis. 09/04 - Continue current medication regimen - patient has been compliant with medications in this structured environment - 306 conversion hearing scheduled for 09/05 - Meeting with case fitter today to discuss treatment options and continue attempts to build rapport - Referral to [facility] is being recommended at this time has patient has repeatedly demonstrated an inability to care for self and provide for basic needs without the support of a structured psychiatric setting. - EKG (WNL). PPD was refused by patient - CXR ordered 09/05 -306 hearing held and patient converted to a 304 involuntary commitment. -Referred to [facility] for long-term inpatient treatment, as patient is severely ill and unable to provide for her own basic needs as a result of her mental illness, and treatment for 27 days on our acute unit was insufficient for successful transition to the community. She was at [facility] for 4 months within the past year, and did respond to treatment there, so returned to the [facility] hospital as recommended for long-term treatment of SPMI. -EKG and chest x-ray completed for state hospital referral. 09/06 - Continue current medication regimen - Referral to [facility] is being prepared, approval was reportedly received from the county - Ongoing attempt to build rapport with psychiatric case fitter 09/07 - 09/09 - Continue current medication regimen - Referral sent to [facility] on 09/07/2019 for recommended long- term psychiatric hospitalization based on chronic medication/treatment non- compliance and repeated demonstration of inability to care for self outside of a structured psychiatric setting. - Pt was informed of [facility] referral today during encounter 09/10 - Continue current medication regimen - [facility] referral sent on 09/07/2019 - requesting updates regarding when case is anticipated to be reviewed and ensure information was received - Pt continues to demand to leave, unable to appreciated the severity of her condition. Ongoing concern related to patient's repeated demonstration of inability to care for self outside of a structured psychiatric setting. 09/11 - Continue current medication regimen - Awaiting acceptance at [facility]. Ongoing concern related to patient's repeated demonstration of inability to care for self outside of a structured psychiatric setting. 09/12 - 09/14 - Pt due for next injection of Invega Sustenna 234mg IM on 09/16. Oral supplementation was continued from last hospitalization due to concern for ongoing instability with regard to psychotic symptoms. In preparation for first maintenance dose, will reduce oral supplementation to 3mg qAM and discontinue oral paliperidone on 09/16. Continue lithium 450mg BID unchanged. - Awaiting replay for [facility] regarding referral. Ongoing concern related to patient's repeated demonstration of inability to care for self outside of a structured psychiatric setting. Pt has consistently not been agreeable to diversion planning as a result of fixed delusional beliefs that she has family support, that she has a house to live in, and that she has a lot of money - none of these statements confirmed to be true. 09/15 -Continue treatment plan as previously prescribed 09/16 -now fully converted to invega sustenna. (2) Noncompliance with medication regimen: 09/02 - Unable to clarify if pt has been taking her medications regularly in the days since discharge. She at first indicated that she was not then indicated the medications arein a bag of hers but did not indicate actually taking them. The patient also claims to not recall the names of any of her medications and reports that she does not have the conditions for which her known medications are clearly intended. Possible cognitive impairments. might be impacting medication compliance. language impairments with pt not speaking Romansh impacting compliance concerns. -The patient's underlying psychiatric condition will be actively treated. It is hoped that with treatment we will be able to improve medication compliance and also address aspects that impact compliance and improve this with appropriate interventions. CANTOR form of Invega to be continued at this time, next dose not due for another 2 weeks. Pt took meds this morning that were offered to her but given her extensive non compliance prior to, during and seeming after recent admission and lack of insight to her dx and presentation and indicating that recent hospitalization was quite helpful for her and her indicating wanting to continue her medications as was rx' at end of recent [facility] admission and were instructed to take at that discharge. I am in favor of medication over objection if pt objects to taking her medication during the course of this admission or if it is determined that pt is checking or not actually taking her medications. (3) Homeless: 09/03/19 -In the past, the patient has lived with family members. However, this is clearly not an option at the present time. The context is that the patient reportedly was [facility] [facility] a [facility] because of her making terroristic threats against the family. While it does seem clear that the family wants to help protect her, they are unable to safely provide fci. Given the patient's history of neglect of self-care, medication nonadherence, and possible cognitive deficits we are going to investigate structured residential programs as part of our discharge planning. 09/03 -patient has consistently refused assistance with housing, insisting that she has a house in [place], although has not been able to provide an address and her family states this is not true. 09/06 - Patient's grandson called unit yesterday to provide additional information, stating the patient has been homeless for quite some time and there is no valid address for the patient (4) Involuntary commitment: 09/03 -patient on a 304 IOC, readmitted on a 302. We will file for a 306 conversion hearing. 09/04 - 306 hearing scheduled for 09/05; anticipate referral to [facility]. 09/05 -306 conversion granted, now here on a 304 involuntary commitment. 09/07 - Referral packet sent to [facility] on 09/06 (5) Nicotine abuse: 09/02 - Nicotine Patch 7mg topical daily resumed, and smoking cessation to be done when pt is in more apposite mental state to do so Inventory Assets Strengths: concerned family members, pleasant on approach Needs: stable housing, improved compliance to medication and treatment plan Risk Factors Assessment Male: No : No Do You Have Access To A Gun?: No Health Problems: No Mental Health Diagnoses: Yes Substance Use Disorders: No Previous Attempt: Yes (Per family, patient denies) Previous Psychiatric Hospitalization: Yes Hopelessness: No Smoker: Yes Protective Factors Assessment : No Responsible for Young Children: No Employed: No Stable Relationships: No Supportive Family: No Good Rapport with Provider: No Interval History Identifying Information ANDREW CYR is a 63-year-old F who currently is homeless in [facility], has a history of schizoaffective disorder, bipolar type, and was admitted on 09/03/19 05:42 on a 302 involuntary commitment for psychosis, suicidal ideation, inability to provide for basic needs, and medication noncompliance. Chief Complaint "Good". Review of Systems Notes denies restlessness, changes in appetite, or changes in sleep. Sleep Information Total Hours of Sleep: 5 Sleep Comments: additional 3 hours of sleep on previous shift. Meal Information Percent Meal Consumed - Breakfast: 100 Percent Meal Consumed - Lunch: 100 Percent Meal Consumed - Dinner: 100 Nutrition Comment: documented from the pt. meal record Subjective Subjective Patient was seen & assessed and interval progress reviewed with treatment team. No acute events overnight. Oral Invega stopped today and she received her scheduled systemic injection without issue. Has been a "model patient" in the last 24 hours, cooperative. No evidence of response to internal stim in common areas reported by staff however she is speaking to unseen persons on approach in her room today. She participates in interview facilitated by iPad-based language therapist. She describes her mood is good. She denies any new physical complaints or concerns. She denies questions for me today. Physical Exam Psychiatric Orientation: alert and cooperative Apperance: appropriately dressed and appropriately groomed Eye Contact: good eye contact Motor Behavior: steady gait and station Speech: normal rate/rhythm/volume of speech (slovak speaking); no pressured speech Affect: euthymic affect Mood: no depressed mood Thought Process: + concrete thought process Thought Content: + delusions Suicidal Thoughts: denies suicidal thoughts Homicidal Thoughts: denies homicidal thoughts Insight: + impaired insight Judgement: + limited judgement Vital Signs (Past 24 Hours) Last Vital Signs Temp 36.5 C 09/17/19 06:20 Pulse 73 09/17/19 06:21 Resp 20 09/17/19 06:20 BP 153/74 H 09/17/19 06:21 Pulse Ox 95 09/03/19 05:47 Results & Data ([facility]) Current Inpatient Medications Current Inpatient Medications: Current Inpatient Medications Acetaminophen (Tylenol) 650 mg PO Q4H PRN PRN Reason: Headache or Minor Fever Stop: 10/03/19 05:41 Last Admin: 09/04/19 03:41 Dose: 650 mg Documented by: Al Hydrox/Mg Hydrox/Simethicone (Maalox) 30 ml PO Q4H PRN PRN Reason: GI Upset Stop: 10/03/19 05:41 Bismuth Subsalicylate (Kaopectate) 15 ml PO PRN PRN PRN Reason: Loose Stool Stop: 10/03/19 05:41 Docusate Sodium (Colace) 100 mg PO BID [facility] Stop: 10/05/19 08:59 Last Admin: 09/17/19 07:33 Dose: 100 mg Documented by: Hydroxyzine HCl (Vistaril) 50 mg PO HSZ PRN PRN Reason: Insomnia Stop: 10/03/19 05:41 Hydroxyzine HCl (Vistaril) 25 mg PO Q4H PRN PRN Reason: Anxiety Stop: 10/03/19 05:41 Levothyroxine Sodium (Synthroid) 75 mcg PO DAILYBB [facility] Stop: 10/03/19 07:59 Last Admin: 09/17/19 07:33 Dose: 75 mcg Documented by: [place] Carbonate (Eskalith) 450 mg PO BID [facility] Stop: 10/03/19 20:59 Last Admin: 09/17/19 07:33 Dose: 450 mg Documented by: Magnesium Hydroxide (Milk Of Magnesia) 30 ml PO DAILY PRN PRN Reason: Constipation Stop: 10/03/19 05:41 Miscellaneous (Remove Nicoderm Patch) 1 ea N/A DAILY@0859 [facility] Stop: 10/04/19 08:58 Last Admin: 09/17/19 07:50 Dose: 1 ea Documented by: Nicotine (Nicoderm Cq) 7 mg TD QAM [facility] Stop: 10/03/19 16:29 Last Admin: 09/17/19 07:41 Dose: 7 mg Documented by: Simvastatin (Zocor) 10 mg PO HS [facility] Stop: 10/03/19 21:59 Last Admin: 09/16/19 20:51 Dose: 10 mg Documented by: Sodium Chloride ([place] Nasal) 1 - 2 sprays NA PRN PRN PRN Reason: Nasal Dryness/Congestion Stop: 10/03/19 05:41 Mental Health & Subst Abuse Tx Psychiatrist Name of Psychiatrist: Jackelin Psychiatrist's Date of Appointment with Psychiatrist: 09/14/19 Time of Appointment with Psychiatrist: 11:00 a.m. Psychiatric Appointment Comment: [address] [place] [address] Therapist Name of Therapist: None Hand Hide Stretcher Name of Hand Hide Stretcher: [employer] [facility] Lizzy Pandey Phone Number for Hand Hide Stretcher: [phone] Post Discharge Appointments Primary Care Physician Name Of Family Doctor: [facility] Primary Care Provider Appointment Comment: [address], [address], [place] [address]
[2019-09-17] MEDS: SIMVASTATIN 10 MG TAB PO SCH (20:51)
[2019-09-18] MEDS: NICOTINE 7 MG/24 HR TDSY TD SCH (09:38)
[2019-09-18] MEDS: DOCUSATE SODIUM 100 MG CAP PO SCH ×2 (09:38→20:44)
[2019-09-18] MEDS: LEVOTHYROXINE SODIUM 75 MCG TABLET PO SCH (09:38)
[2019-09-18] MEDS: LITHIUM CARBONATE 450 MG TABCR PO SCH ×2 (09:38→20:44)
--- NOTE | 2019-09-18 09:38 | Psychiatric Progress Note ---
Date of Service September 18, 2019 Impression / Recommendations Impression 63-year-old [place] female with schizoaffective disorder bipolar type admitted on a 302 commitment 4 days after being discharged from this unit on 08/29 after a 27-day hospitalization. She was discharged on a 304 IOC, and return to the ER later that same day, after police were called due to bizarre behavior at a local grocery store, but was again discharged. Readmitted with psychotic symptoms including paranoia, delusions of persecution (that family and people at the group home were trying to poison/harm her), refusing to eat with hypokalemia, homelessness, delusions that she owns a home, and inability to provide for her own basic needs. Additionally, family members who petitioned reported she made suicidal statements and walked into traffic, and reported delusions that her son had stabbed her in her intestines were hanging out. They also reported she had been noncompliant with oral psychotropic medications, and although her rn field case manager assisted her to fill these on the day of discharge, she did not bring them into the hospital with her and says she does not know where they are. She is repeatedly demonstrated complete inability to provide for her own basic needs outside of the hospital, including health, welfare, group home, food, and safety. Inpatient treatment is medically necessary due to the severity of her symptoms and risk for suicide if discharged. She is now on a 304 involuntary commitment, and we are recommending long-term inpatient treatment at the [facility]. Referral packet was sent for review on 09/07/2019, we still have not received confirmation that the packet was received despite several attempts at communication. (1) Schizoaffective disorder, bipolar type: 09/03/19 -The patient has been admitted to the locked, secured behavioral health unit and has been placed in special observation room. She is also being monitored with close observations and every 15-minute direct observation. When more stable she will be actively encouraged to participate in individual, group, and activity therapies. We will also attempt to involve the family if the patient permits us to and if they agree. - Resuming medications as was rx'd at time of discharge on 08/29 including po Invega, lithium, and Sustenna. 09/03 -continue current medications, patient is taking them. -File for 306 conversion hearing to be held 09/06/2019. She will likely need referral to the [facility] due to the need for long-term inpatient treatment. -Reviewed FLP and FG from recent hospitalization 08/07/2019: Cholesterol 221, glucose 109, other values within normal limits. -Attempt to involve family is able; son-in-law Poli is petitioner and was involved in hospitalization so we will ask staff to contact him for collateral information and to determine the family's ability to assist with discharge planning and housing. She has very limited supports in the community and if they are unable to assist her with housing and care, she will likely require long-term hospitalization. -Continue private room for psychosis. 09/04 - Continue current medication regimen - patient has been compliant with medications in this structured environment - 306 conversion hearing scheduled for 09/05 - Meeting with rn field case manager today to discuss treatment options and continue attempts to build rapport - Referral to [facility] is being recommended at this time has patient has repeatedly demonstrated an inability to care for self and provide for basic needs without the support of a structured psychiatric setting. - EKG (WNL). PPD was refused by patient - CXR ordered 09/05 -306 hearing held and patient converted to a 304 involuntary commitment. -Referred to [facility] for long-term inpatient treatment, as patient is severely ill and unable to provide for her own basic needs as a result of her mental illness, and treatment for 27 days on our acute unit was insufficient for successful transition to the community. She was at [facility] for 4 months within the past year, and did respond to treatment there, so returned to the [facility] as recommended for long-term treatment of SPMI. -EKG and chest x-ray completed for [facility] referral. 09/06 - Continue current medication regimen - Referral to [facility] is being prepared, approval was reportedly received from the county - Ongoing attempt to build rapport with psychiatric rn field case manager 09/07 - 09/09 - Continue current medication regimen - Referral sent to [facility] on 09/07/2019 for recommended long- term psychiatric hospitalization based on chronic medication/treatment non- compliance and repeated demonstration of inability to care for self outside of a structured psychiatric setting. - Pt was informed of [facility] referral today during encounter 09/10 - Continue current medication regimen - [facility] referral sent on 09/07/2019 - requesting updates regarding when case is anticipated to be reviewed and ensure information was received - Pt continues to demand to leave, unable to appreciated the severity of her condition. Ongoing concern related to patient's repeated demonstration of inability to care for self outside of a structured psychiatric setting. 09/11 - Continue current medication regimen - Awaiting acceptance at [facility]. Ongoing concern related to patient's repeated demonstration of inability to care for self outside of a structured psychiatric setting. 09/12 - 09/14 - Pt due for next injection of Invega Sustenna 234mg IM on 09/16. Oral supplementation was continued from last hospitalization due to concern for ongoing instability with regard to psychotic symptoms. In preparation for first maintenance dose, will reduce oral supplementation to 3mg qAM and discontinue oral paliperidone on 09/16. Continue lithium 450mg BID unchanged. - Awaiting replay for [facility] regarding referral. Ongoing concern related to patient's repeated demonstration of inability to care for self outside of a structured psychiatric setting. Pt has consistently not been agreeable to diversion planning as a result of fixed delusional beliefs that she has family support, that she has a house to live in, and that she has a lot of money - none of these statements confirmed to be true. 09/15 -Continue treatment plan as previously prescribed 09/16 -now fully converted to invega sustenna. 09/17 - Continue current treatment plan (2) Noncompliance with medication regimen: 09/02 - Unable to clarify if pt has been taking her medications regularly in the days since discharge. She at first indicated that she was not then indicated the medications arein a bag of hers but did not indicate actually taking them. The patient also claims to not recall the names of any of her medications and reports that she does not have the conditions for which her known medications are clearly intended. Possible cognitive impairments. might be impacting medication compliance. language impairments with pt not speaking Libyan impacting compliance concerns. -The patient's underlying psychiatric condition will be actively treated. It is hoped that with treatment we will be able to improve medication compliance and also address aspects that impact compliance and improve this with appropriate interventions. CANTOR form of Invega to be continued at this time, next dose not due for another 2 weeks. Pt took meds this morning that were offered to her but given her extensive non compliance prior to, during and seeming after recent admission and lack of insight to her dx and presentation and indicating that recent hospitalization was quite helpful for her and her indicating wanting to continue her medications as was rx' at end of recent [facility] admission and were instructed to take at that discharge. I am in favor of medication over objection if pt objects to taking her medication during the course of this admission or if it is determined that pt is checking or not actually taking her medications. (3) Homeless: 09/03/19 -In the past, the patient has lived with family members. However, this is clearly not an option at the present time. The context is that the patient reportedly was in residential for approximately a year because of her making terroristic threats against the family. While it does seem clear that the family wants to help protect her, they are unable to safely provide group home. Given the patient's history of neglect of self-care, medication nonadherence, and possible cognitive deficits we are going to investigate structured residential programs as part of our discharge planning. 09/03 -patient has consistently refused assistance with housing, insisting that she has a house in [place], although has not been able to provide an address and her family states this is not true. 09/06 - Patient's grandson called unit yesterday to provide additional information, stating the patient has been homeless for quite some time and there is no valid address for the patient (4) Involuntary commitment: 09/03 -patient on a 304 IOC, readmitted on a 302. We will file for a 306 conversion hearing. 09/04 - 306 hearing scheduled for 09/05; anticipate referral to [facility]. 09/05 -306 conversion granted, now here on a 304 involuntary commitment. 09/07 - Referral packet sent to [facility] on 09/06 (5) Nicotine abuse: 09/02 - Nicotine Patch 7mg topical daily resumed, and smoking cessation to be done when pt is in more apposite mental state to do so Inventory Assets Strengths: concerned family members, pleasant on approach Needs: stable housing, improved compliance to medication and treatment plan Risk Factors Assessment Male: No : No Do You Have Access To A Gun?: No Health Problems: No Mental Health Diagnoses: Yes Substance Use Disorders: No Previous Attempt: Yes (Per family, patient denies) Previous Psychiatric Hospitalization: Yes Hopelessness: No Smoker: Yes Protective Factors Assessment : No Responsible for Young Children: No Employed: No Stable Relationships: No Supportive Family: No Good Rapport with Provider: No Interval History Identifying Information ANDREW CYR is a 63-year-old F who currently is homeless in [facility], has a history of schizoaffective disorder, bipolar type, and was admitted on 09/03/19 05:42 on a 302 involuntary commitment for psychosis, suicidal ideation, inability to provide for basic needs, and medication noncompliance. Chief Complaint Referring to this weekend - "Everything was ok." Review of Systems Notes Constitutional: denied Cardiovascular: denied Respiratory: denied Gastrointestinal: denied Neurological: denied Psychiatric: denies symptoms other than stated above Total of at least 10 systems reviewed, pertinent positives as above and in HPI. Sleep Information Total Hours of Sleep: 7 Sleep Comments: additional 3 hours of sleep on previous shift. Meal Information Percent Meal Consumed - Breakfast: 100 Percent Meal Consumed - Lunch: 100 Percent Meal Consumed - Dinner: 100 Nutrition Comment: documented from the pt. meal record Subjective Subjective Patient was seen & assessed and interval progress reviewed with treatment team. Staff report the patient has continued to be superficially appropriate. She received her first maintenance injection of Invega Sustenna without reported incident on 09/16. We still have yet to receive notification that the [facility] referral was received despite multiple attempts at contact with the facility. Pt was seen today to assess progress since admission. [place]ian-[place] conversation was held with assistance from [employer] interpretive services - #[id number]. While awaiting for the diplomatic interpreter/translator to be available, this provider observed the patient to be looking over her shoulder and whispering, followed by laughter. Pt indicates that she is "ok" and that over the weekend "everything was ok." She denies specific questions or concerns. Pt was asked if she was having side effects from the injection she received Wednesday - "some pain yesterday, but nothing today." Pt continues to deny SI/HI and A/V hallucinations. We reviewed current medication regimen now that paliperidone has been adjusted to monthly injections. Pt did make specific inquiries about the dosing of her lithium, but denied any additional questions and was agreeable with continuing medications as currently prescribed. She denied issues with sleep or appetite as well as any other needs at this time. Physical Exam Psychiatric Orientation: alert, oriented to person, oriented to place and cooperative (superficially) Apperance: appropriately dressed (casually dressed in t-shirt and leggings) and appropriately groomed Eye Contact: good eye contact Motor Behavior: no abnormal motor movements (observed while seated on edge of bed) Speech: normal rate/rhythm/volume of speech Affect: + blunted affect (appearing fatigued) Mood: no depressed mood ("Ok") Thought Process: goal directed thought process and + concrete thought process Thought Content: not paranoid, no delusions (does not verbalize any delusional beliefs) and no hopelessness Suicidal Thoughts: denies suicidal thoughts Homicidal Thoughts: denies homicidal thoughts Hallucinations: no auditory hallucinations and no visual hallucinations Though continues to display behavior suggestive of ongoing response to internal stimuli Cognition: attention grossly intact and language grossly intact Insight: + impaired insight Judgement: + impaired judgement Vital Signs (Past 24 Hours) Last Vital Signs Temp 36.6 C 09/18/19 06:00 Pulse 67 09/18/19 06:32 Resp 18 09/18/19 06:00 BP 133/82 09/18/19 06:32 Pulse Ox 95 09/03/19 05:47 Results & Data ([facility]) Current Inpatient Medications Current Inpatient Medications: Current Inpatient Medications Acetaminophen (Tylenol) 650 mg PO Q4H PRN PRN Reason: Headache or Minor Fever Stop: 10/03/19 05:41 Last Admin: 09/04/19 03:41 Dose: 650 mg Documented by: Al Hydrox/Mg Hydrox/Simethicone (Maalox) 30 ml PO Q4H PRN PRN Reason: GI Upset Stop: 10/03/19 05:41 Bismuth Subsalicylate (Kaopectate) 15 ml PO PRN PRN PRN Reason: Loose Stool Stop: 10/03/19 05:41 Docusate Sodium (Colace) 100 mg PO BID CLARISA Stop: 10/05/19 08:59 Last Admin: 09/17/19 20:50 Dose: 100 mg Documented by: Hydroxyzine HCl (Vistaril) 50 mg PO HSZ PRN PRN Reason: Insomnia Stop: 10/03/19 05:41 Hydroxyzine HCl (Vistaril) 25 mg PO Q4H PRN PRN Reason: Anxiety Stop: 10/03/19 05:41 Levothyroxine Sodium (Synthroid) 75 mcg PO DAILYBB CLARISA Stop: 10/03/19 07:59 Last Admin: 09/17/19 07:33 Dose: 75 mcg Documented by: [place] Carbonate (Eskalith) 450 mg PO BID CLARISA Stop: 10/03/19 20:59 Last Admin: 09/17/19 20:50 Dose: 450 mg Documented by: Magnesium Hydroxide (Milk Of Magnesia) 30 ml PO DAILY PRN PRN Reason: Constipation Stop: 10/03/19 05:41 Miscellaneous (Remove Nicoderm Patch) 1 ea N/A DAILY@[id number] [facility] Stop: 10/04/19 08:58 Last Admin: 09/17/19 07:50 Dose: 1 ea Documented by: Nicotine (Nicoderm Cq) 7 mg TD QAM [facility] Stop: 10/03/19 16:29 Last Admin: 09/17/19 07:41 Dose: 7 mg Documented by: Simvastatin (Zocor) 10 mg PO HS [facility] Stop: 10/03/19 21:59 Last Admin: 09/17/19 20:51 Dose: 10 mg Documented by: Sodium Chloride ([place] Nasal) 1 - 2 sprays NA PRN PRN PRN Reason: Nasal Dryness/Congestion Stop: 10/03/19 05:41 Mental Health & Subst Abuse Tx Psychiatrist Name of Psychiatrist: Jackelin Psychiatrist's Date of Appointment with Psychiatrist: 09/14/19 Time of Appointment with Psychiatrist: 11:00 a.m. Psychiatric Appointment Comment: [address] [place] [address] Therapist Name of Therapist: None Clothing Supervisor Name of Clothing Supervisor: [employer] Lizzy Pandey Phone Number for Clothing Supervisor: [phone] Post Discharge Appointments Primary Care Physician Name Of Family Doctor: [facility] Primary Care Provider Appointment Comment: [address], [address], [place] [address]
[2019-09-18] MEDS: SIMVASTATIN 10 MG TAB PO SCH (20:44)
[2019-09-19] MEDS: LEVOTHYROXINE SODIUM 75 MCG TABLET PO SCH (07:38)
[2019-09-19] MEDS: NICOTINE 7 MG/24 HR TDSY TD SCH (07:38)
[2019-09-19] MEDS: DOCUSATE SODIUM 100 MG CAP PO SCH ×2 (07:39→20:37)
[2019-09-19] MEDS: LITHIUM CARBONATE 450 MG TABCR PO SCH ×2 (07:40→20:37)
--- NOTE | 2019-09-19 11:43 | Psychiatric Progress Note ---
Date of Service September 19, 2019 Impression / Recommendations Impression 63-year-old [place]an female with schizoaffective disorder bipolar type admitted on a 302 commitment 4 days after being discharged from this unit on 08/29 after a 27-day hospitalization. She was discharged on a 304 IOC, and return to the ER later that same day, after police were called due to bizarre behavior at a local grocery store, but was again discharged. Readmitted with psychotic symptoms including paranoia, delusions of persecution (that family and people at the senior living were trying to poison/harm her), refusing to eat with hypokalemia, homelessness, delusions that she owns a home, and inability to provide for her own basic needs. Additionally, family members who petitioned reported she made suicidal statements and walked into traffic, and reported delusions that her son had stabbed her in her intestines were hanging out. They also reported she had been noncompliant with oral psychotropic medications, and although her case management assistant assisted her to fill these on the day of discharge, she did not bring them into the hospital with her and says she does not know where they are. She is repeatedly demonstrated complete inability to provide for her own basic needs outside of the hospital, including health, welfare, senior living, food, and safety. Inpatient treatment is medically necessary due to the severity of her symptoms and risk for suicide if discharged. She is now on a 304 involuntary commitment, and we are recommending long[facility] inpatient [facility]. Referral packet was sent for review on 09/07/2019, we still have not received confirmation that the packet was received despite several attempts at communication. (1) Schizoaffective disorder, bipolar type: 09/03/19 -The patient has been admitted to the locked, secured behavioral health unit and has been placed in special observation room. She is also being monitored with close observations and every 15-minute direct observation. When more stable she will be actively encouraged to participate in individual, group, and activity therapies. We will also attempt to involve the family if the patient permits us to and if they agree. - Resuming medications as was rx'd at time of discharge on 08/29 including po Invega, lithium, and Sustenna. 09/03 -continue current medications, patient is taking them. -File for 306 conversion hearing to be held 09/06/2019. She will likely need referral to the [facility] due to the need for long-term inpatient treatment. -Reviewed FLP and FG from recent hospitalization 08/07/2019: Cholesterol 221, glucose 109, other values within normal limits. -Attempt to involve family is able; son-in-law Poli is petitioner and was involved in hospitalization so we will ask staff to contact him for collateral information and to determine the family's ability to assist with discharge planning and housing. She has very limited supports in the community and if they are unable to assist her with housing and care, she will likely require long-term hospitalization. -Continue private room for psychosis. 09/04 - Continue current medication regimen - patient has been compliant with medications in this structured environment - 306 conversion hearing scheduled for 09/05 - Meeting with case management assistant today to discuss treatment options and continue attempts to build rapport - Referral to [facility] is being recommended at this time has patient has repeatedly demonstrated an inability to care for self and provide for basic needs without the support of a structured psychiatric setting. - EKG (WNL). PPD was refused by patient - CXR ordered 09/05 -306 hearing held and patient converted to a 304 involuntary commitment. -Referred to [facility] for long-term inpatient treatment, as patient is severely ill and unable to provide for her own basic needs as a result of her mental illness, and treatment for 27 days on our acute unit was insufficient for successful transition to the community. She was at [facility] for 4 months within the past year, and did respond to treatment there, so [facility] treatment of SPMI. -EKG and chest x-ray completed for [facility] referral. 09/06 - Continue current medication regimen - Referral to [facility] is being prepared, approval was reportedly received from the county - Ongoing attempt to build rapport with psychiatric case management assistant 09/07 - 09/09 - Continue current medication regimen - Referral sent to [facility] on 09/07/2019 for recommended long- term psychiatric hospitalization based on chronic medication/treatment non- compliance and repeated demonstration of inability to care for self outside of a structured psychiatric setting. - Pt was informed of [facility] referral today during encounter 09/10 - Continue current medication regimen - [place] referral sent on 09/07/2019 - requesting updates regarding when case is anticipated to be reviewed and ensure information was received - Pt continues to demand to leave, unable to appreciated the severity of her condition. Ongoing concern related to patient's repeated demonstration of inability to care for self outside of a structured psychiatric setting. 09/11 - Continue current medication regimen - Awaiting acceptance at [facility]. Ongoing concern related to patient's repeated demonstration of inability to care for self outside of a structured psychiatric setting. 09/12 - 09/14 - Pt due for next injection of Invega Sustenna 234mg IM on 09/16. Oral supplementation was continued from last hospitalization due to concern for ongoing instability with regard to psychotic symptoms. In preparation for first maintenance dose, will reduce oral supplementation to 3mg qAM and discontinue oral paliperidone on 09/16. Continue lithium 450mg BID unchanged. - Awaiting replay for [facility] regarding referral. Ongoing concern related to patient's repeated demonstration of inability to care for self outside of a structured psychiatric setting. Pt has consistently not been agreeable to diversion planning as a result of fixed delusional beliefs that she has family support, that she has a house to live in, and that she has a lot of money - none of these statements confirmed to be true. 09/15 -Continue treatment plan as previously prescribed 09/16 -now fully converted to invega sustenna. 09/17 - Continue current treatment plan 09/18 - Continue current treatment plan - Confirmed that information from patient's hospitalization at our facility was received by [facility], but case has not yet been reviewed. Still awaiting determination of acceptance status. (2) Noncompliance with medication regimen: 09/02 - Unable to clarify if pt has been taking her medications regularly in the days since discharge. She at first indicated that she was not then indicated the medications arein a bag of hers but did not indicate actually taking them. The patient also claims to not recall the names of any of her medications and reports that she does not have the conditions for which her known medications are clearly intended. Possible cognitive impairments. might be impacting medication compliance. language impairments with pt not speaking Bel[place]ian impacting compliance concerns. -The patient's underlying psychiatric condition will be actively treated. It is hoped that with treatment we will be able to improve medication compliance and also address aspects that impact compliance and improve this with appropriate interventions. CANTOR form of Invega to be continued at this time, next dose not due for another 2 weeks. Pt took meds this morning that were offered to her but given her extensive non compliance prior to, during and seeming after recent admission and lack of insight to her dx and presentation and indicating that recent hospitalization was quite helpful for her and her indicating wanting to continue her medications as was rx' at end of recent [facility] admission and were instructed to take at that discharge. I am in favor of medication over objection if pt objects to taking her medication during the course of this admission or if it is determined that pt is checking or not actually taking her medications. (3) Homeless: 09/03/19 -In the past, the patient has lived with family members. However, this is clearly not an option at the present time. The context is that the patient reportedly was in [facility] for approximately a year because of her making terroristic threats against the family. While it does seem clear that the family wants to help protect her, they are unable to safely provide senior living. Given the patient's history of neglect of self-care, medication nonadherence, and possible cognitive deficits we are going to investigate structured residential programs as part of our discharge planning. 09/03 -patient has consistently refused assistance with housing, insisting that she has a house in [place], although has not been able to provide an address and her family states this is not true. 09/06 - Patient's grandson called unit yesterday to provide additional information, stating the patient has been homeless for quite some time and there is no valid address for the patient (4) Involuntary commitment: 09/03 -patient on a 304 IOC, readmitted on a 302. We will file for a 306 conversion hearing. 09/04 - 306 hearing scheduled for 09/05; anticipate referral to [facility]. 09/05 -306 conversion granted, now here on a 304 involuntary commitment. 09/07 - Referral packet sent to [facility] on 09/06 (5) Nicotine abuse: 09/02 - Nicotine Patch 7mg topical daily resumed, and smoking cessation to be done when pt is in more apposite mental state to do so Inventory Assets Strengths: concerned family members, pleasant on approach Needs: stable housing, improved compliance to medication and treatment plan Risk Factors Assessment Male: No : No Do You Have Access To A Gun?: No Health Problems: No Mental Health Diagnoses: Yes Substance Use Disorders: No Previous Attempt: Yes (Per family, patient denies) Previous Psychiatric Hospitalization: Yes Hopelessness: No Smoker: Yes Protective Factors Assessment : No Responsible for Young Children: No Employed: No Stable Relationships: No Supportive Family: No Good Rapport with Provider: No Interval History Identifying Information ANDREW CYR is a 63-year-old F who currently is homeless in [facility], has a history of schizoaffective disorder, bipolar type, and was admitted on 09/03/19 05:42 on a 302 involuntary commitment for psychosis, suicidal ideation, inability to provide for basic needs, and medication noncompliance. Chief Complaint "Fine. Thank you." Review of Systems Notes Patient does not verbalize any physical concerns at this time. As she is rather angry/frustrated and abruptly ends this appointment, there was difficulty assessing full ROS. Sleep Information Total Hours of Sleep: 6 Sleep Comments: pt on q-15 minute checks Meal Information Percent Meal Consumed - Breakfast: 100 Percent Meal Consumed - Lunch: 100 Percent Meal Consumed - Dinner: 100 Nutrition Comment: documented from the pt. meal record Subjective Subjective Patient was seen & assessed and interval progress reviewed with nursing and social work. Staff report the patient continues to be superficially cooperative with staff and peers, but spends most of her time in her room. It is reported that patient's case management assistant will meet with her on 09/20. Patient was seen today to assess progress since admission. German-[place]ian conversation was held with assistance from [facility] interpretive services - Omi #[id number]. Pt states she is "fine, thank you." She denies having any questions or concerns to discuss today. She states "nothing to talk about, just wondering when I can leave. I have been here 2 months already." Pt was reminded of plan for transfer to [facility] and that her length of stay is unchanged from the last several treatment teams. Pt demands to know "why was I kidnapped from my home?" and inquires "so what do you mean I can't keep myself safe. You think you can just keep me here." Discharge/transfer plan was again explained to the patient. Pt became upset and began walking into the bathroom, stating "no. no. no. no. no. no. Talk to you later, I cannot stay here another 3 months. No." She declined to speak any further so conversation was ended. Physical Exam Psychiatric Orientation: alert and + guarded (argumentative and irritable ) Apperance: appropriately dressed (casually, in t-shirt and leggings), + disheveled (hair appearing unkempt, awoken from sleep) and appeared stated age Eye Contact: good eye contact Motor Behavior: steady gait and station and no abnormal motor movements Speech: normal rate/rhythm/volume of speech Affect: + irritable affect and + angry affect Mood: no depressed mood ("Fine, thank you") Thought Process: + tangential thought process and + perseveration Thought Content: + preoccupation (with discharge), + paranoid, + delusions and + persecution Hallucinations: continues to deny, but is often observed to be responding to internal stimuli Cognition: attention grossly intact and language grossly intact Insight: + severely impaired insight Judgement: + severely impaired judgement Vital Signs (Past 24 Hours) Last Vital Signs Temp 36.6 C 09/19/19 06:37 Pulse 75 09/19/19 06:38 Resp 18 09/19/19 06:37 BP 136/83 09/19/19 06:38 Pulse Ox 95 09/03/19 05:47 Results & Data ([facility]) Current Inpatient Medications Current Inpatient Medications: Current Inpatient Medications Acetaminophen (Tylenol) 650 mg PO Q4H PRN PRN Reason: Headache or Minor Fever Stop: 10/03/19 05:41 Last Admin: 09/04/19 03:41 Dose: 650 mg Documented by: Al Hydrox/Mg Hydrox/Simethicone (Maalox) 30 ml PO Q4H PRN PRN Reason: GI Upset Stop: 10/03/19 05:41 Bismuth Subsalicylate (Kaopectate) 15 ml PO PRN PRN PRN Reason: Loose Stool Stop: 10/03/19 05:41 Docusate Sodium (Colace) 100 mg PO BID CLARISA Stop: 10/05/19 08:59 Last Admin: 09/19/19 07:39 Dose: 100 mg Documented by: Hydroxyzine HCl (Vistaril) 50 mg PO HSZ PRN PRN Reason: Insomnia Stop: 10/03/19 05:41 Hydroxyzine HCl (Vistaril) 25 mg PO Q4H PRN PRN Reason: Anxiety Stop: 10/03/19 05:41 Levothyroxine Sodium (Synthroid) 75 mcg PO DAILYBB [facility] Stop: 10/03/19 07:59 Last Admin: 09/19/19 07:38 Dose: 75 mcg Documented by: [place] Carbonate (Eskalith) 450 mg PO BID CLARISA Stop: 10/03/19 20:59 Last Admin: 09/19/19 07:40 Dose: 450 mg Documented by: Magnesium Hydroxide (Milk Of Magnesia) 30 ml PO DAILY PRN PRN Reason: Constipation Stop: 10/03/19 05:41 Miscellaneous (Remove Nicoderm Patch) 1 ea N/A DAILY@[id number] [facility] Stop: 10/04/19 08:58 Last Admin: 09/19/19 07:40 Dose: 1 ea Documented by: Nicotine (Nicoderm Cq) 7 mg TD QAM [facility] Stop: 10/03/19 16:29 Last Admin: 09/19/19 07:38 Dose: 7 mg Documented by: Simvastatin (Zocor) 10 mg PO HS [facility] Stop: 10/03/19 21:59 Last Admin: 09/18/19 20:44 Dose: 10 mg Documented by: Sodium Chloride ([place] Nasal) 1 - 2 sprays NA PRN PRN PRN Reason: Nasal Dryness/Congestion Stop: 10/03/19 05:41 Mental Health & Subst Abuse Tx Psychiatrist Name of Psychiatrist: Jackelin Psychiatrist's Date of Appointment with Psychiatrist: 09/14/19 Time of Appointment with Psychiatrist: 11:00 a.m. Psychiatric Appointment Comment: [address] [place] [address] Therapist Name of Therapist: None Outdoor Fitness Trainer Name of Outdoor Fitness Trainer: [facility] - Lizzy Pandey Phone Number for Outdoor Fitness Trainer: [phone] Post Discharge Appointments Primary Care Physician Name Of Family Doctor: [facility] Primary Care Provider Appointment Comment: [id number] [facility], [address], [place] [address]
[2019-09-19] MEDS: SIMVASTATIN 10 MG TAB PO SCH (20:37)
[2019-09-20] MEDS: LEVOTHYROXINE SODIUM 75 MCG TABLET PO SCH (08:25)
[2019-09-20] MEDS: DOCUSATE SODIUM 100 MG CAP PO SCH ×2 (08:25→20:32)
[2019-09-20] MEDS: LITHIUM CARBONATE 450 MG TABCR PO SCH ×2 (08:25→20:33)
[2019-09-20] MEDS: NICOTINE 7 MG/24 HR TDSY TD SCH (08:26)
--- NOTE | 2019-09-20 10:18 | Psychiatric Progress Note ---
Date of Service September 20, 2019 Impression / Recommendations Impression 63-year-old Afghan female with schizoaffective disorder bipolar type admitted on a 302 commitment 4 days after being discharged from this unit on 08/29 after a 27-day hospitalization. She was discharged on a 304 IOC, and return to the ER later that same day, after police were called due to bizarre behavior at a local grocery store, but was again discharged. Readmitted with psychotic symptoms including paranoia, delusions of persecution (that family and people at the long-term were trying to poison/harm her), refusing to eat with hypokalemia, homelessness, delusions that she owns a home, and inability to provide for her own basic needs. Additionally, family members who petitioned reported she made suicidal statements and walked into traffic, and reported delusions that her son had stabbed her in her intestines were hanging out. They also reported she had been noncompliant with oral psychotropic medications, and although her employment case manager assisted her to fill these on the day of discharge, she did not bring them into the hospital with her and says she does not know where they are. She is repeatedly demonstrated complete inability to provide for her own basic needs outside of the hospital, including health, welfare, long-term, food, and safety. Inpatient treatment is medically necessary due to the severity of her symptoms and risk for suicide if discharged. She is now on a 304 involuntary commitment, and we are recommending long-term inpatient treatment at the [facility]. Referral packet was sent for review on 09/07/2019, we still have not received confirmation that the packet was received despite several attempts at communication. (1) Schizoaffective disorder, bipolar type: 09/03/19 -The patient has been admitted to the locked, secured behavioral health unit and has been placed in special observation room. She is also being monitored with close observations and every 15-minute direct observation. When more stable she will be actively encouraged to participate in individual, group, and activity therapies. We will also attempt to involve the family if the patient permits us to and if they agree. - Resuming medications as was rx'd at time of discharge on 08/29 including po Invega, lithium, and Sustenna. 09/03 -continue current medications, patient is taking them. -File for 306 conversion hearing to be held 09/06/2019. She will likely need referral to the critical access hospital hospital due to the need for long-term inpatient treatment. -Reviewed FLP and FG from recent hospitalization 08/07/2019: Cholesterol 221, glucose 109, other values within normal limits. -Attempt to involve family is able; son-in-law Poli is petitioner and was involved in hospitalization so we will ask staff to contact him for collateral information and to determine the family's ability to assist with discharge planning and housing. She has very limited supports in the community and if they are unable to assist her with housing and care, she will likely require long-term hospitalization. -Continue private room for psychosis. 09/04 - Continue current medication regimen - patient has been compliant with medications in this structured environment - 306 conversion hearing scheduled for 09/05 - Meeting with employment case manager today to discuss treatment options and continue attempts to build rapport - Referral to [facility] is being recommended at this time has patient has repeatedly demonstrated an inability to care for self and provide for basic needs without the support of a structured psychiatric setting. - EKG (WNL). PPD was refused by patient - CXR ordered 09/05 -306 hearing held and patient converted to a 304 involuntary commitment. -Referred to [facility] for long-term inpatient treatment, as patient is severely ill and unable to provide for her own basic needs as a result of her mental illness, and treatment for 27 days on our acute unit was insufficient for successful transition to the community. She was at [facility] for 4 months within the past year, and did respond to treatment there, so returned to the [facility] as recommended for long-term treatment of SPMI. -EKG and chest x-ray completed for critical access hospital hospital referral. 09/06 - Continue current medication regimen - Referral to [facility] is being prepared, approval was reportedly received from the county - Ongoing attempt to build rapport with psychiatric employment case manager 09/07 - 09/09 - Continue current medication regimen - Referral sent to [facility] on 09/07/2019 for recommended long- term psychiatric hospitalization based on chronic medication/treatment non- compliance and repeated demonstration of inability to care for self outside of a structured psychiatric setting. - Pt was informed of [facility] referral today during encounter 09/10 - Continue current medication regimen - [facility] referral sent on 09/07/2019 - requesting updates regarding when case is anticipated to be reviewed and ensure information was received - Pt continues to demand to leave, unable to appreciated the severity of her condition. Ongoing concern related to patient's repeated demonstration of inability to care for self outside of a structured psychiatric setting. 09/11 - Continue current medication regimen - Awaiting acceptance at [facility]. Ongoing concern related to patient's repeated demonstration of inability to care for self outside of a structured psychiatric setting. 09/12 - 09/14 - Pt due for next injection of Invega Sustenna 234mg IM on 09/16. Oral supplementation was continued from last hospitalization due to concern for ongoing instability with regard to psychotic symptoms. In preparation for first maintenance dose, will reduce oral supplementation to 3mg qAM and discontinue oral paliperidone on 09/16. Continue lithium 450mg BID unchanged. - Awaiting replay for [facility] regarding referral. Ongoing concern related to patient's repeated demonstration of inability to care for self outside of a structured psychiatric setting. Pt has consistently not been agreeable to diversion planning as a result of fixed delusional beliefs that she has family support, that she has a house to live in, and that she has a lot of money - none of these statements confirmed to be true. 09/15 -Continue treatment plan as previously prescribed 09/16 -now fully converted to invega sustenna. 09/17 - Continue current treatment plan 09/18 - 09/19 - Continue current treatment plan - Confirmed that information from patient's hospitalization at our facility was received by [facility], but case has not yet been reviewed. Still awaiting determination of acceptance status. (2) Noncompliance with medication regimen: 09/02 - Unable to clarify if pt has been taking her medications regularly in the days since discharge. She at first indicated that she was not then indicated the medications arein a bag of hers but did not indicate actually taking them. The patient also claims to not recall the names of any of her medications and reports that she does not have the conditions for which her known medications are clearly intended. Possible cognitive impairments. might be impacting medication compliance. language impairments with pt not speaking Sammarinese impacting compliance concerns. -The patient's underlying psychiatric condition will be actively treated. It is hoped that with treatment we will be able to improve medication compliance and also address aspects that impact compliance and improve this with appropriate interventions. CANTOR form of Invega to be continued at this time, next dose not due for another 2 weeks. Pt took meds this morning that were offered to her but given her extensive non compliance prior to, during and seeming after recent admission and lack of insight to her dx and presentation and indicating that recent hospitalization was quite helpful for her and her indicating wanting to continue her medications as was rx' at end of recent [facility] admission and were instructed to take at that discharge. I am in favor of medication over objection if pt objects to taking h er medication during the course of this admission or if it is determined that pt is checking or not actually taking her medications. (3) Homeless: 09/03/19 -In the past, the patient has lived with family members. However, this is clearly not an option at the present time. The context is that the patient reportedly was in [facility] for approximately a year because of her making terroristic threats against the family. While it does seem clear that the family wants to help protect her, they are unable to safely provide long-term. Given the patient's history of neglect of self-care, medication nonadherence, and possible cognitive deficits we are going to investigate structured residential programs as part of our discharge planning. 09/03 -patient has consistently refused assistance with housing, insisting that she has a house in [place], although has not been able to provide an address and her family states this is not true. 09/06 - Patient's grandson called unit yesterday to provide additional information, stating the patient has been homeless for quite some time and there is no valid address for the patient (4) Involuntary commitment: 09/03 -patient on a 304 IOC, readmitted on a 302. We will file for a 306 conversion hearing. 09/04 - 306 hearing scheduled for 09/05; anticipate referral to [facility]. 09/05 -306 conversion granted, now here on a 304 involuntary commitment. 09/07 - Referral packet sent to [facility] on 09/06 (5) Nicotine abuse: 09/02 - Nicotine Patch 7mg topical daily resumed, and smoking cessation to be done when pt is in more apposite mental state to do so Inventory Assets Strengths: concerned family members, pleasant on approach Needs: stable housing, improved compliance to medication and treatment plan Risk Factors Assessment Male: No : No Do You Have Access To A Gun?: No Health Problems: No Mental Health Diagnoses: Yes Substance Use Disorders: No Previous Attempt: Yes (Per family, patient denies) Previous Psychiatric Hospitalization: Yes Hopelessness: No Smoker: Yes Protective Factors Assessment : No Responsible for Young Children: No Employed: No Stable Relationships: No Supportive Family: No Good Rapport with Provider: No Interval History Identifying Information ANDREW CYR is a 63-year-old F who currently is homeless in [facility], has a history of schizoaffective disorder, bipolar type, and was admitted on 09/03/19 05:42 on a 302 involuntary commitment for psychosis, suicidal ideation, inability to provide for basic needs, and medication noncompliance. Chief Complaint "Good. Thank you." Review of Systems Notes Constitutional: denied Cardiovascular: denied Respiratory: denied Gastrointestinal: denied Neurological: denied Psychiatric: denies symptoms other than stated above Total of at least 10 systems reviewed, pertinent positives as above and in HPI. Sleep Information Total Hours of Sleep: 8.75 Sleep Comments: pt on q-15 minute checks Meal Information Percent Meal Consumed - Breakfast: 100 Percent Meal Consumed - Lunch: 100 Percent Meal Consumed - Dinner: 100 Nutrition Comment: documented from the pt. meal record Subjective Subjective Patient was seen & assessed and interval progress reviewed with treatment team. Staff report the patient has continued to be somewhat withdrawn to her room, but continues to be cooperative with staff. Meeting scheduled for tomorrow with her employment case manager. Still awaiting word on acceptance decision to [facility]. Pt was seen today to assess progress since admission. Slovenian-Sammarinese conversation was conducted with assistance from [employer] interpretive service - [place] #[id number]. Pt states she is "good. Thank you." She denies questions or concerns she wishes to discuss today and continues to deny any physical complaints. Pt reports decent sleep and appetite. Questions related to orientation were asked today, with patient being oriented to self and place - aware she is at "[facility]" in "[place]." When asked the date, patient looks to a Slovenian calendar staff had provided to the patient for August. Pt guesses "the year is 2019, and I think it is August......eh...ah...eh...18. I don't think that matches with the date right on there." Pt was reassured that we would provide her with an updated calendar, as today is September 19. She then laughs and states " Oh, yes. That's why I'm so lost." When asked more about feeling lost, the patient admits "I am lost in my time, that is a fact. But I am not getting confused." When patient was asked about the presence of auditory/visual hallucinations (phrased as "getting visits from or hearing the voices of family or friends in your hospital room") the patient laughs again and states "I don't think I am going crazy yet." Pt did request to have a radio provided, as she reports the batteries are in the one she had been using, but otherwise she denied needs or concerns. As we ended our session with the cotton inspector, patient was observed to be rather giddy and actually told the cotton inspector that she thought he was "divine, very cute", and continued to wink and laugh. Although patient denied hallucinations, this provider did observe that she began speaking to herself in her room after this provider left and had closed the door. Physical Exam Psychiatric Orientation: alert, oriented to person, oriented to place and cooperative (pleasant today) Rough orientation to time, believing it to be 09/07/2019 - calendar provided in room was still showing month of August, and confusion may also be related to her prolonged hospitalization Apperance: appropriately dressed (casually, in t-shirt and leggings) and + disheveled (hair appearing unkempt, awoken from sleep) Eye Contact: good eye contact Motor Behavior: no abnormal motor movements (observed while sitting on edge of bed) Speech: normal rate/rhythm/volume of speech Affect: euthymic affect Mood: no depressed mood ("good") Thought Process: + concrete thought process Thought Content: not paranoid, no delusions and no persecution Though conversation was relatively superficial Suicidal Thoughts: denies suicidal thoughts Homicidal Thoughts: denies homicidal thoughts Hallucinations: no auditory hallucinations and no visual hallucinations Pt denied A/V hallucinations, but was observed to be speaking to herself in her room after this provider left and closed the door Cognition: attention grossly intact and language grossly intact Insight: + impaired insight Judgement: + impaired judgement Vital Signs (Past 24 Hours) Last Vital Signs Temp 36.8 C 09/20/19 06:24 Pulse 73 09/20/19 06:24 Resp 18 09/20/19 06:24 BP 148/85 H 09/20/19 06:24 Pulse Ox 95 09/03/19 05:47 Results & Data ([facility]) Current Inpatient Medications Current Inpatient Medications: Current Inpatient Medications Acetaminophen (Tylenol) 650 mg PO Q4H PRN PRN Reason: Headache or Minor Fever Stop: 10/03/19 05:41 Last Admin: 09/04/19 03:41 Dose: 650 mg Documented by: Al Hydrox/Mg Hydrox/Simethicone (Maalox) 30 ml PO Q4H PRN PRN Reason: GI Upset Stop: 10/03/19 05:41 Bismuth Subsalicylate (Kaopectate) 15 ml PO PRN PRN PRN Reason: Loose Stool Stop: 10/03/19 05:41 Docusate Sodium (Colace) 100 mg PO BID [facility] Stop: 10/05/19 08:59 Last Admin: 09/20/19 08:25 Dose: 100 mg Documented by: Hydroxyzine HCl (Vistaril) 50 mg PO HSZ PRN PRN Reason: Insomnia Stop: 10/03/19 05:41 Hydroxyzine HCl (Vistaril) 25 mg PO Q4H PRN PRN Reason: Anxiety Stop: 10/03/19 05:41 Levothyroxine Sodium (Synthroid) 75 mcg PO DAILYBB [facility] Stop: 10/03/19 07:59 Last Admin: 09/20/19 08:25 Dose: 75 mcg Documented by: Vowinckel Carbonate (Eskalith) 450 mg PO BID [facility] Stop: 10/03/19 20:59 Last Admin: 09/20/19 08:25 Dose: 450 mg Documented by: Magnesium Hydroxide (Milk Of Magnesia) 30 ml PO DAILY PRN PRN Reason: Constipation Stop: 10/03/19 05:41 Miscellaneous (Remove Nicoderm Patch) 1 ea N/A DAILY@0859 [facility] Stop: 10/04/19 08:58 Last Admin: 09/20/19 08:26 Dose: 1 ea Documented by: Nicotine (Nicoderm Cq) 7 mg TD QAM [facility] Stop: 10/03/19 16:29 Last Admin: 09/20/19 08:26 Dose: 7 mg Documented by: Simvastatin (Zocor) 10 mg PO HS [facility] Stop: 10/03/19 21:59 Last Admin: 09/19/19 20:37 Dose: 10 mg Documented by: Sodium Chloride (Vanoss Nasal) 1 - 2 sprays NA PRN PRN PRN Reason: Nasal Dryness/Congestion Stop: 10/03/19 05:41 Mental Health & Subst Abuse Tx Psychiatrist Name of Psychiatrist: Jackelin Psychiatrist's Date of Appointment with Psychiatrist: 09/14/19 Time of Appointment with Psychiatrist: 11:00 a.m. [id number] [facility] [id number] [facility] Name of Therapist: None [employer] Name of Super[employer]: [employer] - Lizzy Katherin Phone Number for [employer]: [phone] Post Discharge Appointments Primary Care Physician Name Of Family Doctor: [facility] Primary Care Provider Appointment Comment: [id number], [address], [place] [address]
[2019-09-20] MEDS: SIMVASTATIN 10 MG TAB PO SCH (20:32)
[2019-09-21] MEDS: DOCUSATE SODIUM 100 MG CAP PO SCH ×2 (08:43→20:40)
[2019-09-21] MEDS: LEVOTHYROXINE SODIUM 75 MCG TABLET PO SCH (08:43)
[2019-09-21] MEDS: LITHIUM CARBONATE 450 MG TABCR PO SCH ×2 (08:43→20:40)
[2019-09-21] MEDS: NICOTINE 7 MG/24 HR TDSY TD SCH (08:50)
--- NOTE | 2019-09-21 12:18 | Psychiatric Progress Note ---
Date of Service September 21, 2019 Impression / Recommendations Impression 63-year-old Afghan female with schizoaffective disorder bipolar type admitted on a 302 commitment 4 days after being discharged from this unit on 08/29 after a 27-day hospitalization. She was discharged on a 304 IOC, and return to the ER later that same day, after police were called due to bizarre behavior at a local grocery store, but was again discharged. Readmitted with psychotic symptoms including paranoia, delusions of persecution (that family and people at the skilled nursing were trying to poison/harm her), refusing to eat with hypokalemia, homelessness, delusions that she owns a home, and inability to provide for her own basic needs. Additionally, family members who petitioned reported she made suicidal statements and walked into traffic, and reported delusions that her son had stabbed her in her intestines were hanging out. They also reported she had been noncompliant with oral psychotropic medications, and although her briefcase sewer assisted her to fill these on the day of discharge, she did not bring them into the hospital with her and says she does not know where they are. She is repeatedly demonstrated complete inability to provide for her own basic needs outside of the hospital, including health, welfare, skilled nursing, food, and safety. Inpatient treatment is medically necessary due to the severity of her symptoms and risk for suicide if discharged. She is now on a 304 involuntary commitment, and we are recommending long-term inpatient treatment at the [facility]. Referral packet was sent for review on 09/07/2019, we still have not received confirmation that the packet was received despite several attempts at communication. (1) Schizoaffective disorder, bipolar type: 09/03/19 -The patient has been admitted to the locked, secured behavioral health unit and has been placed in special observation room. She is also being monitored with close observations and every 15-minute direct observation. When more stable she will be actively encouraged to participate in individual, group, and activity therapies. We will also attempt to involve the family if the patient permits us to and if they agree. - Resuming medications as was rx'd at time of discharge on 08/29 including po Invega, lithium, and Sustenna. 09/03 -continue current medications, patient is taking them. -File for 306 conversion hearing to be held 09/06/2019. She will likely need referral to the [facility] due to the need for long-term inpatient treatment. -Reviewed FLP and FG from recent hospitalization 08/07/2019: Cholesterol 221, glucose 109, other values within normal limits. -Attempt to involve family is able; son-in-law Poli is petitioner and was involved in hospitalization so we will ask staff to contact him for collateral information and to determine the family's ability to assist with discharge planning and housing. She has very limited supports in the community and if they are unable to assist her with housing and care, she will likely require long-term hospitalization. -Continue private room for psychosis. 09/04 - Continue current medication regimen - patient has been compliant with medications in this structured environment - 306 conversion hearing scheduled for 09/05 - Meeting with briefcase sewer today to discuss treatment options and continue attempts to build rapport - Referral to [facility] is being recommended at this time has patient has repeatedly demonstrated an inability to care for self and provide for basic needs without the support of a structured psychiatric setting. - EKG (WNL). PPD was refused by patient - CXR ordered 09/05 -306 hearing held and patient converted to a 304 involuntary commitment. -Referred to [facility] for long-term inpatient treatment, as patient is severely ill and unable to provide for her own basic needs as a result of her mental illness, and treatment for 27 days on our acute unit was insufficient for successful transition to the community. She was at [facility] for 4 months within the past year, and did respond to treatment there, so returned to the [facility] as recommended for long-term treatment of SPMI. -EKG and chest x-ray completed for [facility] referral. 09/06 - Continue current medication regimen - Referral to [facility] is being prepared, approval was [place] received from the county - Ongoing attempt to build rapport with psychiatric briefcase sewer 09/07 - 09/09 - Continue current medication regimen - Referral sent to [facility] on 09/07/2019 for recommended long- term psychiatric hospitalization based on chronic medication/treatment non- compliance and repeated demonstration of inability to care for self outside of a structured psychiatric setting. - Pt was informed of [facility] referral today during encounter 09/10 - Continue current medication regimen - [facility] referral sent on 09/07/2019 - requesting updates regarding when case is anticipated to be reviewed and ensure information was received - Pt continues to demand to leave, unable to appreciated the severity of her condition. Ongoing concern related to patient's repeated demonstration of inability to care for self outside of a structured psychiatric setting. 09/11 - Continue current medication regimen - Awaiting acceptance at [facility]. Ongoing concern related to patient's repeated demonstration of inability to care for self outside of a structured psychiatric setting. 09/12 - 09/14 - Pt due for next injection of Invega Sustenna 234mg IM on 09/16. Oral supplementation was continued from last hospitalization due to concern for ongoing instability with regard to psychotic symptoms. In preparation for first maintenance dose, will reduce oral supplementation to 3mg qAM and discontinue oral paliperidone on 09/16. Continue lithium 450mg BID unchanged. - Awaiting replay for [facility] regarding referral. Ongoing concern related to patient's repeated demonstration of inability to care for self outside of a structured psychiatric setting. Pt has consistently not been agreeable to diversion planning as a result of fixed delusional beliefs that she has family support, that she has a house to live in, and that she has a lot of money - none of these statements confirmed to be true. 09/15 -Continue treatment plan as previously prescribed 09/16 -now fully converted to invega sustenna. 09/17 - Continue current treatment plan 09/18 - 09/20 - Continue current treatment plan - Confirmed that information from patient's hospitalization at our facility was received by [facility], but case has not yet been reviewed. Still awaiting determination of acceptance status. (2) Noncompliance with medication regimen: 09/02 - Unable to clarify if pt has been taking her medications regularly in the days since discharge. She at first indicated that she was not then indicated the medications arein a bag of hers but did not indicate actually taking them. The patient also claims to not recall the names of any of her medications and reports that she does not have the conditions for which her known medications are clearly intended. Possible cognitive impairments. might be impacting medication compliance. language impairments with pt not speaking Bulgarian impacting compliance concerns. -The patient's underlying psychiatric condition will be actively treated. It is hoped that with treatment we will be able to improve medication compliance and also address aspects that impact compliance and improve this with appropriate interventions. CANTOR form of Invega to be continued at this time, next dose not due for another 2 weeks. Pt took meds this morning that were offered to her but given her extensive non compliance prior to, during and seeming after recent admission and lack of insight to her dx and presentation and indicating that recent hospitalization was quite helpful for her and her indicating wanting to continue her medications as was rx' at end of recent [facility] admission and were instructed to take at that discharge. I am in favor of medication over objection if pt objects to taking h er medication during the course of this admission or if it is determined that pt is checking or not actually taking her medications. (3) Homeless: 09/03/19 -In the past, the patient has lived with family members. However, this is clearly not an option at the present time. The context is that the patient reportedly was in [facility] approximately a year because of her making terroristic threats against the family. While it does seem clear that the family wants to help protect her, they are unable to safely provide skilled nursing. Given the patient's history of neglect of self-care, medication nonadherence, and possible cognitive deficits we are going to investigate structured residential programs as part of our discharge planning. 09/03 -patient has consistently refused assistance with housing, insisting that she has a house in [place], although has not been able to provide an address and her family states this is not true. 09/06 - Patient's grandson called unit yesterday to provide additional information, stating the patient has been homeless for quite some time and there is no valid address for the patient (4) Involuntary commitment: 09/03 -patient on a 304 IOC, readmitted on a 302. We will file for a 306 conversion hearing. 09/04 - 306 hearing scheduled for 09/05; anticipate referral to [facility]. 09/05 -306 conversion granted, now here on a 304 involuntary commitment. 09/07 - Referral packet sent to [facility] on 09/06 (5) Nicotine abuse: 09/02 - Nicotine Patch 7mg topical daily resumed, and smoking cessation to be done when pt is in more apposite mental state to do so Inventory Assets Strengths: concerned family members, pleasant on approach Needs: stable housing, improved compliance to medication and treatment plan Risk Factors Assessment Male: No : No Do You Have Access To A Gun?: No Health Problems: No Mental Health Diagnoses: Yes Substance Use Disorders: No Previous Attempt: Yes (Per family, patient denies) Previous Psychiatric Hospitalization: Yes Hopelessness: No Smoker: Yes Protective Factors Assessment : No Responsible for Young Children: No Employed: No Stable Relationships: No Supportive Family: No Good Rapport with Provider: No Interval History Identifying Information ANDREW CYR is a 63-year-old F who currently is homeless in [facility], has a history of schizoaffective disorder, bipolar type, and was admitted on 09/03/19 05:42 on a 302 involuntary commitment for psychosis, suicidal ideation, inability to provide for basic needs, and medication noncompliance. Chief Complaint "Fine. Thank you." Review of Systems Notes Constitutional: denied Cardiovascular: denied Respiratory: denied Gastrointestinal: denied Neurological: denied Psychiatric: denies symptoms other than stated above Total of at least 10 systems reviewed, pertinent positives as above and in HPI. Sleep Information Total Hours of Sleep: 6 Sleep Comments: pt on q-15 minute checks Meal Information Percent Meal Consumed - Breakfast: 100 Percent Meal Consumed - Lunch: 100 Percent Meal Consumed - Dinner: 100 Nutrition Comment: documented from the pt. meal record Subjective Subjective Patient was seen & assessed and interval progress reviewed with nursing and social work. Staff report the patient has tolerated having a roommate. Still awaiting information from [facility] regarding acceptance. Pt was seen today to assess progress since admission. Serbian-Bulgarian conversation conducted with assistance from [employer] interpretive service - Julia #[id number]. Pt states she is "fine. Thank you." She denies current issues or questions. She also denies physical concerns at this time. Pt does inquire about getting a new radio, as her's is currently not working. She denies concerns related to her mood, sleep, or appetite and has no other needs or concerns at this time. Physical Exam Psychiatric Orientation: alert, oriented to person, oriented to place and cooperative (superficially pleasant) Apperance: appropriately dressed (wearing t-shirt and pajama pants) and + disheveled (hair appearing unkempt) Eye Contact: + fair eye contact Motor Behavior: no abnormal motor movements (observed while sitting upright on edge of bed) Speech: normal rate/rhythm/volume of speech Affect: + blunted affect (appearing somewhat fatigued, but intermittently smiles politely) Mood: no depressed mood ("Fine") Thought Process: + concrete thought process Thought Content: no delusions (does not verbalize delusional thoughts at time of encounter) Estimated Intelligence: consistent with education level Insight: + impaired insight Judgement: + impaired judgement Vital Signs (Past 24 Hours) Last Vital Signs Temp 36 C L 09/21/19 06:51 Pulse 76 09/21/19 06:53 Resp 18 09/21/19 06:51 BP 115/50 L 09/21/19 06:53 Pulse Ox 95 09/03/19 05:47 Results & Data ([facility]) Current Inpatient Medications Current Inpatient Medications: Current Inpatient Medications Acetaminophen (Tylenol) 650 mg PO Q4H PRN PRN Reason: Headache or Minor Fever Stop: 10/03/19 05:41 Last Admin: 09/04/19 03:41 Dose: 650 mg Documented by: Al Hydrox/Mg Hydrox/Simethicone (Maalox) 30 ml PO Q4H PRN PRN Reason: GI Upset Stop: 10/03/19 05:41 Bismuth Subsalicylate (Kaopectate) 15 ml PO PRN PRN PRN Reason: Loose Stool Stop: 10/03/19 05:41 Docusate Sodium (Colace) 100 mg PO BID [facility] Stop: 10/05/19 08:59 Last Admin: 09/21/19 08:43 Dose: 100 mg Documented by: Hydroxyzine HCl (Vistaril) 50 mg PO HSZ PRN PRN Reason: Insomnia Stop: 10/03/19 05:41 Hydroxyzine HCl (Vistaril) 25 mg PO Q4H PRN PRN Reason: Anxiety Stop: 10/03/19 05:41 Levothyroxine Sodium (Synthroid) 75 mcg PO DAILYBB [facility] Stop: 10/03/19 07:59 Last Admin: 09/21/19 08:43 Dose: 75 mcg Documented by: [place] Carbonate (Eskalith) 450 mg PO BID [facility] Stop: 10/03/19 20:59 Last Admin: 09/21/19 08:43 Dose: 450 mg Documented by: Magnesium Hydroxide (Milk Of Magnesia) 30 ml PO DAILY PRN PRN Reason: Constipation Stop: 10/03/19 05:41 Miscellaneous (Remove Nicoderm Patch) 1 ea N/A DAILY@0859 [facility] Stop: 10/04/19 08:58 Last Admin: 09/21/19 08:50 Dose: 1 ea Documented by: Nicotine (Nicoderm Cq) 7 mg TD QAM [facility] Stop: 10/03/19 16:29 Last Admin: 09/21/19 08:50 Dose: 7 mg Documented by: Simvastatin (Zocor) 10 mg PO HS [facility] Stop: 10/03/19 21:59 Last Admin: 09/20/19 20:32 Dose: 10 mg Documented by: Sodium Chloride ([place] Nasal) 1 - 2 sprays NA PRN PRN PRN Reason: Nasal Dryness/Congestion Stop: 10/03/19 05:41 Mental Health & Subst Abuse Tx Psychiatrist Name of Psychiatrist: Jackelin Psychiatrist's Date of Appointment with Psychiatrist: 09/14/19 Time of Appointment with Psychiatrist: 11:00 a.m. Psychiatric [facility]ment [facility] [id number] [id number] Therapist Name of Therapist: None Refinery Operator Helper Crude Unit Name of Refinery Operator Helper Crude Unit: [employer] [facility] - Lizzy Pandey Phone Number for Refinery Operator Helper [employer] Unit: [phone] Post Discharge Appointments Primary Care Physician Name Of Family Doctor: [facility] Primary Care Provider Appointment Comment: [address], [address], [place] [address]
[2019-09-21] MEDS: SIMVASTATIN 10 MG TAB PO SCH (20:40)
[2019-09-22] MEDS: DOCUSATE SODIUM 100 MG CAP PO SCH ×2 (08:47→20:50)
[2019-09-22] MEDS: LITHIUM CARBONATE 450 MG TABCR PO SCH ×2 (08:47→20:51)
[2019-09-22] MEDS: LEVOTHYROXINE SODIUM 75 MCG TABLET PO SCH (08:47)
[2019-09-22] MEDS: NICOTINE 7 MG/24 HR TDSY TD SCH (08:54)
--- NOTE | 2019-09-22 09:58 | Psychiatric Progress Note ---
Date of Service September 22, 2019 Impression / Recommendations Impression 63-year-old Hungarian female with schizoaffective disorder bipolar type admitted on a 302 commitment 4 days after being discharged from this unit on 08/29 after a 27-day hospitalization. She was discharged on a 304 IOC, and return to the ER later that same day, after police were called due to bizarre behavior at a local grocery store, but was again discharged. Readmitted with psychotic symptoms including paranoia, delusions of persecution (that family and people at the long-term were trying to poison/harm her), refusing to eat with hypokalemia, homelessness, delusions that she owns a home, and inability to provide for her own basic needs. Additionally, family members who petitioned reported she made suicidal statements and walked into traffic, and reported delusions that her son had stabbed her in her intestines were hanging out. They also reported she had been noncompliant with oral psychotropic medications, and although her case investigator assisted her to fill these on the day of discharge, she did not bring them into the hospital with her and says she does not know where they are. She is repeatedly demonstrated complete inability to provide for her own basic needs outside of the hospital, including health, welfare, long-term, food, and safety. Inpatient treatment is medically necessary due to the severity of her symptoms and risk for suicide if discharged. She is now on a 304 involuntary commitment, and we are recommending long-term inpatient treatment at the [facility]. Referral packet was sent for review on 09/07/2019, we still have not received confirmation that the packet was received despite several attempts at communication. Reviewed 09/21. Plan: continue current meds and tx plan. Inventory Assets Strengths: concerned family members, pleasant on approach Needs: stable housing, improved compliance to medication and treatment plan Risk Factors Assessment Male: No : No Do You Have Access To A Gun?: No Health Problems: No Mental Health Diagnoses: Yes Substance Use Disorders: No Previous Attempt: Yes (Per family, patient denies) Previous Psychiatric Hospitalization: Yes Hopelessness: No Smoker: Yes Protective Factors Assessment : No Responsible for Young Children: No Employed: No Stable Relationships: No Supportive Family: No Good Rapport with Provider: No Interval History Identifying Information ANDREW CYR is a 63-year-old F who currently is homeless in [facility], has a history of schizoaffective disorder, bipolar type, and was admitted on 09/03/19 05:42 on a 302 involuntary commitment for psychosis, suicidal ideation, inability to provide for basic needs, and medication noncompliance. Chief Complaint talking to self. Review of Systems Sleep Information Total Hours of Sleep: 6.5 Sleep Comments: awake at 0330 and again at 0520 for drinks. pleasant and grateful with staff Meal Information Percent Meal Consumed - Breakfast: 100 Percent Meal Consumed - Lunch: 100 Percent Meal Consumed - Dinner: 100 Nutrition Comment: documented from the pt. meal record Subjective Subjective Patient was seen & assessed and interval progress reviewed with treatment team. Continues to question why can't leave as has a home. She is often close to doors/engages staff by door but not touching doors. Will talk to self and sleep with lights on. She declines jewel flat surfacer when meeting with me as brightens with my Setswana. No med changes, no word re: formerly [facility] referral. Physical Exam Psychiatric Orientation: alert Apperance: appropriately groomed Eye Contact: + fair eye contact Motor Behavior: steady gait and station hyperverbal at times Affect: euthymic affect Thought Process: + tangential thought process Thought Content: + delusions Suicidal Thoughts: denies suicidal thoughts Homicidal Thoughts: denies homicidal thoughts Hallucinations: no auditory hallucinations and no visual hallucinations but may be responding to internal stimuli, hard to tell how much is cultural/interacting with spirits. Cognition: + remote memory not intact and + attention not intact Insight: + severely impaired insight Judgement: + severely impaired judgement Vital Signs (Past 24 Hours) Last Vital Signs Temp 36.6 C 09/22/19 06:00 Pulse 77 09/22/19 06:00 Resp 16 09/22/19 06:00 BP 123/79 09/22/19 06:00 Pulse Ox 95 09/03/19 05:47 Results & Data (U) Current Inpatient Medications Current Inpatient Medications: Current Inpatient Medications Acetaminophen (Tylenol) 650 mg PO Q4H PRN PRN Reason: Headache or Minor Fever Stop: 10/03/19 05:41 Last Admin: 09/04/19 03:41 Dose: 650 mg Documented by: Al Hydrox/Mg Hydrox/Simethicone (Maalox) 30 ml PO Q4H PRN PRN Reason: GI Upset Stop: 10/03/19 05:41 Bismuth Subsalicylate (Kaopectate) 15 ml PO PRN PRN PRN Reason: Loose Stool Stop: 10/03/19 05:41 Docusate Sodium (Colace) 100 mg PO BID [facility] Stop: 10/05/19 08:59 Last Admin: 09/22/19 08:47 Dose: 100 mg Documented by: Hydroxyzine HCl (Vistaril) 50 mg PO HSZ PRN PRN Reason: Insomnia Stop: 10/03/19 05:41 Hydroxyzine HCl (Vistaril) 25 mg PO Q4H PRN PRN Reason: Anxiety Stop: 10/03/19 05:41 Levothyroxine Sodium (Synthroid) 75 mcg PO DAILYBB [facility] Stop: 10/03/19 07:59 Last Admin: 09/22/19 08:47 Dose: 75 mcg Documented by: [place] Carbonate (Eskalith) 450 mg PO BID [facility] Stop: 10/03/19 20:59 Last Admin: 09/22/19 08:47 Dose: 450 mg Documented by: Magnesium Hydroxide (Milk Of Magnesia) 30 ml PO DAILY PRN PRN Reason: Constipation Stop: 10/03/19 05:41 Miscellaneous (Remove Nicoderm Patch) 1 ea N/A DAILY@0859 [facility] Stop: 10/04/19 08:58 Last Admin: 09/22/19 08:54 Dose: 1 ea Documented by: Nicotine (Nicoderm Cq) 7 mg TD QAM [facility] Stop: 10/03/19 16:29 Last Admin: 09/22/19 08:54 Dose: 7 mg Documented by: Simvastatin (Zocor) 10 mg PO HS [facility] Stop: 10/03/19 21:59 Last Admin: 09/21/19 20:40 Dose: 10 mg Documented by: Sodium Chloride ([place] Nasal) 1 - 2 sprays NA PRN PRN PRN Reason: Nasal Dryness/Congestion Stop: 10/03/19 05:41 Mental Health & Subst Abuse Tx Psychiatrist Name of Psychiatrist: Jackelin Psychiatrist'ok Date of Appointment with Psychiatrist: 09/14/19 Time of Appointment with Psychiatrist: 11:00 a.m. Psychiatric Appointment Comment: [address], [place] [address] Therapist Name of Therapist: None It Engineer Name of It Engineer: [employer] - Lizzy Pandey Phone Number for It Engineer: [phone] Post Discharge Appointments Primary Care Physician Name Of Family Doctor: [facility] Primary Care Provider Appointment Comment: [id number], [address], [place] [address]
[2019-09-22] MEDS: SIMVASTATIN 10 MG TAB PO SCH (20:51)
[2019-09-23] MEDS: LEVOTHYROXINE SODIUM 75 MCG TABLET PO SCH (09:36)
[2019-09-23] MEDS: LITHIUM CARBONATE 450 MG TABCR PO SCH ×2 (09:36→21:45)
[2019-09-23] MEDS: NICOTINE 7 MG/24 HR TDSY TD SCH (09:37)
[2019-09-23] MEDS: DOCUSATE SODIUM 100 MG CAP PO SCH ×2 (09:37→21:43)
--- NOTE | 2019-09-23 11:04 | Psychiatric Progress Note ---
Date of Service September 23, 2019 Impression / Recommendations Impression 63-year-old Citizen Of [place] female with schizoaffective disorder bipolar type admitted on a 302 commitment 4 days after being discharged from this unit on 08/29 after a 27-day hospitalization. She was discharged on a 304 IOC, and return to the ER later that same day, after police were called due to bizarre behavior at a local grocery store, but was again discharged. Readmitted with psychotic symptoms including paranoia, delusions of persecution (that family and people at the group home were trying to poison/harm her), refusing to eat with hypokalemia, homelessness, delusions that she owns a home, and inability to provide for her own basic needs. Additionally, family members who petitioned reported she made suicidal statements and walked into traffic, and reported delusions that her son had stabbed her in her intestines were hanging out. They also reported she had been noncompliant with oral psychotropic medications, and although her caser shoe parts assisted her to fill these on the day of discharge, she did not bring them into the hospital with her and says she does not know where they are. She is repeatedly demonstrated complete inability to provide for her own basic needs outside of the hospital, including health, welfare, group home, food, and safety. Inpatient treatment is medically necessary due to the severity of her symptoms and risk for suicide if discharged. She is now on a 304 involuntary commitment, and we are recommending long-term inpatient treatment at the [facility]. Referral packet was sent for review on 09/07/2019, we still have not received confirmation that the packet was received despite several attempts at communication. Reviewed 09/21-. 09/21 Plan: continue current meds and tx plan. Reinstitute medically necessary private room as hx of aggression, labile mood, poor ability to keep contact precautions with COVID, hx homelessness higher risk category Inventory Assets Strengths: concerned family members, pleasant on approach Needs: stable housing, improved compliance to medication and treatment plan Risk Factors Assessment Male: No : No Do You Have Access To A Gun?: No Health Problems: No Mental Health Diagnoses: Yes Substance Use Disorders: No Previous Attempt: Yes (Per family, patient denies) Previous Psychiatric Hospitalization: Yes Hopelessness: No Smoker: Yes Protective Factors Assessment : No Responsible for Young Children: No Employed: No Stable Relationships: No Supportive Family: No Good Rapport with Provider: No Interval History Identifying Information ANDREW CYR is a 63-year-old F who currently is homeless in [facility], has a history of schizoaffective disorder, bipolar type, and was admitted on 09/03/19 05:42 on a 302 involuntary commitment for psychosis, suicidal ideation, inability to provide for basic needs, and medication noncompliance. Chief Complaint "I can't stay here another 20 days, why doctora?". Review of Systems Sleep Information Total Hours of Sleep: 7.75 Sleep Comments: awake at 0330 and again at 0520 for drinks. pleasant and grateful with staff Meal Information Percent Meal Consumed - Breakfast: 100 Percent Meal Consumed - Lunch: 100 Percent Meal Consumed - Dinner: 100 Nutrition Comment: documented from the pt. meal record Subjective Subjective Patient was seen & assessed and interval progress reviewed with nursing. Oriented patient that it is September 22 and she remains hospitalized on a housing court judge's order. She denies understanding of why the police brought her back to the hospital and maintains that she has a friend Joseline she can live with. Staff report she was quite upset, rambling and talking to self that was distressing to roommate yesterday after her length of stay and she has been more reclusive to her room. Physical Exam Psychiatric Orientation: alert Apperance: appropriately groomed Eye Contact: + fair eye contact Motor Behavior: no abnormal motor movements hyperverbal Affect: + labile affect Mood: + anxious mood Thought Process: + tangential thought process Thought Content: + delusions Suicidal Thoughts: denies suicidal thoughts Homicidal Thoughts: denies homicidal thoughts Hallucinations: no auditory hallucinations and no visual hallucinations Cognition: + remote memory not intact and + attention not intact Insight: + severely impaired insight Judgement: + severely impaired judgement Vital Signs (Past 24 Hours) Last Vital Signs Temp 36.4 C L 09/23/19 06:42 Pulse 73 09/23/19 06:42 Resp 18 09/23/19 06:42 BP 143/80 H 09/23/19 06:42 Pulse Ox 95 09/03/19 05:47 Results & Data ([facility]) Current Inpatient Medications Current Inpatient Medications: Current Inpatient Medications Acetaminophen (Tylenol) 650 mg PO Q4H PRN PRN Reason: Headache or Minor Fever Stop: 10/03/19 05:41 Last Admin: 09/04/19 03:41 Dose: 650 mg Documented by: Al Hydrox/Mg Hydrox/Simethicone (Maalox) 30 ml PO Q4H PRN PRN Reason: GI Upset Stop: 10/03/19 05:41 Bismuth Subsalicylate (Kaopectate) 15 ml PO PRN PRN PRN Reason: Loose Stool Stop: 10/03/19 05:41 Docusate Sodium (Colace) 100 mg PO BID [facility] Stop: 10/05/19 08:59 Last Admin: 09/23/19 09:37 Dose: 100 mg Documented by: Hydroxyzine HCl (Vistaril) 50 mg PO HSZ PRN PRN Reason: Insomnia Stop: 10/03/19 05:41 Hydroxyzine HCl (Vistaril) 25 mg PO Q4H PRN PRN Reason: Anxiety Stop: 10/03/19 05:41 Levothyroxine Sodium (Synthroid) 75 mcg PO DAILYBB [facility] Stop: 10/03/19 07:59 Last Admin: 09/23/19 09:36 Dose: 75 mcg Documented by: [place] Carbonate (Eskalith) 450 mg PO BID [facility] Stop: 10/03/19 20:59 Last Admin: 09/23/19 09:36 Dose: 450 mg Documented by: Magnesium Hydroxide (Milk Of Magnesia) 30 ml PO DAILY PRN PRN Reason: Constipation Stop: 10/03/19 05:41 Miscellaneous (Remove Nicoderm Patch) 1 ea N/A DAILY@0859 [facility] Stop: 10/04/19 08:58 Last Admin: 09/23/19 09:37 Dose: 1 ea Documented by: Nicotine (Nicoderm Cq) 7 mg TD QAM [facility] Stop: 10/03/19 16:29 Last Admin: 09/23/19 09:37 Dose: 7 mg Documented by: Simvastatin (Zocor) 10 mg PO HS [facility] Stop: 10/03/19 21:59 Last Admin: 09/22/19 20:51 Dose: 10 mg Documented by: Sodium Chloride ([place] Nasal) 1 - 2 sprays NA PRN PRN PRN Reason: Nasal Dryness/Congestion Stop: 10/03/19 05:41 Mental Health & Subst Abuse Tx Psychiatrist Name of Psychiatrist: Jackelin Psychiatrist's Date of Appointment with Psychiatrist: 09/14/19 Time of Appointment with Psychiatrist: 11:00 a.m. Psychiatric Appointment Comment: [id number] [facility] [place] [id number] Therapist Name of Therapist: None Residential Care Facility Manager Name of Residential Care Facility Manager: [facility] Lizzy Pandey Phone Number for Residential Care Facility Manager: [phone] Post Discharge Appointments Primary Care Physician Name Of Family Doctor: [facility] Primary Care Provider Appointment Comment: [id number] [facility], [address], [place] [address]
[2019-09-23] MEDS: SIMVASTATIN 10 MG TAB PO SCH (21:45)
[2019-09-24] MEDS: LEVOTHYROXINE SODIUM 75 MCG TABLET PO SCH (09:46)
[2019-09-24] MEDS: DOCUSATE SODIUM 100 MG CAP PO SCH ×2 (09:47→20:50)
[2019-09-24] MEDS: LITHIUM CARBONATE 450 MG TABCR PO SCH ×2 (09:47→20:51)
[2019-09-24] MEDS: NICOTINE 7 MG/24 HR TDSY TD SCH (09:54)
[2019-09-24] MEDS: ACETAMINOPHEN 325 MG TAB PO PRN (10:34)
--- NOTE | 2019-09-24 10:47 | Psychiatric Progress Note ---
Date of Service September 24, 2019 Impression / Recommendations Impression 63-year-old [place] female with schizoaffective disorder bipolar type admitted on a 302 commitment 4 days after being discharged from this unit on 08/29 after a 27-day hospitalization. She was discharged on a 304 IOC, and return to the ER later that same day, after police were called due to bizarre behavior at a local grocery store, but was again discharged. Readmitted with psychotic symptoms including paranoia, delusions of persecution (that family and people at the longterm were trying to poison/harm her), refusing to eat with hypokalemia, homelessness, delusions that she owns a home, and inability to provide for her own basic needs. Additionally, family members who petitioned reported she made suicidal statements and walked into traffic, and reported delusions that her son had stabbed her in her intestines were hanging out. They also reported she had been noncompliant with oral psychotropic medications, and although her bilingual patient support caseworker assisted her to fill these on the day of discharge, she did not bring them into the hospital with her and says she does not know where they are. She is repeatedly demonstrated complete inability to provide for her own basic needs outside of the hospital, including health, welfare, longterm, food, and safety. Inpatient treatment is medically necessary due to the severity of her symptoms and risk for suicide if discharged. She is now on a 304 involuntary commitment, and we are recommending long-term inpatient treatment at the [facility]. Referral packet was sent for review on 09/07/2019, we still have not received confirmation that the packet was received despite several attempts at communication. Reviewed 09/21-. 09/22 Plan: continue current meds and tx plan. Inventory Assets Strengths: concerned family members, pleasant on approach Needs: stable housing, improved compliance to medication and treatment plan. Risk Factors Assessment Male: No : No Do You Have Access To A Gun?: No Health Problems: No Mental Health Diagnoses: Yes Substance Use Disorders: No Previous Attempt: Yes (Per family, patient denies) Previous Psychiatric Hospitalization: Yes Hopelessness: No Smoker: Yes Protective Factors Assessment : No Responsible for Young Children: No Employed: No Stable Relationships: No Supportive Family: No Good Rapport with Provider: No Interval History Identifying Information ANDREW CYR is a 63-year-old F who currently is homeless in [facility], has a history of schizoaffective disorder, bipolar type, and was admitted on 09/03/19 05:42 on a 302 involuntary commitment for psychosis, suicidal ideation, inability to provide for basic needs, and medication noncompliance. Chief Complaint "doctora!", greets me in [place], declines interpretor as able to conduct interview in Vietnamese Review of Systems Sleep Information Total Hours of Sleep: 5.5 Sleep Comments: awake at 0330 and again at 0520 for drinks. pleasant and grateful with staff Meal Information Percent Meal Consumed - Breakfast: 100 Percent Meal Consumed - Lunch: 100 Percent Meal Consumed - Dinner: 100 Nutrition Comment: documented from the pt. meal record Subjective Subjective Patient was seen & assessed and interval progress reviewed with nursing and social work. No changes overnight, calmer on MNPR, actually less isolative to her room which suggests paranoia with shared space. Continues to forget date, reason for hospitalization, and asks when can leave. She is focussed on her need for abdominoplasty or hernia surgery. Abdomen is soft, non tender and non distended on exam. Staff felt may have foot pain, no swelling noted, of course has darkened hypertrophic nails and lotrimin ordered for comfort. Physical Exam Psychiatric Orientation: alert Apperance: appropriately groomed Eye Contact: + fair eye contact Motor Behavior: no abnormal motor movements Speech: normal rate/rhythm/volume of speech Affect: euthymic affect Thought Process: + perseveration and + concrete thought process Thought Content: + delusions Suicidal Thoughts: denies suicidal thoughts Homicidal Thoughts: denies homicidal thoughts Hallucinations: no auditory hallucinations (though talks to self in room) and no visual hallucinations Vital Signs (Past 24 Hours) Last Vital Signs Temp 36.6 C 09/24/19 06:29 Pulse 81 09/24/19 06:30 Resp 18 09/24/19 06:29 BP 145/83 H 09/24/19 06:30 Pulse Ox 95 09/03/19 05:47 Results & Data ([facility]) Current Inpatient Medications Current Inpatient Medications: Current Inpatient Medications Acetaminophen (Tylenol) 650 mg PO Q4H PRN PRN Reason: Headache or Minor Fever Stop: 10/03/19 05:41 Last Admin: 09/24/19 10:34 Dose: 650 mg Documented by: Al Hydrox/Mg Hydrox/Simethicone (Maalox) 30 ml PO Q4H PRN PRN Reason: GI Upset Stop: 10/03/19 05:41 Bismuth Subsalicylate (Kaopectate) 15 ml PO PRN PRN PRN Reason: Loose Stool Stop: 10/03/19 05:41 Clotrimazole (Lotrimin 1%) 1 appln EXT BID [facility] Stop: 10/24/19 20:59 Docusate Sodium (Colace) 100 mg PO BID [facility] Stop: 10/05/19 08:59 Last Admin: 09/24/19 09:47 Dose: 100 mg Documented by: Hydroxyzine HCl (Vistaril) 50 mg PO HSZ PRN PRN Reason: Insomnia Stop: 10/03/19 05:41 Hydroxyzine HCl (Vistaril) 25 mg PO Q4H PRN PRN Reason: Anxiety Stop: 10/03/19 05:41 Levothyroxine Sodium (Synthroid) 75 mcg PO DAILYBB [facility] Stop: 10/03/19 07:59 Last Admin: 09/24/19 09:46 Dose: 75 mcg Documented by: [place] Carbonate (Eskalith) 450 mg PO BID [facility] Stop: 10/03/19 20:59 Last Admin: 09/24/19 09:47 Dose: 450 mg Documented by: Magnesium Hydroxide (Milk Of Magnesia) 30 ml PO DAILY PRN PRN Reason: Constipation Stop: 10/03/19 05:41 Miscellaneous (Remove Nicoderm Patch) 1 ea N/A DAILY@0859 [facility] Stop: 10/04/19 08:58 Last Admin: 09/24/19 09:54 Dose: 1 ea Documented by: Nicotine (Nicoderm Cq) 7 mg TD QAM [facility] Stop: 10/03/19 16:29 Last Admin: 09/24/19 09:54 Dose: 7 mg Documented by: Simvastatin (Zocor) 10 mg PO HS [facility] Stop: 10/03/19 21:59 Last Admin: 09/23/19 21:45 Dose: 10 mg Documented by: Sodium Chloride ([place] Nasal) 1 - 2 sprays NA PRN PRN PRN Reason: Nasal Dryness/Congestion Stop: 10/03/19 05:41 Mental Health & Subst Abuse Tx Psychiatrist Name of Psychiatrist: Jackelin Psychiatrist's Date of Appointment with Psychiatrist: 09/14/19 Time of Appointment with Psychiatrist: 11:00 a.m. Psychiatric Appointment Comment: [id number] [facility] [place] [id number] Therapist Name of Therapist: None Tankage Grinder Name of Tankage Grinder: [facility] Lizzydenise Pandey Phone Number for Tankage Grinder: [phone] Post Discharge Appointments Primary Care Physician Name Of Family Doctor: [facility] Primary Care Provider Appointment Comment: [email or web address], [address], [place] [address]
[2019-09-24] MEDS: CLOTRIMAZOLE 1% CR 15 GM TUBE EXT SCH (20:49)
[2019-09-24] MEDS: SIMVASTATIN 10 MG TAB PO SCH (20:51)
[2019-09-25] MEDS: LEVOTHYROXINE SODIUM 75 MCG TABLET PO SCH (09:13)
[2019-09-25] MEDS: LITHIUM CARBONATE 450 MG TABCR PO SCH ×2 (09:13→20:51)
[2019-09-25] MEDS: DOCUSATE SODIUM 100 MG CAP PO SCH ×2 (09:13→20:51)
[2019-09-25] MEDS: CLOTRIMAZOLE 1% CR 15 GM TUBE EXT SCH ×2 (09:14→20:51)
[2019-09-25] MEDS: NICOTINE 7 MG/24 HR TDSY TD SCH (09:14)
--- NOTE | 2019-09-25 10:11 | Psychiatric Progress Note ---
Date of Service September 25, 2019 Impression / Recommendations Impression 63-year-old [place] female with schizoaffective disorder bipolar type admitted on a 302 commitment 4 days after being discharged from this unit on 08/29 after a 27-day hospitalization. She was discharged on a 304 IOC, and return to the ER later that same day, after police were called due to bizarre behavior at a local grocery store, but was again discharged. Readmitted with psychotic symptoms including paranoia, delusions of persecution (that family and people at the care home were trying to poison/harm her), refusing to eat with hypokalemia, homelessness, delusions that she owns a home, and inability to provide for her own basic needs. Additionally, family members who petitioned reported she made suicidal statements and walked into traffic, and reported delusions that her son had stabbed her in her intestines were hanging out. They also reported she had been noncompliant with oral psychotropic medications, and although her briefcase sewer assisted her to fill these on the day of discharge, she did not bring them into the hospital with her and says she does not know where they are. She is repeatedly demonstrated complete inability to provide for her own basic needs outside of the hospital, including health, welfare, care home, food, and safety. Inpatient treatment is medically necessary due to the severity of her symptoms and risk for suicide if discharged. She is now on a 304 involuntary commitment, and we are recommending long-term inpatient treatment at the [facility]. Referral packet was sent for review on 09/07/2019, we still have not received confirmation that the packet was received despite several attempts at communication. 09/24 Plan: continue current meds and tx plan. MNPR for now as less paranoid and more visible on unit. Inventory Assets Strengths: concerned family members, pleasant on approach Needs: stable housing, improved compliance to medication and treatment plan. Risk Factors Assessment Male: No : No Do You Have Access To A Gun?: No Health Problems: No Mental Health Diagnoses: Yes Substance Use Disorders: No Previous Attempt: Yes (Per family, patient denies) Previous Psychiatric Hospitalization: Yes Hopelessness: No Smoker: Yes Protective Factors Assessment : No Responsible for Young Children: No Employed: No Stable Relationships: No Supportive Family: No Good Rapport with Provider: No Interval History Identifying Information ANDREW CYR is a 63-year-old F who currently is homeless in [facility], has a history of schizoaffective disorder, bipolar type, and was admitted on 09/03/19 05:42 on a 302 involuntary commitment for psychosis, suicidal ideation, inability to provide for basic needs, and medication noncompliance. Chief Complaint "I need surgery". Review of Systems Sleep Information Total Hours of Sleep: 7.25 Sleep Comments: had fallen to sleep with overhead lights full on, 01/26 shut them off and turned the other bed's overhead light on dimly. she was noted awake and talking outloud, as in prayer, from [id number]. she had turned the bedroom light off. Meal Information Percent Meal Consumed - Breakfast: 100 Percent Meal Consumed - Lunch: 100 Percent Meal Consumed - Dinner: 100 Nutrition Comment: documented from the pt. meal record Subjective Subjective Patient was seen & assessed and interval progress reviewed with treatment team. Patient eating well but complains to me that we are not addressing her need for surgery for peritonitis. Abdomen remains soft, non-tender she is passing gas and had a bowel movement yesterdal. She declines simethicone and I suspect she is mainly preoccupied with weight gain as she has been hospitalized and eating regularly compared to homelessness. Physical Exam Psychiatric Orientation: alert Apperance: appropriately groomed Eye Contact: good eye contact Motor Behavior: no abnormal motor movements Speech: normal rate/rhythm/volume of speech Affect: euthymic affect Mood: + anxious mood Thought Process: + circumstantial thought process Thought Content: + delusions (somatic) Suicidal Thoughts: denies suicidal thoughts Homicidal Thoughts: denies homicidal thoughts Hallucinations: + auditory hallucinations and + visual hallucinations Vital Signs (Past 24 Hours) Last Vital Signs Temp 36.5 C 09/25/19 06:43 Pulse 82 09/25/19 06:43 Resp 18 09/25/19 06:43 BP 133/79 09/25/19 06:43 Pulse Ox 95 09/03/19 05:47 Results & Data ([facility]) Current Inpatient Medications Current Inpatient Medications: Current Inpatient Medications Acetaminophen (Tylenol) 650 mg PO Q4H PRN PRN Reason: Headache or Minor Fever Stop: 10/03/19 05:41 Last Admin: 09/24/19 10:34 Dose: 650 mg Documented by: Al Hydrox/Mg Hydrox/Simethicone (Maalox) 30 ml PO Q4H PRN PRN Reason: GI Upset Stop: 10/03/19 05:41 Bismuth Subsalicylate (Kaopectate) 15 ml PO PRN PRN PRN Reason: Loose Stool Stop: 10/03/19 05:41 Clotrimazole (Lotrimin 1%) 1 appln EXT BID [facility] Stop: 10/24/19 20:59 Last Admin: 09/25/19 09:14 Dose: 1 appln Documented by: Docusate Sodium (Colace) 100 mg PO BID [facility] Stop: 10/05/19 08:59 Last Admin: 09/25/19 09:13 Dose: 100 mg Documented by: Hydroxyzine HCl (Vistaril) 50 mg PO HSZ PRN PRN Reason: Insomnia Stop: 10/03/19 05:41 Hydroxyzine HCl (Vistaril) 25 mg PO Q4H PRN PRN Reason: Anxiety Stop: 10/03/19 05:41 Levothyroxine Sodium (Synthroid) 75 mcg PO DAILYBB [facility] Stop: 10/03/19 07:59 Last Admin: 09/25/19 09:13 Dose: 75 mcg Documented by: [place] Carbonate (Eskalith) 450 mg PO BID [facility] Stop: 10/03/19 20:59 Last Admin: 09/25/19 09:13 Dose: 450 mg Documented by: Magnesium Hydroxide (Milk Of Magnesia) 30 ml PO DAILY PRN PRN Reason: Constipation Stop: 10/03/19 05:41 Miscellaneous (Remove Nicoderm Patch) 1 ea N/A DAILY@0859 [facility] Stop: 10/04/19 08:58 Last Admin: 09/25/19 09:15 Dose: 1 ea Documented by: Nicotine (Nicoderm Cq) 7 mg TD QAM [facility] Stop: 10/03/19 16:29 Last Admin: 09/25/19 09:14 Dose: 7 mg Documented by: Simvastatin (Zocor) 10 mg PO HS [facility] Stop: 10/03/19 21:59 Last Admin: 09/24/19 20:51 Dose: 10 mg Documented by: Sodium Chloride ([place] Nasal) 1 - 2 sprays NA PRN PRN PRN Reason: Nasal Dryness/Congestion Stop: 10/03/19 05:41 Mental Health & Subst Abuse Tx Psychiatrist Name of Psychiatrist: Jackelin Psychiatrist's Date of Appointment with Psychiatrist: 09/14/19 Time of Appointment with Psychiatrist: 11:00 a.m. Psychiatric Appointment Comment: [id number] [facility] [place] [id number] Therapist Name of Therapist: None Fugitive Investigator Name of Fugitive Investigator: [facility] Lizzy Pandey Phone Number for Fugitive Investigator: [phone] Post Discharge Appointments Primary Care Physician Name Of Family Doctor: [facility] [place] [facility] Primary Care Provider Appointment Comment: [address] [facility], [address], [place] [address]
[2019-09-25] MEDS: SIMVASTATIN 10 MG TAB PO SCH (20:51)
[2019-09-26] MEDS: LITHIUM CARBONATE 450 MG TABCR PO SCH ×2 (07:43→21:03)
[2019-09-26] MEDS: LEVOTHYROXINE SODIUM 75 MCG TABLET PO SCH (07:43)
[2019-09-26] MEDS: DOCUSATE SODIUM 100 MG CAP PO SCH ×2 (07:43→21:02)
[2019-09-26] MEDS: NICOTINE 7 MG/24 HR TDSY TD SCH (07:44)
[2019-09-26] MEDS: CLOTRIMAZOLE 1% CR 15 GM TUBE EXT SCH ×2 (07:44→21:03)
--- NOTE | 2019-09-26 10:08 | Psychiatric Progress Note ---
Date of Service September 26, 2019 Impression / Recommendations Impression 63-year-old Armenian female with schizoaffective disorder bipolar type admitted on a 302 commitment 4 days after being discharged from this unit on 08/29 after a 27-day hospitalization. She was discharged on a 304 IOC, and return to the ER later that same day, after police were called due to bizarre behavior at a local grocery store, but was again discharged. Readmitted with psychotic symptoms including paranoia, delusions of persecution (that family and people at the snf were trying to poison/harm her), refusing to eat with hypokalemia, homelessness, delusions that she owns a home, and inability to provide for her own basic needs. Additionally, family members who petitioned reported she made suicidal statements and walked into traffic, and reported delusions that her son had stabbed her in her intestines were hanging out. They also reported she had been noncompliant with oral psychotropic medications, and although her director of casework assisted her to fill these on the day of discharge, she did not bring them into the hospital with her and says she does not know where they are. She is repeatedly demonstrated complete inability to provide for her own basic needs outside of the hospital, including health, welfare, snf, food, and safety. Inpatient treatment is medically necessary due to the severity of her symptoms and risk for suicide if discharged. She is now on a 304 involuntary commitment, and we are recommending long-term inpatient treatment at the [facility]. Referral packet was sent for review on 09/07/2019, we still have not received confirmation that the packet was received despite several attempts at communication. (1) Schizoaffective disorder, bipolar type: 09/03/19 -The patient has been admitted to the locked, secured behavioral health unit and has been placed in special observation room. She is also being monitored with close observations and every 15-minute direct observation. When more stable she will be actively encouraged to participate in individual, group, and activity therapies. We will also attempt to involve the family if the patient permits us to and if they agree. - Resuming medications as was rx'd at time of discharge on 08/29 including po Invega, lithium, and Sustenna. 09/03 -continue current medications, patient is taking them. -File for 306 conversion hearing to be held 09/06/2019. She will likely need referral to the [facility] due to the need for long-term inpatient treatment. -Reviewed FLP and FG from recent hospitalization 08/07/2019: Cholesterol 221, gl ucose 109, other values within normal limits. -Attempt to involve family is able; son-in-law Poli is petitioner and was involved in hospitalization so we will ask staff to contact him for collateral information and to determine the family's ability to assist with discharge planning and housing. She has very limited supports in the community and if they are unable to assist her with housing and care, she will likely require long-term hospitalization. -Continue private room for psychosis. 09/04 - Continue current medication regimen - patient has been compliant with medications in this structured environment - 306 conversion hearing scheduled for 09/05 - Meeting with director of casework today to discuss treatment options and continue attempts to build rapport - Referral to [facility] is being recommended at this time has patient has repeatedly demonstrated an inability to care for self and provide for basic needs without the support of a structured psychiatric setting. - EKG (WNL). PPD was refused by patient - CXR ordered 09/05 -306 hearing held and patient converted to a 304 involuntary commitment. -Referred to [facility] for long-term inpatient treatment, as patient is severely ill and unable to provide for her own basic needs as a result of her mental illness, and treatment for 27 days on our acute unit was insufficient for successful transition to the community. She was at [facility] for 4 months within the past year, and did respond to treatment there, so returned to the [facility] as recommended for long-term treatment of SPMI. -EKG and chest x-ray completed for [facility] referral. 09/06 - Continue current medication regimen - Referral to [facility] is being prepared, approval was [place] received from the county - Ongoing attempt to build rapport with psychiatric director of casework 09/07 - 09/09 - Continue current medication regimen - Referral sent to [facility] on 09/07/2019 for recommended long- term psychiatric hospitalization based on chronic medication/treatment non- compliance and repeated demonstration of inability to care for self outside of a structured psychiatric setting. - Pt was informed of [facility] referral today during encounter 09/10 - Continue current medication regimen - [place] referral sent on 09/07/2019 - requesting updates regarding when case is anticipated to be reviewed and ensure information was received - Pt continues to demand to leave, unable to appreciated the severity of her condition. Ongoing concern related to patient's repeated demonstration of inability to care for self outside of a structured psychiatric setting. 09/11 - Continue current medication regimen - Awaiting acceptance at [facility]. Ongoing concern related to patient's repeated demonstration of inability to care for self outside of a structured psychiatric setting. 09/12 - 09/14 - Pt due for next injection of Invega Sustenna 234mg IM on 09/16. Oral supplementation was continued from last hospitalization due to concern for ongoing instability with regard to psychotic symptoms. In preparation for first maintenance dose, will reduce oral supplementation to 3mg qAM and discontinue oral paliperidone on 09/16. Continue lithium 450mg BID unchanged. - Awaiting replay for [facility] regarding referral. Ongoing concern related to patient's repeated demonstration of inability to care for self outside of a structured psychiatric setting. Pt has consistently not been agreeable to diversion planning as a result of fixed delusional beliefs that she has family support, that she has a house to live in, and that she has a lot of money - none of these statements confirmed to be true. 09/15 -Continue treatment plan as previously prescribed 09/16 -now fully converted to invega sustenna. 09/17 - Continue current treatment plan 09/18 - 09/20 - Continue current treatment plan - Confirmed that information from patient's hospitalization at our facility was received by [facility], but case has not yet been reviewed. Still awaiting determination of acceptance status. 09/21 - continue current meds and tx plan. Reinstitute medically necessary private room as hx of aggression, labile mood, poor ability to keep contact precautions with COVID, hx homelessness higher risk category 09/22 - 09/23 - continue current meds and tx plan. 09/24 continue current meds and tx plan. MNPR for now as less paranoid and more visible on unit. 09/25 - Continue current treatment plan - patient remains irritable, paranoid, and delusional - Continue MNPR for paranoia and irritability (2) Noncompliance with medication regimen: 09/02 - Unable to clarify if pt has been taking her medications regularly in the days since discharge. She at first indicated that she was not then indicated the medications arein a bag of hers but did not indicate actually taking them. The patient also claims to not recall the names of any of her medications and reports that she does not have the conditions for which her known medications are clearly intended. Possible cognitive impairments. might be impacting medication compliance. language impairments with pt not speaking Stateless impacting compliance concerns. -The patient's underlying psychiatric condition will be actively treated. It is hoped that with treatment we will be able to improve medication compliance and also address aspects that impact compliance and improve this with appropriate interventions. CANTOR form of Invega to be continued at this time, next dose not due for another 2 weeks. Pt took meds this morning that were offered to her but given her extensive non compliance prior to, during and seeming after recent admission and lack of insight to her dx and presentation and indicating that recent hospitalization was quite helpful for her and her indicating wanting to continue her medications as was rx' at end of recent [facility] admission and were instructed to take at that discharge. I am in favor of medication over objection if pt objects to taking her medication during the course of this admission or if it is determined that pt is checking or not actually taking her medications. (3) Homeless: 09/03/19 -In the past, the patient has lived with family members. However, this is clearly not an option at the present time. The context is that the patient reportedly was in alf for approximately a year because of her making terroristic threats against the family. While it does seem clear that the family wants to help protect her, they are unable to safely provide snf. Given the patient's history of neglect of self-care, medication nonadherence, and possible cognitive deficits we are going to investigate structured residential programs as part of our discharge planning. 09/03 -patient has consistently refused assistance with housing, insisting that she has a house in [place], although has not been able to provide an address and her family states this is not true. 09/06 - Patient's grandson called unit yesterday to provide additional information, stating the patient has been homeless for quite some time and there is no valid address for the patient (4) Involuntary commitment: 09/03 -patient on a 304 IOC, readmitted on a 302. We will file for a 306 conversion hearing. 09/04 - 306 hearing scheduled for 09/05; anticipate referral to [facility]. 09/05 -306 conversion granted, now here on a 304 involuntary commitment. 09/07 - Referral packet sent to [facility] on 09/06 (5) Nicotine abuse: 09/02 - Nicotine Patch 7mg topical daily resumed, and smoking cessation to be done when pt is in more apposite mental state to do so Inventory Assets Strengths: concerned family members, pleasant on approach Needs: stable housing, improved compliance to medication and treatment plan. Risk Factors Assessment Male: No : No Do You Have Access To A Gun?: No Health Problems: No Mental Health Diagnoses: Yes Substance Use Disorders: No Previous Attempt: Yes (Per family, patient denies) Previous Psychiatric Hospitalization: Yes Hopelessness: No Smoker: Yes Protective Factors Assessment : No Responsible for Young Children: No Employed: No Stable Relationships: No Supportive Family: No Good Rapport with Provider: No Interval History Identifying Information ANDREW CYR is a 63-year-old F who currently is homeless in [place], has a history of schizoaffective disorder, bipolar type, and was admitted on 09/03/19 05:42 on a 302 involuntary commitment for psychosis, suicidal ideation, inability to provide for basic needs, and medication noncompliance. Chief Complaint "Ok." Review of Systems Notes Pt refusing to participate in full ROS - when asked about specific physical concerns, patient changes topic Sleep Information Total Hours of Sleep: 5 Sleep Comments: falls to sleep with her overhead light full on, staff changes it and she shuts the light we turned off when she awakens. awake at 0300 to the bathroom and back to bed/sleep. awake again at 0420 and for the remainder of the night. she listened to music and softly talked out loud. Meal Information Percent Meal Consumed - Breakfast: 100 Percent Meal Consumed - Lunch: 100 Percent Meal Consumed - Dinner: 100 Nutrition Comment: documented from the pt. meal record Subjective Subjective Patient was seen & assessed and interval progress reviewed with nursing and social work. Staff report the patient had been less isolative since private room was reinstated, but she continues to be episodically irritable. Pt was seen today to assess progress since admission. Cypriot-Stateless conversation held with assistance from [employer] interpretive services; today's session requiring multiple calls due to patient walking off in frustration then re questing to resume our meeting - Roxann #[id number]; Josiah #[id number]. Pt initially states she is "ok", and describes her mood as "better." She denies any new concerns. When asked about any specific physical symptoms, the patient inquires "why should I say if you could care less?" Pt was informed that we care about her well-being, both physically and mentally and was asked what gave her this impression. She stated "I keep saying I want to be discharged. I know you get together and talk. You don't care about me going home." Pt was reminded that our discharge recommendations are to protect her safety, as well as the safety of others. She continued to argue about the intentions of the treatment team, and then stated "you are an accomplice to a kidnapping. You are responsible for holding me captive along with the president of this establishment. They just want to keep me here. Others are being discharged, why am I here for months?" Pt was again reminded of current discharge plan to the [facility]. She continues to reference a plan to talk to the "president" and threatens to "have this place closed." Pt states "I do not consider myself chronically ill or a danger to others." Pt continued to state that she would have the president or the police involved as "someone needs to put an end to this." Pt then stated she would "do some divine things to you", and according to the polystyrene bead molder called this provider "a cuss word" and then apologized. Session was then ended, as patient denied further questions. Physical Exam Psychiatric Orientation: alert and + guarded (uncooperative, angry, argumentative) Apperance: appropriately dressed (casually, in t-shirt and leggings) and + disheveled Eye Contact: + fair eye contact Motor Behavior: no abnormal motor movements Speech: + loud speech (angry tone) Affect: + angry affect; + mood not congruent with affect (consistently states she is not "frustrated", though presents as irritable ) Mood: no depressed mood ("Fine") and no irritable mood Thought Content: + paranoid, + delusions and + persecution Suicidal Thoughts: denies suicidal thoughts Homicidal Thoughts: denies homicidal thoughts Insight: + severely impaired insight Judgement: + severely impaired judgement Vital Signs (Past 24 Hours) Last Vital Signs Temp 36.7 C 09/26/19 06:42 Pulse 70 09/26/19 06:43 Resp 18 09/26/19 06:42 BP 129/73 09/26/19 06:43 Pulse Ox 95 09/03/19 05:47 Results & Data ([facility]) Current Inpatient Medications Current Inpatient Medications: Current Inpatient Medications Acetaminophen (Tylenol) 650 mg PO Q4H PRN PRN Reason: Headache or Minor Fever Stop: 10/03/19 05:41 Last Admin: 09/24/19 10:34 Dose: 650 mg Documented by: Al Hydrox/Mg Hydrox/Simethicone (Maalox) 30 ml PO Q4H PRN PRN Reason: GI Upset Stop: 10/03/19 05:41 Bismuth Subsalicylate (Kaopectate) 15 ml PO PRN PRN PRN Reason: Loose Stool Stop: 10/03/19 05:41 Clotrimazole (Lotrimin 1%) 1 appln EXT BID [facility] Stop: 10/24/19 20:59 Last Admin: 09/26/19 07:44 Dose: 1 appln Documented by: Docusate Sodium (Colace) 100 mg PO BID [facility] Stop: 10/05/19 08:59 Last Admin: 09/26/19 07:43 Dose: 100 mg Documented by: Hydroxyzine HCl (Vistaril) 50 mg PO HSZ PRN PRN Reason: Insomnia Stop: 10/03/19 05:41 Hydroxyzine HCl (Vistaril) 25 mg PO Q4H PRN PRN Reason: Anxiety Stop: 10/03/19 05:41 Levothyroxine Sodium (Synthroid) 75 mcg PO DAILYBB [facility] Stop: 10/03/19 07:59 Last Admin: 09/26/19 07:43 Dose: 75 mcg Documented by: Council Carbonate (Eskalith) 450 mg PO BID [facility] Stop: 10/03/19 20:59 Last Admin: 09/26/19 07:43 Dose: 450 mg Documented by: Magnesium Hydroxide (Milk Of Magnesia) 30 ml PO DAILY PRN PRN Reason: Constipation Stop: 10/03/19 05:41 Miscellaneous (Remove Nicoderm Patch) 1 ea N/A DAILY@[id number] [facility] Stop: 10/04/19 08:58 Last Admin: 09/26/19 07:44 Dose: 1 ea Documented by: Nicotine (Nicoderm Cq) 7 mg TD QAM [facility] Stop: 10/03/19 16:29 Last Admin: 09/26/19 07:44 Dose: 7 mg Documented by: Simvastatin (Zocor) 10 mg PO HS [facility] Stop: 10/03/19 21:59 Last Admin: 09/25/19 20:51 Dose: 10 mg Documented by: Sodium Chloride ([place] Nasal) 1 - 2 sprays NA PRN PRN PRN Reason: Nasal Dryness/Congestion Stop: 10/03/19 05:41 Mental Health & Subst Abuse Tx Psychiatrist Name of Psychiatrist: Jackelin Psychiatrist's Date of Appointment with Psychiatrist: 09/14/19 Time of Appointment with Psychiatrist: 11:00 a.m. Psychiatric Appointment Comment: [id number] [place] [address] Therapist Name of Therapist: None Pattern Layout Worker Name of Pattern Layout Worker: [employer] - Lizzy Pandey Phone Number for Pattern Layout Worker: [phone] Post Discharge Appointments Primary Care Physician Name Of Family Doctor: [facility] Primary Care Provider Appointment Comment: [phone], [address], [place] [address]
[2019-09-26] MEDS: SIMVASTATIN 10 MG TAB PO SCH (21:03)
[2019-09-27] MEDS: LITHIUM CARBONATE 450 MG TABCR PO SCH ×2 (09:16→20:46)
[2019-09-27] MEDS: DOCUSATE SODIUM 100 MG CAP PO SCH ×2 (09:16→20:46)
[2019-09-27] MEDS: LEVOTHYROXINE SODIUM 75 MCG TABLET PO SCH (09:16)
[2019-09-27] MEDS: CLOTRIMAZOLE 1% CR 15 GM TUBE EXT SCH ×2 (09:40→20:46)
[2019-09-27] MEDS: NICOTINE 7 MG/24 HR TDSY TD SCH (09:41)
--- NOTE | 2019-09-27 11:53 | Psychiatric Progress Note ---
Date of Service September 27, 2019 Impression / Recommendations Impression 63-year-old [place] female with schizoaffective disorder bipolar type admitted on a 302 commitment 4 days after being discharged from this unit on 08/29 after a 27-day hospitalization. She was discharged on a 304 IOC, and return to the ER later that same day, after police were called due to bizarre behavior at a local grocery store, but was again discharged. Readmitted with psychotic symptoms including paranoia, delusions of persecution (that family and people at the [facility] were trying to poison/harm her), refusing to eat with hypokalemia, homelessness, delusions that she owns a home, and inability to provide for her own basic needs. Additionally, family members who petitioned reported she made suicidal statements and walked into traffic, and reported delusions that her son had stabbed her in her intestines were hanging out. They also reported she had been noncompliant with oral psychotropic medications, and although her family preservation caseworker assisted her to fill these on the day of discharge, she did not bring them into the hospital with her and says she does not know where they are. She is repeatedly demonstrated complete inability to provide for her own basic needs outside of the hospital, including health, welfare, [facility], food, and safety. Inpatient treatment is medically necessary due to the severity of her symptoms and risk for suicide if discharged. She is now on a 304 involuntary commitment, and we are recommending long-term inpatient treatment at the [facility]. Referral packet was sent for review on 09/07/2019, we still have not received confirmation that the packet was received despite several attempts at communication. (1) Schizoaffective disorder, bipolar type: 09/03/19 -The patient has been admitted to the locked, secured behavioral health unit and has been placed in special observation room. She is also being monitored with close observations and every 15-minute direct observation. When more stable she will be actively encouraged to participate in individual, group, and activity therapies. We will also attempt to involve the family if the patient permits us to and if they agree. - Resuming medications as was rx'd at time of discharge on 08/29 including po Invega, lithium, and Sustenna. 09/03 -continue current medications, patient is taking them. -File for 306 conversion hearing to be held 09/06/2019. She will likely need referral to the [facility] hospital due to the need for long-term inpatient treatment. -Reviewed FLP and FG from recent hospitalization 08/07/2019: Cholesterol 221, gl ucose 109, other values within normal limits. -Attempt to involve family is able; son-in-law Poli is petitioner and was involved in hospitalization so we will ask staff to contact him for collateral information and to determine the family's ability to assist with discharge planning and housing. She has very limited supports in the community and if they are unable to assist her with housing and care, she will likely require long-term hospitalization. -Continue private room for psychosis. 09/04 - Continue current medication regimen - patient has been compliant with medications in this structured environment - 306 conversion hearing scheduled for 09/05 - Meeting with family preservation caseworker today to discuss treatment options and continue attempts to build rapport - Referral to [facility] is being recommended at this time has patient has repeatedly demonstrated an inability to care for self and provide for basic needs without the support of a structured psychiatric setting. - EKG (WNL). PPD was refused by patient - CXR ordered 09/05 -306 hearing held and patient converted to a 304 involuntary commitment. -Referred to [facility] for long-term inpatient treatment, as patient is severely ill and unable to provide for her own basic needs as a result of her mental illness, and treatment for 27 days on our acute unit was insufficient for successful transition to the community. She was at [facility] for 4 months within the past year, and did respond to treatment there, so returned to the [facility] as recommended for long-term treatment of SPMI. -EKG and chest x-ray completed for [facility] hospital referral. 09/06 - Continue current medication regimen - Referral to [facility] is being prepared, approval was reportedly received from the county - Ongoing attempt to build rapport with psychiatric family preservation caseworker 09/07 - 09/09 - Continue current medication regimen - Referral sent to [facility] on 09/07/2019 for recommended long- term psychiatric hospitalization based on chronic medication/treatment non- compliance and repeated demonstration of inability to care for self outside of a structured psychiatric setting. - Pt was informed of [facility] referral today during encounter 09/10 - Continue current medication regimen - [place] referral sent on 09/07/2019 - requesting updates regarding when case is anticipated to be reviewed and ensure information was received - Pt continues to demand to leave, unable to appreciated the severity of her condition. Ongoing concern related to patient's repeated demonstration of inability to care for self outside of a structured psychiatric setting. 09/11 - Continue current medication regimen - Awaiting acceptance at [facility]. Ongoing concern related to patient's repeated demonstration of inability to care for self outside of a structured psychiatric setting. 09/12 - 09/14 - Pt due for next injection of Invega Sustenna 234mg IM on 09/16. Oral supplementation was continued from last hospitalization due to concern for ongoing instability with regard to psychotic symptoms. In preparation for first maintenance dose, will reduce oral supplementation to 3mg qAM and discontinue oral paliperidone on 09/16. Continue lithium 450mg BID unchanged. - Awaiting replay for [facility] regarding referral. Ongoing concern related to patient's repeated demonstration of inability to care for self outside of a structured psychiatric setting. Pt has consistently not been agreeable to diversion planning as a result of fixed delusional beliefs that she has family support, that she has a house to live in, and that she has a lot of money - none of these statements confirmed to be true. 09/15 -Continue treatment plan as previously prescribed 09/16 -now fully converted to invega sustenna. 09/17 - Continue current treatment plan 09/18 - 09/20 - Continue current treatment plan - Confirmed that information from patient's hospitalization at our facility was received by [facility], but case has not yet been reviewed. Still awaiting determination of acceptance status. 09/21 - continue current meds and tx plan. Reinstitute medically necessary private room as hx of aggression, labile mood, poor ability to keep contact precautions with COVID, hx homelessness higher risk category 09/22 - 09/23 - continue current meds and tx plan. 09/24 continue current meds and tx plan. MNPR for now as less paranoid and more visible on unit. 09/25 - Continue current treatment plan - patient remains irritable, paranoid, and delusional - Continue MNPR for paranoia and irritability 09/26 - Continue current treatment plan - Still awaiting response from [facility], 3 weeks after initially referral packet was sent - Pt did reportedly complete her Medical Assistance application. Consider repeat meeting with the county to discuss options for diversion planning; though these remain very limited - As review of patient's treatment plan has historically been very upsetting to the patient, discharge plans have not changed, and the therapeutic value of the review is limited - discussed with patient who did agree to review her treatment plan once a week unless there are changes in the interim. This was confirmed by multiple parties and can be reviewed with greater frequency at which time patient better tolerates the conversation and the therapeutic value is increased. (2) Noncompliance with medication regimen: 09/02 - Unable to clarify if pt has been taking her medications regularly in the days since discharge. She at first indicated that she was not then indicated the medications arein a bag of hers but did not indicate actually taking them. The patient also claims to not recall the names of any of her medications and reports that she does not have the conditions for which her known medications are clearly intended. Possible cognitive impairments. might be impacting medication compliance. language impairments with pt not speaking Hungarian impacting compliance concerns. -The patient's underlying psychiatric condition will be actively treated. It is hoped that with treatment we will be able to improve medication compliance and also address aspects that impact compliance and improve this with appropriate interventions. CANTOR form of Invega to be continued at this time, next dose not due for another 2 weeks. Pt took meds this morning that were offered to her but given her extensive non compliance prior to, during and seeming after recent admission and lack of insight to her dx and presentation and indicating that recent hospitalization was quite helpful for her and her indicating wanting to continue her medications as was rx' at end of recent [facility] admission and were instructed to take at that discharge. I am in favor of medication over objection if pt objects to taking her medication during the course of this admission or if it is determined that pt is checking or not actually taking her medications. (3) Homeless: 09/03/19 -In the past, the patient has lived with family members. However, this is clearly not an option at the present time. The context is that the patient reportedly was in senior living for approximately a year because of her making terroristic threats against the family. While it does seem clear that the family wants to help protect her, they are unable to safely provide [facility]. Given the patient's history of neglect of self-care, medication nonadherence, and possible cognitive deficits we are going to investigate structured residential programs as part of our discharge planning. 09/03 -patient has consistently refused assistance with housing, insisting that she has a house in [place], although has not been able to provide an address and her family states this is not true. 09/06 - Patient's grandson called unit yesterday to provide additional information, stating the patient has been homeless for quite some time and there is no valid address for the patient (4) Involuntary commitment: 09/03 -patient on a 304 IOC, readmitted on a 302. We will file for a 306 conversion hearing. 09/04 - 306 hearing scheduled for 09/05; anticipate referral to [facility]. 09/05 -306 conversion granted, now here on a 304 involuntary commitment. 09/07 - Referral packet sent to [facility] on 09/06 (5) Nicotine abuse: 09/02 - Nicotine Patch 7mg topical daily resumed, and smoking cessation to be done when pt is in more apposite mental state to do so Inventory Assets Strengths: concerned family members, pleasant on approach Needs: stable housing, improved compliance to medication and treatment plan. Risk Factors Assessment Male: No : No Do You Have Access To A Gun?: No Health Problems: No Mental Health Diagnoses: Yes Substance Use Disorders: No Previous Attempt: Yes (Per family, patient denies) Previous Psychiatric Hospitalization: Yes Hopelessness: No Smoker: Yes Protective Factors Assessment : No Responsible for Young Children: No Employed: No Stable Relationships: No Supportive Family: No Good Rapport with Provider: No Interval History Identifying Information ANDREW CYR is a 63-year-old F who currently is homeless in [facility], has a history of schizoaffective disorder, bipolar type, and was admitted on 09/03/19 05:42 on a 302 involuntary commitment for psychosis, suicidal ideation, inability to provide for basic needs, and medication noncompliance. Chief Complaint "Good. Thank you. No concerns." Review of Systems Notes Constitutional: denied Cardiovascular: denied Respiratory: denied Gastrointestinal: denied Neurological: denied Psychiatric: denies symptoms other than stated above Total of at least 10 systems reviewed, pertinent positives as above and in HPI. Sleep Information Total Hours of Sleep: 6 Sleep Comments: she remains to fall asleep with her overbed light on which is tuned off by staff. a smaller light is turned on over the other bed. Meal Information Percent Meal Consumed - Breakfast: 100 Percent Meal Consumed - Lunch: 100 Percent Meal Consumed - Dinner: 100 Nutrition Comment: documented from the pt. meal record Subjective Subjective Patient was seen & assessed and interval progress reviewed with treatment team. Staff report patient has continued appropriate behavioral control. Pt reportedly did complete her medical assistance application yesterday. No word provided from [facility] regarding acceptance. Pt was seen today to assess progress since admission. [place]-Hungarian conversation was conducted with assistance from Dawna diplomatic interpreter/translator- Efrain #[id number]. Pt states she is "good. Thank you" this morning. Pt denies any new concerns at this time. She also denies any physical complaints at this time. Reviewed with patient that she is comfortable reviewing her treatment plan only once a week. Pt did state "they always come around with that thing (stack of papers), and it's got me tired already. That is good. Thanks." This provider confirmed with the patient that she requested to have her nails trimmed. Pt declines for her fingernails to be trimmed but does verbalize she is agreeable with this provider trimming her toenails. Pt's toenails were clipped at her request. Pt tolerated toenail clipping without incident. She denied other needs or concerns at this time. Physical Exam Psychiatric Orientation: alert Apperance: appropriately dressed (casually, in t-shirt and leggings), + disheveled (appearing somewhat unkempt) and appeared stated age Eye Contact: good eye contact Motor Behavior: steady gait and station and no abnormal motor movements Speech: normal rate/rhythm/volume of speech Affect: euthymic affect Mood: no depressed mood ("good. Thank you") Thought Process: goal directed thought process and + concrete thought process Thought Content: no delusions (rather superficial conversation, no reference to delusional beliefs) Suicidal Thoughts: denies suicidal thoughts Homicidal Thoughts: denies homicidal thoughts Hallucinations: no auditory hallucinations and no visual hallucinations Cognition: attention grossly intact and language grossly intact Insight: + impaired insight Judgement: + impaired judgement Vital Signs (Past 24 Hours) Last Vital Signs Temp 36.7 C 09/27/19 06:35 Pulse 72 09/27/19 06:35 Resp 18 09/27/19 06:35 BP 139/81 09/27/19 06:35 Pulse Ox 95 09/03/19 05:47 Results & Data ([facility]) Current Inpatient Medications Current Inpatient Medications: Current Inpatient Medications Acetaminophen (Tylenol) 650 mg PO Q4H PRN PRN Reason: Headache or Minor Fever Stop: 10/03/19 05:41 Last Admin: 09/24/19 10:34 Dose: 650 mg Documented by: Al Hydrox/Mg Hydrox/Simethicone (Maalox) 30 ml PO Q4H PRN PRN Reason: GI Upset Stop: 10/03/19 05:41 Bismuth Subsalicylate (Kaopectate) 15 ml PO PRN PRN PRN Reason: Loose Stool Stop: 10/03/19 05:41 Clotrimazole (Lotrimin 1%) 1 appln EXT BID [facility] Stop: 10/24/19 20:59 Last Admin: 09/27/19 09:40 Dose: 1 appln Documented by: Docusate Sodium (Colace) 100 mg PO BID [facility] Stop: 10/05/19 08:59 Last Admin: 09/27/19 09:16 Dose: 100 mg Documented by: Hydroxyzine HCl (Vistaril) 50 mg PO HSZ PRN PRN Reason: Insomnia Stop: 10/03/19 05:41 Hydroxyzine HCl (Vistaril) 25 mg PO Q4H PRN PRN Reason: Anxiety Stop: 10/03/19 05:41 Levothyroxine Sodium (Synthroid) 75 mcg PO DAILYBB [facility] Stop: 10/03/19 07:59 Last Admin: 09/27/19 09:16 Dose: 75 mcg Documented by: [place] Carbonate (Eskalith) 450 mg PO BID [facility] Stop: 10/03/19 20:59 Last Admin: 09/27/19 09:16 Dose: 450 mg Documented by: Magnesium Hydroxide (Milk Of Magnesia) 30 ml PO DAILY PRN PRN Reason: Constipation Stop: 10/03/19 05:41 Miscellaneous (Remove Nicoderm Patch) 1 ea N/A DAILY@[id number] [facility] Stop: 10/04/19 08:58 Last Admin: 09/27/19 09:40 Dose: Not Given Documented by: Nicotine (Nicoderm Cq) 7 mg TD QAM [facility] Stop: 10/03/19 16:29 Last Admin: 09/27/19 09:41 Dose: 7 mg Documented by: Simvastatin (Zocor) 10 mg PO HS [facility] Stop: 10/03/19 21:59 Last Admin: 09/26/19 21:03 Dose: 10 mg Documented by: Sodium Chloride ([place] Nasal) 1 - 2 sprays NA PRN PRN PRN Reason: Nasal Dryness/Congestion Stop: 10/03/19 05:41 Mental Health & Subst Abuse Tx Psychiatrist Name of Psychiatrist: Jackelin Psychiatrist's Date of Appointment with Psychiatrist: 09/14/19 Time of Appointment with Psychiatrist: 11:00 a.m. Psychiatric Appointment Comment: [id number] [place] [address] Therapist Name of Therapist: None Claim Approver Name of Claim Approver: [employer] - Lizzy Pandey Phone Number for Claim Approver: [phone] Post Discharge Appointments Primary Care Physician Name Of Family Doctor: [facility] Primary Care Provider Appointment Comment: [id number], [address], [place] [address]
[2019-09-27] MEDS: SIMVASTATIN 10 MG TAB PO SCH (20:47)
[2019-09-28] MEDS: DOCUSATE SODIUM 100 MG CAP PO SCH ×2 (08:54→21:25)
[2019-09-28] MEDS: LEVOTHYROXINE SODIUM 75 MCG TABLET PO SCH (08:54)
[2019-09-28] MEDS: LITHIUM CARBONATE 450 MG TABCR PO SCH ×2 (08:54→20:49)
[2019-09-28] MEDS: CLOTRIMAZOLE 1% CR 15 GM TUBE EXT SCH ×2 (08:54→20:49)
[2019-09-28] MEDS: NICOTINE 7 MG/24 HR TDSY TD SCH (08:55)
--- NOTE | 2019-09-28 09:49 | Psychiatric Progress Note ---
Date of Service September 28, 2019 Impression / Recommendations Impression 63-year-old [place]ian female with schizoaffective disorder bipolar type admitted on a 302 commitment 4 days after being discharged from this unit on 08/29 after a 27-day hospitalization. She was discharged on a 304 IOC, and return to the ER later that same day, after police were called due to bizarre behavior at a local grocery store, but was again discharged. Readmitted with psychotic symptoms including paranoia, delusions of persecution (that family and people at the chcf were trying to poison/harm her), refusing to eat with hypokalemia, homelessness, delusions that she owns a home, and inability to provide for her own basic needs. Additionally, family members who petitioned reported she made suicidal statements and walked into traffic, and reported delusions that her son had stabbed her in her intestines were hanging out. They also reported she had been noncompliant with oral psychotropic medications, and although her case manager specialist assisted her to fill these on the day of discharge, she did not bring them into the hospital with her and says she does not know where they are. She is repeatedly demonstrated complete inability to provide for her own basic needs outside of the hospital, including health, welfare, chcf, food, and safety. Inpatient treatment is medically necessary due to the severity of her symptoms and risk for suicide if discharged. She is now on a 304 involuntary commitment, and we are recommending long-term inpatient treatment at the [facility]. Referral packet was sent for review on 09/07/2019, we still have not received any information regarding acceptance despite several attempts at communication with the facility. (1) Schizoaffective disorder, bipolar type: 09/03/19 -The patient has been admitted to the locked, secured behavioral health unit and has been placed in special observation room. She is also being monitored with close observations and every 15-minute direct observation. When more stable she will be actively encouraged to participate in individual, group, and activity therapies. We will also attempt to involve the family if the patient permits us to and if they agree. - Resuming medications as was rx'd at time of discharge on 08/29 including po Invega, lithium, and Sustenna. 09/03 -continue current medications, patient is taking them. -File for 306 conversion hearing to be held 09/06/2019. She will likely need referral to the [facility] hospital due to the need for long-term inpatient treatment. -Reviewed FLP and FG from recent hospitalization 08/07/2019: Cholesterol 221, glucose 109, other values within normal limits. -Attempt to involve family is able; son-in-law Poli is petitioner and was involved in hospitalization so we will ask staff to contact him for collateral information and to determine the family's ability to assist with discharge planning and housing. She has very limited supports in the community and if they are unable to assist her with housing and care, she will likely require long-term hospitalization. -Continue private room for psychosis. 09/04 - Continue current medication regimen - patient has been compliant with medications in this structured environment - 306 conversion hearing scheduled for 09/05 - Meeting with case manager specialist today to discuss treatment options and continue attempts to build rapport - Referral to [facility] is being recommended at this time has patient has repeatedly demonstrated an inability to care for self and provide for basic needs without the support of a structured psychiatric setting. - EKG (WNL). PPD was refused by patient - CXR ordered 09/05 -306 hearing held and patient converted to a 304 involuntary commitment. -Referred to [facility] for long-term inpatient treatment, as patient is severely ill and unable to provide for her own basic needs as a result of her mental illness, and treatment for 27 days on our acute unit was insufficient for successful transition to the community. She was at [facility] for 4 months within the past year, and did respond to treatment there, so returned to the [facility] as recommended for long-term treatment of SPMI. -EKG and chest x-ray completed for [facility] referral. 09/06 - Continue current medication regimen - Referral to [facility] is being prepared, approval was reportedly received from the county - Ongoing attempt to build rapport with psychiatric case manager specialist 09/07 - 09/09 - Continue current medication regimen - Referral sent to [facility] on 09/07/2019 for recommended long- term psychiatric hospitalization based on chronic medication/treatment non- compliance and repeated demonstration of inability to care for self outside of a structured psychiatric setting. - Pt was informed of [facility] referral today during encounter 09/10 - Continue current medication regimen - [place] referral sent on 09/07/2019 - requesting updates regarding when case is anticipated to be reviewed and ensure information was received - Pt continues to demand to leave, unable to appreciated the severity of her condition. Ongoing concern related to patient's repeated demonstration of inability to care for self outside of a structured psychiatric setting. 09/11 - Continue current medication regimen - Awaiting acceptance at [facility]. Ongoing concern related to patient's repeated demonstration of inability to care for self outside of a structured psychiatric setting. 09/12 - 09/14 - Pt due for next injection of Invega Sustenna 234mg IM on 09/16. Oral supplementation was continued from last hospitalization due to concern for ongoing instability with regard to psychotic symptoms. In preparation for first maintenance dose, will reduce oral supplementation to 3mg qAM and discontinue oral paliperidone on 09/16. Continue lithium 450mg BID unchanged. - Awaiting replay for [facility] regarding referral. Ongoing concern related to patient's repeated demonstration of inability to care for self outside of a structured psychiatric setting. Pt has consistently not been agreeable to diversion planning as a result of fixed delusional beliefs that she has family support, that she has a house to live in, and that she has a lot of money - none of these statements confirmed to be true. 09/15 -Continue treatment plan as previously prescribed 09/16 -now fully converted to invega sustenna. 09/17 - Continue current treatment plan 09/18 - 09/20 - Continue current treatment plan - Confirmed that information from patient's hospitalization at our facility was received by [facility], but case has not yet been reviewed. Still awaiting determination of acceptance status. 09/21 - continue current meds and tx plan. Reinstitute medically necessary private room as hx of aggression, labile mood, poor ability to keep contact precautions with COVID, hx homelessness higher risk category 09/22 - 09/23 - continue current meds and tx plan. 09/24 continue current meds and tx plan. MNPR for now as less paranoid and more visible on unit. 09/25 - Continue current treatment plan - patient remains irritable, paranoid, and delusional - Continue MNPR for paranoia and irritability 09/26 - Continue current treatment plan - Still awaiting response from [facility], 3 weeks after initially referral packet was sent - Pt did reportedly complete her Medical Assistance application. Consider repeat meeting with the county to discuss options for diversion planning; though these remain very limited - As review of patient's treatment plan has historically been very upsetting to the patient, discharge plans have not changed, and the therapeutic value of the review is limited - discussed with patient who did agree to review her treatment plan once a week unless there are changes in the interim. This was confirmed by multiple parties and can be reviewed with greater frequency at which time patient better tolerates the conversation and the therapeutic value is increased. 09/27 - Continue current treatment plan - Still awaiting response from [facility] - Pt is unwilling to consider alternative housing options - she maintains the delusion that she has a penthouse in [place] which has been confirmed to be untrue. (2) Noncompliance with medication regimen: 09/02 - Unable to clarify if pt has been taking her medications regularly in the days since discharge. She at first indicated that she was not then indicated the medications arein a bag of hers but did not indicate actually taking them. The patient also claims to not recall the names of any of her medications and reports that she does not have the conditions for which her known medications are clearly intended. Possible cognitive impairments. might be impacting medication compliance. language impairments with pt not speaking Cameroonian impacting compliance concerns. -The patient's underlying psychiatric condition will be actively treated. It is hoped that with treatment we will be able to improve medication compliance and also address aspects that impact compliance and improve this with appropriate interventions. CANTOR form of Invega to be continued at this time, next dose not due for another 2 weeks. Pt took meds this morning that were offered to her but given her extensive non compliance prior to, during and seeming after recent admission and lack of insight to her dx and presentation and indicating that recent hospitalization was quite helpful for her and her indicating wanting to continue her medications as was rx' at end of recent [facility] admission and were instructed to take at that discharge. I am in favor of medication over objection if pt objects to taking her medication during the course of this admission or if it is determined that pt is checking or not actually taking her medications. (3) Homeless: 09/03/19 -In the past, the patient has lived with family members. However, this is clearly not an option at the present time. The context is that the patient reportedly was in residential for approximately a year because of her making terroristic threats against the family. While it does seem clear that the family wants to help protect her, they are unable to safely provide chcf. Given the patient's history of neglect of self-care, medication nonadherence, and possible cognitive deficits we are going to investigate structured residential programs as part of our discharge planning. 09/03 -patient has consistently refused assistance with housing, insisting that she has a house in [place], although has not been able to provide an address and her family states this is not true. 09/06 - Patient's grandson called unit yesterday to provide additional information, stating the patient has been homeless for quite some time and there is no valid address for the patient (4) Involuntary commitment: 09/03 -patient on a 304 IOC, readmitted on a 302. We will file for a 306 conversion hearing. 09/04 - 306 hearing scheduled for 09/05; anticipate referral to [facility]. 09/05 -306 conversion granted, now here on a 304 involuntary commitment. 09/07 - Referral packet sent to [facility] on 09/06 (5) Nicotine abuse: 09/02 - Nicotine Patch 7mg topical daily resumed, and smoking cessation to be done when pt is in more apposite mental state to do so Inventory Assets Strengths: concerned family members, pleasant on approach Needs: stable housing, improved compliance to medication and treatment plan. Risk Factors Assessment Male: No : No Do You Have Access To A Gun?: No Health Problems: No Mental Health Diagnoses: Yes Substance Use Disorders: No Previous Attempt: Yes (Per family, patient denies) Previous Psychiatric Hospitalization: Yes Hopelessness: No Smoker: Yes Protective Factors Assessment : No Responsible for Young Children: No Employed: No Stable Relationships: No Supportive Family: No Good Rapport with Provider: No Interval History Identifying Information ANDREW CYR is a 63-year-old F who currently is homeless in [facility], has a history of schizoaffective disorder, bipolar type, and was admitted on 09/03/19 05:42 on a 302 involuntary commitment for psychosis, suicidal ideation, inability to provide for basic needs, and medication noncompliance. Chief Complaint "Good. Thank You." Review of Systems Notes Constitutional: denied Cardiovascular: denied Respiratory: denied Gastrointestinal: denied; denies any abdominal pain at this time Neurological: denied Psychiatric: denies symptoms other than stated above Total of at least 10 systems reviewed, pertinent positives as above and in HPI. Sleep Information Total Hours of Sleep: 6.5 Sleep Comments: she remains to fall asleep with her overbed light on which is tuned off by staff. a smaller light is turned on over the other bed. Meal Information Percent Meal Consumed - Breakfast: 100 Percent Meal Consumed - Lunch: 100 Percent Meal Consumed - Dinner: 100 Nutrition Comment: documented from the pt. meal record Subjective Subjective Patient was seen & assessed and interval progress reviewed with nursing and social work. Staff report the patient continues to maintain behavioral control in this structured setting. Pt was seen today to assess progress since admission. Azerbaijani-Cameroonian conversation was conducted with assistance from [employer] interpretive services [facility] #[id number]. Pt states she is "good. Thank you." She does inform this provider that "my stomach hurt a lot last night." Pt indicates most of the pain was in her lower abdomen, describing the pain as "sharp, intense." Pt states the pain lasted 15-30 minutes, but resolved when she laid on her stomach. Pt denies having passed gas or having a bowel movement. Pt denies pain at this time or any additional complications. Pt states she did not inform staff of this pain last evening and did not request medication for the discomfort. When asked to rate the severity of the pain on a 0-10 scale, patient simply stated "I don't know." Pt was asked again if she would consider a homeless chcf if a diversion plan could be pursued - patient is maintaining the delusion that she has a "penthouse" in [place], and that "they have found the keys now." Pt states if she cannot return to her penthouse, she has a room at her mother's house she can live in. Even when challenged on these statements, patient maintains that they are truthful. Pt was reminded that her family has informed us that the patient is, in fact, homeless and has no residence in the community. Pt again argues with this. She does deny other needs or concerns at this time. Physical Exam Psychiatric Orientation: alert and + guarded (only superficially cooperative ) Apperance: appropriately dressed (casually, wearing t-shirt and leggings), + disheveled (appearing somewhat unkempt) and appeared stated age Eye Contact: + fair eye contact Motor Behavior: steady gait and station and no abnormal motor movements Speech: normal rate/rhythm/volume of speech Affect: + blunted affect (becomes irritable when talking about her belief that she has housing) Mood: no depressed mood ("good") Thought Process: + concrete thought process Thought Content: + delusions (maintains fixed delusion that she has housing in [place]) Suicidal Thoughts: denies suicidal thoughts Homicidal Thoughts: denies homicidal thoughts Cognition: attention grossly intact and language grossly intact Estimated Intelligence: consistent with education level Insight: + severely impaired insight Judgement: + severely impaired judgement Vital Signs (Past 24 Hours) Last Vital Signs Temp 36.7 C 09/28/19 06:45 Pulse 65 09/28/19 06:46 Resp 18 09/28/19 06:45 BP 129/79 09/28/19 06:46 Pulse Ox 95 09/03/19 05:47 Results & Data ([facility]) Current Inpatient Medications Current Inpatient Medications: Current Inpatient Medications Acetaminophen (Tylenol) 650 mg PO Q4H PRN PRN Reason: Headache or Minor Fever Stop: 10/03/19 05:41 Last Admin: 09/24/19 10:34 Dose: 650 mg Documented by: Al Hydrox/Mg Hydrox/Simethicone (Maalox) 30 ml PO Q4H PRN PRN Reason: GI Upset Stop: 10/03/19 05:41 Bismuth Subsalicylate (Kaopectate) 15 ml PO PRN PRN PRN Reason: Loose Stool Stop: 10/03/19 05:41 Clotrimazole (Lotrimin 1%) 1 appln EXT BID [facility] Stop: 10/24/19 20:59 Last Admin: 09/28/19 08:54 Dose: 1 appln Documented by: Docusate Sodium (Colace) 100 mg PO BID [facility] Stop: 10/05/19 08:59 Last Admin: 09/28/19 08:54 Dose: 100 mg Documented by: Hydroxyzine HCl (Vistaril) 50 mg PO HSZ PRN PRN Reason: Insomnia Stop: 10/03/19 05:41 Hydroxyzine HCl (Vistaril) 25 mg PO Q4H PRN PRN Reason: Anxiety Stop: 10/03/19 05:41 Levothyroxine Sodium (Synthroid) 75 mcg PO DAILYBB [facility] Stop: 10/03/19 07:59 Last Admin: 09/28/19 08:54 Dose: 75 mcg Documented by: [place] Carbonate (Eskalith) 450 mg PO BID [facility] Stop: 10/03/19 20:59 Last Admin: 09/28/19 08:54 Dose: 450 mg Documented by: Magnesium Hydroxide (Milk Of Magnesia) 30 ml PO DAILY PRN PRN Reason: Constipation Stop: 10/03/19 05:41 Miscellaneous (Remove Nicoderm Patch) 1 ea N/A DAILY@[id number] [facility] Stop: 10/04/19 08:58 Last Admin: 09/28/19 09:07 Dose: 1 ea Documented by: Nicotine (Nicoderm Cq) 7 mg TD QAM [facility] Stop: 10/03/19 16:29 Last Admin: 09/28/19 08:55 Dose: 7 mg Documented by: Simvastatin (Zocor) 10 mg PO HS [facility] Stop: 10/03/19 21:59 Last Admin: 09/27/19 20:47 Dose: 10 mg Documented by: Sodium Chloride ([place] Nasal) 1 - 2 sprays NA PRN PRN PRN Reason: Nasal Dryness/Congestion Stop: 10/03/19 05:41 Mental Health & Subst Abuse Tx Psychiatrist Name of Psychiatrist: Jackelin Psychiatrist's Date of Appointment with Psychiatrist: 09/14/19 Time of Appointment with Psychiatrist: 11:00 a.m. Psychiatric Appointment Comment: [id number] [place] [address] Therapist Name of Therapist: None Engine Boss Name of Engine Boss: [employer] Lizzy Pandey Phone Number for Engine Boss: [phone] Post Discharge Appointments Primary Care Physician Name Of Family Doctor: [facility] Primary Care Provider Appointment Comment: [id number], [address], [place] [address]
[2019-09-28] MEDS: SIMVASTATIN 10 MG TAB PO SCH (20:49)
[2019-09-29] MEDS: LITHIUM CARBONATE 450 MG TABCR PO SCH ×2 (08:56→21:00)
[2019-09-29] MEDS: DOCUSATE SODIUM 100 MG CAP PO SCH ×2 (08:56→21:00)
[2019-09-29] MEDS: LEVOTHYROXINE SODIUM 75 MCG TABLET PO SCH (08:56)
[2019-09-29] MEDS: NICOTINE 7 MG/24 HR TDSY TD SCH (08:57)
[2019-09-29] MEDS: CLOTRIMAZOLE 1% CR 15 GM TUBE EXT SCH ×2 (08:59→21:01)
--- NOTE | 2019-09-29 09:05 | Psychiatric Progress Note ---
Date of Service September 29, 2019 Impression / Recommendations Impression 63-year-old [place] female with schizoaffective disorder bipolar type admitted on a 302 commitment 4 days after being discharged from this unit on 08/29 after a 27-day hospitalization. She was discharged on a 304 IOC, and return to the ER later that same day, after police were called due to bizarre behavior at a local grocery store, but was again discharged. Readmitted with psychotic symptoms including paranoia, delusions of persecution (that family and people at the nursing home were trying to poison/harm her), refusing to eat with hypokalemia, homelessness, delusions that she owns a home, and inability to provide for her own basic needs. Additionally, family members who petitioned reported she made suicidal statements and walked into traffic, and reported delusions that her son had stabbed her in her intestines were hanging out. They also reported she had been noncompliant with oral psychotropic medications, and although her piano case and bench assembler assisted her to fill these on the day of discharge, she did not bring them into the hospital with her and says she does not know where they are. She is repeatedly demonstrated complete inability to provide for her own basic needs outside of the hospital, including health, welfare, nursing home, food, and safety. Inpatient treatment is medically necessary due to the severity of her symptoms and risk for suicide if discharged. She is now on a 304 involuntary commitment, and we are recommending long-term inpatient treatment at the [facility]. Referral packet was sent for review on 09/07/2019, we still have not received any information regarding acceptance despite several attempts at communication with the facility. (1) Schizoaffective disorder, bipolar type: 09/03/19 -The patient has been admitted to the locked, secured behavioral health unit and has been placed in special observation room. She is also being monitored with close observations and every 15-minute direct observation. When more stable she will be actively encouraged to participate in individual, group, and activity therapies. We will also attempt to involve the family if the patient permits us to and if they agree. - Resuming medications as was rx'd at time of discharge on 08/29 including po Invega, lithium, and Sustenna. 09/03 -continue current medications, patient is taking them. -File for 306 conversion hearing to be held 09/06/2019. She will likely need referral to the [facility] due to the need for long-term inpatient treatment. -Reviewed FLP and FG from recent hospitalization 08/07/2019: Cholesterol 221, glucose 109, other values within normal limits. -Attempt to involve family is able; son-in-law Poli is petitioner and was involved in hospitalization so we will ask staff to contact him for collateral information and to determine the family's ability to assist with discharge planning and housing. She has very limited supports in the community and if they are unable to assist her with housing and care, she will likely require long-term hospitalization. -Continue private room for psychosis. 09/04 - Continue current medication regimen - patient has been compliant with medications in this structured environment - 306 conversion hearing scheduled for 09/05 - Meeting with piano case and bench assembler today to discuss treatment options and continue attempts to build rapport - Referral to [facility] is being recommended at this time has patient has repeatedly demonstrated an inability to care for self and provide for basic needs without the support of a structured psychiatric setting. - EKG (WNL). PPD was refused by patient - CXR ordered 09/05 -306 hearing held and patient converted to a 304 involuntary commitment. -Referred to [facility] for long-term inpatient treatment, as patient is severely ill and unable to provide for her own basic needs as a result of her mental illness, and treatment for 27 days on our acute unit was insufficient for successful transition to the community. She was at [facility] for 4 months within the past year, and did respond to treatment there, so returned to the [facility] as recommended for long-term treatment of SPMI. -EKG and chest x-ray completed for [facility] referral. 09/06 - Continue current medication regimen - Referral to [facility] is being prepared, approval was reportedly received from the county - Ongoing attempt to build rapport with psychiatric piano case and bench assembler 09/07 - 09/09 - Continue current medication regimen - Referral sent to [facility] on 09/07/2019 for recommended long- term psychiatric hospitalization based on chronic medication/treatment non- compliance and repeated demonstration of inability to care for self outside of a structured psychiatric setting. - Pt was informed of [facility] referral today during encounter 09/10 - Continue current medication regimen - [facility] referral sent on 09/07/2019 - requesting updates regarding when case is anticipated to be reviewed and ensure information was received - Pt continues to demand to leave, unable to appreciated the severity of her condition. Ongoing concern related to patient's repeated demonstration of inability to care for self outside of a structured psychiatric setting. 09/11 - Continue current medication regimen - Awaiting acceptance at [facility]. Ongoing concern related to patient's repeated demonstration of inability to care for self outside of a structured psychiatric setting. 09/12 - 09/14 - Pt due for next injection of Invega Sustenna 234mg IM on 09/16. Oral supplementation was continued from last hospitalization due to concern for ongoing instability with regard to psychotic symptoms. In preparation for first maintenance dose, will reduce oral supplementation to 3mg qAM and discontinue oral paliperidone on 09/16. Continue lithium 450mg BID unchanged. - Awaiting replay for [facility] regarding referral. Ongoing concern related to patient's repeated demonstration of inability to care for self outside of a structured psychiatric setting. Pt has consistently not been agreeable to diversion planning as a result of fixed delusional beliefs that she has family support, that she has a house to live in, and that she has a lot of money - none of these statements confirmed to be true. 09/15 -Continue treatment plan as previously prescribed 09/16 -now fully converted to invega sustenna. 09/17 - Continue current treatment plan 09/18 - 09/20 - Continue current treatment plan - Confirmed that information from patient's hospitalization at our facility was received by [facility], but case has not yet been reviewed. Still awaiting determination of acceptance status. 09/21 - continue current meds and tx plan. Reinstitute medically necessary private room as hx of aggression, labile mood, poor ability to keep contact precautions with COVID, hx homelessness higher risk category 09/22 - 09/23 - continue current meds and tx plan. 09/24 continue current meds and tx plan. MNPR for now as less paranoid and more visible on unit. 09/25 - Continue current treatment plan - patient remains irritable, paranoid, and delusional - Continue MNPR for paranoia and irritability 09/26 - Continue current treatment plan - Still awaiting response from [facility], 3 weeks after initially referral packet was sent - Pt did reportedly complete her Medical Assistance application. Consider repeat meeting with the county to discuss options for diversion planning; though these remain very limited - As review of patient's treatment plan has historically been very upsetting to the patient, discharge plans have not changed, and the therapeutic value of the review is limited - discussed with patient who did agree to review her treatment plan once a week unless there are changes in the interim. This was confirmed by multiple parties and can be reviewed with greater frequency at which time patient better tolerates the conversation and the therapeutic value is increased. 09/27 - 09/28 - Continue current treatment plan - Still awaiting response from [facility] - Pt is unwilling to consider alternative housing options - she maintains the delusion that she has a penthouse in [email or web address] which has been confirmed to be untrue. (2) Noncompliance with medication regimen: 09/02 - Unable to clarify if pt has been taking her medications regularly in the days since discharge. She at first indicated that she was not then indicated the medications arein a bag of hers but did not indicate actually taking them. The patient also claims to not recall the names of any of her medications and reports that she does not have the conditions for which her known medications are clearly intended. Possible cognitive impairments. might be impacting medication compliance. language impairments with pt not speaking Ivorian impacting compliance concerns. -The patient's underlying psychiatric condition will be actively treated. It is hoped that with treatment we will be able to improve medication compliance and also address aspects that impact compliance and improve this with appropriate interventions. CANTOR form of Invega to be continued at this time, next dose not due for another 2 weeks. Pt took meds this morning that were offered to her but given her extensive non compliance prior to, during and seeming after recent admission and lack of insight to her dx and presentation and indicating that recent hospitalization was quite helpful for her and her indicating wanting to continue her medications as was rx' at end of recent [facility] admission and were instructed to take at that discharge. I am in favor of medication over objection if pt objects to taking her medication during the course of this admission or if it is determined that pt is checking or not actually taking her medications. (3) Homeless: 09/03/19 -In the past, the patient has lived with family members. However, this is clearly not an option at the present time. The context is that the patient reportedly was in [facility] for approximately a year because of her making terroristic threats against the family. While it does seem clear that the family wants to help protect her, they are unable to safely provide nursing home. Given the patient's history of neglect of self-care, medication nonadherence, and possible cognitive deficits we are going to investigate structured residential programs as part of our discharge planning. 09/03 -patient has consistently refused assistance with housing, insisting that she has a house in [place], although has not been able to provide an address and her family states this is not true. 09/06 - Patient's grandson called unit yesterday to provide additional information, stating the patient has been homeless for quite some time and there is no valid address for the patient (4) Involuntary commitment: 09/03 -patient on a 304 IOC, readmitted on a 302. We will file for a 306 conversion hearing. 09/04 - 306 hearing scheduled for 09/05; anticipate referral to [facility]. 09/05 -306 conversion granted, now here on a 304 involuntary commitment. 09/07 - Referral packet sent to [facility] on 09/06 (5) Nicotine abuse: 09/02 - Nicotine Patch 7mg topical daily resumed, and smoking cessation to be done when pt is in more apposite mental state to do so Inventory Assets Strengths: concerned family members, pleasant on approach Needs: stable housing, improved compliance to medication and treatment plan. Risk Factors Assessment Male: No : No Do You Have Access To A Gun?: No Health Problems: No Mental Health Diagnoses: Yes Substance Use Disorders: No Previous Attempt: Yes (Per family, patient denies) Previous Psychiatric Hospitalization: Yes Hopelessness: No Smoker: Yes Protective Factors Assessment : No Responsible for Young Children: No Employed: No Stable Relationships: No Supportive Family: No Good Rapport with Provider: No Interval History Identifying Information ANDREW CYR is a 63-year-old F who currently is homeless in [facility], has a history of schizoaffective disorder, bipolar type, and was admitted on 09/03/19 05:42 on a 302 involuntary commitment for psychosis, suicidal ideation, inability to provide for basic needs, and medication noncompliance. Chief Complaint "Good. Thank you." Review of Systems Notes Constitutional: denied Cardiovascular: denied Respiratory: denied Gastrointestinal: denied Neurological: denied Psychiatric: denies symptoms other than stated above Total of at least 10 systems reviewed, pertinent positives as above and in HPI. Sleep Information Total Hours of Sleep: 7 Sleep Comments: she remains to fall asleep with her overbed light on which is tuned off by staff. a smaller light is turned on over the other bed. Meal Information Percent Meal Consumed - Breakfast: 100 Percent Meal Consumed - Lunch: 100 Percent Meal Consumed - Dinner: 100 Nutrition Comment: documented from the pt. meal record Subjective Subjective Patient was seen & assessed and interval progress reviewed with treatment team. Staff report the patient has maintained appropriate behavior as a result of the structured hospital setting. It is reported her referral was reviewed at [facility], but additional questions were directed to the county for further explanation. Still awaiting decision on acceptance. Pt was seen today to assess progress since admission. Georgian-Ivorian conversation was conducted with assistance from [employer] interpretive services - Royce #[id number]. Pt states she is "good. Thank you." She denies any new concerns or topics she wishes to discuss. Pt states that she feels comfortable on this unit, as this provider referenced her radio constantly playing and various Georgian resources that have been provided. Pt was asked if she would like any additional activities or readings to be printed off for her, which she declines at this time. Pt denied physical concerns today, specifically denying any abdominal pain since two evenings ago. Pt denied additional questions or concerns at this time. Physical Exam Psychiatric Orientation: alert and cooperative (superficially) Apperance: appropriately dressed (casually, in t-shirt and leggings), + d isheveled and appeared stated age Eye Contact: + fair eye contact Motor Behavior: no abnormal motor movements Speech: normal rate/rhythm/volume of speech Affect: + blunted affect (does maintains consistent affect for duration of interview); no irritable affect Mood: no depressed mood ("Good") Thought Process: goal directed thought process and + concrete thought process Thought Content: no delusions (maintains appropriate superficial conversation) Suicidal Thoughts: denies suicidal thoughts Homicidal Thoughts: denies homicidal thoughts Insight: + impaired insight Judgement: + impaired judgement Vital Signs (Past 24 Hours) Last Vital Signs Temp 36.6 C 09/29/19 06:59 Pulse 74 09/29/19 07:00 Resp 18 09/29/19 06:59 BP 137/84 09/29/19 07:00 Pulse Ox 95 09/03/19 05:47 [facility] & [facility] Current Inpatient Medications Current Inpatient Medications: Current Inpatient Medications Acetaminophen (Tylenol) 650 mg PO Q4H PRN PRN Reason: Headache or Minor Fever Stop: 10/03/19 05:41 Last Admin: 09/24/19 10:34 Dose: 650 mg Documented by: Al Hydrox/Mg Hydrox/Simethicone (Maalox) 30 ml PO Q4H PRN PRN Reason: GI Upset Stop: 10/03/19 05:41 Bismuth Subsalicylate (Kaopectate) 15 ml PO PRN PRN PRN Reason: Loose Stool Stop: 10/03/19 05:41 Clotrimazole (Lotrimin 1%) 1 appln EXT BID [facility] Stop: 10/24/19 20:59 Last Admin: 09/29/19 08:59 Dose: 1 appln Documented by: Docusate Sodium (Colace) 100 mg PO BID [facility] Stop: 10/05/19 08:59 Last Admin: 09/29/19 08:56 Dose: 100 mg Documented by: Hydroxyzine HCl (Vistaril) 50 mg PO HSZ PRN PRN Reason: Insomnia Stop: 10/03/19 05:41 Hydroxyzine HCl (Vistaril) 25 mg PO Q4H PRN PRN Reason: Anxiety Stop: 10/03/19 05:41 Levothyroxine Sodium (Synthroid) 75 mcg PO DAILYBB [facility] Stop: 10/03/19 07:59 Last Admin: 09/29/19 08:56 Dose: 75 mcg Documented by: Gordon Carbonate (Eskalith) 450 mg PO BID [facility] Stop: 10/03/19 20:59 Last Admin: 09/29/19 08:56 Dose: 450 mg Documented by: Magnesium Hydroxide (Milk Of Magnesia) 30 ml PO DAILY PRN PRN Reason: Constipation Stop: 10/03/19 05:41 Miscellaneous (Remove Nicoderm Patch) 1 ea N/A DAILY@0859 [facility] Stop: 10/04/19 08:58 Last Admin: 09/29/19 09:00 Dose: 1 ea Documented by: Nicotine (Nicoderm Cq) 7 mg TD QAM [facility] Stop: 10/03/19 16:29 Last Admin: 09/29/19 08:57 Dose: 7 mg Documented by: Simvastatin (Zocor) 10 mg PO HS [facility] Stop: 10/03/19 21:59 Last Admin: 09/28/19 20:49 Dose: 10 mg Documented by: Sodium Chloride (Kirwin Nasal) 1 - 2 sprays NA PRN PRN PRN Reason: Nasal Dryness/Congestion Stop: 10/03/19 05:41 Mental Health & Subst Abuse Tx Psychiatrist Name of Psychiatrist: Jackelin Psychiatrist's Date of Appointment with Psychiatrist: 09/14/19 Time of Appointment with Psychiatrist: 11:00 a.m. Psychiatric Appointment Comment: [address] [place] [address] Therapist Name of Therapist: None Pharmaceutical Assistant Name of Pharmaceutical Assistant: [facility] Lizzy Pandey Phone Number for Pharmaceutical Assistant: [phone] Post Discharge Appointments Primary Care Physician Name Of Family Doctor: [facility] Primary Care Provider Appointment Comment: [address], [address], [place] [address]
[2019-09-29] MEDS: SIMVASTATIN 10 MG TAB PO SCH (21:01)
[2019-09-30] MEDS: LEVOTHYROXINE SODIUM 75 MCG TABLET PO SCH (07:44)
[2019-09-30] MEDS: LITHIUM CARBONATE 450 MG TABCR PO SCH ×2 (07:44→20:50)
[2019-09-30] MEDS: NICOTINE 7 MG/24 HR TDSY TD SCH (07:44)
[2019-09-30] MEDS: DOCUSATE SODIUM 100 MG CAP PO SCH ×2 (07:44→20:50)
[2019-09-30] MEDS: CLOTRIMAZOLE 1% CR 15 GM TUBE EXT SCH ×2 (07:45→20:50)
--- NOTE | 2019-09-30 10:44 | Psychiatric Progress Note ---
Date of Service September 30, 2019 Impression / Recommendations Impression 63-year-old Syrian female with schizoaffective disorder bipolar type admitted on a 302 commitment 4 days after being discharged from this unit on 08/29 after a 27-day hospitalization. She was discharged on a 304 IOC, and return to the ER later that same day, after police were called due to bizarre behavior at a local grocery store, but was again discharged. Readmitted with psychotic symptoms including paranoia, delusions of persecution (that family and people at the intermediate were trying to poison/harm her), refusing to eat with hypokalemia, homelessness, delusions that she owns a home, and inability to provide for her own basic needs. Additionally, family members who petitioned reported she made suicidal statements and walked into traffic, and reported delusions that her son had stabbed her in her intestines were hanging out. They also reported she had been noncompliant with oral psychotropic medications, and although her corrections caseworker assisted her to fill these on the day of discharge, she did not bring them into the hospital with her and says she does not know where they are. She is repeatedly demonstrated complete inability to provide for her own basic needs outside of the hospital, including health, welfare, intermediate, food, and safety. Inpatient treatment is medically necessary due to the severity of her symptoms and risk for suicide if discharged. She is now on a 304 involuntary commitment, and we are recommending long-term inpatient treatment at the [facility]. Referral packet was sent for review on 09/07/2019, we still have not received any information regarding acceptance despite several attempts at communication with the facility. (1) Schizoaffective disorder, bipolar type: 09/03/19 -The patient has been admitted to the locked, secured behavioral health unit and has been placed in special observation room. She is also being monitored with close observations and every 15-minute direct observation. When more stable she will be actively encouraged to participate in individual, group, and activity therapies. We will also attempt to involve the family if the patient permits us to and if they agree. - Resuming medications as was rx'd at time of discharge on 08/29 including po Invega, lithium, and Sustenna. 09/03 -continue current medications, patient is taking them. -File for 306 conversion hearing to be held 09/06/2019. She will likely need referral to the [facility] due to the need for long-term inpatient treatment. -Reviewed FLP and FG from recent hospitalization 08/07/2019: Cholesterol 221, glucose 109, other values within normal limits. -Attempt to involve family is able; son-in-law Poli is petitioner and was involved in hospitalization so we will ask staff to contact him for collateral information and to determine the family's ability to assist with discharge planning and housing. She has very limited supports in the community and if they are unable to assist her with housing and care, she will likely require long-term hospitalization. -Continue private room for psychosis. 09/04 - Continue current medication regimen - patient has been compliant with medications in this structured environment - 306 conversion hearing scheduled for 09/05 - Meeting with corrections caseworker today to discuss treatment options and continue attempts to build rapport - Referral to [facility] is being recommended at this time has patient has repeatedly demonstrated an inability to care for self and provide for basic needs without the support of a structured psychiatric setting. - EKG (WNL). PPD was refused by patient - CXR ordered 09/05 -306 hearing held and patient converted to a 304 involuntary commitment. -Referred to [facility] for long-term inpatient treatment, as patient is severely ill and unable to provide for her own basic needs as a result of her mental illness, and treatment for 27 days on our acute unit was insufficient for successful transition to the community. She was at [facility] for 4 months within the past year, and did respond to treatment there, so returned to the [facility] as recommended for long-term treatment of SPMI. -EKG and chest x-ray completed for [facility] referral. 09/06 - Continue current medication regimen - Referral to [facility] is being prepared, approval was reportedly received from the county - Ongoing attempt to build rapport with psychiatric corrections caseworker 09/07 - 09/09 - Continue current medication regimen - Referral sent to [facility] on 09/07/2019 for recommended long- term psychiatric hospitalization based on chronic medication/treatment non- compliance and repeated demonstration of inability to care for self outside of a structured psychiatric setting. - Pt was informed of [facility] referral today during encounter 09/10 - Continue current medication regimen - [place] referral sent on 09/07/2019 - requesting updates regarding when case is anticipated to be reviewed and ensure information was received - Pt continues to demand to leave, unable to appreciated the severity of her condition. Ongoing concern related to patient's repeated demonstration of inability to care for self outside of a structured psychiatric setting. 09/11 - Continue current medication regimen - Awaiting acceptance at [facility]. Ongoing concern related to patient's repeated demonstration of inability to care for self outside of a structured psychiatric setting. 09/12 - 09/14 - Pt due for next injection of Invega Sustenna 234mg IM on 09/16. Oral supplementation was continued from last hospitalization due to concern for ongoing instability with regard to psychotic symptoms. In preparation for first maintenance dose, will reduce oral supplementation to 3mg qAM and discontinue oral paliperidone on 09/16. Continue lithium 450mg BID unchanged. - Awaiting replay for [facility] regarding referral. Ongoing concern related to patient's repeated demonstration of inability to care for self outside of a structured psychiatric setting. Pt has consistently not been agreeable to diversion planning as a result of fixed delusional beliefs that she has family support, that she has a house to live in, and that she has a lot of money - none of these statements confirmed to be true. 09/15 -Continue treatment plan as previously prescribed 09/16 -now fully converted to invega sustenna. 09/17 - Continue current treatment plan 09/18 - 09/20 - Continue current treatment plan - Confirmed that information from patient's hospitalization at our facility was received by [facility], but case has not yet been reviewed. Still awaiting determination of acceptance status. 09/21 - continue current meds and tx plan. Reinstitute medically necessary private room as hx of aggression, labile mood, poor ability to keep contact precautions with COVID, hx homelessness higher risk category 09/22 - 09/23 - continue current meds and tx plan. 09/24 continue current meds and tx plan. MNPR for now as less paranoid and more visible on unit. 09/25 - Continue current treatment plan - patient remains irritable, paranoid, and delusional - Continue MNPR for paranoia and irritability 09/26 - Continue current treatment plan - Still awaiting response from [facility], 3 weeks after initially referral packet was sent - Pt did reportedly complete her Medical Assistance application. Consider repeat meeting with the county to discuss options for diversion planning; though these remain very limited - As review of patient's treatment plan has historically been very upsetting to the patient, discharge plans have not changed, and the therapeutic value of the review is limited - discussed with patient who did agree to review her treatment plan once a week unless there are changes in the interim. This was confirmed by multiple parties and can be reviewed with greater frequency at which time patient better tolerates the conversation and the therapeutic value is increased. 09/27 - 09/29 - Continue current treatment plan - Still awaiting response from [facility] - Pt is unwilling to consider alternative housing options - she maintains the delusion that she has a penthouse in [place] which has been confirmed to be untrue. (2) Noncompliance with medication regimen: 09/02 - Unable to clarify if pt has been taking her medications regularly in the days since discharge. She at first indicated that she was not then indicated the medications arein a bag of hers but did not indicate actually taking them. The patient also claims to not recall the names of any of her medications and reports that she does not have the conditions for which her known medications are clearly intended. Possible cognitive impairments. might be impacting medication compliance. language impairments with pt not speaking Bulgarian impacting compliance concerns. -The patient's underlying psychiatric condition will be actively treated. It is hoped that with treatment we will be able to improve medication compliance and also address aspects that impact compliance and improve this with appropriate interventions. CANTOR form of Invega to be continued at this time, next dose not due for another 2 weeks. Pt took meds this morning that were offered to her but given her extensive non compliance prior to, during and seeming after recent admission and lack of insight to her dx and presentation and indicating that recent hospitalization was quite helpful for her and her indicating wanting to continue her medications as was rx' at end of recent [facility] admission and were instructed to take at that discharge. I am in favor of medication over objection if pt objects to taking her medication during the course of this admission or if it is determined that pt is checking or not actually taking her medications. (3) Homeless: 09/03/19 -In the past, the patient has lived with family members. However, this is clearly not an option at the present time. The context is that the patient reportedly was in [facility] for approximately a year because of her making terroristic threats against the family. While it does seem clear that the family wants to help protect her, they are unable to safely provide intermediate. Given the patient's history of neglect of self-care, medication nonadherence, and possible cognitive deficits we are going to investigate structured residential programs as part of our discharge planning. 09/03 -patient has consistently refused assistance with housing, insisting that she has a house in [place], although has not been able to provide an address and her family states this is not true. 09/06 - Patient's grandson called unit yesterday to provide additional information, stating the patient has been homeless for quite some time and there is no valid address for the patient 09/29 pt remains delusional about having a home and is agitated if this is approached or challenged in anyway (4) Involuntary commitment: 09/03 -patient on a 304 IOC, readmitted on a 302. We will file for a 306 conversion hearing. 09/04 - 306 hearing scheduled for 09/05; anticipate referral to [facility]. 09/05 -306 conversion granted, now here on a 304 involuntary commitment. 09/07 - Referral packet sent to [facility] on 09/06 (5) Nicotine abuse: 09/02 - Nicotine Patch 7mg topical daily resumed, and smoking cessation to be done when pt is in more apposite mental state to do so Inventory Assets Strengths: concerned family members, pleasant on approach Needs: stable housing, improved compliance to medication and treatment plan. Risk Factors Assessment Male: No : No Do You Have Access To A Gun?: No Health Problems: No Mental Health Diagnoses: Yes Substance Use Disorders: No Previous Attempt: Yes (Per family, patient denies) Previous Psychiatric Hospitalization: Yes Hopelessness: No Smoker: Yes Protective Factors Assessment : No Responsible for Young Children: No Employed: No Stable Relationships: No Supportive Family: No Good Rapport with Provider: No Interval History Identifying Information ANDREW CYR is a 63-year-old F who currently is homeless in [facility], has a history of schizoaffective disorder, bipolar type, and was admitted on 09/03/19 05:42 on a 302 involuntary commitment for psychosis, suicidal ideation, inability to provide for basic needs, and medication noncompliance. Chief Complaint "I am good". Review of Systems Sleep Information Total Hours of Sleep: 6.25 Sleep Comments: she remains to fall asleep with her overbed light on which is tuned off by staff. a smaller light is turned on over the other bed. Meal Information Percent Meal Consumed - Breakfast: 100 Percent Meal Consumed - Lunch: 100 Percent Meal Consumed - Dinner: 100 Nutrition Comment: documented from the pt. meal record Subjective Subjective Patient was seen & assessed and interval progress reviewed with nursing and social work. Pt is sleeping well and eating her meals, she remains on MNPR at this time. She is not attenting groups She did speak with her grandson last night and he told the staff he felt she was doing "better" than time of admission but still she did not have a home to go to. Met with patient with tele-video Lao INterpretor Sana is on INvega Sustenna and today denies side effects, sleeping and eating well having regular bowel movements and denies tremor, stiffness or movements of her toungue, she denies other physical concerns. She denies being parnaoid here and mood is "good." When asked about her goal for today she says it is "to leave the hospital toda y." She states she is going to live in her home where the President and the maid are having a green party. Provider noted that she does not have a home, and that we are pursuing a place at the [facility]. Pt becomes upset and insulting stating 'you are a psychologist and you are nothing." THe interpretor notes that she could not catch everyword after that but the summary of which was a string of ambiguous insults not necessarily to this provider but in general. Pt asked provider to leave and said "goodbye." Physical Exam Psychiatric Orientation: alert, oriented to person and oriented to place sitting up in bed having returned with stable gait unassisted to her bed. She makes good EC with provider when speaking and with interpretor when translating until pt becomes upset then she speaks to the air finger raised and shows tension in her body and arm. Speech is intially socially polite and cheerful but labile to angry and intense tone, increased rate and rythm and volume labile from pleasant to angry initially "good" but labile to anger initially goal directed and coherent digressing to rapid flow of angry statements that are hard to follow Thought Content: + delusions Suicidal Thoughts: denies suicidal thoughts Homicidal Thoughts: denies homicidal thoughts she denies AVH, paranoia in the hospital Cognition: attention grossly intact Estimated Intelligence: consistent with education level Insight: + impaired insight Judgement: + impaired judgement Vital Signs (Past 24 Hours) Last Vital Signs Temp 36.7 C 09/30/19 06:48 Pulse 76 09/30/19 06:49 Resp 16 09/30/19 06:48 BP 133/81 09/30/19 06:49 Pulse Ox 95 09/03/19 05:47 Results & Data ([facility]) Current Inpatient Medications Current Inpatient Medications: Current Inpatient Medications Acetaminophen (Tylenol) 650 mg PO Q4H PRN PRN Reason: Headache or Minor Fever Stop: 10/03/19 05:41 Last Admin: 09/24/19 10:34 Dose: 650 mg Documented by: Al Hydrox/Mg Hydrox/Simethicone (Maalox) 30 ml PO Q4H PRN PRN Reason: GI Upset Stop: 10/03/19 05:41 Bismuth Subsalicylate (Kaopectate) 15 ml PO PRN PRN PRN Reason: Loose Stool Stop: 10/03/19 05:41 Clotrimazole (Lotrimin 1%) 1 appln EXT BID [facility] Stop: 10/24/19 20:59 Last Admin: 09/30/19 07:45 Dose: 1 appln Documented by: Docusate Sodium (Colace) 100 mg PO BID [facility] Stop: 10/05/19 08:59 Last Admin: 09/30/19 07:44 Dose: 100 mg Documented by: Hydroxyzine HCl (Vistaril) 50 mg PO HSZ PRN PRN Reason: Insomnia Stop: 10/03/19 05:41 Hydroxyzine HCl (Vistaril) 25 mg PO Q4H PRN PRN Reason: Anxiety Stop: 10/03/19 05:41 Levothyroxine Sodium (Synthroid) 75 mcg PO DAILYBB CLARISA Stop: 10/03/19 07:59 Last Admin: 09/30/19 07:44 Dose: 75 mcg Documented by: Yah-Ta-Hey Carbonate (Eskalith) 450 mg PO BID [facility] Stop: 10/03/19 20:59 Last Admin: 09/30/19 07:44 Dose: 450 mg Documented by: Magnesium Hydroxide (Milk Of Magnesia) 30 ml PO DAILY PRN PRN Reason: Constipation Stop: 10/03/19 05:41 Miscellaneous (Remove Nicoderm Patch) 1 ea N/A DAILY@0859 [facility] Stop: 10/04/19 08:58 Last Admin: 09/30/19 07:50 Dose: 1 ea Documented by: Nicotine (Nicoderm Cq) 7 mg TD QAM CLARISA Stop: 10/03/19 16:29 Last Admin: 09/30/19 07:44 Dose: 7 mg Documented by: Simvastatin (Zocor) 10 mg PO HS CLARISA Stop: 10/03/19 21:59 Last Admin: 09/29/19 21:01 Dose: 10 mg Documented by: Sodium Chloride ([place] Nasal) 1 - 2 sprays NA PRN PRN PRN Reason: Nasal Dryness/Congestion Stop: 10/03/19 05:41 Mental Health & Subst Abuse Tx Psychiatrist Name of Psychiatrist: Jackelin Psychiatrist's Date of Appointment with Psychiatrist: 09/14/19 Time of Appointment with Psychiatrist: 11:00 a.m. Psychiatric Appointment Comment: [address] [place] [address] Therapist Name of Therapist: None Aircraft Captain Name of Aircraft Captain: [employer] - Lizzy Pandey Phone Number for Aircraft Captain: [phone] Post Discharge Appointments Primary Care Physician Name Of Family Doctor: [facility] Primary Care Provider Appointment Comment: [address], [address], [place] [address]
[2019-09-30] MEDS: SIMVASTATIN 10 MG TAB PO SCH (20:53)
[2019-10-01] MEDS: DOCUSATE SODIUM 100 MG CAP PO SCH ×2 (07:58→20:56)
[2019-10-01] MEDS: NICOTINE 7 MG/24 HR TDSY TD SCH (07:58)
[2019-10-01] MEDS: LITHIUM CARBONATE 450 MG TABCR PO SCH ×2 (07:58→20:56)
[2019-10-01] MEDS: LEVOTHYROXINE SODIUM 75 MCG TABLET PO SCH (07:58)
[2019-10-01] MEDS: CLOTRIMAZOLE 1% CR 15 GM TUBE EXT SCH ×2 (07:59→20:57)
--- NOTE | 2019-10-01 11:49 | Psychiatric Progress Note ---
Date of Service October 01, 2019 Impression / Recommendations Impression 63-year-old Togol[place] female with schizoaffective disorder bipolar type admitted on a 302 commitment 4 days after being discharged from this unit on 08/29 after a 27-day hospitalization. She was discharged on a 304 IOC, and return to the ER later that same day, after police were called due to bizarre behavior at a local grocery store, but was again discharged. Readmitted with psychotic symptoms including paranoia, delusions of persecution (that family and people at the senior living were trying to poison/harm her), refusing to eat with hypokalemia, homelessness, delusions that she owns a home, and inability to provide for her own basic needs. Additionally, family members who petitioned reported she made suicidal statements and walked into traffic, and reported delusions that her son had stabbed her in her intestines were hanging out. They also reported she had been noncompliant with oral psychotropic medications, and although her family preservation caseworker assisted her to fill these on the day of discharge, she did not bring them into the hospital with her and says she does not know where they are. She is repeatedly demonstrated complete inability to provide for her own basic needs outside of the hospital, including health, welfare, senior living, food, and safety. Inpatient treatment is medically necessary due to the severity of her symptoms and risk for suicide if discharged. She is now on a 304 involuntary commitment, and we are recommending long-term inpatient treatment at the [facility]. Referral packet was sent for review on 09/07/2019, we still have not received any information regarding acceptance despite several attempts at communication with the facility. (1) Schizoaffective disorder, bipolar type: 09/03/19 -The patient has been admitted to the locked, secured behavioral health unit and has been placed in special observation room. She is also being monitored with close observations and every 15-minute direct observation. When more stable she will be actively encouraged to participate in individual, group, and activity therapies. We will also attempt to involve the family if the patient permits us to and if they agree. - Resuming medications as was rx'd at time of discharge on 08/29 including po Invega, lithium, and Sustenna. 09/03 -continue current medications, patient is taking them. -File for 306 conversion hearing to be held 09/06/2019. She will likely need referral to the [facility] due to the need for long-term inpatient treatment. -Reviewed FLP and FG from recent hospitalization 08/07/2019: Cholesterol 221, glucose 109, other values within normal limits. -Attempt to involve family is able; son-in-law Poli is petitioner and was involved in hospitalization so we will ask staff to contact him for collateral information and to determine the family's ability to assist with discharge planning and housing. She has very limited supports in the community and if they are unable to assist her with housing and care, she will likely require long-term hospitalization. -Continue private room for psychosis. 09/04 - Continue current medication regimen - patient has been compliant with medications in this structured environment - 306 conversion hearing scheduled for 09/05 - Meeting with family preservation caseworker today to discuss treatment options and continue attempts to build rapport - Referral to [facility] is being recommended at this time has patient has repeatedly demonstrated an inability to care for self and provide for basic needs without the support of a structured psychiatric setting. - EKG (WNL). PPD was refused by patient - CXR ordered 09/05 -306 hearing held and patient converted to a 304 involuntary commitment. -Referred to [facility] for long-term inpatient treatment, as patient is severely ill and unable to provide for her own basic needs as a result of her mental illness, and treatment for 27 days on our acute unit was insufficient for successful transition to the community. She was at [facility] for 4 months within the past year, and did respond to treatment there, so returned to the [facility] as recommended for long-term treatment of SPMI. -EKG and chest x-ray completed for [facility] referral. 09/06 - Continue current medication regimen - Referral to [facility] is being prepared, approval was reportedly received from the county - Ongoing attempt to build rapport with psychiatric family preservation caseworker 09/07 - 09/09 - Continue current medication regimen - Referral sent to [facility] on 09/07/2019 for recommended long- term psychiatric hospitalization based on chronic medication/treatment non- compliance and repeated demonstration of inability to care for self outside of a structured psychiatric setting. - Pt was informed of [facility] referral today during encounter 09/10 - Continue current medication regimen - [place] referral sent on 09/07/2019 - requesting updates regarding when case is anticipated to be reviewed and ensure information was received - Pt continues to demand to leave, unable to appreciated the severity of her condition. Ongoing concern related to patient's repeated demonstration of inability to care for self outside of a structured psychiatric setting. 09/11 - Continue current medication regimen - Awaiting acceptance at [facility]. Ongoing concern related to patient's repeated demonstration of inability to care for self outside of a structured psychiatric setting. 09/12 - 09/14 - Pt due for next injection of Invega Sustenna 234mg IM on 09/16. Oral supplementation was continued from last hospitalization due to concern for ongoing instability with regard to psychotic symptoms. In preparation for first maintenance dose, will reduce oral supplementation to 3mg qAM and discontinue oral paliperidone on 09/16. Continue lithium 450mg BID unchanged. - Awaiting replay for [facility] regarding referral. Ongoing concern related to patient's repeated demonstration of inability to care for self outside of a structured psychiatric setting. Pt has consistently not been agreeable to diversion planning as a result of fixed delusional beliefs that she has family support, that she has a house to live in, and that she has a lot of money - none of these statements confirmed to be true. 09/15 -Continue treatment plan as previously prescribed 09/16 -now fully converted to invega sustenna. 09/17 - Continue current treatment plan 09/18 - 09/20 - Continue current treatment plan - Confirmed that information from patient's hospitalization at our facility was received by [facility], but case has not yet been reviewed. Still awaiting determination of acceptance status. 09/21 - continue current meds and tx plan. Reinstitute medically necessary private room as hx of aggression, labile mood, poor ability to keep contact precautions with COVID, hx homelessness higher risk category 09/22 - 09/23 - continue current meds and tx plan. 09/24 continue current meds and tx plan. MNPR for now as less paranoid and more visible on unit. 09/25 - Continue current treatment plan - patient remains irritable, paranoid, and delusional - Continue MNPR for paranoia and irritability 09/26 - Continue current treatment plan - Still awaiting response from [facility], 3 weeks after initially referral packet was sent - Pt did reportedly complete her Medical Assistance application. Consider repeat meeting with the county to discuss options for diversion planning; though these remain very limited - As review of patient's treatment plan has historically been very upsetting to the patient, discharge plans have not changed, and the therapeutic value of the review is limited - discussed with patient who did agree to review her treatment plan once a week unless there are changes in the interim. This was confirmed by multiple parties and can be reviewed with greater frequency at which time patient better tolerates the conversation and the therapeutic value is increased. 09/27 - 09/29 - 09/30 - Continue current treatment plan - Still awaiting response from [facility] - Pt is unwilling to consider alternative housing options - she maintains the delusion that she has a penthouse in [place] which has been confirmed to be untrue. (2) Noncompliance with medication regimen: 09/02 - Unable to clarify if pt has been taking her medications regularly in the days since discharge. She at first indicated that she was not then indicated the medications arein a bag of hers but did not indicate actually taking them. The patient also claims to not recall the names of any of her medications and reports that she does not have the conditions for which her kn own medications are clearly intended. Possible cognitive impairments. might be impacting medication compliance. language impairments with pt not speaking [place]ian impacting compliance concerns. -The patient's underlying psychiatric condition will be actively treated. It is hoped that with treatment we will be able to improve medication compliance and also address aspects that impact compliance and improve this with appropriate interventions. CANTOR form of Invega to be continued at this time, next dose not due for another 2 weeks. Pt took meds this morning that were offered to her but given her extensive non compliance prior to, during and seeming after recent admission and lack of insight to her dx and presentation and indicating that recent hospitalization was quite helpful for her and her indicating wanting to continue her medications as was rx' at end of recent [facility] admission and were instructed to take at that discharge. I am in favor of medication over objection if pt objects to taking her medication during the course of this admission or if it is determined that pt is checking or not actually taking her medications. (3) Homeless: 09/03/19 -In the past, the patient has lived with family members. However, this is clearly not an option at the present time. The context is that the patient reportedly was in long-term for approximately a year because of her making terroristic threats against the family. While it does seem clear that the family wants to help protect her, they are unable to safely provide senior living. Given the patient's history of neglect of self-care, medication nonadherence, and possible cognitive deficits we are going to investigate structured residential programs as part of our discharge planning. 09/03 -patient has consistently refused assistance with housing, insisting that she has a house in [place], although has not been able to provide an address and her family states this is not true. 09/06 - Patient's grandson called unit yesterday to provide additional information, stating the patient has been homeless for quite some time and there is no valid address for the patient 09/29 pt remains delusional about having a home and is agitated if this is approached or challenged in anyway 09/30 did not discuss further today as this is a point of delusion and been shown to be refractory to challenging in anyway (4) Involuntary commitment: 09/03 -patient on a 304 IOC, readmitted on a 302. We will file for a 306 conversion hearing. 09/04 - 306 hearing scheduled for 09/05; anticipate referral to [facility]. 09/05 -306 conversion granted, now here on a 304 involuntary commitment. 09/07 - Referral packet sent to [facility] on 09/06 (5) Nicotine abuse: 09/02 - Nicotine Patch 7mg topical daily resumed, and smoking cessation to be done when pt is in more apposite mental state to do so Inventory Assets Strengths: concerned family members, pleasant on approach Needs: stable housing, improved compliance to medication and treatment plan. Risk Factors Assessment Male: No : No Do You Have Access To A Gun?: No Health Problems: No Mental Health Diagnoses: Yes Substance Use Disorders: No Previous Attempt: Yes (Per family, patient denies) Previous Psychiatric Hospitalization: Yes Hopelessness: No Smoker: Yes Protective Factors Assessment : No Responsible for Young Children: No Employed: No Stable Relationships: No Supportive Family: No Good Rapport with Provider: No Interval History Identifying Information ANDREW CYR is a 63-year-old F who currently is homeless in [place] area, has a history of schizoaffective disorder, bipolar type, and was admitted on 09/03/19 05:42 on a 302 involuntary commitment for psychosis, suicidal ideation, inability to provide for basic needs, and medication noncompliance. . Chief Complaint "I am fine, thank you". Review of Systems Sleep Information Total Hours of Sleep: 5 Sleep Comments: she remains to fall asleep with her overbed light on which is tuned off by staff. a smaller light is turned on over the other bed. Meal Information Percent Meal Consumed - Breakfast: 100 Percent Meal Consumed - Lunch: 100 Percent Meal Consumed - Dinner: 100 Nutrition Comment: documented from the pt. meal record Subjective Subjective Patient was seen & assessed and interval progress reviewed with nursing and social work. Patient is noted to superficially engage and remains in her room and comes out to eat, but minimal interaction with peers not involved in unit programming. She is sleeping and eating. Met patient today with telehealth refrigerating technician in her room. She states she is fine, denies physical concerns, slept well, ate well, and denies Side effects to medications She has no questions for this provider today. She states her mood is "good" and she is not concerned about anything on the unit. SHe denied concerns about suicide nor thoughts to harm others "Oh no!" said with a pleasant social smile. SHe denies AVH, or paranoia. Physical Exam Psychiatric Orientation: alert, oriented to person and cooperative (as I left the conversation very superficial) Apperance: appropriately dressed Eye Contact: good eye contact Motor Behavior: steady gait and station and no abnormal motor movements; no psychomotor agitation, no psychomotor retardation, n EPS and n akathisia Speech: normal rate/rhythm/volume of speech Affect: euthymic affect Mood is "fine...good" Thoughts today are superficial and fluid. SHe notes she is "fine...good" and is pleasant and cooperative. She did not reveal to this provider her delusions regarding her home, nor did she share any content of her thoughts beyond the questions asked. Suicidal Thoughts: denies suicidal thoughts Homicidal Thoughts: denies homicidal thoughts Hallucinations: no auditory hallucinations and no visual hallucinations Cognition: attention grossly intact memory not fomrally tested, not enough spontaneous content to assess average by vocabulary Insight: + severely impaired insight Judgement: + severely impaired judgement Vital Signs (Past 24 Hours) Last Vital Signs Temp 36.4 C L 10/01/19 06:26 Pulse 63 10/01/19 06:27 Resp 16 10/01/19 06:26 BP 134/83 10/01/19 06:27 Pulse Ox 95 09/03/19 05:47 Results & Data ([facility]) Current Inpatient Medications Current Inpatient Medications: Current Inpatient Medications Acetaminophen (Tylenol) 650 mg PO Q4H PRN PRN Reason: Headache or Minor Fever Stop: 10/03/19 05:41 Last Admin: 09/24/19 10:34 Dose: 650 mg Documented by: Al Hydrox/Mg Hydrox/Simethicone (Maalox) 30 ml PO Q4H PRN PRN Reason: GI Upset Stop: 10/03/19 05:41 Bismuth Subsalicylate (Kaopectate) 15 ml PO PRN PRN PRN Reason: Loose Stool Stop: 10/03/19 05:41 Clotrimazole (Lotrimin 1%) 1 appln EXT BID [facility] Stop: 10/24/19 20:59 Last Admin: 10/01/19 07:59 Dose: 1 appln Documented by: Docusate Sodium (Colace) 100 mg PO BID [facility] Stop: 10/05/19 08:59 Last Admin: 10/01/19 07:58 Dose: 100 mg Documented by: Hydroxyzine HCl (Vistaril) 50 mg PO HSZ PRN PRN Reason: Insomnia Stop: 10/03/19 05:41 Hydroxyzine HCl (Vistaril) 25 mg PO Q4H PRN PRN Reason: Anxiety Stop: 10/03/19 05:41 Levothyroxine Sodium (Synthroid) 75 mcg PO DAILYBB [facility] Stop: 10/03/19 07:59 Last Admin: 10/01/19 07:58 Dose: 75 mcg Documented by: Pillager Carbonate (Eskalith) 450 mg PO BID [facility] Stop: 10/03/19 20:59 Last Admin: 10/01/19 07:58 Dose: 450 mg Documented by: Magnesium Hydroxide (Milk Of Magnesia) 30 ml PO DAILY PRN PRN Reason: Constipation Stop: 10/03/19 05:41 Miscellaneous (Remove Nicoderm Patch) 1 ea N/A DAILY@[id number] [facility] Stop: 10/04/19 08:58 Last Admin: 10/01/19 08:01 Dose: 1 ea Documented by: Nicotine (Nicoderm Cq) 7 mg TD QAM [facility] Stop: 10/03/19 16:29 Last Admin: 10/01/19 07:58 Dose: 7 mg Documented by: Simvastatin (Zocor) 10 mg PO HS CLARISA Stop: 10/03/19 21:59 Last Admin: 09/30/19 20:53 Dose: 10 mg Documented by: Sodium Chloride ([place] Nasal) 1 - 2 sprays NA PRN PRN PRN Reason: Nasal Dryness/Congestion Stop: 10/03/19 05:41 Mental Health & Subst Abuse Tx Psychiatrist Name of Psychiatrist: Jackelin Psychiatrist's Date of Appointment with Psychiatrist: 09/14/19 Time of Appointment with Psychiatrist: 11:00 a.m. Psychiatric Appointment Comment: [id number] [place] [address] Therapist Name of Therapist: None Architectural Manager Name of Architectural Manager: [employer] - Lizzy Pandey Phone Number for Architectural Manager: [phone] Post Discharge Appointments Primary Care Physician Name Of Family Doctor: [facility] Primary Care Provider Appointment Comment: [id number] [facility], [address], [place] [address]
[2019-10-01] MEDS: SIMVASTATIN 10 MG TAB PO SCH (20:56)
[2019-10-02] MEDS: DOCUSATE SODIUM 100 MG CAP PO SCH ×2 (08:36→20:49)
[2019-10-02] MEDS: LITHIUM CARBONATE 450 MG TABCR PO SCH ×2 (08:36→20:49)
[2019-10-02] MEDS: LEVOTHYROXINE SODIUM 75 MCG TABLET PO SCH (08:36)
[2019-10-02] MEDS: NICOTINE 7 MG/24 HR TDSY TD SCH (08:37)
[2019-10-02] MEDS: CLOTRIMAZOLE 1% CR 15 GM TUBE EXT SCH ×2 (08:37→20:48)
--- NOTE | 2019-10-02 09:13 | Psychiatric Progress Note ---
Date of Service October 02, 2019 Impression / Recommendations Impression 63-year-old Hungarian female with schizoaffective disorder bipolar type admitted on a 302 commitment 4 days after being discharged from this unit on 08/29 after a 27-day hospitalization. She was discharged on a 304 IOC, and return to the ER later that same day, after police were called due to bizarre behavior at a local grocery store, but was again discharged. Readmitted with psychotic symptoms including paranoia, delusions of persecution (that family and people at the half-way were trying to poison/harm her), refusing to eat with hypokalemia, homelessness, delusions that she owns a home, and inability to provide for her own basic needs. Additionally, family members who petitioned reported she made suicidal statements and walked into traffic, and reported delusions that her son had stabbed her in her intestines were hanging out. They also reported she had been noncompliant with oral psychotropic medications, and although her lead case manager assisted her to fill these on the day of discharge, she did not bring them into the hospital with her and says she does not know where they are. She is repeatedly demonstrated complete inability to provide for her own basic needs outside of the hospital, including health, welfare, half-way, food, and safety. Inpatient treatment is medically necessary due to the severity of her symptoms and risk for suicide if discharged. She is now on a 304 involuntary commitment, and we are recommending long-[facility] inpatient [facility]. Referral packet was sent for review on 09/07/2019, we still have not received any information regarding acceptance despite several attempts at communication with the facility. (1) Schizoaffective disorder, bipolar type: 09/03/19 -The patient has been admitted to the locked, secured behavioral health unit and has been placed in special observation room. She is also being monitored with close observations and every 15-minute direct observation. When more stable she will be actively encouraged to participate in individual, group, and activity therapies. We will also attempt to involve the family if the patient permits us to and if they agree. - Resuming medications as was rx'd at time of discharge on 08/29 including po Invega, lithium, and Sustenna. 09/03 -continue current medications, patient is taking them. -File for 306 conversion hearing to be held 09/06/2019. She will likely need referral to the community health hospital due to the need for long-term inpatient treatment. -Reviewed FLP and FG from recent hospitalization 08/07/2019: Cholesterol 221, glucose 109, other values within normal limits. -Attempt to involve family is able; son-in-law Poli is petitioner and was involved in hospitalization so we will ask staff to contact him for collateral information and to determine the family's ability to assist with discharge planning and housing. She has very limited supports in the community and if they are unable to assist her with housing and care, she will likely require long-term hospitalization. -Continue private room for psychosis. 09/04 - Continue current medication regimen - patient has been compliant with medications in this structured environment - 306 conversion hearing scheduled for 09/05 - Meeting with lead case manager today to discuss treatment options and continue attempts to build rapport - Referral to [facility] is being recommended at this time has patient has repeatedly demonstrated an inability to care for self and provide for basic needs without the support of a structured psychiatric setting. - EKG (WNL). PPD was refused by patient - CXR ordered 09/05 -306 hearing held and patient converted to a 304 involuntary commitment. -Referred to [facility] for long-term inpatient treatment, as patient is severely ill and unable to provide for her own basic needs as a result of her mental illness, and treatment for 27 days on our acute unit was insufficient for successful transition to the community. She was at [facility] for 4 months within the past year, and did respond to treatment there, so [facility] for [facility]-term treatment of SPMI. -EKG and chest x-ray completed for community health hospital referral. 09/06 - Continue current medication regimen - Referral to [facility] is being prepared, approval was reportedly received from the county - Ongoing attempt to build rapport with psychiatric lead case manager 09/07 - 09/09 - Continue current medication regimen - Referral sent to [facility] on 09/07/2019 for recommended long- term psychiatric hospitalization based on chronic medication/treatment non- compliance and repeated demonstration of inability to care for self outside of a structured psychiatric setting. - Pt was informed of [facility] referral today during encounter 09/10 - Continue current medication regimen - [facility] referral sent on 09/07/2019 - requesting updates regarding when case is anticipated to be reviewed and ensure information was received - Pt continues to demand to leave, unable to appreciated the severity of her condition. Ongoing concern related to patient's repeated demonstration of inability to care for self outside of a structured psychiatric setting. 09/11 - Continue current medication regimen - Awaiting acceptance at [facility]. Ongoing concern related to patient's repeated demonstration of inability to care for self outside of a structured psychiatric setting. 09/12 - 09/14 - Pt due for next injection of Invega Sustenna 234mg IM on 09/16. Oral supplementation was continued from last hospitalization due to concern for ongoing instability with regard to psychotic symptoms. In preparation for first maintenance dose, will reduce oral supplementation to 3mg qAM and discontinue oral paliperidone on 09/16. Continue lithium 450mg BID unchanged. - Awaiting replay for [facility] regarding referral. Ongoing concern related to patient's repeated demonstration of inability to care for self outside of a structured psychiatric setting. Pt has consistently not been agreeable to diversion planning as a result of fixed delusional beliefs that she has family support, that she has a house to live in, and that she has a lot of money - none of these statements confirmed to be true. 09/15 -Continue treatment plan as previously prescribed 09/16 -now fully converted to invega sustenna. 09/17 - Continue current treatment plan 09/18 - 09/20 - Continue current treatment plan - Confirmed that information from patient's hospitalization at our facility was received by [facility], but case has not yet been reviewed. Still awaiting determination of acceptance status. 09/21 - continue current meds and tx plan. Reinstitute medically necessary private room as hx of aggression, labile mood, poor ability to keep contact precautions with COVID, hx homelessness higher risk category 09/22 - 09/23 - continue current meds and tx plan. 09/24 continue current meds and tx plan. MNPR for now as less paranoid and more visible on unit. 09/25 - Continue current treatment plan - patient remains irritable, paranoid, and delusional - Continue MNPR for paranoia and irritability 09/26 - Continue current treatment plan - Still awaiting response from [facility], 3 weeks after initially referral packet was sent - Pt did reportedly complete her Medical Assistance application. Consider repeat meeting with the county to discuss options for diversion planning; though these remain very limited - As review of patient's treatment plan has historically been very upsetting to the patient, discharge plans have not changed, and the therapeutic value of the review is limited - discussed with patient who did agree to review her treatment plan once a week unless there are changes in the interim. This was confirmed by multiple parties and can be reviewed with greater frequency at which time patient better tolerates the conversation and the therapeutic value is increased. 09/27 - 10/01 - Continue current treatment plan - Still awaiting response from [facility] - Pt is unwilling to consider alternative housing options - she maintains the delusion that she has a penthouse in [place] which has been confirmed to be untrue. (2) Noncompliance with medication regimen: 09/02 - Unable to clarify if pt has been taking her medications regularly in the days since discharge. She at first indicated that she was not then indicated the medications arein a bag of hers but did not indicate actually taking them. The patient also claims to not recall the names of any of her medications and reports that she does not have the conditions for which her known medications are clearly intended. Possible cognitive impairments. might be impacting medication compliance. language impairments with pt not speaking Qatari impacting compliance concerns. -The patient's underlying psychiatric condition will be actively treated. It is hoped that with treatment we will be able to improve medication compliance and also address aspects that impact compliance and improve this with appropriate interventions. CANTOR form of Invega to be continued at this time, next dose not due for another 2 weeks. Pt took meds this morning that were offered to her but given her extensive non compliance prior to, during and seeming after recent admission and lack of insight to her dx and presentation and indicating that recent hospitalization was quite helpful for her and her indicating wanting to continue her medications as was rx' at end of recent [facility] admission and were instructed to take at that discharge. I am in favor of medication over objection if pt objects to taking her medication during the course of this admission or if it is determined that pt is checking or not actually taking her medications. (3) Homeless: 09/03/19 -In the past, the patient has lived with family members. However, this is clearly not an option at the present time. The context is that the patient reportedly was in nursing home for approximately a year because of her making terroristic threats against the family. While it does seem clear that the family wants to help protect her, they are unable to safely provide half-way. Given the patient's history of neglect of self-care, medication nonadherence, and possible cognitive deficits we are going to investigate structured residential programs as part of our discharge planning. 09/03 -patient has consistently refused assistance with housing, insisting that she has a house in [place], although has not been able to provide an address and her family states this is not true. 09/06 - Patient's grandson called unit yesterday to provide additional information, stating the patient has been homeless for quite some time and there is no valid address for the patient 09/29 pt remains delusional about having a home and is agitated if this is approached or challenged in anyway 09/30 did not discuss further today as this is a point of delusion and been shown to be refractory to challenging in anyway (4) Involuntary commitment: 09/03 -patient on a 304 IOC, readmitted on a 302. We will file for a 306 conversion hearing. 09/04 - 306 hearing scheduled for 09/05; anticipate referral to [facility]. 09/05 -306 conversion granted, now here on a 304 involuntary commitment. 09/07 - Referral packet sent to [facility] on 09/06 (5) Nicotine abuse: 09/02 - Nicotine Patch 7mg topical daily resumed, and smoking cessation to be done when pt is in more apposite mental state to do so Inventory Assets Strengths: concerned family members, pleasant on approach Needs: stable housing, improved compliance to medication and treatment plan. Risk Factors Assessment Male: No : No Do You Have Access To A Gun?: No Health Problems: No Mental Health Diagnoses: Yes Substance Use Disorders: No Previous Attempt: Yes (Per family, patient denies) Previous Psychiatric Hospitalization: Yes Hopelessness: No Smoker: Yes Protective Factors Assessment : No Responsible for Young Children: No Employed: No Stable Relationships: No Supportive Family: No Good Rapport with Provider: No Interval History Identifying Information ANDREW CYR is a 63-year-old F who currently is homeless in [place] area, has a history of schizoaffective disorder, bipolar type, and was admitted on 09/03/19 05:42 on a 302 involuntary commitment for psychosis, suicidal ideation, inability to provide for basic needs, and medication noncompliance. Chief Complaint "Is this the same thing as yesterday? Because I don't want to talk." Review of Systems Notes Constitutional: denied Cardiovascular: denied Respiratory: denied Gastrointestinal: denied Neurological: denied Psychiatric: denies symptoms other than stated above Total of at least 10 systems reviewed, pertinent positives as above and in HPI. Sleep Information Total Hours of Sleep: 5.5 Sleep Comments: she remains to fall asleep with her overbed light on which is tuned off by staff. a smaller light is turned on over the other bed. Meal Information Percent Meal Consumed - Breakfast: 100 Percent Meal Consumed - Lunch: 100 Percent Meal Consumed - Dinner: 100 Nutrition Comment: documented from the pt. meal record Subjective Subjective Patient was seen & assessed and interval progress reviewed with treatment team. Staff report the patient continues to be intermittently irritable and demanding discharge, but otherwise presents as superficially pleasant. Pt was seen today to assess progress since admission. Canadian-Qatari conversation was conducted with assistance from [facility] interpretive service - Radhames #[id number]. Pt appeared irritable initially as seismic interpreter was completing introductions, then she inquires "Is this the same thing as yesterday? Because I don't want to talk." Pt states that she is only interested in talking to a doctor. This PA-C explained that she is a medical provider working closely with the psychiatrist and is scheduled to meet with the patient today. Pt then states "I feel fine - I want a psychiatrist to discharge me. I want to leave." Pt the stood up and began to walk away from this provider, stating "I don't want to speak anymore." Pt continued to become increasingly irritable as she walked from her room into the bathroom. This provider continued conversation, only to encourage patient to reach out to staff with any needs throughout the day. Pt then stated "I need a real psychiatrist, I don't need an traction power engineer or anyone else pretending to be a psychiatrist. I don't want to speak anymore." Physical Exam Psychiatric Orientation: alert and + guarded (uncooperative) Apperance: appropriately dressed (casually, in leggings and t-shirt) and appropriately groomed (recently showered) Eye Contact: + fair eye contact Motor Behavior: no abnormal motor movements Speech: normal rate/rhythm/volume of speech (irritable tone) Affect: + irritable affect and + constricted affect; + mood not congruent with affect Mood: no depressed mood ("I am fine") Thought Process: + concrete thought process Insight: + severely impaired insight Judgement: + severely impaired judgement Vital Signs (Past 24 Hours) Last Vital Signs Temp 36.9 C 10/02/19 06:39 Pulse 79 10/02/19 06:40 Resp 18 10/02/19 06:39 BP 128/77 10/02/19 06:40 Pulse Ox 95 09/03/19 05:47 Results & Data ([facility]) Current Inpatient Medications Current Inpatient Medications: Current Inpatient Medications Acetaminophen (Tylenol) 650 mg PO Q4H PRN PRN Reason: Headache or Minor Fever Stop: 10/03/19 05:41 Last Admin: 09/24/19 10:34 Dose: 650 mg Documented by: Al Hydrox/Mg Hydrox/Simethicone (Maalox) 30 ml PO Q4H PRN PRN Reason: GI Upset Stop: 10/03/19 05:41 Bismuth Subsalicylate (Kaopectate) 15 ml PO PRN PRN PRN Reason: Loose Stool Stop: 10/03/19 05:41 Clotrimazole (Lotrimin 1%) 1 appln EXT BID [facility] Stop: 10/24/19 20:59 Last Admin: 10/02/19 08:37 Dose: 1 appln Documented by: Docusate Sodium (Colace) 100 mg PO BID [facility] Stop: 10/05/19 08:59 Last Admin: 10/02/19 08:36 Dose: 100 mg Documented by: Hydroxyzine HCl (Vistaril) 50 mg PO HSZ PRN PRN Reason: Insomnia Stop: 10/03/19 05:41 Hydroxyzine HCl (Vistaril) 25 mg PO Q4H PRN PRN Reason: Anxiety Stop: 10/03/19 05:41 Levothyroxine Sodium (Synthroid) 75 mcg PO DAILYBB [facility] Stop: 10/03/19 07:59 Last Admin: 10/02/19 08:36 Dose: 75 mcg Documented by: [place] Carbonate (Eskalith) 450 mg PO BID [facility] Stop: 10/03/19 20:59 Last Admin: 10/02/19 08:36 Dose: 450 mg Documented by: Magnesium Hydroxide (Milk Of Magnesia) 30 ml PO DAILY PRN PRN Reason: Constipation Stop: 10/03/19 05:41 Miscellaneous (Remove Nicoderm Patch) 1 ea N/A DAILY@[id number] [facility] Stop: 10/04/19 08:58 Last Admin: 10/02/19 09:09 Dose: 1 ea Documented by: Nicotine (Nicoderm Cq) 7 mg TD QAM CLARISA Stop: 10/03/19 16:29 Last Admin: 10/02/19 08:37 Dose: 7 mg Documented by: Simvastatin (Zocor) 10 mg PO HS CLARISA Stop: 10/03/19 21:59 Last Admin: 10/01/19 20:56 Dose: 10 mg Documented by: Sodium Chloride ([place] Nasal) 1 - 2 sprays NA PRN PRN PRN Reason: Nasal Dryness/Congestion Stop: 10/03/19 05:41 Mental Health & Subst Abuse Tx Psychiatrist Name of Psychiatrist: Jackelin Psychiatrist's Date of Appointment with Psychiatrist: 09/14/19 Time of Appointment with Psychiatrist: 11:00 a.m. Psychiatric Appointment Comment: [id number] [place] [address] Therapist Name of Therapist: None Tongue Binder Name of Tongue Binder: [facility] Lizzy Pandey Phone Number for Tongue Binder: [phone] Post Discharge Appointments Primary Care Physician Name Of Family Doctor: [facility] Primary Care Provider Appointment Comment: [address], [address], [place] [address]
[2019-10-02] MEDS: SIMVASTATIN 10 MG TAB PO SCH (20:49)
[2019-10-03] MEDS: DOCUSATE SODIUM 100 MG CAP PO SCH (08:31)
[2019-10-03] MEDS: NICOTINE 7 MG/24 HR TDSY TD SCH (08:31)
[2019-10-03] MEDS: CLOTRIMAZOLE 1% CR 15 GM TUBE EXT SCH ×2 (08:31→20:38)
[2019-10-03] MEDS: LITHIUM CARBONATE 450 MG TABCR PO SCH ×3 (08:31→20:39)
[2019-10-03] MEDS: LEVOTHYROXINE SODIUM 75 MCG TABLET PO SCH (08:31)
[2019-10-03] MEDS ORDERED: ALUMINUM/MAGNESIUM SUSP 30 ML UDC PO PRN (08:47)
[2019-10-03] MEDS ORDERED: BISMUTH SUBSALICYLATE PER ML OMNICELL CHARGE PO PRN (08:47)
[2019-10-03] MEDS ORDERED: ACETAMINOPHEN 325 MG TAB PO PRN (08:47)
[2019-10-03] MEDS ORDERED: MAGNESIUM HYDROXIDE SUSP 30 ML UDC PO PRN (08:47)
[2019-10-03] MEDS ORDERED: SODIUM CHLORIDE 0.65% NA SOLN 45 ML (OCEAN) PRN (08:47)
--- NOTE | 2019-10-03 10:21 | Psychiatric Progress Note ---
Date of Service October 03, 2019 Impression / Recommendations Impression 63-year-old Latvian female with schizoaffective disorder bipolar type admitted on a 302 commitment 4 days after being discharged from this unit on 08/29 after a 27-day hospitalization. She was discharged on a 304 IOC, and return to the ER later that same day, after police were called due to bizarre behavior at a local grocery store, but was again discharged. Readmitted with psychotic symptoms including paranoia, delusions of persecution (that family and people at the residential were trying to poison/harm her), refusing to eat with hypokalemia, homelessness, delusions that she owns a home, and inability to provide for her own basic needs. Additionally, family members who petitioned reported she made suicidal statements and walked into traffic, and reported delusions that her son had stabbed her in her intestines were hanging out. They also reported she had been noncompliant with oral psychotropic medications, and although her bottle caser assisted her to fill these on the day of discharge, she did not bring them into the hospital with her and says she does not know where they are. She is repeatedly demonstrated complete inability to provide for her own basic needs outside of the hospital, including health, welfare, residential, food, and safety. Inpatient treatment is medically necessary due to the severity of her symptoms and risk for suicide if discharged. She is now on a 304 involuntary commitment, and we are recommending long-term inpatient treatment at the [facility]. Referral packet was sent for review on 09/07/2019, we still have not received any information regarding acceptance despite several attempts at communication with the facility. (1) Schizoaffective disorder, bipolar type: 09/03/19 -The patient has been admitted to the locked, secured behavioral health unit and has been placed in special observation room. She is also being monitored with close observations and every 15-minute direct observation. When more stable she will be actively encouraged to participate in individual, group, and activity therapies. We will also attempt to involve the family if the patient permits us to and if they agree. - Resuming medications as was rx'd at time of discharge on 08/29 including po Invega, lithium, and Sustenna. 09/03 -continue current medications, patient is taking them. -File for 306 conversion hearing to be held 09/06/2019. She will likely need referral to the [facility] due to the need for long-term inpatient treatment. -Reviewed FLP and FG from recent hospitalization 08/07/2019: Cholesterol 221, glucose 109, other values within normal limits. -Attempt to involve family is able; son-in-law Poli is petitioner and was involved in hospitalization so we will ask staff to contact him for collateral information and to determine the family's ability to assist with discharge planning and housing. She has very limited supports in the community and if they are unable to assist her with housing and care, she will likely require long-term hospitalization. -Continue private room for psychosis. 09/04 - Continue current medication regimen - patient has been compliant with medications in this structured environment - 306 conversion hearing scheduled for 09/05 - Meeting with bottle caser today to discuss treatment options and continue attempts to build rapport - Referral to [facility] is being recommended at this time has patient has repeatedly demonstrated an inability to care for self and provide for basic needs without the support of a structured psychiatric setting. - EKG (WNL). PPD was refused by patient - CXR ordered 09/05 -306 hearing held and patient converted to a 304 involuntary commitment. -Referred to [facility] for long-term inpatient treatment, as patient is severely ill and unable to provide for her own basic needs as a result of her mental illness, and treatment for 27 days on our acute unit was insufficient for successful transition to the community. She was at [facility] for 4 months within the past year, and did respond to treatment there, so returned to the [facility] as recommended for long-term treatment of SPMI. -EKG and chest x-ray completed for [facility] referral. 09/06 - Continue current medication regimen - Referral to [facility] is being prepared, approval was reportedly received from the county - Ongoing attempt to build rapport with psychiatric bottle caser 09/07 - 09/09 - Continue current medication regimen - Referral sent to [facility] on 09/07/2019 for recommended long- term psychiatric hospitalization based on chronic medication/treatment non- compliance and repeated demonstration of inability to care for self outside of a structured psychiatric setting. - Pt was informed of [facility] referral today during encounter 09/10 - Continue current medication regimen - [place] referral sent on 09/07/2019 - requesting updates regarding when case is anticipated to be reviewed and ensure information was received - Pt continues to demand to leave, unable to appreciated the severity of her condition. Ongoing concern related to patient's repeated demonstration of inability to care for self outside of a structured psychiatric setting. 09/11 - Continue current medication regimen - Awaiting acceptance at [facility]. Ongoing concern related to patient's repeated demonstration of inability to care for self outside of a structured psychiatric setting. 09/12 - 09/14 - Pt due for next injection of Invega Sustenna 234mg IM on 09/16. Oral supplementation was continued from last hospitalization due to concern for ongoing instability with regard to psychotic symptoms. In preparation for first maintenance dose, will reduce oral supplementation to 3mg qAM and discontinue oral paliperidone on 09/16. Continue lithium 450mg BID unchanged. - Awaiting replay for [facility] regarding referral. Ongoing concern related to patient's repeated demonstration of inability to care for self outside of a structured psychiatric setting. Pt has consistently not been agreeable to diversion planning as a result of fixed delusional beliefs that she has family support, that she has a house to live in, and that she has a lot of money - none of these statements confirmed to be true. 09/15 -Continue treatment plan as previously prescribed 09/16 -now fully converted to invega sustenna. 09/17 - Continue current treatment plan 09/18 - 09/20 - Continue current treatment plan - Confirmed that information from patient's hospitalization at our facility was received by [facility], but case has not yet been reviewed. Still awaiting determination of acceptance status. 09/21 - continue current meds and tx plan. Reinstitute medically necessary private room as hx of aggression, labile mood, poor ability to keep contact precautions with COVID, hx homelessness higher risk category 09/22 - 09/23 - continue current meds and tx plan. 09/24 continue current meds and tx plan. MNPR for now as less paranoid and more visible on unit. 09/25 - Continue current treatment plan - patient remains irritable, paranoid, and delusional - Continue MNPR for paranoia and irritability 09/26 - Continue current treatment plan - Still awaiting response from [facility], 3 weeks after initially referral packet was sent - Pt did reportedly complete her Medical Assistance application. Consider repeat meeting with the county to discuss options for diversion planning; though these remain very limited - As review of patient's treatment plan has historically been very upsetting to the patient, discharge plans have not changed, and the therapeutic value of the review is limited - discussed with patient who did agree to review her treatment plan once a week unless there are changes in the interim. This was confirmed by multiple parties and can be reviewed with greater frequency at which time patient better tolerates the conversation and the therapeutic value is increased. 09/27 - 10/01 - Continue current treatment plan - Still awaiting response from [facility] - Pt is unwilling to consider alternative housing options - she maintains the delusion that she has a penthouse in [place] which has been confirmed to be untrue. 10/02 - Continue as above - medications renewed - Still awaiting response from [facility] - Pt maintains fixed delusions that are interfering significantly with patient's ability to adequately care for herself outside of a structured/supervised setting (2) Noncompliance with medication regimen: 09/02 - Unable to clarify if pt has been taking her medications regularly in the days since discharge. She at first indicated that she was not then indicated the medications arein a bag of hers but did not indicate actually taking them. The patient also claims to not recall the names of any of her medications and reports that she does not have the conditions for which her known medications are clearly intended. Possible cognitive impairments. might be impacting medication compliance. language impairments with pt not speaking [place] impacting compliance concerns. -The patient's underlying psychiatric condition will be actively treated. It is hoped that with treatment we will be able to improve medication compliance and also address aspects that impact compliance and improve this with appropriate interventions. CANTOR form of Invega to be continued at this time, next dose not due for another 2 weeks. Pt took meds this morning that were offered to her but given her extensive non compliance prior to, during and seeming after recent admission and lack of insight to her dx and presentation and indicating that recent hospitalization was quite helpful for her and her indicating wanting to continue her medications as was rx' at end of recent [facility] admission and were instructed to take at that discharge. I am in favor of medication over objection if pt objects to taking her medication during the course of this admission or if it is determined that pt is checking or not actually taking her medications. (3) Homeless: 09/03/19 -In the past, the patient has lived with family members. However, this is clearly not an option at the present time. The context is that the patient reportedly was in long term for approximately a year because of her making terroristic threats against the family. While it does seem clear that the family wants to help protect her, they are unable to safely provide residential. Given the patient's history of neglect of self-care, medication nonadherence, and possible cognitive deficits we are going to investigate structured r esidential programs as part of our discharge planning. 09/03 -patient has consistently refused assistance with housing, insisting that she has a house in [place], although has not been able to provide an address and her family states this is not true. 09/06 - Patient's grandson called unit yesterday to provide additional information, stating the patient has been homeless for quite some time and there is no valid address for the patient 09/29 pt remains delusional about having a home and is agitated if this is approached or challenged in anyway 09/30 did not discuss further today as this is a point of delusion and been shown to be refractory to challenging in anyway (4) Involuntary commitment: 09/03 -patient on a 304 IOC, readmitted on a 302. We will file for a 306 conversion hearing. 09/04 - 306 hearing scheduled for 09/05; anticipate referral to [facility]. 09/05 -306 conversion granted, now here on a 304 involuntary commitment. 09/07 - Referral packet sent to [facility] on 09/06 (5) Nicotine abuse: 09/02 - Nicotine Patch 7mg topical daily resumed, and smoking cessation to be done when pt is in more apposite mental state to do so Inventory Assets Strengths: concerned family members, pleasant on approach Needs: stable housing, improved compliance to medication and treatment plan. Risk Factors Assessment Male: No : No Do You Have Access To A Gun?: No Health Problems: No Mental Health Diagnoses: Yes Substance Use Disorders: No Previous Attempt: Yes (Per family, patient denies) Previous Psychiatric Hospitalization: Yes Hopelessness: No Smoker: Yes Protective Factors Assessment : No Responsible for Young Children: No Employed: No Stable Relationships: No Supportive Family: No Good Rapport with Provider: No Interval History Identifying Information ANDREW CYR is a 63-year-old F who currently is homeless in [facility], has a history of schizoaffective disorder, bipolar type, and was admitted on 09/03/19 05:42 on a 302 involuntary commitment for psychosis, suicidal ideation, inability to provide for basic needs, and medication noncompliance. Chief Complaint "I'm well. Thank you." Review of Systems Notes Constitutional: denied Cardiovascular: denied Respiratory: denied Gastrointestinal: denied Neurological: denied Psychiatric: denies symptoms other than stated above Total of at least 10 systems reviewed, pertinent positives as above and in HPI. Sleep Information Total Hours of Sleep: 6 Sleep Comments: . Meal Information Percent Meal Consumed - Breakfast: 100 Percent Meal Consumed - Lunch: 100 Percent Meal Consumed - Dinner: 100 Nutrition Comment: documented from the pt. meal record Subjective Subjective Patient was seen & assessed and interval progress reviewed with nursing and social work. Staff report the patient is maintaining adequate behavioral control in this structured and supervised setting. Still no updated communicated from the [facility] regarding admission decision. Pt was seen today to assess progress since admission. [place] conversation was conducted with assistance from [employer] [facility] interpretive service Petra #[id number]. Pt states she is "well, thank you." Pt denies any new concerns she would like to discuss today, or questions at this time. Pt states she is keeping busy by watching "television." Pt denies need for any additional resources/activities to be provided to her at this time. Pt was superficially pleasant during enc ounter and denied any additional needs or concerns at present. Physical Exam Psychiatric Orientation: alert and cooperative (superficially ) Apperance: appropriately dressed (casually, in leggings and t-shirt), + disheveled (appearing somewhat unkempt) and appeared stated age Eye Contact: + fair eye contact Motor Behavior: steady gait and station and no abnormal motor movements Speech: normal rate/rhythm/volume of speech Affect: + blunted affect Mood: no depressed mood ("Well, thank you") Thought Process: goal directed thought process and + concrete thought process Thought Content: + delusions (ongoing fixed delusions, but no preoccupation with them during encounter) Cognition: attention grossly intact and language grossly intact Insight: + impaired insight Judgement: + impaired judgement Vital Signs (Past 24 Hours) Last Vital Signs Temp 36.7 C 10/03/19 06:32 Pulse 82 10/03/19 06:34 Resp 18 10/03/19 06:32 BP 148/85 H 10/03/19 06:34 Pulse Ox 95 09/03/19 05:47 Results & Data (U) Current Inpatient Medications Current Inpatient Medications: Current Inpatient Medications Acetaminophen (Tylenol) 650 mg PO Q4H PRN PRN Reason: Headache or Minor Fever Stop: 11/02/19 08:46 Al Hydrox/Mg Hydrox/Simethicone (Maalox) 30 ml PO Q4H PRN PRN Reason: GI Upset Stop: 11/02/19 08:46 Bismuth Subsalicylate (Kaopectate) 15 ml PO PRN PRN PRN Reason: Loose Stool Stop: 11/02/19 08:46 Clotrimazole (Lotrimin 1%) 1 appln EXT BID CLARISA Stop: 10/24/19 20:59 Last Admin: 10/03/19 08:31 Dose: 1 appln Documented by: Hydroxyzine HCl (Vistaril) 50 mg PO HSZ PRN PRN Reason: Insomnia Stop: 11/02/19 08:46 Hydroxyzine HCl (Vistaril) 25 mg PO Q4H PRN PRN Reason: Anxiety Stop: 11/02/19 08:46 Levothyroxine Sodium (Synthroid) 75 mcg PO DAILYBB CLARISA Stop: 11/02/19 07:59 Last Admin: 10/03/19 08:31 Dose: 75 mcg Documented by: [place] Carbonate (Eskalith) 450 mg PO BID CLARISA Stop: 11/02/19 08:59 Last Admin: 10/03/19 09:13 Dose: Not Given Documented by: Magnesium Hydroxide (Milk Of Magnesia) 30 ml PO DAILY PRN PRN Reason: Constipation Stop: 11/02/19 08:46 Simvastatin (Zocor) 10 mg PO HS CLARISA Stop: 11/02/19 21:59 Sodium Chloride ([place] Nasal) 1 - 2 sprays NA PRN PRN PRN Reason: Nasal Dryness/Congestion Stop: 11/02/19 08:46 Mental Health & Subst Abuse Tx Psychiatrist Name of Psychiatrist: Jackelin Psychiatrist's Psychiatric Appointment Comment: [id number] [facility], [place] [address] Therapist Name of Therapist: None Package Collector Name of Package Collector: [facility] - Lizzy Pandey Phone Number for Package Collector: [phone] Post Discharge Appointments Primary Care Physician Name Of Family Doctor: [facility] Primary Care Provider Appointment Comment: [id number] [facility], [address], [place] [address]
[2019-10-03] MEDS: SIMVASTATIN 10 MG TAB PO SCH (20:39)
[2019-10-04] MEDS ORDERED: LEVOTHYROXINE SODIUM 75 MCG TABLET PO SCH (08:00)
[2019-10-04] MEDS: DOCUSATE SODIUM 100 MG CAP PO SCH ×3 (09:03→20:53)
[2019-10-04] MEDS: LEVOTHYROXINE SODIUM 75 MCG TABLET PO SCH (09:04)
[2019-10-04] MEDS: CLOTRIMAZOLE 1% CR 15 GM TUBE EXT SCH ×2 (09:04→20:54)
[2019-10-04] MEDS: LITHIUM CARBONATE 450 MG TABCR PO SCH ×2 (09:04→20:54)
--- NOTE | 2019-10-04 14:22 | Psychiatric Progress Note ---
Date of Service October 04, 2019 Impression / Recommendations Impression 63-year-old [place] female with schizoaffective disorder bipolar type admitted on a 302 commitment 4 days after being discharged from this unit on 08/29 after a 27-day hospitalization. She was discharged on a 304 IOC, and return to the ER later that same day, after police were called due to bizarre behavior at a local grocery store, but was again discharged. Readmitted with psychotic symptoms including paranoia, delusions of persecution (that family and people at the assisted were trying to poison/harm her), refusing to eat with hypokalemia, homelessness, delusions that she owns a home, and inability to provide for her own basic needs. Additionally, family members who petitioned reported she made suicidal statements and walked into traffic, and reported delusions that her son had stabbed her in her intestines were hanging out. They also reported she had been noncompliant with oral psychotropic medications, and although her supportive employment case manager assisted her to fill these on the day of discharge, she did not bring them into the hospital with her and says she does not know where they are. She is repeatedly demonstrated complete inability to provide for her own basic needs outside of the hospital, including health, welfare, assisted, food, and safety. Inpatient treatment is medically necessary due to the severity of her symptoms and risk for suicide if discharged. She is now on a 304 involuntary commitment, and we are recommending long-term inpatient treatment at the [facility]. Referral packet was sent for review on 09/07/2019, we still have not received any information regarding acceptance despite several attempts at communication with the facility. (1) Schizoaffective disorder, bipolar type: 09/03/19 -The patient has been admitted to the locked, secured behavioral health unit and has been placed in special observation room. She is also being monitored with close observations and every 15-minute direct observation. When more stable she will be actively encouraged to participate in individual, group, and activity therapies. We will also attempt to involve the family if the patient permits us to and if they agree. - Resuming medications as was rx'd at time of discharge on 08/29 including po Invega, lithium, and Sustenna. 09/03 -continue current medications, patient is taking them. -File for 306 conversion hearing to be held 09/06/2019. She will likely need referral to the [facility] due to the need for long-term inpatient treatment. -Reviewed FLP and FG from recent hospitalization 08/07/2019: Cholesterol 221, glucose 109, other values within normal limits. -Attempt to involve family is able; son-in-law Poli is petitioner and was involved in hospitalization so we will ask staff to contact him for collateral information and to determine the family's ability to assist with discharge planning and housing. She has very limited supports in the community and if they are unable to assist her with housing and care, she will likely require long-term hospitalization. -Continue private room for psychosis. 09/04 - Continue current medication regimen - patient has been compliant with medications in this structured environment - 306 conversion hearing scheduled for 09/05 - Meeting with supportive employment case manager today to discuss treatment options and continue attempts to build rapport - Referral to [facility] is being recommended at this time has patient has repeatedly demonstrated an inability to care for self and provide for basic needs without the support of a structured psychiatric setting. - EKG (WNL). PPD was refused by patient - CXR ordered 09/05 -306 hearing held and patient converted to a 304 involuntary commitment. -Referred to [facility] for long-term inpatient treatment, as patient is severely ill and unable to provide for her own basic needs as a result of her mental illness, and treatment for 27 days on our acute unit was insufficient for successful transition to the community. She was at [facility] for 4 months within the past year, and did respond to treatment there, so returned to the [facility] as recommended for long-term treatment of SPMI. -EKG and chest x-ray completed for [facility] referral. 09/06 - Continue current medication regimen - Referral to [facility] is being prepared, approval was reportedly received from the county - Ongoing attempt to build rapport with psychiatric supportive employment case manager 09/07 - 09/09 - Continue current medication regimen - Referral sent to [facility] on 09/07/2019 for recommended long- term psychiatric hospitalization based on chronic medication/treatment non- compliance and repeated demonstration of inability to care for self outside of a structured psychiatric setting. - Pt was informed of [facility] referral today during encounter 09/10 - Continue current medication regimen - [facility] referral sent on 09/07/2019 - requesting updates regarding when case is anticipated to be reviewed and ensure information was received - Pt continues to demand to leave, unable to appreciated the severity of her condition. Ongoing concern related to patient's repeated demonstration of inability to care for self outside of a structured psychiatric setting. 09/11 - Continue current medication regimen - Awaiting acceptance at [facility]. Ongoing concern related to patient's repeated demonstration of inability to care for self outside of a structured psychiatric setting. 09/12 - 09/14 - Pt due for next injection of Invega Sustenna 234mg IM on 09/16. Oral supplementation was continued from last hospitalization due to concern for ongoing instability with regard to psychotic symptoms. In preparation for first maintenance dose, will reduce oral supplementation to 3mg qAM and discontinue oral paliperidone on 09/16. Continue lithium 450mg BID unchanged. - Awaiting replay for [facility] regarding referral. Ongoing concern related to patient's repeated demonstration of inability to care for self outside of a structured psychiatric setting. Pt has consistently not been agreeable to diversion planning as a result of fixed delusional beliefs that she has family support, that she has a house to live in, and that she has a lot of money - none of these statements confirmed to be true. 09/15 -Continue treatment plan as previously prescribed 09/16 -now fully converted to invega sustenna. 09/17 - Continue current treatment plan 09/18 - 09/20 - Continue current treatment plan - Confirmed that information from patient's hospitalization at our facility was received by [facility], but case has not yet been reviewed. Still awaiting determination of acceptance status. 09/21 - continue current meds and tx plan. Reinstitute medically necessary private room as hx of aggression, labile mood, poor ability to keep contact precautions with COVID, hx homelessness higher risk category 09/22 - 09/23 - continue current meds and tx plan. 09/24 continue current meds and tx plan. MNPR for now as less paranoid and more visible on unit. 09/25 - Continue current treatment plan - patient remains irritable, paranoid, and delusional - Continue MNPR for paranoia and irritability 09/26 - Continue current treatment plan - Still awaiting response from [facility], 3 weeks after initially referral packet was sent - Pt did reportedly complete her Medical Assistance application. Consider repeat meeting with the county to discuss options for diversion planning; though these remain very limited - As review of patient's treatment plan has historically been very upsetting to the patient, discharge plans have not changed, and the therapeutic value of the review is limited - discussed with patient who did agree to review her treatment plan once a week unless there are changes in the interim. This was confirmed by multiple parties and can be reviewed with greater frequency at which time patient better tolerates the conversation and the therapeutic value is increased. 09/27 - 10/01 - Continue current treatment plan - Still awaiting response from [facility] - Pt is unwilling to consider alternative housing options - she maintains the delusion that she has a penthouse in [place] which has been confirmed to be untrue. 10/02 - Continue as above - medications renewed - Still awaiting response from [facility] - Pt maintains fixed delusions that are interfering significantly with patient's ability to adequately care for herself outside of a structured/supervised setting 10/03 - Continue current medication regimen - 30-day treatment review; treatment plan reviewed with patient who did become angry when length of stay was reviewed. Again became acutely agitated during conversation with provider today - Pt demonstrated very loud yelling, acute agitation, and inability to appropriately communicate frustration. These concerns, in addition to numerous failed attempts at discharge, continue to be evidence as to why patient is not appropriate to be discharged to the community. - Pt is not appropriate to go outside based on episodes of acute agitation and continued delusions which interfere with patient's ability to ensure appropriate behavior (2) Noncompliance with medication regimen: 09/02 - Unable to clarify if pt has been taking her medications regularly in the days since discharge. She at first indicated that she was not then indicated the medications arein a bag of hers but did not indicate actually taking them. The patient also claims to not recall the names of any of her medications and reports that she does not have the conditions for which her known medications are clearly intended. Possible cognitive impairments. might be impacting medication compliance. language impairments with pt not speaking Tamazight impacting compliance concerns. -The patient's underlying psychiatric condition will be actively treated. It is hoped that with treatment we will be able to improve medication compliance and also address aspects that impact compliance and improve this with appropriate interventions. CANTOR form of Invega to be continued at this time, next dose not due for another 2 weeks. Pt took meds this morning that were offered to her but given her extensive non compliance prior to, during and seeming after recent admission and lack of insight to her dx and presentation and indicating that recent hospitalization was quite helpful for her and her indicating wanting to continue her medications as was rx' at end of recent [facility] admission and were instructed to take at that discharge. I am in favor of medication over objection if pt objects to taking her medication during the course of this admission or if it is determined that pt is checking or not actually taking her medications. (3) Homeless: 09/03/19 -In the past, the patient has lived with family members. However, this is clearly not an option at the present time. The context is that the patient reportedly was in long-term for approximately a year because of her making terroristic threats against the family. While it does seem clear that the family wants to help protect her, they are unable to safely provide assisted. Given the patient's history of neglect of self-care, medication nonadherence, and possible cognitive deficits we are going to investigate structured residential programs as part of our discharge planning. 09/03 -patient has consistently refused assistance with housing, insisting that she has a house in [place], although has not been able to provide an address and her family states this is not true. 09/06 - Patient's grandson called unit yesterday to provide additional information, stating the patient has been homeless for quite some time and there is no valid address for the patient 09/29 pt remains delusional about having a home and is agitated if this is approached or challenged in anyway 09/30 did not discuss further today as this is a point of delusion and been shown to be refractory to challenging in anyway (4) Involuntary commitment: 09/03 -patient on a 304 IOC, readmitted on a 302. We will file for a 306 conversion hearing. 09/04 - 306 hearing scheduled for 09/05; anticipate referral to [facility]. 09/05 -306 conversion granted, now here on a 304 involuntary commitment. 09/07 - Referral packet sent to [facility] on 09/06 (5) Nicotine abuse: 09/02 - Nicotine Patch 7mg topical daily resumed, and smoking cessation to be done when pt is in more apposite mental state to do so Inventory Assets Strengths: concerned family members, pleasant on approach Needs: stable housing, improved compliance to medication and treatment plan. Risk Factors Assessment Male: No : No Do You Have Access To A Gun?: No Health Problems: No Mental Health Diagnoses: Yes Substance Use Disorders: No Previous Attempt: Yes (Per family, patient denies) Previous Psychiatric Hospitalization: Yes Hopelessness: No Smoker: Yes Protective Factors Assessment : No Responsible for Young Children: No Employed: No Stable Relationships: No Supportive Family: No Good Rapport with Provider: No Interval History Identifying Information ANDREW CYR is a 63-year-old F who currently is homeless in [place], has a history of schizoaffective disorder, bipolar type, and was admitted on 09/03/19 05:42 on a 302 involuntary commitment for psychosis, suicidal ideation, inability to provide for basic needs, and medication noncompliance. Chief Complaint "So you're a PA? I need to know when I will be discharged." Review of Systems Notes Pt was very uncooperative and agitated, did not verbalize physical complaints but was not able to participate in formal ROS. Sleep Information Total Hours of Sleep: 3.25 Sleep Comments: . Meal Information Percent Meal Consumed - Breakfast: 100 Percent Meal Consumed - Lunch: 100 Percent Meal Consumed - Dinner: 100 Nutrition Comment: documented from the pt. meal record Subjective Subjective Patient was seen & assessed and interval progress reviewed with treatment team. Staff report the patient was more irritable and guarded last evening. Pt's 30- day treatment review and weekly treatment plan review are scheduled for today. It is treatment team's decision that patient is not appropriate to go outside at this time. Pt reportedly became agitated and angry when reviewing her treatment plan this morning, continuing to be upset with estimated length of stay. Pt presented to the nurses' station this afternoon, and stated "Senorita, come. Now." This provider did enter the patient's room with iPad to assess progress since admission. Pt was observed to be tearful and pacing as we waited for the connection with interpretive services. [place] conversation was conducted with assistance from [facility] interpretive service - Ana Rosa #[id number]. Pt inquired "So you're a PA? I need to know when I will be discharged." Pt was informed again of estimated length of stay of 20-40 days, and that discharge plan continues to be for transfer to the [facility]. Pt stated "police from the [facility] have already been here, but they were not allowed to see me." Pt was asked additional questions to determine what is leading her to believe this. Pt's voice became louder and she began to appear more irritable. She inquired again about when she would be discharged. This provider repeated previous statement. Pt interrupted the court interpreter's translation and became acutely agitated and yelled very loudly "Noooooooooooooooooo. Noooooooooooo" and continued to yell loudly in Bruneian (court interpreter unable to provide translation). Pt began pacing the room, waving her arms, making fists, and loudly yelling at this PA-C. This provider stepped to the doorway as patient continued to display this behavior for several minutes. Numerous staff responded to the yelling and waited outside patient's room as well. Pt then walked into her bathroom and continued to speak loudly in Bruneian, and was likely crying. This provider remained in the doorway with the interpretive device, in case patient should return and wish to discuss anything further. After about 2 minutes, the session was ended with the court interpreter and the patient's door was closed. This provider remained outside the patient's door for a period of time, patient could be seen pacing her room and continuing to speak to herself in [place]ian. Physical Exam Psychiatric Orientation: alert and + guarded (agitated, yelling, uncooperative) Eye Contact: good eye contact Motor Behavior: + psychomotor agitation (restless, agitated; making fists, waving hands, pointing fingers) Speech: + loud speech (angry tone; yelling) Affect: + angry affect (yelling, agitated) Mood: + angry mood Thought Process: + perseveration and + concrete thought process Thought Content: + preoccupation and + delusions Pt observed to be pacing halls intermittently today, talking to herself in [place]ian Cognition: language grossly intact Insight: + severely impaired insight Judgement: + severely impaired judgement Vital Signs (Past 24 Hours) Last Vital Signs Temp 36.8 C 10/04/19 06:36 Pulse 82 10/04/19 06:36 Resp 18 10/04/19 06:36 BP 138/84 10/04/19 06:36 Pulse Ox 95 09/03/19 05:47 Results & Data ([facility]) Current Inpatient Medications Current Inpatient Medications: Current Inpatient Medications Acetaminophen (Tylenol) 650 mg PO Q4H PRN PRN Reason: Headache or Minor Fever Stop: 11/02/19 08:46 Al Hydrox/Mg Hydrox/Simethicone (Maalox) 30 ml PO Q4H PRN PRN Reason: GI Upset Stop: 11/02/19 08:46 Bismuth Subsalicylate (Kaopectate) 15 ml PO PRN PRN PRN Reason: Loose Stool Stop: 11/02/19 08:46 Clotrimazole (Lotrimin 1%) 1 appln EXT BID CLARISA Stop: 10/24/19 20:59 Last Admin: 10/04/19 09:04 Dose: 1 appln Documented by: Docusate Sodium (Colace) 100 mg PO BID CLARISA Stop: 11/02/19 20:59 Last Admin: 10/04/19 09:07 Dose: 100 mg Documented by: Hydroxyzine HCl (Vistaril) 50 mg PO HSZ PRN PRN Reason: Insomnia Stop: 11/02/19 08:46 Hydroxyzine HCl (Vistaril) 25 mg PO Q4H PRN PRN Reason: Anxiety Stop: 11/02/19 08:46 Levothyroxine Sodium (Synthroid) 75 mcg PO DAILYBB CLARISA Stop: 11/02/19 07:59 Last Admin: 10/04/19 09:04 Dose: 75 mcg Documented by: Thomas Carbonate (Eskalith) 450 mg PO BID CLARISA Stop: 11/02/19 08:59 Last Admin: 10/04/19 09:04 Dose: 450 mg Documented by: Magnesium Hydroxide (Milk Of Magnesia) 30 ml PO DAILY PRN PRN Reason: Constipation Stop: 11/02/19 08:46 Simvastatin (Zocor) 10 mg PO HS CLARISA Stop: 11/02/19 21:59 Last Admin: 10/03/19 20:39 Dose: 10 mg Documented by: Sodium Chloride (Blanco Nasal) 1 - 2 sprays NA PRN PRN PRN Reason: Nasal Dryness/Congestion Stop: 11/02/19 08:46 Mental Health & Subst Abuse Tx Psychiatrist Name of Psychiatrist: Jackelin Psychiatrist's Date of Appointment with Psychiatrist: 09/14/19 Time of Appointment with Psychiatrist: 11:00 a.m. Psychiatric Appointment Comment: [id number] [facility] [place] [id number] Therapist Name of Therapist: None Electrical Drafter Name of Electrical Drafter: [facility] - Lizzy Pandey Phone Number for Electrical Drafter: [phone] Post Discharge Appointments Primary Care Physician Name Of Family Doctor: [facility] Primary Care Provider Appointment Comment: [phone] [facility], [address], [place] [address]
[2019-10-04] MEDS: SIMVASTATIN 10 MG TAB PO SCH (20:54)
[2019-10-05] MEDS: LITHIUM CARBONATE 450 MG TABCR PO SCH ×2 (08:24→21:50)
[2019-10-05] MEDS: DOCUSATE SODIUM 100 MG CAP PO SCH ×2 (08:24→21:50)
[2019-10-05] MEDS: LEVOTHYROXINE SODIUM 75 MCG TABLET PO SCH (08:24)
[2019-10-05] MEDS: CLOTRIMAZOLE 1% CR 15 GM TUBE EXT SCH ×2 (08:25→21:51)
--- NOTE | 2019-10-05 08:53 | Psychiatric Progress Note ---
Date of Service October 05, 2019 Impression / Recommendations Impression 63-year-old [place] female with schizoaffective disorder bipolar type admitted on a 302 commitment 4 days after being discharged from this unit on 08/29 after a 27-day hospitalization. She was discharged on a 304 IOC, and return to the ER later that same day, after police were called due to bizarre behavior at a local grocery store, but was again discharged. Readmitted with psychotic symptoms including paranoia, delusions of persecution (that family and people at the longterm were trying to poison/harm her), refusing to eat with hypokalemia, homelessness, delusions that she owns a home, and inability to provide for her own basic needs. Additionally, family members who petitioned reported she made suicidal statements and walked into traffic, and reported delusions that her son had stabbed her in her intestines were hanging out. They also reported she had been noncompliant with oral psychotropic medications, and although her telephonic nurse case manager assisted her to fill these on the day of discharge, she did not bring them into the hospital with her and says she does not know where they are. She is repeatedly demonstrated complete inability to provide for her own basic needs outside of the hospital, including health, welfare, longterm, food, and safety. Inpatient treatment is medically necessary due to the severity of her symptoms and risk for suicide if discharged. She is now on a 304 involuntary commitment, and we are recommending long-term inpatient treatment at the [facility]. Referral packet was sent for review on 09/07/2019, we still have not received any information regarding acceptance despite several attempts at communication with the facility. (1) Schizoaffective disorder, bipolar type: 09/03/19 -The patient has been admitted to the locked, secured behavioral health unit and has been placed in special observation room. She is also being monitored with close observations and every 15-minute direct observation. When more stable she will be actively encouraged to participate in individual, group, and activity therapies. We will also attempt to involve the family if the patient permits us to and if they agree. - Resuming medications as was rx'd at time of discharge on 08/29 including po Invega, lithium, and Sustenna. 09/03 -continue current medications, patient is taking them. -File for 306 conversion hearing to be held 09/06/2019. She will likely need referral to the psychiatric hospital hospital due to the need for long-term inpatient treatment. -Reviewed FLP and FG from recent hospitalization 08/07/2019: Cholesterol 221, glucose 109, other values within normal limits. -Attempt to involve family is able; son-in-law Poli is petitioner and was involved in hospitalization so we will ask staff to contact him for collateral information and to determine the family's ability to assist with discharge planning and housing. She has very limited supports in the community and if they are unable to assist her with housing and care, she will likely require long-term hospitalization. -Continue private room for psychosis. 09/04 - Continue current medication regimen - patient has been compliant with medications in this structured environment - 306 conversion hearing scheduled for 09/05 - Meeting with telephonic nurse case manager today to discuss treatment options and continue attempts to build rapport - Referral to [facility] is being recommended at this time has patient has repeatedly demonstrated an inability to care for self and provide for basic needs without the support of a structured psychiatric setting. - EKG (WNL). PPD was refused by patient - CXR ordered 09/05 -306 hearing held and patient converted to a 304 involuntary commitment. -Referred to [facility] for long-term inpatient treatment, as patient is severely ill and unable to provide for her own basic needs as a result of her mental illness, and treatment for 27 days on our acute unit was insufficient for successful transition to the community. She was at [facility] for 4 months within the past year, and did respond to treatment there, so returned to the [facility] as recommended for long-term treatment of SPMI. -EKG and chest x-ray completed for psychiatric hospital hospital referral. 09/06 - Continue current medication regimen - Referral to [facility] is being prepared, approval was reportedly received from the county - Ongoing attempt to build rapport with psychiatric telephonic nurse case manager 09/07 - 09/09 - Continue current medication regimen - Referral sent to [facility] on 09/07/2019 for recommended long- term psychiatric hospitalization based on chronic medication/treatment non- compliance and repeated demonstration of inability to care for self outside of a structured psychiatric setting. - Pt was informed of [facility] referral today during encounter 09/10 - Continue current medication regimen - [facility] referral sent on 09/07/2019 - requesting updates regarding when case is anticipated to be reviewed and ensure information was received - Pt continues to demand to leave, unable to appreciated the severity of her condition. Ongoing concern related to patient's repeated demonstration of inability to care for self outside of a structured psychiatric setting. 09/11 - Continue current medication regimen - Awaiting acceptance at [facility]. Ongoing concern related to patient's repeated demonstration of inability to care for self outside of a structured psychiatric setting. 09/12 - 09/14 - Pt due for next injection of Invega Sustenna 234mg IM on 09/16. Oral supplementation was continued from last hospitalization due to concern for ongoing instability with regard to psychotic symptoms. In preparation for first maintenance dose, will reduce oral supplementation to 3mg qAM and discontinue oral paliperidone on 09/16. Continue lithium 450mg BID unchanged. - Awaiting replay for [facility] regarding referral. Ongoing concern related to patient's repeated demonstration of inability to care for self outside of a structured psychiatric setting. Pt has consistently not been agreeable to diversion planning as a result of fixed delusional beliefs that she has family support, that she has a house to live in, and that she has a lot of money - none of these statements confirmed to be true. 09/15 -Continue treatment plan as previously prescribed 09/16 -now fully converted to invega sustenna. 09/17 - Continue current treatment plan 09/18 - 09/20 - Continue current treatment plan - Confirmed that information from patient's hospitalization at our facility was received by [facility], but case has not yet been reviewed. Still awaiting determination of acceptance status. 09/21 - continue current meds and tx plan. Reinstitute medically necessary private room as hx of aggression, labile mood, poor ability to keep contact precautions with COVID, hx homelessness higher risk category 09/22 - 09/23 - continue current meds and tx plan. 09/24 continue current meds and tx plan. MNPR for now as less paranoid and more visible on unit. 09/25 - Continue current treatment plan - patient remains irritable, paranoid, and delusional - Continue MNPR for paranoia and irritability 09/26 - Continue current treatment plan - Still awaiting response from [facility], 3 weeks after initially referral packet was sent - Pt did reportedly complete her Medical Assistance application. Consider repeat meeting with the county to discuss options for diversion planning; though these remain very limited - As review of patient's treatment plan has historically been very upsetting to the patient, discharge plans have not changed, and the therapeutic value of the review is limited - discussed with patient who did agree to review her treatment plan once a week unless there are changes in the interim. This was confirmed by multiple parties and can be reviewed with greater frequency at which time patient better tolerates the conversation and the therapeutic value is increased. 09/27 - 10/01 - Continue current treatment plan - Still awaiting response from [facility] - Pt is unwilling to consider alternative housing options - she maintains the delusion that she has a penthouse in [place] which has been confirmed to be untrue. 10/02 - Continue as above - medications renewed - Still awaiting response from [facility] - Pt maintains fixed delusions that are interfering significantly with patient's ability to adequately care for herself outside of a structured/supervised setting 10/03 - Continue current medication regimen - 30-day treatment review; treatment plan reviewed with patient who did become angry when length of stay was reviewed. Again became acutely agitated during conversation with provider today - Pt demonstrated very loud yelling, acute agitation, and inability to appropriately communicate frustration. These concerns, in addition to numerous failed attempts at discharge, continue to be evidence as to why patient is not appropriate to be discharged to the community. - Pt is not appropriate to go outside based on episodes of acute agitation and continued delusions which interfere with patient's ability to ensure appropriate behavior 10/04 - Continue current medication regimen - Pt remains inappropriate to go outside - Plan remains for transfer to the [facility] - no response regarding acceptance (2) Noncompliance with medication regimen: 09/02 - Unable to clarify if pt has been taking her medications regularly in the days since discharge. She at first indicated that she was not then indicated the medications arein a bag of hers but did not indicate actually taking them. The patient also claims to not recall the names of any of her medications and reports that she does not have the conditions for which her known medications are clearly intended. Possible cognitive impairments. might be impacting medication compliance. language impairments with pt not speaking [place]an impacting compliance concerns. -The patient's underlying psychiatric condition will be actively treated. It is hoped that with treatment we will be able to improve medication compliance and also address aspects that impact compliance and improve this with appropriate interventions. CANTOR form of Invega to be continued at this time, next dose not due for another 2 weeks. Pt took meds this morning that were offered to her but given her extensive non compliance prior to, during and seeming after recent admission and lack of insight to her dx and presentation and indicating that recent hospitalization was quite helpful for her and her indicating wanting to continue her medications as was rx' at end of recent [facility] admission and were instructed to take at that discharge. I am in favor of medication over objection if pt objects to taking her medication during the course of this admission or if it is determined that pt is checking or not actually taking her medications. (3) Homeless: 09/03/19 -In the past, the patient has lived with family members. However, this is clearly not an option at the present time. The context is that the patient reportedly was in group home for approximately a year because of her making terroristic threats against the family. While it does seem clear that the family wants to help protect her, they are unable to safely provide longterm. Given the patient's history of neglect of self-care, medication nonadherence, and possible cognitive deficits we are going to investigate structured residential programs as part of our discharge planning. 09/03 -patient has consistently refused assistance with housing, insisting that she has a house in [place], although has not been able to provide an address and her family states this is not true. 09/06 - Patient's grandson called unit yesterday to provide additional information, stating the patient has been homeless for quite some time and there is no valid address for the patient 09/29 pt remains delusional about having a home and is agitated if this is approached or challenged in anyway 09/30 did not discuss further today as this is a point of delusion and been shown to be refractory to challenging in anyway (4) Involuntary commitment: 09/03 -patient on a 304 IOC, readmitted on a 302. We will file for a 306 conversion hearing. 09/04 - 306 hearing scheduled for 09/05; anticipate referral to [facility]. 09/05 -306 conversion granted, now here on a 304 involuntary commitment. 09/07 - Referral packet sent to [facility] on 09/06 (5) Nicotine abuse: 09/02 - Nicotine Patch 7mg topical daily resumed, and smoking cessation to be done when pt is in more apposite mental state to do so Inventory Assets Strengths: concerned family members, pleasant on approach Needs: stable housing, improved compliance to medication and treatment plan. Risk Factors Assessment Male: No : No Do You Have Access To A Gun?: No Health Problems: No Mental Health Diagnoses: Yes Substance Use Disorders: No Previous Attempt: Yes (Per family, patient denies) Previous Psychiatric Hospitalization: Yes Hopelessness: No Smoker: Yes Protective Factors Assessment : No Responsible for Young Children: No Employed: No Stable Relationships: No Supportive Family: No Good Rapport with Provider: No Interval History Identifying Information ANDREW CYR is a 63-year-old F who currently is homeless in [facility], has a history of schizoaffective disorder, bipolar type, and was admitted on 09/03/19 05:42 on a 302 involuntary commitment for psychosis, suicidal ideation, inability to provide for basic needs, and medication noncompliance. Chief Complaint "Fine." Review of Systems Notes Constitutional: denied Cardiovascular: denied Respiratory: denied Gastrointestinal: denied Neurological: denied Psychiatric: denies symptoms other than stated above Total of at least 10 systems reviewed, pertinent positives as above and in HPI. Sleep Information Total Hours of Sleep: 6 Sleep Comments: . Meal Information Percent Meal Consumed - Breakfast: 100 Percent Meal Consumed - Lunch: 100 Percent Meal Consumed - Dinner: 100 Nutrition Comment: documented from the pt. meal record Subjective Subjective Patient was seen & assessed and interval progress reviewed with nursing and social work. Staff report the patient continued to be rather irritable and isolative after her angry outburst yesterday afternoon. Pt is reportedly still irritable this morning. Pt was seen today to assess progress since admission. Ukrainian-[place] conversation was conducted with assistance from [facility] interpretive service - Alejandro #[id number]. Pt appeared rather irritable as we waited for the call to connect. Pt was observed to be pacing the room and talking under her breath in Ukrainian. When call was connected with the translator/interpreter, the patient sat on her bed and participated appropriately in a superficial conversation. She reported she is "fine" and denied any concerns. Pt continues to deny any physical symptoms or medication side effects. She did not have additional questions and denied needs at this time. Physical Exam Psychiatric Orientation: alert and + guarded (superficially cooperative) Apperance: appropriately dressed (casually, in leggings and t-shirt) and appropriately groomed (recently showered) Eye Contact: + fair eye contact Motor Behavior: no abnormal motor movements Speech: normal rate/rhythm/volume of speech (brief responses to questions) Affect: + irritable affect and + constricted affect Mood: "Fine" Thought Process: + concrete thought process Thought Content: no delusions (did not verbalize any delusional thoughts during conversation) Likely ongoing fixed delusions Cognition: attention grossly intact and language grossly intact Insight: + severely impaired insight Judgement: + severely impaired judgement Vital Signs (Past 24 Hours) Last Vital Signs Temp 36.6 C 10/05/19 06:00 Pulse 69 10/05/19 06:14 Resp 18 10/05/19 06:00 BP 137/73 10/05/19 06:14 Pulse Ox 95 09/03/19 05:47 Results & Data ([facility]) Current Inpatient Medications Current Inpatient Medications: Current Inpatient Medications Acetaminophen (Tylenol) 650 mg PO Q4H PRN PRN Reason: Headache or Minor Fever Stop: 11/02/19 08:46 Al Hydrox/Mg Hydrox/Simethicone (Maalox) 30 ml PO Q4H PRN PRN Reason: GI Upset Stop: 11/02/19 08:46 Bismuth Subsalicylate (Kaopectate) 15 ml PO PRN PRN PRN Reason: Loose Stool Stop: 11/02/19 08:46 Clotrimazole (Lotrimin 1%) 1 appln EXT BID [facility] Stop: 10/24/19 20:59 Last Admin: 10/05/19 08:25 Dose: 1 appln Documented by: Docusate Sodium (Colace) 100 mg PO BID [facility] Stop: 11/02/19 20:59 Last Admin: 10/05/19 08:24 Dose: 100 mg Documented by: Hydroxyzine HCl (Vistaril) 50 mg PO HSZ PRN PRN Reason: Insomnia Stop: 11/02/19 08:46 Hydroxyzine HCl (Vistaril) 25 mg PO Q4H PRN PRN Reason: Anxiety Stop: 11/02/19 08:46 Levothyroxine Sodium (Synthroid) 75 mcg PO DAILYBB [facility] Stop: 11/02/19 07:59 Last Admin: 10/05/19 08:24 Dose: 75 mcg Documented by: [place] Carbonate (Eskalith) 450 mg PO BID [facility] Stop: 11/02/19 08:59 Last Admin: 10/05/19 08:24 Dose: 450 mg Documented by: Magnesium Hydroxide (Milk Of Magnesia) 30 ml PO DAILY PRN PRN Reason: Constipation Stop: 11/02/19 08:46 Simvastatin (Zocor) 10 mg PO HS [facility] Stop: 11/02/19 21:59 Last Admin: 10/04/19 20:54 Dose: 10 mg Documented by: Sodium Chloride (Mower Nasal) 1 - 2 sprays NA PRN PRN PRN Reason: Nasal Dryness/Congestion Stop: 11/02/19 08:46 Mental Health & Subst Abuse Tx Psychiatrist Name of Psychiatrist: Jackelin Psychiatrist's Date of Appointment with Psychiatrist: 09/14/19 Time of Appointment with Psychiatrist: 11:00 a.m. Psychiatric Appointment Comment: [id number] [place] [address] Therapist Name of Therapist: None Plug Assembler Name of Plug Assembler: [facility] - Lizzy Pandey Phone Number for Plug Assembler: [phone] Post Discharge Appointments Primary Care Physician Name Of Family Doctor: [facility] Primary Care Provider Appointment Comment: [id number], [address], [place] [address]
[2019-10-05] MEDS: SIMVASTATIN 10 MG TAB PO SCH (21:52)
--- NOTE | 2019-10-06 09:03 | Psychiatric Progress Note ---
Date of Service October 06, 2019 Impression / Recommendations Impression 63-year-old Nepalese female with schizoaffective disorder bipolar type admitted on a 302 commitment 4 days after being discharged from this unit on 08/29 after a 27-day hospitalization. She was discharged on a 304 IOC, and return to the ER later that same day, after police were called due to bizarre behavior at a local grocery store, but was again discharged. Readmitted with psychotic symptoms including paranoia, delusions of persecution (that family and people at the snf were trying to poison/harm her), refusing to eat with hypokalemia, homelessness, delusions that she owns a home, and inability to provide for her own basic needs. Additionally, family members who petitioned reported she made suicidal statements and walked into traffic, and reported delusions that her son had stabbed her in her intestines were hanging out. They also reported she had been noncompliant with oral psychotropic medications, and although her bilingual patient support caseworker assisted her to fill these on the day of discharge, she did not bring them into the hospital with her and says she does not know where they are. She is repeatedly demonstrated complete inability to provide for her own basic needs outside of the hospital, including health, welfare, snf, food, and safety. Inpatient treatment is medically necessary due to the severity of her symptoms and risk for suicide if discharged. She is now on a 304 involuntary commitment, and we are recommending long-term inpatient treatment at [facility]. Referral packet was sent for review on 09/07/2019, we still have not received any information regarding acceptance despite several attempts at communication with the facility. (1) Schizoaffective disorder, bipolar type: 09/03/19 -The patient has been admitted to the locked, secured behavioral health unit and has been placed in special observation room. She is also being monitored with close observations and every 15-minute direct observation. When more stable she will be actively encouraged to participate in individual, group, and activity therapies. We will also attempt to involve the family if the patient permits us to and if they agree. - Resuming medications as was rx'd at time of discharge on 08/29 including po Invega, lithium, and Sustenna. 09/03 -continue current medications, patient is taking them. -File for 306 conversion hearing to be held 09/06/2019. She will likely need referral to the [facility] hospital due to the need for long-term inpatient treatment. -Reviewed FLP and FG from recent hospitalization 08/07/2019: Cholesterol 221, glucose 109, other values within normal limits. -Attempt to involve family is able; son-in-law Poli is petitioner and was involved in hospitalization so we will ask staff to contact him for collateral information and to determine the family's ability to assist with discharge planning and housing. She has very limited supports in the community and if they are unable to assist her with housing and care, she will likely require long-term hospitalization. -Continue private room for psychosis. 09/04 - Continue current medication regimen - patient has been compliant with medications in this structured environment - 306 conversion hearing scheduled for 09/05 - Meeting with bilingual patient support caseworker today to discuss treatment options and continue attempts to build rapport - Referral to [facility] is being recommended at this time has patient has repeatedly demonstrated an inability to care for self and provide for basic needs without the support of a structured psychiatric setting. - EKG (WNL). PPD was refused by patient - CXR ordered 09/05 -306 hearing held and patient converted to a 304 involuntary commitment. -Referred to [facility] for long-term inpatient treatment, as patient is severely ill and unable to provide for her own basic needs as a result of her mental illness, and treatment for 27 days on our acute unit was insufficient for successful transition to the community. She was at [facility] for 4 months within the past year, and did respond to treatment there, so [facility] as recommended for long-term treatment of SPMI. -EKG and chest x-ray completed for [facility] referral. 09/06 - Continue current medication regimen - Referral to [facility] is being prepared, approval was reportedly received from the county - Ongoing attempt to build rapport with psychiatric bilingual patient support caseworker 09/07 - 09/09 - Continue current medication regimen - Referral sent to [facility] on 09/07/2019 for recommended long- term psychiatric hospitalization based on chronic medication/treatment non- compliance and repeated demonstration of inability to care for self outside of a structured psychiatric setting. - Pt was informed of [facility] referral today during encounter 09/10 - Continue current medication regimen - [facility] referral sent on 09/07/2019 - requesting updates regarding when case is anticipated to be reviewed and ensure information was received - Pt continues to demand to leave, unable to appreciated the severity of her condition. Ongoing concern related to patient's repeated demonstration of inability to care for self outside of a structured psychiatric setting. 09/11 - Continue current medication regimen - Awaiting acceptance at [facility]. Ongoing concern related to patient's repeated demonstration of inability to care for self outside of a structured psychiatric setting. 09/12 - 09/14 - Pt due for next injection of Invega Sustenna 234mg IM on 09/16. Oral supplementation was continued from last hospitalization due to concern for ongoing instability with regard to psychotic symptoms. In preparation for first maintenance dose, will reduce oral supplementation to 3mg qAM and discontinue oral paliperidone on 09/16. Continue lithium 450mg BID unchanged. - Awaiting replay for [facility] regarding referral. Ongoing concern related to patient's repeated demonstration of inability to care for self outside of a structured psychiatric setting. Pt has consistently not been agreeable to diversion planning as a result of fixed delusional beliefs that she has family support, that she has a house to live in, and that she has a lot of money - none of these statements confirmed to be true. 09/15 -Continue treatment plan as previously prescribed 09/16 -now fully converted to invega sustenna. 09/17 - Continue current treatment plan 09/18 - 09/20 - Continue current treatment plan - Confirmed that information from patient's hospitalization at our facility was received by [facility], but case has not yet been reviewed. Still awaiting determination of acceptance status. 09/21 - continue current meds and tx plan. Reinstitute medically necessary private room as hx of aggression, labile mood, poor ability to keep contact precautions with COVID, hx homelessness higher risk category 09/22 - 09/23 - continue current meds and tx plan. 09/24 continue current meds and tx plan. MNPR for now as less paranoid and more visible on unit. 09/25 - Continue current treatment plan - patient remains irritable, paranoid, and delusional - Continue MNPR for paranoia and irritability 09/26 - Continue current treatment plan - Still awaiting response from [facility], 3 weeks after initially referral packet was sent - Pt did reportedly complete her Medical Assistance application. Consider repeat meeting with the county to discuss options for diversion planning; though these remain very limited - As review of patient's treatment plan has historically been very upsetting to the patient, discharge plans have not changed, and the therapeutic value of the review is limited - discussed with patient who did agree to review her treatment plan once a week unless there are changes in the interim. This was confirmed by multiple parties and can be reviewed with greater frequency at which time patient better tolerates the conversation and the therapeutic value is increased. 09/27 - 10/01 - Continue current treatment plan - Still awaiting response from [facility] - Pt is unwilling to consider alternative housing options - she maintains the delusion that she has a penthouse in [place] which has been confirmed to be untrue. 10/02 - Continue as above - medications renewed - Still awaiting response from [facility] - Pt maintains fixed delusions that are interfering significantly with patient's ability to adequately care for herself outside of a structured/supervised setting 10/03 - Continue current medication regimen - 30-day treatment review; treatment plan reviewed with patient who did become angry when length of stay was reviewed. Again became acutely agitated during conversation with provider today - Pt demonstrated very loud yelling, acute agitation, and inability to appropriately communicate frustration. These concerns, in addition to numerous failed attempts at discharge, continue to be evidence as to why patient is not appropriate to be discharged to the community. - Pt is not appropriate to go outside based on episodes of acute agitation and continued delusions which interfere with patient's ability to ensure appropriate behavior 10/04 - 10/05 - Continue current medication regimen - Pt remains inappropriate to go outside - Plan remains for transfer to the [facility] - no response regarding acceptance (2) Noncompliance with medication regimen: 09/02 - Unable to clarify if pt has been taking her medications regularly in the days since discharge. She at first indicated that she was not then indicated the medications arein a bag of hers but did not indicate actually taking them. The patient also claims to not recall the names of any of her medications and reports that she does not have the conditions for which her known medications are clearly intended. Possible cognitive impairments. might be impacting medication compliance. language impairments with pt not speaking Persian impacting compliance concerns. -The patient's underlying psychiatric condition will be actively treated. It is hoped that with treatment we will be able to improve medication compliance and also address aspects that impact compliance and improve this with appropriate interventions. CANTOR form of Invega to be continued at this time, next dose not due for another 2 weeks. Pt took meds this morning that were offered to her but given her extensive non compliance prior to, during and seeming after recent admission and lack of insight to her dx and presentation and indicating that recent hospitalization was quite helpful for her and her indicating wanting to continue her medications as was rx' at end of recent [facility] admission and were instructed to take at that discharge. I am in favor of medication over objection if pt objects to taking her medication during the course of this admission or if it is determined that pt is checking or not actually taking her medications. (3) Homeless: 09/03/19 -In the past, the patient has lived with family members. However, this is clearly not an option at the present time. The context is that the patient reportedly was in penitentiary for approximately a year because of her making terroristic threats against the family. While it does seem clear that the family wants to help protect her, they are unable to safely provide snf. Given the patient's history of neglect of self-care, medication nonadherence, and possible cognitive deficits we are going to investigate structured residential programs as part of our discharge planning. 09/03 -patient has consistently refused assistance with housing, insisting that she has a house in [place], although has not been able to provide an address and her family states this is not true. 09/06 - Patient's grandson called unit yesterday to provide additional inform ation, stating the patient has been homeless for quite some time and there is no valid address for the patient 09/29 pt remains delusional about having a home and is agitated if this is approached or challenged in anyway 09/30 did not discuss further today as this is a point of delusion and been shown to be refractory to challenging in anyway (4) Involuntary commitment: 09/03 -patient on a 304 IOC, readmitted on a 302. We will file for a 306 conversion hearing. 09/04 - 306 hearing scheduled for 09/05; anticipate referral to [facility]. 09/05 -306 conversion granted, now here on a 304 involuntary commitment. 09/07 - Referral packet sent to [facility] on 09/06 (5) Nicotine abuse: 09/02 - Nicotine Patch 7mg topical daily resumed, and smoking cessation to be done when pt is in more apposite mental state to do so Inventory Assets Strengths: concerned family members, pleasant on approach Needs: stable housing, improved compliance to medication and treatment plan. Risk Factors Assessment Male: No : No Do You Have Access To A Gun?: No Health Problems: No Mental Health Diagnoses: Yes Substance Use Disorders: No Previous Attempt: Yes (Per family, patient denies) Previous Psychiatric Hospitalization: Yes Hopelessness: No Smoker: Yes Protective Factors Assessment : No Responsible for Young Children: No Employed: No Stable Relationships: No Supportive Family: No Good Rapport with Provider: No Interval History Identifying Information ANDREW CYR is a 63-year-old F who currently is homeless in [facility], has a history of schizoaffective disorder, bipolar type, and was admitted on 09/03/19 05:42 on a 302 involuntary commitment for psychosis, suicidal ideation, inability to provide for basic needs, and medication noncompliance. Chief Complaint "Good. I'm just listening to music." Review of Systems Notes Constitutional: denied Cardiovascular: denied Respiratory: denied Gastrointestinal: denied Neurological: denied Psychiatric: denies symptoms other than stated above Total of at least 10 systems reviewed, pertinent positives as above and in HPI. Sleep Information Total Hours of Sleep: 5.75 Sleep Comments: . Meal Information Percent Meal Consumed - Breakfast: 50 Percent Meal Consumed - Lunch: 100 Percent Meal Consumed - Dinner: 100 Nutrition Comment: documented from the pt. meal record Subjective Subjective Patient was seen & assessed and interval progress reviewed with treatment team. Staff report the patient continues to be isolative and irritable at times. Discharge plan continues to be for transfer to the [facility]; however, we have still not heard a response regarding acceptance. Pt was seen today to assess progress since admission. Citizen Of [place]ian conversation was conducted with assistance from [employer] interpretive service Wayne #[id number]. Pt reports that she is "good" and ''I'm just listening to music." Pt denies any physical concerns at this time. She denies additional questions or things she desires to discuss today. Pt was offered for additional activities to be provided, mazes or word finds or activities of her choosing. Pt declines, stating "I'm good." She denied other needs at this time. Physical Exam Psychiatric Orientation: alert, oriented x 3 and cooperative (superficially pleasant) Apperance: appropriately dressed (casually; in t-shirt and leggings ) and + disheveled (hair is unruly, appearing unkempt) Eye Contact: + fair eye contact Motor Behavior: no abnormal motor movements (observed while sitting on edge of bed) Speech: normal rate/rhythm/volume of speech (brief responses to questions) Affect: + constricted affect Mood: no depressed mood ("good") Thought Process: + concrete thought process Thought Content: + delusions and + persecution Fixed delusions remain present, but not verbalized during today's encounter. Cognition: attention grossly intact and language grossly intact Insight: + impaired insight Judgement: + impaired judgement Vital Signs (Past 24 Hours) Last Vital Signs Temp 36.6 C 10/06/19 06:00 Pulse 83 10/06/19 06:02 Resp 16 10/06/19 06:00 BP 135/82 10/06/19 06:02 Pulse Ox 95 09/03/19 05:47 Results & Data ([facility]) Current Inpatient Medications Current Inpatient Medications: Current Inpatient Medications Acetaminophen (Tylenol) 650 mg PO Q4H PRN PRN Reason: Headache or Minor Fever Stop: 11/02/19 08:46 Al Hydrox/Mg Hydrox/Simethicone (Maalox) 30 ml PO Q4H PRN PRN Reason: GI Upset Stop: 11/02/19 08:46 Bismuth Subsalicylate (Kaopectate) 15 ml PO PRN PRN PRN Reason: Loose Stool Stop: 11/02/19 08:46 Clotrimazole (Lotrimin 1%) 1 appln EXT BID CLARISA Stop: 10/24/19 20:59 Last Admin: 10/05/19 21:51 Dose: 1 appln Documented by: Docusate Sodium (Colace) 100 mg PO BID CLARISA Stop: 11/02/19 20:59 Last Admin: 10/05/19 21:50 Dose: 100 mg Documented by: Haloperidol (Haldol) 5 mg PO Q6H PRN PRN Reason: Agitation/Psychosis Stop: 11/04/19 15:13 Hydroxyzine HCl (Vistaril) 50 mg PO HSZ PRN PRN Reason: Insomnia Stop: 11/02/19 08:46 Hydroxyzine HCl (Vistaril) 25 mg PO Q4H PRN PRN Reason: Anxiety Stop: 11/02/19 08:46 Levothyroxine Sodium (Synthroid) 75 mcg PO DAILYBB CLARISA Stop: 11/02/19 07:59 Last Admin: 10/05/19 08:24 Dose: 75 mcg Documented by: [place] Carbonate (Eskalith) 450 mg PO BID CLARISA Stop: 11/02/19 08:59 Last Admin: 10/05/19 21:50 Dose: 450 mg Documented by: Magnesium Hydroxide (Milk Of Magnesia) 30 ml PO DAILY PRN PRN Reason: Constipation Stop: 11/02/19 08:46 Simvastatin (Zocor) 10 mg PO HS CLARISA Stop: 11/02/19 21:59 Last Admin: 10/05/19 21:52 Dose: 10 mg Documented by: Sodium Chloride ([place] Nasal) 1 - 2 sprays NA PRN PRN PRN Reason: Nasal Dryness/Congestion Stop: 11/02/19 08:46 Mental Health & Subst Abuse Tx Psychiatrist Name of Psychiatrist: Jackelin Psychiatrist's Date of Appointment with Psychiatrist: 09/14/19 Time of Appointment with Psychiatrist: 11:00 a.m. Psychiatric Appointment Comment: [address] [place] [address] Therapist Name of Therapist: None Shuttle Inspector Name of Shuttle Inspector: [employer] - Lizzy Pandey Phone Number for Shuttle Inspector: [phone] Post Discharge Appointments Primary Care Physician Name Of Family Doctor: [facility] Primary Care Provider Appointment Comment: [address], [address], [place] [address]
[2019-10-06] MEDS: LITHIUM CARBONATE 450 MG TABCR PO SCH ×2 (09:35→20:40)
[2019-10-06] MEDS: LEVOTHYROXINE SODIUM 75 MCG TABLET PO SCH (09:35)
[2019-10-06] MEDS: CLOTRIMAZOLE 1% CR 15 GM TUBE EXT SCH ×2 (09:35→20:40)
[2019-10-06] MEDS: DOCUSATE SODIUM 100 MG CAP PO SCH ×2 (09:35→20:39)
[2019-10-06] MEDS: SIMVASTATIN 10 MG TAB PO SCH (20:41)
[2019-10-07] MEDS: DOCUSATE SODIUM 100 MG CAP PO SCH ×2 (08:09→21:37)
[2019-10-07] MEDS: LEVOTHYROXINE SODIUM 75 MCG TABLET PO SCH (08:10)
[2019-10-07] MEDS: LITHIUM CARBONATE 450 MG TABCR PO SCH ×2 (08:10→21:37)
[2019-10-07] MEDS: CLOTRIMAZOLE 1% CR 15 GM TUBE EXT SCH ×2 (08:10→21:39)
--- NOTE | 2019-10-07 08:19 | Psychiatric Progress Note ---
Date of Service October 07, 2019 Impression / Recommendations Impression 63-year-old [place]oc[place] female with schizoaffective disorder bipolar type admitted on a 302 commitment 4 days after being discharged from this unit on 08/29 after a 27-day hospitalization. She was discharged on a 304 IOC, and returned to the ER later that same day, after police were called due to bizarre behavior at a local grocery store, and was again discharged. Readmitted several days later with psychotic symptoms including paranoia, delusions of persecution (that people were trying to poison/harm her), refusing to eat with hypokalemia, homelessness, delusions that she owns a home, and inability to provide for her own basic needs. Additionally, family members who petitioned reported she made suicidal statements and walked into traffic, and reported delusions that her son had stabbed her in her intestines were hanging out. They also reported she had been noncompliant with oral psychotropic medications, and although her rn case manager hospice assisted her to fill these on the day of discharge, she did not bring them into the hospital with her and says she does not know where they are. She is repeatedly demonstrated complete inability to provide for her own basic needs outside of the hospital, including health, welfare, correction, food, and safety. Inpatient treatment is medically necessary due to the severity of her symptoms and risk for suicide if discharged. She is now on a 304 involuntary commitment, and we are recommending long-term inpatient treatment at the [facility]. Referral was made on 09/07/2019, we still have not received any information regarding acceptance despite attempts to communicate with the facility and [facility] ID. (1) Schizoaffective disorder, bipolar type: 09/03/19 -The patient has been admitted to the locked, secured behavioral health unit and has been placed in special observation room. She is also being monitored with close observations and every 15-minute direct observation. When more stable she will be actively encouraged to participate in individual, group, and activity therapies. We will also attempt to involve the family if the patient permits us to and if they agree. - Resuming medications as was rx'd at time of discharge on 08/29 including po Invega, lithium, and Sustenna. 09/03 -continue current medications, patient is taking them. -File for 306 conversion hearing to be held 09/06/2019. She will likely need referral to the [facility] hospital due to the need for long-term inpatient treatment. -Reviewed FLP and FG from recent hospitalization 08/07/2019: Cholesterol 221, glucose 109, other values within normal limits. -Attempt to involve family is able; son-in-law Poli is petitioner and was involved in hospitalization so we will ask staff to contact him for collateral information and to determine the family's ability to assist with discharge planning and housing. She has very limited supports in the community and if they are unable to assist her with housing and care, she will likely require long-term hospitalization. -Continue private room for psychosis. 09/04 - Continue current medication regimen - patient has been compliant with medications in this structured environment - 306 conversion hearing scheduled for 09/05 - Meeting with rn case manager hospice today to discuss treatment options and continue attempts to build rapport - Referral to [facility] is being recommended at this time has patient has repeatedly demonstrated an inability to care for self and provide for basic needs without the support of a structured psychiatric setting. - EKG (WNL). PPD was refused by patient - CXR ordered 09/05 -306 hearing held and patient converted to a 304 involuntary commitment. -Referred to [facility] for long-term inpatient treatment, as patient is severely ill and unable to provide for her own basic needs as a result of her mental illness, and treatment for 27 days on our acute unit was insufficient for successful transition to the community. She was at [facility] for 4 months within the past year, and did respond to treatment there, so returned to the [facility] as recommended for long-term treatment of SPMI. -EKG and chest x-ray completed for [facility] hospital referral. 09/06 - Continue current medication regimen - Referral to [facility] is being prepared, approval was reportedly received from the county - Ongoing attempt to build rapport with psychiatric rn case manager hospice 09/07 - 09/09 - Continue current medication regimen - Referral sent to [facility] on 09/07/2019 for recommended long- term psychiatric hospitalization based on chronic medication/treatment non- compliance and repeated demonstration of inability to care for self outside of a structured psychiatric setting. - Pt was informed of [facility] referral today during encounter 09/10 - Continue current medication regimen - [facility] referral sent on 09/07/2019 - requesting updates regarding when case is anticipated to be reviewed and ensure information was received - Pt continues to demand to leave, unable to appreciated the severity of her condition. Ongoing concern related to patient's repeated demonstration of inability to care for self outside of a structured psychiatric setting. 09/11 - Continue current medication regimen - Awaiting acceptance at [facility]. Ongoing concern related to patient's repeated demonstration of inability to care for self outside of a structured psychiatric setting. 09/12 - 09/14 - Pt due for next injection of Invega Sustenna 234mg IM on 09/16. Oral supple mentation was continued from last hospitalization due to concern for ongoing instability with regard to psychotic symptoms. In preparation for first maintenance dose, will reduce oral supplementation to 3mg qAM and discontinue oral paliperidone on 09/16. Continue lithium 450mg BID unchanged. - Awaiting replay for [facility] regarding referral. Ongoing concern related to patient's repeated demonstration of inability to care for self outside of a structured psychiatric setting. Pt has consistently not been agreeable to diversion planning as a result of fixed delusional beliefs that she has family support, that she has a house to live in, and that she has a lot of money - none of these statements confirmed to be true. 09/15 -Continue treatment plan as previously prescribed 09/16 -now fully converted to invega sustenna. 09/17 - Continue current treatment plan 09/18 - 09/20 - Continue current treatment plan - Confirmed that information from patient's hospitalization at our facility was received by [facility], but case has not yet been reviewed. Still awaiting determination of acceptance status. 09/21 - continue current meds and tx plan. Reinstitute medically necessary private room as hx of aggression, labile mood, poor ability to keep contact precautions with COVID, hx homelessness higher risk category 09/22 - 09/23 - continue current meds and tx plan. 09/24 continue current meds and tx plan. MNPR for now as less paranoid and more visible on unit. 09/25 - Continue current treatment plan - patient remains irritable, paranoid, and delusional - Continue MNPR for paranoia and irritability 09/26 - Continue current treatment plan - Still awaiting response from [facility], 3 weeks after initially referral packet was sent - Pt did reportedly complete her Medical Assistance application. Consider repeat meeting with the county to discuss options for diversion planning; though these remain very limited - As review of patient's treatment plan has historically been very upsetting to the patient, discharge plans have not changed, and the therapeutic value of the review is limited - discussed with patient who did agree to review her tr eatment plan once a week unless there are changes in the interim. This was confirmed by multiple parties and can be reviewed with greater frequency at which time patient better tolerates the conversation and the therapeutic value is increased. 09/27 - 10/01 - Continue current treatment plan - Still awaiting response from [facility] - Pt is unwilling to consider alternative housing options - she maintains the delusion that she has a penthouse in [place] which has been confirmed to be untrue. 10/02 - Continue as above - medications renewed - Still awaiting response from [facility] - Pt maintains fixed delusions that are interfering significantly with patient's ability to adequately care for herself outside of a structured/supervised setting 10/03 - Continue current medication regimen - 30-day treatment review; treatment plan reviewed with patient who did become angry when length of stay was reviewed. Again became acutely agitated during conversation with provider today - Pt demonstrated very loud yelling, acute agitation, and inability to appropriately communicate frustration. These concerns, in addition to numerous failed attempts at discharge, continue to be evidence as to why patient is not appropriate to be discharged to the community. - Pt is not appropriate to go outside based on episodes of acute agitation and continued delusions which interfere with patient's ability to ensure appropriate behavior 10/04 - 10/05 - Continue current medication regimen - Pt remains inappropriate to go outside - Plan remains for transfer to the [facility] - no response regarding acceptance 10/06 -continue current plan. Amended court order to be obtained Wednesday and sent to the [facility] for acceptance and put patient on their wait list. (2) Noncompliance with medication regimen: 09/02 - Unable to clarify if pt has been taking her medications regularly in the days since discharge. She at first indicated that she was not then indicated the medications arein a bag of hers but did not indicate actually taking them. The patient also claims to not recall the names of any of her medications and reports that she does not have the conditions for which her known medications are clearly intended. Possible cognitive impairments. might be impacting medication compliance. language impairments with pt not speaking French impacting compliance concerns. -The patient's underlying psychiatric condition will be actively treated. It is hoped that with treatment we will be able to improve medication compliance and also address aspects that impact compliance and improve this with appropriate interventions. CANTOR form of Invega to be continued at this time, next dose not due for another 2 weeks. Pt took meds this morning that were offered to her but given her extensive non compliance prior to, during and seeming after recent admission and lack of insight to her dx and presentation and indicating that recent hospitalization was quite helpful for her and her indicating wanting to continue her medications as was rx' at end of recent [facility] admission and were instructed to take at that discharge. I am in favor of medication over objection if pt objects to taking her medication during the course of this admission or if it is determined that pt is checking or not actually taking her medications. (3) Homeless: 09/03/19 -In the past, the patient has lived with family members. However, this is clearly not an option at the present time. The context is that the patient reportedly was in [facility] for approximately a year because of her making terroristic threats against the family. While it does seem clear that the family wants to help protect her, they are unable to safely provide correction. Given the patient's history of neglect of self-care, medication nonadherence, and possible cognitive deficits we are going to investigate structured residential programs as part of our discharge planning. 09/03 -patient has consistently refused assistance with housing, insisting that she has a house in [place], although has not been able to provide an address and her family states this is not true. 09/06 - Patient's grandson called unit yesterday to provide additional information, stating the patient has been homeless for quite some time and there is no valid address for the patient 09/29 pt remains delusional about having a home and is agitated if this is approached or challenged in anyway 09/30 did not discuss further today as this is a point of delusion and been shown to be refractory to challenging in anyway (4) Involuntary commitment: 09/03 -patient on a 304 IOC, readmitted on a 302. We will file for a 306 conversion hearing. 09/04 - 306 hearing scheduled for 09/05; anticipate referral to [facility]. 09/05 -306 conversion granted, now here on a 304 involuntary commitment. 09/07 - Referral packet sent to [facility] on 09/06 (5) Nicotine abuse: 09/02 - Nicotine Patch 7mg topical daily resumed, and smoking cessation to be done when pt is in more apposite mental state to do so Inventory Assets Strengths: concerned family members, pleasant on approach Needs: stable housing, improved compliance to medication and treatment plan. Risk Factors Assessment Male: No : No Do You Have Access To A Gun?: No Health Problems: No Mental Health Diagnoses: Yes Substance Use Disorders: No Previous Attempt: Yes (Per family, patient denies) Previous Psychiatric Hospitalization: Yes Hopelessness: No Smoker: Yes Protective Factors Assessment : No Responsible for Young Children: No Employed: No Stable Relationships: No Supportive Family: No Good Rapport with Provider: No Interval History Identifying Information ANDREW CYR is a 63-year-old F who currently is homeless in [facility], has a history of schizoaffective disorder, bipolar type, and was admitted on 09/03/19 05:42 on a 302 involuntary commitment for psychosis, suicidal ideation, inability to provide for basic needs, and medication noncompliance. Chief Complaint "Fine thank you". Review of Systems Sleep Information Total Hours of Sleep: 7 Sleep Comments: . Meal Information Percent Meal Consumed - Breakfast: 100 Percent Meal Consumed - Lunch: 100 Percent Meal Consumed - Dinner: 100 Nutrition Comment: documented from the pt. meal record Subjective Subjective Patient was seen & assessed and interval progress reviewed with nursing and social work. Staff report the patient was up several times overnight walking in the halls, and requesting soda. She then went to sleep in her room with the lights on and music playing. She has been in good behavioral control on the unit, but isolative and withdrawn, only coming out for food. The [facility] and [facility] were again contacted yesterday regarding the status of her [facility] referral, as it has been 1 month since the referral was made. They indicated they are awaiting the amended court order regarding her 304 commitment, which should be ready on Wednesday. On my assessment, she was seen in her room with warp bleaching vat tender #[id number]. She answers "fine thank you" to most questions, and denies current mood and anxiety symptoms. She reports good sleep and appetite. She denies suicidal thoughts, and hallucinations. When asked about the roommates that she told staff was sitting next to her, when no one was there, she appears confused and says "what roommate?" When asked about a stack of papers on her bedside table that are covered in numbers, she says she is "working on earning additional money." When asked about her treatment goals, she says "music and nothing." She says her plan when she eventually leaves the hospital is to go live with her mother who lives in a "large neighborhood," initially stating that is in [place], and then saying it is "between here and there." Physical Exam Psychiatric Orientation: alert and cooperative Apperance: appropriately dressed, appropriately groomed and appeared stated age Overweight, wearing black stretch pants and a T-shirt, sneakers without the laces Eye Contact: + fair eye contact Motor Behavior: steady gait and station and no abnormal motor movements Speech: normal rate/rhythm/volume of speech Affect: euthymic affect "Fine thank you." Thought Process: goal directed thought process Thought Content: + delusions (That her mother lives in [place], that she has a house in [place] she can return to) Suicidal Thoughts: denies suicidal thoughts Homicidal Thoughts: denies homicidal thoughts Hallucinations: no auditory hallucinations Patient denies hallucinations, but recently was experiencing hallucinations of another person in her room who she referred to as her roommate Cognition: attention grossly intact; + recent memory not intact and + remote memory not intact Insight: + impaired insight Judgement: + impaired judgement Vital Signs (Past 24 Hours) Last Vital Signs Temp 36.7 C 10/07/19 06:34 Pulse 73 10/07/19 06:34 Resp 16 10/07/19 06:34 BP 133/76 10/07/19 06:34 Pulse Ox 95 09/03/19 05:47 Results & Data ([facility]) Current Inpatient Medications Current Inpatient Medications: Current Inpatient Medications Acetaminophen (Tylenol) 650 mg PO Q4H PRN PRN Reason: Headache or Minor Fever Stop: 11/02/19 08:46 Al Hydrox/Mg Hydrox/Simethicone (Maalox) 30 ml PO Q4H PRN PRN Reason: GI Upset Stop: 11/02/19 08:46 Bismuth Subsalicylate (Kaopectate) 15 ml PO PRN PRN PRN Reason: Loose Stool Stop: 11/02/19 08:46 Clotrimazole (Lotrimin 1%) 1 appln EXT BID CLARISA Stop: 10/24/19 20:59 Last Admin: 10/07/19 08:10 Dose: 1 appln Documented by: Docusate Sodium (Colace) 100 mg PO BID CLARISA Stop: 11/02/19 20:59 Last Admin: 10/07/19 08:09 Dose: 100 mg Documented by: Haloperidol (Haldol) 5 mg PO Q6H PRN PRN Reason: Agitation/Psychosis Stop: 11/04/19 15:13 Hydroxyzine HCl (Vistaril) 50 mg PO HSZ PRN PRN Reason: Insomnia Stop: 11/02/19 08:46 Hydroxyzine HCl (Vistaril) 25 mg PO Q4H PRN PRN Reason: Anxiety Stop: 11/02/19 08:46 Levothyroxine Sodium (Synthroid) 75 mcg PO DAILYBB CLARISA Stop: 11/02/19 07:59 Last Admin: 10/07/19 08:10 Dose: 75 mcg Documented by: [place] Carbonate (Eskalith) 450 mg PO BID CLARISA Stop: 11/02/19 08:59 Last Admin: 10/07/19 08:10 Dose: 450 mg Documented by: Magnesium Hydroxide (Milk Of Magnesia) 30 ml PO DAILY PRN PRN Reason: Constipation Stop: 11/02/19 08:46 Simvastatin (Zocor) 10 mg PO HS CLARISA Stop: 11/02/19 21:59 Last Admin: 10/06/19 20:41 Dose: 10 mg Documented by: Sodium Chloride (Cottle Nasal) 1 - 2 sprays NA PRN PRN PRN Reason: Nasal Dryness/Congestion Stop: 11/02/19 08:46 Mental Health & Subst Abuse Tx Psychiatrist Name of Psychiatrist: Jackelin Psychiatrist's Date of Appointment with Psychiatrist: 09/14/19 Time of Appointment with Psychiatrist: 11:00 a.m. 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
[2019-10-07] MEDS: SIMVASTATIN 10 MG TAB PO SCH (21:37)
--- NOTE | 2019-10-08 08:36 | Psychiatric Progress Note ---
Date of Service October 08, 2019 Impression / Recommendations Impression 63-year-old French female with schizoaffective disorder bipolar type admitted on a 302 commitment 4 days after being discharged from this unit on 08/29 after a 27-day hospitalization. She was discharged on a 304 IOC, and returned to the ER later that same day, after police were called due to bizarre behavior at a local grocery store, and was again discharged. Readmitted several days later with psychotic symptoms including paranoia, delusions of persecution (that people were trying to poison/harm her), refusing to eat with hypokalemia, homelessness, delusions that she owns a home, and inability to provide for her own basic needs. Additionally, family members who petitioned reported she made suicidal statements and walked into traffic, and reported delusions that her son had stabbed her in her intestines were hanging out. They also reported she had been noncompliant with oral psychotropic medications, and although her case briefer assisted her to fill these on the day of discharge, she did not bring them into the hospital with her and says she does not know where they are. She has repeatedly demonstrated complete inability to provide for her own basic needs outside of the hospital, including health, welfare, intermediate, food, and safety. Inpatient treatment is medically necessary due to the severity of her symptoms and risk for suicide if discharged. She is now on a 304 involuntary commitment, has been started on Invega Sustenna, and has been referred to the [facility] long-term inpatient treatment. Referral was made on 09/07/2019, it informed that she will be placed on the wait list once they receive the amended court order, hopefully 10/09/2019. Patient isolative in her room but remains delusional with believes that she has a home in [place] she can return to. (1) Schizoaffective disorder, bipolar type: 09/03/19 -The patient has been admitted to the locked, secured behavioral health unit and has been placed in special observation room. She is also being monitored with close observations and every 15-minute direct observation. When more stable she will be actively encouraged to participate in individual, group, and activity therapies. We will also attempt to involve the family if the patient permits us to and if they agree. - Resuming medications as was rx'd at time of discharge on 08/29 including po Invega, lithium, and Sustenna. 09/03 -continue current medications, patient is taking them. -File for 306 conversion hearing to be held 09/06/2019. She will likely need referral to the [facility] due to the need for long-term inpatient treatment. -Reviewed FLP and FG from recent hospitalization 08/07/2019: Cholesterol 221, glucose 109, other values within normal limits. -Attempt to involve family is able; son-in-law Poli is petitioner and was involved in hospitalization so we will ask staff to contact him for collateral information and to determine the family's ability to assist with discharge planning and housing. She has very limited supports in the community and if they are unable to assist her with housing and care, she will likely require long-term hospitalization. -Continue private room for psychosis. 09/04 - Continue current medication regimen - patient has been compliant with medications in this structured environment - 306 conversion hearing scheduled for 09/05 - Meeting with case briefer today to discuss treatment options and continue attempts to build rapport - Referral to [facility] is being recommended at this time has patient has repeatedly demonstrated an inability to care for self and provide for basic needs without the support of a structured psychiatric setting. - EKG (WNL). PPD was refused by patient - CXR ordered 09/05 -306 hearing held and patient converted to a 304 involuntary commitment. -Referred to [facility] for long-term inpatient treatment, as patient is severely ill and unable to provide for her own basic needs as a result of her mental illness, and treatment for 27 days on our acute unit was insufficient for successful transition to the community. She was at [facility] for 4 months within the past year, and did respond to treatment there, so returned to the [facility] as recommended for long-term treatment of SPMI. -EKG and chest x-ray completed for [facility] referral. 09/06 - Continue current medication regimen - Referral to [facility] is being prepared, approval was reportedly received from the county - Ongoing attempt to build rapport with psychiatric case briefer 09/07 - 09/09 - Continue current medication regimen - Referral sent to [facility] on 09/07/2019 for recommended long- term psychiatric hospitalization based on chronic medication/treatment non- compliance and repeated demonstration of inability to care for self outside of a structured psychiatric setting. - Pt was informed of [facility] referral today during encounter 09/10 - Continue current medication regimen - [facility] referral sent on 09/07/2019 - requesting updates regarding when case is anticipated to be reviewed and ensure information was received - Pt continues to demand to leave, unable to appreciated the severity of her condition. Ongoing concern related to patient's repeated demonstration of inability to care for self outside of a structured psychiatric setting. 09/11 - Continue current medication regimen - Awaiting acceptance at [facility]. Ongoing concern related to patient's repeated demonstration of inability to care for self outside of a structured psychiatric setting. 09/12 - 09/14 - Pt due for next injection of Invega Sustenna 234mg IM on 09/16. Oral supplementation was continued from last hospitalization due to concern for ongoing instability with regard to psychotic symptoms. In preparation for first maintenance dose, will reduce oral supplementation to 3mg qAM and discontinue oral paliperidone on 09/16. Continue lithium 450mg BID unchanged. - Awaiting replay for [facility] regarding referral. Ongoing concern related to patient's repeated demonstration of inability to care for self outside of a structured psychiatric setting. Pt has consistently not been agreeable to diversion planning as a result of fixed delusional beliefs that she has family support, that she has a house to live in, and that she has a lot of money - none of these statements confirmed to be true. 09/15 -Continue treatment plan as previously prescribed 09/16 -now fully converted to invega sustenna. 09/17 - Continue current treatment plan 09/18 - 09/20 - Continue current treatment plan - Confirmed that information from patient's hospitalization at our facility was received by [facility], but case has not yet been reviewed. Still awaiting determination of acceptance status. 09/21 - continue current meds and tx plan. Reinstitute medically necessary private room as hx of aggression, labile mood, poor ability to keep contact precautions with COVID, hx homelessness higher risk category 09/22 - 09/23 - continue current meds and tx plan. 09/24 continue current meds and tx plan. MNPR for now as less paranoid and more visible on unit. 09/25 - Continue current treatment plan - patient remains irritable, paranoid, and delusional - Continue MNPR for paranoia and irritability 09/26 - Continue current treatment plan - Still awaiting response from [facility], 3 weeks after initially referral packet was sent - Pt did reportedly complete her Medical Assistance application. Consider repeat meeting with the [facility] to discuss options for diversion planning; though these remain very limited - As review of patient's treatment plan has historically been very upsetting to the patient, discharge plans have not changed, and the therapeutic value of the review is limited - discussed with patient who did agree to review her treatment plan once a week unless there are changes in the interim. This was confirmed by multiple parties and can be reviewed with greater frequency at which time patient better tolerates the conversation and the therapeutic value is increased. 09/27 - 10/01 - Continue current treatment plan - Still awaiting response from [facility] - Pt is unwilling to consider alternative housing options - she maintains the delusion that she has a penthouse in [place] which has been confirmed to be untrue. 10/02 - Continue as above - medications renewed - Still awaiting response from [facility] - Pt maintains fixed delusions that are interfering significantly with patient's ability to adequately care for herself outside of a structured/supervised setting 10/03 - Continue current medication regimen - 30-day treatment review; treatment plan reviewed with patient who did become angry when length of stay was reviewed. Again became acutely agitated during conversation with provider today - Pt demonstrated very loud yelling, acute agitation, and inability to appropriately communicate frustration. These concerns, in addition to numerous failed attempts at discharge, continue to be evidence as to why patient is not appropriate to be discharged to the community. - Pt is not appropriate to go outside based on episodes of acute agitation and continued delusions which interfere with patient's ability to ensure appropriate behavior 10/04 - 10/05 - Continue current medication regimen - Pt remains inappropriate to go outside - Plan remains for transfer to the [facility] - no response regarding acceptance 10/06 - 10/07 -continue current plan. Amended court order to be obtained Wednesday and sent to the [facility] for acceptance and put patient on their wait list. (2) Noncompliance with medication regimen: 09/02 - Unable to clarify if pt has been taking her medications regularly in the days since discharge. She at first indicated that she was not then indicated the medications arein a bag of hers but did not indicate actually taking them. The patient also claims to not recall the names of any of her medications and reports that she does not have the conditions for which her known medications are clearly intended. Possible cognitive impairments. might be impacting medication compliance. language impairments with pt not speaking Japanese impacting compliance concerns. -The patient's underlying psychiatric condition will be actively treated. It is hoped that with treatment we will be able to improve medication compliance and also address aspects that impact compliance and improve this with appropriate interventions. CANTOR form of Invega to be continued at this time, next dose not due for another 2 weeks. Pt took meds this morning that were offered to her but given her extensive non compliance prior to, during and seeming after recent admission and lack of insight to her dx and presentation and indicating that recent hospitalization was quite helpful for her and her indicating wanting to continue her medications as was rx' at end of recent [facility] admission and were instructed to take at that discharge. I am in favor of medication over objection if pt objects to taking her medication during the course of this admission or if it is determined that pt is checking or not actually taking her medications. (3) Homeless: 09/03/19 -In the past, the patient has lived with family members. However, this is clearly not an option at the present time. The context is that the patient reportedly was in custodial for approximately a year because of her making terroristic threats against the family. While it does seem clear that the family wants to help protect her, they are unable to safely provide intermediate. Given the patient's history of neglect of self-care, medication nonadherence, and possible cognitive deficits we are going to investigate structured residential programs as part of our discharge planning. 09/03 -patient has consistently refused assistance with housing, insisting that she has a house in [place], although has not been able to provide an address and her family states this is not true. 09/06 - Patient's grandson called unit yesterday to provide additional information, stating the patient has been homeless for quite some time and there is no valid address for the patient 09/29 pt remains delusional about having a home and is agitated if this is approached or challenged in anyway 09/30 did not discuss further today as this is a point of delusion and been shown to be refractory to challenging in anyway (4) Involuntary commitment: 09/03 -patient on a 304 IOC, readmitted on a 302. We will file for a 306 conversion hearing. 09/04 - 306 hearing scheduled for 09/05; anticipate referral to [facility]. 09/05 -306 conversion granted, now here on a 304 involuntary commitment. 09/07 - Referral packet sent to [facility] on 09/06 (5) Nicotine abuse: 09/02 - Nicotine Patch 7mg topical daily resumed, and smoking cessation to be done when pt is in more apposite mental state to do so Inventory Assets Strengths: concerned family members, pleasant on approach Needs: stable housing, improved compliance to medication and treatment plan. Risk Factors Assessment Male: No : No Do You Have Access To A Gun?: No Health Problems: No Mental Health Diagnoses: Yes Substance Use Disorders: No Previous Attempt: Yes (Per family, patient denies) Previous Psychiatric Hospitalization: Yes Hopelessness: No Smoker: Yes Protective Factors Assessment : No Responsible for Young Children: No Employed: No Stable Relationships: No Supportive Family: No Good Rapport with Provider: No Interval History Identifying Information ANDREW CYR is a 63-year-old F who currently is homeless in [facility], has a history of schizoaffective disorder, bipolar type, and was admitted on 09/03/19 05:42 on a 302 involuntary commitment for psychosis, suicidal ideation, inability to provide for basic needs, and medication noncompliance. Chief Complaint " Very well, thank you". Review of Systems Sleep Information Total Hours of Sleep: 5.5 Sleep Comments: . Meal Information Percent Meal Consumed - Breakfast: 100 Percent Meal Consumed - Lunch: 0 Percent Meal Consumed - Dinner: 100 Nutrition Comment: documented from the pt. meal record Subjective Subjective Patient was seen & assessed and interval progress reviewed with nursing and social work. Staff report she isolated in her room, listening to music. On my assessment, she was seen with traffic agent #[id number]. She reports mood is "fine," denies thoughts of harming herself or others, and says she is spending all of her time in her room listening to music because she cannot understand groups. She continues to insist that she has a house in town that she can go to, now saying that is her house although yesterday she said it was her mother's house. She says she has not talked to her family because she does not have their phone numbers, but then says she spoke with them recently and they told her they would "pick me up soon." She denies side effects to medications, and reports good sleep and appetite. She wants to know when she will be leaving the hospital, and when advised that I did not know, she accepted that answer. Physical Exam Psychiatric Orientation: alert and cooperative Apperance: appropriately dressed and appropriately groomed Eye Contact: + fair eye contact Motor Behavior: steady gait and station and no abnormal motor movements Speech: normal rate/rhythm/volume of speech Speaks Bahraini Affect: euthymic affect and mood congruent with affect "Fine." Thought Process: goal directed thought process Thought Content: + delusions Suicidal Thoughts: denies suicidal thoughts Homicidal Thoughts: denies homicidal thoughts Hallucinations: no auditory hallucinations and no visual hallucinations Cognition: attention grossly intact and language grossly intact; + recent memory not intact (Asks the same questions quickly) Insight: + poor insight Judgement: + poor judgement Vital Signs (Past 24 Hours) Last Vital Signs Temp 36.4 C L 10/08/19 06:43 Pulse 69 10/08/19 06:44 Resp 18 10/08/19 06:43 BP 134/84 10/08/19 06:44 Pulse Ox 95 09/03/19 05:47 Results & Data ([facility]) Current Inpatient Medications Current Inpatient Medications: Current Inpatient Medications Acetaminophen (Tylenol) 650 mg PO Q4H PRN PRN Reason: Headache or Minor Fever Stop: 11/02/19 08:46 Al Hydrox/Mg Hydrox/Simethicone (Maalox) 30 ml PO Q4H PRN PRN Reason: GI Upset Stop: 11/02/19 08:46 Bismuth Subsalicylate (Kaopectate) 15 ml PO PRN PRN PRN Reason: Loose Stool Stop: 11/02/19 08:46 Clotrimazole (Lotrimin 1%) 1 appln EXT BID CLARISA Stop: 10/24/19 20:59 Last Admin: 10/07/19 21:39 Dose: Not Given Documented by: Docusate Sodium (Colace) 100 mg PO BID CLARISA Stop: 11/02/19 20:59 Last Admin: 10/07/19 21:37 Dose: 100 mg Documented by: Haloperidol (Haldol) 5 mg PO Q6H PRN PRN Reason: Agitation/Psychosis Stop: 11/04/19 15:13 Hydroxyzine HCl (Vistaril) 50 mg PO HSZ PRN PRN Reason: Insomnia Stop: 11/02/19 08:46 Hydroxyzine HCl (Vistaril) 25 mg PO Q4H PRN PRN Reason: Anxiety Stop: 11/02/19 08:46 Levothyroxine Sodium (Synthroid) 75 mcg PO DAILYBB CLARISA Stop: 11/02/19 07:59 Last Admin: 10/07/19 08:10 Dose: 75 mcg Documented by: [place] Carbonate (Eskalith) 450 mg PO BID CLARISA Stop: 11/02/19 08:59 Last Admin: 10/07/19 21:37 Dose: 450 mg Documented by: Magnesium Hydroxide (Milk Of Magnesia) 30 ml PO DAILY PRN PRN Reason: Constipation Stop: 11/02/19 08:46 Simvastatin (Zocor) 10 mg PO HS CLARISA Stop: 11/02/19 21:59 Last Admin: 10/07/19 21:37 Dose: 10 mg Documented by: Sodium Chloride ([place] Nasal) 1 - 2 sprays NA PRN PRN PRN Reason: Nasal Dryness/Congestion Stop: 11/02/19 08:46 Mental Health & Subst Abuse Tx Psychiatrist Name of Psychiatrist: Jackelin Psychiatrist's Date of Appointment with Psychiatrist: 09/14/19 Time of Appointment with Psychiatrist: 11:00 a.m. Psychiatric Appointment Comment: [address] [place] [address] Therapist Name of Therapist: None Vice President Sales And Marketing Name of Vice President Sales And Marketing: [employer] - Lizzy Pandey Phone Number for Vice President Sales And Marketing: [phone] Post Discharge Appointments Primary Care Physician Name Of Family Doctor: [facility] Primary Care Provider Appointment Comment: [id number], [address], [place] [address]
[2019-10-08] MEDS: DOCUSATE SODIUM 100 MG CAP PO SCH ×2 (08:55→20:26)
[2019-10-08] MEDS: LITHIUM CARBONATE 450 MG TABCR PO SCH ×2 (08:56→20:27)
[2019-10-08] MEDS: LEVOTHYROXINE SODIUM 75 MCG TABLET PO SCH (08:56)
[2019-10-08] MEDS: CLOTRIMAZOLE 1% CR 15 GM TUBE EXT SCH ×2 (08:59→20:27)
[2019-10-08] MEDS: SIMVASTATIN 10 MG TAB PO SCH (20:28)
[2019-10-09] MEDS: CLOTRIMAZOLE 1% CR 15 GM TUBE EXT SCH ×2 (08:04→20:59)
[2019-10-09] MEDS: LITHIUM CARBONATE 450 MG TABCR PO SCH ×2 (08:04→21:00)
[2019-10-09] MEDS: LEVOTHYROXINE SODIUM 75 MCG TABLET PO SCH (08:04)
[2019-10-09] MEDS: DOCUSATE SODIUM 100 MG CAP PO SCH ×2 (08:04→21:00)
--- NOTE | 2019-10-09 09:36 | Psychiatric Progress Note ---
Date of Service October 09, 2019 Impression / Recommendations Impression 63-year-old Trin[place] female with schizoaffective disorder bipolar type admitted on a 302 commitment 4 days after being discharged from this unit on 08/29 after a 27-day hospitalization. She was discharged on a 304 IOC, and returned to the ER later that same day, after police were called due to bizarre behavior at a local grocery store, and was again discharged. Readmitted several days later with psychotic symptoms including paranoia, delusions of persecution (that people were trying to poison/harm her), refusing to eat with hypokalemia, homelessness, delusions that she owns a home, and inability to provide for her own basic needs. Additionally, family members who petitioned reported she made suicidal statements and walked into traffic, and reported delusions that her son had stabbed her in her intestines were hanging out. They also reported she had been noncompliant with oral psychotropic medications, and although her patient case coordinator assisted her to fill these on the day of discharge, she did not bring them into the hospital with her and says she does not know where they are. She has repeatedly demonstrated complete inability to provide for her own basic needs outside of the hospital, including health, welfare, alf, food, and safety. Inpatient treatment is medically necessary due to the severity of her symptoms and risk for suicide if discharged. She is now on a 304 involuntary commitment, has been started on Invega Sustenna, and has been referred to the [facility] long-term inpatient treatment. Referral was made on 09/07/2019, it informed that she will be placed on the wait list once they receive the amended court order, hopefully 10/09/2019. Patient isolative in her room but remains delusional with believes that she has a home in [place] she can return to. (1) Schizoaffective disorder, bipolar type: 09/03/19 -The patient has been admitted to the locked, secured behavioral health unit and has been placed in special observation room. She is also being monitored with close observations and every 15-minute direct observation. When more stable she will be actively encouraged to participate in individual, group, and activity therapies. We will also attempt to involve the family if the patient permits us to and if they agree. - Resuming medications as was rx'd at time of discharge on 08/29 including po Invega, lithium, and Sustenna. 09/03 -continue current medications, patient is taking them. -File for 306 conversion hearing to be held 09/06/2019. She will likely need referral to the [facility] hospital due to the need for long-term inpatient treatment. -Reviewed FLP and FG from recent hospitalization 08/07/2019: Cholesterol 221, glucose 109, other values within normal limits. -Attempt to involve family is able; son-in-law Poli is petitioner and was involved in hospitalization so we will ask staff to contact him for collateral information and to determine the family's ability to assist with discharge planning and housing. She has very limited supports in the community and if they are unable to assist her with housing and care, she will likely require long-term hospitalization. -Continue private room for psychosis. 09/04 - Continue current medication regimen - patient has been compliant with medications in this structured environment - 306 conversion hearing scheduled for 09/05 - Meeting with patient case coordinator today to discuss treatment options and continue attempts to build rapport - Referral to [facility] is being recommended at this time has patient has repeatedly demonstrated an inability to care for self and provide for basic needs without the support of a structured psychiatric setting. - EKG (WNL). PPD was refused by patient - CXR ordered 09/05 -306 hearing held and patient converted to a 304 involuntary commitment. -Referred to [facility] for long-term inpatient treatment, as patient is severely ill and unable to provide for her own basic needs as a result of her mental illness, and treatment for 27 days on our acute unit was insufficient for successful transition to the community. She was at [facility] for 4 months within the past year, and did respond to treatment there, so returned to the [facility] hospital as recommended for long-term treatment of SPMI. -EKG and chest x-ray completed for [facility] referral. 09/06 - Continue current medication regimen - Referral to [facility] is being prepared, approval was reportedly received from the county - Ongoing attempt to build rapport with psychiatric patient case coordinator 09/07 - 09/09 - Continue current medication regimen - Referral sent to [facility] on 09/07/2019 for recommended long- term psychiatric hospitalization based on chronic medication/treatment non- compliance and repeated demonstration of inability to care for self outside of a structured psychiatric setting. - Pt was informed of [facility] referral today during encounter 09/10 - Continue current medication regimen - [facility] referral sent on 09/07/2019 - requesting updates regarding when case is anticipated to be reviewed and ensure information was received - Pt continues to demand to leave, unable to appreciated the severity of her condition. Ongoing concern related to patient's repeated demonstration of inability to care for self outside of a structured psychiatric setting. 09/11 - Continue current medication regimen - Awaiting acceptance at [facility]. Ongoing concern related to patient's repeated demonstration of inability to care for self outside of a structured psychiatric setting. 09/12 - 09/14 - Pt due for next injection of Invega Sustenna 234mg IM on 09/16. Oral supplementation was continued from last hospitalization due to concern for ongoing instability with regard to psychotic symptoms. In preparation for first maintenance dose, will reduce oral supplementation to 3mg qAM and discontinue oral paliperidone on 09/16. Continue lithium 450mg BID unchanged. - Awaiting replay for [facility] regarding referral. Ongoing concern related to patient's repeated demonstration of inability to care for self outside of a structured psychiatric setting. Pt has consistently not been agreeable to diversion planning as a result of fixed delusional beliefs that she has family support, that she has a house to live in, and that she has a lot of money - none of these statements confirmed to be true. 09/15 -Continue treatment plan as previously prescribed 09/16 -now fully converted to invega sustenna. 09/17 - Continue current treatment plan 09/18 - 09/20 - Continue current treatment plan - Confirmed that information from patient's hospitalization at our facility was received by [facility], but case has not yet been reviewed. Still awaiting determination of acceptance status. 09/21 - continue current meds and tx plan. Reinstitute medically necessary private room as hx of aggression, labile mood, poor ability to keep contact precautions with COVID, hx homelessness higher risk category 09/22 - 09/23 - continue current meds and tx plan. 09/24 continue current meds and tx plan. MNPR for now as less paranoid and more visible on unit. 09/25 - Continue current treatment plan - patient remains irritable, paranoid, and delusional - Continue MNPR for paranoia and irritability 09/26 - Continue current treatment plan - Still awaiting response from [facility], 3 weeks after initially referral packet was sent - Pt did reportedly complete her Medical Assistance application. Consider repeat meeting with the [facility] to discuss options for diversion planning; though these remain very limited - As review of patient's treatment plan has historically been very upsetting to the patient, discharge plans have not changed, and the therapeutic value of the review is limited - discussed with patient who did agree to review her treatment plan once a week unless there are changes in the interim. This was confirmed by multiple parties and can be reviewed with greater frequency at which time patient better tolerates the conversation and the therapeutic value is increased. 09/27 - 10/01 - Continue current treatment plan - Still awaiting response from [facility] - Pt is unwilling to consider alternative housing options - she maintains the delusion that she has a penthouse in [place] which has been confirmed to be untrue. 10/02 - Continue as above - medications renewed - Still awaiting response from [facility] - Pt maintains fixed delusions that are interfering significantly with patient's ability to adequately care for herself outside of a structured/supervised setting 10/03 - Continue current medication regimen - 30-day treatment review; treatment plan reviewed with patient who did become angry when length of stay was reviewed. Again became acutely agitated during conversation with provider today - Pt demonstrated very loud yelling, acute agitation, and inability to appropriately communicate frustration. These concerns, in addition to numerous failed attempts at discharge, continue to be evidence as to why patient is not appropriate to be discharged to the community. - Pt is not appropriate to go outside based on episodes of acute agitation and continued delusions which interfere with patient's ability to ensure appropriate behavior 10/04 - 10/05 - Continue current medication regimen - Pt remains inappropriate to go outside - Plan remains for transfer to the [facility] - no response regarding acceptance 10/06 - 10/08 -continue current plan. Amended court order to be obtained Wednesday and sent to the [facility] for acceptance and put patient on their wait list. (2) Noncompliance with medication regimen: 09/02 - Unable to clarify if pt has been taking her medications regularly in the days since discharge. She at first indicated that she was not then indicated the medications arein a bag of hers but did not indicate actually taking them. The patient also claims to not recall the names of any of her medications and reports that she does not have the conditions for which her known medications are clearly intended. Possible cognitive impairments. might be impacting medication compliance. language impairments with pt not speaking South African impacting compliance concerns. -The patient's underlying psychiatric condition will be actively treated. It is hoped that with treatment we will be able to improve medication compliance and also address aspects that impact compliance and improve this with appropriate interventions. CANTOR form of Invega to be continued at this time, next dose not due for another 2 weeks. Pt took meds this morning that were offered to her but given her extensive non compliance prior to, during and seeming after recent admission and lack of insight to her dx and presentation and indicating that recent hospitalization was quite helpful for her and her indicating wanting to continue her medications as was rx' at end of recent [facility] admission and were instructed to take at that discharge. I am in favor of medication over objection if pt objects to taking her medication during the course of this admission or if it is determined that pt is checking or not actually taking her medications. (3) Homeless: 09/03/19 -In the past, the patient has lived with family members. However, this is clearly not an option at the present time. The context is that the patient reportedly was in care home for approximately a year because of her making terroristic threats against the family. While it does seem clear that the family wants to help protect her, they are unable to safely provide alf. Given the patient's history of neglect of self-care, medication nonadherence, and possible cognitive deficits we are going to investigate structured residential programs as part of our discharge planning. 09/03 -patient has consistently refused assistance with housing, insisting that she has a house in [place], although has not been able to provide an address and her family states this is not true. 09/06 - Patient's grandson called unit yesterday to provide additional information, stating the patient has been homeless for quite some time and there is no valid address for the patient 09/29 pt remains delusional about having a home and is agitated if this is approached or challenged in anyway 09/30 did not discuss further today as this is a point of delusion and been shown to be refractory to challenging in anyway (4) Involuntary commitment: 09/03 -patient on a 304 IOC, readmitted on a 302. We will file for a 306 conversion hearing. 09/04 - 306 hearing scheduled for 09/05; anticipate referral to [facility]. 09/05 -306 conversion granted, now here on a 304 involuntary commitment. 09/07 - Referral packet sent to [facility] on 09/06 (5) Nicotine abuse: 09/02 - Nicotine Patch 7mg topical daily resumed, and smoking cessation to be done when pt is in more apposite mental state to do so Inventory Assets Strengths: concerned family members, pleasant on approach Needs: stable housing, improved compliance to medication and treatment plan. Risk Factors Assessment Male: No : No Do You Have Access To A Gun?: No Health Problems: No Mental Health Diagnoses: Yes Substance Use Disorders: No Previous Attempt: Yes (Per family, patient denies) Previous Psychiatric Hospitalization: Yes Hopelessness: No Smoker: Yes Protective Factors Assessment : No Responsible for Young Children: No Employed: No Stable Relationships: No Supportive Family: No Good Rapport with Provider: No Interval History Identifying Information ANDREW CYR is a 63-year-old F who currently is homeless in [facility], has a history of schizoaffective disorder, bipolar type, and was admitted on 09/03/19 05:42 on a 302 involuntary commitment for psychosis, suicidal ideation, inability to provide for basic needs, and medication noncompliance. Chief Complaint "I need to know when I can leave." Review of Systems Notes Pt rather emotional, unwilling to participate in full ROS - does not verbalize any physical complaints. Sleep Information Total Hours of Sleep: 3.75 Sleep Comments: . Meal Information Percent Meal Consumed - Breakfast: 100 Percent Meal Consumed - Lunch: 100 Percent Meal Consumed - Dinner: 100 Nutrition Comment: documented from the pt. meal record Subjective Subjective Patient was seen & assessed and interval progress reviewed with treatment team. Staff report the patient has been behaviorally appropriate in this structured setting for the past few days. Waiting for patient to be placed on waitlist for [facility]. Gu[place]ian-[place] African conversation was conducted with assistance from [facility] interpretive service - Benita #[id number]. Pt was seen today to assess progress since admission. Pt was observed to be pacing her room and sniffling. Pt states "I need to know when I can leave." Pt was informed that we did not yet have an anticipated discharge date. She reports "They said we would know a date for the [facility] today." Pt was informed that necessary paperwork was being managed today, but that we would not likely know a discharge date for quite some time. Pt continued to pace her room, becoming more tearful as our encounter progressed. Pt abruptly stated, "I don't want to keep talking, I'm just going to keep crying. I'm crying now. I don't want to talk." Pt was encouraged to seek staff if she had any needs throughout the day, and interview was conculded per her request. Physical Exam Psychiatric Orientation: alert and + guarded (only superficially cooperative, limited willingness for conversation) Apperance: appropriately dressed (casually, in leggings and t-shirt), + disheveled (hair appearing unkempt) and appeared stated age Eye Contact: + poor eye contact (pacing, limited engagement in interview) Motor Behavior: + psychomotor agitation (appearing restless, pacing room during interview) Speech: normal rate/rhythm/volume of speech Affect: + depressed affect and + tearful affect Mood: + depressed mood (reports feeling sad and tearful) Thought Process: + concrete thought process Thought Content: + delusions and + persecution Hallucinations: pt is observed to be speaking to herself regularly, potential to be responding to internal stimuli Cognition: attention grossly intact and language grossly intact Insight: + impaired insight Judgement: + impaired judgement Vital Signs (Past 24 Hours) Last Vital Signs Temp 36.7 C 10/09/19 06:37 Pulse 71 10/09/19 06:38 Resp 18 10/09/19 06:37 BP 146/81 H 10/09/19 06:38 Pulse Ox 95 09/03/19 05:47 Results & Data ([facility]) Current Inpatient Medications Current Inpatient Medications: Current Inpatient Medications Acetaminophen (Tylenol) 650 mg PO Q4H PRN PRN Reason: Headache or Minor Fever Stop: 11/02/19 08:46 Al Hydrox/Mg Hydrox/Simethicone (Maalox) 30 ml PO Q4H PRN PRN Reason: GI Upset Stop: 11/02/19 08:46 Bismuth Subsalicylate (Kaopectate) 15 ml PO PRN PRN PRN Reason: Loose Stool Stop: 11/02/19 08:46 Clotrimazole (Lotrimin 1%) 1 appln EXT BID CLARISA Stop: 10/24/19 20:59 Last Admin: 10/09/19 08:04 Dose: 1 appln Documented by: Docusate Sodium (Colace) 100 mg PO BID [facility] Stop: 11/02/19 20:59 Last Admin: 10/09/19 08:04 Dose: 100 mg Documented by: Haloperidol (Haldol) 5 mg PO Q6H PRN PRN Reason: Agitation/Psychosis Stop: 11/04/19 15:13 Hydroxyzine HCl (Vistaril) 50 mg PO HSZ PRN PRN Reason: Insomnia Stop: 11/02/19 08:46 Hydroxyzine HCl (Vistaril) 25 mg PO Q4H PRN PRN Reason: Anxiety Stop: 11/02/19 08:46 Levothyroxine Sodium (Synthroid) 75 mcg PO DAILYBB [facility] Stop: 11/02/19 07:59 Last Admin: 10/09/19 08:04 Dose: 75 mcg Documented by: [place] Carbonate (Eskalith) 450 mg PO BID [facility] Stop: 11/02/19 08:59 Last Admin: 10/09/19 08:04 Dose: 450 mg Documented by: Magnesium Hydroxide (Milk Of Magnesia) 30 ml PO DAILY PRN PRN Reason: Constipation Stop: 11/02/19 08:46 Paliperidone Palmitate (Invega Sustenna) 234 mg IM Q4WK [facility] Stop: 11/14/19 08:59 Simvastatin (Zocor) 10 mg PO HS [facility] Stop: 11/02/19 21:59 Last Admin: 10/08/19 20:28 Dose: 10 mg Documented by: Sodium Chloride ([place] Nasal) 1 - 2 sprays NA PRN PRN PRN Reason: Nasal Dryness/Congestion Stop: 11/02/19 08:46 Mental Health & Subst Abuse Tx Psychiatrist Name of Psychiatrist: Jackelin Psychiatrist's Date of Appointment with Psychiatrist: 09/14/19 Time of Appointment with Psychiatrist: 11:00 a.m. Psychiatric Appointment Comment: [id number] [facility], [place] [id number] Therapist Name of Therapist: None Clinical Documentation Specialist Name of Clinical Documentation Specialist: [employer] - Lizzy Pandey Phone Number for Clinical Documentation Specialist: [phone] Post Discharge Appointments Primary Care Physician Name Of Family Doctor: [facility] Primary Care Provider Appointment Comment: [id number], [address], [place] [address]
[2019-10-09] MEDS: SIMVASTATIN 10 MG TAB PO SCH (20:58)
[2019-10-10] MEDS: LITHIUM CARBONATE 450 MG TABCR PO SCH ×2 (08:58→20:36)
[2019-10-10] MEDS: CLOTRIMAZOLE 1% CR 15 GM TUBE EXT SCH ×2 (08:58→20:37)
[2019-10-10] MEDS: LEVOTHYROXINE SODIUM 75 MCG TABLET PO SCH (08:58)
[2019-10-10] MEDS: DOCUSATE SODIUM 100 MG CAP PO SCH ×2 (08:58→20:36)
--- NOTE | 2019-10-10 09:52 | Psychiatric Progress Note ---
Date of Service October 10, 2019 Impression / Recommendations Impression 63-year-old Norwegian female with schizoaffective disorder bipolar type admitted on a 302 commitment 4 days after being discharged from this unit on 08/29 after a 27-day hospitalization. She was discharged on a 304 IOC, and returned to the ER later that same day, after police were called due to bizarre behavior at a local grocery store, and was again discharged. Readmitted several days later with psychotic symptoms including paranoia, delusions of persecution (that people were trying to poison/harm her), refusing to eat with hypokalemia, homelessness, delusions that she owns a home, and inability to provide for her own basic needs. Additionally, family members who petitioned reported she made suicidal statements and walked into traffic, and reported delusions that her son had stabbed her in her intestines were hanging out. They also reported she had been noncompliant with oral psychotropic medications, and although her casework specialist assisted her to fill these on the day of discharge, she did not bring them into the hospital with her and says she does not know where they are. She has repeatedly demonstrated complete inability to provide for her own basic needs outside of the hospital, including health, welfare, fdc, food, and safety. Inpatient treatment is medically necessary due to the severity of her symptoms and risk for suicide if discharged. She is now on a 304 involuntary commitment, has been started on Invega Sustenna, and has been referred to the [facility] long-term inpatient treatment. Referral was made on 09/07/2019, it informed that she will be placed on the wait list once they receive the amended court order, hopefully 10/09/2019. Patient isolative in her room but remains delusional with believes that she has a home in [place] she can return to. (1) Schizoaffective disorder, bipolar type: 09/03/19 -The patient has been admitted to the locked, secured behavioral health unit and has been placed in special observation room. She is also being monitored with close observations and every 15-minute direct observation. When more stable she will be actively encouraged to participate in individual, group, and activity therapies. We will also attempt to involve the family if the patient permits us to and if they agree. - Resuming medications as was rx'd at time of discharge on 08/29 including po Invega, lithium, and Sustenna. 09/03 -continue current medications, patient is taking them. -File for 306 conversion hearing to be held 09/06/2019. She will likely need referral to the [facility] due to the need for long-term inpatient treatment. -Reviewed FLP and FG from recent hospitalization 08/07/2019: Cholesterol 221, glucose 109, other values within normal limits. -Attempt to involve family is able; son-in-law Poli is petitioner and was involved in hospitalization so we will ask staff to contact him for collateral information and to determine the family's ability to assist with discharge planning and housing. She has very limited supports in the community and if they are unable to assist her with housing and care, she will likely require long-term hospitalization. -Continue private room for psychosis. 09/04 - Continue current medication regimen - patient has been compliant with medications in this structured environment - 306 conversion hearing scheduled for 09/05 - Meeting with casework specialist today to discuss treatment options and continue attempts to build rapport - Referral to [facility] is being recommended at this time has patient has repeatedly demonstrated an inability to care for self and provide for basic needs without the support of a structured psychiatric setting. - EKG (WNL). PPD was refused by patient - CXR ordered 09/05 -306 hearing held and patient converted to a 304 involuntary commitment. -Referred to [facility] for long-term inpatient treatment, as patient is severely ill and unable to provide for her own basic needs as a result of her mental illness, and treatment for 27 days on our acute unit was insufficient for successful transition to the community. She was at [facility] for 4 months within the past year, and did respond to treatment there, so returned to the [facility] as recommended for long-term treatment of SPMI. -EKG and chest x-ray completed for [facility] referral. 09/06 - Continue current medication regimen - Referral to [facility] is being prepared, approval was reportedly received from the county - Ongoing attempt to build rapport with psychiatric casework specialist 09/07 - 09/09 - Continue current medication regimen - Referral sent to [facility] on 09/07/2019 for recommended long- term psychiatric hospitalization based on chronic medication/treatment non- compliance and repeated demonstration of inability to care for self outside of a structured psychiatric setting. - Pt was informed of [facility] referral today during encounter 09/10 - Continue current medication regimen - [facility] referral sent on 09/07/2019 - requesting updates regarding when case is anticipated to be reviewed and ensure information was received - Pt continues to demand to leave, unable to appreciated the severity of her condition. Ongoing concern related to patient's repeated demonstration of inability to care for self outside of a structured psychiatric setting. 09/11 - Continue current medication regimen - Awaiting acceptance at [facility]. Ongoing concern related to patient's repeated demonstration of inability to care for self outside of a structured psychiatric setting. 09/12 - 09/14 - Pt due for next injection of Invega Sustenna 234mg IM on 09/16. Oral supplementation was continued from last hospitalization due to concern for ongoing instability with regard to psychotic symptoms. In preparation for first maintenance dose, will reduce oral supplementation to 3mg qAM and discontinue oral paliperidone on 09/16. Continue lithium 450mg BID unchanged. - Awaiting replay for [facility] regarding referral. Ongoing concern related to patient's repeated demonstration of inability to care for self outside of a structured psychiatric setting. Pt has consistently not been agreeable to diversion planning as a result of fixed delusional beliefs that she has family support, that she has a house to live in, and that she has a lot of money - none of these statements confirmed to be true. 09/15 -Continue treatment plan as previously prescribed 09/16 -now fully converted to invega sustenna. 09/17 - Continue current treatment plan 09/18 - 09/20 - Continue current treatment plan - Confirmed that information from patient's hospitalization at our facility was received by [facility], but case has not yet been reviewed. Still awaiting determination of acceptance status. 09/21 - continue current meds and tx plan. Reinstitute medically necessary private room as hx of aggression, labile mood, poor ability to keep contact precautions with COVID, hx homelessness higher risk category 09/22 - 09/23 - continue current meds and tx plan. 09/24 continue current meds and tx plan. MNPR for now as less paranoid and more visible on unit. 09/25 - Continue current treatment plan - patient remains irritable, paranoid, and delusional - Continue MNPR for paranoia and irritability 09/26 - Continue current treatment plan - Still awaiting response from [facility], 3 weeks after initially referral packet was sent - Pt did reportedly complete her Medical Assistance application. Consider repeat meeting with the [facility] to discuss options for diversion planning; though these remain very limited - As review of patient's treatment plan has historically been very upsetting to the patient, discharge plans have not changed, and the therapeutic value of the review is limited - discussed with patient who did agree to review her treatment plan once a week unless there are changes in the interim. This was confirmed by multiple parties and can be reviewed with greater frequency at which time patient better tolerates the conversation and the therapeutic value is increased. 09/27 - 10/01 - Continue current treatment plan - Still awaiting response from [facility] - Pt is unwilling to consider alternative housing options - she maintains the delusion that she has a penthouse in [place] which has been confirmed to be untrue. 10/02 - Continue as above - medications renewed - Still awaiting response from [facility] - Pt maintains fixed delusions that are interfering significantly with patient's ability to adequately care for herself outside of a structured/supervised setting 10/03 - Continue current medication regimen - 30-day treatment review; treatment plan reviewed with patient who did become angry when length of stay was reviewed. Again became acutely agitated during conversation with provider today - Pt demonstrated very loud yelling, acute agitation, and inability to appropriately communicate frustration. These concerns, in addition to numerous failed attempts at discharge, continue to be evidence as to why patient is not appropriate to be discharged to the community. - Pt is not appropriate to go outside based on episodes of acute agitation and continued delusions which interfere with patient's ability to ensure appropriate behavior 10/04 - 10/05 - Continue current medication regimen - Pt remains inappropriate to go outside - Plan remains for transfer to the [facility] - no response regarding acceptance 10/06 - 10/09 -continue current plan. Amended court order to be obtained Wednesday and sent to the [facility] for acceptance and put patient on their wait list. (2) Noncompliance with medication regimen: 09/02 - Unable to clarify if pt has been taking her medications regularly in the days since discharge. She at first indicated that she was not then indicated the medications arein a bag of hers but did not indicate actually taking them. The patient also claims to not recall the names of any of her medications and reports that she does not have the conditions for which her known medications are clearly intended. Possible cognitive impairments. might be impacting medication compliance. language impairments with pt not speaking Australian impacting compliance concerns. -The patient's underlying psychiatric condition will be actively treated. It is hoped that with treatment we will be able to improve medication compliance and also address aspects that impact compliance and improve this with appropriate interventions. CANTOR form of Invega to be continued at this time, next dose not due for another 2 weeks. Pt took meds this morning that were offered to her but given her extensive non compliance prior to, during and seeming after recent admission and lack of insight to her dx and presentation and indicating that recent hospitalization was quite helpful for her and her indicating wanting to continue her medications as was rx' at end of recent [facility] admission and were instructed to take at that discharge. I am in favor of medication over objection if pt objects to taking her medication during the course of this admission or if it is determined that pt is checking or not actually taking her medications. (3) Homeless: 09/03/19 -In the past, the patient has lived with family members. However, this is clearly not an option at the present time. The context is that the patient reportedly was in [facility] for approximately a year because of her making terroristic threats against the family. While it does seem clear that the family wants to help protect her, they are unable to safely provide fdc. Given the patient's history of neglect of self-care, medication nonadherence, and possible cognitive deficits we are going to investigate structured residential programs as part of our discharge planning. 09/03 -patient has consistently refused assistance with housing, insisting that she has a house in [place], although has not been able to provide an address and her family states this is not true. 09/06 - Patient's grandson called unit yesterday to provide additional information, stating the patient has been homeless for quite some time and there is no valid address for the patient 09/29 pt remains delusional about having a home and is agitated if this is approached or challenged in anyway 09/30 did not discuss further today as this is a point of delusion and been shown to be refractory to challenging in anyway (4) Involuntary commitment: 09/03 -patient on a 304 IOC, readmitted on a 302. We will file for a 306 conversion hearing. 09/04 - 306 hearing scheduled for 09/05; anticipate referral to [facility]. 09/05 -306 conversion granted, now here on a 304 involuntary commitment. 09/07 - Referral packet sent to [facility] on 09/06 (5) Nicotine abuse: 09/02 - Nicotine Patch 7mg topical daily resumed, and smoking cessation to be done when pt is in more apposite mental state to do so Inventory Assets Strengths: concerned family members, pleasant on approach Needs: stable housing, improved compliance to medication and treatment plan. Risk Factors Assessment Male: No : No Do You Have Access To A Gun?: No Health Problems: No Mental Health Diagnoses: Yes Substance Use Disorders: No Previous Attempt: Yes (Per family, patient denies) Previous Psychiatric Hospitalization: Yes Hopelessness: No Smoker: Yes Protective Factors Assessment : No Responsible for Young Children: No Employed: No Stable Relationships: No Supportive Family: No Good Rapport with Provider: No Interval History Identifying Information ANDREW CYR is a 63-year-old F who currently is homeless in [facility], has a history of schizoaffective disorder, bipolar type, and was admitted on 09/03/19 05:42 on a 302 involuntary commitment for psychosis, suicidal ideation, inability to provide for basic needs, and medication noncompliance. Chief Complaint "Good." Review of Systems Notes Constitutional: denied Cardiovascular: denied Respiratory: denied Gastrointestinal: denied Neurological: denied Psychiatric: denies symptoms other than stated above Total of at least 10 systems reviewed, pertinent positives as above and in HPI. Sleep Information Total Hours of Sleep: 5 Sleep Comments: pt on q-15 minute checks Meal Information Percent Meal Consumed - Breakfast: 100 Percent Meal Consumed - Lunch: 100 Percent Meal Consumed - Dinner: 100 Nutrition Comment: documented from the pt. meal record Subjective Subjective Patient was seen & assessed and interval progress reviewed with nursing and social work. Staff report the patient was tearful for most of the day yesterday, reporting sadness and desires to be discharged "home." Pt was seen today to assess progress since admission. [place] Islander-Australian conversation was conducted with assistance from [facility] interpretive service Katherine Monte #[id number]. Pt reports she is "good" today. She states her sleep and appetite have been "good". Pt denies any physical concerns at this time. Pt was commended on the Australian she is learning, as much she attempted phrases in Australian first for much of our conversation. Pt was asked if there were any [place] Islander phrases she could teach this provider so that we could better communicate with her on the unit. She said "I don't know." Pt states she has been keeping busy "walking, hearing music, reading parts of the Bible. I've been good." Pt denied other needs or concerns at this time. Physical Exam Psychiatric Orientation: alert and cooperative (superficially ) Apperance: appropriately dressed (casually, in jeans and a t-shirt); + inappropriately groomed (hair appearing unkempt) Eye Contact: good eye contact Motor Behavior: no abnormal motor movements (observed while sitting on edge of bed) Speech: normal rate/rhythm/volume of speech (brief responses to questions) Affect: + blunted affect (subdued, but no longer crying and depressed); no tearful affect Mood: no depressed mood ("Good") Thought Process: goal directed thought process and + concrete thought process Thought Content: + delusions (maintains fixed delusions regarding housing, but not preoccupied with this) Suicidal Thoughts: denies suicidal thoughts Homicidal Thoughts: denies homicidal thoughts Hallucinations: observed numerous times to be talking and gesturing to herself while in her room alone. Cognition: attention grossly intact and language grossly intact Insight: + impaired insight Judgement: + impaired judgement Vital Signs (Past 24 Hours) Last Vital Signs Temp 36.5 C 10/10/19 06:51 Pulse 67 10/10/19 06:52 Resp 18 10/10/19 06:51 BP 152/88 H 10/10/19 06:52 Pulse Ox 95 09/03/19 05:47 Results & Data ([facility]) Current Inpatient Medications Current Inpatient Medications: Current Inpatient Medications Acetaminophen (Tylenol) 650 mg PO Q4H PRN PRN Reason: Headache or Minor Fever Stop: 11/02/19 08:46 Al Hydrox/Mg Hydrox/Simethicone (Maalox) 30 ml PO Q4H PRN PRN Reason: GI Upset Stop: 11/02/19 08:46 Bismuth Subsalicylate (Kaopectate) 15 ml PO PRN PRN PRN Reason: Loose Stool Stop: 11/02/19 08:46 Clotrimazole (Lotrimin 1%) 1 appln EXT BID CLARISA Stop: 10/24/19 20:59 Last Admin: 10/10/19 08:58 Dose: 1 appln Documented by: Docusate Sodium (Colace) 100 mg PO BID CLARISA Stop: 11/02/19 20:59 Last Admin: 10/10/19 08:58 Dose: 100 mg Documented by: Haloperidol (Haldol) 5 mg PO Q6H PRN PRN Reason: Agitation/Psychosis Stop: 11/04/19 15:13 Hydroxyzine HCl (Vistaril) 50 mg PO HSZ PRN PRN Reason: Insomnia Stop: 11/02/19 08:46 Hydroxyzine HCl (Vistaril) 25 mg PO Q4H PRN PRN Reason: Anxiety Stop: 11/02/19 08:46 Levothyroxine Sodium (Synthroid) 75 mcg PO DAILYBB CLARISA Stop: 11/02/19 07:59 Last Admin: 10/10/19 08:58 Dose: 75 mcg Documented by: [place] Carbonate (Eskalith) 450 mg PO BID CLARISA Stop: 11/02/19 08:59 Last Admin: 10/10/19 08:58 Dose: 450 mg Documented by: Magnesium Hydroxide (Milk Of Magnesia) 30 ml PO DAILY PRN PRN Reason: Constipation Stop: 11/02/19 08:46 Paliperidone Palmitate (Invega Sustenna) 234 mg IM Q4WK CLARISA Stop: 11/14/19 08:59 Simvastatin (Zocor) 10 mg PO HS CLARISA Stop: 11/02/19 21:59 Last Admin: 10/09/19 20:58 Dose: 10 mg Documented by: Sodium Chloride ([place] Nasal) 1 - 2 sprays NA PRN PRN PRN Reason: Nasal Dryness/Congestion Stop: 11/02/19 08:46 Mental Health & Subst Abuse Tx Psychiatrist Name of Psychiatrist: Jackelin Psychiatrist's Date of Appointment with Psychiatrist: 09/14/19 Time of Appointment with Psychiatrist: 11:00 a.m. Psychiatric Appointment Comment: [address], [place] [address] Therapist Name of Therapist: None Die Trimmer Name of Die Trimmer: [facility] - Lizzy Pandey Phone Number for Die Trimmer: [phone] Post Discharge Appointments Primary Care Physician Name Of Family Doctor: [facility] Primary Care Provider Appointment Comment: [address], [address], [place] [address]
[2019-10-10] MEDS: SIMVASTATIN 10 MG TAB PO SCH (20:37)
[2019-10-11] MEDS: LEVOTHYROXINE SODIUM 75 MCG TABLET PO SCH (08:09)
[2019-10-11] MEDS: DOCUSATE SODIUM 100 MG CAP PO SCH ×2 (08:09→21:05)
[2019-10-11] MEDS: LITHIUM CARBONATE 450 MG TABCR PO SCH ×2 (08:09→21:05)
[2019-10-11] MEDS: CLOTRIMAZOLE 1% CR 15 GM TUBE EXT SCH ×2 (08:10→21:05)
--- NOTE | 2019-10-11 09:45 | Psychiatric Progress Note ---
Date of Service October 11, 2019 Impression / Recommendations Impression 63-year-old Israeli female with schizoaffective disorder bipolar type admitted on a 302 commitment 4 days after being discharged from this unit on 08/29 after a 27-day hospitalization. She was discharged on a 304 IOC, and returned to the ER later that same day, after police were called due to bizarre behavior at a local grocery store, and was again discharged. Readmitted several days later with psychotic symptoms including paranoia, delusions of persecution (that people were trying to poison/harm her), refusing to eat with hypokalemia, homelessness, delusions that she owns a home, and inability to provide for her own basic needs. Additionally, family members who petitioned reported she made suicidal statements and walked into traffic, and reported delusions that her son had stabbed her in her intestines were hanging out. They also reported she had been noncompliant with oral psychotropic medications, and although her egg caser assisted her to fill these on the day of discharge, she did not bring them into the hospital with her and says she does not know where they are. She has repeatedly demonstrated complete inability to provide for her own basic needs outside of the hospital, including health, welfare, fpc, food, and safety. Inpatient treatment is medically necessary due to the severity of her symptoms and risk for suicide if discharged. She is now on a 304 involuntary commitment, has been started on Invega Sustenna, and has been referred to the [facility] long-term inpatient treatment. Referral was made on 09/07/2019, it informed that she will be placed on the wait list once they receive the amended court order, hopefully 10/09/2019. Patient isolative in her room but remains delusional with believes that she has a home in [place] she can return to, and therefore continues to be uncooperative with appropriate discharge planning. (1) Schizoaffective disorder, bipolar type: 09/03/19 -The patient has been admitted to the locked, secured behavioral health unit and has been placed in special observation room. She is also being monitored with close observations and every 15-minute direct observation. When more stable she will be actively encouraged to participate in individual, group, and activity therapies. We will also attempt to involve the family if the patient permits us to and if they agree. - Resuming medications as was rx'd at time of discharge on 08/29 including po Invega, lithium, and Sustenna. 09/03 -continue current medications, patient is taking them. -File for 306 conversion hearing to be held 09/06/2019. She will likely need referral to the the [facility] due to the need for long-term inpatient treatment. -Reviewed FLP and FG from recent hospitalization 08/07/2019: Cholesterol 221, glucose 109, other values within normal limits. -Attempt to involve family is able; son-in-law Poli is petitioner and was involved in hospitalization so we will ask staff to contact him for collateral information and to determine the family's ability to assist with discharge planning and housing. She has very limited supports in the community and if they are unable to assist her with housing and care, she will likely require long-term hospitalization. -Continue private room for psychosis. 09/04 - Continue current medication regimen - patient has been compliant with med ications in this structured environment - 306 conversion hearing scheduled for 09/05 - Meeting with egg caser today to discuss treatment options and continue attempts to build rapport - Referral to [facility] is being recommended at this time has patient has repeatedly demonstrated an inability to care for self and provide for basic needs without the support of a structured psychiatric setting. - EKG (WNL). PPD was refused by patient - CXR ordered 09/05 -306 hearing held and patient converted to a 304 involuntary commitment. -Referred to [facility] for long-term inpatient treatment, as patient is severely ill and unable to provide for her own basic needs as a result of her mental illness, and treatment for 27 days on our acute unit was insufficient for successful transition to the community. She was at [facility] for 4 months within the past year, and did respond to treatment there, so returned to the the [facility] as recommended for long-term treatment of SPMI. -EKG and chest x-ray completed for state hospital referral. 09/06 - Continue current medication regimen - Referral to [facility] is being prepared, approval was reportedly received from the [facility] - Ongoing attempt to build rapport with psychiatric egg caser 09/07 - 09/09 - Continue current medication regimen - Referral sent to [facility] on 09/07/2019 for recommended long- term psychiatric hospitalization based on chronic medication/treatment non- compliance and repeated demonstration of inability to care for self outside of a structured psychiatric setting. - Pt was informed of [facility] referral today during encounter 09/10 - Continue current medication regimen - [place] referral sent on 09/07/2019 - requesting updates regarding when case is anticipated to be reviewed and ensure information was received - Pt continues to demand to leave, unable to appreciated the severity of her condition. Ongoing concern related to patient's repeated demonstration of inability to care for self outside of a structured psychiatric setting. 09/11 - Continue current medication regimen - Awaiting acceptance at [facility]. Ongoing concern related to patient's repeated demonstration of inability to care for self outside of a structured psychiatric setting. 09/12 - 09/14 - Pt due for next injection of Invega Sustenna 234mg IM on 09/16. Oral supplementation was continued from last hospitalization due to concern for ongoing instability with regard to psychotic symptoms. In preparation for first maintenance dose, will reduce oral supplementation to 3mg qAM and discontinue oral paliperidone on 09/16. Continue lithium 450mg BID unchanged. - Awaiting replay for [facility] regarding referral. Ongoing concern related to patient's repeated demonstration of inability to care for self outside of a structured psychiatric setting. Pt has consistently not been agreeable to diversion planning as a result of fixed delusional beliefs that she has family support, that she has a house to live in, and that she has a lot of money - none of these statements confirmed to be true. 09/15 -Continue treatment plan as previously prescribed 09/16 -now fully converted to invega sustenna. 09/17 - Continue current treatment plan 09/18 - 09/20 - Continue current treatment plan - Confirmed that information from patient's hospitalization at our facility was received by [facility], but case has not yet been reviewed. Still awaiting determination of acceptance status. 09/21 - continue current meds and tx plan. Reinstitute medically necessary private room as hx of aggression, labile mood, poor ability to keep contact precautions with COVID, hx homelessness higher risk category 09/22 - 09/23 - continue current meds and tx plan. 09/24 continue current meds and tx plan. MNPR for now as less paranoid and more visible on unit. 09/25 - Continue current treatment plan - patient remains irritable, paranoid, and delusional - Continue MNPR for paranoia and irritability 09/26 - Continue current treatment plan - Still awaiting response from [facility], 3 weeks after initially referral packet was sent - Pt did reportedly complete her Medical Assistance application. Consider repeat meeting with the county to discuss options for diversion planning; though these remain very limited - As review of patient's treatment plan has historically been very upsetting to the patient, discharge plans have not changed, and the therapeutic value of the review is limited - discussed with patient who did agree to review her treatment plan once a week unless there are changes in the interim. This was confirmed by multiple parties and can be reviewed with greater frequency at which time patient better tolerates the conversation and the therapeutic value is increased. 09/27 - 10/01 - Continue current treatment plan - Still awaiting response from [facility] - Pt is unwilling to consider alternative housing options - she maintains the delusion that she has a penthouse in [place] which has been confirmed to be untrue. 10/02 - Continue as above - medications renewed - Still awaiting response from [facility] - Pt maintains fixed delusions that are interfering significantly with patient's ability to adequately care for herself outside of a structured/supervised setting 10/03 - Continue current medication regimen - 30-day treatment review; treatment plan reviewed with patient who did become angry when length of stay was reviewed. Again became acutely agitated during conversation with provider today - Pt demonstrated very loud yelling, acute agitation, and inability to appropriately communicate frustration. These concerns, in addition to numerous failed attempts at discharge, continue to be evidence as to why patient is not appropriate to be discharged to the community. - Pt is not appropriate to go outside based on episodes of acute agitation a nd continued delusions which interfere with patient's ability to ensure appropriate behavior 10/04 - 10/05 - Continue current medication regimen - Pt remains inappropriate to go outside - Plan remains for transfer to the [facility] - no response regarding acceptance 10/06 - 10/07 -continue current plan. Amended court order to be obtained Wednesday and sent to the [facility] for acceptance and put patient on their wait list. 10/08 - 10/10 - continue current plan. Discharge plan continues to be placement at [facility] - Pt continues to be inappropriate to go outside based on continued demands for discharge, delusional thought content, and concerns for elopement risk if taken outside the hospital setting (2) Noncompliance with medication regimen: 09/02 - Unable to clarify if pt has been taking her medications regularly in the days since discharge. She at first indicated that she was not then indicated the medications arein a bag of hers but did not indicate actually taking them. The patient also claims to not recall the names of any of her medications and reports that she does not have the conditions for which her known medications are clearly intended. Possible cognitive impairments. might be impacting medication compliance. language impairments with pt not speaking Greenlandic impacting compliance concerns. -The patient's underlying psychiatric condition will be actively treated. It is hoped that with treatment we will be able to improve medication compliance and also address aspects that impact compliance and improve this with appropriate interventions. CANTOR form of Invega to be continued at this time, next dose not due for another 2 weeks. Pt took meds this morning that were offered to her but given her extensive non compliance prior to, during and seeming after recent admission and lack of insight to her dx and presentation and indicating that recent hospitalization was quite helpful for her and her indicating wanting to continue her medications as was rx' at end of recent [facility] admission and were instructed to take at that discharge. I am in favor of medication over objection if pt objects to taking her medication during the course of this admission or if it is determined that pt is checking or not actually taking her medications. (3) Homeless: 09/03/19 -In the past, the patient has lived with family members. However, this is clearly not an option at the present time. The context is that the patient reportedly was in long term for approximately a year because of her making terroristic threats against the family. While it does seem clear that the family wants to help protect her, they are unable to safely provide fpc. Given the patient's history of neglect of self-care, medication nonadherence, and possible cognitive deficits we are going to investigate structured residential programs as part of our discharge planning. 09/03 -patient has consistently refused assistance with housing, insisting that she has a house in [place], although has not been able to provide an address and her family states this is not true. 09/06 - Patient's grandson called unit yesterday to provide additional information, stating the patient has been homeless for quite some time and there is no valid address for the patient 09/29 pt remains delusional about having a home and is agitated if this is approached or challenged in anyway 09/30 did not discuss further today as this is a point of delusion and been shown to be refractory to challenging in anyway (4) Involuntary commitment: 09/03 -patient on a 304 IOC, readmitted on a 302. We will file for a 306 conversion hearing. 09/04 - 306 hearing scheduled for 09/05; anticipate referral to [facility]. 09/05 -306 conversion granted, now here on a 304 involuntary commitment. 09/07 - Referral packet sent to [facility] on 09/06 (5) Nicotine abuse: 09/02 - Nicotine Patch 7mg topical daily resumed, and smoking cessation to be done when pt is in more apposite mental state to do so Inventory Assets Strengths: concerned family members, pleasant on approach Needs: stable housing, improved compliance to medication and treatment plan. Risk Factors Assessment Male: No : No Do You Have Access To A Gun?: No Health Problems: No Mental Health Diagnoses: Yes Substance Use Disorders: No Previous Attempt: Yes (Per family, patient denies) Previous Psychiatric Hospitalization: Yes Hopelessness: No Smoker: Yes Protective Factors Assessment : No Responsible for Young Children: No Employed: No Stable Relationships: No Supportive Family: No Good Rapport with Provider: No Interval History Identifying Information ANDREW CYR is a 64-year-old F who currently is homeless in [place] area, has a history of schizoaffective disorder, bipolar type, and was admitted on 09/03/19 05:42 on a 302 involuntary commitment for psychosis, suicidal ideation, inability to provide for basic needs, and medication noncompliance. Chief Complaint "Good. Thank you." Review of Systems Notes Constitutional: denied Cardiovascular: denied Respiratory: denied Gastrointestinal: denied Neurological: denied Psychiatric: denies symptoms other than stated above Total of at least 10 systems reviewed, pertinent positives as above and in HPI. Sleep Information Total Hours of Sleep: 5.25 Sleep Comments: pt on q-15 minute checks Meal Information Percent Meal Consumed - Breakfast: 100 Percent Meal Consumed - Lunch: 100 Percent Meal Consumed - Dinner: 100 Nutrition Comment: documented from the pt. meal record Subjective Subjective Patient was seen & assessed and interval progress reviewed with treatment team. Staff report the patient continues to have episodes of tearfulness during the day. Today is patient's birthday, and a special treat is being requested from the kitchen. Pt was seen today to assess progress since admission, visit held in conjunction with treatment plan review - which patient has agreed to reduce to only once weekly. South African-[place]ic conversation was conducted with assistance from [facility] interpretive service - Joseline #[id number]. This provider greeted patient by saying 'Happy Birthday' in South African, and patient responded with a very excited "Nan!" Pt reports she is "good. Thank you" and denies any concerns today. Pt did agree to reviewing her treatment plan today, stating "I will listen." Pt became more irritable as treatment plan was reviewed, continuing to verbalize desire for discharge. Pt stated "I don't need to go to any other hospital. If I cannot get the treatment I need here, then I would like to go home. If I needed another hospital, my family would have taken me there." Pt was reminded that there has been no change to her treatment plan, that discharge to [facility] is still anticipated, and that the length of stay is estimated to be 20-40 days. Pt states, "I don't know why they listen to the doctor, 40 more days?" Pt was informed that we generally request a treat from the kitchen for patient's birthdays, and inquired what she may like today. Pt responded with "I would like to be discharged, and cake." Pt denied other needs at this time. Physical Exam Psychiatric Orientation: alert, oriented x 3 and + guarded (initially superficially cooperative, but episodes of irritability) Apperance: appropriately dressed (casually, in jeans and a t-shirt), appropriately groomed and appeared stated age Eye Contact: good eye contact Motor Behavior: no abnormal motor movements (observed while sitting on edge of the bed) Speech: normal rate/rhythm/volume of speech Affect: + blunted affect Initially excited when discussing birthday, but became irritable when discussing estimated length of stay and that she would not be discharged Mood: no depressed mood ("Good") Thought Process: goal directed thought process and + concrete thought process Thought Content: + delusions Hallucinations: pt continues to be observed to be speaking to herself when in her room alone Cognition: attention grossly intact and language grossly intact Estimated Intelligence: consistent with education level Insight: + severely impaired insight Judgement: + severely impaired judgement Vital Signs (Past 24 Hours) Last Vital Signs Temp 36.4 C L 10/11/19 06:34 Pulse 72 10/11/19 06:34 Resp 18 10/11/19 06:34 BP 145/84 H 10/11/19 06:34 Pulse Ox 95 09/03/19 05:47 Results & Data ([facility]) Current Inpatient Medications Current Inpatient Medications: Current Inpatient Medications Acetaminophen (Tylenol) 650 mg PO Q4H PRN PRN Reason: Headache or Minor Fever Stop: 11/02/19 08:46 Al Hydrox/Mg Hydrox/Simethicone (Maalox) 30 ml PO Q4H PRN PRN Reason: GI Upset Stop: 11/02/19 08:46 Bismuth Subsalicylate (Kaopectate) 15 ml PO PRN PRN PRN Reason: Loose Stool Stop: 11/02/19 08:46 Clotrimazole (Lotrimin 1%) 1 appln EXT BID [facility] Stop: 10/24/19 20:59 Last Admin: 10/11/19 08:10 Dose: 1 appln Documented by: Docusate Sodium (Colace) 100 mg PO BID [facility] Stop: 11/02/19 20:59 Last Admin: 10/11/19 08:09 Dose: 100 mg Documented by: Haloperidol (Haldol) 5 mg PO Q6H PRN PRN Reason: Agitation/Psychosis Stop: 11/04/19 15:13 Hydroxyzine HCl (Vistaril) 50 mg PO HSZ PRN PRN Reason: Insomnia Stop: 11/02/19 08:46 Hydroxyzine HCl (Vistaril) 25 mg PO Q4H PRN PRN Reason: Anxiety Stop: 11/02/19 08:46 Levothyroxine Sodium (Synthroid) 75 mcg PO DAILYBB [facility] Stop: 11/02/19 07:59 Last Admin: 10/11/19 08:09 Dose: 75 mcg Documented by: Lead Carbonate (Eskalith) 450 mg PO BID [facility] Stop: 11/02/19 08:59 Last Admin: 10/11/19 08:09 Dose: 450 mg Documented by: Magnesium Hydroxide (Milk Of Magnesia) 30 ml PO DAILY PRN PRN Reason: Constipation Stop: 11/02/19 08:46 Paliperidone Palmitate (Invega Sustenna) 234 mg IM Q4WK [facility] Stop: 11/14/19 08:59 Simvastatin (Zocor) 10 mg PO HS CLARISA Stop: 11/02/19 21:59 Last Admin: 10/10/19 20:37 Dose: 10 mg Documented by: Sodium Chloride ([place] Nasal) 1 - 2 sprays NA PRN PRN PRN Reason: Nasal Dryness/Congestion Stop: 11/02/19 08:46 Mental Health & Subst Abuse Tx Psychiatrist Name of Psychiatrist: Jackelin Psychiatrist's Date of Appointment with Psychiatrist: 09/14/19 Time of Appointment with Psychiatrist: 11:00 a.m. Psychiatric Appointment Comment: [address] [place] [address] Therapist Name of Therapist: None Collections Manager Name of Collections Manager: [employer] - Lizzy Pandey Phone Number for Collections Manager: [phone] Post Discharge Appointments Primary Care Physician Name Of Family Doctor: [facility] Primary Care Provider Appointment Comment: [address] [facility] ([place], [place]), [address], [place] [address]
[2019-10-11] MEDS: SIMVASTATIN 10 MG TAB PO SCH (21:05)
[2019-10-12] MEDS: DOCUSATE SODIUM 100 MG CAP PO SCH ×2 (07:59→20:41)
[2019-10-12] MEDS: LEVOTHYROXINE SODIUM 75 MCG TABLET PO SCH (07:59)
[2019-10-12] MEDS: LITHIUM CARBONATE 450 MG TABCR PO SCH ×2 (07:59→20:41)
[2019-10-12] MEDS: CLOTRIMAZOLE 1% CR 15 GM TUBE EXT SCH ×2 (08:02→20:42)
--- NOTE | 2019-10-12 08:59 | Psychiatric Progress Note ---
Date of Service October 12, 2019 Impression / Recommendations Impression 63-year-old Northern Irish female with schizoaffective disorder bipolar type admitted on a 302 commitment 4 days after being discharged from this unit on 08/29 after a 27-day hospitalization. She was discharged on a 304 IOC, and returned to the ER later that same day, after police were called due to bizarre behavior at a local grocery store, and was again discharged. Readmitted several days later with psychotic symptoms including paranoia, delusions of persecution (that people were trying to poison/harm her), refusing to eat with hypokalemia, homelessness, delusions that she owns a home, and inability to provide for her own basic needs. Additionally, family members who petitioned reported she made suicidal statements and walked into traffic, and reported delusions that her son had stabbed her in her intestines were hanging out. They also reported she had been noncompliant with oral psychotropic medications, and although her continuous pillowcase cutter assisted her to fill these on the day of discharge, she did not bring them into the hospital with her and says she does not know where they are. She has repeatedly demonstrated complete inability to provide for her own basic needs outside of the hospital, including health, welfare, longterm, food, and safety. Inpatient treatment is medically necessary due to the severity of her symptoms and risk for suicide if discharged. She is now on a 304 involuntary commitment, has been started on Invega Sustenna, and has been referred to the [facility] long-term inpatient treatment. Referral was made on 09/07/2019, it informed that she will be placed on the wait list once they receive the amended court order, hopefully 10/09/2019. Patient isolative in her room but remains delusional with believes that she has a home in [place] she can return to, and therefore continues to be uncooperative with appropriate discharge planning. (1) Schizoaffective disorder, bipolar type: 09/03/19 -The patient has been admitted to the locked, secured behavioral health unit and has been placed in special observation room. She is also being monitored with close observations and every 15-minute direct observation. When more stable she will be actively encouraged to participate in individual, group, and activity therapies. We will also attempt to involve the family if the patient permits us to and if they agree. - Resuming medications as was rx'd at time of discharge on 08/29 including po Invega, lithium, and Sustenna. 09/03 -continue current medications, patient is taking them. -File for 306 conversion hearing to be held 09/06/2019. She will likely need referral to the community health hospital due to the need for long-term inpatient treatment. -Reviewed FLP and FG from recent hospitalization 08/07/2019: Cholesterol 221, glucose 109, other values within normal limits. -Attempt to involve family is able; son-in-law Poli is petitioner and was involved in hospitalization so we will ask staff to contact him for collateral information and to determine the family's ability to assist with discharge planning and housing. She has very limited supports in the community and if they are unable to assist her with housing and care, she will likely require long-term hospitalization. -Continue private room for psychosis. 09/04 - Continue current medication regimen - patient has been compliant with med ications in this structured environment - 306 conversion hearing scheduled for 09/05 - Meeting with continuous pillowcase cutter today to discuss treatment options and continue attempts to build rapport - Referral to [facility] is being recommended at this time has patient has repeatedly demonstrated an inability to care for self and provide for basic needs without the support of a structured psychiatric setting. - EKG (WNL). PPD was refused by patient - CXR ordered 09/05 -306 hearing held and patient converted to a 304 involuntary commitment. -Referred to [facility] for long-term inpatient treatment, as patient is severely ill and unable to provide for her own basic needs as a result of her mental illness, and treatment for 27 days on our acute unit was insufficient for successful transition to the community. She was at [facility] for 4 months within the past year, and did respond to treatment there, so returned to the community health hospital as recommended for long-term treatment of SPMI. -EKG and chest x-ray completed for state hospital referral. 09/06 - Continue current medication regimen - Referral to [facility] is being prepared, approval was reportedly received from the [facility] - Ongoing attempt to build rapport with psychiatric continuous pillowcase cutter 09/07 - 09/09 - Continue current medication regimen - Referral sent to [facility] on 09/07/2019 for recommended long- term psychiatric hospitalization based on chronic medication/treatment non- compliance and repeated demonstration of inability to care for self outside of a structured psychiatric setting. - Pt was informed of [facility] referral today during encounter 09/10 - Continue current medication regimen - [facility] referral sent on 09/07/2019 - requesting updates regarding when case is anticipated to be reviewed and ensure information was received - Pt continues to demand to leave, unable to appreciated the severity of her condition. Ongoing concern related to patient's repeated demonstration of inability to care for self outside of a structured psychiatric setting. 09/11 - Continue current medication regimen - Awaiting acceptance at [facility]. Ongoing concern related to patient's repeated demonstration of inability to care for self outside of a structured psychiatric setting. 09/12 - 09/14 - Pt due for next injection of Invega Sustenna 234mg IM on 09/16. Oral supplementation was continued from last hospitalization due to concern for ongoing instability with regard to psychotic symptoms. In preparation for first maintenance dose, will reduce oral supplementation to 3mg qAM and discontinue oral paliperidone on 09/16. Continue lithium 450mg BID unchanged. - Awaiting replay for [facility] regarding referral. Ongoing concern related to patient's repeated demonstration of inability to care for self outside of a structured psychiatric setting. Pt has consistently not been agreeable to diversion planning as a result of fixed delusional beliefs that she has family support, that she has a house to live in, and that she has a lot of money - none of these statements confirmed to be true. 09/15 -Continue treatment plan as previously prescribed 09/16 -now fully converted to invega sustenna. 09/17 - Continue current treatment plan 09/18 - 09/20 - Continue current treatment plan - Confirmed that information from patient's hospitalization at our facility was received by [facility], but case has not yet been reviewed. Still awaiting determination of acceptance status. 09/21 - continue current meds and tx plan. Reinstitute medically necessary private room as hx of aggression, labile mood, poor ability to keep contact precautions with COVID, hx homelessness higher risk category 09/22 - 09/23 - continue current meds and tx plan. 09/24 continue current meds and tx plan. MNPR for now as less paranoid and more visible on unit. 09/25 - Continue current treatment plan - patient remains irritable, paranoid, and delusional - Continue MNPR for paranoia and irritability 09/26 - Continue current treatment plan - Still awaiting response from [facility], 3 weeks after initially referral packet was sent - Pt did reportedly complete her Medical Assistance application. Consider repeat meeting with the county to discuss options for diversion planning; though these remain very limited - As review of patient's treatment plan has historically been very upsetting to the patient, discharge plans have not changed, and the therapeutic value of the review is limited - discussed with patient who did agree to review her treatment plan once a week unless there are changes in the interim. This was confirmed by multiple parties and can be reviewed with greater frequency at which time patient better tolerates the conversation and the therapeutic value is increased. 09/27 - 10/01 - Continue current treatment plan - Still awaiting response from [facility] - Pt is unwilling to consider alternative housing options - she maintains the delusion that she has a penthouse in [place] which has been confirmed to be untrue. 10/02 - Continue as above - medications renewed - Still awaiting response from [facility] - Pt maintains fixed delusions that are interfering significantly with patient's ability to adequately care for herself outside of a structured/supervised setting 10/03 - Continue current medication regimen - 30-day treatment review; treatment plan reviewed with patient who did become angry when length of stay was reviewed. Again became acutely agitated during conversation with provider today - Pt demonstrated very loud yelling, acute agitation, and inability to appropriately communicate frustration. These concerns, in addition to numerous failed attempts at discharge, continue to be evidence as to why patient is not appropriate to be discharged to the community. - Pt is not appropriate to go outside based on episodes of acute agitation a nd continued delusions which interfere with patient's ability to ensure appropriate behavior 10/04 - 10/05 - Continue current medication regimen - Pt remains inappropriate to go outside - Plan remains for transfer to the [facility] - no response regarding acceptance 10/06 - 10/07 -continue current plan. Amended court order to be obtained Wednesday and sent to the [facility] for acceptance and put patient on their wait list. 10/08 - 10/10 - continue current plan. Discharge plan continues to be placement at [facility] - Pt continues to be inappropriate to go outside based on continued demands for discharge, delusional thought content, and concerns for elopement risk if taken outside the hospital setting 10/11 - Continue current treatment plan - anticipated discharge to [facility] - Did review in detail expectations related to ability to go outside. Expectations were provided to patient, who initially verbalized understanding and repeated them back to this provider. Unfortunately, when expectations were reviewed right before attempt to go outside, patient escalated and demanded discharge and stated she was not going to the [facility]. Based on this behavior, it was deemed patient was not appropriate to go outside today. - Received amended court order to reflect updated 304 commitment to [facility] - following up to formally place patient on the waitlist (2) Noncompliance with medication regimen: 09/02 - Unable to clarify if pt has been taking her medications regularly in the days since discharge. She at first indicated that she was not then indicated the medications arein a bag of hers but did not indicate actually taking them. The patient also claims to not recall the names of any of her medications and reports that she does not have the conditions for which her known medications are clearly intended. Possible cognitive impairments. might be impacting medication compliance. language impairments with pt not speaking [place] impacting compliance concerns. -The patient's underlying psychiatric condition will be actively treated. It is hoped that with treatment we will be able to improve medication compliance and also address aspects that impact compliance and improve this with appropriate interventions. CANTOR form of Invega to be continued at this time, next dose not due for another 2 weeks. Pt took meds this morning that were offered to her but given her extensive non compliance prior to, during and seeming after recent admission and lack of insight to her dx and presentation and indicating that recent hospitalization was quite helpful for her and her indicating wanting to continue her medications as was rx' at end of recent [facility] admission and were instructed to take at that discharge. I am in favor of medication over objection if pt objects to taking her medication during the course of this admission or if it is determined that pt is checking or not actually taking her medications. (3) Homeless: 09/03/19 -In the past, the patient has lived with family members. However, this is clearly not an option at the present time. The context is that the patient reportedly was in detention for approximately a year because of her making terroristic threats against the family. While it does seem clear that the family wants to help protect her, they are unable to safely provide longterm. Given the patient's history of neglect of self-care, medication nonadherence, and possible cognitive deficits we are going to investigate structured residential programs as part of our discharge planning. 09/03 -patient has consistently refused assistance with housing, insisting that she has a house in [place], although has not been able to provide an address and her family states this is not true. 09/06 - Patient's grandson called unit yesterday to provide additional information, stating the patient has been homeless for quite some time and there is no valid address for the patient 09/29 pt remains delusional about having a home and is agitated if this is approached or challenged in anyway 09/30 did not discuss further today as this is a point of delusion and been shown to be refractory to challenging in anyway (4) Involuntary commitment: 09/03 -patient on a 304 IOC, readmitted on a 302. We will file for a 306 conversion hearing. 09/04 - 306 hearing scheduled for 09/05; anticipate referral to [facility]. 09/05 -306 conversion granted, now here on a 304 involuntary commitment. 09/07 - Referral packet sent to [facility] on 09/06 (5) Nicotine abuse: 09/02 - Nicotine Patch 7mg topical daily resumed, and smoking cessation to be done when pt is in more apposite mental state to do so Inventory Assets Strengths: concerned family members, pleasant on approach Needs: stable housing, improved compliance to medication and treatment plan. Risk Factors Assessment Male: No : No Do You Have Access To A Gun?: No Health Problems: No Mental Health Diagnoses: Yes Substance Use Disorders: No Previous Attempt: Yes (Per family, patient denies) Previous Psychiatric Hospitalization: Yes Hopelessness: No Smoker: Yes Protective Factors Assessment : No Responsible for Young Children: No Employed: No Stable Relationships: No Supportive Family: No Good Rapport with Provider: No Interval History Identifying Information ANDREW CYR is a 64-year-old F who currently is homeless in [place] area, has a history of schizoaffective disorder, bipolar type, and was admitted on 09/03/19 05:42 on a 302 involuntary commitment for psychosis, suicidal ideation, inability to provide for basic needs, and medication noncompliance. Chief Complaint "I'm well. Thank you." Review of Systems Notes Constitutional: denied Cardiovascular: denied Respiratory: denied Gastrointestinal: denied Neurological: denied Psychiatric: denies symptoms other than stated above Total of at least 10 systems reviewed, pertinent positives as above and in HPI. Sleep Information Total Hours of Sleep: 5.5 Sleep Comments: pt on q-15 minute checks Meal Information Percent Meal Consumed - Breakfast: 100 Percent Meal Consumed - Lunch: 100 Percent Meal Consumed - Dinner: 100 Nutrition Comment: documented from the pt. meal record Subjective Subjective Patient was seen & assessed and interval progress reviewed with nursing and social work. Staff report the patient continues to be superficially cooperative and pleasant. She was intermittently tearful throughout the day yesterday. Pt was seen today to assess progress since admission. [place] conversation was conducted with assistance from [employer] interpretive [employer] [facility] #[id number]. Pt states she is "well, thank you." She denied any new concerns or physical complaints at this time. Pt was informed of need to review whether patient is appropriate to go outside. Pt does verbalize a desire to go outside. This provider reviewed expectations with the patient: staff would need to accompany her, that patient must remain on hospital property, that visit would be brief (about 10-15 minutes), patient would have to wear a mask, and that she would need to cooperate with coming back inside - reinforcing that this was not to be confused with discharge. Pt was asked if she understood, to which she reported "of course." Pt was asked to repeat these expectations back to this provider, which she did without incident. Pt was again reminded that a visit outside is not discharge, and that she will need to come back to the unit for continued tr eatment and transfer to the [facility]. Pt stated again "Perfect. I totally understand. Thanks." Pt was informed that staff would need to deliberate about this, but that she would be updated shortly. After review with staff, it was decided that two staff members would attempt to take the patient outside. We discussed using the assistant city attorney to reinforce the previous discussion. Unfortunately, the patient began to become agitated and wanted to know when she was leaving. Staff state the patient seemed to be focused on the fact that the visit would only be 10-15 minutes, and there was increased concern about the ability to safely bring the patient back inside. It was determined that we would try to assess patient's appropriateness to go outside on another day. Physical Exam Psychiatric Orientation: alert and cooperative (superficially pleasant) Apperance: appropriately dressed (casually, in t-shirt and leggings), appropriately groomed (curly hair, pulled back in pony tail) and appeared stated age Eye Contact: good eye contact Motor Behavior: steady gait and station and no abnormal motor movements Speech: normal rate/rhythm/volume of speech (brief responses to questions) Affect: + blunted affect (appearing subdued) Mood: no depressed mood ("I'm well") Thought Process: goal directed thought process and + concrete thought process Thought Content: + delusions (fixed delusions persist; does not verbalize any delusional thought content) Suicidal Thoughts: denies suicidal thoughts Homicidal Thoughts: denies homicidal thoughts Hallucinations: no auditory hallucinations and no visual hallucinations denied by patient, however she is observed to be laughing and talking to herself when in her room alone Cognition: attention grossly intact and language grossly intact Insight: + impaired insight Judgement: + impaired judgement Vital Signs (Past 24 Hours) Last Vital Signs Temp 36.8 C 10/12/19 06:41 Pulse 77 10/12/19 06:42 Resp 18 10/12/19 06:41 BP 137/88 10/12/19 06:42 Pulse Ox 95 09/03/19 05:47 Results & Data ([facility]) Current Inpatient Medications Current Inpatient Medications: Current Inpatient Medications Acetaminophen (Tylenol) 650 mg PO Q4H PRN PRN Reason: Headache or Minor Fever Stop: 11/02/19 08:46 Al Hydrox/Mg Hydrox/Simethicone (Maalox) 30 ml PO Q4H PRN PRN Reason: GI Upset Stop: 11/02/19 08:46 Bismuth Subsalicylate (Kaopectate) 15 ml PO PRN PRN PRN Reason: Loose Stool Stop: 11/02/19 08:46 Clotrimazole (Lotrimin 1%) 1 appln EXT BID [facility] Stop: 10/24/19 20:59 Last Admin: 10/12/19 08:02 Dose: 1 appln Documented by: Docusate Sodium (Colace) 100 mg PO BID CLARISA Stop: 11/02/19 20:59 Last Admin: 10/12/19 07:59 Dose: 100 mg Documented by: Haloperidol (Haldol) 5 mg PO Q6H PRN PRN Reason: Agitation/Psychosis Stop: 11/04/19 15:13 Hydroxyzine HCl (Vistaril) 50 mg PO HSZ PRN PRN Reason: Insomnia Stop: 11/02/19 08:46 Hydroxyzine HCl (Vistaril) 25 mg PO Q4H PRN PRN Reason: Anxiety Stop: 11/02/19 08:46 Levothyroxine Sodium (Synthroid) 75 mcg PO DAILYBB CLARISA Stop: 11/02/19 07:59 Last Admin: 10/12/19 07:59 Dose: 75 mcg Documented by: Larned Carbonate (Eskalith) 450 mg PO BID CLARISA Stop: 11/02/19 08:59 Last Admin: 10/12/19 07:59 Dose: 450 mg Documented by: Magnesium Hydroxide (Milk Of Magnesia) 30 ml PO DAILY PRN PRN Reason: Constipation Stop: 11/02/19 08:46 Paliperidone Palmitate (Invega Sustenna) 234 mg IM Q4WK CLARISA Stop: 11/14/19 08:59 Simvastatin (Zocor) 10 mg PO HS CLARISA Stop: 11/02/19 21:59 Last Admin: 10/11/19 21:05 Dose: 10 mg Documented by: Sodium Chloride (Twin Nasal) 1 - 2 sprays NA PRN PRN PRN Reason: Nasal Dryness/Congestion Stop: 11/02/19 08:46 Mental Health & Subst Abuse Tx Psychiatrist Name of Psychiatrist: . Psychiatrist's Phone Number: . Date of Appointment with Psychiatrist: 09/14/19 Time of Appointment with Psychiatrist: . Psychiatric Appointment Comment: . Therapist Name of Therapist: . Childbirth Educator Name of Childbirth Educator: [facility] - Lizzy Pandey Phone Number for Childbirth Educator: [phone] Post Discharge Appointments Primary Care Physician Name Of Family Doctor: [facility] Primary Care Provider Appointment Comment: [address], [address], [place] [address]
[2019-10-12] MEDS: SIMVASTATIN 10 MG TAB PO SCH (20:42)
[2019-10-13] MEDS: LEVOTHYROXINE SODIUM 75 MCG TABLET PO SCH (08:31)
[2019-10-13] MEDS: DOCUSATE SODIUM 100 MG CAP PO SCH ×2 (08:32→21:01)
[2019-10-13] MEDS: CLOTRIMAZOLE 1% CR 15 GM TUBE EXT SCH ×2 (08:32→21:03)
[2019-10-13] MEDS: LITHIUM CARBONATE 450 MG TABCR PO SCH ×2 (08:32→21:02)
--- NOTE | 2019-10-13 09:13 | Psychiatric Progress Note ---
Date of Service October 13, 2019 Impression / Recommendations Impression 63-year-old Iranian female with schizoaffective disorder bipolar type admitted on a 302 commitment 4 days after being discharged from this unit on 08/29 after a 27-day hospitalization. She was discharged on a 304 IOC, and returned to the ER later that same day, after police were called due to bizarre behavior at a local grocery store, and was again discharged. Readmitted several days later with psychotic symptoms including paranoia, delusions of persecution (that people were trying to poison/harm her), refusing to eat with hypokalemia, homelessness, delusions that she owns a home, and inability to provide for her own basic needs. Additionally, family members who petitioned reported she made suicidal statements and walked into traffic, and reported delusions that her son had stabbed her in her intestines were hanging out. They also reported she had been noncompliant with oral psychotropic medications, and although her pillowcase maker assisted her to fill these on the day of discharge, she did not bring them into the hospital with her and says she does not know where they are. She has repeatedly demonstrated complete inability to provide for her own basic needs outside of the hospital, including health, welfare, care home, food, and safety. Inpatient treatment is medically necessary due to the severity of her symptoms and risk for suicide if discharged. She is now on a 304 involuntary commitment, has been started on Invega Sustenna, and has been referred to the [facility] long-term inpatient treatment. Referral was made on 09/07/2019, received update on 10/12/2019 that patient is officially on the waitlist - specific bed date remains uncertain at this time. Pt updated with this information. Patient isolative in her room but remains delusional with believes that she has a home in [place] she can return to, and therefore continues to be uncooperative with appropriate discharge planning. (1) Schizoaffective disorder, bipolar type: 09/03/19 -The patient has been admitted to the locked, secured behavioral health unit and has been placed in special observation room. She is also being monitored with close observations and every 15-minute direct observation. When more stable she will be actively encouraged to participate in individual, group, and activity therapies. We will also attempt to involve the family if the patient permits us to and if they agree. - Resuming medications as was rx'd at time of discharge on 08/29 including po Invega, lithium, and Sustenna. 09/03 -continue current medications, patient is taking them. -File for 306 conversion hearing to be held 09/06/2019. She will likely need referral to the [facility] hospital due to the need for long-term inpatient treatment. -Reviewed FLP and FG from recent hospitalization 08/07/2019: Cholesterol 221, glucose 109, other values within normal limits. -Attempt to involve family is able; son-in-law Poli is petitioner and was involved in hospitalization so we will ask staff to contact him for collateral information and to determine the family's ability to assist with discharge planning and housing. She has very limited supports in the community and if they are unable to assist her with housing and care, she will likely require long-term hospitalization. -Continue private room for psychosis. 09/04 - Continue current medication regimen - patient has been compliant with medications in this structured environment - 306 conversion hearing scheduled for 09/05 - Meeting with pillowcase maker today to discuss treatment options and continue attempts to build rapport - Referral to [facility] is being recommended at this time has patient has repeatedly demonstrated an inability to care for self and provide for basic needs without the support of a structured psychiatric setting. - EKG (WNL). PPD was refused by patient - CXR ordered 09/05 -306 hearing held and patient converted to a 304 involuntary commitment. -Referred to [facility] for long-term inpatient treatment, as patient is severely ill and unable to provide for her own basic needs as a result of her mental illness, and treatment for 27 days on our acute unit was insufficient for successful transition to the community. She was at [facility] for 4 months within the past year, and did respond to treatment there, so returned to the [facility] hospital as recommended for long-term treatment of SPMI. -EKG and chest x-ray completed for state hospital referral. 09/06 - Continue current medication regimen - Referral to [facility] is being prepared, approval was reportedly received from the county - Ongoing attempt to build rapport with psychiatric pillowcase maker 09/07 - 09/09 - Continue current medication regimen - Referral sent to [facility] on 09/07/2019 for recommended long- term psychiatric hospitalization based on chronic medication/treatment non- compliance and repeated demonstration of inability to care for self outside of a structured psychiatric setting. - Pt was informed of [facility] referral today during encounter 09/10 - Continue current medication regimen - [facility] referral sent on 09/07/2019 - requesting updates regarding when case is anticipated to be reviewed and ensure information was received - Pt continues to demand to leave, unable to appreciated the severity of her condition. Ongoing concern related to patient's repeated demonstration of inability to care for self outside of a structured psychiatric setting. 09/11 - Continue current medication regimen - Awaiting acceptance at [facility]. Ongoing concern related to patient's repeated demonstration of inability to care for self outside of a structured psychiatric setting. 09/12 - 09/14 - Pt due for next injection of Invega Sustenna 234mg IM on 09/16. Oral supplementation was continued from last hospitalization due to concern for ongoing instability with regard to psychotic symptoms. In preparation for first maintenance dose, will reduce oral supplementation to 3mg qAM and discontinue oral paliperidone on 09/16. Continue lithium 450mg BID unchanged. - Awaiting replay for [facility] regarding referral. Ongoing concern related to patient's repeated demonstration of inability to care for self outside of a structured psychiatric setting. Pt has consistently not been agreeable to diversion planning as a result of fixed delusional beliefs that she has family support, that she has a house to live in, and that she has a lot of money - none of these statements confirmed to be true. 09/15 -Continue treatment plan as previously prescribed 09/16 -now fully converted to invega sustenna. 09/17 - Continue current treatment plan 09/18 - 09/20 - Continue current treatment plan - Confirmed that information from patient's hospitalization at our facility was received by [facility], but case has not yet been reviewed. Still awaiting determination of acceptance status. 09/21 - continue current meds and tx plan. Reinstitute medically necessary private room as hx of aggression, labile mood, poor ability to keep contact precautions with COVID, hx homelessness higher risk category 09/22 - 09/23 - continue current meds and tx plan. 09/24 continue current meds and tx plan. MNPR for now as less paranoid and more visible on unit. 09/25 - Continue current treatment plan - patient remains irritable, paranoid, and delusional - Continue MNPR for paranoia and irritability 09/26 - Continue current treatment plan - Still awaiting response from [facility], 3 weeks after initially referral packet was sent - Pt did reportedly complete her Medical Assistance application. Consider repeat meeting with the county to discuss options for diversion planning; though these remain very limited - As review of patient's treatment plan has historically been very upsetting to the patient, discharge plans have not changed, and the therapeutic value of the review is limited - discussed with patient who did agree to review her treatment plan once a week unless there are changes in the interim. This was confirmed by multiple parties and can be reviewed with greater frequency at which time patient better tolerates the conversation and the therapeutic value is increased. 09/27 - 10/01 - Continue current treatment plan - Still awaiting response from [facility] - Pt is unwilling to consider alternative housing options - she maintains the delusion that she has a penthouse in [place] which has been confirmed to be untrue. 10/02 - Continue as above - medications renewed - Still awaiting response from [facility] - Pt maintains fixed delusions that are interfering significantly with patient's ability to adequately care for herself outside of a structured/supervised setting 10/03 - Continue current medication regimen - 30-day treatment review; treatment plan reviewed with patient who did become angry when length of stay was reviewed. Again became acutely agitated during conversation with provider today - Pt demonstrated very loud yelling, acute agitation, and inability to appropriately communicate frustration. These concerns, in addition to numerous failed attempts at discharge, continue to be evidence as to why patient is not appropriate to be discharged to the community. - Pt is not appropriate to go outside based on episodes of acute agitation and continued delusions which interfere with patient's ability to ensure appropriate behavior 10/04 - 10/05 - Continue current medication regimen - Pt remains inappropriate to go outside - Plan remains for transfer to the [facility] - no response regarding acceptance 10/06 - 10/07 -continue current plan. Amended court order to be obtained Wednesday and sent to the [facility] for acceptance and put patient on their wait list. 10/08 - 10/10 - continue current plan. Discharge plan continues to be placement at [facility] - Pt continues to be inappropriate to go outside based on continued demands for discharge, delusional thought content, and concerns for elopement risk if taken outside the hospital setting 10/11 - Continue current treatment plan - anticipated discharge to [facility] - Did review in detail expectations related to ability to go outside. Expectations were provided to patient, who initially verbalized understanding and repeated them back to this provider. Unfortunately, when expectations were reviewed right before attempt to go outside, patient escalated and demanded discharge and stated she was not going to the [facility]. Based on this behavior, it was deemed patient was not appropriate to go outside today. - Received amended court order to reflect updated 304 commitment to [facility] - following up to formally place patient on the waitlist 10/12 - Continue current medication regimen - pt due for next Invega Sustenna injection on 10/14 - Received confirmation that patient was formally placed on the waitlist at [facility], no available bed date at this time - Pt updated on status of [facility] referral, also updated that we were informed there is another Bengali-speaking patient on the unit she will be admitted to and they have two Bengali-speaking staff/interpreters on service. (2) Noncompliance with medication regimen: 09/02 - Unable to clarify if pt has been taking her medications regularly in the days since discharge. She at first indicated that she was not then indicated the medications arein a bag of hers but did not indicate actually taking them. The patient also claims to not recall the names of any of her medications and reports that she does not have the conditions for which her known medications are clearly intended. Possible cognitive impairments. might be impacting medication compliance. language impairments with pt not speaking Moroccan impacting compliance concerns. -The patient's underlying psychiatric condition will be actively treated. It is hoped that with treatment we will be able to improve medication compliance and also address aspects that impact compliance and improve this with appropriate interventions. CANTOR form of Invega to be continued at this time, next dose not due for another 2 weeks. Pt took meds this morning that were offered to her but given her extensive non compliance prior to, during and seeming after recent admission and lack of insight to her dx and presentation and indicating that recent hospitalization was quite helpful for her and her indicating wanting to continue her medications as was rx' at end of recent [facility] admission and were instructed to take at that discharge. I am in favor of medication over objection if pt objects to taking her medication during the course of this admission or if it is determined that pt is checking or not actually taking her medications. (3) Homeless: 09/03/19 -In the past, the patient has lived with family members. However, this is clearly not an option at the present time. The context is that the patient reportedly was in intermediate for approximately a year because of her making terroristic threats against the family. While it does seem clear that the family wants to help protect her, they are unable to safely provide care home. Given the patient's history of neglect of self-care, medication nonadherence, and possible cognitive deficits we are going to investigate structured residential programs as part of our discharge planning. 09/03 -patient has consistently refused assistance with housing, insisting that she has a house in [place], although has not been able to provide an address and her family states this is not true. 09/06 - Patient's grandson called unit yesterday to provide additional information, stating the patient has been homeless for quite some time and there is no valid address for the patient 09/29 pt remains delusional about having a home and is agitated if this is approached or challenged in anyway 09/30 did not discuss further today as this is a point of delusion and been shown to be refractory to challenging in anyway (4) Involuntary commitment: 09/03 -patient on a 304 IOC, readmitted on a 302. We will file for a 306 conversion hearing. 09/04 - 306 hearing scheduled for 09/05; anticipate referral to [facility]. 09/05 -306 conversion granted, now here on a 304 involuntary commitment. 09/07 - Referral packet sent to [facility] on 09/06 (5) Nicotine abuse: 09/02 - Nicotine Patch 7mg topical daily resumed, and smoking cessation to be done when pt is in more apposite mental state to do so Inventory Assets Strengths: concerned family members, pleasant on approach Needs: stable housing, improved compliance to medication and treatment plan. Risk Factors Assessment Male: No : No Do You Have Access To A Gun?: No Health Problems: No Mental Health Diagnoses: Yes Substance Use Disorders: No Previous Attempt: Yes (Per family, patient denies) Previous Psychiatric Hospitalization: Yes Hopelessness: No Smoker: Yes Protective Factors Assessment : No Responsible for Young Children: No Employed: No Stable Relationships: No Supportive Family: No Good Rapport with Provider: No Interval History Identifying Information ANDREW CYR is a 64-year-old F who currently is homeless in [facility], has a history of schizoaffective disorder, bipolar type, and was admitted on 09/03/19 05:42 on a 302 involuntary commitment for psychosis, suicidal ideation, inability to provide for basic needs, and medication noncompliance. Chief Complaint "Good. Thank you." Review of Systems Notes Constitutional: denied Cardiovascular: denied Respiratory: denied Gastrointestinal: denied Neurological: denied Integumentary: reports callus pain on bottom of left foot Psychiatric: denies symptoms other than stated above Total of at least 10 systems reviewed, pertinent positives as above and in HPI. Sleep Information Total Hours of Sleep: 3.5 Sleep Comments: pt on q-15 minute checks Meal Information Percent Meal Consumed - Breakfast: 100 Percent Meal Consumed - Lunch: 100 Percent Meal Consumed - Dinner: 100 Nutrition Comment: documented from the pt. meal record Subjective Subjective Patient was seen & assessed and interval progress reviewed with treatment team. Staff report the patient was observed to be speaking to herself in her room more frequently yesterday. She was unable to participate appropriately in conversation to discuss the potential to go outside, with plans to continue to re-evaluate. We were informed on 10/12/[address] order was received, and patient is formally on the waitlist for transfer to [facility] - uncertain of bed date at this time. Pt was seen today to assess progress since admission. Bengali-Moroccan conversation was conducted with assistance from [facility] interpretive [facility] #[id number]. Pt states she is "Good. Thank you." Pt was provided with an update about placement on the waitlist for [facility]. She was also informed that there would be another Bengali-speaking patient on her unit and several bilingual staff/interpreters. Pt simply responded with "good. Thank you." Pt was specifically informed that we do not have a formal discharge date, and did not become upset about this during our encounter. Pt did, however, respond with unrelated comments - "I don't see any. I don't know the President's house. I don't know it." Pt denied most physical symptoms today, but did admit to some left foot pain, as she reports a callus on the bottom of her foot. Toenail discoloration has been treated with Lotrimin and appears to be helpful; however, patient does not feel this is the case. She reports "I have been applying some medication on my nails for an infection from the acid they gave me. It doesn't help at all." Pt de nied other needs at this time, denied further questions. Physical Exam Psychiatric Orientation: alert and + guarded (superficially cooperative) Apperance: appropriately dressed (casually, in t-shirt and leggings), appropriately groomed (recently showered, curly hair appears naturally unkempt) and appeared stated age Eye Contact: + fair eye contact Motor Behavior: no abnormal motor movements (observed while sitting on edge of her bed) Speech: normal rate/rhythm/volume of speech (generally brief responses to questions) Affect: + blunted affect (appearing subdued) and + constricted affect Mood: no depressed mood ("Good") Thought Process: + concrete thought process Thought Content: + delusions (today making comments about the President's house, cont. fixed delusions) Hallucinations: ongoing observations throughout the day of patient speaking to herself, laughing, or spontaneously crying in her room Cognition: attention grossly intact and language grossly intact Estimated Intelligence: consistent with education level Insight: + severely impaired insight Judgement: + severely impaired judgement Vital Signs (Past 24 Hours) Last Vital Signs Temp 36.5 C 10/13/19 06:45 Pulse 73 10/13/19 06:46 Resp 18 10/13/19 06:45 BP 148/84 H 10/13/19 06:46 Pulse Ox 95 09/03/19 05:47 Results & Data ([facility]) Current Inpatient Medications Current Inpatient Medications: Current Inpatient Medications Acetaminophen (Tylenol) 650 mg PO Q4H PRN PRN Reason: Headache or Minor Fever Stop: 11/02/19 08:46 Al Hydrox/Mg Hydrox/Simethicone (Maalox) 30 ml PO Q4H PRN PRN Reason: GI Upset Stop: 11/02/19 08:46 Bismuth Subsalicylate (Kaopectate) 15 ml PO PRN PRN PRN Reason: Loose Stool Stop: 11/02/19 08:46 Clotrimazole (Lotrimin 1%) 1 appln EXT BID CLARISA Stop: 10/24/19 20:59 Last Admin: 10/13/19 08:32 Dose: 1 appln Documented by: Docusate Sodium (Colace) 100 mg PO BID CLARISA Stop: 11/02/19 20:59 Last Admin: 10/13/19 08:32 Dose: 100 mg Documented by: Haloperidol (Haldol) 5 mg PO Q6H PRN PRN Reason: Agitation/Psychosis Stop: 11/04/19 15:13 Hydroxyzine HCl (Vistaril) 50 mg PO HSZ PRN PRN Reason: Insomnia Stop: 11/02/19 08:46 Hydroxyzine HCl (Vistaril) 25 mg PO Q4H PRN PRN Reason: Anxiety Stop: 11/02/19 08:46 Levothyroxine Sodium (Synthroid) 75 mcg PO DAILYBB CLARISA Stop: 11/02/19 07:59 Last Admin: 10/13/19 08:31 Dose: 75 mcg Documented by: [place] Carbonate (Eskalith) 450 mg PO BID CLARISA Stop: 11/02/19 08:59 Last Admin: 10/13/19 08:32 Dose: 450 mg Documented by: Magnesium Hydroxide (Milk Of Magnesia) 30 ml PO DAILY PRN PRN Reason: Constipation Stop: 11/02/19 08:46 Paliperidone Palmitate (Invega Sustenna) 234 mg IM Q4WK CLARISA Stop: 11/14/19 08:59 Simvastatin (Zocor) 10 mg PO HS CLARISA Stop: 11/02/19 21:59 Last Admin: 10/12/19 20:42 Dose: 10 mg Documented by: Sodium Chloride (Cherry Nasal) 1 - 2 sprays NA PRN PRN PRN Reason: Nasal Dryness/Congestion Stop: 11/02/19 08:46 Mental Health & Subst Abuse Tx Psychiatrist Name of Psychiatrist: . Psychiatrist's Phone Number: . Date of Appointment with Psychiatrist: 09/14/19 Time of Appointment with Psychiatrist: . Psychiatric Appointment Comment: . Therapist Name of Therapist: . Dean Of Students Name of Dean Of Students: [employer] - Lizzy Pandey Phone Number for Dean Of Students: [phone] Post Discharge Appointments Primary Care Physician Name Of Family Doctor: [facility] Primary Care Provider Appointment Comment: [address], [address], [place] [address]
[2019-10-13] MEDS: SIMVASTATIN 10 MG TAB PO SCH (21:03)
[2019-10-14] MEDS: CLOTRIMAZOLE 1% CR 15 GM TUBE EXT SCH ×2 (07:38→21:28)
[2019-10-14] MEDS: DOCUSATE SODIUM 100 MG CAP PO SCH ×2 (07:38→21:27)
[2019-10-14] MEDS: LEVOTHYROXINE SODIUM 75 MCG TABLET PO SCH (07:38)
[2019-10-14] MEDS: LITHIUM CARBONATE 450 MG TABCR PO SCH ×2 (07:38→21:27)
--- NOTE | 2019-10-14 08:55 | Psychiatric Progress Note ---
Date of Service October 14, 2019 Impression / Recommendations Impression 63-year-old Barb[place] female with schizoaffective disorder bipolar type admitted on a 302 commitment 4 days after being discharged from this unit on 08/29 after a 27-day hospitalization. She was discharged on a 304 IOC, and returned to the ER later that same day, after police were called due to bizarre behavior at a local grocery store, and was again discharged. Readmitted several days later with psychotic symptoms including paranoia, delusions of persecution (that people were trying to poison/harm her), refusing to eat with hypokalemia, homelessness, delusions that she owns a home, and inability to provide for her own basic needs. Additionally, family members who petitioned reported she made suicidal statements and walked into traffic, and reported delusions that her son had stabbed her in her intestines were hanging out. They also reported she had been noncompliant with oral psychotropic medications, and although her patient case manager assisted her to fill these on the day of discharge, she did not bring them into the hospital with her and says she does not know where they are. She has repeatedly demonstrated complete inability to provide for her own basic needs outside of the hospital, including health, welfare, assisted, food, and safety. Inpatient treatment is medically necessary due to the severity of her symptoms and risk for suicide if discharged. She is now on a 304 involuntary commitment, has been started on Invega Sustenna, and has been referred to the [facility] long-term inpatient treatment. Referral was made on 09/07/2019, received update on 10/12/2019 that patient is officially on the waitlist - specific bed date remains uncertain at this time. Pt updated with this information. Patient isolative in her room but remains delusional with believes that she has a home in [place] she can return to, and therefore continues to be uncooperative with appropriate discharge planning. (1) Schizoaffective disorder, bipolar type: 09/03/19 -The patient has been admitted to the locked, secured behavioral health unit and has been placed in special observation room. She is also being monitored with close observations and every 15-minute direct observation. When more stable she will be actively encouraged to participate in individual, group, and activity therapies. We will also attempt to involve the family if the patient permits us to and if they agree. - Resuming medications as was rx'd at time of discharge on 08/29 including po Invega, lithium, and Sustenna. 09/03 -continue current medications, patient is taking them. -File for 306 conversion hearing to be held 09/06/2019. She will likely need referral to the [facility] due to the need for long-term inpatient treatment. -Reviewed FLP and FG from recent hospitalization 08/07/2019: Cholesterol 221, glucose 109, other values within normal limits. -Attempt to involve family is able; son-in-law Poli is petitioner and was involved in hospitalization so we will ask staff to contact him for collateral information and to determine the family's ability to assist with discharge planning and housing. She has very limited supports in the community and if they are unable to assist her with housing and care, she will likely require long-term hospitalization. -Continue private room for psychosis. 09/04 - Continue current medication regimen - patient has been compliant with medications in this structured environment - 306 conversion hearing scheduled for 09/05 - Meeting with patient case manager today to discuss treatment options and continue attempts to build rapport - Referral to [facility] is being recommended at this time has patient has repeatedly demonstrated an inability to care for self and provide for basic needs without the support of a structured psychiatric setting. - EKG (WNL). PPD was refused by patient - CXR ordered 09/05 -306 hearing held and patient converted to a 304 involuntary commitment. -Referred to [facility] for long-term inpatient treatment, as patient is severely ill and unable to provide for her own basic needs as a result of her mental illness, and treatment for 27 days on our acute unit was insufficient for successful transition to the community. She was at [facility] for 4 months within the past year, and did respond to treatment there, so returned to the [facility] as recommended for long-term treatment of SPMI. -EKG and chest x-ray completed for state hospital referral. 09/06 - Continue current medication regimen - Referral to [facility] is being prepared, approval was reportedly received from the county - Ongoing attempt to build rapport with psychiatric patient case manager 09/07 - 09/09 - Continue current medication regimen - Referral sent to [facility] on 09/07/2019 for recommended long- term psychiatric hospitalization based on chronic medication/treatment non- compliance and repeated demonstration of inability to care for self outside of a structured psychiatric setting. - Pt was informed of [facility] referral today during encounter 09/10 - Continue current medication regimen - [facility] referral sent on 09/07/2019 - requesting updates regarding when case is anticipated to be reviewed and ensure information was received - Pt continues to demand to leave, unable to appreciated the severity of her condition. Ongoing concern related to patient's repeated demonstration of inability to care for self outside of a structured psychiatric setting. 09/11 - Continue current medication regimen - Awaiting acceptance at [facility]. Ongoing concern related to patient's repeated demonstration of inability to care for self outside of a structured psychiatric setting. 09/12 - 09/14 - Pt due for next injection of Invega Sustenna 234mg IM on 09/16. Oral supplementation was continued from last hospitalization due to concern for ongoing instability with regard to psychotic symptoms. In preparation for first maintenance dose, will reduce oral supplementation to 3mg qAM and discontinue oral paliperidone on 09/16. Continue lithium 450mg BID unchanged. - Awaiting replay for [facility] regarding referral. Ongoing concern related to patient's repeated demonstration of inability to care for self outside of a structured psychiatric setting. Pt has consistently not been agreeable to diversion planning as a result of fixed delusional beliefs that she has family support, that she has a house to live in, and that she has a lot of money - none of these statements confirmed to be true. 09/15 -Continue treatment plan as previously prescribed 09/16 -now fully converted to invega sustenna. 09/17 - Continue current treatment plan 09/18 - 09/20 - Continue current treatment plan - Confirmed that information from patient's hospitalization at our facility was received by [facility], but case has not yet been reviewed. Still awaiting determination of acceptance status. 09/21 - continue current meds and tx plan. Reinstitute medically necessary private room as hx of aggression, labile mood, poor ability to keep contact precautions with COVID, hx homelessness higher risk category 09/22 - 09/23 - continue current meds and tx plan. 09/24 continue current meds and tx plan. MNPR for now as less paranoid and more visible on unit. 09/25 - Continue current treatment plan - patient remains irritable, paranoid, and delusional - Continue MNPR for paranoia and irritability 09/26 - Continue current treatment plan - Still awaiting response from [facility], 3 weeks after initially referral packet was sent - Pt did reportedly complete her Medical Assistance application. Consider repeat meeting with the county to discuss options for diversion planning; though these remain very limited - As review of patient's treatment plan has historically been very upsetting to the patient, discharge plans have not changed, and the therapeutic value of the review is limited - discussed with patient who did agree to review her treatment plan once a week unless there are changes in the interim. This was confirmed by multiple parties and can be reviewed with greater frequency at which time patient better tolerates the conversation and the therapeutic value is increased. 09/27 - 10/01 - Continue current treatment plan - Still awaiting response from [facility] - Pt is unwilling to consider alternative housing options - she maintains the delusion that she has a penthouse in [email or web address] which has been confirmed to be untrue. 10/02 - Continue as above - medications renewed - Still awaiting response from [facility] - Pt maintains fixed delusions that are interfering significantly with patient's ability to adequately care for herself outside of a structured/supervised setting 10/03 - Continue current medication regimen - 30-day treatment review; treatment plan reviewed with patient who did become angry when length of stay was reviewed. Again became acutely agitated during conversation with provider today - Pt demonstrated very loud yelling, acute agitation, and inability to appropriately communicate frustration. These concerns, in addition to numerous failed attempts at discharge, continue to be evidence as to why patient is not appropriate to be discharged to the community. - Pt is not appropriate to go outside based on episodes of acute agitation and continued delusions which interfere with patient's ability to ensure appropriate behavior 10/04 - 10/05 - Continue current medication regimen - Pt remains inappropriate to go outside - Plan remains for transfer to the [facility] - no response regarding acceptance 10/06 - 10/07 -continue current plan. Amended court order to be obtained Wednesday and sent to the [facility] for acceptance and put patient on their wait list. 10/08 - 10/10 - continue current plan. Discharge plan continues to be placement at [facility] - Pt continues to be inappropriate to go outside based on continued demands for discharge, delusional thought content, and concerns for elopement risk if taken outside the hospital setting 10/11 - Continue current treatment plan - anticipated discharge to [facility] - Did review in detail expectations related to ability to go outside. Expectations were provided to patient, who initially verbalized understanding and repeated them back to this provider. Unfortunately, when expectations were reviewed right before attempt to go outside, patient escalated and demanded discharge and stated she was not going to the [facility]. Based on this behavior, it was deemed patient was not appropriate to go outside today. - Received amended court order to reflect updated 304 commitment to [facility] - following up to formally place patient on the waitlist 10/12 - Continue current medication regimen - pt due for next Invega Sustenna injection on 10/14 - Received confirmation that patient was formally placed on the waitlist at [facility], no available bed date at this time - Pt updated on status of [facility] referral, also updated that we were informed there is another Burkinan-speaking patient on the unit she will be admitted to and they have two Burkinan-speaking staff/interpreters on service. 10/13 - Continue current medication regimen - maintenance injection of Invega Sustenna due 10/14 - Awaiting bed date at [facility] (2) Noncompliance with medication regimen: 09/02 - Unable to clarify if pt has been taking her medications regularly in the days since discharge. She at first indicated that she was not then indicated the medications arein a bag of hers but did not indicate actually taking them. The patient also claims to not recall the names of any of her medications and reports that she does not have the conditions for which her known medications are clearly intended. Possible cognitive impairments. might be impacting medication compliance. language impairments with pt not speaking Irish impacting compliance concerns. -The patient's underlying psychiatric condition will be actively treated. It is hoped that with treatment we will be able to improve medication compliance and also address aspects that impact compliance and improve this with appropriate interventions. CANTOR form of Invega to be continued at this time, next dose not due for another 2 weeks. Pt took meds this morning that were offered to her but given her extensive non compliance prior to, during and seeming after recent admission and lack of insight to her dx and presentation and indicating that recent hospitalization was quite helpful for her and her indicating wanting to continue her medications as was rx' at end of recent [facility] admission and were instructed to take at that discharge. I am in favor of medication over objection if pt objects to taking her medication during the course of this admission or if it is determined that pt is checking or not actually taking her medications. (3) Homeless: 09/03/19 -In the past, the patient has lived with family members. However, this is clearly not an option at the present time. The context is that the patient reportedly was in assisted for approximately a year because of her making terroristic threats against the family. While it does seem clear that the family wants to help protect her, they are unable to safely provide assisted. Given the patient's history of neglect of self-care, medication nonadherence, and possible cognitive deficits we are going to investigate structured residential programs as part of our discharge planning. 09/03 -patient has consistently refused assistance with housing, insisting that she has a house in [place], although has not been able to provide an address and her family states this is not true. 09/06 - Patient's grandson called unit yesterday to provide additional information, stating the patient has been homeless for quite some time and there is no valid address for the patient 09/29 pt remains delusional about having a home and is agitated if this is approached or challenged in anyway 09/30 did not discuss further today as this is a point of delusion and been shown to be refractory to challenging in anyway (4) Involuntary commitment: 09/03 -patient on a 304 IOC, readmitted on a 302. We will file for a 306 conversion hearing. 09/04 - 306 hearing scheduled for 09/05; anticipate referral to [facility]. 09/05 -306 conversion granted, now here on a 304 involuntary commitment. 09/07 - Referral packet sent to [facility] on 09/06 (5) Nicotine abuse: 09/02 - Nicotine Patch 7mg topical daily resumed, and smoking cessation to be done when pt is in more apposite mental state to do so Inventory Assets Strengths: concerned family members, pleasant on approach Needs: stable housing, improved compliance to medication and treatment plan. Risk Factors Assessment Male: No : No Do You Have Access To A Gun?: No Health Problems: No Mental Health Diagnoses: Yes Substance Use Disorders: No Previous Attempt: Yes (Per family, patient denies) Previous Psychiatric Hospitalization: Yes Hopelessness: No Smoker: Yes Protective Factors Assessment : No Responsible for Young Children: No Employed: No Stable Relationships: No Supportive Family: No Good Rapport with Provider: No Interval History Identifying Information ANDREW CYR is a 64-year-old F who currently is homeless in [facility], has a history of schizoaffective disorder, bipolar type, and was admitted on 09/03/19 05:42 on a 302 involuntary commitment for psychosis, suicidal ideation, inability to provide for basic needs, and medication noncompliance. Chief Complaint "Good. Thank you." Review of Systems Notes Constitutional: denied Cardiovascular: denied Respiratory: denied Gastrointestinal: denied Neurological: denied Psychiatric: denies symptoms other than stated above Total of at least 10 systems reviewed, pertinent positives as above and in HPI. Sleep Information Total Hours of Sleep: 5.25 Sleep Comments: pt on q-15 minute checks Meal Information Percent Meal Consumed - Breakfast: 100 Percent Meal Consumed - Lunch: 100 Percent Meal Consumed - Dinner: 100 Nutrition Comment: documented from the pt. meal record Subjective Subjective Patient was seen & assessed and interval progress reviewed with nursing and social work. Staff report the patient continues to tolerate the supportive hospital setting. Pt was seen today to assess progress since admission. Burkinan-Irish conversation was conducted with assistance from [employer] interpretive service Kaci #[id number]. Pt states she is "Good. Thank you." This provider commented on the Country music playing from her radio, and patient laughs and responds with "I like to vary it." Pt denies any new concerns today, and also denies any physical complaints. She reports she is pleased to be reading her Burkinan Bible and otherwise is doing well. She denies other needs or concerns today. Physical Exam Psychiatric Orientation: alert and cooperative (superficially ) Apperance: appropriately dressed (casually, in t-shirt and leggings), appropriately groomed (hair is naturally curly therefore appearing unkempt) and appeared stated age Eye Contact: good eye contact Motor Behavior: no abnormal motor movements (observed while sitting on edge of bed) Speech: normal rate/rhythm/volume of speech Affect: euthymic affect Mood: no depressed mood ("Good. Thank you.") Thought Process: goal directed thought process and + concrete thought process Thought Content: + delusions Suicidal Thoughts: denies suicidal thoughts Homicidal Thoughts: denies homicidal thoughts Hallucinations: patient continues to deny, but is observed to be talking and laughing to herself when alone in her room Cognition: attention grossly intact and language grossly intact Insight: + impaired insight Judgement: + impaired judgement Vital Signs (Past 24 Hours) Last Vital Signs Temp 36.5 C 10/14/19 06:41 Pulse 73 10/14/19 06:42 Resp 18 10/14/19 06:41 BP 130/82 10/14/19 06:42 Pulse Ox 95 09/03/19 05:47 Results & Data ([facility]) Current Inpatient Medications Current Inpatient Medications: Current Inpatient Medications Acetaminophen (Tylenol) 650 mg PO Q4H PRN PRN Reason: Headache or Minor Fever Stop: 11/02/19 08:46 Al Hydrox/Mg Hydrox/Simethicone (Maalox) 30 ml PO Q4H PRN PRN Reason: GI Upset Stop: 11/02/19 08:46 Bismuth Subsalicylate (Kaopectate) 15 ml PO PRN PRN PRN Reason: Loose Stool Stop: 11/02/19 08:46 Clotrimazole (Lotrimin 1%) 1 appln EXT BID CLARISA Stop: 10/24/19 20:59 Last Admin: 10/14/19 07:38 Dose: 1 appln Documented by: Docusate Sodium (Colace) 100 mg PO BID CLARISA Stop: 11/02/19 20:59 Last Admin: 10/14/19 07:38 Dose: 100 mg Documented by: Haloperidol (Haldol) 5 mg PO Q6H PRN PRN Reason: Agitation/Psychosis Stop: 11/04/19 15:13 Hydroxyzine HCl (Vistaril) 50 mg PO HSZ PRN PRN Reason: Insomnia Stop: 11/02/19 08:46 Hydroxyzine HCl (Vistaril) 25 mg PO Q4H PRN PRN Reason: Anxiety Stop: 11/02/19 08:46 Levothyroxine Sodium (Synthroid) 75 mcg PO DAILYBB CLARISA Stop: 11/02/19 07:59 Last Admin: 10/14/19 07:38 Dose: 75 mcg Documented by: [place] Carbonate (Eskalith) 450 mg PO BID CLARISA Stop: 11/02/19 08:59 Last Admin: 10/14/19 07:38 Dose: 450 mg Documented by: Magnesium Hydroxide (Milk Of Magnesia) 30 ml PO DAILY PRN PRN Reason: Constipation Stop: 11/02/19 08:46 Paliperidone Palmitate (Invega Sustenna) 234 mg IM Q4WK CLARISA Stop: 11/14/19 08:59 Simvastatin (Zocor) 10 mg PO HS CLARISA Stop: 11/02/19 21:59 Last Admin: 10/13/19 21:03 Dose: 10 mg Documented by: Sodium Chloride ([place] Nasal) 1 - 2 sprays NA PRN PRN PRN Reason: Nasal Dryness/Congestion Stop: 11/02/19 08:46 Mental Health & Subst Abuse Tx Psychiatrist Name of Psychiatrist: . Psychiatrist's Phone Number: . Date of Appointment with Psychiatrist: 09/14/19 Time of Appointment with Psychiatrist: . Psychiatric Appointment Comment: . Therapist Name of Therapist: . Electricity Trader Name of Electricity Trader: [facility] Lizzy Pandey Phone Number for Electricity Trader: [phone] Post Discharge Appointments Primary Care Physician Name Of Family Doctor: [facility] Primary Care Provider Appointment Comment: [address], [address], [place] [address]
[2019-10-14] MEDS: SOD PHOSPHATE/SOD BIPHOSPHATE ENEMA 132 ML BTL PR ONE ×2 (16:14→16:17)
[2019-10-14] MEDS: SIMVASTATIN 10 MG TAB PO SCH (21:27)
--- NOTE | 2019-10-15 07:43 | Psychiatric Progress Note ---
Date of Service October 15, 2019 Impression / Recommendations Impression 63-year-old Kazakh female with schizoaffective disorder bipolar type admitted on a 302 commitment 4 days after being discharged from this unit on 08/29 after a 27-day hospitalization. She was discharged on a 304 IOC, and returned to the ER later that same day, after police were called due to bizarre behavior at a local grocery store, and was again discharged. Readmitted several days later with psychotic symptoms including paranoia, delusions of persecution (that people were trying to poison/harm her), refusing to eat with hypokalemia, homelessness, delusions that she owns a home, and inability to provide for her own basic needs. Additionally, family members who petitioned reported she made suicidal statements and walked into traffic, and reported delusions that her son had stabbed her in her intestines were hanging out. They also reported she had been noncompliant with oral psychotropic medications, and although her catalytic case operator assisted her to fill these on the day of discharge, she did not bring them into the hospital with her and says she does not know where they are. She has repeatedly demonstrated complete inability to provide for her own basic needs outside of the hospital, including health, welfare, group home, food, and safety. Inpatient treatment is medically necessary due to the severity of her symptoms and risk for suicide if discharged. She is now on a 304 involuntary commitment, has been started on Invega Sustenna, and has been referred to the [facility]term [facility] treatment. Referral was made on 09/07/2019, received update on 10/12/2019 that patient is officially on the waitlist - specific bed date remains uncertain at this time. Pt updated with this information. Patient isolative in her room but remains delusional with believes that she has a home in [place] she can return to, and therefore continues to be uncooperative with appropriate discharge planning. (1) Schizoaffective disorder, bipolar type: 09/03/19 -The patient has been admitted to the locked, secured behavioral health unit and has been placed in special observation room. She is also being monitored with close observations and every 15-minute direct observation. When more stable she will be actively encouraged to participate in individual, group, and activity therapies. We will also attempt to involve the family if the patient permits us to and if they agree. - Resuming medications as was rx'd at time of discharge on 08/29 including po Invega, lithium, and Sustenna. 09/03 -continue current medications, patient is taking them. -File for 306 conversion hearing to be held 09/06/2019. She will likely need referral to the [facility] hospital due to the need for long-term inpatient treatment. -Reviewed FLP and FG from recent hospitalization 08/07/2019: Cholesterol 221, glucose 109, other values within normal limits. -Attempt to involve family is able; son-in-law Poli is petitioner and was involved in hospitalization so we will ask staff to contact him for collateral information and to determine the family's ability to assist with discharge planning and housing. She has very limited supports in the community and if they are unable to assist her with housing and care, she will likely require long-term hospitalization. -Continue private room for psychosis. 09/04 - Continue current medication regimen - patient has been compliant with medications in this structured environment - 306 conversion hearing scheduled for 09/05 - Meeting with catalytic case operator today to discuss treatment options and continue attempts to build rapport - Referral to [facility] is being recommended at this time has patient has repeatedly demonstrated an inability to care for self and provide for basic needs without the support of a structured psychiatric setting. - EKG (WNL). PPD was refused by patient - CXR ordered 09/05 -306 hearing held and patient converted to a 304 involuntary commitment. -Referred to [facility] for long-term inpatient treatment, as patient is severely ill and unable to provide for her own basic needs as a result of her mental illness, and treatment for 27 days on our acute unit was insufficient for successful transition to the community. She was at [facility] for 4 months within the past year, and did respond to treatment there, so returned to the [facility] hospital as recommended for long-term treatment of SPMI. -EKG and chest x-ray completed for state hospital referral. 09/06 - Continue current medication regimen - Referral to [facility] is being prepared, approval was reportedly received from the county - Ongoing attempt to build rapport with psychiatric catalytic case operator 09/07 - 09/09 - Continue current medication regimen - Referral sent to [facility] on 09/07/2019 for recommended long- term psychiatric hospitalization based on chronic medication/treatment non- compliance and repeated demonstration of inability to care for self outside of a structured psychiatric setting. - Pt was informed of [facility] referral today during encounter 09/10 - Continue current medication regimen - [facility] referral sent on 09/07/2019 - requesting updates regarding when case is anticipated to be reviewed and ensure information was received - Pt continues to demand to leave, unable to appreciated the severity of her condition. Ongoing concern related to patient's repeated demonstration of inability to care for self outside of a structured psychiatric setting. 09/11 - Continue current medication regimen - Awaiting acceptance at [facility]. Ongoing concern related to patient's repeated demonstration of inability to care for self outside of a structured psychiatric setting. 09/12 - 09/14 - Pt due for next injection of Invega Sustenna 234mg IM on 09/16. Oral supplementation was continued from last hospitalization due to concern for ongoing instability with regard to psychotic symptoms. In preparation for first maintenance dose, will reduce oral supplementation to 3mg qAM and discontinue oral paliperidone on 09/16. Continue lithium 450mg BID unchanged. - Awaiting replay for [facility] regarding referral. Ongoing concern related to patient's repeated demonstration of inability to care for self outside of a structured psychiatric setting. Pt has consistently not been agreeable to diversion planning as a result of fixed delusional beliefs that she has family support, that she has a house to live in, and that she has a lot of money - none of these statements confirmed to be true. 09/15 -Continue treatment plan as previously prescribed 09/16 -now fully converted to invega sustenna. 09/17 - Continue current treatment plan 09/18 - 09/20 - Continue current treatment plan - Confirmed that information from patient's hospitalization at our facility was received by [facility], but case has not yet been reviewed. Still awaiting determination of acceptance status. 09/21 - continue current meds and tx plan. Reinstitute medically necessary private room as hx of aggression, labile mood, poor ability to keep contact precautions with COVID, hx homelessness higher risk category 09/22 - 09/23 - continue current meds and tx plan. 09/24 continue current meds and tx plan. MNPR for now as less paranoid and more visible on unit. 09/25 - Continue current treatment plan - patient remains irritable, paranoid, and delusional - Continue MNPR for paranoia and irritability 09/26 - Continue current treatment plan - Still awaiting response from [facility], 3 weeks after initially referral packet was sent - Pt did reportedly complete her Medical Assistance application. Consider repeat meeting with the county to discuss options for diversion planning; though these remain very limited - As review of patient's treatment plan has historically been very upsetting to the patient, discharge plans have not changed, and the therapeutic value of the review is limited - discussed with patient who did agree to review her treatment plan once a week unless there are changes in the interim. This was confirmed by multiple parties and can be reviewed with greater frequency at which time patient better tolerates the conversation and the therapeutic value is increased. 09/27 - 10/01 - Continue current treatment plan - Still awaiting response from [facility] - Pt is unwilling to consider alternative housing options - she maintains the delusion that she has a penthouse in [place] which has been confirmed to be untrue. 10/02 - Continue as above - medications renewed - Still awaiting response from [facility] - Pt maintains fixed delusions that are interfering significantly with patient's ability to adequately care for herself outside of a structured/supervised setting 10/03 - Continue current medication regimen - 30-day treatment review; treatment plan reviewed with patient who did become angry when length of stay was reviewed. Again became acutely agitated during conversation with provider today - Pt demonstrated very loud yelling, acute agitation, and inability to appropriately communicate frustration. These concerns, in addition to numerous failed attempts at discharge, continue to be evidence as to why patient is not appropriate to be discharged to the community. - Pt is not appropriate to go outside based on episodes of acute agitation and continued delusions which interfere with patient's ability to ensure appropriate behavior 10/04 - 10/05 - Continue current medication regimen - Pt remains inappropriate to go outside - Plan remains for transfer to the [facility] - no response regarding acceptance 10/06 - 10/07 -continue current plan. Amended court order to be obtained Wednesday and sent to the [facility] for acceptance and put patient on their wait list. 10/08 - 10/10 - continue current plan. Discharge plan continues to be placement at [facility] - Pt continues to be inappropriate to go outside based on continued demands for discharge, delusional thought content, and concerns for elopement risk if taken outside the hospital setting 10/11 - Continue current treatment plan - anticipated discharge to [facility] - Did review in detail expectations related to ability to go outside. Expectations were provided to patient, who initially verbalized understanding and repeated them back to this provider. Unfortunately, when expectations were reviewed right before attempt to go outside, patient escalated and demanded discharge and stated she was not going to the [facility]. Based on this behavior, it was deemed patient was not appropriate to go outside today. - Received amended court order to reflect updated 304 commitment to [facility] - following up to formally place patient on the waitlist 10/12 - Continue current medication regimen - pt due for next Invega Sustenna injection on 10/14 - Received confirmation that patient was formally placed on the waitlist at [facility], no available bed date at this time - Pt updated on status of [facility] referral, also updated that we were informed there is another Togolese-speaking patient on the unit she will be admitted to and they have two Togolese-speaking staff/interpreters on service. 10/13 - Continue current medication regimen - maintenance injection of Invega Sustenna due 10/14 - Awaiting bed date at [facility] 10/14 - Continue current treatment plan - Pt tolerated first maintenance injection of Invega Sustenna ordered for today - will be due again on 11/11 for next maintenance injection - Awaiting bed date and transfer to [facility] - Pt continues to be too delusional and agitated to tolerate a visit outside, will continue to assess (2) Noncompliance with medication regimen: 09/02 - Unable to clarify if pt has been taking her medications regularly in the days since discharge. She at first indicated that she was not then indicated the medications arein a bag of hers but did not indicate actually taking them. The patient also claims to not recall the names of any of her medications and reports that she does not have the conditions for which her known medications are clearly intended. Possible cognitive impairments. might be impacting medication compliance. language impairments with pt not speaking Czech impacting compliance concerns. -The patient's underlying psychiatric condition will be actively treated. It is hoped that with treatment we will be able to improve medication compliance and also address aspects that impact compliance and improve this with appropriate interventions. CANTOR form of Invega to be continued at this time, next dose not due for another 2 weeks. Pt took meds this morning that were offered to her but given her extensive non compliance prior to, during and seeming after recent admission and lack of insight to her dx and presentation and indicating that recent hospitalization was quite helpful for her and her indicating wanting to continue her medications as was rx' at end of recent [facility] admission and were instructed to take at that discharge. I am in favor of medication over objection if pt objects to taking her medication during the course of this admission or if it is determined that pt is checking or not actually taking her medications. (3) Homeless: 09/03/19 -In the past, the patient has lived with family members. However, this is clearly not an option at the present time. The context is that the patient reportedly was in long term for approximately a year because of her making terroristic threats against the family. While it does seem clear that the fa jay wants to help protect her, they are unable to safely provide group home. Given the patient's history of neglect of self-care, medication nonadherence, and possible cognitive deficits we are going to investigate structured residential programs as part of our discharge planning. 09/03 -patient has consistently refused assistance with housing, insisting that she has a house in [place], although has not been able to provide an address and her family states this is not true. 09/06 - Patient's grandson called unit yesterday to provide additional information, stating the patient has been homeless for quite some time and there is no valid address for the patient 09/29 pt remains delusional about having a home and is agitated if this is approached or challenged in anyway 09/30 did not discuss further today as this is a point of delusion and been shown to be refractory to challenging in anyway (4) Involuntary commitment: 09/03 -patient on a 304 IOC, readmitted on a 302. We will file for a 306 conversion hearing. 09/04 - 306 hearing scheduled for 09/05; anticipate referral to [facility]. 09/05 -306 conversion granted, now here on a 304 involuntary commitment. 09/07 - Referral packet sent to [facility] on 09/06 (5) Nicotine abuse: 09/02 - Nicotine Patch 7mg topical daily resumed, and smoking cessation to be done when pt is in more apposite mental state to do so Inventory Assets Strengths: concerned family members, pleasant on approach Needs: stable housing, improved compliance to medication and treatment plan. Risk Factors Assessment Male: No : No Do You Have Access To A Gun?: No Health Problems: No Mental Health Diagnoses: Yes Substance Use Disorders: No Previous Attempt: Yes (Per family, patient denies) Previous Psychiatric Hospitalization: Yes Hopelessness: No Smoker: Yes Protective Factors Assessment : No Responsible for Young Children: No Employed: No Stable Relationships: No Supportive Family: No Good Rapport with Provider: No Interval History Identifying Information ANDREW CYR is a 64-year-old F who currently is homeless in [facility], has a history of schizoaffective disorder, bipolar type, and was admitted on 09/03/19 05:42 on a 302 involuntary commitment for psychosis, suicidal idea tion, inability to provide for basic needs, and medication noncompliance. Chief Complaint "Good. Thank you." Review of Systems Notes Constitutional: denied Cardiovascular: denied Respiratory: denied Gastrointestinal: denied Neurological: denied Psychiatric: denies symptoms other than stated above Total of at least 10 systems reviewed, pertinent positives as above and in HPI. Sleep Information Total Hours of Sleep: 8.25 Sleep Comments: pt on q-15 minute checks Meal Information Percent Meal Consumed - Breakfast: 100 Percent Meal Consumed - Lunch: 100 Percent Meal Consumed - Dinner: 100 Nutrition Comment: documented from the pt. meal record Subjective Subjective Patient was seen & assessed and interval progress reviewed with nursing and social work. Staff report the patient continues to be intermittently irritable, often speaking/yelling in her room by herself. Last evening, the patient disclosed to staff that she is aware she is here at the orders of President Alonso and there is a misbelief that the patient stole his watch. She assures us that she is innocent of this, she misses her family, and continues to request discharge. Pt was seen today to assess progress since admission. Togolese- Czech conversation was conducted with assistance from [facility] interpretive service - [facility] #[id number]. Pt states that today she is "Good. Thank you." Pt denies any concerns or things she would like to discuss today. She denies physical concerns presently. Pt tolerates a superficial conversation, though throughout the day has been observed to be pacing her room, yelling loudly to herself, and seems to be responding to internal stimuli. She denies specific needs or concerns today. Physical Exam Psychiatric Orientation: alert and + guarded (only superficially cooperative ) Apperance: appropriately dressed (casually; wearing t-shirt and leggings), + disheveled (hair appearing more unkempt than usual) and appeared stated age Eye Contact: + fair eye contact Motor Behavior: no abnormal motor movements (observed while sitting on edge of bed) Speech: normal rate/rhythm/volume of speech (brief, superficial responses to questions) Affect: + blunted affect (appearing either subdued, or irritable/angery - depending on time of day); + mood not congruent with affect Mood: no depressed mood ("Good") Thought Process: + concrete thought process; + thought process not linear or logical and + thought process not clear or coherent Thought Content: + paranoid, + delusions (believes she is being held here for steal President Alonso's watch) and + persecution Hallucinations: continues to be observed to be responding to internal stimuli, yelling and carrying on conversations when in her room alone Cognition: attention grossly intact and language grossly intact Insight: + severely impaired insight Judgement: + severely impaired judgement Vital Signs (Past 24 Hours) Last Vital Signs Temp 36.7 C 10/15/19 06:42 Pulse 76 10/15/19 06:44 Resp 18 10/15/19 06:42 BP 134/86 10/15/19 06:44 Pulse Ox 95 09/03/19 05:47 Results & Data ([facility]) Current Inpatient Medications Current Inpatient Medications: Current Inpatient Medications Acetaminophen (Tylenol) 650 mg PO Q4H PRN PRN Reason: Headache or Minor Fever Stop: 11/02/19 08:46 Al Hydrox/Mg Hydrox/Simethicone (Maalox) 30 ml PO Q4H PRN PRN Reason: GI Upset Stop: 11/02/19 08:46 Bismuth Subsalicylate (Kaopectate) 15 ml PO PRN PRN PRN Reason: Loose Stool Stop: 11/02/19 08:46 Clotrimazole (Lotrimin 1%) 1 appln EXT BID CLARISA Stop: 10/24/19 20:59 Last Admin: 10/14/19 21:28 Dose: 1 appln Documented by: Docusate Sodium (Colace) 100 mg PO BID CLARISA Stop: 11/02/19 20:59 Last Admin: 10/14/19 21:27 Dose: 100 mg Documented by: Haloperidol (Haldol) 5 mg PO Q6H PRN PRN Reason: Agitation/Psychosis Stop: 11/04/19 15:13 Hydroxyzine HCl (Vistaril) 50 mg PO HSZ PRN PRN Reason: Insomnia Stop: 11/02/19 08:46 Hydroxyzine HCl (Vistaril) 25 mg PO Q4H PRN PRN Reason: Anxiety Stop: 11/02/19 08:46 Levothyroxine Sodium (Synthroid) 75 mcg PO DAILYBB CLARISA Stop: 11/02/19 07:59 Last Admin: 10/14/19 07:38 Dose: 75 mcg Documented by: [place] Carbonate (Eskalith) 450 mg PO BID CLARISA Stop: 11/02/19 08:59 Last Admin: 10/14/19 21:27 Dose: 450 mg Documented by: Magnesium Hydroxide (Milk Of Magnesia) 30 ml PO DAILY PRN PRN Reason: Constipation Stop: 11/02/19 08:46 Paliperidone Palmitate (Invega Sustenna) 234 mg IM Q4WK CLARISA Stop: 11/14/19 08:59 Simvastatin (Zocor) 10 mg PO HS CLARISA Stop: 11/02/19 21:59 Last Admin: 10/14/19 21:27 Dose: 10 mg Documented by: Sodium Chloride ([place] Nasal) 1 - 2 sprays NA PRN PRN PRN Reason: Nasal Dryness/Congestion Stop: 11/02/19 08:46 Mental Health & Subst Abuse Tx Psychiatrist Name of Psychiatrist: . Psychiatrist's Phone Number: . Date of Appointment with Psychiatrist: 09/14/19 Time of Appointment with Psychiatrist: . Psychiatric Appointment Comment: . Therapist Name of Therapist: . Wage And Salary Specialist Name of Wage And Salary Specialist: [employer] - Lizzy Pandey Phone Number for Wage And Salary Specialist: [phone] Post Discharge Appointments Primary Care Physician Name Of Family Doctor: [facility] Primary Care Provider Appointment Comment: [id number], [address], [place] [address]
[2019-10-15] MEDS: LITHIUM CARBONATE 450 MG TABCR PO SCH ×2 (08:18→20:43)
[2019-10-15] MEDS: DOCUSATE SODIUM 100 MG CAP PO SCH ×2 (08:18→20:43)
[2019-10-15] MEDS: CLOTRIMAZOLE 1% CR 15 GM TUBE EXT SCH ×2 (08:18→20:44)
[2019-10-15] MEDS: LEVOTHYROXINE SODIUM 75 MCG TABLET PO SCH (08:18)
[2019-10-15] MEDS ORDERED: PALIPERIDONE PALMITATE 234 MG/1.5 ML SYR IM SCH ×2 (09:00→11:00)
[2019-10-15] MEDS: haloperidoL 5 MG TAB PO PRN (13:35)
[2019-10-15] MEDS: SIMVASTATIN 10 MG TAB PO SCH (20:44)
[2019-10-16] MEDS: LEVOTHYROXINE SODIUM 75 MCG TABLET PO SCH (08:05)
[2019-10-16] MEDS: CLOTRIMAZOLE 1% CR 15 GM TUBE EXT SCH ×2 (08:05→20:33)
[2019-10-16] MEDS: LITHIUM CARBONATE 450 MG TABCR PO SCH ×2 (08:05→20:33)
[2019-10-16] MEDS: DOCUSATE SODIUM 100 MG CAP PO SCH ×2 (08:05→20:32)
[2019-10-16] MEDS: haloperidoL 5 MG TAB PO PRN (08:18)
--- NOTE | 2019-10-16 10:13 | Psychiatric Progress Note ---
Date of Service October 16, 2019 Impression / Recommendations Impression 63-year-old Naur[place] female with schizoaffective disorder bipolar type admitted on a 302 commitment 4 days after being discharged from this unit on 08/29 after a 27-day hospitalization. She was discharged on a 304 IOC, and returned to the ER later that same day, after police were called due to bizarre behavior at a local grocery store, and was again discharged. Readmitted several days later with psychotic symptoms including paranoia, delusions of persecution (that people were trying to poison/harm her), refusing to eat with hypokalemia, homelessness, delusions that she owns a home, and inability to provide for her own basic needs. Additionally, family members who petitioned reported she made suicidal statements and walked into traffic, and reported delusions that her son had stabbed her in her intestines were hanging out. They also reported she had been noncompliant with oral psychotropic medications, and although her shelter case manager assisted her to fill these on the day of discharge, she did not bring them into the hospital with her and says she does not know where they are. She has repeatedly demonstrated complete inability to provide for her own basic needs outside of the hospital, including health, welfare, fci, food, and safety. Inpatient treatment is medically necessary due to the severity of her symptoms and risk for suicide if discharged. She is now on a 304 involuntary commitment, has been started on Invega Sustenna, and has been referred to the [facility] long-term inpatient treatment. Referral was made on 09/07/2019, received update on 10/12/2019 that patient is officially on the waitlist - specific bed date remains uncertain at this time. Pt updated with this information. Patient isolative in her room but remains delusional with believes that she has a home in [place] she can return to, and therefore continues to be uncooperative with appropriate discharge planning. (1) Schizoaffective disorder, bipolar type: 09/03/19 -The patient has been admitted to the locked, secured behavioral health unit and has been placed in special observation room. She is also being monitored with close observations and every 15-minute direct observation. When more stable she will be actively encouraged to participate in individual, group, and activity therapies. We will also attempt to involve the family if the patient permits us to and if they agree. - Resuming medications as was rx'd at time of discharge on 08/29 including po Invega, lithium, and Sustenna. 09/03 -continue current medications, patient is taking them. -File for 306 conversion hearing to be held 09/06/2019. She will likely need referral to the [facility] due to the need for long-term inpatient treatment. -Reviewed FLP and FG from recent hospitalization 08/07/2019: Cholesterol 221, glucose 109, other values within normal limits. -Attempt to involve family is able; son-in-law Poli is petitioner and was involved in hospitalization so we will ask staff to contact him for collateral information and to determine the family's ability to assist with discharge planning and housing. She has very limited supports in the community and if they are unable to assist her with housing and care, she will likely require long-term hospitalization. -Continue private room for psychosis. 09/04 - Continue current medication regimen - patient has been compliant with medications in this structured environment - 306 conversion hearing scheduled for 09/05 - Meeting with shelter case manager today to discuss treatment options and continue attempts to build rapport - Referral to [facility] is being recommended at this time has patient has repeatedly demonstrated an inability to care for self and provide for basic needs without the support of a structured psychiatric setting. - EKG (WNL). PPD was refused by patient - CXR ordered 09/05 -306 hearing held and patient converted to a 304 involuntary commitment. -Referred to [facility] for long-term inpatient treatment, as patient is severely ill and unable to provide for her own basic needs as a result of her mental illness, and treatment for 27 days on our acute unit was insufficient for successful transition to the community. She was at [facility] for 4 months within the past year, and did respond to treatment there, so returned to the [facility] as recommended for long-term treatment of SPMI. -EKG and chest x-ray completed for state hospital referral. 09/06 - Continue current medication regimen - Referral to [facility] is being prepared, approval was reportedly received from the county - Ongoing attempt to build rapport with psychiatric shelter case manager 09/07 - 09/09 - Continue current medication regimen - Referral sent to [facility] on 09/07/2019 for recommended long- term psychiatric hospitalization based on chronic medication/treatment non- compliance and repeated demonstration of inability to care for self outside of a structured psychiatric setting. - Pt was informed of [facility] referral today during encounter 09/10 - Continue current medication regimen - [facility] referral sent on 09/07/2019 - requesting updates regarding when case is anticipated to be reviewed and ensure information was received - Pt continues to demand to leave, unable to appreciated the severity of her condition. Ongoing concern related to patient's repeated demonstration of inability to care for self outside of a structured psychiatric setting. 09/11 - Continue current medication regimen - Awaiting acceptance at [facility]. Ongoing concern related to patient's repeated demonstration of inability to care for self outside of a structured psychiatric setting. 09/12 - 09/14 - Pt due for next injection of Invega Sustenna 234mg IM on 09/16. Oral supplementation was continued from last hospitalization due to concern for ongoing instability with regard to psychotic symptoms. In preparation for first maintenance dose, will reduce oral supplementation to 3mg qAM and discontinue oral paliperidone on 09/16. Continue lithium 450mg BID unchanged. - Awaiting replay for [facility] regarding referral. Ongoing concern related to patient's repeated demonstration of inability to care for self outside of a structured psychiatric setting. Pt has consistently not been agreeable to diversion planning as a result of fixed delusional beliefs that she has family support, that she has a house to live in, and that she has a lot of money - none of these statements confirmed to be true. 09/15 -Continue treatment plan as previously prescribed 09/16 -now fully converted to invega sustenna. 09/17 - Continue current treatment plan 09/18 - 09/20 - Continue current treatment plan - Confirmed that information from patient's hospitalization at our facility was received by [facility], but case has not yet been reviewed. Still awaiting determination of acceptance status. 09/21 - continue current meds and tx plan. Reinstitute medically necessary private room as hx of aggression, labile mood, poor ability to keep contact precautions with COVID, hx homelessness higher risk category 09/22 - 09/23 - continue current meds and tx plan. 09/24 continue current meds and tx plan. MNPR for now as less paranoid and more visible on unit. 09/25 - Continue current treatment plan - patient remains irritable, paranoid, and delusional - Continue MNPR for paranoia and irritability 09/26 - Continue current treatment plan - Still awaiting response from [facility], 3 weeks after initially referral packet was sent - Pt did reportedly complete her Medical Assistance application. Consider repeat meeting with the county to discuss options for diversion planning; though these remain very limited - As review of patient's treatment plan has historically been very upsetting to the patient, discharge plans have not changed, and the therapeutic value of the review is limited - discussed with patient who did agree to review her treatment plan once a week unless there are changes in the interim. This was confirmed by multiple parties and can be reviewed with greater frequency at which time patient better tolerates the conversation and the therapeutic value is increased. 09/27 - 10/01 - Continue current treatment plan - Still awaiting response from [facility] - Pt is unwilling to consider alternative housing options - she maintains the delusion that she has a penthouse in [place] which has been confirmed to be untrue. 10/02 - Continue as above - medications renewed - Still awaiting response from [facility] - Pt maintains fixed delusions that are interfering significantly with patient's ability to adequately care for herself outside of a structured/supervised setting 10/03 - Continue current medication regimen - 30-day treatment review; treatment plan reviewed with patient who did become angry when length of stay was reviewed. Again became acutely agitated during conversation with provider today - Pt demonstrated very loud yelling, acute agitation, and inability to appropriately communicate frustration. These concerns, in addition to numerous failed attempts at discharge, continue to be evidence as to why patient is not appropriate to be discharged to the community. - Pt is not appropriate to go outside based on episodes of acute agitation and continued delusions which interfere with patient's ability to ensure appropriate behavior 10/04 - 10/05 - Continue current medication regimen - Pt remains inappropriate to go outside - Plan remains for transfer to the [facility] - no response regarding acceptance 10/06 - 10/07 -continue current plan. Amended court order to be obtained Wednesday and sent to the [facility] for acceptance and put patient on their wait list. 10/08 - 10/10 - continue current plan. Discharge plan continues to be placement at [facility] - Pt continues to be inappropriate to go outside based on continued demands for discharge, delusional thought content, and concerns for elopement risk if taken outside the hospital setting 10/11 - Continue current treatment plan - anticipated discharge to [facility] - Did review in detail expectations related to ability to go outside. Expectations were provided to patient, who initially verbalized understanding and repeated them back to this provider. Unfortunately, when expectations were reviewed right before attempt to go outside, patient escalated and demanded discharge and stated she was not going to the [facility]. Based on this behavior, it was deemed patient was not appropriate to go outside today. - Received amended court order to reflect updated 304 commitment to [facility] - following up to formally place patient on the waitlist 10/12 - Continue current medication regimen - pt due for next Invega Sustenna injection on 10/14 - Received confirmation that patient was formally placed on the waitlist at [facility], no available bed date at this time - Pt updated on status of [facility] referral, also updated that we were informed there is another Belgian-speaking patient on the unit she will be admitted to and they have two Belgian-speaking staff/interpreters on service. 10/13 - Continue current medication regimen - maintenance injection of Invega Sustenna due 10/14 - Awaiting bed date at [facility] 10/14 - Continue current treatment plan - Pt tolerated first maintenance injection of Invega Sustenna ordered for today - will be due again on 11/11 for next maintenance injection - Awaiting bed date and transfer to [facility] - Pt continues to be too delusional and agitated to tolerate a visit outside, will continue to assess 10/15 - Continue current treatment plan - Awaiting bed date and transfer to [facility] (2) Noncompliance with medication regimen: 09/02 - Unable to clarify if pt has been taking her medications regularly in the days since discharge. She at first indicated that she was not then indicated the medications arein a bag of hers but did not indicate actually taking them. The patient also claims to not recall the names of any of her medications and reports that she does not have the conditions for which her known medications are clearly intended. Possible cognitive impairments. might be impacting medication compliance. language impairments with pt not speaking Turkish impacting compliance concerns. -The patient's underlying psychiatric condition will be actively treated. It is hoped that with treatment we will be able to improve medication compliance and also address aspects that impact compliance and improve this with appropriate interventions. CANTOR form of Invega to be continued at this time, next dose not due for another 2 weeks. Pt took meds this morning that were offered to her but given her extensive non compliance prior to, during and seeming after recent admission and lack of insight to her dx and presentation and indicating that recent hospitalization was quite helpful for her and her indicating wanting to continue her medications as was rx' at end of recent [facility] admission and were instructed to take at that discharge. I am in favor of medication over objection if pt objects to taking her medication during the course of this admission or if it is determined that pt is checking or not actually taking her medications. (3) Homeless: 09/03/19 -In the past, the patient has lived with family members. However, this is clearly not an option at the present time. The context is that the patient reportedly was in group home for approximately a year because of her making terroristic threats against the family. While it does seem clear that the family wants to help protect her, they are unable to safely provide fci. Given the patient's history of neglect of self-care, medication nonadherence, and possible cognitive deficits we are going to investigate structured residential programs as part of our discharge planning. 09/03 -patient has consistently refused assistance with housing, insisting that she has a house in [place], although has not been able to provide an address and her family states this is not true. 09/06 - Patient's grandson called unit yesterday to provide additional information, stating the patient has been homeless for quite some time and there is no valid address for the patient 09/29 pt remains delusional about having a home and is agitated if this is approached or challenged in anyway 09/30 did not discuss further today as this is a point of delusion and been shown to be refractory to challenging in anyway (4) Involuntary commitment: 09/03 -patient on a 304 IOC, readmitted on a 302. We will file for a 306 conversion hearing. 09/04 - 306 hearing scheduled for 09/05; anticipate referral to [facility]. 09/05 -306 conversion granted, now here on a 304 involuntary commitment. 09/07 - Referral packet sent to [facility] on 09/06 (5) Nicotine abuse: 09/02 - Nicotine Patch 7mg topical daily resumed, and smoking cessation to be done when pt is in more apposite mental state to do so Inventory Assets Strengths: concerned family members, pleasant on approach Needs: stable housing, improved compliance to medication and treatment plan. Risk Factors Assessment Male: No : No Do You Have Access To A Gun?: No Health Problems: No Mental Health Diagnoses: Yes Substance Use Disorders: No Previous Attempt: Yes (Per family, patient denies) Previous Psychiatric Hospitalization: Yes Hopelessness: No Smoker: Yes Protective Factors Assessment : No Responsible for Young Children: No Employed: No Stable Relationships: No Supportive Family: No Good Rapport with Provider: No Interval History Identifying Information ANDREW CYR is a 64-year-old F who currently is homeless in [facility], has a history of schizoaffective disorder, bipolar type, and was admitted on 09/03/19 05:42 on a 302 involuntary commitment for psychosis, suicidal ideation, inability to provide for basic needs, and medication noncompliance. Chief Complaint "No, no, no, no, no." Review of Systems Notes Pt rather uncooperative with visit, but does deny any physical concerns. Sleep Information Total Hours of Sleep: 6.5 Sleep Comments: pt on q-15 minute checks Meal Information Percent Meal Consumed - Breakfast: 100 Percent Meal Consumed - Lunch: 100 Percent Meal Consumed - Dinner: 100 Nutrition Comment: documented from the pt. meal record Subjective Subjective Patient was seen & assessed and interval progress reviewed with treatment team. Staff report the patient continues to demonstrate a labile mood - this morning was yelling in her room speaking loudly to herself, and then later demonstrating euphoric mood and interacting with a staff member in the hallway. Pt continues to verbalize a focus on discharge and demonstrates limited insight into current discharge plan. She remains delusional. This provider attempted usual meeting with patient. When entering her room with the interpretive device, patient stated "No, no, no, no, no." Pt declined to utilize the interpretive device, but had a very simple conversation with this provider in Belgian. This provider inquired "porque [why]?" Pt responded with a rather lengthy comment in Belgian. Admittedly, this provider has limited knowledge of the Belgian language, so cannot comment on much of the conversation without the use of the craps manager. What could be understood is that the patient says she is "good" and "no problems", she repeats in Turkish "everything good, everything good." This provider inquired how to say 'later' in Belgian, but patient only responded with "no, no, no. No mas [no more]." Physical Exam Psychiatric Orientation: alert and + guarded (uncooperative) Apperance: appropriately dressed (casually, in t-shirt and legginges) and + disheveled Eye Contact: + poor eye contact (avoiding direct eye contact) Motor Behavior: no abnormal motor movements (observed while pacing room) Speech: + loud speech (yelling, irritable tone) Affect: + labile affect and + irritable affect Thought Process: + perseveration and + concrete thought process Thought Content: + paranoid, + delusions and + persecution Hallucinations: continues to appear to be responding to internal stimuli. Laughing or yelling loudly when in her room alone Cognition: attention grossly intact and language grossly intact Insight: + severely impaired insight Judgement: + severely impaired judgement Vital Signs (Past 24 Hours) Last Vital Signs Temp 36.4 C L 10/16/19 06:28 Pulse 80 10/16/19 06:28 Resp 16 10/16/19 06:28 BP 147/87 H 10/16/19 06:28 Pulse Ox 95 09/03/19 05:47 Results & Data ([facility]) Current Inpatient Medications Current Inpatient Medications: Current Inpatient Medications Acetaminophen (Tylenol) 650 mg PO Q4H PRN PRN Reason: Headache or Minor Fever Stop: 11/02/19 08:46 Al Hydrox/Mg Hydrox/Simethicone (Maalox) 30 ml PO Q4H PRN PRN Reason: GI Upset Stop: 11/02/19 08:46 Bismuth Subsalicylate (Kaopectate) 15 ml PO PRN PRN PRN Reason: Loose Stool Stop: 11/02/19 08:46 Clotrimazole (Lotrimin 1%) 1 appln EXT BID CLARISA Stop: 10/24/19 20:59 Last Admin: 10/16/19 08:05 Dose: 1 appln Documented by: Docusate Sodium (Colace) 100 mg PO BID CLARISA Stop: 11/02/19 20:59 Last Admin: 10/16/19 08:05 Dose: 100 mg Documented by: Haloperidol (Haldol) 5 mg PO Q6H PRN PRN Reason: Agitation/Psychosis Stop: 11/04/19 15:13 Last Admin: 10/16/19 08:18 Dose: 5 mg Documented by: Hydroxyzine HCl (Vistaril) 50 mg PO HSZ PRN PRN Reason: Insomnia Stop: 11/02/19 08:46 Hydroxyzine HCl (Vistaril) 25 mg PO Q4H PRN PRN Reason: Anxiety Stop: 11/02/19 08:46 Levothyroxine Sodium (Synthroid) 75 mcg PO DAILYBB CLARISA Stop: 11/02/19 07:59 Last Admin: 10/16/19 08:05 Dose: 75 mcg Documented by: [place] Carbonate (Eskalith) 450 mg PO BID CLARISA Stop: 11/02/19 08:59 Last Admin: 10/16/19 08:05 Dose: 450 mg Documented by: Magnesium Hydroxide (Milk Of Magnesia) 30 ml PO DAILY PRN PRN Reason: Constipation Stop: 11/02/19 08:46 Paliperidone Palmitate (Invega Sustenna) 234 mg IM Q28D@0900 CLARISA Stop: 11/14/19 10:59 Last Admin: 10/15/19 11:32 Dose: 234 mg Documented by: Simvastatin (Zocor) 10 mg PO HS CLARISA Stop: 11/02/19 21:59 Last Admin: 10/15/19 20:44 Dose: 10 mg Documented by: Sodium Chloride ([place] Nasal) 1 - 2 sprays NA PRN PRN PRN Reason: Nasal Dryness/Congestion Stop: 11/02/19 08:46 Mental Health & Subst Abuse Tx Psychiatrist Name of Psychiatrist: . Psychiatrist's Phone Number: . Date of Appointment with Psychiatrist: 09/14/19 Time of Appointment with Psychiatrist: . Psychiatric Appointment Comment: . Therapist Name of Therapist: . Technical Support Coordinator Name of Technical Support Coordinator: [facility] - Lizzy Pandey Phone Number for Technical Support Coordinator: [phone] Post Discharge Appointments Primary Care Physician Name Of Family Doctor: [facility] Primary Care Provider Appointment Comment: [address], [address], [place] [address]
[2019-10-16] MEDS: SIMVASTATIN 10 MG TAB PO SCH (20:34)
[2019-10-17] MEDS: LITHIUM CARBONATE 450 MG TABCR PO SCH ×2 (07:33→20:57)
[2019-10-17] MEDS: LEVOTHYROXINE SODIUM 75 MCG TABLET PO SCH (07:33)
[2019-10-17] MEDS: DOCUSATE SODIUM 100 MG CAP PO SCH ×2 (07:33→20:57)
[2019-10-17] MEDS: CLOTRIMAZOLE 1% CR 15 GM TUBE EXT SCH ×2 (08:34→20:57)
--- NOTE | 2019-10-17 09:07 | Psychiatric Progress Note ---
Date of Service October 17, 2019 Impression / Recommendations Impression 63-year-old [place] female with schizoaffective disorder bipolar type admitted on a 302 commitment 4 days after being discharged from this unit on 08/29 after a 27-day hospitalization. She was discharged on a 304 IOC, and returned to the ER later that same day, after police were called due to bizarre behavior at a local grocery store, and was again discharged. Readmitted several days later with psychotic symptoms including paranoia, delusions of persecution (that people were trying to poison/harm her), refusing to eat with hypokalemia, homelessness, delusions that she owns a home, and inability to provide for her own basic needs. Additionally, family members who petitioned reported she made suicidal statements and walked into traffic, and reported delusions that her son had stabbed her in her intestines were hanging out. They also reported she had been noncompliant with oral psychotropic medications, and although her telehealth case manager assisted her to fill these on the day of discharge, she did not bring them into the hospital with her and says she does not know where they are. She has repeatedly demonstrated complete inability to provide for her own basic needs outside of the hospital, including health, welfare, long-term, food, and safety. Inpatient treatment is medically necessary due to the severity of her symptoms and risk for suicide if discharged. She is now on a 304 involuntary commitment, has been started on Invega Sustenna, and has been referred to the [facility] long-term inpatient treatment. Referral was made on 09/07/2019, received update on 10/12/2019 that patient is officially on the waitlist - specific bed date remains uncertain at this time. Pt updated with this information. Patient isolative in her room but remains delusional with believes that she has a home in [place] she can return to, and therefore continues to be uncooperative with appropriate discharge planning and is not demonstrating ability to tolerate community re-entry. (1) Schizoaffective disorder, bipolar type: 09/03/19 -The patient has been admitted to the locked, secured behavioral health unit and has been placed in special observation room. She is also being monitored with close observations and every 15-minute direct observation. When more stable she will be actively encouraged to participate in individual, group, and activity therapies. We will also attempt to involve the family if the patient permits us to and if they agree. - Resuming medications as was rx'd at time of discharge on 08/29 including po Invega, lithium, and Sustenna. 09/03 -continue current medications, patient is taking them. -File for 306 conversion hearing to be held 09/06/2019. She will [facility] need [facility] due to the need for long-term inpatient treatment. -Reviewed FLP and FG from recent hospitalization 08/07/2019: Cholesterol 221, glucose 109, other values within normal limits. -Attempt to involve family is able; son-in-law Poli is petitioner and was involved in hospitalization so we will ask staff to contact him for collateral information and to determine the family's ability to assist with discharge planning and housing. She has very limited supports in the community and if they are unable to assist her with housing and care, she will likely require long-term hospitalization. -Continue private room for psychosis. 09/04 - Continue current medication regimen - patient has been compliant with medications in this structured environment - 306 conversion hearing scheduled for 09/05 - Meeting with telehealth case manager today to discuss treatment options and continue attempts to build rapport - Referral to [facility] is being recommended at this time has patient has repeatedly demonstrated an inability to care for self and provide for basic needs without the support of a structured psychiatric setting. - EKG (WNL). PPD was refused by patient - CXR ordered 09/05 -306 hearing held and patient converted to a 304 involuntary commitment. -Referred to [facility] for long-term inpatient treatment, as patient is severely ill and unable to provide for her own basic needs as a result of her mental illness, and treatment for 27 days on our acute unit was insufficient for successful transition to the community. She was at [facility] for 4 months within the past year, and did respond to treatment there, so [facility] for long-term treatment of SPMI. -EKG and chest x-ray completed for state hospital referral. 09/06 - Continue current medication regimen - Referral to [facility] is being prepared, approval was reportedly received from the county - Ongoing attempt to build rapport with psychiatric telehealth case manager 09/07 - 09/09 - Continue current medication regimen - Referral sent to [facility] on 09/07/2019 for recommended long- term psychiatric hospitalization based on chronic medication/treatment non- compliance and repeated demonstration of inability to care for self outside of a structured psychiatric setting. - Pt was informed of [facility] referral today during encounter 09/10 - Continue current medication regimen - [facility] referral sent on 09/07/2019 - requesting updates regarding when case is anticipated to be reviewed and ensure information was received - Pt continues to demand to leave, unable to appreciated the severity of her condition. Ongoing concern related to patient's repeated demonstration of inability to care for self outside of a structured psychiatric setting. 09/11 - Continue current medication regimen - Awaiting acceptance at [facility]. Ongoing concern related to patient's repeated demonstration of inability to care for self outside of a structured psychiatric setting. 09/12 - 09/14 - Pt due for next injection of Invega Sustenna 234mg IM on 09/16. Oral supplementation was continued from last hospitalization due to concern for ongoing instability with regard to psychotic symptoms. In preparation for first maintenance dose, will reduce oral supplementation to 3mg qAM and discontinue oral paliperidone on 09/16. Continue lithium 450mg BID unchanged. - Awaiting replay for [facility] regarding referral. Ongoing concern related to patient's repeated demonstration of inability to care for self outside of a structured psychiatric setting. Pt has consistently not been agreeable to diversion planning as a result of fixed delusional beliefs that she has family support, that she has a house to live in, and that she has a lot of money - none of these statements confirmed to be true. 09/15 -Continue treatment plan as previously prescribed 09/16 -now fully converted to invega sustenna. 09/17 - Continue current treatment plan 09/18 - 09/20 - Continue current treatment plan - Confirmed that information from patient's hospitalization at our facility was received by [facility], but case has not yet been reviewed. Still awaiting determination of acceptance status. 09/21 - continue current meds and tx plan. Reinstitute medically necessary private room as hx of aggression, labile mood, poor ability to keep contact precautions with COVID, hx homelessness higher risk category 09/22 - 09/23 - continue current meds and tx plan. 09/24 continue current meds and tx plan. MNPR for now as less paranoid and more visible on unit. 09/25 - Continue current treatment plan - patient remains irritable, paranoid, and delusional - Continue MNPR for paranoia and irritability 09/26 - Continue current treatment plan - Still awaiting response from [facility], 3 weeks after initially referral packet was sent - Pt did reportedly complete her Medical Assistance application. Consider repeat meeting with the county to discuss options for diversion planning; though these remain very limited - As review of patient's treatment plan has historically been very upsetting to the patient, discharge plans have not changed, and the therapeutic value of the review is limited - discussed with patient who did agree to review her treatment plan once a week unless there are changes in the interim. This was confirmed by multiple parties and can be reviewed with greater frequency at which time patient better tolerates the conversation and the therapeutic value is increased. 09/27 - 10/01 - Continue current treatment plan - Still awaiting response from [facility] - Pt is unwilling to consider alternative housing options - she maintains the delusion that she has a penthouse in [place] which has been confirmed to be untrue. 10/02 - Continue as above - medications renewed - Still awaiting response from [facility] - Pt maintains fixed delusions that are interfering significantly with patient's ability to adequately care for herself outside of a structured/supervised setting 10/03 - Continue current medication regimen - 30-day treatment review; treatment plan reviewed with patient who did become angry when length of stay was reviewed. Again became acutely agitated during conversation with provider today - Pt demonstrated very loud yelling, acute agitation, and inability to appropriately communicate frustration. These concerns, in addition to numerous failed attempts at discharge, continue to be evidence as to why patient is not appropriate to be discharged to the community. - Pt is not appropriate to go outside based on episodes of acute agitation and continued delusions which interfere with patient's ability to ensure appropriate behavior 10/04 - 10/05 - Continue current medication regimen - Pt remains inappropriate to go outside - Plan remains for transfer to the [facility] - no response regarding acceptance 10/06 - 10/07 -continue current plan. Amended court order to be obtained Wednesday and sent to the [facility] for acceptance and put patient on their wait list. 10/08 - 10/10 - continue current plan. Discharge plan continues to be placement at [facility] - Pt continues to be inappropriate to go outside based on continued demands for discharge, delusional thought content, and concerns for elopement risk if taken outside the hospital setting 10/11 - Continue current treatment plan - anticipated discharge to [facility] - Did review in detail expectations related to ability to go outside. Expectations were provided to patient, who initially verbalized understanding and repeated them back to this provider. Unfortunately, when expectations were reviewed right before attempt to go outside, patient escalated and demanded discharge and stated she was not going to the [facility]. Based on this behavior, it was deemed patient was not appropriate to go outside today. - Received amended court order to reflect updated 304 commitment to [facility] - following up to formally place patient on the waitlist 10/12 - Continue current medication regimen - pt due for next Invega Sustenna injection on 10/14 - Received confirmation that patient was formally placed on the waitlist at [facility], no available bed date at this time - Pt updated on status of [facility] referral, also updated that we were informed there is another German-speaking patient on the unit she will be admitted to and they have two German-speaking staff/interpreters on service. 10/13 - Continue current medication regimen - maintenance injection of Invega Sustenna due 10/14 - Awaiting bed date at [facility] 10/14 - Continue current treatment plan - Pt tolerated first maintenance injection of Invega Sustenna ordered for today - will be due again on 11/11 for next maintenance injection - Awaiting bed date and transfer to [facility] - Pt continues to be too delusional and agitated to tolerate a visit outside, will continue to assess 10/15 - 10/16 - Continue current treatment plan - Awaiting bed date and transfer to [facility] (2) Noncompliance with medication regimen: 09/02 - Unable to clarify if pt has been taking her medications regularly in the days since discharge. She at first indicated that she was not then indicated the medications arein a bag of hers but did not indicate actually taking them. The patient also claims to not recall the names of any of her medications and reports that she does not have the conditions for which her known medications are clearly intended. Possible cognitive impairments. might be impacting medication compliance. language impairments with pt not speaking Tuvaluan impacting compliance concerns. -The patient's underlying psychiatric condition will be actively treated. It is hoped that with treatment we will be able to improve medication compliance and also address aspects that impact compliance and improve this with appropriate interventions. CANTOR form of Invega to be continued at this time, next dose not due for another 2 weeks. Pt took meds this morning that were offered to her but given her extensive non compliance prior to, during and seeming after recent admission and lack of insight to her dx and presentation and indicating that recent hospitalization was quite helpful for her and her indicating wanting to continue her medications as was rx' at end of recent [facility] admission and were instructed to take at that discharge. I am in favor of medication over objection if pt objects to taking her medication during the course of this admission or if it is determined that pt is checking or not actually taking her medications. 10/16 - Pt has continued to tolerate Invega Sustenna maintenance injections. Last received injection on 10/15/2019, due for next injections of 234mg IM on 11/11 (3) Homeless: 09/03/19 -In the past, the patient has lived with family members. However, this is clearly not an option at the present time. The context is that the patient reportedly was in [facility] for approximately a year because of her making terroristic threats against the family. While it does seem clear that the family wants to help protect her, they are unable to safely provide long-term. Given the patient's history of neglect of self-care, medication nonadherence, and possible cognitive deficits we are going to investigate structured residential programs as part of our discharge planning. 09/03 -patient has consistently refused assistance with housing, insisting that she has a house in [place], although has not been able to provide an address and her family states this is not true. 09/06 - Patient's grandson called unit yesterday to provide additional information, stating the patient has been homeless for quite some time and there is no valid address for the patient 09/29 pt remains delusional about having a home and is agitated if this is approached or challenged in anyway 09/30 did not discuss further today as this is a point of delusion and been shown to be refractory to challenging in anyway (4) Involuntary commitment: 09/03 -patient on a 304 IOC, readmitted on a 302. We will file for a 306 conversion hearing. 09/04 - 306 hearing scheduled for 09/05; anticipate referral to [facility]. 09/05 -306 conversion granted, now here on a 304 involuntary commitment. 09/07 - Referral packet sent to [facility] on 09/06 (5) Nicotine abuse: 09/02 - Nicotine Patch 7mg topical daily resumed, and smoking cessation to be done when pt is in more apposite mental state to do so Inventory Assets Strengths: concerned family members, pleasant on approach Needs: stable housing, improved compliance to medication and treatment plan. Risk Factors Assessment Male: No : No Do You Have Access To A Gun?: No Health Problems: No Mental Health Diagnoses: Yes Substance Use Disorders: No Previous Attempt: Yes (Per family, patient denies) Previous Psychiatric Hospitalization: Yes Hopelessness: No Smoker: Yes Protective Factors Assessment : No Responsible for Young Children: No Employed: No Stable Relationships: No Supportive Family: No Good Rapport with Provider: No Interval History Identifying Information ANDREW CYR is a 64-year-old F who currently is homeless in [facility], has a history of schizoaffective disorder, bipolar type, and was admitted on 09/03/19 05:42 on a 302 involuntary commitment for psychosis, suicidal ideation, inability to provide for basic needs, and medication noncompliance. Chief Complaint "Noooooooo. No, no, no." Review of Systems Notes Pt uncooperative with interview - did not verbalize any physical complaints. Sleep Information Total Hours of Sleep: 4.25 Sleep Comments: pt on q-15 minute checks Meal Information Percent Meal Consumed - Breakfast: 100 Percent Meal Consumed - Lunch: 100 Percent Meal Consumed - Dinner: 100 Nutrition Comment: documented from the pt. meal record Subjective Subjective Patient was seen & assessed and interval progress reviewed with nursing and social work. Staff report the patient was not as labile throughout the morning and afternoon, but did respond to a situation involving another peer with some irritability and delusional statements last evening. Attempt was made today to see patient and assess progress since admission. Pt refused offer to utilize interpretive services. When this provider entered her room with iPad, the patient said "Noooooooo. No, no, no." This provider responded with "porque [why]?" Pt verbalized a response in German unable to be interpreted. This provider inquired "later?" in Tuvaluan, to which patient became more agitated and continued to repeat, "No, no, no." Based on observations of the patient throughout the day, she continues to pace around her room, stare out the window, or lay in bed. She continues to verbalize needs to staff when necessary, but otherwise has not reported complaints. She is regularly talking to herself in her room, sometimes in a rather animated and irritable tone. It is presumed that she continues to be responding to internal stimuli. Physical Exam Psychiatric Orientation: alert and + guarded (uncooperative) Apperance: appropriately dressed (casually, in t-shirt and leggings) and appropriately groomed Eye Contact: + poor eye contact (avoiding direct eye contact ) Motor Behavior: + psychomotor agitation (pacing ) Speech: normal rate/rhythm/volume of speech Affect: + irritable affect Hallucinations: pt continues to be observed to be responding to internal stimuli - yelling and laughing in her room alone Insight: + severely impaired insight Judgement: + severely impaired judgement Vital Signs (Past 24 Hours) Last Vital Signs Temp 36.7 C 10/17/19 06:43 Pulse 75 10/17/19 06:45 Resp 18 10/17/19 06:43 BP 130/80 10/17/19 06:45 Pulse Ox 95 09/03/19 05:47 Results & Data ([facility]) Current Inpatient Medications Current Inpatient Medications: Current Inpatient Medications Acetaminophen (Tylenol) 650 mg PO Q4H PRN PRN Reason: Headache or Minor Fever Stop: 11/02/19 08:46 Al Hydrox/Mg Hydrox/Simethicone (Maalox) 30 ml PO Q4H PRN PRN Reason: GI Upset Stop: 11/02/19 08:46 Bismuth Subsalicylate (Kaopectate) 15 ml PO PRN PRN PRN Reason: Loose Stool Stop: 11/02/19 08:46 Clotrimazole (Lotrimin 1%) 1 appln EXT BID [facility] Stop: 10/24/19 20:59 Last Admin: 10/17/19 08:34 Dose: 1 appln Documented by: Docusate Sodium (Colace) 100 mg PO BID CLARISA Stop: 11/02/19 20:59 Last Admin: 10/17/19 07:33 Dose: 100 mg Documented by: Haloperidol (Haldol) 5 mg PO Q6H PRN PRN Reason: Agitation/Psychosis Stop: 11/04/19 15:13 Last Admin: 10/16/19 08:18 Dose: 5 mg Documented by: Hydroxyzine HCl (Vistaril) 50 mg PO HSZ PRN PRN Reason: Insomnia Stop: 11/02/19 08:46 Hydroxyzine HCl (Vistaril) 25 mg PO Q4H PRN PRN Reason: Anxiety Stop: 11/02/19 08:46 Levothyroxine Sodium (Synthroid) 75 mcg PO DAILYBB CLARISA Stop: 11/02/19 07:59 Last Admin: 10/17/19 07:33 Dose: 75 mcg Documented by: [place] Carbonate (Eskalith) 450 mg PO BID CLARISA Stop: 11/02/19 08:59 Last Admin: 10/17/19 07:33 Dose: 450 mg Documented by: Magnesium Hydroxide (Milk Of Magnesia) 30 ml PO DAILY PRN PRN Reason: Constipation Stop: 11/02/19 08:46 Paliperidone Palmitate (Invega Sustenna) 234 mg IM Q28D@0900 CLARISA Stop: 11/14/19 10:59 Last Admin: 10/15/19 11:32 Dose: 234 mg Documented by: Simvastatin (Zocor) 10 mg PO HS CLARISA Stop: 11/02/19 21:59 Last Admin: 10/16/19 20:34 Dose: 10 mg Documented by: Sodium Chloride ([place] Nasal) 1 - 2 sprays NA PRN PRN PRN Reason: Nasal Dryness/Congestion Stop: 11/02/19 08:46 Mental Health & Subst Abuse Tx Psychiatrist Name of Psychiatrist: . Psychiatrist's Phone Number: . Date of Appointment with Psychiatrist: 09/14/19 Time of Appointment with Psychiatrist: . Psychiatric Appointment Comment: . Therapist Name of Therapist: . Police Worker Name of Police Worker: [employer] Lizzy Pandey Phone Number for Police Worker: [phone] Post Discharge Appointments Primary Care Physician Name Of Family Doctor: [facility] Primary Care Provider Appointment Comment: [address], [address], [place] [address]
[2019-10-17] MEDS: SIMVASTATIN 10 MG TAB PO SCH (20:57)
--- NOTE | 2019-10-18 08:55 | Psychiatric Progress Note ---
Date of Service October 18, 2019 Impression / Recommendations Impression 63-year-old Citizen Of [place] female with schizoaffective disorder bipolar type admitted on a 302 commitment 4 days after being discharged from this unit on 08/29 after a 27-day hospitalization. She was discharged on a 304 IOC, and returned to the ER later that same day, after police were called due to bizarre behavior at a local grocery store, and was again discharged. Readmitted several days later with psychotic symptoms including paranoia, delusions of persecution (that people were trying to poison/harm her), refusing to eat with hypokalemia, homelessness, delusions that she owns a home, and inability to provide for her own basic needs. Additionally, family members who petitioned reported she made suicidal statements and walked into traffic, and reported delusions that her son had stabbed her in her intestines were hanging out. They also reported she had been noncompliant with oral psychotropic medications, and although her shoe caser assisted her to fill these on the day of discharge, she did not bring them into the hospital with her and says she does not know where they are. She has repeatedly demonstrated complete inability to provide for her own basic needs outside of the hospital, including health, welfare, fci, food, and safety. Inpatient treatment is medically necessary due to the severity of her symptoms and risk for suicide if discharged. She is now on a 304 involuntary commitment, has been started on Invega Sustenna, and has been referred to the [facility] long-term inpatient treatment. Referral was made on 09/07/2019, received update on 10/12/2019 that patient is officially on the waitlist - specific bed date remains uncertain at this time. Pt updated with this information. Patient isolative in her room but remains delusional with believes that she has a home in [place] she can return to, and therefore continues to be uncooperative with appropriate discharge planning and is not demonstrating ability to tolerate community re-entry. (1) Schizoaffective disorder, bipolar type: 09/03/19 -The patient has been admitted to the locked, secured behavioral health unit and has been placed in special observation room. She is also being monitored with close observations and every 15-minute direct observation. When more stable she will be actively encouraged to participate in individual, group, and activity therapies. We will also attempt to involve the family if the patient permits us to and if they agree. - Resuming medications as was rx'd at time of discharge on 08/29 including po Invega, lithium, and Sustenna. 09/03 -continue current medications, patient is taking them. -File for 306 conversion hearing to be held 09/06/2019. She will likely need referral to the [facility] due to the need for long-term inpatient treatment. -Reviewed FLP and FG from recent hospitalization 08/07/2019: Cholesterol 221, glucose 109, other values within normal limits. -Attempt to involve family is able; son-in-law Poli is petitioner and was involved in hospitalization so we will ask staff to contact him for collateral information and to determine the family's ability to assist with discharge planning and housing. She has very limited supports in the community and if they are unable to assist her with housing and care, she will likely require long-term hospitalization. -Continue private room for psychosis. 09/04 - Continue current medication regimen - patient has been compliant with medications in this structured environment - 306 conversion hearing scheduled for 09/05 - Meeting with shoe caser today to discuss treatment options and continue attempts to build rapport - Referral to [facility] is being recommended at this time has patient has repeatedly demonstrated an inability to care for self and provide for basic needs without the support of a structured psychiatric setting. - EKG (WNL). PPD was refused by patient - CXR ordered 09/05 -306 hearing held and patient converted to a 304 involuntary commitment. -Referred to [facility] for long-term inpatient treatment, as patient is severely ill and unable to provide for her own basic needs as a result of her mental illness, and treatment for 27 days on our acute unit was insufficient for successful transition to the community. She was at [facility] for 4 months within the past year, and did respond to treatment there, so returned to the [facility] as recommended for long-term treatment of SPMI. -EKG and chest x-ray completed for state hospital referral. 09/06 - Continue current medication regimen - Referral to [facility] is being prepared, approval was reportedly received from the county - Ongoing attempt to build rapport with psychiatric shoe caser 09/07 - 09/09 - Continue current medication regimen - Referral sent to [facility] on 09/07/2019 for recommended long- term psychiatric hospitalization based on chronic medication/treatment non- compliance and repeated demonstration of inability to care for self outside of a structured psychiatric setting. - Pt was informed of [facility] referral today during encounter 09/10 - Continue current medication regimen - [facility] referral sent on 09/07/2019 - requesting updates regarding when case is anticipated to be reviewed and ensure information was received - Pt continues to demand to leave, unable to appreciated the severity of her condition. Ongoing concern related to patient's repeated demonstration of inability to care for self outside of a structured psychiatric setting. 09/11 - Continue current medication regimen - Awaiting acceptance at [facility]. Ongoing concern related to patient's repeated demonstration of inability to care for self outside of a structured psychiatric setting. 09/12 - 09/14 - Pt due for next injection of Invega Sustenna 234mg IM on 09/16. Oral supplementation was continued from last hospitalization due to concern for ongoing instability with regard to psychotic symptoms. In preparation for first maintenance dose, will reduce oral supplementation to 3mg qAM and discontinue oral paliperidone on 09/16. Continue lithium 450mg BID unchanged. - Awaiting replay for [facility] regarding referral. Ongoing concern related to patient's repeated demonstration of inability to care for self outside of a structured psychiatric setting. Pt has consistently not been agreeable to diversion planning as a result of fixed delusional beliefs that she has family support, that she has a house to live in, and that she has a lot of money - none of these statements confirmed to be true. 09/15 -Continue treatment plan as previously prescribed 09/16 -now fully converted to invega sustenna. 09/17 - Continue current treatment plan 09/18 - 09/20 - Continue current treatment plan - Confirmed that information from patient's hospitalization at our facility was received by [facility], but case has not yet been reviewed. Still awaiting determination of acceptance status. 09/21 - continue current meds and tx plan. Reinstitute medically necessary private room as hx of aggression, labile mood, poor ability to keep contact precautions with COVID, hx homelessness higher risk category 09/22 - 09/23 - continue current meds and tx plan. 09/24 continue current meds and tx plan. MNPR for now as less paranoid and more visible on unit. 09/25 - Continue current treatment plan - patient remains irritable, paranoid, and delusional - Continue MNPR for paranoia and irritability 09/26 - Continue current treatment plan - Still awaiting response from [facility], 3 weeks after initially referral packet was sent - Pt did reportedly complete her Medical Assistance application. Consider repeat meeting with the county to discuss options for diversion planning; though these remain very limited - As review of patient's treatment plan has historically been very upsetting to the patient, discharge plans have not changed, and the therapeutic value of the review is limited - discussed with patient who did agree to review her treatment plan once a week unless there are changes in the interim. This was confirmed by multiple parties and can be reviewed with greater frequency at which time patient better tolerates the conversation and the therapeutic value is increased. 09/27 - 10/01 - Continue current treatment plan - Still awaiting response from [facility] - Pt is unwilling to consider alternative housing options - she maintains the delusion that she has a penthouse in [place] which has been confirmed to be untrue. 10/02 - Continue as above - medications renewed - Still awaiting response from [facility] - Pt maintains fixed delusions that are interfering significantly with patient's ability to adequately care for herself outside of a structured/supervised setting 10/03 - Continue current medication regimen - 30-day treatment review; treatment plan reviewed with patient who did become angry when length of stay was reviewed. Again became acutely agitated during conversation with provider today - Pt demonstrated very loud yelling, acute agitation, and inability to appropriately communicate frustration. These concerns, in addition to numerous failed attempts at discharge, continue to be evidence as to why patient is not appropriate to be discharged to the community. - Pt is not appropriate to go outside based on episodes of acute agitation and continued delusions which interfere with patient's ability to ensure appropriate behavior 10/04 - 10/05 - Continue current medication regimen - Pt remains inappropriate to go outside - Plan remains for transfer to the [facility] - no response regarding acceptance 10/06 - 10/07 -continue current plan. Amended court order to be obtained Wednesday and sent to the [facility] for acceptance and put patient on their wait list. 10/08 - 10/10 - continue current plan. Discharge plan continues to be placement at [facility] - Pt continues to be inappropriate to go outside based on continued demands for discharge, delusional thought content, and concerns for elopement risk if taken outside the hospital setting 10/11 - Continue current treatment plan - anticipated discharge to [facility] - Did review in detail expectations related to ability to go outside. Expectations were provided to patient, who initially verbalized understanding and repeated them back to this provider. Unfortunately, when expectations were reviewed right before attempt to go outside, patient escalated and demanded discharge and stated she was not going to the [facility]. Based on this behavior, it was deemed patient was not appropriate to go outside today. - Received amended court order to reflect updated [address] [facility] - following up to formally place patient on the waitlist 10/12 - Continue current medication regimen - pt due for next Invega Sustenna injection on 10/14 - Received confirmation that patient was formally placed on the waitlist at [facility], no available bed date at this time - Pt updated on status of [facility] referral, also updated that we were informed there is another Egyptian-speaking patient on the unit she will be admitted to and they have two Egyptian-speaking staff/interpreters on service. 10/13 - Continue current medication regimen - maintenance injection of Invega Sustenna due 10/14 - Awaiting bed date at [facility] 10/14 - Continue current treatment plan - Pt tolerated first maintenance injection of Invega Sustenna ordered for today - will be due again on 11/11 for next maintenance injection - Awaiting bed date and transfer to [facility] - Pt continues to be too delusional and agitated to tolerate a visit outside, will continue to assess 10/15 - 10/17 - Continue current treatment plan - Awaiting bed date and transfer to [facility] (2) Noncompliance with medication regimen: 09/02 - Unable to clarify if pt has been taking her medications regularly in the days since discharge. She at first indicated that she was not then indicated the medications arein a bag of hers but did not indicate actually taking them. The patient also claims to not recall the names of any of her medications and reports that she does not have the conditions for which her known medications are clearly intended. Possible cognitive impairments. might be impacting medication compliance. language impairments with pt not speaking Vietnamese impacting compliance concerns. -The patient's underlying psychiatric condition will be actively treated. It is hoped that with treatment we will be able to improve medication compliance and also address aspects that impact compliance and improve this with appropriate interventions. CANTOR form of Invega to be continued at this time, next dose not due for another 2 weeks. Pt took meds this morning that were offered to her but given her extensive non compliance prior to, during and seeming after recent admission and lack of insight to her dx and presentation and indicating that recent hospitalization was quite helpful for her and her indicating wanting to continue her medications as was rx' at end of recent [facility] admission and were instructed to take at that discharge. I am in favor of medication over objection if pt objects to taking her medication during the course of this admission or if it is determined that pt is checking or not actually taking her medications. 10/16 - Pt has continued to tolerate Invega Sustenna maintenance injections. Last received injection on 10/15/2019, due for next injections of 234mg IM on 11/11 (3) Homeless: 09/03/19 -In the past, the patient has lived with family members. However, this is clearly not an option at the present time. The context is that the patient reportedly was in custodial for approximately a year because of her making terroristic threats against the family. While it does seem clear that the family wants to help protect her, they are unable to safely provide fci. Given the patient's history of neglect of self-care, medication nonadherence, and possible cognitive deficits we are going to investigate structured residential programs as part of our discharge planning. 09/03 -patient has consistently refused assistance with housing, insisting that she has a house in [place], although has not been able to provide an address and her family states this is not true. 09/06 - Patient's grandson called unit yesterday to provide additional information, stating the patient has been homeless for quite some time and there is no valid address for the patient 09/29 pt remains delusional about having a home and is agitated if this is approached or challenged in anyway 09/30 did not discuss further today as this is a point of delusion and been shown to be refractory to challenging in anyway (4) Involuntary commitment: 09/03 -patient on a 304 IOC, readmitted on a 302. We will file for a 306 conversion hearing. 09/04 - 306 hearing scheduled for 09/05; anticipate referral to [facility]. 09/05 -306 conversion granted, now here on a 304 involuntary commitment. 09/07 - Referral packet sent to [facility] on 09/06 (5) Nicotine abuse: 09/02 - Nicotine Patch 7mg topical daily resumed, and smoking cessation to be done when pt is in more apposite mental state to do so Inventory Assets Strengths: concerned family members, pleasant on approach Needs: stable housing, improved compliance to medication and treatment plan. Risk Factors Assessment Male: No : No Do You Have Access To A Gun?: No Health Problems: No Mental Health Diagnoses: Yes Substance Use Disorders: No Previous Attempt: Yes (Per family, patient denies) Previous Psychiatric Hospitalization: Yes Hopelessness: No Smoker: Yes Protective Factors Assessment : No Responsible for Young Children: No Employed: No Stable Relationships: No Supportive Family: No Good Rapport with Provider: No Interval History Identifying Information REGINA CYR is a 64-year-old F who currently is homeless in [facility], has a history of schizoaffective disorder, bipolar type, and was admitted on 09/03/19 05:42 on a 302 involuntary commitment for psychosis, suicidal ideation, inability to provide for basic needs, and medication noncompliance. Chief Complaint "Good. 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 Sleep Information Total Hours of Sleep: 5 Sleep Comments: pt on q-15 minute checks Meal Information Percent Meal Consumed - Breakfast: 100 Percent Meal Consumed - Lunch: 100 Percent Meal Consumed - Dinner: 100 Nutrition Comment: documented from the pt. meal record Subjective Subjective Patient was seen & assessed and interval progress reviewed with treatment team. Staff report the patient continues to be intermittently tearful, and regularly talks to herself when in her room alone. Pt was seen today to assess progress since admission. Visit was held in conjunction with weekly treatment plan rev iew (as agreed upon by patient). Egyptian-Vietnamese conversation was conducted with assistance from [employer] Private interpretive service - [facility] #[id number]. Pt states she is "Good" and then corrects the hose stripper for mispronouncing her name. Pt denies any physical complaints at this time and continues to tolerate her scheduled medications. Pt was previously agreeable with only reviewing her treatment plan once a week on Wednesdays. Today, however, patient declines to review when offered. Pt was informed that the plan continues to be discharge to the [facility]. During this conversation, the patient did spit onto the floor, though this did not seem to be in protest to the statements she was being told. Pt denied other needs or concerns today. Physical Exam Psychiatric Orientation: alert and + guarded (uncooperative) Apperance: appropriately dressed (t-shirt and leggings), + disheveled (hair appearing unkempt) and appeared stated age Eye Contact: + fair eye contact Motor Behavior: no abnormal motor movements (observed while seated on edge of bed) Speech: normal rate/rhythm/volume of speech (very brief responses to questions, delay in response) Affect: + blunted affect and + constricted affect Mood: no depressed mood ("Good") Thought Process: goal directed thought process, + thought blocking (paucity of thought, prolonged delays prior to responding to questions) and + concrete thought process Hallucinations: continues to talk to herself in her room, appears to regularly be responding to internal stimuli Cognition: language grossly intact Insight: + severely impaired insight Judgement: + severely impaired judgement Vital Signs (Past 24 Hours) Last Vital Signs Temp 36.4 C L 10/18/19 06:00 Pulse 86 10/18/19 06:12 Resp 18 10/18/19 06:00 BP 144/85 H 10/18/19 06:12 Pulse Ox 95 09/03/19 05:47 Results & Data ([facility]) Current Inpatient Medications Current Inpatient Medications: Current Inpatient Medications Acetaminophen (Tylenol) 650 mg PO Q4H PRN PRN Reason: Headache or Minor Fever Stop: 11/02/19 08:46 Al Hydrox/Mg Hydrox/Simethicone (Maalox) 30 ml PO Q4H PRN PRN Reason: GI Upset Stop: 11/02/19 08:46 Bismuth Subsalicylate (Kaopectate) 15 ml PO PRN PRN PRN Reason: Loose Stool Stop: 11/02/19 08:46 Clotrimazole (Lotrimin 1%) 1 appln EXT BID [facility] Stop: 10/24/19 20:59 Last Admin: 10/17/19 20:57 Dose: 1 appln Documented by: Docusate Sodium (Colace) 100 mg PO BID [facility] Stop: 11/02/19 20:59 Last Admin: 10/17/19 20:57 Dose: 100 mg Documented by: Haloperidol (Haldol) 5 mg PO Q6H PRN PRN Reason: Agitation/Psychosis Stop: 11/04/19 15:13 Last Admin: 10/16/19 08:18 Dose: 5 mg Documented by: Hydroxyzine HCl (Vistaril) 50 mg PO HSZ PRN PRN Reason: Insomnia Stop: 11/02/19 08:46 Hydroxyzine HCl (Vistaril) 25 mg PO Q4H PRN PRN Reason: Anxiety Stop: 11/02/19 08:46 Levothyroxine Sodium (Synthroid) 75 mcg PO DAILYBB [facility] Stop: 11/02/19 07:59 Last Admin: 10/17/19 07:33 Dose: 75 mcg Documented by: Woodfin Carbonate (Eskalith) 450 mg PO BID [facility] Stop: 11/02/19 08:59 Last Admin: 10/17/19 20:57 Dose: 450 mg Documented by: Magnesium Hydroxide (Milk Of Magnesia) 30 ml PO DAILY PRN PRN Reason: Constipation Stop: 11/02/19 08:46 Paliperidone Palmitate (Invega Sustenna) 234 mg IM Q28D@0900 [facility] Stop: 11/14/19 10:59 Last Admin: 10/15/19 11:32 Dose: 234 mg Documented by: Simvastatin (Zocor) 10 mg PO HS [facility] Stop: 11/02/19 21:59 Last Admin: 10/17/19 20:57 Dose: 10 mg Documented by: Sodium Chloride (Knox Nasal) 1 - 2 sprays NA PRN PRN PRN Reason: Nasal Dryness/Congestion Stop: 11/02/19 08:46 Mental Health & Subst Abuse Tx Psychiatrist Name of Psychiatrist: . Psychiatrist's Phone Number: . Date of Appointment with Psychiatrist: 09/14/19 Time of Appointment with Psychiatrist: . Psychiatric Appointment Comment: . Therapist Name of Therapist: . Record Producer Name of Record Producer: [employer] - Lizzy Pandey Phone Number for Record Producer: [phone] Post Discharge Appointments Primary Care Physician Name Of Family Doctor: [facility] Primary Care Provider Appointment Comment: [id number], [address], [place] [address]
[2019-10-18] MEDS: LITHIUM CARBONATE 450 MG TABCR PO SCH ×2 (08:57→21:07)
[2019-10-18] MEDS: LEVOTHYROXINE SODIUM 75 MCG TABLET PO SCH (08:57)
[2019-10-18] MEDS: CLOTRIMAZOLE 1% CR 15 GM TUBE EXT SCH ×2 (08:57→21:06)
[2019-10-18] MEDS: DOCUSATE SODIUM 100 MG CAP PO SCH ×2 (08:57→21:07)
[2019-10-18] MEDS: SIMVASTATIN 10 MG TAB PO SCH (21:07)
--- NOTE | 2019-10-19 08:44 | Psychiatric Progress Note ---
Date of Service October 19, 2019 Impression / Recommendations Impression 63-year-old Haitian female with schizoaffective disorder bipolar type admitted on a 302 commitment 4 days after being discharged from this unit on 08/29 after a 27-day hospitalization. She was discharged on a 304 IOC, and returned to the ER later that same day, after police were called due to bizarre behavior at a local grocery store, and was again discharged. Readmitted several days later with psychotic symptoms including paranoia, delusions of persecution (that people were trying to poison/harm her), refusing to eat with hypokalemia, homelessness, delusions that she owns a home, and inability to provide for her own basic needs. Additionally, family members who petitioned reported she made suicidal statements and walked into traffic, and reported delusions that her son had stabbed her in her intestines were hanging out. They also reported she had been noncompliant with oral psychotropic medications, and although her behavioral health case manager assisted her to fill these on the day of discharge, she did not bring them into the hospital with her and says she does not know where they are. She has repeatedly demonstrated complete inability to provide for her own basic needs outside of the hospital, including health, welfare, custodial, food, and safety. Inpatient treatment is medically necessary due to the severity of her symptoms and risk for suicide if discharged. She is now on a 304 involuntary commitment, has been started on Invega Sustenna, and has been referred to the [facility] long-term inpatient treatment. Referral was made on 09/07/2019, received update on 10/12/2019 that patient is officially on the waitlist - specific bed date remains uncertain at this time. Pt updated with this information. Patient isolative in her room but remains delusional with believes that she has a home in [place] she can return to, and therefore continues to be uncooperative with appropriate discharge planning and is not demonstrating ability to tolerate community re-entry. (1) Schizoaffective disorder, bipolar type: 09/03/19 -The patient has been admitted to the locked, secured behavioral health unit and has been placed in special observation room. She is also being monitored with close observations and every 15-minute direct observation. When more stable she will be actively encouraged to participate in individual, group, and activity therapies. We will also attempt to involve the family if the patient permits us to and if they agree. - Resuming medications as was rx'd at time of discharge on 08/29 including po Invega, lithium, and Sustenna. 09/03 -continue current medications, patient is taking them. -File for 306 conversion hearing to be held 09/06/2019. She will likely need referral to the [facility] due to the need for long-term inpatient treatment. -Reviewed FLP and FG from recent hospitalization 08/07/2019: Cholesterol 221, glucose 109, other values within normal limits. -Attempt to involve family is able; son-in-law Poli is petitioner and was involved in hospitalization so we will ask staff to contact him for collateral information and to determine the family's ability to assist with discharge planning and housing. She has very limited supports in the community and if they are unable to assist her with housing and care, she will likely require long-term hospitalization. -Continue private room for psychosis. 09/04 - Continue current medication regimen - patient has been compliant with medications in this structured environment - 306 conversion hearing scheduled for 09/05 - Meeting with behavioral health case manager today to discuss treatment options and continue attempts to build rapport - Referral to [facility] is being recommended at this time has patient has repeatedly demonstrated an inability to care for self and provide for basic needs without the support of a structured psychiatric setting. - EKG (WNL). PPD was refused by patient - CXR ordered 09/05 -306 hearing held and patient converted to a 304 involuntary commitment. -Referred to [facility] for long-term inpatient treatment, as patient is severely ill and unable to provide for her own basic needs as a result of her mental illness, and treatment for 27 days on our acute unit was insufficient for successful transition to the community. She was at [facility] for 4 months within the past year, and did respond to treatment there, so returned to the [facility] as recommended for long-term treatment of SPMI. -EKG and chest x-ray completed for state hospital referral. 09/06 - Continue current medication regimen - Referral to [facility] is being prepared, approval was reportedly received from the county - Ongoing attempt to build rapport with psychiatric behavioral health case manager 09/07 - 09/09 - Continue current medication regimen - Referral sent to [facility] on 09/07/2019 for recommended long- term psychiatric hospitalization based on chronic medication/treatment non- compliance and repeated demonstration of inability to care for self outside of a structured psychiatric setting. - Pt was informed of [facility] referral today during encounter 09/10 - Continue current medication regimen - [place] referral sent on 09/07/2019 - requesting updates regarding when case is anticipated to be reviewed and ensure information was received - Pt continues to demand to leave, unable to appreciated the severity of her condition. Ongoing concern related to patient's repeated demonstration of inability to care for self outside of a structured psychiatric setting. 09/11 - Continue current medication regimen - Awaiting acceptance at [facility]. Ongoing concern related to patient's repeated demonstration of inability to care for self outside of a structured psychiatric setting. 09/12 - 09/14 - Pt due for next injection of Invega Sustenna 234mg IM on 09/16. Oral supplementation was continued from last hospitalization due to concern for ongoing instability with regard to psychotic symptoms. In preparation for first maintenance dose, will reduce oral supplementation to 3mg qAM and discontinue oral paliperidone on 09/16. Continue lithium 450mg BID unchanged. - Awaiting replay for [facility] regarding referral. Ongoing concern related to patient's repeated demonstration of inability to care for self outside of a structured psychiatric setting. Pt has consistently not been agreeable to diversion planning as a result of fixed delusional beliefs that she has family support, that she has a house to live in, and that she has a lot of money - none of these statements confirmed to be true. 09/15 -Continue treatment plan as previously prescribed 09/16 -now fully converted to invega sustenna. 09/17 - Continue current treatment plan 09/18 - 09/20 - Continue current treatment plan - Confirmed that information from patient's hospitalization at our facility was received by [facility], but case has not yet been reviewed. Still awaiting determination of acceptance status. 09/21 - continue current meds and tx plan. Reinstitute medically necessary private room as hx of aggression, labile mood, poor ability to keep contact precautions with COVID, hx homelessness higher risk category 09/22 - 09/23 - continue current meds and tx plan. 09/24 continue current meds and tx plan. MNPR for now as less paranoid and more visible on unit. 09/25 - Continue current treatment plan - patient remains irritable, paranoid, and delusional - Continue MNPR for paranoia and irritability 09/26 - Continue current treatment plan - Still awaiting response from [facility], 3 weeks after initially referral packet was sent - Pt did reportedly complete her Medical Assistance application. Consider repeat meeting with the county to discuss options for diversion planning; though these remain very limited - As review of patient's treatment plan has historically been very upsetting to the patient, discharge plans have not changed, and the therapeutic value of the review is limited - discussed with patient who did agree to review her treatment plan once a week unless there are changes in the interim. This was confirmed by multiple parties and can be reviewed with greater frequency at which time patient better tolerates the conversation and the therapeutic value is increased. 09/27 - 10/01 - Continue current treatment plan - Still awaiting response from [facility] - Pt is unwilling to consider alternative housing options - she maintains the delusion that she has a penthouse in [place] which has been confirmed to be untrue. 10/02 - Continue as above - medications renewed - Still awaiting response from [facility] - Pt maintains fixed delusions that are interfering significantly with patient's ability to adequately care for herself outside of a structured/supervised setting 10/03 - Continue current medication regimen - 30-day treatment review; treatment plan reviewed with patient who did become angry when length of stay was reviewed. Again became acutely agitated during conversation with provider today - Pt demonstrated very loud yelling, acute agitation, and inability to appropriately communicate frustration. These concerns, in addition to numerous failed attempts at discharge, continue to be evidence as to why patient is not appropriate to be discharged to the community. - Pt is not appropriate to go outside based on episodes of acute agitation and continued delusions which interfere with patient's ability to ensure appropriate behavior 10/04 - 10/05 - Continue current medication regimen - Pt remains inappropriate to go outside - Plan remains for transfer to the [facility] - no response regarding acceptance 10/06 - 10/07 -continue current plan. Amended court order to be obtained Wednesday and sent to the [facility] for acceptance and put patient on their wait list. 10/08 - 10/10 - continue current plan. Discharge plan continues to be placement at [facility] - Pt continues to be inappropriate to go outside based on continued demands for discharge, delusional thought content, and concerns for elopement risk if taken outside the hospital setting 10/11 - Continue current treatment plan - anticipated discharge to [facility] - Did review in detail expectations related to ability to go outside. Expectations were provided to patient, who initially verbalized understanding and repeated them back to this provider. Unfortunately, when expectations were reviewed right before attempt to go outside, patient escalated and demanded discharge and stated she was not going to the [facility]. Based on this behavior, it was deemed patient was not appropriate to go outside today. - Received amended court order to reflect updated 304 commitment to [facility] - following up to formally place patient on the waitlist 10/12 - Continue current medication regimen - pt due for next Invega Sustenna injection on 10/14 - Received confirmation that patient was formally placed on the waitlist at [facility], no available bed date at this time - Pt updated on status of [place] referral, also updated that we were informed there is another Kyrgyz-speaking patient on the unit she will be admitted to and they have two Kyrgyz-speaking staff/interpreters on service. 10/13 - Continue current medication regimen - maintenance injection of Invega Sustenna due 10/14 - Awaiting bed date at [facility] 10/14 - Continue current treatment plan - Pt tolerated first maintenance injection of Invega Sustenna ordered for today - will be due again on 11/11 for next maintenance injection - Awaiting bed date and transfer to [facility] - Pt continues to be too delusional and agitated to tolerate a visit outside, will continue to assess 10/15 - 10/18 - Continue current treatment plan - Awaiting bed date and transfer to [facility] (2) Noncompliance with medication regimen: 09/02 - Unable to clarify if pt has been taking her medications regularly in the days since discharge. She at first indicated that she was not then indicated the medications arein a bag of hers but did not indicate actually taking them. The patient also claims to not recall the names of any of her medications and reports that she does not have the conditions for which her known medications are clearly intended. Possible cognitive impairments. might be impacting medication compliance. language impairments with pt not speaking Syriac impacting compliance concerns. -The patient's underlying psychiatric condition will be actively treated. It is hoped that with treatment we will be able to improve medication compliance and also address aspects that impact compliance and improve this with appropriate interventions. CANTOR form of Invega to be continued at this time, next dose not due for another 2 weeks. Pt took meds this morning that were offered to her but given her extensive non compliance prior to, during and seeming after recent admission and lack of insight to her dx and presentation and indicating that recent hospitalization was quite helpful for her and her indicating wanting to continue her medications as was rx' at end of recent [facility] admission and were instructed to take at that discharge. I am in favor of medication over objection if pt objects to taking her medication during the course of this admission or if it is determined that pt is checking or not actually taking her medications. 10/16 - Pt has continued to tolerate Invega Sustenna maintenance injections. Last received injection on 10/15/2019, due for next injections of 234mg IM on 11/11 (3) Homeless: 09/03/19 -In the past, the patient has lived with family members. However, this is clearly not an option at the present time. The context is that the patient reportedly was in [facility] for approximately a year because of her making terroristic threats against the family. While it does seem clear that the family wants to help protect her, they are unable to safely provide custodial. Given the patient's history of neglect of self-care, medication nonadherence, and possible cognitive deficits we are going to investigate structured residential programs as part of our discharge planning. 09/03 -patient has consistently refused assistance with housing, insisting that she has a house in [place], although has not been able to provide an address and her family states this is not true. 09/06 - Patient's grandson called unit yesterday to provide additional information, stating the patient has been homeless for quite some time and there is no valid address for the patient 09/29 pt remains delusional about having a home and is agitated if this is approached or challenged in anyway 09/30 did not discuss further today as this is a point of delusion and been shown to be refractory to challenging in anyway (4) Involuntary commitment: 09/03 -patient on a 304 IOC, readmitted on a 302. We will file for a 306 conversion hearing. 09/04 - 306 hearing scheduled for 09/05; anticipate referral to [facility]. 09/05 -306 conversion granted, now here on a 304 involuntary commitment. 09/07 - Referral packet sent to [facility] on 09/06 (5) Nicotine abuse: 09/02 - Nicotine Patch 7mg topical daily resumed, and smoking cessation to be done when pt is in more apposite mental state to do so Inventory Assets Strengths: concerned family members, pleasant on approach Needs: stable housing, improved compliance to medication and treatment plan. Risk Factors Assessment Male: No : No Do You Have Access To A Gun?: No Health Problems: No Mental Health Diagnoses: Yes Substance Use Disorders: No Previous Attempt: Yes (Per family, patient denies) Previous Psychiatric Hospitalization: Yes Hopelessness: No Smoker: Yes Protective Factors Assessment : No Responsible for Young Children: No Employed: No Stable Relationships: No Supportive Family: No Good Rapport with Provider: No Interval History Identifying Information ANDREW CYR is a 64-year-old F who currently is homeless in [facility], has a history of schizoaffective disorder, bipolar type, and was admitted on 09/03/19 05:42 on a 302 involuntary commitment for psychosis, suicidal ideation, inability to provide for basic needs, and medication noncompliance. Chief Complaint "No, no, no, en groupo." Review of Systems Notes Pt is uncooperative with interview. Does not verbalize any physical complaints. Sleep Information Total Hours of Sleep: 7 Sleep Comments: ate snacks of 4 boxes of cereals with milks at 0045. got drinks at 0500 and salt packets at 0530. Meal Information Percent Meal Consumed - Breakfast: 100 Percent Meal Consumed - Lunch: 100 Percent Meal Consumed - Dinner: 75 Nutrition Comment: documented from the pt. meal record for 10/18/2019 Subjective Subjective Patient was seen & assessed and interval progress reviewed with nursing and social work. Staff report the patient continues to demonstrate a predominantly irritable affect. She continues to be delusional and is often observed to be speaking or laughing to herself. Pt was observed to be at community meeting this morning. Attempts were made to meet with the patient today. In the morning, patient refused use of interpretive device stating "No, no, no, en groupo." This provider attempted to explain simply in Syriac that without the theatrical scenic designer, this provider cannot confirm what she is saying. Pt continued to state "no, no, no" and other phrases in Kyrgyz. It was assumed that because patient spoke in group, she did not want to speak now. Pt did eventually annunciate the word "later." This provider did attempt to meet with the patient again after lunch. Kyrgyz- Syriac conversation was conducted with assistance from [facility] interpretive service - Roxann #[id number]. Unfortunately, before introductions could be made to the theatrical scenic designer, the patient stated rather forcefully "no habla." Pt continued to verbalize statements in Kyrgyz, which were translated to "Nothing that you say to I have an interest in." Pt made several gestures of shaking her hand in this provider's direction and began walking away from this provider. Physical Exam Psychiatric Orientation: alert and + guarded (uncooperative ) Apperance: appropriately dressed, + disheveled and appeared stated age Eye Contact: + poor eye contact Motor Behavior: steady gait and station (observed to be pacing the room ) and no abnormal motor movements Speech: normal rate/rhythm/volume of speech (only allowing brief interactions) Affect: + depressed affect and + angry affect Thought Process: + concrete thought process Thought Content: + paranoid, + delusions and + persecution Hallucinations: patient continues to speak and laugh to herself when in her room alone. Cognition: language grossly intact; + attention not intact Insight: + severely impaired insight Judgement: + severely impaired judgement Vital Signs (Past 24 Hours) Last Vital Signs Temp 36.4 C L 10/19/19 06:55 Pulse 78 10/19/19 06:56 Resp 18 10/19/19 06:55 BP 150/82 H 10/19/19 06:56 Pulse Ox 95 09/03/19 05:47 Results & Data ([facility]) Current Inpatient Medications Current Inpatient Medications: Current Inpatient Medications Acetaminophen (Tylenol) 650 mg PO Q4H PRN PRN Reason: Headache or Minor Fever Stop: 11/02/19 08:46 Al Hydrox/Mg Hydrox/Simethicone (Maalox) 30 ml PO Q4H PRN PRN Reason: GI Upset Stop: 11/02/19 08:46 Bismuth Subsalicylate (Kaopectate) 15 ml PO PRN PRN PRN Reason: Loose Stool Stop: 11/02/19 08:46 Clotrimazole (Lotrimin 1%) 1 appln EXT BID CLARISA Stop: 10/24/19 20:59 Last Admin: 10/18/19 21:06 Dose: 1 appln Documented by: Docusate Sodium (Colace) 100 mg PO BID [facility] Stop: 11/02/19 20:59 Last Admin: 10/18/19 21:07 Dose: 100 mg Documented by: Haloperidol (Haldol) 5 mg PO Q6H PRN PRN Reason: Agitation/Psychosis Stop: 11/04/19 15:13 Last Admin: 10/16/19 08:18 Dose: 5 mg Documented by: Hydroxyzine HCl (Vistaril) 50 mg PO HSZ PRN PRN Reason: Insomnia Stop: 11/02/19 08:46 Hydroxyzine HCl (Vistaril) 25 mg PO Q4H PRN PRN Reason: Anxiety Stop: 11/02/19 08:46 Levothyroxine Sodium (Synthroid) 75 mcg PO DAILYBB [facility] Stop: 11/02/19 07:59 Last Admin: 10/18/19 08:57 Dose: 75 mcg Documented by: [place] Carbonate (Eskalith) 450 mg PO BID [facility] Stop: 11/02/19 08:59 Last Admin: 10/18/19 21:07 Dose: 450 mg Documented by: Magnesium Hydroxide (Milk Of Magnesia) 30 ml PO DAILY PRN PRN Reason: Constipation Stop: 11/02/19 08:46 Paliperidone Palmitate (Invega Sustenna) 234 mg IM Q28D@0900 [facility] Stop: 11/14/19 10:59 Last Admin: 10/15/19 11:32 Dose: 234 mg Documented by: Simvastatin (Zocor) 10 mg PO HS [facility] Stop: 11/02/19 21:59 Last Admin: 10/18/19 21:07 Dose: 10 mg Documented by: Sodium Chloride ([place] Nasal) 1 - 2 sprays NA PRN PRN PRN Reason: Nasal Dryness/Congestion Stop: 11/02/19 08:46 Mental Health & Subst Abuse Tx Psychiatrist Name of Psychiatrist: . Psychiatrist's Phone Number: . Date of Appointment with Psychiatrist: 09/14/19 Time of Appointment with Psychiatrist: . Psychiatric Appointment Comment: . Therapist Name of Therapist: . Wrap Knitting Machine Operator Name of Wrap Knitting Machine Operator: [facility] - Lizzy Pandey Phone Number for Wrap Knitting Machine Operator: [phone] Post Discharge Appointments Primary Care Physician Name Of Family Doctor: [facility] Primary Care Provider Appointment Comment: Kirt Carmona [employer] [facility], [address], [place] [address]
[2019-10-19] MEDS: CLOTRIMAZOLE 1% CR 15 GM TUBE EXT SCH ×2 (08:46→20:42)
[2019-10-19] MEDS: LEVOTHYROXINE SODIUM 75 MCG TABLET PO SCH (08:46)
[2019-10-19] MEDS: LITHIUM CARBONATE 450 MG TABCR PO SCH ×2 (08:46→20:41)
[2019-10-19] MEDS: DOCUSATE SODIUM 100 MG CAP PO SCH ×2 (08:46→20:41)
[2019-10-19] MEDS: haloperidoL 5 MG TAB PO PRN (18:27)
[2019-10-19] MEDS: SIMVASTATIN 10 MG TAB PO SCH (20:42)
[2019-10-20] MEDS: LEVOTHYROXINE SODIUM 75 MCG TABLET PO SCH (08:35)
[2019-10-20] MEDS: DOCUSATE SODIUM 100 MG CAP PO SCH ×2 (08:35→20:46)
[2019-10-20] MEDS: LITHIUM CARBONATE 450 MG TABCR PO SCH ×2 (08:36→20:46)
[2019-10-20] MEDS: CLOTRIMAZOLE 1% CR 15 GM TUBE EXT SCH ×2 (08:36→20:47)
--- NOTE | 2019-10-20 09:29 | Psychiatric Progress Note ---
Date of Service October 20, 2019 Impression / Recommendations Impression 63-year-old Slovenian female with schizoaffective disorder bipolar type admitted on a 302 commitment 4 days after being discharged from this unit on 08/29 after a 27-day hospitalization. She was discharged on a 304 IOC, and returned to the ER later that same day, after police were called due to bizarre behavior at a local grocery store, and was again discharged. Readmitted several days later with psychotic symptoms including paranoia, delusions of persecution (that people were trying to poison/harm her), refusing to eat with hypokalemia, homelessness, delusions that she owns a home, and inability to provide for her own basic needs. Additionally, family members who petitioned reported she made suicidal statements and walked into traffic, and reported delusions that her son had stabbed her in her intestines were hanging out. They also reported she had been noncompliant with oral psychotropic medications, and although her case liner assisted her to fill these on the day of discharge, she did not bring them into the hospital with her and says she does not know where they are. She has repeatedly demonstrated complete inability to provide for her own basic needs outside of the hospital, including health, welfare, residential, food, and safety. Inpatient treatment is medically necessary due to the severity of her symptoms and risk for suicide if discharged. She is now on a 304 involuntary commitment, has been started on Invega Sustenna, and has been referred to the [facility] long-term inpatient treatment. Referral was made on 09/07/2019, received update on 10/12/2019 that patient is officially on the waitlist - specific bed date remains uncertain at this time. Pt updated with this information. Patient isolative in her room but remains delusional with believes that she has a home in [place] she can return to, and therefore continues to be uncooperative with appropriate discharge planning and is not demonstrating ability to tolerate community re-entry. (1) Schizoaffective disorder, bipolar type: 09/03/19 -The patient has been admitted to the locked, secured behavioral health unit and has been placed in special observation room. She is also being monitored with close observations and every 15-minute direct observation. When more stable she will be actively encouraged to participate in individual, group, and activity therapies. We will also attempt to involve the family if the patient permits us to and if they agree. - Resuming medications as was rx'd at time of discharge on 08/29 including po Invega, lithium, and Sustenna. 09/03 -continue current medications, patient is taking them. -File for 306 conversion hearing to be held 09/06/2019. She will likely need referral to the [facility] due to the need for long-term inpatient treatment. -Reviewed FLP and FG from recent hospitalization 08/07/2019: Cholesterol 221, glucose 109, other values within normal limits. -Attempt to involve family is able; son-in-law Poli is petitioner and was involved in hospitalization so we will ask staff to contact him for collateral information and to determine the family's ability to assist with discharge planning and housing. She has very limited supports in the community and if they are unable to assist her with housing and care, she will likely require long-term hospitalization. -Continue private room for psychosis. 09/04 - Continue current medication regimen - patient has been compliant with medications in this structured environment - 306 conversion hearing scheduled for 09/05 - Meeting with case liner today to discuss treatment options and continue attempts to build rapport - Referral to [facility] is being recommended at this time has patient has repeatedly demonstrated an inability to care for self and provide for basic needs without the support of a structured psychiatric setting. - EKG (WNL). PPD was refused by patient - CXR ordered 09/05 -306 hearing held and patient converted to a 304 involuntary commitment. -Referred to [facility] for long-term inpatient treatment, as patient is severely ill and unable to provide for her own basic needs as a result of her mental illness, and treatment for 27 days on our acute unit was insufficient for successful transition to the community. She was at [facility] for 4 months within the past year, and did respond to treatment there, so returned to the [facility] as recommended for long-term treatment of SPMI. -EKG and chest x-ray completed for state hospital referral. 09/06 - Continue current medication regimen - Referral to [facility] is being prepared, approval was reportedly received from the county - Ongoing attempt to build rapport with psychiatric case liner 09/07 - 09/09 - Continue current medication regimen - Referral sent to [facility] on 09/07/2019 for recommended long- term psychiatric hospitalization based on chronic medication/treatment non- compliance and repeated demonstration of inability to care for self outside of a structured psychiatric setting. - Pt was informed of [facility] referral today during encounter 09/10 - Continue current medication regimen - [facility] referral sent on 09/07/2019 - requesting updates regarding when case is anticipated to be reviewed and ensure information was received - Pt continues to demand to leave, unable to appreciated the severity of her condition. Ongoing concern related to patient's repeated demonstration of inability to care for self outside of a structured psychiatric setting. 09/11 - Continue current medication regimen - Awaiting acceptance at [facility]. Ongoing concern related to patient's repeated demonstration of inability to care for self outside of a structured psychiatric setting. 09/12 - 09/14 - Pt due for next injection of Invega Sustenna 234mg IM on 09/16. Oral supplementation was continued from last hospitalization due to concern for ongoing instability with regard to psychotic symptoms. In preparation for first maintenance dose, will reduce oral supplementation to 3mg qAM and discontinue oral paliperidone on 09/16. Continue lithium 450mg BID unchanged. - Awaiting replay for [facility] regarding referral. Ongoing concern related to patient's repeated demonstration of inability to care for self outside of a structured psychiatric setting. Pt has consistently not been agreeable to diversion planning as a result of fixed delusional beliefs that she has family support, that she has a house to live in, and that she has a lot of money - none of these statements confirmed to be true. 09/15 -Continue treatment plan as previously prescribed 09/16 -now fully converted to invega sustenna. 09/17 - Continue current treatment plan 09/18 - 09/20 - Continue current treatment plan - Confirmed that information from patient's hospitalization at our facility was received by [facility], but case has not yet been reviewed. Still awaiting determination of acceptance status. 09/21 - continue current meds and tx plan. Reinstitute medically necessary private room as hx of aggression, labile mood, poor ability to keep contact precautions with COVID, hx homelessness higher risk category 09/22 - 09/23 - continue current meds and tx plan. 09/24 continue current meds and tx plan. MNPR for now as less paranoid and more visible on unit. 09/25 - Continue current treatment plan - patient remains irritable, paranoid, and delusional - Continue MNPR for paranoia and irritability 09/26 - Continue current treatment plan - Still awaiting response from [facility], 3 weeks after initially referral packet was sent - Pt did reportedly complete her Medical Assistance application. Consider repeat meeting with the county to discuss options for diversion planning; though these remain very limited - As review of patient's treatment plan has historically been very upsetting to the patient, discharge plans have not changed, and the therapeutic value of the review is limited - discussed with patient who did agree to review her treatment plan once a week unless there are changes in the interim. This was confirmed by multiple parties and can be reviewed with greater frequency at which time patient better tolerates the conversation and the therapeutic value is increased. 09/27 - 10/01 - Continue current treatment plan - Still awaiting response from [facility] - Pt is unwilling to consider alternative housing options - she maintains the delusion that she has a penthouse in [place] which has been confirmed to be untrue. 10/02 - Continue as above - medications renewed - Still awaiting response from [facility] - Pt maintains fixed delusions that are interfering significantly with patient's ability to adequately care for herself outside of a structured/supervised setting 10/03 - Continue current medication regimen - 30-day treatment review; treatment plan reviewed with patient who did become angry when length of stay was reviewed. Again became acutely agitated during conversation with provider today - Pt demonstrated very loud yelling, acute agitation, and inability to appropriately communicate frustration. These concerns, in addition to numerous failed attempts at discharge, continue to be evidence as to why patient is not appropriate to be discharged to the community. - Pt is not appropriate to go outside based on episodes of acute agitation and continued delusions which interfere with patient's ability to ensure appropriate behavior 10/04 - 10/05 - Continue current medication regimen - Pt remains inappropriate to go outside - Plan remains for transfer to the [facility] - no response regarding acceptance 10/06 - 10/07 -continue current plan. Amended court order to be obtained Wednesday and sent to the [facility] for acceptance and put patient on their wait list. 10/08 - 10/10 - continue current plan. Discharge plan continues to be placement at [facility] - Pt continues to be inappropriate to go outside based on continued demands for discharge, delusional thought content, and concerns for elopement risk if taken outside the hospital setting 10/11 - Continue current treatment plan - anticipated discharge to [facility] - Did review in detail expectations related to ability to go outside. Expectations were provided to patient, who initially verbalized understanding and repeated them back to this provider. Unfortunately, when expectations were reviewed right before attempt to go outside, patient escalated and demanded discharge and stated she was not going to the [facility]. Based on this behavior, it was deemed patient was not appropriate to go outside today. - Received amended court order to reflect updated 304 commitment to [facility] - following up to formally place patient on the waitlist 10/12 - Continue current medication regimen - pt due for next Invega Sustenna injection on 10/14 - Received confirmation that patient was formally placed on the waitlist at [facility], no available bed date at this time - Pt updated on status of [facility] referral, also updated that we were informed there is another Latvian-speaking patient on the unit she will be admitted to and they have two Latvian-speaking staff/interpreters on service. 10/13 - Continue current medication regimen - maintenance injection of Invega Sustenna due 10/14 - Awaiting bed date at [facility] 10/14 - Continue current treatment plan - Pt tolerated first maintenance injection of Invega Sustenna ordered for today - will be due again on 11/11 for next maintenance injection - Awaiting bed date and transfer to [facility] - Pt continues to be too delusional and agitated to tolerate a visit outside, will continue to assess 10/15 - 10/19 - Continue current treatment plan - Awaiting bed date and transfer to [facility] (2) Noncompliance with medication regimen: 09/02 - Unable to clarify if pt has been taking her medications regularly in the days since discharge. She at first indicated that she was not then indicated the medications arein a bag of hers but did not indicate actually taking them. The patient also claims to not recall the names of any of her medications and reports that she does not have the conditions for which her known medications are clearly intended. Possible cognitive impairments. might be impacting medication compliance. language impairments with pt not speaking Swedish impacting compliance concerns. -The patient's underlying psychiatric condition will be actively treated. It is hoped that with treatment we will be able to improve medication compliance and also address aspects that impact compliance and improve this with appropriate interventions. CANTOR form of Invega to be continued at this time, next dose not due for another 2 weeks. Pt took meds this morning that were offered to her but given her extensive non compliance prior to, during and seeming after recent admission and lack of insight to her dx and presentation and indicating that recent hospitalization was quite helpful for her and her indicating wanting to continue her medications as was rx' at end of recent [facility] admission and were instructed to take at that discharge. I am in favor of medication over objection if pt objects to taking her medication during the course of this admission or if it is determined that pt is checking or not actually taking her medications. 10/16 - Pt has continued to tolerate Invega Sustenna maintenance injections. Last received injection on 10/15/2019, due for next injections of 234mg IM on 11/11 (3) Homeless: 09/03/19 -In the past, the patient has lived with family members. However, this is clearly not an option at the present time. The context is that the patient reportedly was [facility] a year because of her making terroristic threats against the family. While it does seem clear that the family wants to help protect her, they are unable to safely provide residential. Given the patient's history of neglect of self-care, medication nonadherence, and possible cognitive deficits we are going to investigate structured residential programs as part of our discharge planning. 09/03 -patient has consistently refused assistance with housing, insisting that she has a house in [place], although has not been able to provide an address and her family states this is not true. 09/06 - Patient's grandson called unit yesterday to provide additional information, stating the patient has been homeless for quite some time and there is no valid address for the patient 09/29 pt remains delusional about having a home and is agitated if this is approached or challenged in anyway 09/30 did not discuss further today as this is a point of delusion and been shown to be refractory to challenging in anyway (4) Involuntary commitment: 09/03 -patient on a 304 IOC, readmitted on a 302. We will file for a 306 conversion hearing. 09/04 - 306 hearing scheduled for 09/05; anticipate referral to [facility]. 09/05 -306 conversion granted, now here on a 304 involuntary commitment. 09/07 - Referral packet sent to [facility] on 09/06 (5) Nicotine abuse: 09/02 - Nicotine Patch 7mg topical daily resumed, and smoking cessation to be done when pt is in more apposite mental state to do so Inventory Assets Strengths: concerned family members, pleasant on approach Needs: stable housing, improved compliance to medication and treatment plan. Risk Factors Assessment Male: No : No Do You Have Access To A Gun?: No Health Problems: No Mental Health Diagnoses: Yes Substance Use Disorders: No Previous Attempt: Yes (Per family, patient denies) Previous Psychiatric Hospitalization: Yes Hopelessness: No Smoker: Yes Protective Factors Assessment : No Responsible for Young Children: No Employed: No Stable Relationships: No Supportive Family: No Good Rapport with Provider: No Interval History Identifying Information ANDREW CYR is a 64-year-old F who currently is homeless in [facility], has a history of schizoaffective disorder, bipolar type, and was admitted on 09/03/19 05:42 on a 302 involuntary commitment for psychosis, suicidal ideation, inability to provide for basic needs, and medication noncompliance. Chief Complaint "Could you please go?" Review of Systems Notes Pt was largely uncooperative with interview. She did not verbalize any physical complaints. Sleep Information Total Hours of Sleep: 4.5 Sleep Comments: ate snacks of 4 boxes of cereals with milks at 0045. got drinks at 0500 and salt packets at 0530. Meal Information Percent Meal Consumed - Breakfast: 100 Percent Meal Consumed - Lunch: 100 Percent Meal Consumed - Dinner: 100 Nutrition Comment: documented from the pt. meal record for 10/18/2019 Subjective Subjective Patient was seen & assessed and interval progress reviewed with treatment team. Staff report the patient continues to be labile and predominantly irritable. She continues to be compliant with scheduled medications. Pt did participate in community meeting again this morning, but no other group programming. Pt was seen today in attempt to assess progress since admission. Latvian-Swedish conversation was conducted with assistance from [facility] interpretive service - Amee #[id number]. Pt allowed for complete dialing and connection the the hi lo driver before beginning to speak. She did state "Could you please go? I'm not interested in what you say. I've been listening for 3 months now and you are not telling me what I want to here. Please go away, I am not going to speak to you." Additional observations of patient's behavior occurred throughout the day. She continues to be largely isolative. Pt is still observed to be talking to herself in her room. She does eat meals in the day area and is polite to staff when requesting drinks or verbalizing needs. Pt has not been as cooperative with interviews for the past few days, and does appear more defeated and frustrated. Physical Exam Psychiatric Orientation: alert and + guarded (uncooperative, irritable) Apperance: appropriately dressed (casually, in t-shirt and leggings), + disheveled (hair appearing unkempt) and appeared stated age Eye Contact: + poor eye contact (avoiding direct eye contact) Motor Behavior: steady gait and station and no abnormal motor movements Speech: normal rate/rhythm/volume of speech Affect: + irritable affect Thought Content: + paranoid, + delusions and + persecution Hallucinations: patient continues to be observed to be talking to herself when in her room alone Estimated Intelligence: consistent with education level Insight: + severely impaired insight Judgement: + severely impaired judgement Vital Signs (Past 24 Hours) Last Vital Signs Temp 36.7 C 10/20/19 06:48 Pulse 87 10/20/19 06:49 Resp 18 10/20/19 06:48 BP 146/89 H 10/20/19 06:49 Pulse Ox 95 09/03/19 05:47 Results & Data ([facility]) Current Inpatient Medications Current Inpatient Medications: Current Inpatient Medications Acetaminophen (Tylenol) 650 mg PO Q4H PRN PRN Reason: Headache or Minor Fever Stop: 11/02/19 08:46 Al Hydrox/Mg Hydrox/Simethicone (Maalox) 30 ml PO Q4H PRN PRN Reason: GI Upset Stop: 11/02/19 08:46 Bismuth Subsalicylate (Kaopectate) 15 ml PO PRN PRN PRN Reason: Loose Stool Stop: 11/02/19 08:46 Clotrimazole (Lotrimin 1%) 1 appln EXT BID [facility] Stop: 10/24/19 20:59 Last Admin: 10/20/19 08:36 Dose: 1 appln Documented by: Docusate Sodium (Colace) 100 mg PO BID CLARISA Stop: 11/02/19 20:59 Last Admin: 10/20/19 08:35 Dose: 100 mg Documented by: Haloperidol (Haldol) 5 mg PO Q6H PRN PRN Reason: Agitation/Psychosis Stop: 11/04/19 15:13 Last Admin: 10/19/19 18:27 Dose: 5 mg Documented by: Hydroxyzine HCl (Vistaril) 50 mg PO HSZ PRN PRN Reason: Insomnia Stop: 11/02/19 08:46 Hydroxyzine HCl (Vistaril) 25 mg PO Q4H PRN PRN Reason: Anxiety Stop: 11/02/19 08:46 Levothyroxine Sodium (Synthroid) 75 mcg PO DAILYBB CLARISA Stop: 11/02/19 07:59 Last Admin: 10/20/19 08:35 Dose: 75 mcg Documented by: [place] Carbonate (Eskalith) 450 mg PO BID [facility] Stop: 11/02/19 08:59 Last Admin: 10/20/19 08:36 Dose: 450 mg Documented by: Magnesium Hydroxide (Milk Of Magnesia) 30 ml PO DAILY PRN PRN Reason: Constipation Stop: 11/02/19 08:46 Paliperidone Palmitate (Invega Sustenna) 234 mg IM Q28D@0900 [facility] Stop: 11/14/19 10:59 Last Admin: 10/15/19 11:32 Dose: 234 mg Documented by: Simvastatin (Zocor) 10 mg PO HS [facility] Stop: 11/02/19 21:59 Last Admin: 10/19/19 20:42 Dose: 10 mg Documented by: Sodium Chloride ([place] Nasal) 1 - 2 sprays NA PRN PRN PRN Reason: Nasal Dryness/Congestion Stop: 11/02/19 08:46 Mental Health & Subst Abuse Tx Psychiatrist Name of Psychiatrist: . Psychiatrist's Phone Number: . Date of Appointment with Psychiatrist: 09/14/19 Time of Appointment with Psychiatrist: . Psychiatric Appointment Comment: . Therapist Name of Therapist: . Hacksaw Inspector Name of Hacksaw Inspector: [facility] Lizzy Pandey Phone Number for Hacksaw Inspector: [phone] Post Discharge Appointments Primary Care Physician Name Of Family Doctor: [facility] Primary Care Provider Appointment Comment: [phone], [address], [place] [address]
[2019-10-20] MEDS: SIMVASTATIN 10 MG TAB PO SCH (20:47)
[2019-10-21] MEDS: DOCUSATE SODIUM 100 MG CAP PO SCH ×2 (07:43→20:16)
[2019-10-21] MEDS: LITHIUM CARBONATE 450 MG TABCR PO SCH ×2 (07:43→20:16)
[2019-10-21] MEDS: LEVOTHYROXINE SODIUM 75 MCG TABLET PO SCH (07:43)
[2019-10-21] MEDS: CLOTRIMAZOLE 1% CR 15 GM TUBE EXT SCH ×2 (07:45→20:16)
--- NOTE | 2019-10-21 12:27 | Psychiatric Progress Note ---
Date of Service October 21, 2019 Impression / Recommendations Impression 63-year-old Hong Konger female with schizoaffective disorder bipolar type admitted on a 302 commitment 4 days after being discharged from this unit on 08/29 after a 27-day hospitalization. She was discharged on a 304 IOC, and returned to the ER later that same day, after police were called due to bizarre behavior at a local grocery store, and was again discharged. Readmitted several days later with psychotic symptoms including paranoia, delusions of persecution (that people were trying to poison/harm her), refusing to eat with hypokalemia, homelessness, delusions that she owns a home, and inability to provide for her own basic needs. Additionally, family members who petitioned reported she made suicidal statements and walked into traffic, and reported delusions that her son had stabbed her in her intestines were hanging out. They also reported she had been noncompliant with oral psychotropic medications, and although her adult protective caseworker assisted her to fill these on the day of discharge, she did not bring them into the hospital with her and says she does not know where they are. She has repeatedly demonstrated complete inability to provide for her own basic needs outside of the hospital, including health, welfare, mcfp, food, and safety. Inpatient treatment is medically necessary due to the severity of her symptoms and risk for suicide if discharged. She is now on a 304 involuntary commitment, has been started on Invega Sustenna, and has been referred to the [facility] long-term inpatient treatment. Referral was made on 09/07/2019, received update on 10/12/2019 that patient is officially on the waitlist - specific bed date remains uncertain at this time. Pt updated with this information. Patient isolative in her room but remains delusional with believes that she has a home in [place] she can return to, and therefore continues to be uncooperative with appropriate discharge planning and is not demonstrating ability to tolerate community re-entry. 10/20--reviewed. Continue current meds and treatment plan pending [facility] hospital bed date. Inventory Assets Strengths: concerned family members, pleasant on approach Needs: stable housing, improved compliance to medication and treatment plan. Risk Factors Assessment Male: No : No Do You Have Access To A Gun?: No Health Problems: No Mental Health Diagnoses: Yes Substance Use Disorders: No Previous Attempt: Yes (Per family, patient denies) Previous Psychiatric Hospitalization: Yes Hopelessness: No Smoker: Yes Protective Factors Assessment : No Responsible for Young Children: No Employed: No Stable Relationships: No Supportive Family: No Good Rapport with Provider: No Interval History Identifying Information ANDREW CYR is a 64-year-old F who currently is homeless in [facility], has a history of schizoaffective disorder, bipolar type, and was admitted on 09/03/19 05:42 on a 302 involuntary commitment for psychosis, suicidal i deation, inability to provide for basic needs, and medication noncompliance. Chief Complaint "when can I leave? I should have to wait so long". Review of Systems Sleep Information Total Hours of Sleep: 5.25 Sleep Comments: andrew was awake at 0300-ate cereals with milk for snacks. she was awake again at 0515 but stayed in her room. Meal Information Percent Meal Consumed - Breakfast: 100 Percent Meal Consumed - Lunch: 100 Percent Meal Consumed - Dinner: 100 Nutrition Comment: documented from the pt. meal record Subjective Subjective Patient was seen & assessed and interval progress reviewed with nursing and social work. Increasingly frustrated with providers over uncertainty re: length of stay. She isn't acting out. Continues to mainly talk to self in room but did attend community meeting when another syriac speaker present. Physical Exam Psychiatric Orientation: alert Apperance: appropriately dressed and appropriately groomed Eye Contact: + fair eye contact Motor Behavior: steady gait and station Speech: normal rate/rhythm/volume of speech Affect: euthymic affect Mood: + depressed mood (soley as "incarcerated") Thought Process: + tangential thought process Thought Content: + delusions (that she is being punished for going to the [employer]) Suicidal Thoughts: denies suicidal thoughts Homicidal Thoughts: denies homicidal thoughts Hallucinations: no auditory hallucinations and no visual hallucinations Cognition: + attention not intact Insight: + severely impaired insight Judgement: + severely impaired judgement Vital Signs (Past 24 Hours) Last Vital Signs Temp 36.9 C 10/21/19 06:51 Pulse 83 10/21/19 06:52 Resp 18 10/21/19 06:51 BP 134/84 10/21/19 06:52 Pulse Ox 95 09/03/19 05:47 Results & Data (U) Current Inpatient Medications Current Inpatient Medications: Current Inpatient Medications Acetaminophen (Tylenol) 650 mg PO Q4H PRN PRN Reason: Headache or Minor Fever Stop: 11/02/19 08:46 Al Hydrox/Mg Hydrox/Simethicone (Maalox) 30 ml PO Q4H PRN PRN Reason: GI Upset Stop: 11/02/19 08:46 Bismuth Subsalicylate (Kaopectate) 15 ml PO PRN PRN PRN Reason: Loose Stool Stop: 11/02/19 08:46 Clotrimazole (Lotrimin 1%) 1 appln EXT BID [facility] Stop: 10/24/19 20:59 Last Admin: 10/21/19 07:45 Dose: 1 appln Documented by: Docusate Sodium (Colace) 100 mg PO BID [facility] Stop: 11/02/19 20:59 Last Admin: 10/21/19 07:43 Dose: 100 mg Documented by: Haloperidol (Haldol) 5 mg PO Q6H PRN PRN Reason: Agitation/Psychosis Stop: 11/04/19 15:13 Last Admin: 10/19/19 18:27 Dose: 5 mg Documented by: Hydroxyzine HCl (Vistaril) 50 mg PO HSZ PRN PRN Reason: Insomnia Stop: 11/02/19 08:46 Hydroxyzine HCl (Vistaril) 25 mg PO Q4H PRN PRN Reason: Anxiety Stop: 11/02/19 08:46 Levothyroxine Sodium (Synthroid) 75 mcg PO DAILYBB [facility] Stop: 11/02/19 07:59 Last Admin: 10/21/19 07:43 Dose: 75 mcg Documented by: [place] Carbonate (Eskalith) 450 mg PO BID [facility] Stop: 11/02/19 08:59 Last Admin: 10/21/19 07:43 Dose: 450 mg Documented by: Magnesium Hydroxide (Milk Of Magnesia) 30 ml PO DAILY PRN PRN Reason: Constipation Stop: 11/02/19 08:46 Paliperidone Palmitate (Invega Sustenna) 234 mg IM Q28D@0900 [facility] Stop: 11/14/19 10:59 Last Admin: 10/15/19 11:32 Dose: 234 mg Documented by: Simvastatin (Zocor) 10 mg PO HS [facility] Stop: 11/02/19 21:59 Last Admin: 10/20/19 20:47 Dose: 10 mg Documented by: Sodium Chloride ([place] Nasal) 1 - 2 sprays NA PRN PRN PRN Reason: Nasal Dryness/Congestion Stop: 11/02/19 08:46 Mental Health & Subst Abuse Tx Psychiatrist Name of Psychiatrist: . Psychiatrist's Phone Number: . Date of Appointment with Psychiatrist: 09/14/19 Time of Appointment with Psychiatrist: . Psychiatric Appointment Comment: . Therapist Name of Therapist: . Filling Machine Set Up Mechanic Name of Filling Machine Set Up Mechanic: [facility] - Lizzy Pandey Phone Number for Filling Machine Set Up Mechanic: [phone] Post Discharge Appointments Primary Care Physician Name Of Family Doctor: [facility] Primary Care Provider Appointment Comment: [id number], [address], [place] [address]
[2019-10-21] MEDS: SIMVASTATIN 10 MG TAB PO SCH (20:22)
[2019-10-22] MEDS: LITHIUM CARBONATE 450 MG TABCR PO SCH ×2 (09:19→21:09)
[2019-10-22] MEDS: DOCUSATE SODIUM 100 MG CAP PO SCH ×2 (09:19→21:08)
[2019-10-22] MEDS: CLOTRIMAZOLE 1% CR 15 GM TUBE EXT SCH ×2 (09:19→21:09)
[2019-10-22] MEDS: LEVOTHYROXINE SODIUM 75 MCG TABLET PO SCH (09:19)
--- NOTE | 2019-10-22 11:27 | Psychiatric Progress Note ---
Date of Service October 22, 2019 Impression / Recommendations Impression 63-year-old Greek female with schizoaffective disorder bipolar type admitted on a 302 commitment 4 days after being discharged from this unit on 08/29 after a 27-day hospitalization. She was discharged on a 304 IOC, and returned to the ER later that same day, after police were called due to bizarre behavior at a local grocery store, and was again discharged. Readmitted several days later with psychotic symptoms including paranoia, delusions of persecution (that people were trying to poison/harm her), refusing to eat with hypokalemia, homelessness, delusions that she owns a home, and inability to provide for her own basic needs. Additionally, family members who petitioned reported she made suicidal statements and walked into traffic, and reported delusions that her son had stabbed her in her intestines were hanging out. They also reported she had been noncompliant with oral psychotropic medications, and although her dependency case manager assisted her to fill these on the day of discharge, she did not bring them into the hospital with her and says she does not know where they are. She has repeatedly demonstrated complete inability to provide for her own basic needs outside of the hospital, including health, welfare, intermediate, food, and safety. Inpatient treatment is medically necessary due to the severity of her symptoms and risk for suicide if discharged. She is now on a 304 involuntary commitment, has been started on Invega Sustenna, and has been referred to the [facility] long-term inpatient treatment. Referral was made on 09/07/2019, received update on 10/12/2019 that patient is officially on the waitlist - specific bed date remains uncertain at this time. Pt updated with this information. Patient isolative in her room but remains delusional with believes that she has a home in [place] she can return to, and therefore continues to be uncooperative with appropriate discharge planning and is not demonstrating ability to tolerate community re-entry. 10/21--reviewed. Continue current meds and treatment plan pending [facility] hospital bed date. Inventory Assets Strengths: concerned family members, pleasant on approach Needs: stable housing, improved compliance to medication and treatment plan. Risk Factors Assessment Male: No : No Do You Have Access To A Gun?: No Health Problems: No Mental Health Diagnoses: Yes Substance Use Disorders: No Previous Attempt: Yes (Per family, patient denies) Previous Psychiatric Hospitalization: Yes Hopelessness: No Smoker: Yes Protective Factors Assessment : No Responsible for Young Children: No Employed: No Stable Relationships: No Supportive Family: No Good Rapport with Provider: No Interval History Identifying Information ANDREW CYR is a 64-year-old F who currently is homeless in [facility], has a history of schizoaffective disorder, bipolar type, and was admitted on 09/03/19 05:42 on a 302 involuntary commitment for psychosis, suicidal i deation, inability to provide for basic needs, and medication noncompliance. Chief Complaint "why vamshi't I leave doctora". Review of Systems Sleep Information Total Hours of Sleep: 6 Sleep Comments: andrew ate multi cereals with milk at 2315 then appeared to sleep until awakened for am vital signs. she is now eating more snacks of cereals with milk. Meal Information Percent Meal Consumed - Breakfast: 100 Percent Meal Consumed - Lunch: 100 Percent Meal Consumed - Dinner: 100 Nutrition Comment: documented from the pt. meal record Subjective Subjective Patient was seen & assessed and interval progress reviewed with nursing and social work. No change overnight. She invited me into her room today. Discussed that we are still awaiting a bed date for her at [facility] as she will need to live there for a period of time for treatment. She said waldo but was than rambling to self in hallway. Physical Exam Psychiatric Orientation: alert Apperance: appropriately groomed Eye Contact: + fair eye contact Motor Behavior: steady gait and station Speech: normal rate/rhythm/volume of speech Affect: + depressed affect Mood: + depressed mood Thought Process: + tangential thought process Thought Content: + delusions Suicidal Thoughts: denies suicidal thoughts Homicidal Thoughts: denies homicidal thoughts Insight: + impaired insight Judgement: + impaired judgement Vital Signs (Past 24 Hours) Last Vital Signs Temp 36.9 C 10/22/19 06:48 Pulse 87 10/22/19 06:49 Resp 18 10/22/19 06:48 BP 131/86 10/22/19 06:49 Pulse Ox 95 09/03/19 05:47 Results & Data ([facility]) Current Inpatient Medications Current Inpatient Medications: Current Inpatient Medications Acetaminophen (Tylenol) 650 mg PO Q4H PRN PRN Reason: Headache or Minor Fever Stop: 11/02/19 08:46 Al Hydrox/Mg Hydrox/Simethicone (Maalox) 30 ml PO Q4H PRN PRN Reason: GI Upset Stop: 11/02/19 08:46 Bismuth Subsalicylate (Kaopectate) 15 ml PO PRN PRN PRN Reason: Loose Stool Stop: 11/02/19 08:46 Clotrimazole (Lotrimin 1%) 1 appln EXT BID [facility] Stop: 10/24/19 20:59 Last Admin: 10/22/19 09:19 Dose: 1 appln Documented by: Docusate Sodium (Colace) 100 mg PO BID [facility] Stop: 11/02/19 20:59 Last Admin: 10/22/19 09:19 Dose: 100 mg Documented by: Haloperidol (Haldol) 5 mg PO Q6H PRN PRN Reason: Agitation/Psychosis Stop: 11/04/19 15:13 Last Admin: 10/19/19 18:27 Dose: 5 mg Documented by: Hydroxyzine HCl (Vistaril) 50 mg PO HSZ PRN PRN Reason: Insomnia Stop: 11/02/19 08:46 Hydroxyzine HCl (Vistaril) 25 mg PO Q4H PRN PRN Reason: Anxiety Stop: 11/02/19 08:46 Levothyroxine Sodium (Synthroid) 75 mcg PO DAILYBB [facility] Stop: 11/02/19 07:59 Last Admin: 10/22/19 09:19 Dose: 75 mcg Documented by: [place] Carbonate (Eskalith) 450 mg PO BID [facility] Stop: 11/02/19 08:59 Last Admin: 10/22/19 09:19 Dose: 450 mg Documented by: Magnesium Hydroxide (Milk Of Magnesia) 30 ml PO DAILY PRN PRN Reason: Constipation Stop: 11/02/19 08:46 Paliperidone Palmitate (Invega Sustenna) 234 mg IM Q28D@0900 [facility] Stop: 11/14/19 10:59 Last Admin: 10/15/19 11:32 Dose: 234 mg Documented by: Simvastatin (Zocor) 10 mg PO HS [facility] Stop: 11/02/19 21:59 Last Admin: 10/21/19 20:22 Dose: 10 mg Documented by: Sodium Chloride ([place] Nasal) 1 - 2 sprays NA PRN PRN PRN Reason: Nasal Dryness/Congestion Stop: 11/02/19 08:46 Mental Health & Subst Abuse Tx Psychiatrist Name of Psychiatrist: . Psychiatrist's Phone Number: . Date of Appointment with Psychiatrist: 09/14/19 Time of Appointment with Psychiatrist: . Psychiatric Appointment Comment: . Therapist Name of Therapist: . Conduit Cleaner Name of Conduit Cleaner: [facility] - Lizzy Pandey Phone Number for Conduit Cleaner: [phone] Post Discharge Appointments Primary Care Physician Name Of Family Doctor: [facility] Primary Care Provider Appointment Comment: [id number], [address], [place] [address]
[2019-10-22] MEDS: SIMVASTATIN 10 MG TAB PO SCH (21:08)
[2019-10-23] MEDS: DOCUSATE SODIUM 100 MG CAP PO SCH ×2 (08:41→21:11)
[2019-10-23] MEDS: CLOTRIMAZOLE 1% CR 15 GM TUBE EXT SCH ×2 (08:41→21:11)
[2019-10-23] MEDS: LEVOTHYROXINE SODIUM 75 MCG TABLET PO SCH (08:41)
[2019-10-23] MEDS: LITHIUM CARBONATE 450 MG TABCR PO SCH ×2 (08:41→21:11)
--- NOTE | 2019-10-23 10:00 | Psychiatric Progress Note ---
Date of Service October 23, 2019 Impression / Recommendations Impression 63-year-old Rwandan female with schizoaffective disorder bipolar type admitted on a 302 commitment 4 days after being discharged from this unit on 08/29 after a 27-day hospitalization. She was discharged on a 304 IOC, and returned to the ER later that same day, after police were called due to bizarre behavior at a local grocery store, and was again discharged. Readmitted several days later with psychotic symptoms including paranoia, delusions of persecution (that people were trying to poison/harm her), refusing to eat with hypokalemia, homelessness, delusions that she owns a home, and inability to provide for her own basic needs. Additionally, family members who petitioned reported she made suicidal statements and walked into traffic, and reported delusions that her son had stabbed her in her intestines were hanging out. They also reported she had been noncompliant with oral psychotropic medications, and although her complex case manager assisted her to fill these on the day of discharge, she did not bring them into the hospital with her and says she does not know where they are. She has repeatedly demonstrated complete inability to provide for her own basic needs outside of the hospital, including health, welfare, intermediate, food, and safety. Inpatient treatment is medically necessary due to the severity of her symptoms and risk for suicide if discharged. She is now on a 304 involuntary commitment, has been started on Invega Sustenna, and has been referred to the [facility] long-term inpatient treatment. Referral was made on 09/07/2019, received update on 10/12/2019 that patient is officially on the waitlist - specific bed date remains uncertain at this time. Pt updated with this information. Patient isolative in her room but remains delusional with believes that she has a home in [place] she can return to, and therefore continues to be uncooperative with appropriate discharge planning and is not demonstrating ability to tolerate community re-entry. 10/22--reviewed. Continue current meds and treatment plan pending [facility] hospital bed date. Will add PPI for presumed reflux/?hiatal hernia hx. Would need to go off unit for abdominal films and currently NAD. Inventory Assets Strengths: concerned family members, pleasant on approach Needs: stable housing, improved compliance to medication and treatment plan. Risk Factors Assessment Male: No : No Do You Have Access To A Gun?: No Health Problems: No Mental Health Diagnoses: Yes Substance Use Disorders: No Previous Attempt: Yes (Per family, patient denies) Previous Psychiatric Hospitalization: Yes Hopelessness: No Smoker: Yes Protective Factors Assessment : No Responsible for Young Children: No Employed: No Stable Relationships: No Supportive Family: No Good Rapport with Provider: No Interval History Identifying Information ANDREW CYR is a 64-year-old F who currently is homeless in [facility], has a history of schizoaffective disorder, bipolar type, and was admitted on 09/03/19 05:42 on a 302 involuntary commitment for psychosis, suicidal ideation, inability to provide for basic needs, and medication noncompliance. Chief Complaint c/o stomach pain last pm Review of Systems Sleep Information Total Hours of Sleep: 6.25 Sleep Comments: andrew ate multi cereals with milk at 2315 then appeared to sleep until awakened for am vital signs. she is now eating more snacks of cereals with milk. Meal Information Percent Meal Consumed - Breakfast: 100 Percent Meal Consumed - Lunch: 100 Percent Meal Consumed - Dinner: 100 Nutrition Comment: documented from the pt. meal record Subjective Subjective Patient was seen & assessed and interval progress reviewed with treatment team. eating well, abdomen non tender, location above umbilicus, no issues with bowel movements. Today tells me pain worse before meal. Is ambulating in [place]ang in [place]. Physical Exam Psychiatric Orientation: alert Apperance: appropriately groomed Eye Contact: + fair eye contact Motor Behavior: steady gait and station Speech: normal rate/rhythm/volume of speech Affect: + depressed affect Mood: + depressed mood Thought Process: + tangential thought process Thought Content: + preoccupation and + delusions (tells me she can leave as owns a building in the [facility], money in [place]) Suicidal Thoughts: denies suicidal thoughts Homicidal Thoughts: denies homicidal thoughts Hallucinations: no auditory hallucinations and no visual hallucinations though talks to self Insight: + severely impaired insight Judgement: + severely impaired judgement Vital Signs (Past 24 Hours) Last Vital Signs Temp 36.6 C 10/23/19 07:07 Pulse 79 10/23/19 07:08 Resp 16 10/23/19 07:07 BP 131/81 10/23/19 07:08 Pulse Ox 95 09/03/19 05:47 Results & Data ([facility]) Current Inpatient Medications Current Inpatient Medications: Current Inpatient Medications Acetaminophen (Tylenol) 650 mg PO Q4H PRN PRN Reason: Headache or Minor Fever Stop: 11/02/19 08:46 Last Admin: 10/22/19 18:54 Dose: 650 mg Documented by: Al Hydrox/Mg Hydrox/Simethicone (Maalox) 30 ml PO Q4H PRN PRN Reason: GI Upset Stop: 11/02/19 08:46 Bismuth Subsalicylate (Kaopectate) 15 ml PO PRN PRN PRN Reason: Loose Stool Stop: 11/02/19 08:46 Clotrimazole (Lotrimin 1%) 1 appln EXT BID [facility] Stop: 10/24/19 20:59 Last Admin: 10/23/19 08:41 Dose: 1 appln Documented by: Docusate Sodium (Colace) 100 mg PO BID [facility] Stop: 11/02/19 20:59 Last Admin: 10/23/19 08:41 Dose: 100 mg Documented by: Haloperidol (Haldol) 5 mg PO Q6H PRN PRN Reason: Agitation/Psychosis Stop: 11/04/19 15:13 Last Admin: 10/19/19 18:27 Dose: 5 mg Documented by: Hydroxyzine HCl (Vistaril) 50 mg PO HSZ PRN PRN Reason: Insomnia Stop: 11/02/19 08:46 Hydroxyzine HCl (Vistaril) 25 mg PO Q4H PRN PRN Reason: Anxiety Stop: 11/02/19 08:46 Levothyroxine Sodium (Synthroid) 75 mcg PO DAILYBB [facility] Stop: 11/02/19 07:59 Last Admin: 10/23/19 08:41 Dose: 75 mcg Documented by: [place] Carbonate (Eskalith) 450 mg PO BID [facility] Stop: 11/02/19 08:59 Last Admin: 10/23/19 08:41 Dose: 450 mg Documented by: Magnesium Hydroxide (Milk Of Magnesia) 30 ml PO DAILY PRN PRN Reason: Constipation Stop: 11/02/19 08:46 Paliperidone Palmitate (Invega Sustenna) 234 mg IM Q28D@0900 [facility] Stop: 11/14/19 10:59 Last Admin: 10/15/19 11:32 Dose: 234 mg Documented by: Simvastatin (Zocor) 10 mg PO HS [facility] Stop: 11/02/19 21:59 Last Admin: 10/22/19 21:08 Dose: 10 mg Documented by: Sodium Chloride ([place] Nasal) 1 - 2 sprays NA PRN PRN PRN Reason: Nasal Dryness/Congestion Stop: 11/02/19 08:46 Mental Health & Subst Abuse Tx Psychiatrist Name of Psychiatrist: . Psychiatrist's Phone Number: . Date of Appointment with Psychiatrist: 09/14/19 Time of Appointment with Psychiatrist: . Psychiatric Appointment Comment: . Therapist Name of Therapist: . Milk Delivery Driver Name of Milk Delivery Driver: [facility] - Lizzy Pandey Phone Number for Milk Delivery Driver: [phone] Post Discharge Appointments Primary Care Physician Name Of Family Doctor: [facility] Primary Care Provider Appointment Comment: [id number], [address], [place] [address]
[2019-10-23] MEDS: PANTOprazole 40 MG TAB PO SCH ×2 (10:49→12:45)
[2019-10-23] MEDS: SIMVASTATIN 10 MG TAB PO SCH (21:11)
[2019-10-24] MEDS: LEVOTHYROXINE SODIUM 75 MCG TABLET PO SCH (08:27)
[2019-10-24] MEDS: LITHIUM CARBONATE 450 MG TABCR PO SCH ×2 (08:27→20:29)
[2019-10-24] MEDS: DOCUSATE SODIUM 100 MG CAP PO SCH ×2 (08:27→20:29)
[2019-10-24] MEDS: PANTOprazole 40 MG TAB PO SCH (08:27)
[2019-10-24] MEDS: CLOTRIMAZOLE 1% CR 15 GM TUBE EXT SCH (08:28)
--- NOTE | 2019-10-24 09:03 | Psychiatric Progress Note ---
Date of Service October 24, 2019 Impression / Recommendations Impression 63-year-old Turkish female with schizoaffective disorder bipolar type admitted on a 302 commitment 4 days after being discharged from this unit on 08/29 after a 27-day hospitalization. She was discharged on a 304 IOC, and returned to the ER later that same day, after police were called due to bizarre behavior at a local grocery store, and was again discharged. Readmitted several days later with psychotic symptoms including paranoia, delusions of persecution (that people were trying to poison/harm her), refusing to eat with hypokalemia, homelessness, delusions that she owns a home, and inability to provide for her own basic needs. Additionally, family members who petitioned reported she made suicidal statements and walked into traffic, and reported delusions that her son had stabbed her in her intestines were hanging out. They also reported she had been noncompliant with oral psychotropic medications, and although her nurse outreach case manager assisted her to fill these on the day of discharge, she did not bring them into the hospital with her and says she does not know where they are. She has repeatedly demonstrated complete inability to provide for her own basic needs outside of the hospital, including health, welfare, care home, food, and safety. Inpatient treatment is medically necessary due to the severity of her symptoms and risk for suicide if discharged. She is now on a 304 involuntary commitment, has been started on Invega Sustenna, and has been referred to the [facility] long[facility]term inpatient treatment. Referral was made on 09/07/2019, received update on 10/12/2019 that patient is officially on the waitlist - specific bed date remains uncertain at this time. Pt updated with this information. Patient isolative in her room but remains delusional with believes that she has a home in [place] she can return to, and therefore continues to be uncooperative with appropriate discharge planning and is not demonstrating ability to tolerate community re-entry. (1) Schizoaffective disorder, bipolar type: 09/03/19 -The patient has been admitted to the locked, secured behavioral health unit and has been placed in special observation room. She is also being monitored with close observations and every 15-minute direct observation. When more stable she will be actively encouraged to participate in individual, group, and activity therapies. We will also attempt to involve the family if the patient permits us to and if they agree. - Resuming medications as was rx'd at time of discharge on 08/29 including po Invega, lithium, and Sustenna. 09/03 -continue current medications, patient is taking them. -File for 306 conversion hearing to be held 09/06/2019. She will likely need referral to the replaced by [facility] due to the need for long-term inpatient treatment. -Reviewed FLP and FG from recent hospitalization 08/07/2019: Cholesterol 221, glucose 109, other values within normal limits. -Attempt to involve family is able; son-in-law Poli is petitioner and was involved in hospitalization so we will ask staff to contact him for collateral information and to determine the family's ability to assist with discharge planning and housing. She has very limited supports in the community and if they are unable to assist her with housing and care, she will likely require long-term hospitalization. -Continue private room for psychosis. 09/04 - Continue current medication regimen - patient has been compliant with medications in this structured environment - 306 conversion hearing scheduled for 09/05 - Meeting with nurse outreach case manager today to discuss treatment options and continue attempts to build rapport - Referral to [facility] is being recommended at this time has patient has repeatedly demonstrated an inability to care for self and provide for basic needs without the support of a structured psychiatric setting. - EKG (WNL). PPD was refused by patient - CXR ordered 09/05 -306 hearing held and patient converted to a 304 involuntary commitment. -Referred to [facility] for long-term inpatient treatment, as patient is severely ill and unable to provide for her own basic needs as a result of her mental illness, and treatment for 27 days on our acute unit was insufficient for successful transition to the community. She was at [facility] for 4 months within the past year, and did respond to treatment there, so returned to the replaced by [facility] as recommended for long-term treatment of SPMI. -EKG and chest x-ray completed for state hospital referral. 09/06 - Continue current medication regimen - Referral to [facility] is being prepared, approval was reportedly received from the county - Ongoing attempt to build rapport with psychiatric nurse outreach case manager 09/07 - 09/09 - Continue current medication regimen - Referral sent to [facility] on 09/07/2019 for recommended long- term psychiatric hospitalization based on chronic medication/treatment non- compliance and repeated demonstration of inability to care for self outside of a structured psychiatric setting. - Pt was informed of [facility] referral today during encounter 09/10 - Continue current medication regimen - [facility] referral sent on 09/07/2019 - requesting updates regarding when case is anticipated to be reviewed and ensure information was received - Pt continues to demand to leave, unable to appreciated the severity of her condition. Ongoing concern related to patient's repeated demonstration of inability to care for self outside of a structured psychiatric setting. 09/11 - Continue current medication regimen - Awaiting acceptance at [facility]. Ongoing concern related to patient's repeated demonstration of inability to care for self outside of a structured psychiatric setting. 09/12 - 09/14 - Pt due for next injection of Invega Sustenna 234mg IM on 09/16. Oral supplementation was continued from last hospitalization due to concern for ongoi ng instability with regard to psychotic symptoms. In preparation for first maintenance dose, will reduce oral supplementation to 3mg qAM and discontinue oral paliperidone on 09/16. Continue lithium 450mg BID unchanged. - Awaiting replay for [facility] regarding referral. Ongoing concern related to patient's repeated demonstration of inability to care for self outside of a structured psychiatric setting. Pt has consistently not been agreeable to diversion planning as a result of fixed delusional beliefs that she has family support, that she has a house to live in, and that she has a lot of money - none of these statements confirmed to be true. 09/15 -Continue treatment plan as previously prescribed 09/16 -now fully converted to invega sustenna. 09/17 - Continue current treatment plan 09/18 - 09/20 - Continue current treatment plan - Confirmed that information from patient's hospitalization at our facility was received by [facility], but case has not yet been reviewed. Still awaiting determination of acceptance status. 09/21 - continue current meds and tx plan. Reinstitute medically necessary private room as hx of aggression, labile mood, poor ability to keep contact precautions with COVID, hx homelessness higher risk category 09/22 - 09/23 - continue current meds and tx plan. 09/24 continue current meds and tx plan. MNPR for now as less paranoid and more visible on unit. 09/25 - Continue current treatment plan - patient remains irritable, paranoid, and delusional - Continue MNPR for paranoia and irritability 09/26 - Continue current treatment plan - Still awaiting response from [facility], 3 weeks after initially referral packet was sent - Pt did reportedly complete her Medical Assistance application. Consider repeat meeting with the county to discuss options for diversion planning; though these remain very limited - As review of patient's treatment plan has historically been very upsetting to the patient, discharge plans have not changed, and the therapeutic value of the review is limited - discussed with patient who did agree to review her treatment plan once a week unless there are changes in the interim. This was confirmed by multiple parties and can be reviewed with greater frequency at which time patient better tolerates the conversation and the therapeutic value is increased. 09/27 - 10/01 - Continue current treatment plan - Still awaiting response from [facility] - Pt is unwilling to consider alternative housing options - she maintains the delusion that she has a penthouse in [place] which has been confirmed to be untrue. 10/02 - Continue as above - medications renewed - Still awaiting response from [facility] - Pt maintains fixed delusions that are interfering significantly with patient's ability to adequately care for herself outside of a structured/supervised setting 10/03 - Continue current medication regimen - 30-day treatment review; treatment plan reviewed with patient who did become angry when length of stay was reviewed. Again became acutely agitated during conversation with provider today - Pt demonstrated very loud yelling, acute agitation, and inability to appropriately communicate frustration. These concerns, in addition to numerous failed attempts at discharge, continue to be evidence as to why patient is not appropriate to be discharged to the community. - Pt is not appropriate to go outside based on episodes of acute agitation and continued delusions which interfere with patient's ability to ensure appropriate behavior 10/04 - 10/05 - Continue current medication regimen - Pt remains inappropriate to go outside - Plan remains for transfer to the [facility] - no response regarding acceptance 10/06 - 10/07 -continue current plan. Amended court order to be obtained Wednesday and sent to the [facility] for acceptance and put patient on their wait list. 10/08 - 10/10 - continue current plan. Discharge plan continues to be placement at [facility] - Pt continues to be inappropriate to go outside based on continued demands for discharge, delusional thought content, and concerns for elopement risk if taken outside the hospital setting 10/11 - Continue current treatment plan - anticipated discharge to [facility] - Did review in detail expectations related to ability to go outside. Expectations were provided to patient, who initially verbalized understanding and repeated them back to this provider. Unfortunately, when expectations were reviewed right before attempt to go outside, patient escalated and demanded discharge and stated she was not going to the [facility]. Based on this behavior, it was deemed patient was not appropriate to go outside today. - Received amended court order to reflect updated 304 commitment to [facility] - following up to formally place patient on the waitlist 10/12 - Continue current medication regimen - pt due for next Invega Sustenna injection on 10/14 - Received confirmation that patient was formally placed on the waitlist at [facility], no available bed date at this time - Pt updated on status of [facility] referral, also updated that we were informed there is another Filipino-speaking patient on the unit she will be admitted to and they have two Filipino-speaking staff/interpreters on service. 10/13 - Continue current medication regimen - maintenance injection of Invega Sustenna due 10/14 - Awaiting bed date at [facility] 10/14 - Continue current treatment plan - Pt tolerated first maintenance injection of Invega Sustenna ordered for today - will be due again on 11/11 for next maintenance injection - Awaiting bed date and transfer to [facility] - Pt continues to be too delusional and agitated to tolerate a visit outside, will continue to assess 10/15 - 10/19 - Continue current treatment plan - Awaiting bed date and transfer to [facility] 10/20--reviewed. Continue current meds and treatment plan pending [facility] bed date. 10/21--reviewed. Continue current meds and treatment plan pending [facility] bed date. 10/22--reviewed. Continue current meds and treatment plan pending [facility] bed date. Will add PPI for presumed reflux/?hiatal hernia hx. Would need to go off unit for abdominal films and currently NAD. 10/23 - Continue current treatment plan. - Awaiting bed date and transfer to [facility] (2) Noncompliance with medication regimen: 09/02 - Unable to clarify if pt has been taking her medications regularly in the days since discharge. She at first indicated that she was not then indicated the medications arein a bag of hers but did not indicate actually kody ing them. The patient also claims to not recall the names of any of her medications and reports that she does not have the conditions for which her known medications are clearly intended. Possible cognitive impairments. might be impacting medication compliance. language impairments with pt not speaking German impacting compliance concerns. -The patient's underlying psychiatric condition will be actively treated. It is hoped that with treatment we will be able to improve medication compliance and also address aspects that impact compliance and improve this with appropriate interventions. CANTOR form of Invega to be continued at this time, next dose not due for another 2 weeks. Pt took meds this morning that were offered to her but given her extensive non compliance prior to, during and seeming after recent admission and lack of insight to her dx and presentation and indicating that recent hospitalization was quite helpful for her and her indicating wanting to continue her medications as was rx' at end of recent [facility] admission and were instructed to take at that discharge. I am in favor of medication over objection if pt objects to taking her medication during the course of this admission or if it is determined that pt is checking or not actually taking her medications. 10/16 - Pt has continued to tolerate Invega Sustenna maintenance injections. Last received injection on 10/15/2019, due for next injections of 234mg IM on 11/11 (3) Homeless: 09/03/19 -In the past, the patient has lived with family members. However, this is clearly not an option at the present time. The context is that the patient reportedly was in correction for approximately a year because of her making terroristic threats against the family. While it does seem clear that the family wants to help protect her, they are unable to safely provide care home. Given the patient's history of neglect of self-care, medication nonadherence, and possible cognitive deficits we are going to investigate structured residential programs as part of our discharge planning. 09/03 -patient has consistently refused assistance with housing, insisting that she has a house in [place], although has not been able to provide an address and her family states this is not true. 09/06 - Patient's grandson called unit yesterday to provide additional information, stating the patient has been homeless for quite some time and there is no valid address for the patient 09/29 pt remains delusional about having a home and is agitated if this is approached or challenged in anyway 09/30 did not discuss further today as this is a point of delusion and been shown to be refractory to challenging in anyway (4) Involuntary commitment: 09/03 -patient on a 304 IOC, readmitted on a 302. We will file for a 306 conversion hearing. 09/04 - 306 hearing scheduled for 09/05; anticipate referral to [facility]. 09/05 -306 conversion granted, now here on a 304 involuntary commitment. 09/07 - Referral packet sent to [facility] on 09/06 (5) Nicotine abuse: 09/02 - Nicotine Patch 7mg topical daily resumed, and smoking cessation to be done when pt is in more apposite mental state to do so Inventory Assets Strengths: concerned family members, pleasant on approach Needs: stable housing, improved compliance to medication and treatment plan. Risk Factors Assessment Male: No : No Do You Have Access To A Gun?: No Health Problems: No Mental Health Diagnoses: Yes Substance Use Disorders: No Previous Attempt: Yes (Per family, patient denies) Previous Psychiatric Hospitalization: Yes Hopelessness: No Smoker: Yes Protective Factors Assessment : No Responsible for Young Children: No Employed: No Stable Relationships: No Supportive Family: No Good Rapport with Provider: No Interval History Identifying Information ANDREW CYR is a 64-year-old F who currently is homeless in [place] area, has a history of schizoaffective disorder, bipolar type, and was admitted on 09/03/19 05:42 on a 302 involuntary commitment for psychosis, suicidal ideation, inability to provide for basic needs, and medication noncompliance. Chief Complaint "Ok. Thank you." Review of Systems Notes Constitutional: denied Cardiovascular: denied Respiratory: denied Gastrointestinal: denied; reports resolution of GI complaints from the weekend Neurological: denied Psychiatric: denies symptoms other than stated above Total of at least 10 systems reviewed, pertinent positives as above and in HPI. Sleep Information Total Hours of Sleep: 7.5 Sleep Comments: andrew ate multi cereals with milk at 2315 then appeared to sleep until awakened for am vital signs. she is now eating more snacks of cereals with milk. Meal Information Percent Meal Consumed - Breakfast: 100 Percent Meal Consumed - Lunch: 100 Percent Meal Consumed - Dinner: 100 Nutrition Comment: documented from the pt. meal record Subjective Subjective Patient was seen & assessed and interval progress reviewed with nursing and social work. Staff report the patient continues to be tearful and appears defeated. She continues to intermittently protest the discharge plans to the [facility]. Pt was seen today to assess progress since admission. Filipino- German conversation was conducted with assistance from [employer] interpretive service - tatiana #[id number]. Pt states she is feeling "Ok. Thank you." Pt was asked how her weekend visits were with the [facility] psychiatrist, and she states "she didn't talk to me" - information that is clearly inaccurate. Pt was reminded that she met with the psychiatrist to discuss complaints of abdominal pain, and was started on a new medication. Pt does admit that her stomach pain/discomfort is resolved and "totally gone." Pt denies other physical concerns today as well. Pt denied any additional needs or concerns at this time. Physical Exam Psychiatric Orientation: alert and + guarded (only superficially cooperative ) Apperance: appropriately dressed (casually, in t-shirt and leggings) and + disheveled Eye Contact: + poor eye contact (staring off in the distance, a few brief episodes of direct eye contact) Motor Behavior: steady gait and station and no abnormal motor movements (primarily observed while sitting on edge of bed) Speech: normal rate/rhythm/volume of speech (brief responses to questions) Affect: + depressed affect (appearing defeated); + mood not congruent with affect Mood: no depressed mood ("Ok. Thank you.") Thought Process: goal directed thought process and + concrete thought process Thought Content: + delusions and + persecution Suicidal Thoughts: denies suicidal thoughts Homicidal Thoughts: denies homicidal thoughts Hallucinations: continues to be observed to be signing and talking to herself in her room Insight: + impaired insight Judgement: + impaired judgement Vital Signs (Past 24 Hours) Last Vital Signs Temp 36.7 C 10/24/19 06:00 Pulse 84 10/24/19 06:38 Resp 18 10/24/19 06:00 BP 145/84 H 10/24/19 06:38 Pulse Ox 95 09/03/19 05:47 Results & Data ([facility]) Current Inpatient Medications Current Inpatient Medications: Current Inpatient Medications Acetaminophen (Tylenol) 650 mg PO Q4H PRN PRN Reason: Headache or Minor Fever Stop: 11/02/19 08:46 Last Admin: 10/22/19 18:54 Dose: 650 mg Documented by: Al Hydrox/Mg Hydrox/Simethicone (Maalox) 30 ml PO Q4H PRN PRN Reason: GI Upset Stop: 11/02/19 08:46 Bismuth Subsalicylate (Kaopectate) 15 ml PO PRN PRN PRN Reason: Loose Stool Stop: 11/02/19 08:46 Clotrimazole (Lotrimin 1%) 1 appln EXT BID [facility] Stop: 10/24/19 20:59 Last Admin: 10/24/19 08:28 Dose: 1 appln Documented by: Docusate Sodium (Colace) 100 mg PO BID [facility] Stop: 11/02/19 20:59 Last Admin: 10/24/19 08:27 Dose: 100 mg Documented by: Haloperidol (Haldol) 5 mg PO Q6H PRN PRN Reason: Agitation/Psychosis Stop: 11/04/19 15:13 Last Admin: 10/19/19 18:27 Dose: 5 mg Documented by: Hydroxyzine HCl (Vistaril) 50 mg PO HSZ PRN PRN Reason: Insomnia Stop: 11/02/19 08:46 Hydroxyzine HCl (Vistaril) 25 mg PO Q4H PRN PRN Reason: Anxiety Stop: 11/02/19 08:46 Levothyroxine Sodium (Synthroid) 75 mcg PO DAILYBB [facility] Stop: 11/02/19 07:59 Last Admin: 10/24/19 08:27 Dose: 75 mcg Documented by: [place] Carbonate (Eskalith) 450 mg PO BID [facility] Stop: 11/02/19 08:59 Last Admin: 10/24/19 08:27 Dose: 450 mg Documented by: Magnesium Hydroxide (Milk Of Magnesia) 30 ml PO DAILY PRN PRN Reason: Constipation Stop: 11/02/19 08:46 Paliperidone Palmitate (Invega Sustenna) 234 mg IM Q28D@0900 [facility] Stop: 11/14/19 10:59 Last Admin: 10/15/19 11:32 Dose: 234 mg Documented by: Pantoprazole Sodium (Protonix) 40 mg PO QAM [facility] Stop: 10/27/19 09:59 Last Admin: 10/24/19 08:27 Dose: 40 mg Documented by: Simvastatin (Zocor) 10 mg PO HS [facility] Stop: 11/02/19 21:59 Last Admin: 10/23/19 21:11 Dose: 10 mg Documented by: Sodium Chloride ([place] Nasal) 1 - 2 sprays NA PRN PRN PRN Reason: Nasal Dryness/Congestion Stop: 11/02/19 08:46 Mental Health & Subst Abuse Tx Psychiatrist Name of Psychiatrist: . Psychiatrist's Phone Number: . Date of Appointment with Psychiatrist: 09/14/19 Time of Appointment with Psychiatrist: . Psychiatric Appointment Comment: . Therapist Name of Therapist: . Emergency Dept Tech Name of Emergency Dept Tech: [facility] - Lizzy Pandey Phone Number for Emergency Dept Tech: [phone] Post Discharge Appointments Primary Care Physician Name Of Family Doctor: [facility] Primary Care Provider Appointment Comment: [address], [address], [place] [address]
[2019-10-24] MEDS: SIMVASTATIN 10 MG TAB PO SCH (20:29)
[2019-10-25] MEDS: PANTOprazole 40 MG TAB PO SCH (08:41)
[2019-10-25] MEDS: LEVOTHYROXINE SODIUM 75 MCG TABLET PO SCH (08:41)
[2019-10-25] MEDS: DOCUSATE SODIUM 100 MG CAP PO SCH ×2 (08:41→21:05)
[2019-10-25] MEDS: LITHIUM CARBONATE 450 MG TABCR PO SCH ×2 (08:41→21:05)
--- NOTE | 2019-10-25 09:51 | Psychiatric Progress Note ---
Date of Service October 25, 2019 Impression / Recommendations Impression 63-year-old Indian female with schizoaffective disorder bipolar type admitted on a 302 commitment 4 days after being discharged from this unit on 08/29 after a 27-day hospitalization. She was discharged on a 304 IOC, and returned to the ER later that same day, after police were called due to bizarre behavior at a local grocery store, and was again discharged. Readmitted several days later with psychotic symptoms including paranoia, delusions of persecution (that people were trying to poison/harm her), refusing to eat with hypokalemia, homelessness, delusions that she owns a home, and inability to provide for her own basic needs. Additionally, family members who petitioned reported she made suicidal statements and walked into traffic, and reported delusions that her son had stabbed her in her intestines were hanging out. They also reported she had been noncompliant with oral psychotropic medications, and although her pillowcase turner assisted her to fill these on the day of discharge, she did not bring them into the hospital with her and says she does not know where they are. She has repeatedly demonstrated complete inability to provide for her own basic needs outside of the hospital, including health, welfare, halfway, food, and safety. Inpatient treatment is medically necessary due to the severity of her symptoms and risk for suicide if discharged. She is now on a 304 involuntary commitment, has been started on Invega Sustenna, and has been referred to the [facility] long-term inpatient treatment. Referral was made on 09/07/2019, received update on 10/12/2019 that patient is officially on the waitlist. Bed date of 11/09/2019 was provided to our team on 10/25/2019. Pt updated with this information. Patient isolative in her room but remains delusional with believes that she has a home in [place] she can return to, and therefore continues to be uncooperative with appropriate discharge planning and is not demonstrating ability to tolerate community re-entry. (1) Schizoaffective disorder, bipolar type: 09/03/19 -The patient has been admitted to the locked, secured behavioral health unit and has been placed in special observation room. She is also being monitored with close observations and every 15-minute direct observation. When more stable she will be actively encouraged to participate in individual, group, and activity therapies. We will also attempt to involve the family if the patient permits us to and if they agree. - Resuming medications as was rx'd at time of discharge on 08/29 including po I nvega, lithium, and Sustenna. 09/03 -continue current medications, patient is taking them. -File for 306 conversion hearing to be held 09/06/2019. She will likely need referral to the [facility] hospital due to the need for long-term inpatient treatment. -Reviewed FLP and FG from recent hospitalization 08/07/2019: Cholesterol 221, glucose 109, other values within normal limits. -Attempt to involve family is able; son-in-law Poli is petitioner and was involved in hospitalization so we will ask staff to contact him for collateral information and to determine the family's ability to assist with discharge planning and housing. She has very limited supports in the community and if they are unable to assist her with housing and care, she will likely require long-term hospitalization. -Continue private room for psychosis. 09/04 - Continue current medication regimen - patient has been compliant with medications in this structured environment - 306 conversion hearing scheduled for 09/05 - Meeting with pillowcase turner today to discuss treatment options and continue attempts to build rapport - Referral to [facility] is being recommended at this time has patient has repeatedly demonstrated an inability to care for self and provide for basic needs without the support of a structured psychiatric setting. - EKG (WNL). PPD was refused by patient - CXR ordered 09/05 -306 hearing held and patient converted to a 304 involuntary commitment. -Referred to [facility] for long-term inpatient treatment, as patient is severely ill and unable to provide for her own basic needs as a result of her mental illness, and treatment for 27 days on our acute unit was insufficient for successful transition to the community. She was at [facility] for 4 months within the past year, and did respond to treatment there, so returned to the [facility] hospital as recommended for long-term treatment of SPMI. -EKG and chest x-ray completed for state hospital referral. 09/06 - Continue current medication regimen - Referral to [facility] is being prepared, approval was reportedly received from the [facility] - Ongoing attempt to build rapport with psychiatric pillowcase turner 09/07 - 09/09 - Continue current medication regimen - Referral sent to [facility] on 09/07/2019 for recommended long- term psychiatric hospitalization based on chronic medication/treatment non- compliance and repeated demonstration of inability to care for self outside of a structured psychiatric setting. - Pt was informed of [facility] referral today during encounter 09/10 - Continue current medication regimen - [facility] referral sent on 09/07/2019 - requesting updates regarding when case is anticipated to be reviewed and ensure information was received - Pt continues to demand to leave, unable to appreciated the severity of her condition. Ongoing concern related to patient's repeated demonstration of inability to care for self outside of a structured psychiatric setting. 09/11 - Continue current medication regimen - Awaiting acceptance at [facility]. Ongoing concern related to patient's repeated demonstration of inability to care for self outside of a structured psychiatric setting. 09/12 - 09/14 - Pt due for next injection of Invega Sustenna 234mg IM on 09/16. Oral supplementation was continued from last hospitalization due to concern for ongoing instability with regard to psychotic symptoms. In preparation for first maintenance dose, will reduce oral supplementation to 3mg qAM and discontinue oral paliperidone on 09/16. Continue lithium 450mg BID unchanged. - Awaiting replay for [facility] regarding referral. Ongoing concern related to patient's repeated demonstration of inability to care for self outside of a structured psychiatric setting. Pt has consistently not been agreeable to diversion planning as a result of fixed delusional beliefs that she has family support, that she has a house to live in, and that she has a lot of money - none of these statements confirmed to be true. 09/15 -Continue treatment plan as previously prescribed 09/16 -now fully converted to invega sustenna. 09/17 - Continue current treatment plan 09/18 - 09/20 - Continue current treatment plan - Confirmed that information from patient's hospitalization at our facility was received by [facility], but case has not yet been reviewed. Still awaiting determination of acceptance status. 09/21 - continue current meds and tx plan. Reinstitute medically necessary private room as hx of aggression, labile mood, poor ability to keep contact precautions with COVID, hx homelessness higher risk category 09/22 - 09/23 - continue current meds and tx plan. 09/24 continue current meds and tx plan. MNPR for now as less paranoid and more visible on unit. 09/25 - Continue current treatment plan - patient remains irritable, paranoid, and delusional - Continue MNPR for paranoia and irritability 09/26 - Continue current treatment plan - Still awaiting response from [facility], 3 weeks after initially referral packet was sent - Pt did reportedly complete her Medical Assistance application. Consider repeat meeting with the county to discuss options for diversion planning; though these remain very limited - As review of patient's treatment plan has historically been very upsetting to the patient, discharge plans have not changed, and the therapeutic value of the review is limited - discussed with patient who did agree to review her treatment plan once a week unless there are changes in the interim. This was confirmed by multiple parties and can be reviewed with greater frequency at which time patient better tolerates the conversation and the therapeutic value is increased. 09/27 - 10/01 - Continue current treatment plan - Still awaiting response from [facility] - Pt is unwilling to consider alternative housing options - she maintains the delusion that she has a penthouse in [place] which has been confirmed to be untrue. 10/02 - Continue as above - medications renewed - Still awaiting response from [facility] - Pt maintains fixed delusions that are interfering significantly with patient's ability to adequately care for herself outside of a structured/supervised setting 10/03 - Continue current medication regimen - 30-day treatment review; treatment plan reviewed with patient who did become angry when length of stay was reviewed. Again became acutely agitated during conversation with provider today - Pt demonstrated very loud yelling, acute agitation, and inability to appropriately communicate frustration. These concerns, in addition to numerous failed attempts at discharge, continue to be evidence as to why patient is not appropriate to be discharged to the community. - Pt is not appropriate to go outside based on episodes of acute agitation and continued delusions which interfere with patient's ability to ensure appropriate behavior 10/04 - 10/05 - Continue current medication regimen - Pt remains inappropriate to go outside - Plan remains for transfer to the [facility] - no response regarding acceptance 10/06 - 10/07 -continue current plan. Amended court order to be obtained Wednesday and sent to the [facility] for acceptance and put patient on their wait list. 10/08 - 10/10 - continue current plan. Discharge plan continues to be placement at [facility] - Pt continues to be inappropriate to go outside based on continued demands for discharge, delusional thought content, and concerns for elopement risk if taken outside the hospital setting 10/11 - Continue current treatment plan - anticipated discharge to [facility] - Did review in detail expectations related to ability to go outside. Expectations were provided to patient, who initially verbalized understanding and repeated them back to this provider. Unfortunately, when expectations were reviewed right before attempt to go outside, patient escalated and demanded discharge and stated she was not going to the [facility]. Based on this behavior, it was deemed patient was not appropriate to go outside today. - Received amended court order to reflect updated 304 commitment to [facility] - following up to formally place patient on the waitlist 10/12 - Continue current medication regimen - pt due for next Invega Sustenna injection on 10/14 - Received confirmation that patient was formally placed on the waitlist at [facility], no available bed date at this time - Pt updated on status of [facility] referral, also updated that we were informed there is another Tunisian-speaking patient on the unit she will be admitted to and they have two Tunisian-speaking staff/interpreters on service. 10/13 - Continue current medication regimen - maintenance injection of Invega Sustenna due 10/14 - Awaiting bed date at [facility] 10/14 - Continue current treatment plan - Pt tolerated first maintenance injection of Invega Sustenna ordered for today - will be due again on 11/11 for next maintenance injection - Awaiting bed date and transfer to [facility] - Pt continues to be too delusional and agitated to tolerate a visit outside, will continue to assess 10/15 - 10/19 - Continue current treatment plan - Awaiting bed date and transfer to [facility] 10/20--reviewed. Continue current meds and treatment plan pending [facility] bed date. 10/21--reviewed. Continue current meds and treatment plan pending [facility] bed date. 10/22--reviewed. Continue current meds and treatment plan pending [facility] bed date. Will add PPI for presumed reflux/?hiatal hernia hx. Would need to go off unit for abdominal films and currently NAD. 10/23 - Continue current treatment plan. - Awaiting bed date and transfer to [facility] 10/24 - Continue current treatment plan - Received update that patient will be accepted to [facility] with a bed date of 11/09/2019. - Pt updated about discharge timeline and denied questions (2) Noncompliance with medication regimen: 09/02 - Unable to clarify if pt has been taking her medications regularly in the days since discharge. She at first indicated that she was not then indicated the medications arein a bag of hers but did not indicate actually taking them. The patient also claims to not recall the names of any of her medications and reports that she does not have the conditions for which her known medications are clearly intended. Possible cognitive impairments. might be impacting medication compliance. language impairments with pt not speaking Italian impacting compliance concerns. -The patient's underlying psychiatric condition will be actively treated. It is hoped that with treatment we will be able to improve medication compliance and also address aspects that impact compliance and improve this with appropriate interventions. CANTOR form of Invega to be continued at this time, next dose not due for another 2 weeks. Pt took meds this morning that were offered to her but given her extensive non compliance prior to, during and seeming after recent admission and lack of insight to her dx and presentation and indicating that recent hospitalization was quite helpful for her and her indicating wanting to continue her medications as was rx' at end of recent [facility] admission and were instructed to take at that discharge. I am in favor of medication over objection if pt objects to taking her medication during the course of this admission or if it is determined that pt is checking or not actually taking her medications. 10/16 - Pt has continued to tolerate Invega Sustenna maintenance injections. Last rec eived injection on 10/15/2019, due for next injections of 234mg IM on 11/11 (3) Homeless: 09/03/19 -In the past, the patient has lived with family members. However, this is clearly not an option at the present time. The context is that the patient reportedly was in [facility] for approximately a year because of her making terroristic threats against the family. While it does seem clear that the family wants to help protect her, they are unable to safely provide halfway. Given the patient's history of neglect of self-care, medication nonadherence, and possible cognitive deficits we are going to investigate structured residential programs as part of our discharge planning. 09/03 -patient has consistently refused assistance with housing, insisting that she has a house in [place], although has not been able to provide an address and her family states this is not true. 09/06 - Patient's grandson called unit yesterday to provide additional infor carmencitatimo, stating the patient has been homeless for quite some time and there is no valid address for the patient 09/29 pt remains delusional about having a home and is agitated if this is approached or challenged in anyway 09/30 did not discuss further today as this is a point of delusion and been shown to be refractory to challenging in anyway (4) Involuntary commitment: 09/03 -patient on a 304 IOC, readmitted on a 302. We will file for a 306 conversion hearing. 09/04 - 306 hearing scheduled for 09/05; anticipate referral to [facility]. 09/05 -306 conversion granted, now here on a 304 involuntary commitment. 09/07 - Referral packet sent to [facility] on 09/06 (5) Nicotine abuse: 09/02 - Nicotine Patch 7mg topical daily resumed, and smoking cessation to be done when pt is in more apposite mental state to do so Inventory Assets Strengths: concerned family members, pleasant on approach Needs: stable housing, improved compliance to medication and treatment plan. Risk Factors Assessment Male: No : No Do You Have Access To A Gun?: No Health Problems: No Mental Health Diagnoses: Yes Substance Use Disorders: No Previous Attempt: Yes (Per family, patient denies) Previous Psychiatric Hospitalization: Yes Hopelessness: No Smoker: Yes Protective Factors Assessment : No Responsible for Young Children: No Employed: No Stable Relationships: No Supportive Family: No Good Rapport with Provider: No Interval History Identifying Information ANDREW CYR is a 64-year-old F who currently is homeless in [facility], has a history of schizoaffective disorder, bipolar type, and was admitted on 09/03/19 05:42 on a 302 involuntary commitment for psychosis, suicidal ideation, inability to provide for basic needs, and medication noncompliance. Chief Complaint "Good." Review of Systems Notes Constitutional: denied Cardiovascular: denied Respiratory: denied Gastrointestinal: continues to be focused on previous abdominal pain, but denies GI complaints for the past 2 days Neurological: denied Psychiatric: denies symptoms other than stated above Total of at least 10 systems reviewed, pertinent positives as above and in HPI. Sleep Information Total Hours of Sleep: 5.75 Sleep Comments: andrew ate multi cereals with milk at 2315 then appeared to sleep until awakened for am vital signs. she is now eating more snacks of cereals with milk. Meal Information Percent Meal Consumed - Breakfast: 100 Percent Meal Consumed - Lunch: 100 Percent Meal Consumed - Dinner: 100 Nutrition Comment: documented from the pt. meal record Subjective Subjective Patient was seen & assessed and interval progress reviewed with treatment team. Staff report the patient continues to be somewhat isolative, but is pleasant when interacting with staff. We have received an update that the patient's anticipated bed date for transfer to the [facility] is 11/09/2019. Pt was seen today in combination with our Recreational Therapist to provide updates regarding her treatment plan and estimated length of stay. Tunisian-Italian conversation was conducted with assistance from [employer] interpretive service [employer] #[id number]. Pt states she is "good" today. Updated length of stay was provided to the patient to reflect discharge date to the [facility]. Pt appeared excited upon hearing this news, but simply responded with "very good." When patient was asked about her thoughts and emotions after hearing this news, the patient stated "It would be better if I could go home, but it is ok." Pt was offered to sign her treatment plan, which she did for the first time since her arrival. We continued to discuss her abdominal pain, which she states has been resolved for the past 2 days. Pt described the initial pain as "like having a baby" and stated "the pain made me scream, I was praying and everything like that." Pt initially denied continued abdominal pain and reports daily bowel movements without concern. She did report feeling as though she has "an octopus in my stomach." It is not clear from the context of the conversation if patient was using this as an analogy or if she truly believes there is an octopus in her abdomen. Pt did permit physical exam of her abdomen. She did report a firmness in her umbilical region which was noted by this provider. Pt denies pain or concerns since the initiation of pantoprazole stating "everything is better now." This provider recommended continued examinations and observation to determine if additional steps should be taken. She was encouraged to inform staff of any changes. Pt verbalized understanding and was agreeable with this. Physical Exam Psychiatric Orientation: alert and cooperative (superficially ) Apperance: appropriately dressed (casually, in leggings and t-shirt) and + disheveled Eye Contact: good eye contact Motor Behavior: steady gait and station and no abnormal motor movements Speech: normal rate/rhythm/volume of speech Affect: euthymic affect (appears excited after hearing about discharge timeline) Mood: no depressed mood ("Good") Thought Process: + concrete thought process Thought Content: + delusions and + persecution Hallucinations: ongoing observations of patient talking to herself in her room, occasionally yelling loudly - patient continues to deny hallucinations when asked directly Cognition: attention grossly intact and language grossly intact Insight: + impaired insight Judgement: + impaired judgement Vital Signs (Past 24 Hours) Last Vital Signs Temp 36.7 C 10/25/19 07:13 Pulse 82 10/25/19 07:14 Resp 16 10/25/19 07:13 BP 125/79 10/25/19 07:14 Pulse Ox 95 09/03/19 05:47 Gastrointestinal (Abdomen) Deep palpation: tenderness in umbilical region, not firm and no clearly defined mass palpated. When patient is asked to strain (requested to perform a sit-up), umbilical region is more firm and tenderness increases somewhat. No obvious evidence of herniation on inspection. Inspection/Auscultation: normal bowel sounds; no visible herniation and no visible pulsation Percussion/Palpation: + abdomen tender (reported strictly in umbilical region) and abdomen soft (in general); no guarding Results & Data ([facility]) Current Inpatient Medications Current Inpatient Medications: Current Inpatient Medications Acetaminophen (Tylenol) 650 mg PO Q4H PRN PRN Reason: Headache or Minor Fever Stop: 11/02/19 08:46 Last Admin: 10/22/19 18:54 Dose: 650 mg Documented by: Al Hydrox/Mg Hydrox/Simethicone (Maalox) 30 ml PO Q4H PRN PRN Reason: GI Upset Stop: 11/02/19 08:46 Bismuth Subsalicylate (Kaopectate) 15 ml PO PRN PRN PRN Reason: Loose Stool Stop: 11/02/19 08:46 Docusate Sodium (Colace) 100 mg PO BID CLARISA Stop: 11/02/19 20:59 Last Admin: 10/25/19 08:41 Dose: 100 mg Documented by: Haloperidol (Haldol) 5 mg PO Q6H PRN PRN Reason: Agitation/Psychosis Stop: 11/04/19 15:13 Last Admin: 10/19/19 18:27 Dose: 5 mg Documented by: Hydroxyzine HCl (Vistaril) 50 mg PO HSZ PRN PRN Reason: Insomnia Stop: 11/02/19 08:46 Hydroxyzine HCl (Vistaril) 25 mg PO Q4H PRN PRN Reason: Anxiety Stop: 11/02/19 08:46 Levothyroxine Sodium (Synthroid) 75 mcg PO DAILYBB CLARISA Stop: 11/02/19 07:59 Last Admin: 10/25/19 08:41 Dose: 75 mcg Documented by: [place] Carbonate (Eskalith) 450 mg PO BID [facility] Stop: 11/02/19 08:59 Last Admin: 10/25/19 08:41 Dose: 450 mg Documented by: Magnesium Hydroxide (Milk Of Magnesia) 30 ml PO DAILY PRN PRN Reason: Constipation Stop: 11/02/19 08:46 Paliperidone Palmitate (Invega Sustenna) 234 mg IM Q28D@0900 [facility] Stop: 11/14/19 10:59 Last Admin: 10/15/19 11:32 Dose: 234 mg Documented by: Pantoprazole Sodium (Protonix) 40 mg PO QAM [facility] Stop: 10/27/19 09:59 Last Admin: 10/25/19 08:41 Dose: 40 mg Documented by: Simvastatin (Zocor) 10 mg PO HS [facility] Stop: 11/02/19 21:59 Last Admin: 10/24/19 20:29 Dose: 10 mg Documented by: Sodium Chloride (Smarr Nasal) 1 - 2 sprays NA PRN PRN PRN Reason: Nasal Dryness/Congestion Stop: 11/02/19 08:46 Mental Health & Subst Abuse Tx Psychiatrist Name of Psychiatrist: . Psychiatrist's Phone Number: . Date of Appointment with Psychiatrist: 09/14/19 Time of Appointment with Psychiatrist: . Psychiatric Appointment Comment: . Therapist Name of Therapist: . Urban Design Consultant Name of Urban Design Consultant: [employer] - Lizzy Pandey Phone Number for Urban Design Consultant: [phone] Post Discharge Appointments Primary Care Physician Name Of Family Doctor: [facility] Primary Care Provider Appointment Comment: [id number], [address], [place] [address]
[2019-10-25] MEDS: SIMVASTATIN 10 MG TAB PO SCH (21:05)
[2019-10-26] MEDS: LITHIUM CARBONATE 450 MG TABCR PO SCH ×2 (07:54→20:59)
[2019-10-26] MEDS: DOCUSATE SODIUM 100 MG CAP PO SCH ×2 (07:54→20:59)
[2019-10-26] MEDS: PANTOprazole 40 MG TAB PO SCH (07:54)
[2019-10-26] MEDS: LEVOTHYROXINE SODIUM 75 MCG TABLET PO SCH (07:54)
--- NOTE | 2019-10-26 12:15 | Psychiatric Progress Note ---
Date of Service October 26, 2019 Impression / Recommendations Impression 63-year-old Malawian female with schizoaffective disorder bipolar type admitted on a 302 commitment 4 days after being discharged from this unit on 08/29 after a 27-day hospitalization. She was discharged on a 304 IOC, and returned to the ER later that same day, after police were called due to bizarre behavior at a local grocery store, and was again discharged. Readmitted several days later with psychotic symptoms including paranoia, delusions of persecution (that people were trying to poison/harm her), refusing to eat with hypokalemia, homelessness, delusions that she owns a home, and inability to provide for her own basic needs. Additionally, family members who petitioned reported she made suicidal statements and walked into traffic, and reported delusions that her son had stabbed her in her intestines were hanging out. They also reported she had been noncompliant with oral psychotropic medications, and although her case consultant assisted her to fill these on the day of discharge, she did not bring them into the hospital with her and says she does not know where they are. She has repeatedly demonstrated complete inability to provide for her own basic needs outside of the hospital, including health, welfare, snf, food, and safety. Inpatient treatment is medically necessary due to the severity of her symptoms and risk for suicide if discharged. She is now on a 304 involuntary commitment, has been started on Invega Sustenna, and has been referred to the [facility] long-term inpatient treatment. Referral was made on 09/07/2019, received update on 10/12/2019 that patient is officially on the waitlist. Bed date of 11/09/2019 was provided to our team on 10/25/2019. Pt updated with this information. Patient isolative in her room but remains delusional with believes that she has a home in [place] she can return to, and therefore continues to be uncooperative with appropriate discharge planning and is not demonstrating ability to tolerate community re-entry. (1) Schizoaffective disorder, bipolar type: 09/03/19 -The patient has been admitted to the locked, secured behavioral health unit and has been placed in special observation room. She is also being monitored with close observations and every 15-minute direct observation. When more stable she will be actively encouraged to participate in individual, group, and activity therapies. We will also attempt to involve the family if the patient permits us to and if they agree. - Resuming medications as was rx'd at time of discharge on 08/29 including po I nvega, lithium, and Sustenna. 09/03 -continue current medications, patient is taking them. -File for 306 conversion hearing to be held 09/06/2019. She will likely need referral to the [facility] due to the need for long-term inpatient treatment. -Reviewed FLP and FG from recent hospitalization 08/07/2019: Cholesterol 221, glucose 109, other values within normal limits. -Attempt to involve family is able; son-in-law Poli is petitioner and was involved in hospitalization so we will ask staff to contact him for collateral information and to determine the family's ability to assist with discharge planning and housing. She has very limited supports in the community and if they are unable to assist her with housing and care, she will likely require long-term hospitalization. -Continue private room for psychosis. 09/04 - Continue current medication regimen - patient has been compliant with medications in this structured environment - 306 conversion hearing scheduled for 09/05 - Meeting with case consultant today to discuss treatment options and continue attempts to build rapport - Referral to [facility] is being recommended at this time has patient has repeatedly demonstrated an inability to care for self and provide for basic needs without the support of a structured psychiatric setting. - EKG (WNL). PPD was refused by patient - CXR ordered 09/05 -306 hearing held and patient converted to a 304 involuntary commitment. -Referred to [facility] for long-term inpatient treatment, as patient is severely ill and unable to provide for her own basic needs as a result of her mental illness, and treatment for 27 days on our acute unit was insufficient for successful transition to the community. She was at [facility] for 4 months within the past year, and did respond to treatment there, so returned to the [facility] as recommended for long-term treatment of SPMI. -EKG and chest x-ray completed for state hospital referral. 09/06 - Continue current medication regimen - Referral to [facility] is being prepared, approval was reportedly received from the [facility] - Ongoing attempt to build rapport with psychiatric case consultant 09/07 - 09/09 - Continue current medication regimen - Referral sent to [facility] on 09/07/2019 for recommended long- term psychiatric hospitalization based on chronic medication/treatment non- compliance and repeated demonstration of inability to care for self outside of a structured psychiatric setting. - Pt was informed of [facility] referral today during encounter 09/10 - Continue current medication regimen - [facility] referral sent on 09/07/2019 - requesting updates regarding when case is anticipated to be reviewed and ensure information was received - Pt continues to demand to leave, unable to appreciated the severity of her condition. Ongoing concern related to patient's repeated demonstration of inability to care for self outside of a structured psychiatric setting. 09/11 - Continue current medication regimen - Awaiting acceptance at [facility]. Ongoing concern related to patient's repeated demonstration of inability to care for self outside of a structured psychiatric setting. 09/12 - 09/14 - Pt due for next injection of Invega Sustenna 234mg IM on 09/16. Oral supplementation was continued from last hospitalization due to concern for ongoing instability with regard to psychotic symptoms. In preparation for first maintenance dose, will reduce oral supplementation to 3mg qAM and discontinue oral paliperidone on 09/16. Continue lithium 450mg BID unchanged. - Awaiting replay for [facility] regarding referral. Ongoing concern related to patient's repeated demonstration of inability to care for self outside of a structured psychiatric setting. Pt has consistently not been agreeable to diversion planning as a result of fixed delusional beliefs that she has family support, that she has a house to live in, and that she has a lot of money - none of these statements confirmed to be true. 09/15 -Continue treatment plan as previously prescribed 09/16 -now fully converted to invega sustenna. 09/17 - Continue current treatment plan 09/18 - 09/20 - Continue current treatment plan - Confirmed that information from patient's hospitalization at our facility was received by [facility], but case has not yet been reviewed. Still awaiting determination of acceptance status. 09/21 - continue current meds and tx plan. Reinstitute medically necessary private room as hx of aggression, labile mood, poor ability to keep contact precautions with COVID, hx homelessness higher risk category 09/22 - 09/23 - continue current meds and tx plan. 09/24 continue current meds and tx plan. MNPR for now as less paranoid and more visible on unit. 09/25 - Continue current treatment plan - patient remains irritable, paranoid, and delusional - Continue MNPR for paranoia and irritability 09/26 - Continue current treatment plan - Still awaiting response from [facility], 3 weeks after initially referral packet was sent - Pt did reportedly complete her Medical Assistance application. Consider repeat meeting with the county to discuss options for diversion planning; though these remain very limited - As review of patient's treatment plan has historically been very upsetting to the patient, discharge plans have not changed, and the therapeutic value of the review is limited - discussed with patient who did agree to review her treatment plan once a week unless there are changes in the interim. This was confirmed by multiple parties and can be reviewed with greater frequency at which time patient better tolerates the conversation and the therapeutic value is increased. 09/27 - 10/01 - Continue current treatment plan - Still awaiting response from [facility] - Pt is unwilling to consider alternative housing options - she maintains the delusion that she has a penthouse in [place] which has been confirmed to be untrue. 10/02 - Continue as above - medications renewed - Still awaiting response from [facility] - Pt maintains fixed delusions that are interfering significantly with patient's ability to adequately care for herself outside of a structured/supervised setting 10/03 - Continue current medication regimen - 30-day treatment review; treatment plan reviewed with patient who did become angry when length of stay was reviewed. Again became acutely agitated during conversation with provider today - Pt demonstrated very loud yelling, acute agitation, and inability to appropriately communicate frustration. These concerns, in addition to numerous failed attempts at discharge, continue to be evidence as to why patient is not appropriate to be discharged to the community. - Pt is not appropriate to go outside based on episodes of acute agitation and continued delusions which interfere with patient's ability to ensure appropriate behavior 10/04 - 10/05 - Continue current medication regimen - Pt remains inappropriate to go outside - Plan remains for transfer to the [facility] - no response regarding acceptance 10/06 - 10/07 -continue current plan. Amended court order to be obtained Wednesday and sent to the [facility] for acceptance and put patient on their wait list. 10/08 - 10/10 - continue current plan. Discharge plan continues to be placement at [facility] - Pt continues to be inappropriate to go outside based on continued demands for discharge, delusional thought content, and concerns for elopement risk if taken outside the hospital setting 10/11 - Continue current treatment plan - anticipated discharge to [facility] - Did review in detail expectations related to ability to go outside. Expectations were provided to patient, who initially verbalized understanding and repeated them back to this provider. Unfortunately, when expectations were reviewed right before attempt to go outside, patient escalated and demanded discharge and stated she was not going to the [facility]. Based on this behavior, it was deemed patient was not appropriate to go outside today. - Received amended court order to reflect updated 304 commitment to [facility] - following up to formally place patient on the waitlist 10/12 - Continue current medication regimen - pt due for next Invega Sustenna injection on 10/14 - Received confirmation that patient was formally placed on the waitlist at [facility], no available bed date at this time - Pt updated on status of [facility] referral, also updated that we were informed there is another Slovak-speaking patient on the unit she will be admitted to and they have two Slovak-speaking staff/interpreters on service. 10/13 - Continue current medication regimen - maintenance injection of Invega Sustenna due 10/14 - Awaiting bed date at [facility] 10/14 - Continue current treatment plan - Pt tolerated first maintenance injection of Invega Sustenna ordered for today - will be due again on 11/11 for next maintenance injection - Awaiting bed date and transfer to [facility] - Pt continues to be too delusional and agitated to tolerate a visit outside, will continue to assess 10/15 - 10/19 - Continue current treatment plan - Awaiting bed date and transfer to [facility] 10/20--reviewed. Continue current meds and treatment plan pending [facility] bed date. 10/21--reviewed. Continue current meds and treatment plan pending [facility] bed date. 10/22--reviewed. Continue current meds and treatment plan pending [facility] bed date. Will add PPI for presumed reflux/?hiatal hernia hx. Would need to go off unit for abdominal films and currently NAD. 10/23 - Continue current treatment plan. - Awaiting bed date and transfer to [facility] 10/24 - Continue current treatment plan - Received update that patient will be accepted to [facility] with a bed date of 11/09/2019. - Pt updated about discharge timeline and denied questions 10/25 - Continue current treatment plan - Pt remains delusional - recently mentioning that she has an octopus in her stomach, placed there by a man who lives in [place] - Discharge to [facility] is anticipated for 11/09/2019 (2) Noncompliance with medication regimen: 09/02 - Unable to clarify if pt has been taking her medications regularly in the days since discharge. She at first indicated that she was not then indicated the medications arein a bag of hers but did not indicate actually taking them. The patient also claims to not recall the names of any of her medications and reports that she does not have the conditions for which her known medications are clearly intended. Possible cognitive impairments. might be impacting medication compliance. language impairments with pt not speaking Peruvian impacting compliance concerns. -The patient's underlying psychiatric condition will be actively treated. It is hoped that with treatment we will be able to improve medication compliance and also address aspects that impact compliance and improve this with appropriate interventions. CANTOR form of Invega to be continued at this time, next dose not due for another 2 weeks. Pt took meds this morning that were offered to her but given her extensive non compliance prior to, during and seeming after recent admission and lack of insight to her dx and presentation and indicating that recent hospitalization was quite helpful for her and her indicating wanting to continue her medications as was rx' at end of recent [facility] admission and were instructed to take at that discharge. I am in favor of medication over objection if pt objects to taking her medication during the course of this admission or if it is determined that pt is checking or not actually taking her medications. 10/16 - Pt has continued to tolerate Invega Sustenna maintenance injections. Last received injection on 10/15/2019, due for next injections of 234mg IM on 11/11 (3) Homeless: 09/03/19 -In the past, the patient has lived with family members. However, this is clearly not an option at the present time. The context is that the patient reportedly was in group home for approximately a year because of her making terroristic threats against the family. While it does seem clear that the family wants to help protect her, they are unable to safely provide snf. Given the patient's history of neglect of self-care, medication nonadherence, and possible cognitive deficits we are going to investigate structured residential programs as part of our discharge planning. 09/03 -patient has consistently refused assistance with housing, insisting that she has a house in [place], although has not been able to provide an address and her family states this is not true. 09/06 - Patient's grandson called unit yesterday to provide additional information, stating the patient has been homeless for quite some time and there is no valid address for the patient 09/29 pt remains delusional about having a home and is agitated if this is approached or challenged in anyway 09/30 did not discuss further today as this is a point of delusion and been shown to be refractory to challenging in anyway (4) Involuntary commitment: 09/03 -patient on a 304 IOC, readmitted on a 302. We will file for a 306 conversion hearing. 09/04 - 306 hearing scheduled for 09/05; anticipate referral to [facility]. 09/05 -306 conversion granted, now here on a 304 involuntary commitment. 09/07 - Referral packet sent to [facility] on 09/06 (5) Nicotine abuse: 09/02 - Nicotine Patch 7mg topical daily resumed, and smoking cessation to be done when pt is in more apposite mental state to do so Inventory Assets Strengths: concerned family members, pleasant on approach Needs: stable housing, improved compliance to medication and treatment plan. Risk Factors Assessment Male: No : No Do You Have Access To A Gun?: No Health Problems: No Mental Health Diagnoses: Yes Substance Use Disorders: No Previous Attempt: Yes (Per family, patient denies) Previous Psychiatric Hospitalization: Yes Hopelessness: No Smoker: Yes Protective Factors Assessment : No Responsible for Young Children: No Employed: No Stable Relationships: No Supportive Family: No Good Rapport with Provider: No Interval History Identifying Information ANDREW CYR is a 64-year-old F who currently is homeless in [place], has a history of schizoaffective disorder, bipolar type, and was admitted on 09/03/19 05:42 on a 302 involuntary commitment for psychosis, suicidal ideation, inability to provide for basic needs, and medication noncompliance. Chief Complaint "Good." Review of Systems Notes Constitutional: denied Cardiovascular: denied Respiratory: denied Gastrointestinal: denied; specifically denying abdominal pain today Neurological: denied Psychiatric: denies symptoms other than stated above Total of at least 10 systems reviewed, pertinent positives as above and in HPI. Sleep Information Total Hours of Sleep: 7.5 Sleep Comments: andrew ate multi cereals with milk at 2315 then appeared to sleep until awakened for am vital signs. she is now eating more snacks of cereals with milk. Meal Information Percent Meal Consumed - Breakfast: 100 Percent Meal Consumed - Lunch: 100 Percent Meal Consumed - Dinner: 100 Nutrition Comment: documented from the pt. meal record Subjective Subjective Patient was seen & assessed and interval progress reviewed with nursing and social work. Staff report the patient has continued to be cooperative, and has been in a brighter mood over the past few days. Pt was updated about estimated length of stay and discharge to [facility]. Pt attended most group programming so far this morning, which is positive but unusual. Pt was seen today to assess progress since admission. Slovak-Peruvian conversation was conducted with assistance from [employer] interpretive service - due to initial call getting disconnected, two interpreters were utilized: Mickey #[id number] and Kathy #[id number]. Pt states she is "good" today. We discussed the very sticky floors in her room. Pt states that she had mixed sugar water and spilled some on the floor. Pt denies any GI concerns presently. This provider referenced the patient's comment from yesterday, when she stated she believed there was an octopus in her stomach. Pt was asked more about this idea. Pt does confirm initially that "a man I cannot name" put an octopus in her stomach, and no matter how many times she tries to get rid of it, it keeps getting put back in. Pt was asked who had done this to her, she states "Arriaga, it's strange you don't know him. He lives in [place]. Everyone knows him. He put the octopus in my stomach and said he would remove it when the scar closed, but the scar is not closed." Pt states that when the octopus is in her stomach "I have pain like I'm having contractions." She has frequently reported this, but has also consistently denied abdominal pain or other GI complaints in the past several days. Pt denies other needs or concerns at this time. Physical Exam Psychiatric Orientation: alert and cooperative (superficially pleasant) Apperance: appropriately dressed, appropriately groomed and appeared stated age Eye Contact: good eye contact Motor Behavior: steady gait and station and no abnormal motor movements Speech: normal rate/rhythm/volume of speech Affect: euthymic affect (appearing brighter today) Mood: no depressed mood ("good") Thought Process: + perseveration (on abdominal pain and GI complaints); + thought process not linear or logical Thought Content: + delusions (reports belief that an octopus was inserted into her stomach) Cognition: attention grossly intact and language grossly intact Insight: + severely impaired insight Judgement: + severely impaired judgement Vital Signs (Past 24 Hours) Last Vital Signs Temp 36.5 C 10/26/19 07:12 Pulse 87 10/26/19 07:15 Resp 16 10/26/19 07:12 BP 120/77 10/26/19 07:15 Pulse Ox 95 09/03/19 05:47 Gastrointestinal (Abdomen) Inspection/Auscultation: normal bowel sounds; no visible herniation and no visible pulsation Percussion/Palpation: + abdomen tender (reported strictly in umbilical region, more mild today) and abdomen soft; no guarding Results & Data ([facility]) Current Inpatient Medications Current Inpatient Medications: Current Inpatient Medications Acetaminophen (Tylenol) 650 mg PO Q4H PRN PRN Reason: Headache or Minor Fever Stop: 11/02/19 08:46 Last Admin: 10/22/19 18:54 Dose: 650 mg Documented by: Al Hydrox/Mg Hydrox/Simethicone (Maalox) 30 ml PO Q4H PRN PRN Reason: GI Upset Stop: 11/02/19 08:46 Bismuth Subsalicylate (Kaopectate) 15 ml PO PRN PRN PRN Reason: Loose Stool Stop: 11/02/19 08:46 Docusate Sodium (Colace) 100 mg PO BID [facility] Stop: 11/02/19 20:59 Last Admin: 10/26/19 07:54 Dose: 100 mg Documented by: Haloperidol (Haldol) 5 mg PO Q6H PRN PRN Reason: Agitation/Psychosis Stop: 11/04/19 15:13 Last Admin: 10/19/19 18:27 Dose: 5 mg Documented by: Hydroxyzine HCl (Vistaril) 50 mg PO HSZ PRN PRN Reason: Insomnia Stop: 11/02/19 08:46 Hydroxyzine HCl (Vistaril) 25 mg PO Q4H PRN PRN Reason: Anxiety Stop: 11/02/19 08:46 Levothyroxine Sodium (Synthroid) 75 mcg PO DAILYBB [facility] Stop: 11/02/19 07:59 Last Admin: 10/26/19 07:54 Dose: 75 mcg Documented by: [place] Carbonate (Eskalith) 450 mg PO BID [facility] Stop: 11/02/19 08:59 Last Admin: 10/26/19 07:54 Dose: 450 mg Documented by: Magnesium Hydroxide (Milk Of Magnesia) 30 ml PO DAILY PRN PRN Reason: Constipation Stop: 11/02/19 08:46 Paliperidone Palmitate (Invega Sustenna) 234 mg IM Q28D@0900 [facility] Stop: 11/14/19 10:59 Last Admin: 10/15/19 11:32 Dose: 234 mg Documented by: Pantoprazole Sodium (Protonix) 40 mg PO QAM [facility] Stop: 10/27/19 09:59 Last Admin: 10/26/19 07:54 Dose: 40 mg Documented by: Simvastatin (Zocor) 10 mg PO HS [facility] Stop: 11/02/19 21:59 Last Admin: 10/25/19 21:05 Dose: 10 mg Documented by: Sodium Chloride ([place] Nasal) 1 - 2 sprays NA PRN PRN PRN Reason: Nasal Dryness/Congestion Stop: 11/02/19 08:46 Mental Health & Subst Abuse Tx Psychiatrist Name of Psychiatrist: . Psychiatrist's Phone Number: . Date of Appointment with Psychiatrist: 09/14/19 Time of Appointment with Psychiatrist: . Psychiatric Appointment Comment: . Therapist Name of Therapist: . Requisition Approver Name of Requisition Approver: [facility] Lizzy Pandey Phone Number for Requisition Approver: [phone] Post Discharge Appointments Primary Care Physician Name Of Family Doctor: [facility] Primary Care Provider Appointment Comment: [id number], [address], [place] [address]
[2019-10-26] MEDS: SIMVASTATIN 10 MG TAB PO SCH (20:59)
[2019-10-27] MEDS: LEVOTHYROXINE SODIUM 75 MCG TABLET PO SCH (08:28)
[2019-10-27] MEDS: DOCUSATE SODIUM 100 MG CAP PO SCH ×2 (08:43→20:34)
[2019-10-27] MEDS: PANTOprazole 40 MG TAB PO SCH (08:43)
[2019-10-27] MEDS: LITHIUM CARBONATE 450 MG TABCR PO SCH ×2 (08:43→20:34)
--- NOTE | 2019-10-27 10:33 | Psychiatric Progress Note ---
Date of Service October 27, 2019 Impression / Recommendations Impression 63-year-old [place] female with schizoaffective disorder bipolar type admitted on a 302 commitment 4 days after being discharged from this unit on 08/29 after a 27-day hospitalization. She was discharged on a 304 IOC, and returned to the ER later that same day, after police were called due to bizarre behavior at a local grocery store, and was again discharged. Readmitted several days later with psychotic symptoms including paranoia, delusions of persecution (that people were trying to poison/harm her), refusing to eat with hypokalemia, homelessness, delusions that she owns a home, and inability to provide for her own basic needs. Additionally, family members who petitioned reported she made suicidal statements and walked into traffic, and reported delusions that her son had stabbed her in her intestines were hanging out. They also reported she had been noncompliant with oral psychotropic medications, and although her major case detective assisted her to fill these on the day of discharge, she did not bring them into the hospital with her and says she does not know where they are. She has repeatedly demonstrated complete inability to provide for her own basic needs outside of the hospital, including health, welfare, [place] [facility], food, and safety. Inpatient treatment is medically necessary due to the severity of her symptoms and risk for suicide if discharged. She is now on a 304 involuntary commitment, has been started on Invega Sustenna, and has been referred to the [facility] long-term inpatient treatment. Referral was made on 09/07/2019, received update on 10/12/2019 that patient is officially on the waitlist. Bed date of 11/09/2019 was provided to our team on 10/25/2019. Pt updated with this information. Patient isolative in her room but remains delusional with believes that she has a home in [place] she can return to, and therefore continues to be uncooperative with appropriate discharge planning and is not demonstrating ability to tolerate community re-entry. (1) Schizoaffective disorder, bipolar type: 09/03/19 -The patient has been admitted to the locked, secured behavioral health unit and has been placed in special observation room. She is also being monitored with close observations and every 15-minute direct observation. When more stable she will be actively encouraged to participate in individual, group, and activity therapies. We will also attempt to involve the family if the patient permits us to and if they agree. - Resuming medications as was rx'd at time of discharge on 08/29 including po I nvega, lithium, and Sustenna. 09/03 -continue current medications, patient is taking them. -File for 306 conversion hearing to be held 09/06/2019. She will likely need referral to the [facility] due to the need for long-term inpatient treatment. -Reviewed FLP and FG from recent hospitalization 08/07/2019: Cholesterol 221, glucose 109, other values within normal limits. -Attempt to involve family is able; son-in-law Poli is petitioner and was involved in hospitalization so we will ask staff to contact him for collateral information and to determine the family's ability to assist with discharge planning and housing. She has very limited supports in the community and if they are unable to assist her with housing and care, she will likely require long-term hospitalization. -Continue private room for psychosis. 09/04 - Continue current medication regimen - patient has been compliant with medications in this structured environment - 306 conversion hearing scheduled for 09/05 - Meeting with major case detective today to discuss treatment options and continue attempts to build rapport - Referral to [facility] is being recommended at this time has patient has repeatedly demonstrated an inability to care for self and provide for basic needs without the support of a structured psychiatric setting. - EKG (WNL). PPD was refused by patient - CXR ordered 09/05 -306 hearing held and patient converted to a 304 involuntary commitment. -Referred to [facility] for long-term inpatient treatment, as patient is severely ill and unable to provide for her own basic needs as a result of her mental illness, and treatment for 27 days on our acute unit was insufficient for successful transition to the community. She was at [facility] for 4 months within the past year, and did respond to treatment there, so returned to the [facility] as recommended for long-term treatment of SPMI. -EKG and chest x-ray completed for state hospital referral. 09/06 - Continue current medication regimen - Referral to [facility] is being prepared, approval was reportedly received from the [facility] - Ongoing attempt to build rapport with psychiatric major case detective 09/07 - 09/09 - Continue current medication regimen - Referral sent to [facility] on 09/07/2019 for recommended long- term psychiatric hospitalization based on chronic medication/treatment non- compliance and repeated demonstration of inability to care for self outside of a structured psychiatric setting. - Pt was informed of [facility] referral today during encounter 09/10 - Continue current medication regimen - [facility] referral sent on 09/07/2019 - requesting updates regarding when case is anticipated to be reviewed and ensure information was received - Pt continues to demand to leave, unable to appreciated the severity of her condition. Ongoing concern related to patient's repeated demonstration of inability to care for self outside of a structured psychiatric setting. 09/11 - Continue current medication regimen - Awaiting acceptance at [facility]. Ongoing concern related to patient's repeated demonstration of inability to care for self outside of a structured psychiatric setting. 09/12 - 09/14 - Pt due for next injection of Invega Sustenna 234mg IM on 09/16. Oral supplementation was continued from last hospitalization due to concern for ongoing instability with regard to psychotic symptoms. In preparation for first maintenance dose, will reduce oral supplementation to 3mg qAM and discontinue oral paliperidone on 09/16. Continue lithium 450mg BID unchanged. - Awaiting replay for [facility] regarding referral. Ongoing concern related to patient's repeated demonstration of inability to care for self outside of a structured psychiatric setting. Pt has consistently not been agreeable to diversion planning as a result of fixed delusional beliefs that she has family support, that she has a house to live in, and that she has a lot of money - none of these statements confirmed to be true. 09/15 -Continue treatment plan as previously prescribed 09/16 -now fully converted to invega sustenna. 09/17 - Continue current treatment plan 09/18 - 09/20 - Continue current treatment plan - Confirmed that information from patient's hospitalization at our facility was received by [facility], but case has not yet been reviewed. Still awaiting determination of acceptance status. 09/21 - continue current meds and tx plan. Reinstitute medically necessary private room as hx of aggression, labile mood, poor ability to keep contact precautions with COVID, hx homelessness higher risk category 09/22 - 09/23 - continue current meds and tx plan. 09/24 continue current meds and tx plan. MNPR for now as less paranoid and more visible on unit. 09/25 - Continue current treatment plan - patient remains irritable, paranoid, and delusional - Continue MNPR for paranoia and irritability 09/26 - Continue current treatment plan - Still awaiting response from [facility], 3 weeks after initially referral packet was sent - Pt did reportedly complete her Medical Assistance application. Consider repeat meeting with the county to discuss options for diversion planning; though these remain very limited - As review of patient's treatment plan has historically been very upsetting to the patient, discharge plans have not changed, and the therapeutic value of the review is limited - discussed with patient who did agree to review her treatment plan once a week unless there are changes in the interim. This was confirmed by multiple parties and can be reviewed with greater frequency at which time patient better tolerates the conversation and the therapeutic value is increased. 09/27 - 10/01 - Continue current treatment plan - Still awaiting response from [facility] - Pt is unwilling to consider alternative housing options - she maintains the delusion that she has a penthouse in [place] which has been confirmed to be untrue. 10/02 - Continue as above - medications renewed - Still awaiting response from [facility] - Pt maintains fixed delusions that are interfering significantly with patient's ability to adequately care for herself outside of a structured/supervised setting 10/03 - Continue current medication regimen - 30-day treatment review; treatment plan reviewed with patient who did become angry when length of stay was reviewed. Again became acutely agitated during conversation with provider today - Pt demonstrated very loud yelling, acute agitation, and inability to appropriately communicate frustration. These concerns, in addition to numerous failed attempts at discharge, continue to be evidence as to why patient is not appropriate to be discharged to the community. - Pt is not appropriate to go outside based on episodes of acute agitation and continued delusions which interfere with patient's ability to ensure appropriate behavior 10/04 - 10/05 - Continue current medication regimen - Pt remains inappropriate to go outside - Plan remains for transfer to the [facility] - no response regarding acceptance 10/06 - 10/07 -continue current plan. Amended court order to be obtained Wednesday and sent to the [facility] for acceptance and put patient on their wait list. 10/08 - 10/10 - continue current plan. Discharge plan continues to be placement at [facility] - Pt continues to be inappropriate to go outside based on continued demands for discharge, delusional thought content, and concerns for elopement risk if taken outside the hospital setting 10/11 - Continue current treatment plan - anticipated discharge to [facility] - Did review in detail expectations related to ability to go outside. Expectations were provided to patient, who initially verbalized understanding and repeated them back to this provider. Unfortunately, when expectations were reviewed right before attempt to go outside, patient escalated and demanded discharge and stated she was not going to the [facility]. Based on this behavior, it was deemed patient was not appropriate to go outside today. - Received amended court order to reflect updated 304 commitment to [facility] - following up to formally place patient on the waitlist 10/12 - Continue current medication regimen - pt due for next Invega Sustenna injection on 10/14 - Received confirmation that patient was formally placed on the waitlist at [facility], no available bed date at this time - Pt updated on status of [facility] referral, also updated that we were informed there is another Kosovan-speaking patient on the unit she will be admitted to and they have two Kosovan-speaking staff/interpreters on service. 10/13 - Continue current medication regimen - maintenance injection of Invega Sustenna due 10/14 - Awaiting bed date at [facility] 10/14 - Continue current treatment plan - Pt tolerated first maintenance injection of Invega Sustenna ordered for today - will be due again on 11/11 for next maintenance injection - Awaiting bed date and transfer to [facility] - Pt continues to be too delusional and agitated to tolerate a visit outside, will continue to assess 10/15 - 10/19 - Continue current treatment plan - Awaiting bed date and transfer to [facility] 10/20--reviewed. Continue current meds and treatment plan pending [facility] bed date. 10/21--reviewed. Continue current meds and treatment plan pending [facility] bed date. 10/22--reviewed. Continue current meds and treatment plan pending [facility] bed date. Will add PPI for presumed reflux/?hiatal hernia hx. Would need to go off unit for abdominal films and currently NAD. 10/23 - Continue current treatment plan. - Awaiting bed date and transfer to [facility] 10/24 - Continue current treatment plan - Received update that patient will be accepted to [facility] with a bed date of 11/09/2019. - Pt updated about discharge timeline and denied questions 10/25 - Continue current treatment plan - Pt remains delusional - recently mentioning that she has an octopus in her stomach, placed there by a man who lives in [place] - Discharge to [facility] is anticipated for 11/09/201910/26 - Continue current treatment plan - Discharge to [facility] is anticipated for 11/09/2019 (2) Noncompliance with medication regimen: 09/02 - Unable to clarify if pt has been taking her medications regularly in the days since discharge. She at first indicated that she was not then indicated the medications arein a bag of hers but did not indicate actually taking them. The patient also claims to not recall the names of any of her medications and reports that she does not have the conditions for which her known medications are clearly intended. Possible cognitive impairments. might be impacting medication compliance. language impairments with pt not speaking Lithuanian impacting compliance concerns. -The patient's underlying psychiatric condition will be actively treated. It is hoped that with treatment we will be able to improve medication compliance and also address aspects that impact compliance and improve this with appropriate interventions. CANTOR form of Invega to be continued at this time, next dose not due for another 2 weeks. Pt took meds this morning that were offered to her but given her extensive non compliance prior to, during and seeming after recent admission and lack of insight to her dx and presentation and indicating that recent hospitalization was quite helpful for her and her indicating wanting to continue her medications as was rx' at end of recent [facility] admission and were instructed to take at that discharge. I am in favor of medication over objection if pt objects to taking her medication during the course of this admission or if it is determined that pt is checking or not actually taking her medications. 10/16 - Pt has continued to tolerate Invega Sustenna maintenance injections. Last received injection on 10/15/2019, due for next injections of 234mg IM on 11/11 (3) Homeless: 09/03/19 -In the past, the patient has lived with family members. However, this is clearly not an option at the present time. The context is that the patient reportedly was in correction for approximately a year because of her making terroristic threats against the family. While it does seem clear that the family wants to help protect her, they are unable to safely provide [place] [facility]. Given the patient's history of neglect of self-care, medication nonadherence, and possible cognitive deficits we are going to investigate structured residential programs as part of our discharge planning. 09/03 -patient has consistently refused assistance with housing, insisting that she has a house in [place], although has not been able to provide an address and her family states this is not true. 09/06 - Patient's grandson called unit yesterday to provide additional information, stating the patient has been homeless for quite some time and there is no valid address for the patient 09/29 pt remains delusional about having a home and is agitated if this is approached or challenged in anyway 09/30 did not discuss further today as this is a point of delusion and been shown to be refractory to challenging in anyway (4) Involuntary commitment: 09/03 -patient on a 304 IOC, readmitted on a 302. We will file for a 306 conversion hearing. 09/04 - 306 hearing scheduled for 09/05; anticipate referral to [facility]. 09/05 -306 conversion granted, now here on a 304 involuntary commitment. 09/07 - Referral packet sent to [facility] on 09/06 (5) Nicotine abuse: 09/02 - Nicotine Patch 7mg topical daily resumed, and smoking cessation to be done when pt is in more apposite mental state to do so Inventory Assets Strengths: concerned family members, pleasant on approach Needs: stable housing, improved compliance to medication and treatment plan. Risk Factors Assessment Male: No : No Do You Have Access To A Gun?: No Health Problems: No Mental Health Diagnoses: Yes Substance Use Disorders: No Previous Attempt: Yes (Per family, patient denies) Previous Psychiatric Hospitalization: Yes Hopelessness: No Smoker: Yes Protective Factors Assessment : No Responsible for Young Children: No Employed: No Stable Relationships: No Supportive Family: No Good Rapport with Provider: No Interval History Identifying Information ANDREW CYR is a 64-year-old F who currently is homeless in [place] area, has a history of schizoaffective disorder, bipolar type, and was admitted on 09/03/19 05:42 on a 302 involuntary commitment for psychosis, suicidal ideation, inability to provide for basic needs, and medication noncompliance. Chief Complaint "Good. Thank you." Review of Systems Notes Constitutional: denied Cardiovascular: denied Respiratory: denied Gastrointestinal: denied Neurological: denied Psychiatric: denies symptoms other than stated above Total of at least 10 systems reviewed, pertinent positives as above and in HPI. Sleep Information Total Hours of Sleep: 6 Sleep Comments: ate snacks at 0145-awake for a little while after then back to sleep. Meal Information Percent Meal Consumed - Breakfast: 100 Percent Meal Consumed - Lunch: 100 Percent Meal Consumed - Dinner: 100 Nutrition Comment: documented from the pt. meal record Subjective Subjective Patient was seen & assessed and interval progress reviewed with treatment team. Staff report the patient has been superficially cooperative and pleasant. Surprisingly, she has been attending some of the superficial group programming and contributing appropriately. Discharge to [facility] is anticipated on 11/09/2019. Kosovan-Lithuanian conversation was conducted with assistance from [employer] interpretive service [id number]. Pt states she is "good. Thank you." Pt denies physical concerns, and specifically is denying any GI complaints presently. Pt states her mood is "good, like a 9 from 1 to 10. Yesterday was an 8." Pt denies SI/HI, SIB, and hallucinations at this time (though staff continue to observe patient responding to internal stimuli when in her room alone). This provider updated the patient on her anticipated discharge date and wrote it on the Kosovan calendar she was provided. Pt stated only " Perfect. Good." Pt continues to appropriately converse with staff, as staff requests to learn phrases in Kosovan and patient requests Lithuanian words. She denied other needs or concerns today. Physical Exam Psychiatric Orientation: alert and cooperative (superficially) Apperance: appropriately dressed (casually, in t-shirt and leggings - patient later changed into a dress), appropriately groomed and appeared stated age Eye Contact: good eye contact Motor Behavior: steady gait and station and no abnormal motor movements Speech: normal rate/rhythm/volume of speech Affect: euthymic affect Mood: no depressed mood ("Good") Thought Process: goal directed thought process and + concrete thought process Thought Content: + paranoid, + delusions and + persecution Ongoing underlying delusions and paranoia. She participates appropriately in superficial conversation today. Suicidal Thoughts: denies suicidal thoughts Homicidal Thoughts: denies homicidal thoughts Hallucinations: no auditory hallucinations and no visual hallucinations Ongoing observations of patient's speaking to herself when in her room alone. Cognition: attention grossly intact and language grossly intact Insight: + impaired insight Judgement: + impaired judgement Vital Signs (Past 24 Hours) Last Vital Signs Temp 36.8 C 10/27/19 07:03 Pulse 70 10/27/19 07:03 Resp 20 10/27/19 07:03 BP 133/77 10/27/19 07:03 Pulse Ox 95 09/03/19 05:47 Results & Data ([facility]) Current Inpatient Medications Current Inpatient Medications: Current Inpatient Medications Acetaminophen (Tylenol) 650 mg PO Q4H PRN PRN Reason: Headache or Minor Fever Stop: 11/02/19 08:46 Last Admin: 10/22/19 18:54 Dose: 650 mg Documented by: Al Hydrox/Mg Hydrox/Simethicone (Maalox) 30 ml PO Q4H PRN PRN Reason: GI Upset Stop: 11/02/19 08:46 Bismuth Subsalicylate (Kaopectate) 15 ml PO PRN PRN PRN Reason: Loose Stool Stop: 11/02/19 08:46 Docusate Sodium (Colace) 100 mg PO BID [facility] Stop: 11/02/19 20:59 Last Admin: 10/27/19 08:43 Dose: 100 mg Documented by: Haloperidol (Haldol) 5 mg PO Q6H PRN PRN Reason: Agitation/Psychosis Stop: 11/04/19 15:13 Last Admin: 10/19/19 18:27 Dose: 5 mg Documented by: Hydroxyzine HCl (Vistaril) 50 mg PO HSZ PRN PRN Reason: Insomnia Stop: 11/02/19 08:46 Hydroxyzine HCl (Vistaril) 25 mg PO Q4H PRN PRN Reason: Anxiety Stop: 11/02/19 08:46 Levothyroxine Sodium (Synthroid) 75 mcg PO DAILYBB [facility] Stop: 11/02/19 07:59 Last Admin: 10/27/19 08:28 Dose: 75 mcg Documented by: [place] Carbonate (Eskalith) 450 mg PO BID [facility] Stop: 11/02/19 08:59 Last Admin: 10/27/19 08:43 Dose: 450 mg Documented by: Magnesium Hydroxide (Milk Of Magnesia) 30 ml PO DAILY PRN PRN Reason: Constipation Stop: 11/02/19 08:46 Paliperidone Palmitate (Invega Sustenna) 234 mg IM Q28D@0900 [facility] Stop: 11/14/19 10:59 Last Admin: 10/15/19 11:32 Dose: 234 mg Documented by: Simvastatin (Zocor) 10 mg PO HS [facility] Stop: 11/02/19 21:59 Last Admin: 10/26/19 20:59 Dose: 10 mg Documented by: Sodium Chloride ([place] Nasal) 1 - 2 sprays NA PRN PRN PRN Reason: Nasal Dryness/Congestion Stop: 11/02/19 08:46 Mental Health & Subst Abuse Tx Psychiatrist Name of Psychiatrist: . Psychiatrist's Phone Number: . Date of Appointment with Psychiatrist: 09/14/19 Time of Appointment with Psychiatrist: . Psychiatric Appointment Comment: . Therapist Name of Therapist: . Asphalt Paving Foreman Name of Asphalt Paving Foreman: [employer] [facility] - Lizzy Pandey Phone Number for Asphalt Paving Foreman: [phone] Post Discharge Appointments Primary Care Physician Name Of Family Doctor: [facility] Primary Care Provider Appointment Comment: [id number], [place] [address]
[2019-10-27] MEDS: SIMVASTATIN 10 MG TAB PO SCH (20:34)
[2019-10-28] MEDS: LEVOTHYROXINE SODIUM 75 MCG TABLET PO SCH (09:30)
[2019-10-28] MEDS: LITHIUM CARBONATE 450 MG TABCR PO SCH ×2 (09:30→21:08)
[2019-10-28] MEDS: DOCUSATE SODIUM 100 MG CAP PO SCH ×2 (09:30→21:08)
--- NOTE | 2019-10-28 14:23 | Psychiatric Progress Note ---
Date of Service October 28, 2019 Impression / Recommendations Impression 63-year-old [place] female with schizoaffective disorder bipolar type admitted on a 302 commitment 4 days after being discharged from this unit on 08/29 after a 27-day hospitalization. She was discharged on a 304 IOC, and returned to the ER later that same day, after police were called due to bizarre behavior at a local grocery store, and was again discharged. Readmitted several days later with psychotic symptoms including paranoia, delusions of persecution (that people were trying to poison/harm her), refusing to eat with hypokalemia, homelessness, delusions that she owns a home, and inability to provide for her own basic needs. Additionally, family members who petitioned reported she made suicidal statements and walked into traffic, and reported delusions that her son had stabbed her in her intestines were hanging out. They also reported she had been noncompliant with oral psychotropic medications, and although her case fitter assisted her to fill these on the day of discharge, she did not bring them into the hospital with her and says she does not know where they are. She has repeatedly demonstrated complete inability to provide for her own basic needs outside of the hospital, including health, welfare, assisted, food, and safety. Inpatient treatment is medically necessary due to the severity of her symptoms and risk for suicide if discharged. She is now on a 304 involuntary commitment, has been started on Invega Sustenna, and has been referred to the [facility] long-term inpatient treatment. Referral was made on 09/07/2019, received update on 10/12/2019 that patient is officially on the waitlist. Bed date of 11/09/2019 was provided to our team on 10/25/2019. Pt updated with this information. Patient isolative in her room but remains delusional with believes that she has a home in [place] she can return to, and therefore continues to be uncooperative with appropriate discharge planning and is not demonstrating ability to tolerate community re-entry. Pt repressing actual discharge plans and converting them in her delusional thinking to her preferred discharge plan (1) Schizoaffective disorder, bipolar type: 09/03/19 -The patient has been admitted to the locked, secured behavioral health unit and has been placed in special observation room. She is also being monitored with close observations and every 15-minute direct observation. When more stable she will be actively encouraged to participate in individual, group, and activity therapies. We will also attempt to involve the family if the patient permits us to and if they agree. - Resuming medications as was rx'd at time of discharge on 08/29 including po Invega, lithium, and Sustenna. 09/03 -continue current medications, patient is taking them. -File for 306 conversion hearing to be held 09/06/2019. She will likely need referral to the [facility] hospital due to the need for long-term inpatient treatment. -Reviewed FLP and FG from recent hospitalization 08/07/2019: Cholesterol 221, glucose 109, other values within normal limits. -Attempt to involve family is able; son-in-law Poli is petitioner and was involved in hospitalization so we will ask staff to contact him for collateral information and to determine the family's ability to assist with discharge planning and housing. She has very limited supports in the community and if they are unable to assist her with housing and care, she will likely require long-term hospitalization. -Continue private room for psychosis. 09/04 - Continue current medication regimen - patient has been compliant with medications in this structured environment - 306 conversion hearing scheduled for 09/05 - Meeting with case fitter today to discuss treatment options and continue attempts to build rapport - Referral to [facility] is being recommended at this time has patient has repeatedly demonstrated an inability to care for self and provide for basic needs without the support of a structured psychiatric setting. - EKG (WNL). PPD was refused by patient - CXR ordered 09/05 -306 hearing held and patient converted to a 304 involuntary commitment. -Referred to [facility] for long-term inpatient treatment, as patient is severely ill and unable to provide for her own basic needs as a result of her mental illness, and treatment for 27 days on our acute unit was insufficient for successful transition to the community. She was at [facility] for 4 months within the past year, and did respond to treatment there, so returned to the [facility] hospital as recommended for long-term treatment of SPMI. -EKG and chest x-ray completed for [facility] hospital referral. 09/06 - Continue current medication regimen - Referral to [facility] is being prepared, approval was reportedly received from the county - Ongoing attempt to build rapport with psychiatric case fitter 09/07 - 09/09 - Continue current medication regimen - Referral sent to [facility] on 09/07/2019 for recommended long- term psychiatric hospitalization based on chronic medication/treatment non- compliance and repeated demonstration of inability to care for self outside of a structured psychiatric setting. - Pt was informed of [facility] referral today during encounter 09/10 - Continue current medication regimen - [facility] referral sent on 09/07/2019 - requesting updates regarding when case is anticipated to be reviewed and ensure information was received - Pt continues to demand to leave, unable to appreciated the severity of her condition. Ongoing concern related to patient's repeated demonstration of inability to care for self outside of a structured psychiatric setting. 09/11 - Continue current medication regimen - Awaiting acceptance at [facility]. Ongoing concern related to patient's repeated demonstration of inability to care for self outside of a structured psychiatric setting. 09/12 - 09/14 - Pt due for next injection of Invega Sustenna 234mg IM on 09/16. Oral supplementation was continued from last hospitalization due to concern for ongoing instability with regard to psychotic symptoms. In preparation for first maintenance dose, will reduce oral supplementation to 3mg qAM and discontinue oral paliperidone on 09/16. Continue lithium 450mg BID unchanged. - Awaiting replay for [facility] regarding referral. Ongoing concern related to patient's repeated demonstration of inability to care for self outside of a structured psychiatric setting. Pt has consistently not been agreeable to diversion planning as a result of fixed delusional beliefs that she has family support, that she has a house to live in, and that she has a lot of money - none of these statements confirmed to be true. 09/15 -Continue treatment plan as previously prescribed 09/16 -now fully converted to invega sustenna. 09/17 - Continue current treatment plan 09/18 - 09/20 - Continue current treatment plan - Confirmed that information from patient's hospitalization at our facility was received by [facility], but case has not yet been reviewed. Still awaiting determination of acceptance status. 09/21 - continue current meds and tx plan. Reinstitute medically necessary private room as hx of aggression, labile mood, poor ability to keep contact precautions with COVID, hx homelessness higher risk category 09/22 - 09/23 - continue current meds and tx plan. 09/24 continue current meds and tx plan. MNPR for now as less paranoid and more visible on unit. 09/25 - Continue current treatment plan - patient remains irritable, paranoid, and delusional - Continue MNPR for paranoia and irritability 09/26 - Continue current treatment plan - Still awaiting response from [facility], 3 weeks after initially referral packet was sent - Pt did reportedly complete her Medical Assistance application. Consider repeat meeting with the county to discuss options for diversion planning; though these remain very limited - As review of patient's treatment plan has historically been very upsetting to the patient, discharge plans have not changed, and the therapeutic value of the review is limited - discussed with patient who did agree to review her treatment plan once a week unless there are changes in the interim. This was confirmed by multiple parties and can be reviewed with greater frequency at which time patient better tolerates the conversation and the therapeutic value is increased. 09/27 - 10/01 - Continue current treatment plan - Still awaiting response from [facility] - Pt is unwilling to consider alternative housing options - she maintains the delusion that she has a penthouse in [place] which has been confirmed to be untrue. 10/02 - Continue as above - medications renewed - Still awaiting response from [facility] - Pt maintains fixed delusions that are interfering significantly with patient's ability to adequately care for herself outside of a structured/supervised setting 10/03 - Continue current medication regimen - 30-day treatment review; treatment plan reviewed with patient who did become angry when length of stay was reviewed. Again became acutely agitated during conversation with provider today - Pt demonstrated very loud yelling, acute agitation, and inability to appropriately communicate frustration. These concerns, in addition to numerous failed attempts at discharge, continue to be evidence as to why patient is not appropriate to be discharged to the community. - Pt is not appropriate to go outside based on episodes of acute agitation and continued delusions which interfere with patient's ability to ensure appropriate behavior 10/04 - 10/05 - Continue current medication regimen - Pt remains inappropriate to go outside - Plan remains for transfer to the [facility] - no response regarding acceptance 10/06 - 10/07 -continue current plan. Amended court order to be obtained Wednesday and sent to the [facility] for acceptance and put patient on their wait list. 10/08 - 10/10 - continue current plan. Discharge plan continues to be placement at [facility] - Pt continues to be inappropriate to go outside based on continued demands for discharge, delusional thought content, and concerns for elopement risk if taken outside the hospital setting 10/11 - Continue current treatment plan - anticipated discharge to [facility] - Did review in detail expectations related to ability to go outside. Expectations were provided to patient, who initially verbalized understanding and repeated them back to this provider. Unfortunately, when expectations were reviewed right before attempt to go outside, patient escalated and demanded discharge and stated she was not going to the [facility]. Based on this behavior, it was deemed patient was not appropriate to go outside today. - Received amended court order to reflect updated 304 commitment to [facility] - following up to formally place patient on the waitlist 10/12 - Continue current medication regimen - pt due for next Invega Sustenna injection on 10/14 - Received confirmation that patient was formally placed on the waitlist at [facility], no available bed date at this time - Pt updated on status of [facility] referral, also updated that we were informed there is another Stateless-speaking patient on the unit she will be admitted to and they have two Stateless-speaking staff/interpreters on service. 10/13 - Continue current medication regimen - maintenance injection of Invega Sustenna due 10/14 - Awaiting bed date at [facility] 10/14 - Continue current treatment plan - Pt tolerated first maintenance injection of Invega Sustenna ordered for today - will be due again on 11/11 for next maintenance injection - Awaiting bed date and transfer to [facility] - Pt continues to be too delusional and agitated to tolerate a visit outside, will continue to assess 10/15 - 10/19 - Continue current treatment plan - Awaiting bed date and transfer to [facility] 10/20--reviewed. Continue current meds and treatment plan pending [facility] bed date. 10/21--reviewed. Continue current meds and treatment plan pending [facility] bed date. 10/22--reviewed. Continue current meds and treatment plan pending [facility] bed date. Will add PPI for presumed reflux/?hiatal hernia hx. Would need to go off unit for abdominal films and currently NAD. 10/23 - Continue current treatment plan. - Awaiting bed date and transfer to [facility] 10/24 - Continue current treatment plan - Received update that patient will be accepted to [facility] with a bed date of 11/09/2019. - Pt updated about discharge timeline and denied questions 10/25 - Continue current treatment plan - Pt remains delusional - recently mentioning that she has an octopus in her stomach, placed there by a man who lives in [place] - Discharge to [facility] is anticipated for 11/09/201910/26 - Continue current treatment plan 10/27 -continue current treatment plan and continue gentle reality testing rajani regarding discharge plans - Discharge to [facility] is anticipated for 11/09/2019 (2) Noncompliance with medication regimen: 09/02 - Unable to clarify if pt has been taking her medications regularly in the days since discharge. She at first indicated that she was not then indicated the medications arein a bag of hers but did not indicate actually taking them. The patient also claims to not recall the names of any of her medications and reports that she does not have the conditions for which her known medications are clearly intended. Possible cognitive impairments. might be impacting medication compliance. language impairments with pt not speaking Dive[place] impacting compliance concerns. -The patient's underlying psychiatric condition will be actively treated. It is hoped that with treatment we will be able to improve medication compliance and also address aspects that impact compliance and improve this with appropriate interventions. CANTOR form of Invega to be continued at this time, next dose not due for another 2 weeks. Pt took meds this morning that were offered to her but given her extensive non compliance prior to, during and seeming after recent admission and lack of insight to her dx and presentation and indicating that recent hospitalization was quite helpful for her and her indicating wanting to continue her medications as was rx' at end of recent [facility] admission and were instructed to take at that discharge. I am in favor of medication over objection if pt objects to taking her medication during the course of this admission or if it is determined that pt is checking or not actually taking her medications. 10/16 - Pt has continued to tolerate Invega Sustenna maintenance injections. Last received injection on 10/15/2019, due for next injections of 234mg IM on 11/11 (3) Homeless: 09/03/19 -In the past, the patient has lived with family members. However, this is clearly not an option at the present time. The context is that the patient reportedly was in residential for approximately a year because of her making terroristic threats against the family. While it does seem clear that the family wants to help protect her, they are unable to safely provide assisted. Given the patient's history of neglect of self-care, medication nonadherence, and possible cognitive deficits we are going to investigate structured residential programs as part of our discharge planning. 09/03 -patient has consistently refused assistance with housing, insisting that she has a house in [place], although has not been able to provide an address and her family states this is not true. 09/06 - Patient's grandson called unit yesterday to provide additional information, stating the patient has been homeless for quite some time and there is no valid address for the patient 09/29 pt remains delusional about having a home and is agitated if this is approached or challenged in anyway 09/30 did not discuss further today as this is a point of delusion and been shown to be refractory to challenging in anyway (4) Involuntary commitment: 09/03 -patient on a 304 IOC, readmitted on a 302. We will file for a 306 conversion hearing. 09/04 - 306 hearing scheduled for 09/05; anticipate referral to [facility]. 09/05 -306 conversion granted, now here on a 304 involuntary commitment. 09/07 - Referral packet sent to [facility] on 09/06 (5) Nicotine abuse: 09/02 - Nicotine Patch 7mg topical daily resumed, and smoking cessation to be done when pt is in more apposite mental state to do so Inventory Assets Strengths: concerned family members, pleasant on approach Needs: stable housing, improved compliance to medication and treatment plan. Risk Factors Assessment Male: No : No Do You Have Access To A Gun?: No Health Problems: No Mental Health Diagnoses: Yes Substance Use Disorders: No Previous Attempt: Yes (Per family, patient denies) Previous Psychiatric Hospitalization: Yes Hopelessness: No Smoker: Yes Protective Factors Assessment : No Responsible for Young Children: No Employed: No Stable Relationships: No Supportive Family: No Good Rapport with Provider: No Interval History Identifying Information ANDREW CYR is a 64-year-old F who currently is homeless in [facility], has a history of schizoaffective disorder, bipolar type, and was admitted on 09/03/19 05:42 on a 302 involuntary commitment for psychosis, suicidal ideation, inability to provide for basic needs, and medication noncompliance. Chief Complaint "getting discharged in 12 days". Review of Systems Sleep Information Total Hours of Sleep: 8 Sleep Comments: ate snacks at 0145-awake for a little while after then back to sleep. Meal Information Percent Meal Consumed - Breakfast: 100 Percent Meal Consumed - Lunch: 100 Percent Meal Consumed - Dinner: 100 Nutrition Comment: documented from the pt. meal record Subjective Subjective Patient was seen & assessed and interval progress reviewed with nursing and social work. Pt is happy today as is expecting discharge in 12 days. However she indicates that she will be discharged home insteado f to [facility]. This is shared in a delusional manner as pt has had numerous conversation about her actual discharge plans and indicates does not want to talk about that when blurb writer brings it up. She indicates that she feels she has no reason to not be living at her house and indicates her mother can help her with things. She expresses no insight into her presentation or dx or into raitonale for her hospital stay and does not attempt to explain alternative rationales for her hospital stay besides the doctors told her to wait here and that she is glad I am here now. denied GI smptoms today Physical Exam Psychiatric Orientation: alert, oriented x 3, oriented to person, oriented to place, cooperative (superficially) and + guarded (only superficially cooperative ) Apperance: appropriately dressed (casually, in t-shirt and leggings - patient later changed into a dress), appropriately groomed, + disheveled and appeared stated age Eye Contact: good eye contact, + fair eye contact and + poor eye contact (staring off in the distance, a few brief episodes of direct eye contact) Motor Behavior: steady gait and station, no abnormal motor movements and + psychomotor agitation (pacing ); no psychomotor retardation, n EPS and n akathisia Speech: + loud speech (yelling, irritable tone) and normal rate/rhythm/volume of speech; no pressured speech Affect: mood congruent with affect happy excited affect thatf becomes wary and concerned when explored about actual discharge plan versus her preferred discharge plan Mood: no depressed mood ("Good") and no irritable mood happy Thought Process: goal directed thought process, + thought blocking (paucity of thought, prolonged delays prior to responding to questions), + circumstantial t hought process, + tangential thought process, + looseness of associations, + perseveration (on abdominal pain and GI complaints), + confabulations, + concrete thought process and + incoherent thought process; + thought process not linear or logical and + thought process not clear or coherent Thought Content: + preoccupation, + paranoid, + delusions and + persecution; no hopelessness Suicidal Thoughts: denies suicidal thoughts and denies suicidal intent Homicidal Thoughts: denies homicidal thoughts Hallucinations: no auditory hallucinations and no visual hallucinations Cognition: attention grossly intact and language grossly intact; + recent memory not intact (Asks the same questions quickly) and + remote memory not intact Estimated Intelligence: consistent with education level Insight: + poor insight, + impaired insight and + severely impaired insight Judgement: + limited judgement, + poor judgement, + impaired judgement and + severely impaired judgement Vital Signs (Past 24 Hours) Last Vital Signs Temp 36.7 C 10/28/19 06:48 Pulse 75 10/28/19 06:49 Resp 18 10/28/19 06:48 BP 124/78 10/28/19 06:49 Pulse Ox 95 09/03/19 05:47 Gastrointestinal (Abdomen) Inspection/Auscultation: normal bowel sounds; no visible herniation and no visible pulsation Percussion/Palpation: + abdomen tender (reported strictly in umbilical region, more mild today) and abdomen soft; no guarding Results & Data ([facility]) Current Inpatient Medications Current Inpatient Medications: Current Inpatient Medications Acetaminophen (Tylenol) 650 mg PO Q4H PRN PRN Reason: Headache or Minor Fever Stop: 11/02/19 08:46 Last Admin: 10/22/19 18:54 Dose: 650 mg Documented by: Al Hydrox/Mg Hydrox/Simethicone (Maalox) 30 ml PO Q4H PRN PRN Reason: GI Upset Stop: 11/02/19 08:46 Bismuth Subsalicylate (Kaopectate) 15 ml PO PRN PRN PRN Reason: Loose Stool Stop: 11/02/19 08:46 Docusate Sodium (Colace) 100 mg PO BID CLARISA Stop: 11/02/19 20:59 Last Admin: 10/28/19 09:30 Dose: 100 mg Documented by: Haloperidol (Haldol) 5 mg PO Q6H PRN PRN Reason: Agitation/Psychosis Stop: 11/04/19 15:13 Last Admin: 10/19/19 18:27 Dose: 5 mg Documented by: Hydroxyzine HCl (Vistaril) 50 mg PO HSZ PRN PRN Reason: Insomnia Stop: 11/02/19 08:46 Hydroxyzine HCl (Vistaril) 25 mg PO Q4H PRN PRN Reason: Anxiety Stop: 11/02/19 08:46 Levothyroxine Sodium (Synthroid) 75 mcg PO DAILYBB CLARISA Stop: 11/02/19 07:59 Last Admin: 10/28/19 09:30 Dose: 75 mcg Documented by: [place] Carbonate (Eskalith) 450 mg PO BID CLARISA Stop: 11/02/19 08:59 Last Admin: 10/28/19 09:30 Dose: 450 mg Documented by: Magnesium Hydroxide (Milk Of Magnesia) 30 ml PO DAILY PRN PRN Reason: Constipation Stop: 11/02/19 08:46 Paliperidone Palmitate (Invega Sustenna) 234 mg IM Q28D@0900 CLARISA Stop: 11/14/19 10:59 Last Admin: 10/15/19 11:32 Dose: 234 mg Documented by: Simvastatin (Zocor) 10 mg PO HS CLARISA Stop: 11/02/19 21:59 Last Admin: 10/27/19 20:34 Dose: 10 mg Documented by: Sodium Chloride ([place] Nasal) 1 - 2 sprays NA PRN PRN PRN Reason: Nasal Dryness/Congestion Stop: 11/02/19 08:46 Mental Health & Subst Abuse Tx Psychiatrist Name of Psychiatrist: . Psychiatrist's Phone Number: . Date of Appointment with Psychiatrist: 09/14/19 Time of Appointment with Psychiatrist: . Psychiatric Appointment Comment: . Therapist Name of Therapist: . Study Lead Name of Study Lead: [facility] - Lizzy Pandey Phone Number for Study Lead: [phone] Post Discharge Appointments Primary Care Physician Name Of Family Doctor: [facility] Primary Care Provider Appointment Comment: [id number] [facility], [address], [place] [address]
[2019-10-28] MEDS: SIMVASTATIN 10 MG TAB PO SCH (21:08)
[2019-10-29] MEDS: LITHIUM CARBONATE 450 MG TABCR PO SCH ×2 (08:37→21:25)
[2019-10-29] MEDS: LEVOTHYROXINE SODIUM 75 MCG TABLET PO SCH (08:37)
[2019-10-29] MEDS: DOCUSATE SODIUM 100 MG CAP PO SCH ×2 (08:37→21:25)
--- NOTE | 2019-10-29 14:37 | Psychiatric Progress Note ---
Date of Service October 29, 2019 Impression / Recommendations Impression 63-year-old Greek female with schizoaffective disorder bipolar type admitted on a 302 commitment 4 days after being discharged from this unit on 08/29 after a 27-day hospitalization. She was discharged on a 304 IOC, and returned to the ER later that same day, after police were called due to bizarre behavior at a local grocery store, and was again discharged. Readmitted several days later with psychotic symptoms including paranoia, delusions of persecution (that people were trying to poison/harm her), refusing to eat with hypokalemia, homelessness, delusions that she owns a home, and inability to provide for her own basic needs. Additionally, family members who petitioned reported she made suicidal statements and walked into traffic, and reported delusions that her son had stabbed her in her intestines were hanging out. They also reported she had been noncompliant with oral psychotropic medications, and although her case monitor assisted her to fill these on the day of discharge, she did not bring them into the hospital with her and says she does not know where they are. She has repeatedly demonstrated complete inability to provide for her own basic needs outside of the hospital, including health, welfare, mcfp, food, and safety. Inpatient treatment is medically necessary due to the severity of her symptoms and risk for suicide if discharged. She is now on a 304 involuntary commitment, has been started on Invega Sustenna, and has been referred to the [facility] long-term inpatient treatment. Referral was made on 09/07/2019, received update on 10/12/2019 that patient is officially on the waitlist. Bed date of 11/09/2019 was provided to our team on 10/25/2019. Pt updated with this information. Patient isolative in her room but remains delusional with believes that she has a home in [place] she can return to, and therefore continues to be uncooperative with appropriate discharge planning and is not demonstrating ability to tolerate community re-entry. 10/27 - Pt repressing actual discharge plans and converting them in her delusional thinking to her preferred discharge plan with pt self endorsing actual d/c plan in positive manner on 10/28 (1) Schizoaffective disorder, bipolar type: 09/03/19 -The patient has been admitted to the locked, secured behavioral health unit and has been placed in special observation room. She is also being monitored with close observations and every 15-minute direct observation. When more stable she will be actively encouraged to participate in individual, group, and activity therapies. We will also attempt to involve the family if the patient permits us to and if they agree. - Resuming medications as was rx'd at time of discharge on 08/29 including po Invega, lithium, and Sustenna. 09/03 -continue current medications, patient is taking them. -File for 306 conversion hearing to be held 09/06/2019. She will likely need referral to the [facility] hospital due to the need for long-term inpatient treatment. -Reviewed FLP and FG from recent hospitalization 08/07/2019: Cholesterol 221, glucose 109, other values within normal limits. -Attempt to involve family is able; son-in-law Poli is petitioner and was involved in hospitalization so we will ask staff to contact him for collateral information and to determine the family's ability to assist with discharge planning and housing. She has very limited supports in the community and if they are unable to assist her with housing and care, she will likely require long-term hospitalization. -Continue private room for psychosis. 09/04 - Continue current medication regimen - patient has been compliant with medications in this structured environment - 306 conversion hearing scheduled for 09/05 - Meeting with case monitor today to discuss treatment options and continue attempts to build rapport - Referral to [facility] is being recommended at this time has patient has repeatedly demonstrated an inability to care for self and provide for basic needs without the support of a structured psychiatric setting. - EKG (WNL). PPD was refused by patient - CXR ordered 09/05 -306 hearing held and patient converted to a 304 involuntary commitment. -Referred to [facility] for long-term inpatient treatment, as patient is severely ill and unable to provide for her own basic needs as a result of her mental illness, and treatment for 27 days on our acute unit was insufficient for successful transition to the community. She was at [facility] for 4 months within the past year, and did respond to treatment there, so returned to the [facility] as recommended for long-term treatment of SPMI. -EKG and chest x-ray completed for state hospital referral. 09/06 - Continue current medication regimen - Referral to [facility] is being prepared, approval was reportedly received from the county - Ongoing attempt to build rapport with psychiatric case monitor 09/07 - 09/09 - Continue current medication regimen - Referral sent to [facility] on 09/07/2019 for recommended long- term psychiatric hospitalization based on chronic medication/treatment non- compliance and repeated demonstration of inability to care for self outside of a structured psychiatric setting. - Pt was informed of [facility] referral today during encounter 09/10 - Continue current medication regimen - [facility] referral sent on 09/07/2019 - requesting updates regarding when case is anticipated to be reviewed and ensure information was received - Pt continues to demand to leave, unable to appreciated the severity of her condition. Ongoing concern related to patient's repeated demonstration of inability to care for self outside of a structured psychiatric setting. 09/11 - Continue current medication regimen - Awaiting acceptance at [facility]. Ongoing concern related to patient's repeated demonstration of inability to care for self outside of a structured psychiatric setting. 09/12 - 09/14 - Pt due for next injection of Invega Sustenna 234mg IM on 09/16. Oral supplementation was continued from last hospitalization due to concern for ongoing instability with regard to psychotic symptoms. In preparation for first maintenance dose, will reduce oral supplementation to 3mg qAM and discontinue oral paliperidone on 09/16. Continue lithium 450mg BID unchanged. - Awaiting replay for [facility] regarding referral. Ongoing concern related to patient's repeated demonstration of inability to care for self outside of a structured psychiatric setting. Pt has consistently not been agreeable to diversion planning as a result of fixed delusional beliefs that she has family support, that she has a house to live in, and that she has a lot of money - none of these statements confirmed to be true. 09/15 -Continue treatment plan as previously prescribed 09/16 -now fully converted to invega sustenna. 09/17 - Continue current treatment plan 09/18 - 09/20 - Continue current treatment plan - Confirmed that information from patient's hospitalization at our facility was received by [facility], but case has not yet been reviewed. Still awaiting determination of acceptance status. 09/21 - continue current meds and tx plan. Reinstitute medically necessary private room as hx of aggression, labile mood, poor ability to keep contact precautions with COVID, hx homelessness higher risk category 09/22 - 09/23 - continue current meds and tx plan. 7/6 continue current meds and tx plan. MNPR for now as less paranoid and more visible on unit. 09/25 - Continue current treatment plan - patient remains irritable, paranoid, and delusional - Continue MNPR for paranoia and irritability 09/26 - Continue current treatment plan - Still awaiting response from [facility], 3 weeks after initially referral packet was sent - Pt did reportedly complete her Medical Assistance application. Consider repeat meeting with the county to discuss options for diversion planning; though these remain very limited - As review of patient's treatment plan has historically been very upsetting to the patient, discharge plans have not changed, and the therapeutic value of the review is limited - discussed with patient who did agree to review her treatment plan once a week unless there are changes in the interim. This was c onfirmed by multiple parties and can be reviewed with greater frequency at which time patient better tolerates the conversation and the therapeutic value is increased. 09/27 - 10/01 - Continue current treatment plan - Still awaiting response from [facility] - Pt is unwilling to consider alternative housing options - she maintains the delusion that she has a penthouse in [place] which has been confirmed to be untrue. 10/02 - Continue as above - medications renewed - Still awaiting response from [facility] - Pt maintains fixed delusions that are interfering significantly with patient's ability to adequately care for herself outside of a structured/supervised setting 10/03 - Continue current medication regimen - 30-day treatment review; treatment plan reviewed with patient who did become angry when length of stay was reviewed. Again became acutely agitated during conversation with provider today - Pt demonstrated very loud yelling, acute agitation, and inability to appropriately communicate frustration. These concerns, in addition to numerous failed attempts at discharge, continue to be evidence as to why patient is not appropriate to be discharged to the community. - Pt is not appropriate to go outside based on episodes of acute agitation and continued delusions which interfere with patient's ability to ensure appropriate behavior 10/04 - 10/05 - Continue current medication regimen - Pt remains inappropriate to go outside - Plan remains for transfer to the [facility] - no response regarding acceptance 10/06 - 10/07 -continue current plan. Amended court order to be obtained Wednesday and sent to the [facility] for acceptance and put patient on their wait list. 10/08 - 10/10 - continue current plan. Discharge plan continues to be placement at [facility] - Pt continues to be inappropriate to go outside based on continued demands for discharge, delusional thought content, and concerns for elopement risk if taken outside the hospital setting 10/11 - Continue current treatment plan - anticipated discharge to [facility] - Did review in detail expectations related to ability to go outside. Expectations were provided to patient, who initially verbalized understanding and repeated them back to this provider. Unfortunately, when expectations were reviewed right before attempt to go outside, patient escalated and demanded discharge and stated she was not going to the [facility]. Based on this behavior, it was deemed patient was not appropriate to go outside today. - Received amended court order to reflect updated 304 commitment to [facility] - following up to formally place patient on the waitlist 10/12 - Continue current medication regimen - pt due for next Invega Sustenna injection on 10/14 - Received confirmation that patient was formally placed on the waitlist at [facility], no available bed date at this time - Pt updated on status of [facility] referral, also updated that we were informed there is another Nauruan-speaking patient on the unit she will be admitted to and they have two Nauruan-speaking staff/interpreters on service. 10/13 - Continue current medication regimen - maintenance injection of Invega Sustenna due 10/14 - Awaiting bed date at [facility] 10/14 - Continue current treatment plan - Pt tolerated first maintenance injection of Invega Sustenna ordered for today - will be due again on 11/11 for next maintenance injection - Awaiting bed date and transfer to [facility] - Pt continues to be too delusional and agitated to tolerate a visit outside, will continue to assess 10/15 - 10/19 - Continue current treatment plan - Awaiting bed date and transfer to [facility] 10/20--reviewed. Continue current meds and treatment plan pending [facility] bed date. 10/21--reviewed. Continue current meds and treatment plan pending [facility] bed date. 10/22--reviewed. Continue current meds and treatment plan pending [facility] bed date. Will add PPI for presumed reflux/?hiatal hernia hx. Would need to go off unit for abdominal films and currently NAD. 10/23 - Continue current treatment plan. - Awaiting bed date and transfer to [facility] 10/24 - Continue current treatment plan - Received update that patient will be accepted to [facility] with a bed date of 11/09/2019. - Pt updated about discharge timeline and denied questions 10/25 - Continue current treatment plan - Pt remains delusional - recently mentioning that she has an octopus in her stomach, placed there by a man who lives in [place] - Discharge to [facility] is anticipated for 11/09/201910/26 - Continue current treatment plan 10/27 -continue current treatment plan and continue gentle reality testing rajani regarding discharge plans - Discharge to [facility] is anticipated for 11/09/201910/28 pt stating in positivem mohsen will be discharged to another hospital on 11/08 (2) Noncompliance with medication regimen: 09/02 - Unable to clarify if pt has been taking her medications regularly in the days since discharge. She at first indicated that she was not then indicated the medications arein a bag of hers but did not indicate actually taking them. The patient also claims to not recall the names of any of her medications and reports that she does not have the conditions for which her known medications are clearly intended. Possible cognitive impairments. might be impacting medication compliance. language impairments with pt not speaking German impacting compliance concerns. -The patient's underlying psychiatric condition will be actively treated. It is hoped that with treatment we will be able to improve medication compliance and also address aspects that impact compliance and improve this with appropriate interventions. CANTOR form of Invega to be continued at this time, next dose not due for another 2 weeks. Pt took meds this morning that were offered to her but given her extensive non compliance prior to, during and seeming after recent admission and lack of insight to her dx and presentation and indicating that recent hospitalization was quite helpful for her and her indicating wanting to continue her medications as was rx' at end of recent [facility] admission and were instructed to take at that discharge. I am in favor of medication over objection if pt objects to taking her medication during the course of this admission or if it is determined that pt is checking or not actually taking her medications. 10/16 - Pt has continued to tolerate Invega Sustenna maintenance injections. Last received injection on 10/15/2019, due for next injections of 234mg IM on 11/11 (3) Homeless: 09/03/19 -In the past, the patient has lived with family members. However, this is clearly not an option at the present time. The context is that the patient reportedly was in custodial for approximately a year because of her making terroristic threats against the family. While it does seem clear that the family wants to help protect her, they are unable to safely provide mcfp. Given the patient's history of neglect of self-care, medication nonadherence, and possible cognitive deficits we are going to investigate structured resi dential programs as part of our discharge planning. 09/03 -patient has consistently refused assistance with housing, insisting that she has a house in [place], although has not been able to provide an address and her family states this is not true. 09/06 - Patient's grandson called unit yesterday to provide additional information, stating the patient has been homeless for quite some time and there is no valid address for the patient 09/29 pt remains delusional about having a home and is agitated if this is approached or challenged in anyway 09/30 did not discuss further today as this is a point of delusion and been shown to be refractory to challenging in anyway (4) Involuntary commitment: 09/03 -patient on a 304 IOC, readmitted on a 302. We will file for a 306 conversion hearing. 09/04 - 306 hearing scheduled for 09/05; anticipate referral to [facility]. 09/05 -306 conversion granted, now here on a 304 involuntary commitment. 09/07 - Referral packet sent to [facility] on 09/06 (5) Nicotine abuse: 09/02 - Nicotine Patch 7mg topical daily resumed, and smoking cessation to be done when pt is in more apposite mental state to do so Inventory Assets Strengths: concerned family members, pleasant on approach Needs: stable housing, improved compliance to medication and treatment plan. Risk Factors Assessment Male: No : No Do You Have Access To A Gun?: No Health Problems: No Mental Health Diagnoses: Yes Substance Use Disorders: No Previous Attempt: Yes (Per family, patient denies) Previous Psychiatric Hospitalization: Yes Hopelessness: No Smoker: Yes Protective Factors Assessment : No Responsible for Young Children: No Employed: No Stable Relationships: No Supportive Family: No Good Rapport with Provider: No Interval History Identifying Information ANDREW CYR is a 64-year-old F who currently is homeless in [facility], has a history of schizoaffective disorder, bipolar type, and was admitted on 09/03/19 05:42 on a 302 involuntary commitment for psychosis, suicidal ideation, inability to provide for basic needs, and medication noncompliance. Chief Complaint "good". Review of Systems Sleep Information Total Hours of Sleep: 6 Sleep Comments: ate snacks at 0145-awake for a little while after then back to sleep. Meal Information Percent Meal Consumed - Breakfast: 100 Percent Meal Consumed - Lunch: 100 Percent Meal Consumed - Dinner: 100 Nutrition Comment: documented from the pt. meal record Subjective Subjective Patient was seen & assessed and interval progress reviewed with nursing and social work, assessment was done using hospital interpretive system (Nauruan speaking). Pt indicated that her mood is good because she is discharging on to go to another hospital. She indicated having discomfort on her Right outer thigh that would be interested into take tyl to help alleviate. he denied any GI complaints. She denied s/e to her medication. she is noted to be with good grooming and being out in the dayroom at times during the day. awoke middle of night but feel back asleep and appetite intact and eating meals fully. no SI or HI, denied paranoid thinking and denied AH or VH Physical Exam Psychiatric Orientation: alert, oriented x 3, oriented to place and cooperative Apperance: appropriately dressed (casually, in t-shirt and leggings - patient later changed into a dress), appropriately groomed and appeared stated age Eye Contact: + fair eye contact Motor Behavior: steady gait and station and no abnormal motor movements; no psychomotor retardation, n EPS and n akathisia Speech: normal rate/rhythm/volume of speech; no pressured speech Affect: euthymic affect Mood: no depressed mood ("Good"), no anxious mood, no irritable mood and no angry mood Thought Process: goal directed thought process and + concrete thought process Thought Content: + delusions; no hopelessness Suicidal Thoughts: denies suicidal thoughts and denies suicidal intent Homicidal Thoughts: denies homicidal thoughts Hallucinations: no auditory hallucinations and no visual hallucinations Cognition: attention grossly intact and language grossly intact; + recent memory not intact (Asks the same questions quickly) and + remote memory not intact Estimated Intelligence: consistent with education level Insight: + severely impaired insight Judgement: + severely impaired judgement Vital Signs (Past 24 Hours) Last Vital Signs Temp 36.8 C 10/29/19 06:00 Pulse 93 H 10/29/19 06:14 Resp 17 10/29/19 06:00 BP 148/87 H 10/29/19 06:14 Pulse Ox 95 09/03/19 05:47 Results & Data ([facility]) Current Inpatient Medications Current Inpatient Medications: Current Inpatient Medications Acetaminophen (Tylenol) 650 mg PO Q4H PRN PRN Reason: Headache or Minor Fever Stop: 11/02/19 08:46 Last Admin: 10/22/19 18:54 Dose: 650 mg Documented by: Al Hydrox/Mg Hydrox/Simethicone (Maalox) 30 ml PO Q4H PRN PRN Reason: GI Upset Stop: 11/02/19 08:46 Bismuth Subsalicylate (Kaopectate) 15 ml PO PRN PRN PRN Reason: Loose Stool Stop: 11/02/19 08:46 Docusate Sodium (Colace) 100 mg PO BID [facility] Stop: 11/02/19 20:59 Last Admin: 10/29/19 08:37 Dose: 100 mg Documented by: Haloperidol (Haldol) 5 mg PO Q6H PRN PRN Reason: Agitation/Psychosis Stop: 11/04/19 15:13 Last Admin: 10/19/19 18:27 Dose: 5 mg Documented by: Hydroxyzine HCl (Vistaril) 50 mg PO HSZ PRN PRN Reason: Insomnia Stop: 11/02/19 08:46 Hydroxyzine HCl (Vistaril) 25 mg PO Q4H PRN PRN Reason: Anxiety Stop: 11/02/19 08:46 Levothyroxine Sodium (Synthroid) 75 mcg PO DAILYBB [facility] Stop: 11/02/19 07:59 Last Admin: 10/29/19 08:37 Dose: 75 mcg Documented by: [place] Carbonate (Eskalith) 450 mg PO BID [facility] Stop: 11/02/19 08:59 Last Admin: 10/29/19 08:37 Dose: 450 mg Documented by: Magnesium Hydroxide (Milk Of Magnesia) 30 ml PO DAILY PRN PRN Reason: Constipation Stop: 11/02/19 08:46 Paliperidone Palmitate (Invega Sustenna) 234 mg IM Q28D@0900 [facility] Stop: 11/14/19 10:59 Last Admin: 10/15/19 11:32 Dose: 234 mg Documented by: Simvastatin (Zocor) 10 mg PO HS CLARISA Stop: 11/02/19 21:59 Last Admin: 10/28/19 21:08 Dose: 10 mg Documented by: Sodium Chloride ([place] Nasal) 1 - 2 sprays NA PRN PRN PRN Reason: Nasal Dryness/Congestion Stop: 11/02/19 08:46 Mental Health & Subst Abuse Tx Psychiatrist Name of Psychiatrist: . Psychiatrist's Phone Number: . Date of Appointment with Psychiatrist: 09/14/19 Time of Appointment with Psychiatrist: . Psychiatric Appointment Comment: . Therapist Name of Therapist: . General Inspector Name of General Inspector: [facility] [employer] [facility] - Lizzy Pandey Phone Number for General Inspector: [phone] Post Discharge Appointments Primary Care Physician Name Of Family Doctor: [facility] Primary Care Provider Appointment Comment: [id number], [address], [place] [address]
[2019-10-29] MEDS: SIMVASTATIN 10 MG TAB PO SCH (21:25)
[2019-10-30] MEDS: DOCUSATE SODIUM 100 MG CAP PO SCH ×2 (08:32→21:16)
[2019-10-30] MEDS: LEVOTHYROXINE SODIUM 75 MCG TABLET PO SCH (08:32)
[2019-10-30] MEDS: LITHIUM CARBONATE 450 MG TABCR PO SCH ×2 (08:32→21:16)
--- NOTE | 2019-10-30 08:46 | Psychiatric Progress Note ---
Date of Service October 30, 2019 Impression / Recommendations Impression 63-year-old [place] female with schizoaffective disorder bipolar type admitted on a 302 commitment 4 days after being discharged from this unit on 08/29 after a 27-day hospitalization. She was discharged on a 304 IOC, and returned to the ER later that same day, after police were called due to bizarre behavior at a local grocery store, and was again discharged. Readmitted several days later with psychotic symptoms including paranoia, delusions of persecution (that people were trying to poison/harm her), refusing to eat with hypokalemia, homelessness, delusions that she owns a home, and inability to provide for her own basic needs. Additionally, family members who petitioned reported she made suicidal statements and walked into traffic, and reported delusions that her son had stabbed her in her intestines were hanging out. They also reported she had been noncompliant with oral psychotropic medications, and although her top case assembler assisted her to fill these on the day of discharge, she did not bring them into the hospital with her and says she does not know where they are. She has repeatedly demonstrated complete inability to provide for her own basic needs outside of the hospital, including health, welfare, usp, food, and safety. Inpatient treatment is medically necessary due to the severity of her symptoms and risk for suicide if discharged. She is now on a 304 involuntary commitment, has been started on Invega Sustenna, and has been referred to the [facility] long-term inpatient treatment. Referral was made on 09/07/2019, received update on 10/12/2019 that patient is officially on the waitlist. Bed date of 11/09/2019 was provided to our team on 10/25/2019. Pt updated with this information. Patient isolative in her room but remains delusional with believes that she has a home in [place] she can return to, and therefore continues to be uncooperative with appropriate discharge planning and is not demonstrating ability to tolerate community re-entry. (1) Schizoaffective disorder, bipolar type: 09/03/19 -The patient has been admitted to the locked, secured behavioral health unit and has been placed in special observation room. She is also being monitored with close observations and every 15-minute direct observation. When more stable she will be actively encouraged to participate in individual, group, and activity therapies. We will also attempt to involve the family if the patient permits us to and if they agree. - Resuming medications as was rx'd at time of discharge on 08/29 including po Invega, lithium, and Sustenna. 09/03 -continue current medications, patient is taking them. -File for 306 conversion hearing to be held 09/06/2019. She will likely need referral to the [facility] due to the need for long-term inpatient treatment. -Reviewed FLP and FG from recent hospitalization 08/07/2019: Cholesterol 221, glucose 109, other values within normal limits. -Attempt to involve family is able; son-in-law Poli is petitioner and was involved in hospitalization so we will ask staff to contact him for collateral information and to determine the family's ability to assist with discharge planning and housing. She has very limited supports in the community and if they are unable to assist her with housing and care, she will likely require long-term hospitalization. -Continue private room for psychosis. 09/04 - Continue current medication regimen - patient has been compliant with medications in this structured environment - 306 conversion hearing scheduled for 09/05 - Meeting with top case assembler today to discuss treatment options and continue attempts to build rapport - Referral to [facility] is being recommended at this time has patient has repeatedly demonstrated an inability to care for self and provide for basic needs without the support of a structured psychiatric setting. - EKG (WNL). PPD was refused by patient - CXR ordered 09/05 -306 hearing held and patient converted to a 304 involuntary commitment. -Referred to [facility] for long-term inpatient treatment, as patient is severely ill and unable to provide for her own basic needs as a result of her mental illness, and treatment for 27 days on our acute unit was insufficient for successful transition to the community. She was at [facility] for 4 months within the past year, and did respond to treatment there, so returned to the [facility] hospital as recommended for long-term treatment of SPMI. -EKG and chest x-ray completed for state hospital referral. 09/06 - Continue current medication regimen - Referral to [facility] is being prepared, approval was reportedly received from the [facility] - Ongoing attempt to build rapport with psychiatric top case assembler 09/07 - 09/09 - Continue current medication regimen - Referral sent to [facility] on 09/07/2019 for recommended long- term psychiatric hospitalization based on chronic medication/treatment non- compliance and repeated demonstration of inability to care for self outside of a structured psychiatric setting. - Pt was informed of [facility] referral today during encounter 09/10 - Continue current medication regimen - [place] referral sent on 09/07/2019 - requesting updates regarding when case is anticipated to be reviewed and ensure information was received - Pt continues to demand to leave, unable to appreciated the severity of her condition. Ongoing concern related to patient's repeated demonstration of inability to care for self outside of a structured psychiatric setting. 09/11 - Continue current medication regimen - Awaiting acceptance at [facility]. Ongoing concern related to patient's repeated demonstration of inability to care for self outside of a structured psychiatric setting. 09/12 - 09/14 - Pt due for next injection of Invega Sustenna 234mg IM on 09/16. Oral supplementation was continued from last hospitalization due to concern for ongoing instability with regard to psychotic symptoms. In preparation for first maintenance dose, will reduce oral supplementation to 3mg qAM and discontinue oral paliperidone on 09/16. Continue lithium 450mg BID unchanged. - Awaiting replay for [facility] regarding referral. Ongoing concern related to patient's repeated demonstration of inability to care for self outside of a structured psychiatric setting. Pt has consistently not been agreeable to diversion planning as a result of fixed delusional beliefs that she has family support, that she has a house to live in, and that she has a lot of money - none of these statements confirmed to be true. 09/15 -Continue treatment plan as previously prescribed 09/16 -now fully converted to invega sustenna. 09/17 - Continue current treatment plan 09/18 - 09/20 - Continue current treatment plan - Confirmed that information from patient's hospitalization at our facility was received by [facility], but case has not yet been reviewed. Still awaiting determination of acceptance status. 09/21 - continue current meds and tx plan. Reinstitute medically necessary private room as hx of aggression, labile mood, poor ability to keep contact precautions with COVID, hx homelessness higher risk category 09/22 - 09/23 - continue current meds and tx plan. 09/24 continue current meds and tx plan. MNPR for now as less paranoid and more visible on unit. 09/25 - Continue current treatment plan - patient remains irritable, paranoid, and delusional - Continue MNPR for paranoia and irritability 09/26 - Continue current treatment plan - Still awaiting response from [facility], 3 weeks after initially referral packet was sent - Pt did reportedly complete her Medical Assistance application. Consider repeat meeting with the county to discuss options for diversion planning; though these remain very limited - As review of patient's treatment plan has historically been very upsetting to the patient, discharge plans have not changed, and the therapeutic value of the review is limited - discussed with patient who did agree to review her treatment plan once a week unless there are changes in the interim. This was confirmed by multiple parties and can be reviewed with greater frequency at which time patient better tolerates the conversation and the therapeutic value is increased. 09/27 - 10/01 - Continue current treatment plan - Still awaiting response from [facility] - Pt is unwilling to consider alternative housing options - she maintains the delusion that she has a penthouse in [place] which has been confirmed to be untrue. 10/02 - Continue as above - medications renewed - Still awaiting response from [facility] - Pt maintains fixed delusions that are interfering significantly with patient's ability to adequately care for herself outside of a structured/supervised setting 10/03 - Continue current medication regimen - 30-day treatment review; treatment plan reviewed with patient who did become angry when length of stay was reviewed. Again became acutely agitated during conversation with provider today - Pt demonstrated very loud yelling, acute agitation, and inability to appropriately communicate frustration. These concerns, in addition to numerous failed attempts at discharge, continue to be evidence as to why patient is not appropriate to be discharged to the community. - Pt is not appropriate to go outside based on episodes of acute agitation and continued delusions which interfere with patient's ability to ensure appropriate behavior 10/04 - 10/05 - Continue current medication regimen - Pt remains inappropriate to go outside - Plan remains for transfer to the [facility] - no response regarding acceptance 10/06 - 10/07 -continue current plan. Amended court order to be obtained Wednesday and sent to the [facility] for acceptance and put patient on their wait list. 10/08 - 10/10 - continue current plan. Discharge plan continues to be placement at [facility] - Pt continues to be inappropriate to go outside based on continued demands for discharge, delusional thought content, and concerns for elopement risk if taken outside the hospital setting 10/11 - Continue current treatment plan - anticipated discharge to [facility] - Did review in detail expectations related to ability to go outside. Expectations were provided to patient, who initially verbalized understanding and repeated them back to this provider. Unfortunately, when expectations were reviewed right before attempt to go outside, patient escalated and demanded discharge and stated she was not going to the [facility]. Based on this behavior, it was deemed patient was not appropriate to go outside today. - Received amended court order to reflect updated 304 commitment to [facility] - following up to formally place patient on the waitlist 10/12 - Continue current medication regimen - pt due for next Invega Sustenna injection on 10/14 - Received confirmation that patient was formally placed on the waitlist at [facility], no available bed date at this time - Pt updated on status of [place] referral, also updated that we were informed there is another Bahraini-speaking patient on the unit she will be admitted to and they have two Bahraini-speaking staff/interpreters on service. 10/13 - Continue current medication regimen - maintenance injection of Invega Sustenna due 10/14 - Awaiting bed date at [facility] 10/14 - Continue current treatment plan - Pt tolerated first maintenance injection of Invega Sustenna ordered for today - will be due again on 11/11 for next maintenance injection - Awaiting bed date and transfer to [facility] - Pt continues to be too delusional and agitated to tolerate a visit outside, will continue to assess 10/15 - 10/19 - Continue current treatment plan - Awaiting bed date and transfer to [facility] 10/20--reviewed. Continue current meds and treatment plan pending [facility] bed date. 10/21--reviewed. Continue current meds and treatment plan pending [facility] bed date. 10/22--reviewed. Continue current meds and treatment plan pending [facility] bed date. Will add PPI for presumed reflux/?hiatal hernia hx. Would need to go off unit for abdominal films and currently NAD. 10/23 - Continue current treatment plan. - Awaiting bed date and transfer to [facility] 10/24 - Continue current treatment plan - Received update that patient will be accepted to [facility] with a bed date of 11/09/2019. - Pt updated about discharge timeline and denied questions 10/25 - Continue current treatment plan - Pt remains delusional - recently mentioning that she has an octopus in her stomach, placed there by a man who lives in [place] - Discharge to [facility] is anticipated for 11/09/201910/26 - Continue current treatment plan 10/27 -continue current treatment plan and continue gentle reality testing rajani regarding discharge plans - Discharge to [facility] is anticipated for 11/09/201910/28 pt stating in positivem mohsen will be discharged to another hospital on 11/08 10/29 - Continue current treatment plan - Discharge to [facility] anticipated for 11/09/2019 (2) Noncompliance with medication regimen: 09/02 - Unable to clarify if pt has been taking her medications regularly in the days since discharge. She at first indicated that she was not then indicated the medications arein a bag of hers but did not indicate actually taking them. The patient also claims to not recall the names of any of her medications and reports that she does not have the conditions for which her known medications are clearly intended. Possible cognitive impairments. might be impacting medication compliance. language impairments with pt not speaking Bulgarian impacting compliance concerns. -The patient's underlying psychiatric condition will be actively treated. It is hoped that with treatment we will be able to improve medication compliance and also address aspects that impact compliance and improve this with appropriate interventions. CANTOR form of Invega to be continued at this time, next dose not due for another 2 weeks. Pt took meds this morning that were offered to her but given her extensive non compliance prior to, during and seeming after recent admission and lack of insight to her dx and presentation and indicating that recent hospitalization was quite helpful for her and her indicating wanting to continue her medications as was rx' at end of recent [facility] admission and were instructed to take at that discharge. I am in favor of medication over objection if pt objects to taking her medication during the course of this admission or if it is determined that pt is checking or not actually taking her medications. 10/16 - Pt has continued to tolerate Invega Sustenna maintenance injections. Last received injection on 10/15/2019, due for next injections of 234mg IM on 11/11 (3) Homeless: 09/03/19 -In the past, the patient has lived with family members. However, this is clearly not an option at the present time. The context is that the patient reportedly was in skilled nursing for approximately a year because of her making terroristic threats against the family. While it does seem clear that the family wants to help protect her, they are unable to safely provide usp. Given the patient's history of neglect of self-care, medication nonadherence, and possible cognitive deficits we are going to investigate structured residential programs as part of our discharge planning. 09/03 -patient has consistently refused assistance with housing, insisting that she has a house in [place], although has not been able to provide an address and her family states this is not true. 09/06 - Patient's grandson called unit yesterday to provide additional information, stating the patient has been homeless for quite some time and there is no valid address for the patient 09/29 pt remains delusional about having a home and is agitated if this is approached or challenged in anyway 09/30 did not discuss further today as this is a point of delusion and been shown to be refractory to challenging in anyway (4) Involuntary commitment: 09/03 -patient on a 304 IOC, readmitted on a 302. We will file for a 306 conversion hearing. 09/04 - 306 hearing scheduled for 09/05; anticipate referral to [facility]. 09/05 -306 conversion granted, now here on a 304 involuntary commitment. 09/07 - Referral packet sent to [facility] on 09/06 (5) Nicotine abuse: 09/02 - Nicotine Patch 7mg topical daily resumed, and smoking cessation to be done when pt is in more apposite mental state to do so Inventory Assets Strengths: concerned family members, pleasant on approach Needs: stable housing, improved compliance to medication and treatment plan. Risk Factors Assessment Male: No : No Do You Have Access To A Gun?: No Health Problems: No Mental Health Diagnoses: Yes Substance Use Disorders: No Previous Attempt: Yes (Per family, patient denies) Previous Psychiatric Hospitalization: Yes Hopelessness: No Smoker: Yes Protective Factors Assessment : No Responsible for Young Children: No Employed: No Stable Relationships: No Supportive Family: No Good Rapport with Provider: No Interval History Identifying Information ANDREW CYR is a 64-year-old F who currently is homeless in [facility], has a history of schizoaffective disorder, bipolar type, and was admitted on 09/03/19 05:42 on a 302 involuntary commitment for psychosis, suicidal ideation, inability to provide for basic needs, and medication noncompliance. Chief Complaint "Good. Thank you." Review of Systems Notes Constitutional: denied Cardiovascular: denied Respiratory: denied Gastrointestinal: denied Neurological: denied Psychiatric: denies symptoms other than stated above Total of at least 10 systems reviewed, pertinent positives as above and in HPI. Sleep Information Total Hours of Sleep: 6.75 Sleep Comments: ate snacks at 0145-awake for a little while after then back to sleep. Meal Information Percent Meal Consumed - Breakfast: 100 Percent Meal Consumed - Lunch: 100 Percent Meal Consumed - Dinner: 100 Nutrition Comment: documented from the pt. meal record Subjective Subjective Patient was seen & assessed and interval progress reviewed with treatment team. Staff report the patient continues to be superficially cooperative and has occ asionally been participating in group programming. Discharge plan at this time is for transfer to [facility]. Pt was seen today to assess progress since admission. [place]i-Bulgarian conversation was conducted with assistance from [employer] interpretive service [facility] #[id number]. Pt states that she is "good. Thank you." She denies any new concerns today. Pt denies any physical complaints and states she had a good weekend. Pt was reminded of discharge plans and denied questions. We discussed the need for COVID-19 testing prior to transfer, and brief explanation of the nasal swab test was provided. Pt denied questions or concerns and is currently agreeable with having the testing completed. Pt denied any additional needs at this time. Physical Exam Psychiatric Orientation: alert and cooperative (superficially ) Apperance: appropriately dressed (casually, in t-shirt and leggings), appropriately groomed and appeared stated age Eye Contact: + fair eye contact Motor Behavior: steady gait and station (observed to be pacing at times in her room) and no abnormal motor movements Speech: normal rate/rhythm/volume of speech Affect: euthymic affect Mood: no depressed mood ("Good. Thank you") and no anxious mood Thought Process: goal directed thought process and + concrete thought process Thought Content: + paranoid, + delusions and + persecution Though only provides superficial interaction/conversation Suicidal Thoughts: denies suicidal thoughts Homicidal Thoughts: denies homicidal thoughts Hallucinations: no auditory hallucinations and no visual hallucinations Cognition: attention grossly intact and language grossly intact Insight: + impaired insight Judgement: + impaired judgement Vital Signs (Past 24 Hours) Last Vital Signs Temp 36.4 C L 10/30/19 06:00 Pulse 81 10/30/19 06:06 Resp 16 10/30/19 06:00 BP 128/81 10/30/19 06:06 Pulse Ox 95 09/03/19 05:47 Results & Data ([facility]) Current Inpatient Medications Current Inpatient Medications: Current Inpatient Medications Acetaminophen (Tylenol) 650 mg PO Q4H PRN PRN Reason: Headache or Minor Fever Stop: 11/02/19 08:46 Last Admin: 10/22/19 18:54 Dose: 650 mg Documented by: Al Hydrox/Mg Hydrox/Simethicone (Maalox) 30 ml PO Q4H PRN PRN Reason: GI Upset Stop: 11/02/19 08:46 Bismuth Subsalicylate (Kaopectate) 15 ml PO PRN PRN PRN Reason: Loose Stool Stop: 11/02/19 08:46 Docusate Sodium (Colace) 100 mg PO BID [facility] Stop: 11/02/19 20:59 Last Admin: 10/30/19 08:32 Dose: 100 mg Documented by: Haloperidol (Haldol) 5 mg PO Q6H PRN PRN Reason: Agitation/Psychosis Stop: 11/04/19 15:13 Last Admin: 10/19/19 18:27 Dose: 5 mg Documented by: Hydroxyzine HCl (Vistaril) 50 mg PO HSZ PRN PRN Reason: Insomnia Stop: 11/02/19 08:46 Hydroxyzine HCl (Vistaril) 25 mg PO Q4H PRN PRN Reason: Anxiety Stop: 11/02/19 08:46 Levothyroxine Sodium (Synthroid) 75 mcg PO DAILYBB [facility] Stop: 11/02/19 07:59 Last Admin: 10/30/19 08:32 Dose: 75 mcg Documented by: [place] Carbonate (Eskalith) 450 mg PO BID [facility] Stop: 11/02/19 08:59 Last Admin: 10/30/19 08:32 Dose: 450 mg Documented by: Magnesium Hydroxide (Milk Of Magnesia) 30 ml PO DAILY PRN PRN Reason: Constipation Stop: 11/02/19 08:46 Paliperidone Palmitate (Invega Sustenna) 234 mg IM Q28D@0900 [facility] Stop: 11/14/19 10:59 Last Admin: 10/15/19 11:32 Dose: 234 mg Documented by: Simvastatin (Zocor) 10 mg PO HS CLARISA Stop: 11/02/19 21:59 Last Admin: 10/29/19 21:25 Dose: 10 mg Documented by: Sodium Chloride ([place] Nasal) 1 - 2 sprays NA PRN PRN PRN Reason: Nasal Dryness/Congestion Stop: 11/02/19 08:46 Mental Health & Subst Abuse Tx Psychiatrist Name of Psychiatrist: . Psychiatrist's Phone Number: . Date of Appointment with Psychiatrist: 09/14/19 Time of Appointment with Psychiatrist: . Psychiatric Appointment Comment: . Therapist Name of Therapist: . Active Directory Systems Administrator Name of Active Directory Systems Administrator: [employer] - Lizzy Pandey Phone Number for Active Directory Systems Administrator: [phone] Post Discharge Appointments Primary Care Physician Name Of Family Doctor: [facility] Primary Care Provider Appointment Comment: [id number], [address], [place] [address]
[2019-10-30] MEDS: SIMVASTATIN 10 MG TAB PO SCH (21:16)
--- NOTE | 2019-10-31 08:28 | Psychiatric Progress Note ---
Date of Service October 31, 2019 Impression / Recommendations Impression 63-year-old Azerbaijani female with schizoaffective disorder bipolar type admitted on a 302 commitment 4 days after being discharged from this unit on 08/29 after a 27-day hospitalization. She was discharged on a 304 IOC, and returned to the ER later that same day, after police were called due to bizarre behavior at a local grocery store, and was again discharged. Readmitted several days later with psychotic symptoms including paranoia, delusions of persecution (that people were trying to poison/harm her), refusing to eat with hypokalemia, homelessness, delusions that she owns a home, and inability to provide for her own basic needs. Additionally, family members who petitioned reported she made suicidal statements and walked into traffic, and reported delusions that her son had stabbed her in her intestines were hanging out. They also reported she had been noncompliant with oral psychotropic medications, and although her case folder assisted her to fill these on the day of discharge, she did not bring them into the hospital with her and says she does not know where they are. She has repeatedly demonstrated complete inability to provide for her own basic needs outside of the hospital, including health, welfare, jail, food, and safety. Inpatient treatment is medically necessary due to the severity of her symptoms and risk for suicide if discharged. She is now on a 304 involuntary commitment, has been started on Invega Sustenna, and has been referred to the [facility] long-term inpatient treatment. Referral was made on 09/07/2019, received update on 10/12/2019 that patient is officially on the waitlist. Bed date of 11/09/2019 was provided to our team on 10/25/2019. Pt updated with this information. Patient isolative in her room but remains delusional with believes that she has a home in [place] she can return to, and therefore continues to be uncooperative with appropriate discharge planning and is not demonstrating ability to tolerate community re-entry. (1) Schizoaffective disorder, bipolar type: 09/03/19 -The patient has been admitted to the locked, secured behavioral health unit and has been placed in special observation room. She is also being monitored with close observations and every 15-minute direct observation. When more stable she will be actively encouraged to participate in individual, group, and activity therapies. We will also attempt to involve the family if the patient permits us to and if they agree. - Resuming medications as was rx'd at time of discharge on 08/29 including po Invega, lithium, and Sustenna. 09/03 -continue current medications, patient is taking them. -File for 306 conversion hearing to be held 09/06/2019. She will likely need referral to the [facility] hospital due to the need for long-term inpatient treatment. -Reviewed FLP and FG from recent hospitalization 08/07/2019: Cholesterol 221, glucose 109, other values within normal limits. -Attempt to involve family is able; son-in-law Poli is petitioner and was involved in hospitalization so we will ask staff to contact him for collateral information and to determine the family's ability to assist with discharge planning and housing. She has very limited supports in the community and if they are unable to assist her with housing and care, she will likely require long-term hospitalization. -Continue private room for psychosis. 09/04 - Continue current medication regimen - patient has been compliant with medications in this structured environment - 306 conversion hearing scheduled for 09/05 - Meeting with case folder today to discuss treatment options and continue attempts to build rapport - Referral to [facility] is being recommended at this time has patient has repeatedly demonstrated an inability to care for self and provide for basic needs without the support of a structured psychiatric setting. - EKG (WNL). PPD was refused by patient - CXR ordered 09/05 -306 hearing held and patient converted to a 304 involuntary commitment. -Referred to [facility] for long-term inpatient treatment, as patient is severely ill and unable to provide for her own basic needs as a result of her mental illness, and treatment for 27 days on our acute unit was insufficient for successful transition to the community. She was at [facility] for 4 months within the past year, and did respond to treatment there, so returned to the [facility] hospital as recommended for long-term treatment of SPMI. -EKG and chest x-ray completed for state hospital referral. 09/06 - Continue current medication regimen - Referral to [facility] is being prepared, approval was reportedly received from the [facility] - Ongoing attempt to build rapport with psychiatric case folder 09/07 - 09/09 - Continue current medication regimen - Referral sent to [facility] on 09/07/2019 for recommended long- term psychiatric hospitalization based on chronic medication/treatment non- compliance and repeated demonstration of inability to care for self outside of a structured psychiatric setting. - Pt was informed of [facility] referral today during encounter 09/10 - Continue current medication regimen - [facility] referral sent on 09/07/2019 - requesting updates regarding when case is anticipated to be reviewed and ensure information was received - Pt continues to demand to leave, unable to appreciated the severity of her condition. Ongoing concern related to patient's repeated demonstration of inability to care for self outside of a structured psychiatric setting. 09/11 - Continue current medication regimen - Awaiting acceptance at [facility]. Ongoing concern related to patient's repeated demonstration of inability to care for self outside of a structured psychiatric setting. 09/12 - 09/14 - Pt due for next injection of Invega Sustenna 234mg IM on 09/16. Oral supplementation was continued from last hospitalization due to concern for ongoing instability with regard to psychotic symptoms. In preparation for first maintenance dose, will reduce oral supplementation to 3mg qAM and discontinue oral paliperidone on 09/16. Continue lithium 450mg BID unchanged. - Awaiting replay for [facility] regarding referral. Ongoing concern related to patient's repeated demonstration of inability to care for self outside of a structured psychiatric setting. Pt has consistently not been agreeable to diversion planning as a result of fixed delusional beliefs that she has family support, that she has a house to live in, and that she has a lot of money - none of these statements confirmed to be true. 09/15 -Continue treatment plan as previously prescribed 09/16 -now fully converted to invega sustenna. 09/17 - Continue current treatment plan 09/18 - 09/20 - Continue current treatment plan - Confirmed that information from patient's hospitalization at our facility was received by [facility], but case has not yet been reviewed. Still awaiting determination of acceptance status. 09/21 - continue current meds and tx plan. Reinstitute medically necessary private room as hx of aggression, labile mood, poor ability to keep contact precautions with COVID, hx homelessness higher risk category 09/22 - 09/23 - continue current meds and tx plan. 09/24 continue current meds and tx plan. MNPR for now as less paranoid and more visible on unit. 09/25 - Continue current treatment plan - patient remains irritable, paranoid, and delusional - Continue MNPR for paranoia and irritability 09/26 - Continue current treatment plan - Still awaiting response from [facility], 3 weeks after initially referral packet was sent - Pt did reportedly complete her Medical Assistance application. Consider repeat meeting with the county to discuss options for diversion planning; though these remain very limited - As review of patient's treatment plan has historically been very upsetting to the patient, discharge plans have not changed, and the therapeutic value of the review is limited - discussed with patient who did agree to review her treatment plan once a week unless there are changes in the interim. This was confirmed by multiple parties and can be reviewed with greater frequency at which time patient better tolerates the conversation and the therapeutic value is increased. 09/27 - 10/01 - Continue current treatment plan - Still awaiting response from [facility] - Pt is unwilling to consider alternative housing options - she maintains the delusion that she has a penthouse in [place] which has been confirmed to be untrue. 10/02 - Continue as above - medications renewed - Still awaiting response from [facility] - Pt maintains fixed delusions that are interfering significantly with patient's ability to adequately care for herself outside of a structured/supervised setting 10/03 - Continue current medication regimen - 30-day treatment review; treatment plan reviewed with patient who did become angry when length of stay was reviewed. Again became acutely agitated during conversation with provider today - Pt demonstrated very loud yelling, acute agitation, and inability to appropriately communicate frustration. These concerns, in addition to numerous failed attempts at discharge, continue to be evidence as to why patient is not appropriate to be discharged to the community. - Pt is not appropriate to go outside based on episodes of acute agitation and continued delusions which interfere with patient's ability to ensure appropriate behavior 10/04 - 10/05 - Continue current medication regimen - Pt remains inappropriate to go outside - Plan remains for transfer to the [facility] - no response regarding acceptance 10/06 - 10/07 -continue current plan. Amended court order to be obtained Wednesday and sent to the [facility] for acceptance and put patient on their wait list. 10/08 - 10/10 - continue current plan. Discharge plan continues to be placement at [facility] - Pt continues to be inappropriate to go outside based on continued demands for discharge, delusional thought content, and concerns for elopement risk if taken outside the hospital setting 10/11 - Continue current treatment plan - anticipated discharge to [facility] - Did review in detail expectations related to ability to go outside. Expectations were provided to patient, who initially verbalized understanding and repeated them back to this provider. Unfortunately, when expectations were reviewed right before attempt to go outside, patient escalated and demanded discharge and stated she was not going to the [facility]. Based on this behavior, it was deemed patient was not appropriate to go outside today. - Received amended court order to reflect updated 304 commitment to [facility] - following up to formally place patient on the waitlist 10/12 - Continue current medication regimen - pt due for next Invega Sustenna injection on 10/14 - Received confirmation that patient was formally placed on the waitlist at [facility], no available bed date at this time - Pt updated on status of [facility] referral, also updated that we were informed there is another Filipino-speaking patient on the unit she will be admitted to and they have two Filipino-speaking staff/interpreters on service. 10/13 - Continue current medication regimen - maintenance injection of Invega Sustenna due 10/14 - Awaiting bed date at [facility] 10/14 - Continue current treatment plan - Pt tolerated first maintenance injection of Invega Sustenna ordered for today - will be due again on 11/11 for next maintenance injection - Awaiting bed date and transfer to [facility] - Pt continues to be too delusional and agitated to tolerate a visit outside, will continue to assess 10/15 - 10/19 - Continue current treatment plan - Awaiting bed date and transfer to [facility] 10/20--reviewed. Continue current meds and treatment plan pending [facility] bed date. 10/21--reviewed. Continue current meds and treatment plan pending [facility] bed date. 10/22--reviewed. Continue current meds and treatment plan pending [facility] bed date. Will add PPI for presumed reflux/?hiatal hernia hx. Would need to go off unit for abdominal films and currently NAD. 10/23 - Continue current treatment plan. - Awaiting bed date and transfer to [facility] 10/24 - Continue current treatment plan - Received update that patient will be accepted to [facility] with a bed date of 11/09/2019. - Pt updated about discharge timeline and denied questions 10/25 - Continue current treatment plan - Pt remains delusional - recently mentioning that she has an octopus in her stomach, placed there by a man who lives in [place] - Discharge to [facility] is anticipated for 11/09/201910/26 - Continue current treatment plan 10/27 -continue current treatment plan and continue gentle reality testing rajani regarding discharge plans - Discharge to [facility] is anticipated for 11/09/201910/28 pt stating in positive manner will be discharged to another hospital on 11/08 10/29 - 10/30 - Continue current treatment plan - Discharge to [facility] anticipated for 11/09/2019 (2) Noncompliance with medication regimen: 09/02 - Unable to clarify if pt has been taking her medications regularly in the days since discharge. She at first indicated that she was not then in dicated the medications arein a bag of hers but did not indicate actually taking them. The patient also claims to not recall the names of any of her medications and reports that she does not have the conditions for which her known medications are clearly intended. Possible cognitive impairments. might be impacting medication compliance. language impairments with pt not speaking Botswanan impacting compliance concerns. -The patient's underlying psychiatric condition will be actively treated. It is hoped that with treatment we will be able to improve medication compliance and also address aspects that impact compliance and improve this with appropriate interventions. CANTOR form of Invega to be continued at this time, next dose not due for another 2 weeks. Pt took meds this morning that were offered to her but given her extensive non compliance prior to, during and seeming after recent admission and lack of insight to her dx and presentation and indicating that recent hospitalization was quite helpful for her and her indicating wanting to continue her medications as was rx' at end of recent [facility] admission and were instructed to take at that discharge. I am in favor of medication over objection if pt objects to taking her medication during the course of this admission or if it is determined that pt is checking or not actually taking her medications. 10/16 - Pt has continued to tolerate Invega Sustenna maintenance injections. Last received injection on 10/15/2019, due for next injections of 234mg IM on 11/11 (3) Homeless: 09/03/19 -In the past, the patient has lived with family members. However, this is clearly not an option at the present time. The context is that the patient reportedly was in [facility] for approximately a year because of her making terroristic threats against the family. While it does seem clear that the family wants to help protect her, they are unable to safely provide jail. Given the patient's history of neglect of self-care, medication nonadherence, and possible cognitive deficits we are going to investigate structured residential programs as part of our discharge planning. 09/03 -patient has consistently refused assistance with housing, insisting that she has a house in [place], although has not been able to provide an address and her family states this is not true. 09/06 - Patient's grandson called unit yesterday to provide additional information, stating the patient has been homeless for quite some time and there is no valid address for the patient 09/29 pt remains delusional about having a home and is agitated if this is approached or challenged in anyway 09/30 did not discuss further today as this is a point of delusion and been shown to be refractory to challenging in anyway (4) Involuntary commitment: 09/03 -patient on a 304 IOC, readmitted on a 302. We will file for a 306 conversion hearing. 09/04 - 306 hearing scheduled for 09/05; anticipate referral to [facility]. 09/05 -306 conversion granted, now here on a 304 involuntary commitment. 09/07 - Referral packet sent to [facility] on 09/06 (5) Nicotine abuse: 09/02 - Nicotine Patch 7mg topical daily resumed, and smoking cessation to be done when pt is in more apposite mental state to do so Inventory Assets Strengths: concerned family members, pleasant on approach Needs: stable housing, improved compliance to medication and treatment plan. Risk Factors Assessment Male: No : No Do You Have Access To A Gun?: No Health Problems: No Mental Health Diagnoses: Yes Substance Use Disorders: No Previous Attempt: Yes (Per family, patient denies) Previous Psychiatric Hospitalization: Yes Hopelessness: No Smoker: Yes Protective Factors Assessment : No Responsible for Young Children: No Employed: No Stable Relationships: No Supportive Family: No Good Rapport with Provider: No Interval History Identifying Information ANDREW CYR is a 64-year-old F who currently is homeless in [facility], has a history of schizoaffective disorder, bipolar type, and was admitted on 06/14/20 05:42 on a 302 involuntary commitment for psychosis, suicidal ideation, inability to provide for basic needs, and medication noncompliance. Chief Complaint "Good." Review of Systems Notes Constitutional: reports feeling as though her face is swelling, feels "weird" HEENT: denies difficulty swallow, sensation of throat narrowing Cardiovascular: denied Respiratory: denied, denied difficult breathing Gastrointestinal: denied, denied nausea and abdominal pain Neurological: denied Psychiatric: denies symptoms other than stated above Total of at least 10 systems reviewed, pertinent positives as above and in HPI. Sleep Information Total Hours of Sleep: 4.75 Sleep Comments: ate snacks at 0145-awake for a little while after then back to sleep. Meal Information Percent Meal Consumed - Breakfast: 100 Percent Meal Consumed - Lunch: 100 Percent Meal Consumed - Dinner: 100 Nutrition Comment: documented from the pt. meal record Subjective Subjective Patient was seen & assessed and interval progress reviewed with nursing and social work. Staff report there have been no significant changes in patient's presentation. She has been attending our community meeting group with more regularity, and rated her mood a 7/10 and "kanchan" last evening. Pt was seen today to assess progress since admission. Filipino-Botswanan conversation was conducted with assistance from [employer] interpretive service - Earline #[id number]. Pt reports that she is "good." This provider had observed today that the patient spent more time in her room sleeping than usual and that she appears troubled or deep in thought during brief encounters in the hallway. Pt was asked if she had something on her mind. Pt stated "no, my face feels weird. I don't know what happened. It's nothing, it just feels like it's swollen or something." Pt states this sensation began right after lunch. This provider asked questions to better understand patient's symptoms, and rule out any concerns. Pt denied abdominal pain/discomfort, she denied throat swelling or difficulty breathing, or other symptoms consistent with an allergic reaction. Patient's face also did to appear visually to be any different than usual. The more this provider inquired about the patient's complaint, the more irritable she became. Pt event sandy stated, "no, no, it's nothing. It just feels swollen. Just leave it like that, I don't want anything. I'm in a bad mood." Pt was asked if there was something this provider could help with or something she would like to talk about. She then stated "No, I have nothing else to say." Pt denied other needs at this time and requested to end our conversation. Physical Exam Psychiatric Orientation: alert and + guarded (superficially cooperative ) Apperance: appropriately dressed (but has a large stain on her shirt from something she recently spilled) and + disheveled (hair and clothing appearing unkempt) Eye Contact: + fair eye contact Motor Behavior: steady gait and station and no abnormal motor movements Speech: normal rate/rhythm/volume of speech Affect: + blunted affect, + labile affect and + irritable affect Mood: "I'm in a bad mood" - but would not elaborate Thought Process: + concrete thought process Thought Content: + paranoid, + delusions (underlying delusions are ongoing, though not focus of conversation today) and + persecution Cognition: attention grossly intact and language grossly intact Insight: + impaired insight Judgement: + impaired judgement Vital Signs (Past 24 Hours) Last Vital Signs Temp 36.8 C 10/31/19 06:54 Pulse 81 10/31/19 06:54 Resp 18 10/31/19 06:54 BP 139/81 10/31/19 06:54 Pulse Ox 95 09/03/19 05:47 Inspection of patient's face: Normocephalic, atraumatic - no visible swelling or deformity, no bruising or erythema observed. Results & Data ([facility]) Current Inpatient Medications Current Inpatient Medications: Current Inpatient Medications Acetaminophen (Tylenol) 650 mg PO Q4H PRN PRN Reason: Headache or Minor Fever Stop: 11/02/19 08:46 Last Admin: 10/22/19 18:54 Dose: 650 mg Documented by: Al Hydrox/Mg Hydrox/Simethicone (Maalox) 30 ml PO Q4H PRN PRN Reason: GI Upset Stop: 11/02/19 08:46 Bismuth Subsalicylate (Kaopectate) 15 ml PO PRN PRN PRN Reason: Loose Stool Stop: 11/02/19 08:46 Docusate Sodium (Colace) 100 mg PO BID [facility] Stop: 11/02/19 20:59 Last Admin: 10/30/19 21:16 Dose: 100 mg Documented by: Haloperidol (Haldol) 5 mg PO Q6H PRN PRN Reason: Agitation/Psychosis Stop: 11/04/19 15:13 Last Admin: 10/19/19 18:27 Dose: 5 mg Documented by: Hydroxyzine HCl (Vistaril) 50 mg PO HSZ PRN PRN Reason: Insomnia Stop: 11/02/19 08:46 Hydroxyzine HCl (Vistaril) 25 mg PO Q4H PRN PRN Reason: Anxiety Stop: 11/02/19 08:46 Levothyroxine Sodium (Synthroid) 75 mcg PO DAILYBB CL[facility]ISA Stop: 11/02/19 07:59 Last Admin: 10/30/19 08:32 Dose: 75 mcg Documented by: [place] Carbonate (Eskalith) 450 mg PO BID [facility] Stop: 11/02/19 08:59 Last Admin: 10/30/19 21:16 Dose: 450 mg Documented by: Magnesium Hydroxide (Milk Of Magnesia) 30 ml PO DAILY PRN PRN Reason: Constipation Stop: 11/02/19 08:46 Paliperidone Palmitate (Invega Sustenna) 234 mg IM Q28D@0900 [facility] Stop: 11/14/19 10:59 Last Admin: 10/15/19 11:32 Dose: 234 mg Documented by: Simvastatin (Zocor) 10 mg PO HS CL[facility]ISA Stop: 11/02/19 21:59 Last Admin: 10/30/19 21:16 Dose: 10 mg Documented by: Sodium Chloride ([place] Nasal) 1 - 2 sprays NA PRN PRN PRN Reason: Nasal Dryness/Congestion Stop: 11/02/19 08:46 Mental Health & Subst Abuse Tx Psychiatrist Name of Psychiatrist: . Psychiatrist's Phone Number: . Date of Appointment with Psychiatrist: 09/14/19 Time of Appointment with Psychiatrist: . Psychiatric Appointment Comment: . Therapist Name of Therapist: . [facility] Name of [facility]: [facility] Lizzy Pandey Phone Number for Stores [facility]: [phone] Post Discharge Appointments Primary Care Physician Name Of Family Doctor: [facility] Primary Care Provider Appointment Comment: [address], [address], [place] [address]
[2019-10-31] MEDS: LEVOTHYROXINE SODIUM 75 MCG TABLET PO SCH (08:30)
[2019-10-31] MEDS: LITHIUM CARBONATE 450 MG TABCR PO SCH ×2 (08:30→21:01)
[2019-10-31] MEDS: DOCUSATE SODIUM 100 MG CAP PO SCH ×2 (08:30→21:01)
[2019-10-31] MEDS: SIMVASTATIN 10 MG TAB PO SCH (21:01)
[2019-11-01] MEDS: LITHIUM CARBONATE 450 MG TABCR PO SCH ×2 (08:25→21:08)
[2019-11-01] MEDS: DOCUSATE SODIUM 100 MG CAP PO SCH ×2 (08:25→21:08)
[2019-11-01] MEDS: LEVOTHYROXINE SODIUM 75 MCG TABLET PO SCH (08:25)
--- NOTE | 2019-11-01 10:22 | Psychiatric Progress Note ---
Date of Service November 01, 2019 Impression / Recommendations Impression 63-year-old [place] female with schizoaffective disorder bipolar type admitted on a 302 commitment 4 days after being discharged from this unit on 08/29 after a 27-day hospitalization. She was discharged on a 304 IOC, and returned to the ER later that same day, after police were called due to bizarre behavior at a local grocery store, and was again discharged. Readmitted several days later with psychotic symptoms including paranoia, delusions of persecution (that people were trying to poison/harm her), refusing to eat with hypokalemia, homelessness, delusions that she owns a home, and inability to provide for her own basic needs. Additionally, family members who petitioned reported she made suicidal statements and walked into traffic, and reported delusions that her son had stabbed her in her intestines were hanging out. They also reported she had been noncompliant with oral psychotropic medications, and although her bottle caser assisted her to fill these on the day of discharge, she did not bring them into the hospital with her and says she does not know where they are. She has repeatedly demonstrated complete inability to provide for her own basic needs outside of the hospital, including health, welfare, longterm, food, and safety. Inpatient treatment is medically necessary due to the severity of her symptoms and risk for suicide if discharged. She is now on a 304 involuntary commitment, has been started on Invega Sustenna, and has been referred to the [facility] long-term inpatient treatment. Referral was made on 09/07/2019, received update on 10/12/2019 that patient is officially on the waitlist. Bed date of 11/09/2019 was provided to our team on 10/25/2019. Pt updated with this information. Patient isolative in her room but remains delusional with believes that she has a home in [place] she can return to, and therefore continues to be uncooperative with appropriate discharge planning and is not demonstrating ability to tolerate community re-entry. (1) Schizoaffective disorder, bipolar type: 09/03/19 -The patient has been admitted to the locked, secured behavioral health unit and has been placed in special observation room. She is also being monitored with close observations and every 15-minute direct observation. When more stable she will be actively encouraged to participate in individual, group, and activity therapies. We will also attempt to involve the family if the patient permits us to and if they agree. - Resuming medications as was rx'd at time of discharge on 08/29 including po Invega, lithium, and Sustenna. 09/03 -continue current medications, patient is taking them. -File for 306 conversion hearing to be held 09/06/2019. She will likely need referral to the [facility] due to the need for long-term inpatient treatment. -Reviewed FLP and FG from recent hospitalization 08/07/2019: Cholesterol 221, glucose 109, other values within normal limits. -Attempt to involve family is able; son-in-law Poli is petitioner and was involved in hospitalization so we will ask staff to contact him for collateral information and to determine the family's ability to assist with discharge planning and housing. She has very limited supports in the community and if they are unable to assist her with housing and care, she will likely require long-term hospitalization. -Continue private room for psychosis. 09/04 - Continue current medication regimen - patient has been compliant with medications in this structured environment - 306 conversion hearing scheduled for 09/05 - Meeting with bottle caser today to discuss treatment options and continue attempts to build rapport - Referral to [facility] is being recommended at this time has patient has repeatedly demonstrated an inability to care for self and provide for basic needs without the support of a structured psychiatric setting. - EKG (WNL). PPD was refused by patient - CXR ordered 09/05 -306 hearing held and patient converted to a 304 involuntary commitment. -Referred to [facility] for long-term inpatient treatment, as patient is severely ill and unable to provide for her own basic needs as a result of her mental illness, and treatment for 27 days on our acute unit was insufficient for successful transition to the community. She was at [facility] for 4 months within the past year, and did respond to treatment there, so returned to the [facility] as recommended for long-term treatment of SPMI. -EKG and chest x-ray completed for state hospital referral. 09/06 - Continue current medication regimen - Referral to [facility] is being prepared, approval was reportedly received [facility] - Ongoing attempt to build rapport with psychiatric bottle caser 09/07 - 09/09 - Continue current medication regimen - Referral sent to [facility] on 09/07/2019 for recommended long- term psychiatric hospitalization based on chronic medication/treatment non- compliance and repeated demonstration of inability to care for self outside of a structured psychiatric setting. - Pt was informed of [facility] referral today during encounter 09/10 - Continue current medication regimen - [facility] referral sent on 09/07/2019 - requesting updates regarding when case is anticipated to be reviewed and ensure information was received - Pt continues to demand to leave, unable to appreciated the severity of her condition. Ongoing concern related to patient's repeated demonstration of inability to care for self outside of a structured psychiatric setting. 09/11 - Continue current medication regimen - Awaiting acceptance at [facility]. Ongoing concern related to patient's repeated demonstration of inability to care for self outside of a structured psychiatric setting. 09/12 - 09/14 - Pt due for next injection of Invega Sustenna 234mg IM on 09/16. Oral supplementation was continued from last hospitalization due to concern for ongoing instability with regard to psychotic symptoms. In preparation for first maintenance dose, will reduce oral supplementation to 3mg qAM and discontinue oral paliperidone on 09/16. Continue lithium 450mg BID unchanged. - Awaiting replay for [facility] regarding referral. Ongoing concern related to patient's repeated demonstration of inability to care for self outside of a structured psychiatric setting. Pt has consistently not been agreeable to diversion planning as a result of fixed delusional beliefs that she has family support, that she has a house to live in, and that she has a lot of money - none of these statements confirmed to be true. 09/15 -Continue treatment plan as previously prescribed 09/16 -now fully converted to invega sustenna. 09/17 - Continue current treatment plan 09/18 - 09/20 - Continue current treatment plan - Confirmed that information from patient's hospitalization at our facility was received by [facility], but case has not yet been reviewed. Still awaiting determination of acceptance status. 09/21 - continue current meds and tx plan. Reinstitute medically necessary private room as hx of aggression, labile mood, poor ability to keep contact precautions with COVID, hx homelessness higher risk category 09/22 - 09/23 - continue current meds and tx plan. 09/24 continue current meds and tx plan. MNPR for now as less paranoid and more visible on unit. 09/25 - Continue current treatment plan - patient remains irritable, paranoid, and delusional - Continue MNPR for paranoia and irritability 09/26 - Continue current treatment plan - Still awaiting response from [facility], 3 weeks after initially referral packet was sent - Pt did reportedly complete her Medical Assistance application. Consider repeat meeting with the county to discuss options for diversion planning; though these remain very limited - As review of patient's treatment plan has historically been very upsetting to the patient, discharge plans have not changed, and the therapeutic value of the review is limited - discussed with patient who did agree to review her treatment plan once a week unless there are changes in the interim. This was confirmed by multiple parties and can be reviewed with greater frequency at which time patient better tolerates the conversation and the therapeutic value is increased. 09/27 - 10/01 - Continue current treatment plan - Still awaiting response from [facility] - Pt is unwilling to consider alternative housing options - she maintains the delusion that she has a penthouse in [place] which has been confirmed to be untrue. 10/02 - Continue as above - medications renewed - Still awaiting response from [facility] - Pt maintains fixed delusions that are interfering significantly with patient's ability to adequately care for herself outside of a structured/supervised setting 10/03 - Continue current medication regimen - 30-day treatment review; treatment plan reviewed with patient who did become angry when length of stay was reviewed. Again became acutely agitated during conversation with provider today - Pt demonstrated very loud yelling, acute agitation, and inability to appropriately communicate frustration. These concerns, in addition to numerous failed attempts at discharge, continue to be evidence as to why patient is not appropriate to be discharged to the community. - Pt is not appropriate to go outside based on episodes of acute agitation and continued delusions which interfere with patient's ability to ensure appropriate behavior 10/04 - 10/05 - Continue current medication regimen - Pt remains inappropriate to go outside - Plan remains for transfer to the [facility] - no response regarding acceptance 10/06 - 10/07 -continue current plan. Amended court order to be obtained Wednesday and sent to the [facility] for acceptance and put patient on their wait list. 10/08 - 10/10 - continue current plan. Discharge plan continues to be placement at [facility] - Pt continues to be inappropriate to go outside based on continued demands for discharge, delusional thought content, and concerns for elopement risk if taken outside the hospital setting 10/11 - Continue current treatment plan - anticipated discharge to [facility] - Did review in detail expectations related to ability to go outside. Expectations were provided to patient, who initially verbalized understanding and repeated them back to this provider. Unfortunately, when expectations were reviewed right before attempt to go outside, patient escalated and demanded discharge and stated she was not going to the [facility]. Based on this behavior, it was deemed patient was not appropriate to go outside today. - Received amended court order to reflect updated 304 commitment to [facility] - following up to formally place patient on the waitlist 10/12 - Continue current medication regimen - pt due for next Invega Sustenna injection on 10/14 - Received confirmation that patient was formally placed on the waitlist at [facility], no available bed date at this time - Pt updated on status of [facility] referral, also updated that we were informed there is another Turkmen-speaking patient on the unit she will be admitted to and they have two Turkmen-speaking staff/interpreters on service. 10/13 - Continue current medication regimen - maintenance injection of Invega Sustenna due 10/14 - Awaiting bed date at [facility] 10/14 - Continue current treatment plan - Pt tolerated first maintenance injection of Invega Sustenna ordered for today - will be due again on 11/11 for next maintenance injection - Awaiting bed date and transfer to [facility] - Pt continues to be too delusional and agitated to tolerate a visit outside, will continue to assess 10/15 - 10/19 - Continue current treatment plan - Awaiting bed date and transfer to [facility] 10/20--reviewed. Continue current meds and treatment plan pending [facility] bed date. 10/21--reviewed. Continue current meds and treatment plan pending [facility] bed date. 10/22--reviewed. Continue current meds and treatment plan pending [facility] bed date. Will add PPI for presumed reflux/?hiatal hernia hx. Would need to go off unit for abdominal films and currently NAD. 10/23 - Continue current treatment plan. - Awaiting bed date and transfer to [facility] 10/24 - Continue current treatment plan - Received update that patient will be accepted to [facility] with a bed date of 11/09/2019. - Pt updated about discharge timeline and denied questions 10/25 - Continue current treatment plan - Pt remains delusional - recently mentioning that she has an octopus in her stomach, placed there by a man who lives in [place] - Discharge to [facility] is anticipated for 11/09/201910/26 - Continue current treatment plan 10/27 -continue current treatment plan and continue gentle reality testing rajani regarding discharge plans - Discharge to [facility] is anticipated for 11/09/201910/28 pt stating in positive manner will be discharged to another hospital on 11/08 10/29 - 10/31 - Continue current treatment plan - Discharge to [facility] anticipated for 11/09/2019 (2) Noncompliance with medication regimen: 09/02 - Unable to clarify if pt has been taking her medications regularly in the days since discharge. She at first indicated that she was not then in dicated the medications arein a bag of hers but did not indicate actually taking them. The patient also claims to not recall the names of any of her medications and reports that she does not have the conditions for which her known medications are clearly intended. Possible cognitive impairments. might be impacting medication compliance. language impairments with pt not speaking [place]ian impacting compliance concerns. -The patient's underlying psychiatric condition will be actively treated. It is hoped that with treatment we will be able to improve medication compliance and also address aspects that impact compliance and improve this with appropriate interventions. CANTOR form of Invega to be continued at this time, next dose not due for another 2 weeks. Pt took meds this morning that were offered to her but given her extensive non compliance prior to, during and seeming after recent admission and lack of insight to her dx and presentation and indicating that recent hospitalization was quite helpful for her and her indicating wanting to continue her medications as was rx' at end of recent [facility] admission and were instructed to take at that discharge. I am in favor of medication over objection if pt objects to taking her medication during the course of this admission or if it is determined that pt is checking or not actually taking her medications. 10/16 - Pt has continued to tolerate Invega Sustenna maintenance injections. Last received injection on 10/15/2019, due for next injections of 234mg IM on 11/11 (3) Homeless: 09/03/19 -In the past, the patient has lived with family members. However, this is clearly not an option at the present time. The context is that the patient reportedly was in [facility] for approximately a year because of her making terroristic threats against the family. While it does seem clear that the family wants to help protect her, they are unable to safely provide longterm. Given the patient's history of neglect of self-care, medication nonadherence, and possible cognitive deficits we are going to investigate structured residential programs as part of our discharge planning. 09/03 -patient has consistently refused assistance with housing, insisting that she has a house in [place], although has not been able to provide an address and her family states this is not true. 09/06 - Patient's grandson called unit yesterday to provide additional information, stating the patient has been homeless for quite some time and there is no valid address for the patient 09/29 pt remains delusional about having a home and is agitated if this is approached or challenged in anyway 09/30 did not discuss further today as this is a point of delusion and been shown to be refractory to challenging in anyway (4) Involuntary commitment: 09/03 -patient on a 304 IOC, readmitted on a 302. We will file for a 306 conversion hearing. 09/04 - 306 hearing scheduled for 09/05; anticipate referral to [facility]. 09/05 -306 conversion granted, now here on a 304 involuntary commitment. 09/07 - Referral packet sent to [facility] on 09/06 (5) Nicotine abuse: 09/02 - Nicotine Patch 7mg topical daily resumed, and smoking cessation to be done when pt is in more apposite mental state to do so Inventory Assets Strengths: concerned family members, pleasant on approach Needs: stable housing, improved compliance to medication and treatment plan. Risk Factors Assessment Male: No : No Do You Have Access To A Gun?: No Health Problems: No Mental Health Diagnoses: Yes Substance Use Disorders: No Previous Attempt: Yes (Per family, patient denies) Previous Psychiatric Hospitalization: Yes Hopelessness: No Smoker: Yes Protective Factors Assessment : No Responsible for Young Children: No Employed: No Stable Relationships: No Supportive Family: No Good Rapport with Provider: No Interval History Identifying Information ANDREW CYR is a 64-year-old F who currently is homeless in [facility], has a history of schizoaffective disorder, bipolar type, and was admitted on 06/14/20 05:42 on a 302 involuntary commitment for psychosis, suicidal ideation, inability to provide for basic needs, and medication noncompliance. Chief Complaint "Good. Thank you." Review of Systems Notes Constitutional: denied Cardiovascular: denied Respiratory: denied Gastrointestinal: denied Neurological: denied Psychiatric: denies symptoms other than stated above Total of at least 10 systems reviewed, pertinent positives as above and in HPI. Sleep Information Total Hours of Sleep: 7.5 Sleep Comments: pt on q-15 minute checks Meal Information Percent Meal Consumed - Breakfast: 100 Percent Meal Consumed - Lunch: 75 Percent Meal Consumed - Dinner: 100 Nutrition Comment: documented from the pt. meal record Subjective Subjective Patient was seen & assessed and interval progress reviewed with treatment team. Staff report the patient appeared to have a good evening. She attended community meeting last evening, but reportedly appeared paranoid and distracted and left the group before she could provide report on her mood/goals. Pt was seen today to assess progress since admission. Turkmen-[place]ian conversation was conducted with assistance from [employer] interpretive [id number]. Initial part of encounter was held in conjunction with weekly treatment plan review by our recreational therapist. Pt participated in review and verbalized understanding, but declined to sign her treatment plan. Pt then continued conversation with this provider. She reported she is "good. Thank you." Pt continues to deny SI/HI and auditory or visual hallucinations. Observations suggest she has not been speaking to herself in her room as frequently, but some of this is continuing. Pt was asked for an update regarding reports yesterday that she felt her face was swollen. Pt states "No, no problems. I washed my face and it went away." Pt denied other physical concerns at this time. This provider asked the patient if there were any belongings that were not here at the hospital that she would require for the [facility]. Pt initially stated "my daughter knows all about my clothing." Pt was asked if her daughter's name is listed on the Protection From Abuse order, she then inquired about what a PFA is and why it was in place, as well as "who has said this, who has a protection order?" This provider reminded the patient of several previous conversations about the PFA and our inability to contact family members who are listed. Pt continued to seem confused by this conversation. It was suggested that the patient's bottle caser could possibly look into contacting appropriate family members for belongings. Pt then stated "I don't know who is in that order of protection, but when I leave I will go with my and mom and the person who works for me. [My daughter] will be busy with her children, we don't need to bother her. I will be leaving the hospital with my , my mother, and my employee to go home." Pt then stood up and began walking away - giving the impression she was finished with our conversation. This provider did remind the patient that she will be discharged to [facility] and not to her family. Pt simply stated "ok, good. Goodbye." Physical Exam Psychiatric Orientation: alert and + guarded (superifically cooperative ) Apperance: appropriately dressed (casually, in t-shirt and leggings) and + disheveled Eye Contact: + fair eye contact Motor Behavior: steady gait and station and no abnormal motor movements Speech: normal rate/rhythm/volume of speech Affect: + labile affect (going from blunted affect to irritable affect rather suddenly ) Mood: no depressed mood ("Good") Thought Process: + concrete thought process; + thought process not linear or logical Thought Content: + paranoid, + delusions and + persecution Suicidal Thoughts: denies suicidal thoughts Homicidal Thoughts: denies homicidal thoughts Hallucinations: pt denies continues to be observed to be talking to herself in her room, possibly responding to internal stimuli Cognition: language grossly intact; + remote memory not intact and + attention not intact Insight: + severely impaired insight Judgement: + severely impaired judgement Vital Signs (Past 24 Hours) Last Vital Signs Temp 36.6 C 11/01/19 06:56 Pulse 76 11/01/19 06:57 Resp 18 11/01/19 06:56 BP 138/82 11/01/19 06:57 Pulse Ox 95 09/03/19 05:47 . Results & Data ([facility]) Current Inpatient Medications Current Inpatient Medications: Current Inpatient Medications Acetaminophen (Tylenol) 650 mg PO Q4H PRN PRN Reason: Headache or Minor Fever Stop: 11/02/19 08:46 Last Admin: 10/22/19 18:54 Dose: 650 mg Documented by: Al Hydrox/Mg Hydrox/Simethicone (Maalox) 30 ml PO Q4H PRN PRN Reason: GI Upset Stop: 11/02/19 08:46 Bismuth Subsalicylate (Kaopectate) 15 ml PO PRN PRN PRN Reason: Loose Stool Stop: 11/02/19 08:46 Docusate Sodium (Colace) 100 mg PO BID [facility] Stop: 11/02/19 20:59 Last Admin: 11/01/19 08:25 Dose: 100 mg Documented by: Haloperidol (Haldol) 5 mg PO Q6H PRN PRN Reason: Agitation/Psychosis Stop: 11/04/19 15:13 Last Admin: 10/19/19 18:27 Dose: 5 mg Documented by: Hydroxyzine HCl (Vistaril) 50 mg PO HSZ PRN PRN Reason: Insomnia Stop: 11/02/19 08:46 Hydroxyzine HCl (Vistaril) 25 mg PO Q4H PRN PRN Reason: Anxiety Stop: 11/02/19 08:46 Levothyroxine Sodium (Synthroid) 75 mcg PO DAILYBB [facility] Stop: 11/02/19 07:59 Last Admin: 11/01/19 08:25 Dose: 75 mcg Documented by: [place] Carbonate (Eskalith) 450 mg PO BID [facility] Stop: 11/02/19 08:59 Last Admin: 11/01/19 08:25 Dose: 450 mg Documented by: Magnesium Hydroxide (Milk Of Magnesia) 30 ml PO DAILY PRN PRN Reason: Constipation Stop: 11/02/19 08:46 Paliperidone Palmitate (Paliperidone Palmitate 234 Mg/1.5 Ml Syr) 234 mg IM [id number]@0900 [facility] Stop: 12/12/19 10:59 Simvastatin (Zocor) 10 mg PO HS [facility] Stop: 11/02/19 21:59 Last Admin: 10/31/19 21:01 Dose: 10 mg Documented by: Sodium Chloride ([place] Nasal) 1 - 2 sprays NA PRN PRN PRN Reason: Nasal Dryness/Congestion Stop: 11/02/19 08:46 Mental Health & Subst Abuse Tx Psychiatrist Name of Psychiatrist: . Psychiatrist's Phone Number: . Date of Appointment with Psychiatrist: 09/14/19 Time of Appointment with Psychiatrist: . Psychiatric Appointment Comment: . Therapist Name of Therapist: . Slab Conditioner Supervisor Name of Slab Conditioner Supervisor: [facility] - Lizzy Shapira Phone Number for Slab Conditioner Supervisor: [phone] Post Discharge Appointments Primary Care Physician Name Of Family Doctor: [facility] Primary Care Provider Appointment Comment: [id number] [facility], [address], [place] [address]
[2019-11-01] MEDS: SIMVASTATIN 10 MG TAB PO SCH (21:09)
[2019-11-02] MEDS ORDERED: ALUMINUM/MAGNESIUM SUSP 30 ML UDC PO PRN (07:56)
[2019-11-02] MEDS ORDERED: haloperidoL 5 MG TAB PO PRN (07:56)
[2019-11-02] MEDS ORDERED: SODIUM CHLORIDE 0.65% NA SOLN 45 ML (OCEAN) PRN (07:56)
[2019-11-02] MEDS ORDERED: ACETAMINOPHEN 325 MG TAB PO PRN (07:56)
[2019-11-02] MEDS ORDERED: MAGNESIUM HYDROXIDE SUSP 30 ML UDC PO PRN (07:56)
[2019-11-02] MEDS ORDERED: BISMUTH SUBSALICYLATE PER ML OMNICELL CHARGE PO PRN (07:56)
[2019-11-02] MEDS: DOCUSATE SODIUM 100 MG CAP PO SCH ×3 (08:42→21:02)
[2019-11-02] MEDS: LEVOTHYROXINE SODIUM 75 MCG TABLET PO SCH (08:43)
[2019-11-02] MEDS: LITHIUM CARBONATE 450 MG TABCR PO SCH ×2 (08:47→21:03)
--- NOTE | 2019-11-02 08:50 | Psychiatric Progress Note ---
Date of Service November 02, 2019 Impression / Recommendations Impression 63-year-old Norwegian female with schizoaffective disorder bipolar type admitted on a 302 commitment 4 days after being discharged from this unit on 08/29 after a 27-day hospitalization. She was discharged on a 304 IOC, and returned to the ER later that same day, after police were called due to bizarre behavior at a local grocery store, and was again discharged. Readmitted several days later with psychotic symptoms including paranoia, delusions of persecution (that people were trying to poison/harm her), refusing to eat with hypokalemia, homelessness, delusions that she owns a home, and inability to provide for her own basic needs. Additionally, family members who petitioned reported she made suicidal statements and walked into traffic, and reported delusions that her son had stabbed her in her intestines were hanging out. They also reported she had been noncompliant with oral psychotropic medications, and although her machine adjuster leader case trim assisted her to fill these on the day of discharge, she did not bring them into the hospital with her and says she does not know where they are. She has repeatedly demonstrated complete inability to provide for her own basic needs outside of the hospital, including health, welfare, nursing home, food, and safety. Inpatient treatment is medically necessary due to the severity of her symptoms and risk for suicide if discharged. She is now on a 304 involuntary commitment, has been started on Invega Sustenna, and has been referred to the [facility] long-term inpatient treatment. Referral was made on 09/07/2019, received update on 10/12/2019 that patient is officially on the waitlist. Bed date of 11/09/2019 was provided to our team on 10/25/2019. Pt updated with this information. Patient isolative in her room but remains delusional with believes that she has a home in [place] she can return to, and therefore continues to be uncooperative with appropriate discharge planning and is not demonstrating ability to tolerate community re-entry. (1) Schizoaffective disorder, bipolar type: 09/03/19 -The patient has been admitted to the locked, secured behavioral health unit and has been placed in special observation room. She is also being monitored with close observations and every 15-minute direct observation. When more stable she will be actively encouraged to participate in individual, group, and activity therapies. We will also attempt to involve the family if the patient permits us to and if they agree. - Resuming medications as was rx'd at time of discharge on 08/29 including po Invega, lithium, and Sustenna. 09/03 -continue current medications, patient is taking them. -File for 306 conversion hearing to be held 09/06/2019. She will likely need referral to the [facility] due to the need for long-term inpatient treatment. -Reviewed FLP and FG from recent hospitalization 08/07/2019: Cholesterol 221, glucose 109, other values within normal limits. -Attempt to involve family is able; son-in-law Poli is petitioner and was involved in hospitalization so we will ask staff to contact him for collateral information and to determine the family's ability to assist with discharge planning and housing. She has very limited supports in the community and if they are unable to assist her with housing and care, she will likely require long-term hospitalization. -Continue private room for psychosis. 09/04 - Continue current medication regimen - patient has been compliant with medications in this structured environment - 306 conversion hearing scheduled for 09/05 - Meeting with machine adjuster leader case trim today to discuss treatment options and continue attempts to build rapport - Referral to [facility] is being recommended at this time has patient has repeatedly demonstrated an inability to care for self and provide for basic needs without the support of a structured psychiatric setting. - EKG (WNL). PPD was refused by patient - CXR ordered 09/05 -306 hearing held and patient converted to a 304 involuntary commitment. -Referred to [facility] for long-term inpatient treatment, as patient is severely ill and unable to provide for her own basic needs as a result of her mental illness, and treatment for 27 days on our acute unit was insufficient for successful transition to the community. She was at [facility] for 4 months within the past year, and did respond to treatment there, so returned to the [facility] hospital as recommended for long-term treatment of SPMI. -EKG and chest x-ray completed for state hospital referral. 09/06 - Continue current medication regimen - Referral to [facility] is being prepared, approval was reportedly received from the [facility] - Ongoing attempt to build rapport with psychiatric machine adjuster leader case trim 09/07 - 09/09 - Continue current medication regimen - Referral sent to [facility] on 09/07/2019 for recommended long- term psychiatric hospitalization based on chronic medication/treatment non- compliance and repeated demonstration of inability to care for self outside of a structured psychiatric setting. - Pt was informed of [facility] referral today during encounter 09/10 - Continue current medication regimen - [facility] referral sent on 09/07/2019 - requesting updates regarding when case is anticipated to be reviewed and ensure information was received - Pt continues to demand to leave, unable to appreciated the severity of her condition. Ongoing concern related to patient's repeated demonstration of inability to care for self outside of a structured psychiatric setting. 09/11 - Continue current medication regimen - Awaiting acceptance at [facility]. Ongoing concern related to patient's repeated demonstration of inability to care for self outside of a structured psychiatric setting. 09/12 - 09/14 - Pt due for next injection of Invega Sustenna 234mg IM on 09/16. Oral supplementation was continued from last hospitalization due to concern for ongoing instability with regard to psychotic symptoms. In preparation for first maintenance dose, will reduce oral supplementation to 3mg qAM and discontinue oral paliperidone on 09/16. Continue lithium 450mg BID unchanged. - Awaiting replay for [facility] regarding referral. Ongoing concern related to patient's repeated demonstration of inability to care for self outside of a structured psychiatric setting. Pt has consistently not been agreeable to diversion planning as a result of fixed delusional beliefs that she has family support, that she has a house to live in, and that she has a lot of money - none of these statements confirmed to be true. 09/15 -Continue treatment plan as previously prescribed 09/16 -now fully converted to invega sustenna. 09/17 - Continue current treatment plan 09/18 - 09/20 - Continue current treatment plan - Confirmed that information from patient's hospitalization at our facility was received by [facility], but case has not yet been reviewed. Still awaiting determination of acceptance status. 09/21 - continue current meds and tx plan. Reinstitute medically necessary private room as hx of aggression, labile mood, poor ability to keep contact precautions with COVID, hx homelessness higher risk category 09/22 - 09/23 - continue current meds and tx plan. 09/24 continue current meds and tx plan. MNPR for now as less paranoid and more visible on unit. 09/25 - Continue current treatment plan - patient remains irritable, paranoid, and delusional - Continue MNPR for paranoia and irritability 09/26 - Continue current treatment plan - Still awaiting response from [facility], 3 weeks after initially referral packet was sent - Pt did reportedly complete her Medical Assistance application. Consider repeat meeting with the county to discuss options for diversion planning; though these remain very limited - As review of patient's treatment plan has historically been very upsetting to the patient, discharge plans have not changed, and the therapeutic value of the review is limited - discussed with patient who did agree to review her treatment plan once a week unless there are changes in the interim. This was confirmed by multiple parties and can be reviewed with greater frequency at which time patient better tolerates the conversation and the therapeutic value is increased. 09/27 - 10/01 - Continue current treatment plan - Still awaiting response from [facility] - Pt is unwilling to consider alternative housing options - she maintains the delusion that she has a penthouse in [place] which has been confirmed to be untrue. 10/02 - Continue as above - medications renewed - Still awaiting response from [facility] - Pt maintains fixed delusions that are interfering significantly with patient's ability to adequately care for herself outside of a structured/supervised setting 10/03 - Continue current medication regimen - 30-day treatment review; treatment plan reviewed with patient who did become angry when length of stay was reviewed. Again became acutely agitated during conversation with provider today - Pt demonstrated very loud yelling, acute agitation, and inability to appropriately communicate frustration. These concerns, in addition to numerous failed attempts at discharge, continue to be evidence as to why patient is not appropriate to be discharged to the community. - Pt is not appropriate to go outside based on episodes of acute agitation and continued delusions which interfere with patient's ability to ensure appropriate behavior 10/04 - 10/05 - Continue current medication regimen - Pt remains inappropriate to go outside - Plan remains for transfer to the [facility] - no response regarding acceptance 10/06 - 10/07 -continue current plan. Amended court order to be obtained Wednesday and sent to the [facility] for acceptance and put patient on their wait list. 10/08 - 10/10 - continue current plan. Discharge plan continues to be placement at [facility] - Pt continues to be inappropriate to go outside based on continued demands for discharge, delusional thought content, and concerns for elopement risk if taken outside the hospital setting 10/11 - Continue current treatment plan - anticipated discharge to [facility] - Did review in detail expectations related to ability to go outside. Expectations were provided to patient, who initially verbalized understanding and repeated them back to this provider. Unfortunately, when expectations were reviewed right before attempt to go outside, patient escalated and demanded discharge and stated she was not going to the [facility]. Based on this behavior, it was deemed patient was not appropriate to go outside today. - Received amended court order to reflect updated 304 commitment to [facility] - following up to formally place patient on the waitlist 10/12 - Continue current medication regimen - pt due for next Invega Sustenna injection on 10/14 - Received confirmation that patient was formally placed on the waitlist at [facility], no available bed date at this time - Pt updated on status of [facility] referral, also updated that we were informed there is another Czech-speaking patient on the unit she will be admitted to and they have two Czech-speaking staff/interpreters on service. 10/13 - Continue current medication regimen - maintenance injection of Invega Sustenna due 10/14 - Awaiting bed date at [facility] 10/14 - Continue current treatment plan - Pt tolerated first maintenance injection of Invega Sustenna ordered for today - will be due again on 11/11 for next maintenance injection - Awaiting bed date and transfer to [facility] - Pt continues to be too delusional and agitated to tolerate a visit outside, will continue to assess 10/15 - 10/19 - Continue current treatment plan - Awaiting bed date and transfer to [facility] 10/20--reviewed. Continue current meds and treatment plan pending [facility] bed date. 10/21--reviewed. Continue current meds and treatment plan pending [facility] bed date. 10/22--reviewed. Continue current meds and treatment plan pending [facility] bed date. Will add PPI for presumed reflux/?hiatal hernia hx. Would need to go off unit for abdominal films and currently NAD. 10/23 - Continue current treatment plan. - Awaiting bed date and transfer to [facility] 10/24 - Continue current treatment plan - Received update that patient will be accepted to [facility] with a bed date of 11/09/2019. - Pt updated about discharge timeline and denied questions 10/25 - Continue current treatment plan - Pt remains delusional - recently mentioning that she has an octopus in her stomach, placed there by a man who lives in [place] - Discharge to [facility] is anticipated for 11/09/201910/26 - Continue current treatment plan 10/27 -continue current treatment plan and continue gentle reality testing rajani regarding discharge plans - Discharge to [facility] is anticipated for 11/09/201910/28 pt stating in positive manner will be discharged to another hospital on 11/08 10/29 - 10/31 - Continue current treatment plan - Discharge to [facility] anticipated for 11/09/201911/01 - Medications renewed - restarting pantoprazole as patient found it effective for abdominal pain - Continue current treatment plan - Discharge to [facility] anticipated for 11/09/2019 (2) Noncompliance with medication regimen: 09/02 - Unable to clarify if pt has been taking her medications regularly in the days since discharge. She at first indicated that she was not then indicated the medications arein a bag of hers but did not indicate actually taking them. The patient also claims to not recall the names of any of her medications and reports that she does not have the conditions for which her known medications are clearly intended. Possible cognitive impairments. might be impacting medication compliance. language impairments with pt not speaking Hebrew impacting compliance concerns. -The patient's underlying psychiatric condition will be actively treated. It is hoped that with treatment we will be able to improve medication compliance and also address aspects that impact compliance and improve this with appropriate interventions. CANTOR form of Invega to be continued at this time, next dose not due for another 2 weeks. Pt took meds this morning that were offered to her but given her extensive non compliance prior to, during and seeming after recent admission and lack of insight to her dx and presentation and indicating that recent hospitalization was quite helpful for her and her indicating wanting to continue her medications as was rx' at end of recent [facility] admission and were instructed to take at that discharge. I am in favor of medication over objection if pt objects to taking her medication during the course of this admission or if it is determined that pt is checking or not actually taking her medications. 10/16 - Pt has continued to tolerate Invega Sustenna maintenance injections. Last received injection on 10/15/2019, due for next injections of 234mg IM on 11/11 (3) Homeless: 09/03/19 -In the past, the patient has lived with family members. However, this is clearly not an option at the present time. The context is that the patient reportedly was in retirement for approximately a year because of her making terroristic threats against the family. While it does seem clear that the family wants to help protect her, they are unable to safely provide nursing home. Given the patient's history of neglect of self-care, medication nonadherence, and possible cognitive deficits we are going to investigate structured residential programs as part of our discharge planning. 09/03 -patient has consistently refused assistance with housing, insisting that she has a house in [place], although has not been able to provide an address and her family states this is not true. 09/06 - Patient's grandson called unit yesterday to provide additional information, stating the patient has been homeless for quite some time and there is no valid address for the patient 09/29 pt remains delusional about having a home and is agitated if this is approached or challenged in anyway 09/30 did not discuss further today as this is a point of delusion and been shown to be refractory to challenging in anyway (4) Involuntary commitment: 09/03 -patient on a 304 IOC, readmitted on a 302. We will file for a 306 conversion hearing. 09/04 - 306 hearing scheduled for 09/05; anticipate referral to [facility]. 09/05 -306 conversion granted, now here on a 304 involuntary commitment. 09/07 - Referral packet sent to [facility] on 09/06 (5) Nicotine abuse: 09/02 - Nicotine Patch 7mg topical daily resumed, and smoking cessation to be done when pt is in more apposite mental state to do so Inventory Assets Strengths: concerned family members, pleasant on approach Needs: stable housing, improved compliance to medication and treatment plan. Risk Factors Assessment Male: No : No Do You Have Access To A Gun?: No Health Problems: No Mental Health Diagnoses: Yes Substance Use Disorders: No Previous Attempt: Yes (Per family, patient denies) Previous Psychiatric Hospitalization: Yes Hopelessness: No Smoker: Yes Protective Factors Assessment : No Responsible for Young Children: No Employed: No Stable Relationships: No Supportive Family: No Good Rapport with Provider: No Interval History Identifying Information ANDREW CYR is a 64-year-old F who currently is homeless in [facility], has a history of schizoaffective disorder, bipolar type, and was admitted on 09/03/19 05:42 on a 302 involuntary commitment for psychosis, suicidal ideation, inability to provide for basic needs, and medication noncompliance. Chief Complaint "No quiero hablar." Review of Systems Notes Patient was uncooperative with assessment today. Verbalized to staff that she had abdominal pain this morning, but did not verbalize other physical concerns today. Sleep Information Total Hours of Sleep: 3.5 Sleep Comments: pt on q-15 minute checks Meal Information Percent Meal Consumed - Breakfast: 95 Percent Meal Consumed - Lunch: 100 Percent Meal Consumed - Dinner: 100 Nutrition Comment: documented from the pt. meal record Subjective Subjective Patient was seen & assessed and interval progress reviewed with nursing and social work. Staff report the patient continues with her usual behavior on the unit. She did report abdominal pain to staff this morning, so pantoprazole was reordered. Attempt was made to meet with patient to assess progress since admission. Pt was observed earlier in the morning to be on the phone, as her daughter called in to speak with her. Pt was on the phone for quite some time and then went to her room where she was observed to be pacing, talking to herself, and crying. Before this provider could start the call with a sales representative public utilities, patient stated "no quiero hablar" [I don't want to talk]. Pt continued to repeat this along with verbalizing several other phrases in Czech that this provider did not understand. Pt was asked "porque?" [why?]; however, she did not respond. Pt was asked if she would be willing to speak later, and she again stated "No doctora, no quiero hablar." Physical Exam Psychiatric Orientation: alert and + guarded (uncooperative) Apperance: appropriately dressed and + disheveled (hair appearing unkempt) Eye Contact: + poor eye contact (avoiding direct eye contact) Motor Behavior: steady gait and station and + psychomotor agitation (pacing room, fidgeting with hands) Speech: normal rate/rhythm/volume of speech Affect: + tearful affect and + labile affect Thought Process: goal directed thought process and + concrete thought process Thought Content: + paranoid, + delusions and + persecution Insight: + severely impaired insight Judgement: + severely impaired judgement Vital Signs (Past 24 Hours) Last Vital Signs Temp 36.9 C 11/02/19 06:40 Pulse 82 11/02/19 06:40 Resp 18 11/02/19 06:40 BP 148/77 H 11/02/19 06:40 Pulse Ox 95 09/03/19 05:47 . Results & Data ([facility]) Current Inpatient Medications Current Inpatient Medications: Current Inpatient Medications Acetaminophen (Acetaminophen 325 Mg Tab) 650 mg PO Q4H PRN PRN Reason: Headache or Minor Fever Stop: 12/02/19 07:54 Al Hydrox/Mg Hydrox/Simethicone (Aluminum/Magnesium Susp 30 Ml Udc) 30 ml PO Q4H PRN PRN Reason: GI Upset Stop: 12/02/19 07:54 Bismuth Subsalicylate (Bismuth Subsalicylate Per Ml Omnicell Charge) 15 ml PO PRN PRN PRN Reason: Loose Stool Stop: 12/02/19 07:54 Docusate Sodium (Docusate Sodium 100 Mg Cap) 100 mg PO BID [facility] Stop: 12/02/19 07:54 Last Admin: 11/02/19 08:47 Dose: Not Given Documented by: Haloperidol (Haloperidol 5 Mg Tab) 5 mg PO Q6H PRN PRN Reason: Agitation/Psychosis Stop: 12/02/19 07:54 Hydroxyzine HCl (Hydroxyzine Hcl 25 Mg Tab) 50 mg PO HSZ PRN PRN Reason: Insomnia Stop: 12/02/19 07:54 Hydroxyzine HCl (Hydroxyzine Hcl 25 Mg Tab) 25 mg PO Q4H PRN PRN Reason: Anxiety Stop: 12/02/19 07:54 Levothyroxine Sodium (Levothyroxine Sodium 75 Mcg Tablet) 75 mcg PO DAILYBB CLARISA Stop: 12/02/19 08:14 Last Admin: 11/02/19 08:43 Dose: 75 mcg Documented by: [place] Carbonate ([place] Carbonate 450 Mg Tabcr) 450 mg PO BID CLARISA Stop: 12/02/19 08:59 Last Admin: 11/02/19 08:47 Dose: 450 mg Documented by: Magnesium Hydroxide (Magnesium Hydroxide Susp 30 Ml Udc) 30 ml PO DAILY PRN PRN Reason: Constipation Stop: 12/02/19 07:54 Paliperidone Palmitate (Paliperidone Palmitate 234 Mg/1.5 Ml Syr) 234 mg IM Q28D@0900 CLARISA Stop: 12/12/19 10:59 Pantoprazole Sodium (Pantoprazole 40 Mg Tab) 40 mg PO QAM CLARISA Stop: 12/02/19 08:59 Simvastatin (Simvastatin 10 Mg Tab) 10 mg PO HS CLARISA Stop: 12/02/19 20:59 Sodium Chloride (Sodium Chloride 0.65% Na Soln 45 Ml ([place])) 1 - 2 sprays NA P RN PRN PRN Reason: Nasal Dryness/Congestion Stop: 12/02/19 07:54 Mental Health & Subst Abuse Tx Psychiatrist Name of Psychiatrist: . Psychiatrist's Phone Number: . Date of Appointment with Psychiatrist: 09/14/19 Time of Appointment with Psychiatrist: . Psychiatric Appointment Comment: . Therapist Name of Therapist: . Office Clerk Routine Name of Office Clerk Routine: [facility] - Lizzy Pandey Phone Number for Office Clerk Routine: [phone] Post Discharge Appointments Primary Care Physician Name Of Family Doctor: [facility] Primary Care Provider Appointment Comment: [id number], [address], [place] [address]
[2019-11-02] MEDS: PANTOprazole 40 MG TAB PO SCH (12:34)
[2019-11-02] MEDS: SIMVASTATIN 10 MG TAB PO SCH (21:02)
[2019-11-03] MEDS: LITHIUM CARBONATE 450 MG TABCR PO SCH ×2 (08:09→21:26)
[2019-11-03] MEDS: PANTOprazole 40 MG TAB PO SCH (08:09)
[2019-11-03] MEDS: LEVOTHYROXINE SODIUM 75 MCG TABLET PO SCH (08:09)
[2019-11-03] MEDS: DOCUSATE SODIUM 100 MG CAP PO SCH ×2 (08:09→21:26)
[2019-11-03] MEDS: SIMVASTATIN 10 MG TAB PO SCH ×2 (08:26→21:26)
--- NOTE | 2019-11-03 09:55 | Psychiatric Progress Note ---
Date of Service November 03, 2019 Impression / Recommendations Impression 64-year-old [place] female with schizoaffective disorder bipolar type admitted on a 302 commitment 4 days after being discharged from this unit on 08/29 after a 27-day hospitalization. She was discharged on a 304 IOC, and returned to the ER later that same day, after police were called due to bizarre behavior at a local grocery store, and was again discharged. Readmitted several days later with psychotic symptoms including paranoia, delusions of persecution (that people were trying to poison/harm her), refusing to eat with hypokalemia, homelessness, delusions that she owns a home, and inability to provide for her own basic needs. Additionally, family members who petitioned reported she made suicidal statements and walked into traffic, and reported delusions that her son had stabbed her in her intestines were hanging out. They also reported she had been noncompliant with oral psychotropic medications, and although her embedded case manager assisted her to fill these on the day of discharge, she did not bring them into the hospital with her and says she does not know where they are. She has repeatedly demonstrated complete inability to provide for her own basic needs outside of the hospital, including health, welfare, mcfp, food, and safety. Inpatient treatment is medically necessary due to the severity of her symptoms and risk for suicide if discharged. She is now on a 304 involuntary commitment, has been started on Invega Sustenna, and has been [facility]. Referral was made on 09/07/2019, received update on 10/12/2019 that patient is officially on the waitlist. Bed date of 11/09/2019 was provided to our team on 10/25/2019. Pt updated with this information. COVID- 19 testing ordered as directed for 11/04 with repeat on 11/06 - results to be faxed. Patient isolative in her room but remains delusional with believes that she has a home in [place] she can return to, and therefore continues to be uncooperative with appropriate discharge planning and is not demonstrating ability to tolerate community re-entry. (1) Schizoaffective disorder, bipolar type: 09/03/19 -The patient has been admitted to the locked, secured behavioral health unit and has been placed in special observation room. She is also being monitored with close observations and every 15-minute direct observation. When more stable she will be actively encouraged to participate in individual, group, and activity therapies. We will also attempt to involve the family if the patient permits us to and if they agree. - Resuming medications as was rx'd at time of discharge on 08/29 including po Invega, lithium, and Sustenna. 09/03 -continue current medications, patient is taking them. -File for 306 conversion hearing to be held 09/06/2019. She will likely need referral to the [facility] due to the need for long-term inpatient treatment. -Reviewed FLP and FG from recent hospitalization 08/07/2019: Cholesterol 221, glucose 109, other values within normal limits. -Attempt to involve family is able; son-in-law Poli is petitioner and was involved in hospitalization so we will ask staff to contact him for collateral information and to determine the family's ability to assist with discharge planning and housing. She has very limited supports in the community and if they are unable to assist her with housing and care, she will likely require long-term hospitalization. -Continue private room for psychosis. 09/04 - Continue current medication regimen - patient has been compliant with medications in this structured environment - 306 conversion hearing scheduled for 09/05 - Meeting with embedded case manager today to discuss treatment options and continue attempts to build rapport - Referral to [facility] is being recommended at this time has patient has repeatedly demonstrated an inability to care for self and provide for basic needs without the support of a structured psychiatric setting. - EKG (WNL). PPD was refused by patient - CXR ordered 09/05 -306 hearing held and patient converted to a 304 involuntary commitment. -Referred to [facility] for long-term inpatient treatment, as patient is severely ill and unable to provide for her own basic needs as a result of her mental illness, and treatment for 27 days on our acute unit was insufficient for successful transition to the community. She was at for 4 months within the past year, and did respond to treatment there, so returned to the [facility] as recommended for long-term treatment of SPMI. -EKG and chest x-ray completed for state hospital referral. 09/06 - Continue current medication regimen - Referral to [facility] is being prepared, approval was reportedly received from the county - Ongoing attempt to build rapport with psychiatric embedded case manager 09/07 - 09/09 - Continue current medication regimen - Referral sent to [facility] on 09/07/2019 for recommended long- term psychiatric hospitalization based on chronic medication/treatment non- compliance and repeated demonstration of inability to care for self outside of a structured psychiatric setting. - Pt was informed of [facility] referral today during encounter 09/10 - Continue current medication regimen - [facility] referral sent on 09/07/2019 - requesting updates regarding when case is anticipated to be reviewed and ensure information was received - Pt continues to demand to leave, unable to appreciated the severity of her condition. Ongoing concern related to patient's repeated demonstration of inability to care for self outside of a structured psychiatric setting. 09/11 - Continue current medication regimen - Awaiting acceptance at [facility]. Ongoing concern related to patient's repeated demonstration of inability to care for self outside of a structured psychiatric setting. 09/12 - 09/14 - Pt due for next injection of Invega Sustenna 234mg IM on 09/16. Oral supplementation was continued from last hospitalization due to concern for ongoing instability with regard to psychotic symptoms. In preparation for first maintenance dose, will reduce oral supplementation to 3mg qAM and discontinue oral paliperidone on 09/16. Continue lithium 450mg BID unchanged. - Awaiting replay for [facility] regarding referral. Ongoing con cern related to patient's repeated demonstration of inability to care for self outside of a structured psychiatric setting. Pt has consistently not been agreeable to diversion planning as a result of fixed delusional beliefs that she has family support, that she has a house to live in, and that she has a lot of money - none of these statements confirmed to be true. 09/15 -Continue treatment plan as previously prescribed 09/16 -now fully converted to invega sustenna. 09/17 - Continue current treatment plan 09/18 - 09/20 - Continue current treatment plan - Confirmed that information from patient's hospitalization at our facility was received by [facility], but case has not yet been reviewed. Still awaiting determination of acceptance status. 09/21 - continue current meds and tx plan. Reinstitute medically necessary private room as hx of aggression, labile mood, poor ability to keep contact precautions with COVID, hx homelessness higher risk category 09/22 - 09/23 - continue current meds and tx plan. 09/24 continue current meds and tx plan. MNPR for now as less paranoid and more visible on unit. 09/25 - Continue current treatment plan - patient remains irritable, paranoid, and delusional - Continue MNPR for paranoia and irritability 09/26 - Continue current treatment plan - Still awaiting response from [facility], 3 weeks after initially referral packet was sent - Pt did reportedly complete her Medical Assistance application. Consider repeat meeting with the county to discuss options for diversion planning; though these remain very limited - As review of patient's treatment plan has historically been very upsetting to the patient, discharge plans have not changed, and the therapeutic value of the review is limited - discussed with patient who did agree to review her treatment plan once a week unless there are changes in the interim. This was confirmed by multiple parties and can be reviewed with greater frequency at which time patient better tolerates the conversation and the therapeutic value is increased. 09/27 - 10/01 - Continue current treatment plan - Still awaiting response from [facility] - Pt is unwilling to consider alternative housing options - she maintains the delusion that she has a [place]house [place] which has been confirmed to be untrue. 10/02 - Continue as above - medications renewed - Still awaiting response from [facility] - Pt maintains fixed delusions that are interfering significantly with patient's ability to adequately care for herself outside of a structured/julien pervised setting 10/03 - Continue current medication regimen - 30-day treatment review; treatment plan reviewed with patient who did become angry when length of stay was reviewed. Again became acutely agitated during conversation with provider today - Pt demonstrated very loud yelling, acute agitation, and inability to appropriately communicate frustration. These concerns, in addition to numerous failed attempts at discharge, continue to be evidence as to why patient is not appropriate to be discharged to the community. - Pt is not appropriate to go outside based on episodes of acute agitation and continued delusions which interfere with patient's ability to ensure appropriate behavior 10/04 - 10/05 - Continue current medication regimen - Pt remains inappropriate to go outside - Plan remains for transfer to the [facility] - no response regarding acceptance 10/06 - 10/07 -continue current plan. Amended court order to be obtained Wednesday and sent to the [facility] for acceptance and put patient on their wait list. 10/08 - 10/10 - continue current plan. Discharge plan continues to be placement at [facility] - Pt continues to be inappropriate to go outside based on continued demands for discharge, delusional thought content, and concerns for elopement risk if taken outside the hospital setting 10/11 - Continue current treatment plan - anticipated discharge to [facility] - Did review in detail expectations related to ability to go outside. Expectations were provided to patient, who initially verbalized understanding and repeated them back to this provider. Unfortunately, when expectations were reviewed right before attempt to go outside, patient escalated and demanded discharge and stated she was not going to the [facility]. Based on this behavior, it was deemed patient was not appropriate to go outside today. - Received amended court order to reflect updated 304 commitment to [facility] - following up to formally place patient on the waitlist 10/12 - Continue current medication regimen - pt due for next Invega Sustenna injection on 10/14 - Received confirmation that patient was formally placed on the waitlist at [facility], no available bed date at this time - Pt updated on status of [facility] referral, also updated that we were informed there is another [place]-speaking patient on the unit she will be admitted to and they have two [place]-speaking staff/interpreters on service. 10/13 - Continue current medication regimen - maintenance injection of Invega Sustenna due 10/14 - Awaiting bed date at [facility] 10/14 - Continue current treatment plan - Pt tolerated first maintenance injection of Invega Sustenna ordered for today - will be due again on 11/11 for next maintenance injection - Awaiting bed date and transfer to [facility] - Pt continues to be too delusional and agitated to tolerate a visit outside, will continue to assess 10/15 - 10/19 - Continue current treatment plan - Awaiting bed date and transfer to [facility] 10/20--reviewed. Continue current meds and treatment plan [facility] bed date. 10/21--reviewed. Continue current meds and treatment plan [facility] bed date. 10/22--reviewed. Continue current meds and treatment plan pending [facility] bed date. Will add PPI for presumed reflux/?hiatal hernia hx. Would need to go off unit for abdominal films and currently NAD. 10/23 - Continue current treatment plan. - Awaiting bed date and transfer to [facility] 10/24 - Continue current treatment plan - Received update that patient will be accepted to [facility] with a bed date of 11/09/2019. - Pt updated about discharge timeline and denied questions 10/25 - Continue current treatment plan - Pt remains delusional - recently mentioning that she has an octopus in her stomach, placed there by a man who lives in [place] - Discharge to [facility] is anticipated for 11/09/20197 - Continue current treatment plan 10/27 -continue current treatment plan and continue gentle reality testing rajani regarding discharge plans - Discharge to [facility] is anticipated for 11/09/201910/28 pt stating in positive manner will be discharged to another hospital on 11/08 10/29 - 10/31 - Continue current treatment plan - Discharge to [facility] anticipated for 11/09/201911/01 - Medications renewed - restarting pantoprazole as patient found it effective for abdominal pain - Continue current treatment plan - Discharge to [facility] anticipated for 11/09/201911/02 - Continue current treatment plan - Discharge to [facility] anticipated for 11/09/2019 - COVID-19 testing ordered as instructed for 11/04 and 11/06, with results to be faxed once received. Pt updated on testing procedures and denied questions or concerns. (2) Noncompliance with medication regimen: 09/02 - Unable to clarify if pt has been taking her medications regularly in the days since discharge. She at first indicated that she was not then indicated the medications arein a bag of hers but did not indicate actually taking them. The patient also claims to not recall the names of any of her medications and reports that she does not have the conditions for which her kno wn medications are clearly intended. Possible cognitive impairments. might be impacting medication compliance. language impairments with pt not speaking [place]i impacting compliance concerns. -The patient's underlying psychiatric condition will be actively treated. It is hoped that with treatment we will be able to improve medication compliance and also address aspects that impact compliance and improve this with appropriate interventions. CANTOR form of Invega to be continued at this time, next dose not due for another 2 weeks. Pt took meds this morning that were offered to her but given her extensive non compliance prior to, during and seeming after recent admission and lack of insight to her dx and presentation and indicating that recent hospitalization was quite helpful for her and her indicating wanting to continue her medications as was rx' at end of recent [facility] admission and were instructed to take at that discharge. I am in favor of medication over objection if pt objects to taking her medication during the course of this admission or if it is determined that pt is checking or not actually taking her medications. 10/16 - Pt has continued to tolerate Invega Sustenna maintenance injections. Last received injection on 10/15/2019, due for next injections of 234mg IM on 11/11 (3) Homeless: 09/03/19 -In the past, the patient has lived with family members. However, this is clearly not an option at the present time. The context is that the patient reportedly was in snf for approximately a year because of her making terroristic threats against the family. While it does seem clear that the family wants to help protect her, they are unable to safely provide mcfp. Given the patient's history of neglect of self-care, medication nonadherence, and possible cognitive deficits we are going to investigate structured residential programs as part of our discharge planning. 09/03 -patient has consistently refused assistance with housing, insisting that she has a house in [place], although has not been able to provide an address and her family states this is not true. 09/06 - Patient's grandson called unit yesterday to provide additional information, stating the patient has been homeless for quite some time and there is no valid address for the patient 09/29 pt remains delusional about having a home and is agitated if this is approached or challenged in anyway 09/30 did not discuss further today as this is a point of delusion and been shown to be refractory to challenging in anyway (4) Involuntary commitment: 09/03 -patient on a 304 IOC, readmitted on a 302. We will file for a 306 conversion hearing. 09/04 - 306 hearing scheduled for 09/05; anticipate referral to [facility]. 09/05 -306 conversion granted, now here on a 304 involuntary commitment. 09/07 - Referral packet sent to [facility] on 09/06 (5) Nicotine abuse: 09/02 - Nicotine Patch 7mg topical daily resumed, and smoking cessation to be done when pt is in more apposite mental state to do so Inventory Assets Strengths: concerned family members, pleasant on approach Needs: stable housing, improved compliance to medication and treatment plan. Risk Factors Assessment Male: No : No Do You Have Access To A Gun?: No Health Problems: No Mental Health Diagnoses: Yes Substance Use Disorders: No Previous Attempt: Yes (Per family, patient denies) Previous Psychiatric Hospitalization: Yes Hopelessness: No Smoker: Yes Protective Factors Assessment : No Responsible for Young Children: No Employed: No Stable Relationships: No Supportive Family: No Good Rapport with Provider: No Interval History Identifying Information ANDREW CYR is a 64-year-old F who currently is homeless in [facility], has a history of schizoaffective disorder, bipolar type, and was admitted on 09/03/19 05:42 on a 302 involuntary commitment for psychosis, suicidal ideation, inability to provide for basic needs, and medication noncompliance. Chief Complaint "Fine. Thank You." Review of Systems Notes Constitutional: denied Cardiovascular: denied Respiratory: denied Gastrointestinal: denied Neurological: denied Psychiatric: denies symptoms other than stated above Total of at least 10 systems reviewed, pertinent positives as above and in HPI. Sleep Information Total Hours of Sleep: 7.75 Sleep Comments: Patient was up early. She walked the halls briefly then remained in her room. Meal Information Percent Meal Consumed - Breakfast: 100 Percent Meal Consumed - Lunch: 100 Percent Meal Consumed - Dinner: 100 Nutrition Comment: documented from the pt. meal record Subjective Subjective Patient was seen & assessed and interval progress reviewed with treatment team. Staff report the patient's condition remains largely unchanged. She was more tearful yesterday, and continues to be observed to be talking to herself in her room intermittently. Pt was seen today to assess progress since admission. 60- day treatment plan was reviewed at the beginning of our conversation with recreational therapist. [place] conversation was conducted with assistance from [facility] interpretive service Brianda #[id number]. Pt states she is "Fine. Thank you." Pt tolerated review of treatment plan; however, did decline to sign the document stating "no more." This provider inquired about phone call between the patient and her daughter Joseline regarding belongings being brought to the hospital before patient is transferred to [facility]. Pt states "yes, we talked about that. She did say she would try to come yesterday but wasn't able to." Pt is anticipating the daughter will be coming to drop off belongings before she is discharged, though we have had no direct communication with patient's family aside from transferring their incoming calls to our facility. Pt was provided with instructions to give her daughter if she should speak to her again. Pt was also provided with explanation of COVID-19 testing procedures for this coming week, she denied concerns or questions. Pt denied other needs at this time. Physical Exam Psychiatric Orientation: alert and cooperative (superifically) Apperance: appropriately dressed (casually, in t-shirt and leggings) and + disheveled (appearing somewhat unkempt) Eye Contact: good eye contact Motor Behavior: steady gait and station and no abnormal motor movements Speech: normal rate/rhythm/volume of speech Affect: + blunted affect (appearing subdued) Mood: no depressed mood ("good") Thought Process: + concrete thought process Thought Content: + paranoid, + delusions and + persecution Suicidal Thoughts: denies suicidal thoughts Homicidal Thoughts: denies homicidal thoughts Hallucinations: patient continues to deny; however, there are ongoing observations of patient talking to herself in her room Cognition: attention grossly intact and language grossly intact Insight: + impaired insight Judgement: + impaired judgement Vital Signs (Past 24 Hours) Last Vital Signs Temp 36.8 C 11/03/19 06:42 Pulse 86 11/03/19 06:43 Resp 16 11/03/19 06:42 BP 127/76 11/03/19 06:43 Pulse Ox 95 09/03/19 05:47 . Results & Data ([facility]) Current Inpatient Medications Current Inpatient Medications: Current Inpatient Medications Acetaminophen (Acetaminophen 325 Mg Tab) 650 mg PO Q4H PRN PRN Reason: Headache or Minor Fever Stop: 12/02/19 07:54 Al Hydrox/Mg Hydrox/Simethicone (Aluminum/Magnesium Susp 30 Ml Udc) 30 ml PO Q4H PRN PRN Reason: GI Upset Stop: 12/02/19 07:54 Bismuth Subsalicylate (Bismuth Subsalicylate Per Ml Omnicell Charge) 15 ml PO PRN PRN PRN Reason: Loose Stool Stop: 12/02/19 07:54 Docusate Sodium (Docusate Sodium 100 Mg Cap) 100 mg PO BID CLARISA Stop: 12/02/19 07:54 Last Admin: 11/03/19 08:09 Dose: 100 mg Documented by: Haloperidol (Haloperidol 5 Mg Tab) 5 mg PO Q6H PRN PRN Reason: Agitation/Psychosis Stop: 12/02/19 07:54 Hydroxyzine HCl (Hydroxyzine Hcl 25 Mg Tab) 50 mg PO HSZ PRN PRN Reason: Insomnia Stop: 12/02/19 07:54 Hydroxyzine HCl (Hydroxyzine Hcl 25 Mg Tab) 25 mg PO Q4H PRN PRN Reason: Anxiety Stop: 12/02/19 07:54 Levothyroxine Sodium (Levothyroxine Sodium 75 Mcg Tablet) 75 mcg PO DAILYBB CLARISA Stop: 12/02/19 08:14 Last Admin: 11/03/19 08:09 Dose: 75 mcg Documented by: Bessie Carbonate (Bessie Carbonate 450 Mg Tabcr) 450 mg PO BID [facility] Stop: 12/02/19 08:59 Last Admin: 11/03/19 08:09 Dose: 450 mg Documented by: Magnesium Hydroxide (Magnesium Hydroxide Susp 30 Ml Udc) 30 ml PO DAILY PRN PRN Reason: Constipation Stop: 12/02/19 07:54 Paliperidone Palmitate (Paliperidone Palmitate 234 Mg/1.5 Ml Syr) 234 mg IM Q28D@0900 [facility] Stop: 12/12/19 10:59 Pantoprazole Sodium (Pantoprazole 40 Mg Tab) 40 mg PO QAM [facility] Stop: 11/05/19 09:01 Last Admin: 11/03/19 08:09 Dose: 40 mg Documented by: Simvastatin (Simvastatin 10 Mg Tab) 10 mg PO HS CLARISA Stop: 12/02/19 20:59 Last Admin: 11/03/19 08:26 Dose: Not Given Documented by: Sodium Chloride (Sodium Chloride 0.65% Na Soln 45 Ml ([place])) 1 - 2 sprays NA PRN PRN PRN Reason: Nasal Dryness/Congestion Stop: 12/02/19 07:54 Mental Health & Subst Abuse Tx Psychiatrist Name of Psychiatrist: . Psychiatrist's Phone Number: . Date of Appointment with Psychiatrist: 09/14/19 Time of Appointment with Psychiatrist: . Psychiatric Appointment Comment: . Therapist Name of Therapist: . Toe Puncher Name of Toe Puncher: [facility] - Lizzy Pandey Phone Number for Toe Puncher: [phone] Post Discharge Appointments Primary Care Physician Name Of Family Doctor: [facility] Primary Care Provider Appointment Comment: [id number] [facility], [address], [place] [address]
[2019-11-04] MEDS: DOCUSATE SODIUM 100 MG CAP PO SCH ×2 (07:48→20:03)
[2019-11-04] MEDS: LITHIUM CARBONATE 450 MG TABCR PO SCH ×2 (07:48→20:03)
[2019-11-04] MEDS: PANTOprazole 40 MG TAB PO SCH (07:48)
[2019-11-04] MEDS: LEVOTHYROXINE SODIUM 75 MCG TABLET PO SCH (07:49)
--- NOTE | 2019-11-04 13:42 | Psychiatric Progress Note ---
Date of Service November 04, 2019 Impression / Recommendations Impression 64-year-old Citizen Of [place] female with schizoaffective disorder bipolar type admitted on a 302 commitment 4 days after being discharged from this unit on 08/29 after a 27-day hospitalization. She was discharged on a 304 IOC, and returned to the ER later that same day, after police were called due to bizarre behavior at a local grocery store, and was again discharged. Readmitted several days later with psychotic symptoms including paranoia, delusions of persecution (that people were trying to poison/harm her), refusing to eat with hypokalemia, homelessness, delusions that she owns a home, and inability to provide for her own basic needs. Additionally, family members who petitioned reported she made suicidal statements and walked into traffic, and reported delusions that her son had stabbed her in her intestines were hanging out. They also reported she had been noncompliant with oral psychotropic medications, and although her child welfare caseworker assisted her to fill these on the day of discharge, she did not bring them into the hospital with her and says she does not know where they are. She has repeatedly demonstrated complete inability to provide for her own basic needs outside of the hospital, including health, welfare, [place] [facility], food, and safety. Inpatient treatment is medically necessary due to the severity of her symptoms and risk for suicide if discharged. She is now on a 304 involuntary commitment, has been started on Invega Sustenna, and has been referred to the [facility] long-term inpatient treatment. Referral was made on 09/07/2019, received update on 10/12/2019 that patient is officially on the waitlist. Bed date of 11/09/2019 was provided to our team on 10/25/2019. Pt updated with this information. COVID- 19 testing ordered as directed for 11/04 with repeat on 11/06 - results to be faxed. Patient isolative in her room but remains delusional with believes that she has a home in [place] she can return to, and therefore continues to be uncooperative with appropriate discharge planning and is not demonstrating ability to tolerate community re-entry. (1) Schizoaffective disorder, bipolar type: 09/03/19 -The patient has been admitted to the locked, secured behavioral health unit and has been placed in special observation room. She is also being monitored with close observations and every 15-minute direct observation. When more stable she will be actively encouraged to participate in individual, group, and activity therapies. We will also attempt to involve the family if the patient permits us to and if they agree. - Resuming medications as was rx'd at time of discharge on 08/29 including po Invega, lithium, and Sustenna. 09/03 -continue current medications, patient is taking them. -File for 306 conversion hearing to be held 09/06/2019. She will likely need referral to the [facility] due to the need for long-term inpatient treatment. -Reviewed FLP and FG from recent hospitalization 08/07/2019: Cholesterol 221, glucose 109, other values within normal limits. -Attempt to involve family is able; son-in-law Poli is petitioner and was involved in hospitalization so we will ask staff to contact him for collateral information and to determine the family's ability to assist with discharge planning and housing. She has very limited supports in the community and if they are unable to assist her with housing and care, she will likely require long-term hospitalization. -Continue private room for psychosis. 09/04 - Continue current medication regimen - patient has been compliant with medications in this structured environment - 306 conversion hearing scheduled for 09/05 - Meeting with child welfare caseworker today to discuss treatment options and continue attempts to build rapport - Referral to [facility] is being recommended at this time has patient has repeatedly demonstrated an inability to care for self and provide for basic needs without the support of a structured psychiatric setting. - EKG (WNL). PPD was refused by patient - CXR ordered 09/05 -306 hearing held and patient converted to a 304 involuntary commitment. -Referred to [facility] for long-term inpatient treatment, as patient is severely ill and unable to provide for her own basic needs as a result of her mental illness, and treatment for 27 days on our acute unit was insufficient for successful transition to the community. She was at [facility] for 4 months within the past year, and did respond to treatment there, so returned to the [facility] hospital as recommended for long-term treatment of SPMI. -EKG and chest x-ray completed for state hospital referral. 09/06 - Continue current medication regimen - Referral to [facility] is being prepared, approval was reportedly received from the county - Ongoing attempt to build rapport with psychiatric child welfare caseworker 09/07 - 09/09 - Continue current medication regimen - Referral sent to [facility] on 09/07/2019 for recommended long- term psychiatric hospitalization based on chronic medication/treatment non- compliance and repeated demonstration of inability to care for self outside of a structured psychiatric setting. - Pt was informed of [facility] referral today during encounter 09/10 - Continue current medication regimen - [facility] referral sent on 09/07/2019 - requesting updates regarding when case is anticipated to be reviewed and ensure information was received - Pt continues to demand to leave, unable to appreciated the severity of her condition. Ongoing concern related to patient's repeated demonstration of inability to care for self outside of a structured psychiatric setting. 09/11 - Continue current medication regimen - Awaiting acceptance at [facility]. Ongoing concern related to patient's repeated demonstration of inability to care for self outside of a structured psychiatric setting. 09/12 - 09/14 - Pt due for next injection of Invega Sustenna 234mg IM on 09/16. Oral supplementation was continued from last hospitalization due to concern for ongoing instability with regard to psychotic symptoms. In preparation for first maintenance dose, will reduce oral supplementation to 3mg qAM and discontinue oral paliperidone on 09/16. Continue lithium 450mg BID unchanged. - Awaiting replay for [facility] regarding referral. Ongoing con cern related to patient's repeated demonstration of inability to care for self outside of a structured psychiatric setting. Pt has consistently not been agreeable to diversion planning as a result of fixed delusional beliefs that she has family support, that she has a house to live in, and that she has a lot of money - none of these statements confirmed to be true. 09/15 -Continue treatment plan as previously prescribed 09/16 -now fully converted to invega sustenna. 09/17 - Continue current treatment plan 09/18 - 09/20 - Continue current treatment plan - Confirmed that information from patient's hospitalization at our facility was received by [facility], but case has not yet been reviewed. Still awaiting determination of acceptance status. 09/21 - continue current meds and tx plan. Reinstitute medically necessary private room as hx of aggression, labile mood, poor ability to keep contact precautions with COVID, hx homelessness higher risk category 09/22 - 09/23 - continue current meds and tx plan. 09/24 continue current meds and tx plan. MNPR for now as less paranoid and more visible on unit. 09/25 - Continue current treatment plan - patient remains irritable, paranoid, and delusional - Continue MNPR for paranoia and irritability 09/26 - Continue current treatment plan - Still awaiting response from [facility], 3 weeks after initially referral packet was sent - Pt did reportedly complete her Medical Assistance application. Consider repeat meeting with the county to discuss options for diversion planning; though these remain very limited - As review of patient's treatment plan has historically been very upsetting to the patient, discharge plans have not changed, and the therapeutic value of the review is limited - discussed with patient who did agree to review her treatment plan once a week unless there are changes in the interim. This was confirmed by multiple parties and can be reviewed with greater frequency at which time patient better tolerates the conversation and the therapeutic value is increased. 09/27 - 10/01 - Continue current treatment plan - Still awaiting response from [facility] - Pt is unwilling to consider alternative housing options - she maintains the delusion that she has a penthouse in [place] which has been confirmed to be untrue. 10/02 - Continue as above - medications renewed - Still awaiting response from [facility] - Pt maintains fixed delusions that are interfering significantly with patient's ability to adequately care for herself outside of a structured/julien pervised setting 10/03 - Continue current medication regimen - 30-day treatment review; treatment plan reviewed with patient who did become angry when length of stay was reviewed. Again became acutely agitated during conversation with provider today - Pt demonstrated very loud yelling, acute agitation, and inability to appropriately communicate frustration. These concerns, in addition to numerous failed attempts at discharge, continue to be evidence as to why patient is not appropriate to be discharged to the community. - Pt is not appropriate to go outside based on episodes of acute agitation and continued delusions which interfere with patient's ability to ensure appropriate behavior 10/04 - 10/05 - Continue current medication regimen - Pt remains inappropriate to go outside - Plan remains for transfer to the [facility] - no response regarding acceptance 10/06 - 10/07 -continue current plan. Amended court order to be obtained Wednesday and sent to the [facility] for acceptance and put patient on their wait list. 10/08 - 10/10 - continue current plan. Discharge plan continues to be placement at [facility] - Pt continues to be inappropriate to go outside based on continued demands for discharge, delusional thought content, and concerns for elopement risk if taken outside the hospital setting 10/11 - Continue current treatment plan - anticipated discharge to [facility] - Did review in detail expectations related to ability to go outside. Expectations were provided to patient, who initially verbalized understanding and repeated them back to this provider. Unfortunately, when expectations were reviewed right before attempt to go outside, patient escalated and demanded discharge and stated she was not going to the [facility]. Based on this behavior, it was deemed patient was not appropriate to go outside today. - Received amended court order to reflect updated 304 commitment to [facility] - following up to formally place patient on the waitlist 10/12 - Continue current medication regimen - pt due for next Invega Sustenna injection on 10/14 - Received confirmation that patient was formally placed on the waitlist at [facility], no available bed date at this time - Pt updated on status of [facility] referral, also updated that we were informed there is another Eritrean-speaking patient on the unit she will be admitted to and they have two Eritrean-speaking staff/interpreters on service. 10/13 - Continue current medication regimen - maintenance injection of Invega Sustenna due 10/14 - Awaiting bed date at [facility] 10/14 - Continue current treatment plan - Pt tolerated first maintenance injection of Invega Sustenna ordered for today - will be due again on 11/11 for next maintenance injection - Awaiting bed date and transfer to [facility] - Pt continues to be too delusional and agitated to tolerate a visit outside, will continue to assess 10/15 - 10/19 - Continue current treatment plan - Awaiting bed date and transfer to [facility] 10/20--reviewed. Continue current meds and treatment plan pending [facility] bed date. 10/21--reviewed. Continue current meds and treatment plan pending [facility] bed date. 10/22--reviewed. Continue current meds and treatment plan pending [facility] bed date. Will add PPI for presumed reflux/?hiatal hernia hx. Would need to go off unit for abdominal films and currently NAD. 10/23 - Continue current treatment plan. - Awaiting bed date and transfer to [facility] 10/24 - Continue current treatment plan - Received update that patient will be accepted to [facility] with a bed date of 11/09/2019. - Pt updated about discharge timeline and denied questions 10/25 - Continue current treatment plan - Pt remains delusional - recently mentioning that she has an octopus in her stomach, placed there by a man who lives in [place] - Discharge to [facility] is anticipated for 11/09/2019 87 - Continue current treatment plan 10/27 -continue current treatment plan and continue gentle reality testing rajani regarding discharge plans - Discharge to [facility] is anticipated for 11/09/201910/28 pt stating in positive manner will be discharged to another hospital on 11/08 10/29 - 10/31 - Continue current treatment plan - Discharge to [facility] anticipated for 11/09/201911/01 - Medications renewed - restarting pantoprazole as patient found it effective for abdominal pain - Continue current treatment plan - Discharge to [facility] anticipated for 11/09/201911/02 - Continue current treatment plan - Discharge to [facility] anticipated for 11/09/2019 - COVID-19 testing ordered as instructed for 11/04 and 11/06, with results to be faxed once received. Pt updated on testing procedures and denied questions or concerns. 11/03 -Continue medications as prescribed -Patient aware of pending COVID-19 testing prior to discharge to [facility] (2) Noncompliance with medication regimen: 09/02 - Unable to clarify if pt has been taking her medications regularly in the days since discharge. She at first indicated that she was not then indicated the medications arein a bag of hers but did not indicate actually taking them. The patient also claims to not recall the names of any of her medications and reports that she does not have the conditions for which her known medications are clearly intended. Possible cognitive impairments. might be impacting medication compliance. language impairments with pt not speaking Italian impacting compliance concerns. -The patient's underlying psychiatric condition will be actively treated. It is hoped that with treatment we will be able to improve medication compliance and also address aspects that impact compliance and improve this with appropriate interventions. CANTOR form of Invega to be continued at this time, next dose not due for another 2 weeks. Pt took meds this morning that were offered to her but given her extensive non compliance prior to, during and seeming after recent admission and lack of insight to her dx and presentation and indicating that recent hospitalization was quite helpful for her and her indicating wanting to continue her medications as was rx' at end of recent [facility] admission and were instructed to take at that discharge. I am in favor of medication over objection if pt objects to taking her medication during the course of this admission or if it is determined that pt is checking or not actually taking her medications. 10/16 - Pt has continued to tolerate Invega Sustenna maintenance injections. Last received injection on 10/15/2019, due for next injections of 234mg IM on 11/11 (3) Homeless: 09/03/19 -In the past, the patient has lived with family members. However, this is clearly not an option at the present time. The context is that the patient reportedly was in care home for approximately a year because of her making terroristic threats against the family. While it does seem clear that the family wants to help protect her, they are unable to safely provide [place] [facility]. Given the patient's history of neglect of self-care, medication nonadherence, and possible cognitive deficits we are going to investigate structured residential programs as part of our discharge planning. 09/03 -patient has consistently refused assistance with housing, insisting that she has a house in [place], although has not been able to provide an address and her family states this is not true. 09/06 - Patient's grandson called unit yesterday to provide additional information, stating the patient has been homeless for quite some time and there is no valid address for the patient 09/29 pt remains delusional about having a home and is agitated if this is approached or challenged in anyway 09/30 did not discuss further today as this is a point of delusion and been shown to be refractory to challenging in anyway (4) Involuntary commitment: 09/03 -patient on a 304 IOC, readmitted on a 302. We will file for a 306 conversion hearing. 09/04 - 306 hearing scheduled for 09/05; anticipate referral to [facility]. 09/05 -306 conversion granted, now here on a 304 involuntary commitment. 09/07 - Referral packet sent to [facility] on 09/06 (5) Nicotine abuse: 09/02 - Nicotine Patch 7mg topical daily resumed, and smoking cessation to be done when pt is in more apposite mental state to do so Inventory Assets Strengths: concerned family members, pleasant on approach Needs: stable housing, improved compliance to medication and treatment plan. Risk Factors Assessment Male: No : No Do You Have Access To A Gun?: No Health Problems: No Mental Health Diagnoses: Yes Substance Use Disorders: No Previous Attempt: Yes (Per family, patient denies) Previous Psychiatric Hospitalization: Yes Hopelessness: No Smoker: Yes Protective Factors Assessment : No Responsible for Young Children: No Employed: No Stable Relationships: No Supportive Family: No Good Rapport with Provider: No Interval History Identifying Information ANDREW CYR is a 64-year-old F who currently is homeless in [place], has a history of schizoaffective disorder, bipolar type, and was admitted on 09/03/19 05:42 on a 302 involuntary commitment for psychosis, suicidal ideation, inability to provide for basic needs, and medication noncompliance. Chief Complaint "Fine thank you". Review of Systems Sleep Information Total Hours of Sleep: 4.5 Sleep Comments: awake at 2340 for snacks and sat in the kitchen area for awhile afterward. awake again about 0430 for more snacks. Meal Information Percent Meal Consumed - Breakfast: 100 Percent Meal Consumed - Lunch: 100 Percent Meal Consumed - Dinner: 100 Nutrition Comment: documented from the pt. meal record Subjective Subjective Patient was seen & assessed and interval progress reviewed with treatment team nursing and social work. No acute events overnight. Patient scheduled for potential discharge to [facility] this coming week. Scheduled for COVID test x2, first on Wednesday. She is made aware and indicates "it is okay." She denies concerns on interview today including emotional or physical and participates easily and smiles in a friendly manner. Interview was conducted with utilization of materials development engineer iPad. Physical Exam Psychiatric Orientation: alert and cooperative Apperance: appropriately dressed Eye Contact: good eye contact Motor Behavior: steady gait and station Speech: normal rate/rhythm/volume of speech; no pressured speech Affect calm Mood: no depressed mood (fine) Thought Process: + concrete thought process Thought Content: + delusions Suicidal Thoughts: denies suicidal thoughts Hallucinations: no auditory hallucinations Insight: + impaired insight Judgement: + impaired judgement Vital Signs (Past 24 Hours) Last Vital Signs Temp 36.7 C 11/04/19 06:27 Pulse 76 11/04/19 06:28 Resp 18 11/04/19 06:27 BP 135/82 11/04/19 06:28 Pulse Ox 95 09/03/19 05:47 . Results & Data ([facility]) Current Inpatient Medications Current Inpatient Medications: Current Inpatient Medications Acetaminophen (Acetaminophen 325 Mg Tab) 650 mg PO Q4H PRN PRN Reason: Headache or Minor Fever Stop: 12/02/19 07:54 Al Hydrox/Mg Hydrox/Simethicone (Aluminum/Magnesium Susp 30 Ml Udc) 30 ml PO Q4H PRN PRN Reason: GI Upset Stop: 12/02/19 07:54 Bismuth Subsalicylate (Bismuth Subsalicylate Per Ml Omnicell Charge) 15 ml PO PRN PRN PRN Reason: Loose Stool Stop: 12/02/19 07:54 Docusate Sodium (Docusate Sodium 100 Mg Cap) 100 mg PO BID CLARISA Stop: 12/02/19 07:54 Last Admin: 11/04/19 07:48 Dose: 100 mg Documented by: Haloperidol (Haloperidol 5 Mg Tab) 5 mg PO Q6H PRN PRN Reason: Agitation/Psychosis Stop: 12/02/19 07:54 Hydroxyzine HCl (Hydroxyzine Hcl 25 Mg Tab) 50 mg PO HSZ PRN PRN Reason: Insomnia Stop: 12/02/19 07:54 Hydroxyzine HCl (Hydroxyzine Hcl 25 Mg Tab) 25 mg PO Q4H PRN PRN Reason: Anxiety Stop: 12/02/19 07:54 Levothyroxine Sodium (Levothyroxine Sodium 75 Mcg Tablet) 75 mcg PO DAILYBB CLARISA Stop: 12/02/19 08:14 Last Admin: 11/04/19 07:49 Dose: 75 mcg Documented by: [place] Carbonate ([place] Carbonate 450 Mg Tabcr) 450 mg PO BID CLARISA Stop: 12/02/19 08:59 Last Admin: 11/04/19 07:48 Dose: 450 mg Documented by: Magnesium Hydroxide (Magnesium Hydroxide Susp 30 Ml Udc) 30 ml PO DAILY PRN PRN Reason: Constipation Stop: 12/02/19 07:54 Paliperidone Palmitate (Paliperidone Palmitate 234 Mg/1.5 Ml Syr) 234 mg IM [id number]@0900 [facility] Stop: 12/12/19 10:59 Pantoprazole Sodium (Pantoprazole 40 Mg Tab) 40 mg PO QAM CLARISA Stop: 11/05/19 09:01 Last Admin: 11/04/19 07:48 Dose: 40 mg Documented by: Simvastatin (Simvastatin 10 Mg Tab) 10 mg PO HS CLARISA Stop: 12/02/19 20:59 Last Admin: 11/03/19 21:26 Dose: 10 mg Documented by: Sodium Chloride (Sodium Chloride 0.65% Na Soln 45 Ml ([place])) 1 - 2 sprays NA PRN PRN PRN Reason: Nasal Dryness/Congestion Stop: 12/02/19 07:54 Mental Health & Subst Abuse Tx Psychiatrist Name of Psychiatrist: . Psychiatrist's Phone Number: . Date of Appointment with Psychiatrist: 09/14/19 Time of Appointment with Psychiatrist: . Psychiatric Appointment Comment: . Therapist Name of Therapist: . Cost Accountant Name of Cost Accountant: [facility] - Lizzy Pandey Phone Number for Cost Accountant: [phone] Post Discharge Appointments Primary Care Physician Name Of Family Doctor: [facility] Primary Care Provider Appointment Comment: [id number], [address], [place] [address]
[2019-11-04] MEDS: SIMVASTATIN 10 MG TAB PO SCH (20:03)
[2019-11-05] MEDS: DOCUSATE SODIUM 100 MG CAP PO SCH ×2 (08:38→20:19)
[2019-11-05] MEDS: LEVOTHYROXINE SODIUM 75 MCG TABLET PO SCH (08:38)
[2019-11-05] MEDS: LITHIUM CARBONATE 450 MG TABCR PO SCH ×2 (08:39→20:20)
[2019-11-05] MEDS: PANTOprazole 40 MG TAB PO SCH (08:39)
--- NOTE | 2019-11-05 16:34 | Psychiatric Progress Note ---
Date of Service November 05, 2019 Impression / Recommendations Impression 64-year-old [place] female with schizoaffective disorder bipolar type admitted on a 302 commitment 4 days after being discharged from this unit on 08/29 after a 27-day hospitalization. She was discharged on a 304 IOC, and returned to the ER later that same day, after police were called due to bizarre behavior at a local grocery store, and was again discharged. Readmitted several days later with psychotic symptoms including paranoia, delusions of persecution (that people were trying to poison/harm her), refusing to eat with hypokalemia, homelessness, delusions that she owns a home, and inability to provide for her own basic needs. Additionally, family members who petitioned reported she made suicidal statements and walked into traffic, and reported delusions that her son had stabbed her in her intestines were hanging out. They also reported she had been noncompliant with oral psychotropic medications, and although her casework supervisor assisted her to fill these on the day of discharge, she did not bring them into the hospital with her and says she does not know where they are. She has repeatedly demonstrated complete inability to provide for her own basic needs outside of the hospital, including health, welfare, skilled nursing, food, and safety. Inpatient treatment is medically necessary due to the severity of her symptoms and risk for suicide if discharged. She is now on a 304 involuntary commitment, has been started on Invega Sustenna, and has been referred to the [facility] long-term inpatient treatment. Referral was made on 09/07/2019, received update on 10/12/2019 that patient is officially on the waitlist. Bed date of 11/09/2019 was provided to our team on 10/25/2019. Pt updated with this information. COVID- 19 testing ordered as directed for 11/04 with repeat on 11/06 - results to be faxed. Patient isolative in her room but remains delusional with believes that she has a home in [place] she can return to, and therefore continues to be uncooperative with appropriate discharge planning and is not demonstrating ability to tolerate community re-entry. (1) Schizoaffective disorder, bipolar type: 09/03/19 -The patient has been admitted to the locked, secured behavioral health unit and has been placed in special observation room. She is also being monitored with close observations and every 15-minute direct observation. When more stable she will be actively encouraged to participate in individual, group, and activity therapies. We will also attempt to involve the family if the patient permits us to and if they agree. - Resuming medications as was rx'd at time of discharge on 08/29 including po Invega, lithium, and Sustenna. 09/03 -continue current medications, patient is taking them. -File for 306 conversion hearing to be held 09/06/2019. She will likely need referral to the psychiatric hospital hospital due to the need for long-term inpatient treatment. -Reviewed FLP and FG from recent hospitalization 08/07/2019: Cholesterol 221, glucose 109, other values within normal limits. -Attempt to involve family is able; son-in-law Poli is petitioner and was involved in hospitalization so we will ask staff to contact him for collateral information and to determine the family's ability to assist with discharge planning and housing. She has very limited supports in the community and if they are unable to assist her with housing and care, she will likely require long-term hospitalization. -Continue private room for psychosis. 09/04 - Continue current medication regimen - patient has been compliant with medications in this structured environment - 306 conversion hearing scheduled for 09/05 - Meeting with casework supervisor today to discuss treatment options and continue attempts to build rapport - Referral to [facility] is being recommended at this time has patient has repeatedly demonstrated an inability to care for self and provide for basic needs without the support of a structured psychiatric setting. - EKG (WNL). PPD was refused by patient - CXR ordered 09/05 -306 hearing held and patient converted to a 304 involuntary commitment. -Referred to [facility] for long-term inpatient treatment, as patient is severely ill and unable to provide for her own basic needs as a result of her mental illness, and treatment for 27 days on our acute unit was insufficient for successful transition to the community. She was at [facility] for 4 months within the past year, and did respond to treatment there, so returned to the psychiatric hospital hospital as recommended for long-term treatment of SPMI. -EKG and chest x-ray completed for state hospital referral. 09/06 - Continue current medication regimen - Referral to [facility] is being prepared, approval was reportedly received from the county - Ongoing attempt to build rapport with psychiatric casework supervisor 09/07 - 09/09 - Continue current medication regimen - Referral sent to [facility] on 09/07/2019 for recommended long- term psychiatric hospitalization based on chronic medication/treatment non- compliance and repeated demonstration of inability to care for self outside of a structured psychiatric setting. - Pt was informed of [facility] referral today during encounter 09/10 - Continue current medication regimen - [facility] referral sent on 09/07/2019 - requesting updates regarding when case is anticipated to be reviewed and ensure information was received - Pt continues to demand to leave, unable to appreciated the severity of her condition. Ongoing concern related to patient's repeated demonstration of inability to care for self outside of a structured psychiatric setting. 09/11 - Continue current medication regimen - Awaiting acceptance at [facility]. Ongoing concern related to patient's repeated demonstration of inability to care for self outside of a structured psychiatric setting. 09/12 - 09/14 - Pt due for next injection of Invega Sustenna 234mg IM on 09/16. Oral supplementation was continued from last hospitalization due to concern for ongoing instability with regard to psychotic symptoms. In preparation for first maintenance dose, will reduce oral supplementation to 3mg qAM and discontinue oral paliperidone on 09/16. Continue lithium 450mg BID unchanged. - Awaiting replay for [facility] regarding referral. Ongoing con cern related to patient's repeated demonstration of inability to care for self outside of a structured psychiatric setting. Pt has consistently not been agreeable to diversion planning as a result of fixed delusional beliefs that she has family support, that she has a house to live in, and that she has a lot of money - none of these statements confirmed to be true. 09/15 -Continue treatment plan as previously prescribed 09/16 -now fully converted to invega sustenna. 09/17 - Continue current treatment plan 09/18 - 09/20 - Continue current treatment plan - Confirmed that information from patient's hospitalization at our facility was received by [facility], but case has not yet been reviewed. Still awaiting determination of acceptance status. 09/21 - continue current meds and tx plan. Reinstitute medically necessary private room as hx of aggression, labile mood, poor ability to keep contact precautions with COVID, hx homelessness higher risk category 09/22 - 09/23 - continue current meds and tx plan. 09/24 continue current meds and tx plan. MNPR for now as less paranoid and more visible on unit. 09/25 - Continue current treatment plan - patient remains irritable, paranoid, and delusional - Continue MNPR for paranoia and irritability 09/26 - Continue current treatment plan - Still awaiting response from [facility], 3 weeks after initially referral packet was sent - Pt did reportedly complete her Medical Assistance application. Consider repeat meeting with the county to discuss options for diversion planning; though these remain very limited - As review of patient's treatment plan has historically been very upsetting to the patient, discharge plans have not changed, and the therapeutic value of the review is limited - discussed with patient who did agree to review her treatment plan once a week unless there are changes in the interim. This was confirmed by multiple parties and can be reviewed with greater frequency at which time patient better tolerates the conversation and the therapeutic value is increased. 09/27 - 10/01 - Continue current treatment plan - Still awaiting response from [facility] - Pt is unwilling to consider alternative housing options - she maintains the delusion that she has a penthouse in [place] which has been confirmed to be untrue. 10/02 - Continue as above - medications renewed - Still awaiting response from [facility] - Pt maintains fixed delusions that are interfering significantly with patient's ability to adequately care for herself outside of a structured/julien pervised setting 10/03 - Continue current medication regimen - 30-day treatment review; treatment plan reviewed with patient who did become angry when length of stay was reviewed. Again became acutely agitated during conversation with provider today - Pt demonstrated very loud yelling, acute agitation, and inability to appropriately communicate frustration. These concerns, in addition to numerous failed attempts at discharge, continue to be evidence as to why patient is not appropriate to be discharged to the community. - Pt is not appropriate to go outside based on episodes of acute agitation and continued delusions which interfere with patient's ability to ensure appropriate behavior 10/04 - 10/05 - Continue current medication regimen - Pt remains inappropriate to go outside - Plan remains for transfer to the [facility] - no response regarding acceptance 10/06 - 10/07 -continue current plan. Amended court order to be obtained Wednesday and sent to the [facility] for acceptance and put patient on their wait list. 10/08 - 10/10 - continue current plan. Discharge plan continues to be placement at [facility] - Pt continues to be inappropriate to go outside based on continued demands for discharge, delusional thought content, and concerns for elopement risk if taken outside the hospital setting 10/11 - Continue current treatment plan - anticipated discharge to [facility] - Did review in detail expectations related to ability to go outside. Expectations were provided to patient, who initially verbalized understanding and repeated them back to this provider. Unfortunately, when expectations were reviewed right before attempt to go outside, patient escalated and demanded discharge and stated she was not going to the [facility]. Based on this behavior, it was deemed patient was not appropriate to go outside today. - Received amended court order to reflect updated 304 commitment to [facility] - following up to formally place patient on the waitlist 10/12 - Continue current medication regimen - pt due for next Invega Sustenna injection on 10/14 - Received confirmation that patient was formally placed on the waitlist at [facility], no available bed date at this time - Pt updated on status of [facility] referral, also updated that we were informed there is another [place]-speaking patient on the unit she will be admitted to and they have two [place]-speaking staff/interpreters on service. 10/13 - Continue current medication regimen - maintenance injection of Invega Sustenna due 10/14 - Awaiting bed date at [facility] 10/14 - Continue current treatment plan - Pt tolerated first maintenance injection of Invega Sustenna ordered for today - will be due again on 11/11 for next maintenance injection - Awaiting bed date and transfer to [facility] - Pt continues to be too delusional and agitated to tolerate a visit outside, will continue to assess 10/15 - 10/19 - Continue current treatment plan - Awaiting bed date and transfer to [facility] 10/20--reviewed. Continue current meds and treatment plan pending [facility] bed date. 10/21--reviewed. Continue current meds and treatment plan pending [facility] bed date. 10/22--reviewed. Continue current meds and treatment plan pending [facility] bed date. Will add PPI for presumed reflux/?hiatal hernia hx. Would need to go off unit for abdominal films and currently NAD. 10/23 - Continue current treatment plan. - Awaiting bed date and transfer to [facility] 10/24 - Continue current treatment plan - Received update that patient will be accepted to [facility] with a bed date of 11/09/2019. - Pt updated about discharge timeline and denied questions 10/25 - Continue current treatment plan - Pt remains delusional - recently mentioning that she has an octopus in her stomach, placed there by a man who lives in [place] - Discharge to [facility] is anticipated for 11/09/2019 87 - Continue current treatment plan 10/27 -continue current treatment plan and continue gentle reality testing rajani regarding discharge plans - Discharge to [facility] is anticipated for 11/09/201910/28 pt stating in positive manner will be discharged to another hospital on 11/08 10/29 - 10/31 - Continue current treatment plan - Discharge to [facility] anticipated for 11/09/201911/01 - Medications renewed - restarting pantoprazole as patient found it effective for abdominal pain - Continue current treatment plan - Discharge to [facility] anticipated for 11/09/201911/02 - Continue current treatment plan - Discharge to [facility] anticipated for 11/09/2019 - COVID-19 testing ordered as instructed for 11/04 and 11/06, with results to be faxed once received. Pt updated on testing procedures and denied questions or concerns. 11/03 -Continue medications as prescribed -Patient aware of pending COVID-19 testing prior to discharge to [facility] 11/04 -COVID test #1 today for planned discharge to [facility] later this week (2) Noncompliance with medication regimen: 09/02 - Unable to clarify if pt has been taking her medications regularly in the days since discharge. She at first indicated that she was not then indicated the medications arein a bag of hers but did not indicate actually taking them. The patient also claims to not recall the names of any of her medications and reports that she does not have the conditions for which her known medications are clearly intended. Possible cognitive impairments. might be impacting medication compliance. language impairments with pt not speaking French impacting compliance concerns. -The patient's underlying psychiatric condition will be actively treated. It is hoped that with treatment we will be able to improve medication compliance and also address aspects that impact compliance and improve this with appropriate interventions. CANTOR form of Invega to be continued at this time, next dose not due for another 2 weeks. Pt took meds this morning that were offered to her but given her extensive non compliance prior to, during and seeming after recent admission and lack of insight to her dx and presentation and indicating that recent hospitalization was quite helpful for her and her indicating wanting to continue her medications as was rx' at end of recent [facility] admission and were instructed to take at that discharge. I am in favor of medication over objection if pt objects to taking her medication during the course of this admission or if it is determined that pt is checking or not actually taking her medications. 10/16 - Pt has continued to tolerate Invega Sustenna maintenance injections. Last received injection on 10/15/2019, due for next injections of 234mg IM on 11/11 (3) Homeless: 09/03/19 -In the past, the patient has lived with family members. However, this is clearly not an option at the present time. The context is that the patient reportedly was in halfway for approximately a year because of her making terroristic threats against the family. While it does seem clear that the family wants to help protect her, they are unable to safely provide skilled nursing. Given the patient's history of neglect of self-care, medication nonadherence, and possible cognitive deficits we are going to investigate structured residential programs as part of our discharge planning. 09/03 -patient has consistently refused assistance with housing, insisting that she has a house in [place], although has not been able to provide an address and her family states this is not true. 09/06 - Patient's grandson called unit yesterday to provide additional information, stating the patient has been homeless for quite some time and there is no valid address for the patient 09/29 pt remains delusional about having a home and is agitated if this is approached or challenged in anyway 09/30 did not discuss further today as this is a point of delusion and been shown to be refractory to challenging in anyway (4) Involuntary commitment: 09/03 -patient on a 304 IOC, readmitted on a 302. We will file for a 306 conversion hearing. 09/04 - 306 hearing scheduled for 09/05; anticipate referral to [facility]. 09/05 -306 conversion granted, now here on a 304 involuntary commitment. 09/07 - Referral packet sent to [facility] on 09/06 (5) Nicotine abuse: 09/02 - Nicotine Patch 7mg topical daily resumed, and smoking cessation to be done when pt is in more apposite mental state to do so Inventory Assets Strengths: concerned family members, pleasant on approach Needs: stable housing, improved compliance to medication and treatment plan. Risk Factors Assessment Male: No : No Do You Have Access To A Gun?: No Health Problems: No Mental Health Diagnoses: Yes Substance Use Disorders: No Previous Attempt: Yes (Per family, patient denies) Previous Psychiatric Hospitalization: Yes Hopelessness: No Smoker: Yes Protective Factors Assessment : No Responsible for Young Children: No Employed: No Stable Relationships: No Supportive Family: No Good Rapport with Provider: No Interval History Identifying Information ANDREW CYR is a 64-year-old F who currently is homeless in [facility], has a history of schizoaffective disorder, bipolar type, and was admitted on 09/03/19 05:42 on a 302 involuntary commitment for psychosis, suicidal ideation, inability to provide for basic needs, and medication noncompliance. Chief Complaint "i am an 8 out of ten". Review of Systems Sleep Information Total Hours of Sleep: 5.25 Sleep Comments: asleep by 0000 and awake at 0100 to walk in the hallway area then back to sleep at 0130. awake at 0500 and back to sleep at 0530. ate snacks at 0500. Meal Information Percent Meal Consumed - Breakfast: 100 Percent Meal Consumed - Lunch: 100 Percent Meal Consumed - Dinner: 100 Nutrition Comment: documented from the pt. meal record Subjective Subjective Patient was seen & assessed and interval progress reviewed with treatment team. Staff report no acute concerns overnight. Patient did well with COVID swab today. She is pleasant and cooperative on interview. She rates her mood 8 out of 10 today and denies any concerns apart from a little soreness in some of the muscles in her legs which she attributes to walking and stretching. Physical Exam Psychiatric Orientation: alert and cooperative Apperance: appropriately dressed and appropriately groomed Eye Contact: good eye contact Motor Behavior: steady gait and station; no psychomotor retardation, n EPS and n tremor Speech: normal rate/rhythm/volume of speech Affect: euthymic affect Mood: no depressed mood Thought Process: + concrete thought process Thought Content: + delusions Suicidal Thoughts: denies suicidal thoughts Homicidal Thoughts: denies homicidal thoughts Hallucinations: no auditory hallucinations (observed speaking to herself in room alone) Insight: + impaired insight Judgement: + impaired judgement Vital Signs (Past 24 Hours) Last Vital Signs Temp 37.3 C 11/05/19 06:41 Pulse 90 11/05/19 06:41 Resp 18 11/05/19 06:41 BP 138/92 11/05/19 06:41 Pulse Ox 95 09/03/19 05:47 . Results & Data ([facility]) Laboratory Results Laboratory Results - last 24 hr 11/05/19 11/05/19 10:00 10:00 COVID-19 Eval Order [facility] SARS-CoV-2, RNA, NAAT NEGATIVE Current Inpatient Medications Current Inpatient Medications: Current Inpatient Medications Acetaminophen (Acetaminophen 325 Mg Tab) 650 mg PO Q4H PRN PRN Reason: Headache or Minor Fever Stop: 12/02/19 07:54 Al Hydrox/Mg Hydrox/Simethicone (Aluminum/Magnesium Susp 30 Ml Udc) 30 ml PO Q4H PRN PRN Reason: GI Upset Stop: 12/02/19 07:54 Bismuth Subsalicylate (Bismuth Subsalicylate Per Ml Omnicell Charge) 15 ml PO PRN PRN PRN Reason: Loose Stool Stop: 12/02/19 07:54 Docusate Sodium (Docusate Sodium 100 Mg Cap) 100 mg PO BID CLARISA Stop: 12/02/19 07:54 Last Admin: 11/05/19 08:38 Dose: 100 mg Documented by: Haloperidol (Haloperidol 5 Mg Tab) 5 mg PO Q6H PRN PRN Reason: Agitation/Psychosis Stop: 12/02/19 07:54 Hydroxyzine HCl (Hydroxyzine Hcl 25 Mg Tab) 50 mg PO HSZ PRN PRN Reason: Insomnia Stop: 12/02/19 07:54 Hydroxyzine HCl (Hydroxyzine Hcl 25 Mg Tab) 25 mg PO Q4H PRN PRN Reason: Anxiety Stop: 12/02/19 07:54 Levothyroxine Sodium (Levothyroxine Sodium 75 Mcg Tablet) 75 mcg PO DAILYBB CLARISA Stop: 12/02/19 08:14 Last Admin: 11/05/19 08:38 Dose: 75 mcg Documented by: [place] Carbonate ([place] Carbonate 450 Mg Tabcr) 450 mg PO BID CLARISA Stop: 12/02/19 08:59 Last Admin: 11/05/19 08:39 Dose: 450 mg Documented by: Magnesium Hydroxide (Magnesium Hydroxide Susp 30 Ml Udc) 30 ml PO DAILY PRN PRN Reason: Constipation Stop: 12/02/19 07:54 Paliperidone Palmitate (Paliperidone Palmitate 234 Mg/1.5 Ml Syr) 234 mg IM Q28D@0900 CLARISA Stop: 12/12/19 10:59 Simvastatin (Simvastatin 10 Mg Tab) 10 mg PO HS CLARISA Stop: 12/02/19 20:59 Last Admin: 11/04/19 20:03 Dose: 10 mg Documented by: Sodium Chloride (Sodium Chloride 0.65% Na Soln 45 Ml ([place])) 1 - 2 sprays NA PRN PRN PRN Reason: Nasal Dryness/Congestion Stop: 12/02/19 07:54 Mental Health & Subst Abuse Tx Psychiatrist Name of Psychiatrist: . Psychiatrist's Phone Number: . Date of Appointment with Psychiatrist: 09/14/19 Time of Appointment with Psychiatrist: . Psychiatric Appointment Comment: . Therapist Name of Therapist: . Supervisor Fertilizer Processing Name of Supervisor Fertilizer Processing: [employer] - Lizzy Pandey Phone Number for Supervisor Fertilizer Processing: [phone] Post Discharge Appointments Primary Care Physician Name Of Family Doctor: [facility] Primary Care Provider Appointment Comment: [address], [place] [address]
[2019-11-05] MEDS: SIMVASTATIN 10 MG TAB PO SCH (20:21)
[2019-11-06] MEDS: LEVOTHYROXINE SODIUM 75 MCG TABLET PO SCH (07:36)
[2019-11-06] MEDS: DOCUSATE SODIUM 100 MG CAP PO SCH ×2 (08:23→21:22)
[2019-11-06] MEDS: LITHIUM CARBONATE 450 MG TABCR PO SCH ×2 (08:23→21:22)
--- NOTE | 2019-11-06 09:41 | Psychiatric Progress Note ---
Date of Service November 06, 2019 Impression / Recommendations Impression 64-year-old [place] female with schizoaffective disorder bipolar type admitted on a 302 commitment 4 days after being discharged from this unit on 08/29 after a 27-day hospitalization. She was discharged on a 304 IOC, and returned to the ER later that same day, after police were called due to bizarre behavior at a local grocery store, and was again discharged. Readmitted several days later with psychotic symptoms including paranoia, delusions of persecution (that people were trying to poison/harm her), refusing to eat with hypokalemia, homelessness, delusions that she owns a home, and inability to provide for her own basic needs. Additionally, family members who petitioned reported she made suicidal statements and walked into traffic, and reported delusions that her son had stabbed her in her intestines were hanging out. They also reported she had been noncompliant with oral psychotropic medications, and although her wrapper caser assisted her to fill these on the day of discharge, she did not bring them into the hospital with her and says she does not know where they are. She has repeatedly demonstrated complete inability to provide for her own basic needs outside of the hospital, including health, welfare, residential, food, and safety. Inpatient treatment is medically necessary due to the severity of her symptoms and risk for suicide if discharged. She is now on a 304 involuntary commitment, has been started on Invega Sustenna, and has been referred to the [facility] long-term inpatient treatment. Referral was made on 09/07/2019, received update on 10/12/2019 that patient is officially on the waitlist. Bed date of 11/09/2019 was provided to our team on 10/25/2019. Pt updated with this information. COVID- 19 testing ordered as directed for 11/04 with repeat on 11/06 - results to be faxed. Patient isolative in her room but remains delusional with believes that she has a home in [place] she can return to, and therefore continues to be uncooperative with appropriate discharge planning and is not demonstrating ability to tolerate community re-entry. (1) Schizoaffective disorder, bipolar type: 09/03/19 -The patient has been admitted to the locked, secured behavioral health unit and has been placed in special observation room. She is also being monitored with close observations and every 15-minute direct observation. When more stable she will be actively encouraged to participate in individual, group, and activity therapies. We will also attempt to involve the family if the patient permits us to and if they agree. - Resuming medications as was rx'd at time of discharge on 08/29 including po Invega, lithium, and Sustenna. 09/03 -continue current medications, patient is taking them. -File for 306 conversion hearing to be held 09/06/2019. She will likely need referral to the [facility] hospital due to the need for long-term inpatient treatment. -Reviewed FLP and FG from recent hospitalization 08/07/2019: Cholesterol 221, glucose 109, other values within normal limits. -Attempt to involve family is able; son-in-law Poli is petitioner and was involved in hospitalization so we will ask staff to contact him for collateral information and to determine the family's ability to assist with discharge planning and housing. She has very limited supports in the community and if they are unable to assist her with housing and care, she will likely require long-term hospitalization. -Continue private room for psychosis. 09/04 - Continue current medication regimen - patient has been compliant with medications in this structured environment - 306 conversion hearing scheduled for 09/05 - Meeting with wrapper caser today to discuss treatment options and continue attempts to build rapport - Referral to [facility] is being recommended at this time has patient has repeatedly demonstrated an inability to care for self and provide for basic needs without the support of a structured psychiatric setting. - EKG (WNL). PPD was refused by patient - CXR ordered 09/05 -306 hearing held and patient converted to a 304 involuntary commitment. -Referred to [facility] for long-term inpatient treatment, as patient is severely ill and unable to provide for her own basic needs as a result of her mental illness, and treatment for 27 days on our acute unit was insufficient for successful transition to the community. She was at [facility] for 4 months within the past year, and did respond to treatment there, so returned to the [facility] hospital as recommended for long-term treatment of SPMI. -EKG and chest x-ray completed for state hospital referral. 09/06 - Continue current medication regimen - Referral to [facility] is being prepared, approval was reportedly received from the county - Ongoing attempt to build rapport with psychiatric wrapper caser 09/07 - 09/09 - Continue current medication regimen - Referral sent to [facility] on 09/07/2019 for recommended long- term psychiatric hospitalization based on chronic medication/treatment non- compliance and repeated demonstration of inability to care for self outside of a structured psychiatric setting. - Pt was informed of [facility] referral today during encounter 09/10 - Continue current medication regimen - [facility] referral sent on 09/07/2019 - requesting updates regarding when case is anticipated to be reviewed and ensure information was received - Pt continues to demand to leave, unable to appreciated the severity of her condition. Ongoing concern related to patient's repeated demonstration of inability to care for self outside of a structured psychiatric setting. 09/11 - Continue current medication regimen - Awaiting acceptance at [facility]. Ongoing concern related to patient's repeated demonstration of inability to care for self outside of a structured psychiatric setting. 09/12 - 09/14 - Pt due for next injection of Invega Sustenna 234mg IM on 09/16. Oral supplementation was continued from last hospitalization due to concern for ongoing instability with regard to psychotic symptoms. In preparation for first maintenance dose, will reduce oral supplementation to 3mg qAM and discontinue oral paliperidone on 09/16. Continue lithium 450mg BID unchanged. - Awaiting replay for [facility] regarding referral. Ongoing con cern related to patient's repeated demonstration of inability to care for self outside of a structured psychiatric setting. Pt has consistently not been agreeable to diversion planning as a result of fixed delusional beliefs that she has family support, that she has a house to live in, and that she has a lot of money - none of these statements confirmed to be true. 09/15 -Continue treatment plan as previously prescribed 09/16 -now fully converted to invega sustenna. 09/17 - Continue current treatment plan 09/18 - 09/20 - Continue current treatment plan - Confirmed that information from patient's hospitalization at our facility was received by [facility], but case has not yet been reviewed. Still awaiting determination of acceptance status. 09/21 - continue current meds and tx plan. Reinstitute medically necessary private room as hx of aggression, labile mood, poor ability to keep contact precautions with COVID, hx homelessness higher risk category 09/22 - 09/23 - continue current meds and tx plan. 09/24 continue current meds and tx plan. MNPR for now as less paranoid and more visible on unit. 09/25 - Continue current treatment plan - patient remains irritable, paranoid, and delusional - Continue MNPR for paranoia and irritability 09/26 - Continue current treatment plan - Still awaiting response from [facility], 3 weeks after initially referral packet was sent - Pt did reportedly complete her Medical Assistance application. Consider repeat meeting with the county to discuss options for diversion planning; though these remain very limited - As review of patient's treatment plan has historically been very upsetting to the patient, discharge plans have not changed, and the therapeutic value of the review is limited - discussed with patient who did agree to review her treatment plan once a week unless there are changes in the interim. This was confirmed by multiple parties and can be reviewed with greater frequency at which time patient better tolerates the conversation and the therapeutic value is increased. 09/27 - 10/01 - Continue current treatment plan - Still awaiting response from [facility] - Pt is unwilling to consider alternative housing options - she maintains the delusion that she has a penthouse in [place] which has been confirmed to be untrue. 10/02 - Continue as above - medications renewed - Still awaiting response from [facility] - Pt maintains fixed delusions that are interfering significantly with patient's ability to adequately care for herself outside of a structured/julien pervised setting 10/03 - Continue current medication regimen - 30-day treatment review; treatment plan reviewed with patient who did become angry when length of stay was reviewed. Again became acutely agitated during conversation with provider today - Pt demonstrated very loud yelling, acute agitation, and inability to appropriately communicate frustration. These concerns, in addition to numerous failed attempts at discharge, continue to be evidence as to why patient is not appropriate to be discharged to the community. - Pt is not appropriate to go outside based on episodes of acute agitation and continued delusions which interfere with patient's ability to ensure appropriate behavior 10/04 - 10/05 - Continue current medication regimen - Pt remains inappropriate to go outside - Plan remains for transfer to the [facility] - no response regarding acceptance 10/06 - 10/07 -continue current plan. Amended court order to be obtained Wednesday and sent to the [facility] for acceptance and put patient on their wait list. 10/08 - 10/10 - continue current plan. Discharge plan continues to be placement at [facility] - Pt continues to be inappropriate to go outside based on continued demands for discharge, delusional thought content, and concerns for elopement risk if taken outside the hospital setting 10/11 - Continue current treatment plan - anticipated discharge to [facility] - Did review in detail expectations related to ability to go outside. Expectations were provided to patient, who initially verbalized understanding and repeated them back to this provider. Unfortunately, when expectations were reviewed right before attempt to go outside, patient escalated and demanded discharge and stated she was not going to the [facility]. Based on this behavior, it was deemed patient was not appropriate to go outside today. - Received amended court order to reflect updated 304 commitment to [facility] - following up to formally place patient on the waitlist 10/12 - Continue current medication regimen - pt due for next Invega Sustenna injection on 10/14 - Received confirmation that patient was formally placed on the waitlist at [facility], no available bed date at this time - Pt updated on status of [facility] referral, also updated that we were informed there is another [place]-speaking patient on the unit she will be admitted to and they have two [place]-speaking staff/interpreters on service. 10/13 - Continue current medication regimen - maintenance injection of Invega Sustenna due 10/14 - Awaiting bed date at [facility] 10/14 - Continue current treatment plan - Pt tolerated first maintenance injection of Invega Sustenna ordered for today - will be due again on 11/11 for next maintenance injection - Awaiting bed date and transfer to [facility] - Pt continues to be too delusional and agitated to tolerate a visit outside, will continue to assess 10/15 - 10/19 - Continue current treatment plan - Awaiting bed date and transfer to [facility] 10/20--reviewed. Continue current meds and treatment plan pending [facility] bed date. 10/21--reviewed. Continue current meds and treatment plan pending [facility] bed date. 10/22--reviewed. Continue current meds and treatment plan pending [facility] bed date. Will add PPI for presumed reflux/?hiatal hernia hx. Would need to go off unit for abdominal films and currently NAD. 10/23 - Continue current treatment plan. - Awaiting bed date and transfer to [facility] 10/24 - Continue current treatment plan - Received update that patient will be accepted to [facility] with a bed date of 11/09/2019. - Pt updated about discharge timeline and denied questions 10/25 - Continue current treatment plan - Pt remains delusional - recently mentioning that she has an octopus in her stomach, placed there by a man who lives in [place] - Discharge to [facility] is anticipated for 11/09/201910/26 - Continue current treatment plan 10/27 -continue current treatment plan and continue gentle reality testing rajani regarding discharge plans - Discharge to [facility] is anticipated for 11/09/201910/28 pt stating in positive manner will be discharged to another hospital on 11/08 10/29 - 10/31 - Continue current treatment plan - Discharge to [facility] anticipated for 11/09/201911/01 - Medications renewed - restarting pantoprazole as patient found it effective for abdominal pain - Continue current treatment plan - Discharge to [facility] anticipated for 11/09/201911/02 - Continue current treatment plan - Discharge to [facility] anticipated for 11/09/2019 - COVID-19 testing ordered as instructed for 11/04 and 11/06, with results to be faxed once received. Pt updated on testing procedures and denied questions or concerns. 11/03 -Continue medications as prescribed -Patient aware of pending COVID-19 testing prior to discharge to [facility] 11/04 -COVID test #1 today for planned discharge to [facility] later this week 11/05 - Continue current medication regimen - Next COVID text due tomorrow; initial test on 11/04 with negative result - Anticipate discharge to [facility] on 11/08 (2) Noncompliance with medication regimen: 09/02 - Unable to clarify if pt has been taking her medications regularly in the days since discharge. She at first indicated that she was not then indicated the medications arein a bag of hers but did not indicate actually taking them. The patient also claims to not recall the names of any of her medications and reports that she does not have the conditions for which her known medications are clearly intended. Possible cognitive impairments. might be impacting medication compliance. language impairments with pt not speaking Uzbek impacting compliance concerns. -The patient's underlying psychiatric condition will be actively treated. It is hoped that with treatment we will be able to improve medication compliance and also address aspects that impact compliance and improve this with appropriate interventions. CANTOR form of Invega to be continued at this time, next dose not due for another 2 weeks. Pt took meds this morning that were offered to her but given her extensive non compliance prior to, during and seeming after recent admission and lack of insight to her dx and presentation and indicating that recent hospitalization was quite helpful for her and her indicating wanting to continue her medications as was rx' at end of recent [facility] admission and were instructed to take at that discharge. I am in favor of medication over objection if pt objects to taking her medication during the course of this admission or if it is determined that pt is checking or not actually taking her medications. 10/16 - Pt has continued to tolerate Invega Sustenna maintenance injections. Last received injection on 10/15/2019, due for next injections of 234mg IM on 11/11 (3) Homeless: 09/03/19 -In the past, the patient has lived with family members. However, this is clearly not an option at the present time. The context is that the patient reportedly was in halfway for approximately a year because of her making terroristic threats against the family. While it does seem clear that the family wants to help protect her, they are unable to safely provide residential. Given the patient's history of neglect of self-care, medication nonadherence, and possible cognitive deficits we are going to investigate structured residential programs as part of our discharge planning. 09/03 -patient has consistently refused assistance with housing, insisting that she has a house in [place], although has not been able to provide an address and her family states this is not true. 09/06 - Patient's grandson called unit yesterday to provide additional information, stating the patient has been homeless for quite some time and there is no valid address for the patient 09/29 pt remains delusional about having a home and is agitated if this is approached or challenged in anyway 09/30 did not discuss further today as this is a point of delusion and been shown to be refractory to challenging in anyway (4) Involuntary commitment: 09/03 -patient on a 304 IOC, readmitted on a 302. We will file for a 306 conversion hearing. 09/04 - 306 hearing scheduled for 09/05; anticipate referral to [facility]. 09/05 -306 conversion granted, now here on a 304 involuntary commitment. 09/07 - Referral packet sent to [facility] on 09/06 (5) Nicotine abuse: 09/02 - Nicotine Patch 7mg topical daily resumed, and smoking cessation to be done when pt is in more apposite mental state to do so Inventory Assets Strengths: concerned family members, pleasant on approach Needs: stable housing, improved compliance to medication and treatment plan. Risk Factors Assessment Male: No : No Do You Have Access To A Gun?: No Health Problems: No Mental Health Diagnoses: Yes Substance Use Disorders: No Previous Attempt: Yes (Per family, patient denies) Previous Psychiatric Hospitalization: Yes Hopelessness: No Smoker: Yes Protective Factors Assessment : No Responsible for Young Children: No Employed: No Stable Relationships: No Supportive Family: No Good Rapport with Provider: No Interval History Identifying Information ANDREW CYR is a 64-year-old F who currently is homeless in [facility], has a history of schizoaffective disorder, bipolar type, and was admitted on 09/03/19 05:42 on a 302 involuntary commitment for psychosis, suicidal ideation, inability to provide for basic needs, and medication noncompliance. Chief Complaint "Good." Review of Systems Notes Constitutional: denied Cardiovascular: denied Respiratory: denied Gastrointestinal: denied Neurological: denied Psychiatric: denies symptoms other than stated above Total of at least 10 systems reviewed, pertinent positives as above and in HPI. Sleep Information Total Hours of Sleep: 3.75 Sleep Comments: asleep by 0000 and awake at 0100 to walk in the hallway area then back to sleep at 0130. awake at 0500 and back to sleep at 0530. ate snacks at 0500. Meal Information Percent Meal Consumed - Breakfast: 100 Percent Meal Consumed - Lunch: 100 Percent Meal Consumed - Dinner: 100 Nutrition Comment: per meal record Subjective Subjective Patient was seen & assessed and interval progress reviewed with treatment team. Staff report patient's behavior has been unchanged. Pt tolerated initial COVID- 19 nasal swab, negative result on first test. Pt was seen today to assess progress since admission. [place] conversation was conducted with assistance from [facility] interpretive service - Renan #[id number]. Pt reports she is "good." Pt denies any physical concerns at this time. Pt was reminded of repeat COVID-19 test scheduled for tomorrow, she denied complaints. Pt states that she still has not received any additional belongings from her family. Pt believes her daughter is planning to bring in some additional clothing, but is not certain of this. Pt denied other needs or concerns at this time. Physical Exam Psychiatric Orientation: alert and cooperative (superficially ) Apperance: appropriately dressed (casually, in t-shirt and leggings) and + disheveled (appearing somewhat unkempt, hair is a bit messy) Eye Contact: + fair eye contact Motor Behavior: steady gait and station (observed to be pacing around room at times) and no abnormal motor movements Speech: normal rate/rhythm/volume of speech (brief responses to questions) Affect: + blunted affect Mood: no depressed mood ("Good") Thought Process: goal directed thought process and + concrete thought process Thought Content: + delusions (ongoing, though less preoccupied with them at this time) Suicidal Thoughts: denies suicidal thoughts Homicidal Thoughts: denies homicidal thoughts Hallucinations: patient continues to deny, though there are ongoing observations of patient talking to herself in her room Cognition: attention grossly intact and language grossly intact Insight: + impaired insight Judgement: + impaired judgement Vital Signs (Past 24 Hours) Last Vital Signs Temp 36.8 C 11/06/19 06:00 Pulse 72 11/06/19 06:33 Resp 16 11/06/19 06:00 BP 128/77 11/06/19 06:33 Pulse Ox 95 09/03/19 05:47 . Results & Data ([facility]) Laboratory Results Laboratory Results - last 24 hr 11/05/19 11/05/19 10:00 10:00 COVID-19 Eval Order Covid19 [facility]Now [facility] SARS-CoV-2, RNA, NAAT NEGATIVE Current Inpatient Medications Current Inpatient Medications: Current Inpatient Medications Acetaminophen (Acetaminophen 325 Mg Tab) 650 mg PO Q4H PRN PRN Reason: Headache or Minor Fever Stop: 12/02/19 07:54 Al Hydrox/Mg Hydrox/Simethicone (Aluminum/Magnesium Susp 30 Ml Udc) 30 ml PO Q4H PRN PRN Reason: GI Upset Stop: 12/02/19 07:54 Bismuth Subsalicylate (Bismuth Subsalicylate Per Ml Omnicell Charge) 15 ml PO PRN PRN PRN Reason: Loose Stool Stop: 12/02/19 07:54 Docusate Sodium (Docusate Sodium 100 Mg Cap) 100 mg PO BID CLARISA Stop: 12/02/19 07:54 Last Admin: 11/06/19 08:23 Dose: 100 mg Documented by: Haloperidol (Haloperidol 5 Mg Tab) 5 mg PO Q6H PRN PRN Reason: Agitation/Psychosis Stop: 12/02/19 07:54 Hydroxyzine HCl (Hydroxyzine Hcl 25 Mg Tab) 50 mg PO HSZ PRN PRN Reason: Insomnia Stop: 12/02/19 07:54 Hydroxyzine HCl (Hydroxyzine Hcl 25 Mg Tab) 25 mg PO Q4H PRN PRN Reason: Anxiety Stop: 12/02/19 07:54 Levothyroxine Sodium (Levothyroxine Sodium 75 Mcg Tablet) 75 mcg PO DAILYBB [facility] Stop: 12/02/19 08:14 Last Admin: 11/06/19 07:36 Dose: 75 mcg Documented by: Zachary Carbonate (Zachary Carbonate 450 Mg Tabcr) 450 mg PO BID [facility] Stop: 12/02/19 08:59 Last Admin: 11/06/19 08:23 Dose: 450 mg Documented by: Magnesium Hydroxide (Magnesium Hydroxide Susp 30 Ml Udc) 30 ml PO DAILY PRN PRN Reason: Constipation Stop: 12/02/19 07:54 Paliperidone Palmitate (Paliperidone Palmitate 234 Mg/1.5 Ml Syr) 234 mg IM Q28D@0900 [facility] Stop: 12/12/19 10:59 Simvastatin (Simvastatin 10 Mg Tab) 10 mg PO HS CLARISA Stop: 12/02/19 20:59 Last Admin: 11/05/19 20:21 Dose: 10 mg Documented by: Sodium Chloride (Sodium Chloride 0.65% Na Soln 45 Ml ([place])) 1 - 2 sprays NA PRN PRN PRN Reason: Nasal Dryness/Congestion Stop: 12/02/19 07:54 Mental Health & Subst Abuse Tx Psychiatrist Name of Psychiatrist: . Psychiatrist's Phone Number: . Date of Appointment with Psychiatrist: 09/14/19 Time of Appointment with Psychiatrist: . Psychiatric Appointment Comment: . Therapist Name of Therapist: . Network Applications Specialist Name of Network Applications Specialist: [facility] [employer] [facility] - Lizzy [place] Phone Number for Network Applications Specialist: [phone] Post Discharge Appointments Primary Care Physician Name Of Family Doctor: [facility] Primary Care Provider Appointment Comment: [id number], [address], [place] [address]
[2019-11-06] MEDS: SIMVASTATIN 10 MG TAB PO SCH (21:22)
[2019-11-07] MEDS: LITHIUM CARBONATE 450 MG TABCR PO SCH ×2 (08:03→20:32)
[2019-11-07] MEDS: LEVOTHYROXINE SODIUM 75 MCG TABLET PO SCH (08:03)
[2019-11-07] MEDS: DOCUSATE SODIUM 100 MG CAP PO SCH ×2 (08:03→20:32)
--- NOTE | 2019-11-07 11:04 | Psychiatric Progress Note ---
Date of Service November 07, 2019 Impression / Recommendations Impression 64-year-old Omani female with schizoaffective disorder bipolar type admitted on a 302 commitment 4 days after being discharged from this unit on 08/29 after a 27-day hospitalization. She was discharged on a 304 IOC, and returned to the ER later that same day, after police were called due to bizarre behavior at a local grocery store, and was again discharged. Readmitted several days later with psychotic symptoms including paranoia, delusions of persecution (that people were trying to poison/harm her), refusing to eat with hypokalemia, homelessness, delusions that she owns a home, and inability to provide for her own basic needs. Additionally, family members who petitioned reported she made suicidal statements and walked into traffic, and reported delusions that her son had stabbed her and her intestines were hanging out. They also reported she had been noncompliant with oral psychotropic medications, and although her watch case polisher assisted her to fill these on the day of discharge, she did not bring them into the hospital with her and did not know what happened to them. She has repeatedly demonstrated complete inability to provide for her own basic needs outside of the hospital, including health, welfare, alf, food, and safety. Inpatient treatment is medically necessary due to the severity of her symptoms and risk for suicide if discharged. She is now on a 304 involuntary commitment, has been started on Invega Sustenna, and has been referred to the [facility] long-term inpatient treatment. Referral was made on 09/07/2019, placed on their wait list on 10/12/2019, bed date 11/09/2019. COVID-19 testing ordered as directed at the [facility] for 11/04 and 11/06. Patient isolative in her room but remains delusional with believes that she has a home in [place] she can return to, in denial that family have a PFA against her, and continues to be uncooperative with appropriate discharge planning and is not demonstrating ability to tolerate community re-entry. (1) Schizoaffective disorder, bipolar type: 09/03/19 -The patient has been admitted to the locked, secured behavioral health unit and has been placed in special observation room. She is also being monitored with close observations and every 15-minute direct observation. When more stable she will be actively encouraged to participate in individual, group, and activity therapies. We will also attempt to involve the family if the patient permits us to and if they agree. - Resuming medications as was rx'd at time of discharge on 08/29 including po Invega, lithium, and Sustenna. 09/03 -continue current medications, patient is taking them. -File for 306 conversion hearing to be held 09/06/2019. She will likely need referral to the [facility] due to the need for long-term inpatient treatment. -Reviewed FLP and FG from recent hospitalization 08/07/2019: Cholesterol 221, glucose 109, other values within normal limits. -Attempt to involve family is able; son-in-law Poli is petitioner and was involved in hospitalization so we will ask staff to contact him for collateral information and to determine the family's ability to assist with discharge planning and housing. She has very limited supports in the community and if they are unable to assist her with housing and care, she will likely require long-term hospitalization. -Continue private room for psychosis. 09/04 - Continue current medication regimen - patient has been compliant with medications in this structured environment - 306 conversion hearing scheduled for 09/05 - Meeting with watch case polisher today to discuss treatment options and continue attempts to build rapport - Referral to [facility] is being recommended at this time has patient has repeatedly demonstrated an inability to care for self and provide for basic needs without the support of a structured psychiatric setting. - EKG (WNL). PPD was refused by patient - CXR ordered 09/05 -306 hearing held and patient converted to a 304 involuntary commitment. -Referred to [facility] for long-term inpatient treatment, as patient is severely ill and unable to provide for her own basic needs as a result of her mental illness, and treatment for 27 days on our acute unit was insufficient for successful transition to the community. She was at [facility] for 4 months within the past year, and did respond to treatment there, so returned to the [facility] as recommended for long-term treatment of SPMI. -EKG and chest x-ray completed for state hospital referral. 09/06 - Continue current medication regimen - Referral to [facility] is being prepared, approval was reportedly received from the county - Ongoing attempt to build rapport with psychiatric watch case polisher 09/07 - 09/09 - Continue current medication regimen - Referral sent to [facility] on 09/07/2019 for recommended long- term psychiatric hospitalization based on chronic medication/treatment non- compliance and repeated demonstration of inability to care for self outside of a structured psychiatric setting. - Pt was informed of [facility] referral today during encounter 09/10 - Continue current medication regimen - [facility] referral sent on 09/07/2019 - requesting updates regarding when case is anticipated to be reviewed and ensure information was received - Pt continues to demand to leave, unable to appreciated the severity of her condition. Ongoing concern related to patient's repeated demonstration of inability to care for self outside of a structured psychiatric setting. 09/11 - Continue current medication regimen - Awaiting acceptance at [facility]. Ongoing concern related to patient's repeated demonstration of inability to care for self outside of a structured psychiatric setting. 09/12 - 09/14 - Pt due for next injection of Invega Sustenna 234mg IM on 09/16. Oral supplementation was continued from last hospitalization due to concern for ongoing instability with regard to psychotic symptoms. In preparation for first maintenance dose, will reduce oral supplementation to 3mg qAM and discontinue oral paliperidone on 09/16. Continue lithium 450mg BID unchanged. - Awaiting replay for [facility] regarding referral. Ongoing concern related to patient's repeated demonstration of inability to care for self outside of a structured psychiatric setting. Pt has consistently not been agreeable to diversion planning as a result of fixed delusional beliefs that she has family support, that she has a house to live in, and that she has a lot of money - none of these statements confirmed to be true. 09/15 -Continue treatment plan as previously prescribed 09/16 -now fully converted to invega sustenna. 09/17 - Continue current treatment plan 09/18 - 09/20 - Continue current treatment plan - Confirmed that information from patient's hospitalization at our facility was received by [facility], but case has not yet been reviewed. Still awaiting determination of acceptance status. 09/21 - continue current meds and tx plan. Reinstitute medically necessary private room as hx of aggression, labile mood, poor ability to keep contact precautions with COVID, hx homelessness higher risk category 09/22 - 09/23 - continue current meds and tx plan. 09/24 continue current meds and tx plan. MNPR for now as less paranoid and more visible on unit. 09/25 - Continue current treatment plan - patient remains irritable, paranoid, and delusional - Continue MNPR for paranoia and irritability 09/26 - Continue current treatment plan - Still awaiting response from [facility], 3 weeks after initially referral packet was sent - Pt did reportedly complete her Medical Assistance application. Consider repeat meeting with the county to discuss options for diversion planning; though these remain very limited - As review of patient's treatment plan has historically been very upsetting to the patient, discharge plans have not changed, and the therapeutic value of the review is limited - discussed with patient who did agree to review her treatment plan once a week unless there are changes in the interim. This was confirmed by multiple parties and can be reviewed with greater frequency at which time patient better tolerates the conversation and the therapeutic value is increased. 09/27 - 10/01 - Continue current treatment plan - Still awaiting response from [facility] - Pt is unwilling to consider alternative housing options - she maintains the delusion that she has a penthouse in [place] which has been confirmed to be untrue. 10/02 - Continue as above - medications renewed - Still awaiting response from [facility] - Pt maintains fixed delusions that are interfering significantly with patient's ability to adequately care for herself outside of a structured/supervised setting 10/03 - Continue current medication regimen - 30-day treatment review; treatment plan reviewed with patient who did become angry when length of stay was reviewed. Again became acutely agitated during conversation with provider today - Pt demonstrated very loud yelling, acute agitation, and inability to appropriately communicate frustration. These concerns, in addition to numerous failed attempts at discharge, continue to be evidence as to why patient is not appropriate to be discharged to the community. - Pt is not appropriate to go outside based on episodes of acute agitation and continued delusions which interfere with patient's ability to ensure appro priate behavior 10/04 - 10/05 - Continue current medication regimen - Pt remains inappropriate to go outside - Plan remains for transfer to the [facility] - no response regarding acceptance 10/06 - 10/07 -continue current plan. Amended court order to be obtained Wednesday and sent to the [facility] for acceptance and put patient on their wait list. 10/08 - 10/10 - continue current plan. Discharge plan continues to be placement at [facility] - Pt continues to be inappropriate to go outside based on continued demands for discharge, delusional thought content, and concerns for elopement risk if taken outside the hospital setting 10/11 - Continue current treatment plan - anticipated discharge to [facility] - Did review in detail expectations related to ability to go outside. Expectations were provided to patient, who initially verbalized understanding and repeated them back to this provider. Unfortunately, when expectations were reviewed right before attempt to go outside, patient escalated and demanded discharge and stated she was not going to the [facility]. Based on this behavior, it was deemed patient was not appropriate to go outside today. - Received amended court order to reflect updated 304 commitment to [facility] - following up to formally place patient on the waitlist 10/12 - Continue current medication regimen - pt due for next Invega Sustenna injection on 10/14 - Received confirmation that patient was formally placed on the waitlist at [facility], no available bed date at this time - Pt updated on status of [facility] referral, also updated that we were informed there is another Kinyarwanda-speaking patient on the unit she will be admitted to and they have two Kinyarwanda-speaking staff/interpreters on service. 10/13 - Continue current medication regimen - maintenance injection of Invega Sustenna due 10/14 - Awaiting bed date at [facility] 10/14 - Continue current treatment plan - Pt tolerated first maintenance injection of Invega Sustenna ordered for today - will be due again on 11/11 for next maintenance injection - Awaiting bed date and transfer to [facility] - Pt continues to be too delusional and agitated to tolerate a visit outside, will continue to assess 10/15 - 10/19 - Continue current treatment plan - Awaiting bed date and transfer to [facility] 10/20--reviewed. Continue current meds and treatment plan pending [facility] bed date. 10/21--reviewed. Continue current meds and treatment plan pending [facility] bed date. 10/22--reviewed. Continue current meds and treatment plan pending [facility] bed date. Will add PPI for presumed reflux/?hiatal hernia hx. Would need to go off unit for abdominal films and currently NAD. 10/23 - Continue current treatment plan. - Awaiting bed date and transfer to [facility] 10/24 - Continue current treatment plan - Received update that patient will be accepted to [facility] with a bed date of 11/09/2019. - Pt updated about discharge timeline and denied questions 10/25 - Continue current treatment plan - Pt remains delusional - recently mentioning that she has an octopus in her stomach, placed there by a man who lives in [place] - Discharge to [facility] is anticipated for 11/09/201910/26 - Continue current treatment plan 10/27 -continue current treatment plan and continue gentle reality testing rajani regarding discharge plans - Discharge to [facility] is anticipated for 11/09/201910/28 pt stating in positive manner will be discharged to another hospital on 11/08 10/29 - 10/31 - Continue current treatment plan - Discharge to [facility] anticipated for 11/09/201911/01 - Medications renewed - restarting pantoprazole as patient found it effective for abdominal pain - Continue current treatment plan - Discharge to [facility] anticipated for 11/09/201911/02 - Continue current treatment plan - Discharge to [facility] anticipated for 11/09/2019 - COVID-19 testing ordered as instructed for 11/04 and 11/06, with results to be faxed once received. Pt updated on testing procedures and denied questions or concerns. 11/03 -Continue medications as prescribed -Patient aware of pending COVID-19 testing prior to discharge to [facility] 11/04 -COVID test #1 today for planned discharge to [facility] later this week 11/05 - Continue current medication regimen - Next COVID text due tomorrow; initial test on 11/04 with negative result - Anticipate discharge to [facility] on 11/08 11/06 -Patient is medically cleared for transfer to the [facility]. No active medical conditions currently. (2) Noncompliance with medication regimen: 09/02 - Unable to clarify if pt has been taking her medications regularly in the days since discharge. She at first indicated that she was not then manjeet cated the medications arein a bag of hers but did not indicate actually taking them. The patient also claims to not recall the names of any of her medications and reports that she does not have the conditions for which her known medications are clearly intended. Possible cognitive impairments. might be impacting medication compliance. language impairments with pt not speaking Bangladeshi impacting compliance concerns. -The patient's underlying psychiatric condition will be actively treated. It is hoped that with treatment we will be able to improve medication compliance and also address aspects that impact compliance and improve this with appropriate interventions. SAKSHI form of Invega to be continued at this time, next dose not due for another 2 weeks. Pt took meds this morning that were offered to her but given her extensive non compliance prior to, during and seeming after recent admission and lack of insight to her dx and presentation and indicating that recent hospitalization w as quite helpful for her and her indicating wanting to continue her medications as was rx' at end of recent [facility] admission and were instructed to take at that discharge. I am in favor of medication over objection if pt objects to taking her medication during the course of this admission or if it is determined that pt is checking or not actually taking her medications. 10/16 - Pt has continued to tolerate Invega Sustenna maintenance injections. Last received injection on 10/15/2019, due for next injections of 234mg IM on 11/11 (3) Homeless: 09/03/19 -In the past, the patient has lived with family members. However, this is clearly not an option at the present time. The context is that the patient reportedly was in residential for approximately a year because of her making terroristic threats against the family. While it does seem clear that the family wants to help protect her, they are unable to safely provide alf. Given the patient's history of neglect of self-care, medication nonadherence, and possible cognitive deficits we are going to investigate structured residential programs as part of our discharge planning. 09/03 -patient has consistently refused assistance with housing, insisting that she has a house in [place], although has not been able to provide an address and her family states this is not true. 09/06 - Patient's grandson called unit yesterday to provide additional information, stating the patient has been homeless for quite some time and there is no valid address for the patient 09/29 pt remains delusional about having a home and is agitated if this is approached or challenged in anyway 09/30 did not discuss further today as this is a point of delusion and been shown to be refractory to challenging in anyway (4) Involuntary commitment: 09/03 -patient on a 304 IOC, readmitted on a 302. We will file for a 306 conversion hearing. 09/04 - 306 hearing scheduled for 09/05; anticipate referral to [facility]. 09/05 -306 conversion granted, now here on a 304 involuntary commitment. 09/07 - Referral packet sent to [facility] on 09/06 (5) Nicotine abuse: 09/02 - Nicotine Patch 7mg topical daily resumed, and smoking cessation to be done when pt is in more apposite mental state to do so Inventory Assets Strengths: concerned family members, pleasant on approach Needs: stable housing, improved compliance to medication and treatment plan. Risk Factors Assessment Male: No : No Do You Have Access To A Gun?: No Health Problems: No Mental Health Diagnoses: Yes Substance Use Disorders: No Previous Attempt: Yes (Per family, patient denies) Previous Psychiatric Hospitalization: Yes Hopelessness: No Smoker: Yes Protective Factors Assessment : No Responsible for Young Children: No Employed: No Stable Relationships: No Supportive Family: No Good Rapport with Provider: No Interval History Identifying Information ANDREW CYR is a 64-year-old F with a history of schizoaffective disorder, bipolar type, who was admitted on 09/03/19 05:42 on a 302 involuntary commitment for psychosis, suicidal ideation, inability to provide for basic needs, and medication noncompliance. Chief Complaint " Good thank you". Review of Systems Notes Denies aches, pains, diarrhea, constipation, urinary symptoms, nausea, vomiting, lightheadedness, gait unsteadiness, falls, shortness of breath, cough, wheezing, chest pain or tightness. Sleep Information Total Hours of Sleep: 5 Meal Information Percent Meal Consumed - Breakfast: 100 Percent Meal Consumed - Lunch: 100 Percent Meal Consumed - Dinner: 100 Nutrition Comment: per meal record Subjective Subjective Patient was seen & assessed and interval progress reviewed with nursing and social work. She was seen with latin dancer #[id number]. Patient reports her mood is "good," and denies problems with sleep, anxiety, and appetite. She continues to states that she has a home in [place], and will not accept that her family has a PFA against her. She had her first COVID test the [facility] which was negative, and her second is scheduled for tomorrow. She was informed of the plans for transfer to [facility] in 2 days, leaving in the morning, and denied having any questions about this. She denies any ph ysical concerns. Physical Exam Psychiatric Orientation: alert and cooperative Apperance: appropriately dressed, appropriately groomed and appeared stated age Overweight, seated on the edge of her bed in no acute distress Eye Contact: + fair eye contact Motor Behavior: steady gait and station and no abnormal motor movements Speech: normal rate/rhythm/volume of speech Speaks Kinyarwanda Affect: euthymic affect and mood congruent with affect "Good." Thought Process: goal directed thought process Thought Content: + delusions Suicidal Thoughts: denies suicidal thoughts Homicidal Thoughts: denies homicidal thoughts Hallucinations: no auditory hallucinations But observed talking animatedly when no one else is in the room. Cognition: attention grossly intact Insight: + impaired insight Judgement: + impaired judgement Vital Signs (Past 24 Hours) Last Vital Signs Temp 36.5 C 11/07/19 05:45 Pulse 88 11/07/19 05:45 Resp 18 11/07/19 05:45 BP 130/80 11/07/19 05:45 Pulse Ox 95 09/03/19 05:47 . Results & Data ([facility]) Laboratory Results Laboratory Results - last 24 hr 11/07/19 11/07/19 10:35 10:35 COVID-19 Eval Order Covid19 [facility] SARS-CoV-2, RNA, NAAT Pending Current Inpatient Medications Current Inpatient Medications: Current Inpatient Medications Acetaminophen (Acetaminophen 325 Mg Tab) 650 mg PO Q4H PRN PRN Reason: Headache or Minor Fever Stop: 12/02/19 07:54 Al Hydrox/Mg Hydrox/Simethicone (Aluminum/Magnesium Susp 30 Ml Udc) 30 ml PO Q4H PRN PRN Reason: GI Upset Stop: 12/02/19 07:54 Bismuth Subsalicylate (Bismuth Subsalicylate Per Ml Omnicell Charge) 15 ml PO PRN PRN PRN Reason: Loose Stool Stop: 12/02/19 07:54 Docusate Sodium (Docusate Sodium 100 Mg Cap) 100 mg PO BID CLARISA Stop: 12/02/19 07:54 Last Admin: 11/07/19 08:03 Dose: 100 mg Documented by: Haloperidol (Haloperidol 5 Mg Tab) 5 mg PO Q6H PRN PRN Reason: Agitation/Psychosis Stop: 12/02/19 07:54 Hydroxyzine HCl (Hydroxyzine Hcl 25 Mg Tab) 50 mg PO HSZ PRN PRN Reason: Insomnia Stop: 12/02/19 07:54 Hydroxyzine HCl (Hydroxyzine Hcl 25 Mg Tab) 25 mg PO Q4H PRN PRN Reason: Anxiety Stop: 12/02/19 07:54 Levothyroxine Sodium (Levothyroxine Sodium 75 Mcg Tablet) 75 mcg PO DAILYBB CLARISA Stop: 12/02/19 08:14 Last Admin: 11/07/19 08:03 Dose: 75 mcg Documented by: [place] Carbonate ([place] Carbonate 450 Mg Tabcr) 450 mg PO BID CLARISA Stop: 12/02/19 08:59 Last Admin: 11/07/19 08:03 Dose: 450 mg Documented by: Magnesium Hydroxide (Magnesium Hydroxide Susp 30 Ml Udc) 30 ml PO DAILY PRN PRN Reason: Constipation Stop: 12/02/19 07:54 Paliperidone Palmitate (Paliperidone Palmitate 234 Mg/1.5 Ml Syr) 234 mg IM Q28D@0900 CLARISA Stop: 12/12/19 10:59 Simvastatin (Simvastatin 10 Mg Tab) 10 mg PO HS CLARISA Stop: 12/02/19 20:59 Last Admin: 11/06/19 21:22 Dose: 10 mg Documented by: Sodium Chloride (Sodium Chloride 0.65% Na Soln 45 Ml ([place])) 1 - 2 sprays NA PRN PRN PRN Reason: Nasal Dryness/Congestion Stop: 12/02/19 07:54 Mental Health & Subst Abuse Tx Psychiatrist Name of Psychiatrist: . Psychiatrist's Phone Number: . Date of Appointment with Psychiatrist: 09/14/19 Time of Appointment with Psychiatrist: . Psychiatric Appointment Comment: . Therapist Name of Therapist: . Half Sole Fitter Name of Half Sole Fitter: [facility] Lizzy Pandey Phone Number for Half Sole Fitter: [phone] Post Discharge Appointments Primary Care Physician Name Of Family Doctor: [facility] Primary Care Provider Appointment Comment: [id number], [address], [place] [address]
[2019-11-07] MEDS: SIMVASTATIN 10 MG TAB PO SCH (20:33)
[2019-11-08] MEDS: DOCUSATE SODIUM 100 MG CAP PO SCH ×2 (07:59→20:50)
[2019-11-08] MEDS: LITHIUM CARBONATE 450 MG TABCR PO SCH ×2 (07:59→20:50)
[2019-11-08] MEDS: LEVOTHYROXINE SODIUM 75 MCG TABLET PO SCH (07:59)
--- NOTE | 2019-11-08 08:52 | Psychiatric Progress Note ---
Date of Service November 08, 2019 Impression / Recommendations Impression 64-year-old Beninese female with schizoaffective disorder bipolar type admitted on a 302 commitment 4 days after being discharged from this unit on 08/29 after a 27-day hospitalization. She was discharged on a 304 IOC, and returned to the ER later that same day, after police were called due to bizarre behavior at a local grocery store, and was again discharged. Readmitted several days later with psychotic symptoms including paranoia, delusions of persecution (that people were trying to poison/harm her), refusing to eat with hypokalemia, homelessness, delusions that she owns a home, and inability to provide for her own basic needs. Additionally, family members who petitioned reported she made suicidal statements and walked into traffic, and reported delusions that her son had stabbed her and her intestines were hanging out. They also reported she had been noncompliant with oral psychotropic medications, and although her correctional counselor/case manager assisted her to fill these on the day of discharge, she did not bring them into the hospital with her and did not know what happened to them. She has repeatedly demonstrated complete inability to provide for her own basic needs outside of the hospital, including health, welfare, usp, food, and safety. She has now been here 66 days, and is scheduled to transfer to the [facility] tomorrow. Inpatient treatment is medically necessary due to the severity of her symptoms and risk for suicide if discharged. She is isolative in her room and remains delusional with beliefs that she has a home in [place] she can return to, in denial that family have a PFA against her, and continues to be uncooperative with appropriate discharge planning and is not demonstrating ability to tolerate community re-entry. (1) Schizoaffective disorder, bipolar type: 09/03/19 -The patient has been admitted to the locked, secured behavioral health unit and has been placed in special observation room. She is also being monitored with close observations and every 15-minute direct observation. When more stable she will be actively encouraged to participate in individual, group, and activity therapies. We will also attempt to involve the family if the patient permits us to and if they agree. - Resuming medications as was rx'd at time of discharge on 08/29 including po Invega, lithium, and Sustenna. 09/03 -continue current medications, patient is taking them. -File for 306 conversion hearing to be held 09/06/2019. She will likely need referral to the [facility] due to the need for long-term inpatient treatment. -Reviewed FLP and FG from recent hospitalization 08/07/2019: Cholesterol 221, glucose 109, other values within normal limits. -Attempt to involve family is able; son-in-law Poli is petitioner and was involved in hospitalization so we will ask staff to contact him for collateral information and to determine the family's ability to assist with discharge planning and housing. She has very limited supports in the community and if they are unable to assist her with housing and care, she will likely require long-term hospitalization. -Continue private room for psychosis. 09/04 - Continue current medication regimen - patient has been compliant with medications in this structured environment - 306 conversion hearing scheduled for 09/05 - Meeting with correctional counselor/case manager today to discuss treatment options and continue attempts to build rapport - Referral to [facility] is being recommended at this time has patient has repeatedly demonstrated an inability to care for self and provide for basic needs without the support of a structured psychiatric setting. - EKG (WNL). PPD was refused by patient - CXR ordered 09/05 -306 hearing held and patient converted to a 304 involuntary commitment. -Referred to [facility] for long-term inpatient treatment, as patient is severely ill and unable to provide for her own basic needs as a result of her mental illness, and treatment for 27 days on our acute unit was insufficient for successful transition to the community. She was at [facility] for 4 months within the past year, and did respond to treatment there, so returned to the [facility] as recommended for long-term treatment of SPMI. -EKG and chest x-ray completed for [facility] referral. 09/06 - Continue current medication regimen - Referral to [facility] is being prepared, approval was reportedly received from the [facility] - Ongoing attempt to build rapport with psychiatric correctional counselor/case manager 09/07 - 09/09 - Continue current medication regimen - Referral sent to [facility] on 09/07/2019 for recommended long- term psychiatric hospitalization based on chronic medication/treatment non- compliance and repeated demonstration of inability to care for self outside of a structured psychiatric setting. - Pt was informed of [facility] referral today during encounter 09/10 - Continue current medication regimen - [facility] referral sent on 09/07/2019 - requesting updates regarding when case is anticipated to be reviewed and ensure information was received - Pt continues to demand to leave, unable to appreciated the severity of her condition. Ongoing concern related to patient's repeated demonstration of inability to care for self outside of a structured psychiatric setting. 09/11 - Continue current medication regimen - Awaiting acceptance at [facility]. Ongoing concern related to patient's repeated demonstration of inability to care for self outside of a structured psychiatric setting. 09/12 - 09/14 - Pt due for next injection of Invega Sustenna 234mg IM on 09/16. Oral supplementation was continued from last hospitalization due to concern for ongoing instability with regard to psychotic symptoms. In preparation for first maintenance dose, will reduce oral supplementation to 3mg qAM and discontinue oral paliperidone on 09/16. Continue lithium 450mg BID unchanged. - Awaiting replay for [facility] regarding referral. Ongoing concern related to patient's repeated demonstration of inability to care for self outside of a structured psychiatric setting. Pt has consistently not been agreeable to diversion planning as a result of fixed delusional beliefs that she has family support, that she has a house to live in, and that she has a lot of money - none of these statements confirmed to be true. 09/15 -Continue treatment plan as previously prescribed 09/16 -now fully converted to invega sustenna. 09/17 - Continue current treatment plan 09/18 - 09/20 - Continue current treatment plan - Confirmed that information from patient's hospitalization at our facility was received by [facility], but case has not yet been reviewed. Still awaiting determination of acceptance status. 09/21 - continue current meds and tx plan. Reinstitute medically necessary private room as hx of aggression, labile mood, poor ability to keep contact precautions with COVID, hx homelessness higher risk category 09/22 - 09/23 - continue current meds and tx plan. 09/24 continue current meds and tx plan. MNPR for now as less paranoid and more visible on unit. 09/25 - Continue current treatment plan - patient remains irritable, paranoid, and delusional - Continue MNPR for paranoia and irritability 09/26 - Continue current treatment plan - Still awaiting response from [facility], 3 weeks after initially referral packet was sent - Pt did reportedly complete her Medical Assistance application. Consider repeat meeting with the county to discuss options for diversion planning; though these remain very limited - As review of patient's treatment plan has historically been very upsetting to the patient, discharge plans have not changed, and the therapeutic value of the review is limited - discussed with patient who did agree to review her treatment plan once a week unless there are changes in the interim. This was confirmed by multiple parties and can be reviewed with greater frequency at which time patient better tolerates the conversation and the therapeutic value is increased. 09/27 - 10/01 - Continue current treatment plan - Still awaiting response from [facility] - Pt is unwilling to consider alternative housing options - she maintains the delusion that she has a penthouse in [place] which has been confirmed to be untrue. 10/02 - Continue as above - medications renewed - Still awaiting response from [facility] - Pt maintains fixed delusions that are interfering significantly with patient's ability to adequately care for herself outside of a structured/supervised setting 10/03 - Continue current medication regimen - 30-day treatment review; treatment plan reviewed with patient who did become angry when length of stay was reviewed. Again became acutely agitated during conversation with provider today - Pt demonstrated very loud yelling, acute agitation, and inability to appropriately communicate frustration. These concerns, in addition to numerous failed attempts at discharge, continue to be evidence as to why patient is not appropriate to be discharged to the community. - Pt is not appropriate to go outside based on episodes of acute agitation and continued delusions which interfere with patient's ability to ensure appropriate behavior 10/04 - 10/05 - Continue current medication regimen - Pt remains inappropriate to go outside - Plan remains for transfer to the [facility] - no response regarding acceptance 10/06 - 10/07 -continue current plan. Amended court order to be obtained Wednesday and sent to the [facility] for acceptance and put patient on their wait list. 10/08 - 10/10 - continue current plan. Discharge plan continues to be placement at [facility] - Pt continues to be inappropriate to go outside based on continued demands for discharge, delusional thought content, and concerns for elopement risk if taken outside the hospital setting 10/11 - Continue current treatment plan - anticipated discharge to [facility] - Did review in detail expectations related to ability to go outside. Expectations were provided to patient, who initially verbalized understanding and repeated them back to this provider. Unfortunately, when expectations were reviewed right before attempt to go outside, patient escalated and demanded discharge and stated she was not going to the [facility]. Based on this behavior, it was deemed patient was not appropriate to go outside today. - Received amended court order to reflect updated 304 commitment to [facility] - following up to formally place patient on the waitlist 10/12 - Continue current medication regimen - pt due for next Invega Sustenna injection on 10/14 - Received confirmation that patient was formally placed on the waitlist at [facility], no available bed date at this time - Pt updated on status of [facility] referral, also updated that we were informed there is another Comoran-speaking patient on the unit she will be admitted to and they have two Comoran-speaking staff/interpreters on service. 10/13 - Continue current medication regimen - maintenance injection of Invega Sustenna due 10/14 - Awaiting bed date at [facility] 10/14 - Continue current treatment plan - Pt tolerated first maintenance injection of Invega Sustenna ordered for today - will be due again on 11/11 for next maintenance injection - Awaiting bed date and transfer to [facility] - Pt continues to be too delusional and agitated to tolerate a visit outside, will continue to assess 10/15 - 10/19 - Continue current treatment plan - Awaiting bed date and transfer to [facility] 10/20--reviewed. Continue current meds and treatment plan pending [facility] bed date. 10/21--reviewed. Continue current meds and treatment plan pending [facility] bed date. 10/22--reviewed. Continue current meds and treatment plan pending [facility] bed date. Will add PPI for presumed reflux/?hiatal hernia hx. Would need to go off unit for abdominal films and currently NAD. 10/23 - Continue current treatment plan. - Awaiting bed date and transfer to [facility] 10/24 - Continue current treatment plan - Received update that patient will be accepted to [facility] with a bed date of 11/09/2019. - Pt updated about discharge timeline and denied questions 10/25 - Continue current treatment plan - Pt remains delusional - recently mentioning that she has an octopus in her stomach, placed there by a man who lives in [place] - Discharge to [facility] is anticipated for 11/09/201910/26 - Continue current treatment plan 10/27 -continue current treatment plan and continue gentle reality testing rajani regarding discharge plans - Discharge to [facility] is anticipated for 11/09/201910/28 pt stating in positive manner will be discharged to another hospital on 11/08 10/29 - 10/31 - Continue current treatment plan - Discharge to [facility] anticipated for 11/09/201911/01 - Medications renewed - restarting pantoprazole as patient found it effective for abdominal pain - Continue current treatment plan - Discharge to [facility] anticipated for 11/09/201911/02 - Continue current treatment plan - Discharge to [facility] anticipated for 11/09/2019 - COVID-19 testing ordered as instructed for 11/04 and 11/06, with results to be faxed once received. Pt updated on testing procedures and denied questions or concerns. 11/03 -Continue medications as prescribed -Patient aware of pending COVID-19 testing prior to discharge to [facility] 11/04 -COVID test #1 today for planned discharge to [facility] later this week 11/05 - Continue current medication regimen - Next COVID text due tomorrow; initial test on 11/04 with negative result - Anticipate discharge to [facility] on 11/08 11/06-Patient is medically cleared for transfer to the [facility]. No active medical conditions currently. 11/07 - Condition unchanged. Second COVID test negative today. (2) Noncompliance with medication regimen: 09/02 - Unable to clarify if pt has been taking her medications regularly in the days since discharge. She at first indicated that she was not then indicated the medications arein a bag of hers but did not indicate actually taking them. The patient also claims to not recall the names of any of her medications and reports that she does not have the conditions for which her known medications are clearly intended. Possible cognitive impairments. might be impacting medication compliance. language impairments with pt not speaking Greek impacting compliance concerns. -The patient's underlying psychiatric condition will be actively treated. It is hoped that with treatment we will be able to improve medication compliance and also address aspects that impact compliance and improve this with appropriate interventions. CANTOR form of Invega to be continued at this time, next dose not due for another 2 weeks. Pt took meds this morning that were offered to her but given her extensive non compliance prior to, during and seeming after recent admission and lack of insight to her dx and presentation and indicating that recent hospitalization was quite helpful for her and her indicating wanting to continue her medications as was rx' at end of recent [facility] admission and were instructed to take at that discharge. I am in favor of medication over objection if pt objects to taking her medication during the course of this admission or if it is determined that pt is checking or not actually taking her medications. 10/16 - Pt has continued to tolerate Invega Sustenna maintenance injections. Last received injection on 10/15/2019, due for next injections of 234mg IM on 11/11 (3) Homeless: 09/03/19 -In the past, the patient has lived with family members. However, this is clearly not an option at the present time. The context is that the patient reportedly was in group home for approximately a year because of her making terroristic threats against the family. While it does seem clear that the family wants to help protect her, they are unable to safely provide usp. Gi cinda the patient's history of neglect of self-care, medication nonadherence, and possible cognitive deficits we are going to investigate structured residential programs as part of our discharge planning. 09/03 -patient has consistently refused assistance with housing, insisting that she has a house in [place], although has not been able to provide an address and her family states this is not true. 09/06 - Patient's grandson called unit yesterday to provide additional information, stating the patient has been homeless for quite some time and there is no valid address for the patient 09/29 pt remains delusional about having a home and is agitated if this is approached or challenged in anyway 09/30 did not discuss further today as this is a point of delusion and been shown to be refractory to challenging in anyway (4) Involuntary commitment: 09/03 -patient on a 304 IOC, readmitted on a 302. We will file for a 306 conversion hearing. 09/04 - 306 hearing scheduled for 09/05; anticipate referral to [facility]. 09/05 -306 conversion granted, now here on a 304 involuntary commitment. 09/07 - Referral packet sent to [facility] on 09/06 (5) Nicotine abuse: 09/02 - Nicotine Patch 7mg topical daily resumed, and smoking cessation to be done when pt is in more apposite mental state to do so Inventory Assets Strengths: concerned family members, pleasant on approach Needs: stable housing, improved compliance to medication and treatment plan. Risk Factors Assessment Male: No : No Do You Have Access To A Gun?: No Health Problems: No Mental Health Diagnoses: Yes Substance Use Disorders: No Previous Attempt: Yes (Per family, patient denies) Previous Psychiatric Hospitalization: Yes Hopelessness: No Smoker: Yes Protective Factors Assessment : No Responsible for Young Children: No Employed: No Stable Relationships: No Supportive Family: No Good Rapport with Provider: No Interval History Identifying Information ANDREW CYR is a 64-year-old F with a history of schizoaffective disorder, bipolar type, who was admitted on 09/03/19 05:42 on a 302 involuntary commitment for psychosis, suicidal ideation, inability to provide for basic needs, and medication noncompliance. Chief Complaint " Good thank you". Review of Systems Notes Denies cough, SOB, fatigue, nausea, vomiting, diarrhea, constipation, chills, muscle pain, loss of taste or smell, sore throat Sleep Information Total Hours of Sleep: 5 Sleep Comments: asleep by 0000 and awake at 0100 to walk in the hallway area then back to sleep at 0130. awake at 0500 and back to sleep at 0530. ate snacks at 0500. Meal Information Percent Meal Consumed - Breakfast: 100 Percent Meal Consumed - Lunch: 100 Percent Meal Consumed - Dinner: 100 Nutrition Comment: per meal record Subjective Subjective Patient was seen & assessed and interval progress reviewed with treatment team. Staff report she has been calm and cooperative, mostly in her room, listening to music. Seen with medical interpreter #[id number]. On my assessment, she reports her mood is good, she is looking forward to transitioning to the [facility] tomorrow. She says she spoke to her daughter on the phone and she was supposed to bring in close for the patient, but never showed up. She says she is spending her time listening to music and walking. She is not attending groups. She maintains that she has a home in [place] to return to. She is taking medications without difficulty, and denies thoughts of harming herself or others. Physical Exam Psychiatric Orientation: alert and cooperative Apperance: appropriately dressed, appropriately groomed and appeared stated age Eye Contact: good eye contact Motor Behavior: steady gait and station and no abnormal motor movements Speech: normal rate/rhythm/volume of speech Speaks Comoran Affect: euthymic affect and mood congruent with affect "Good." Thought Process: goal directed thought process Thought Content: reality based without delusions Suicidal Thoughts: denies suicidal thoughts Homicidal Thoughts: denies homicidal thoughts Hallucinations: no auditory hallucinations and no visual hallucinations Cognition: attention grossly intact and language grossly intact Insight: + impaired insight Judgement: + impaired judgement Vital Signs (Past 24 Hours) Last Vital Signs Temp 36.7 C 11/08/19 06:53 Pulse 76 11/08/19 06:54 Resp 18 11/08/19 06:53 BP 124/78 11/08/19 06:54 Pulse Ox 95 09/03/19 05:47 . Results & Data ([facility]) Laboratory Results Laboratory Results - last 24 hr 11/07/19 11/07/19 10:35 10:35 COVID-19 Eval [facility] SARS-CoV-2, RNA, NAAT NEGATIVE Current Inpatient Medications Current Inpatient Medications: Current Inpatient Medications Acetaminophen (Acetaminophen 325 Mg Tab) 650 mg PO Q4H PRN PRN Reason: Headache or Minor Fever Stop: 12/02/19 07:54 Al Hydrox/Mg Hydrox/Simethicone (Aluminum/Magnesium Susp 30 Ml Udc) 30 ml PO Q4H PRN PRN Reason: GI Upset Stop: 12/02/19 07:54 Bismuth Subsalicylate (Bismuth Subsalicylate Per Ml Omnicell Charge) 15 ml PO PRN PRN PRN Reason: Loose Stool Stop: 12/02/19 07:54 Docusate Sodium (Docusate Sodium 100 Mg Cap) 100 mg PO BID CLARISA Stop: 12/02/19 07:54 Last Admin: 11/08/19 07:59 Dose: 100 mg Documented by: Haloperidol (Haloperidol 5 Mg Tab) 5 mg PO Q6H PRN PRN Reason: Agitation/Psychosis Stop: 12/02/19 07:54 Hydroxyzine HCl (Hydroxyzine Hcl 25 Mg Tab) 50 mg PO HSZ PRN PRN Reason: Insomnia Stop: 12/02/19 07:54 Hydroxyzine HCl (Hydroxyzine Hcl 25 Mg Tab) 25 mg PO Q4H PRN PRN Reason: Anxiety Stop: 12/02/19 07:54 Levothyroxine Sodium (Levothyroxine Sodium 75 Mcg Tablet) 75 mcg PO DAILYBB CLARISA Stop: 12/02/19 08:14 Last Admin: 11/08/19 07:59 Dose: 75 mcg Documented by: [place] Carbonate ([place] Carbonate 450 Mg Tabcr) 450 mg PO BID CLARISA Stop: 12/02/19 08:59 Last Admin: 11/08/19 07:59 Dose: 450 mg Documented by: Magnesium Hydroxide (Magnesium Hydroxide Susp 30 Ml Udc) 30 ml PO DAILY PRN PRN Reason: Constipation Stop: 12/02/19 07:54 Paliperidone Palmitate (Paliperidone Palmitate 234 Mg/1.5 Ml Syr) 234 mg IM Q28D@0900 CLARISA Stop: 12/12/19 10:59 Simvastatin (Simvastatin 10 Mg Tab) 10 mg PO HS [facility] Stop: 12/02/19 20:59 Last Admin: 11/07/19 20:33 Dose: 10 mg Documented by: Sodium Chloride (Sodium Chloride 0.65% Na Soln 45 Ml ([place])) 1 - 2 sprays NA PRN PRN PRN Reason: Nasal Dryness/Congestion Stop: 12/02/19 07:54 Mental Health & Subst Abuse Tx Psychiatrist Name of Psychiatrist: . Psychiatrist's Phone Number: . Date of Appointment with Psychiatrist: 09/14/19 Time of Appointment with Psychiatrist: . Psychiatric Appointment Comment: . Therapist Name of Therapist: . [employer] Senior Sergeant Name of [employer] Senior Sergeant: [employer] Lizzy Pandey Phone Number for [employer] Senior Sergeant: [phone] Post Discharge Appointments Primary Care Physician Name Of Family Doctor: [facility] Primary Care Provider Appointment Comment: [id number], [address], [place] [address]
--- NOTE | 2019-11-08 12:15 | Communication Note ---
Date of Service: November 08, 2019 Medical clearance for [facility]: Patient has been on our unit for 66 days, and during that time has been medically stable. Her only medical condition is hypothyroidism, and she has been continued on her home dose of levothyroxine here. Vital signs have been within normal limits and stable throughout her hospitalization. She has not had fever, cough, shortness of break/difficulty breathing, Excessive Fatigue, Nausea/Vomiting, Diarrhea, Chills/Shaking, Muscle Pain, New loss of Taste/Smell, or Sore Throat. She is free of COVID symptoms, has been screened and has no symptoms, and had COVID 19 testing per [facility]'s request on 11/05/2019 and 11/07/2019, both are negative. She is medically stable for transfer to the [facility] tomorrow.
[2019-11-08] MEDS: SIMVASTATIN 10 MG TAB PO SCH (20:50)
[2019-11-09] MEDS: LITHIUM CARBONATE 450 MG TABCR PO SCH (08:25)
[2019-11-09] MEDS: DOCUSATE SODIUM 100 MG CAP PO SCH (08:25)
[2019-11-09] MEDS: LEVOTHYROXINE SODIUM 75 MCG TABLET PO SCH (08:25)
--- NOTE | 2019-11-09 10:28 | Discharge Summary ---
Date of Service November 09, 2019 History of Present Illness The patient is a 63-year-old woman with a long history of psychotic illness as well as a history of multiple psychiatric hospitalizations, including at least 2 previous admissions to the behavioral health unit at [facility], most recent one from [id number] for similar presentation. Pt has had a ER visit at [facility] a day of discharge and then this ER visit leading to this 302 admission. She is reported to have been walking in and out of traffic dodging cars with disorganized thinking and behaviors leading to this behavior. Paranoid delusional thinking of family members seeking to kill her. She lowered her pants while outside to attempt to show how her intestines were coming out of her body. She is not fluent in Afghan and interview was conducted with interpretive services through the IPAD program that [facility] uses. She expressed lack of insight into her condition and into her presentation and recent behaviors. She denied any symptoms or concerns f her mood.She kain oat know her medications and appears to have not been taking them since discharge 4 days ago. She feels her family members sometimes understand her but sometimes do not. She denied AH or VH or paranoid or disorganized thinking while exhibit some disorganization to her thinking during the interview. No overt responding to internal stimuli though during this interview. It is noted that the family has an active PFA order against her. Additional information is currently being sought from the longterm health records, and from [facility] where she reportedly had previously been a patient. According the patient, she has no psychiatric illness and does not recall the name of any of her medications. laughing inappropriate at times, given meds rx'd pt likely has GERDm hypothyroidism and dyslipidemia but pt does not endorse these medical conditions Physical Exam Psychiatric Orientation: alert and cooperative Apperance: appropriately dressed, appropriately groomed and appeared stated age Eye Contact: good eye contact Motor Behavior: steady gait and station and no abnormal motor movements Speech: normal rate/rhythm/volume of speech Affect: euthymic affect Thought Content: + delusions Cognition: attention grossly intact Insight: + impaired insight Judgement: + impaired judgement Vital Signs (Past 24 Hours) Last Vital Signs Temp 36.6 C 11/09/19 09:38 Pulse 93 H 11/09/19 09:38 Resp 18 11/09/19 09:38 BP 127/76 11/09/19 09:38 Pulse Ox 95 11/09/19 09:38 . Principal Diagnosis Schizoaffective disorder, bipolar type Treatment nonadherence Psychiatric Data The patient was hospitalized for 67 days. She was resumed on medications that had worked for her during her previous hospitalization, which lasted 27 days, and although she had only been out of the hospital for 4 days, she had been noncompliant with her medications in that time period, with multiple police contacts and 2 ER visits before she was readmitted. She had a 306 conversion hearing on 09/06/2019, and was referred to the [facility] for long-term inpatient treatment on 09/07/2019. Her outpatient lead case manager was involved in treatment planning, and met with the patient's multiple times to attempt to build rapport with her. The patient demonstrated no insight into her illness, and maintained delusions throughout her hospital stay that she has a home in [place] (confirmed that this was not true with multiple family members), and often referenced multiple family members that she lived with, including her mother and , who are not even in the country, and as far as we know she is not . The patient refused to acknowledge that some of her family members have a PFA against her, despite having been in longterm for about a year as a result of violating the PFA. Multiple attempts were made to involve her family in treatment, as they were contacting the unit and speaking with the patient, but they were not helpful and said they could not offer any assistance to the patient. They did confirm that she has been homeless for some time and has no other local supports. Her lead case manager had explored assisting her to return to [place], as she is currently here illegally, but neither she nor the family had resources for travel and government agencies were unwilling to deport her. Her paranoia and irritability improved, although she continued to have episodes of irritability at times. She often became angry when her length of stay was reviewed. She was unwilling to work on housing, maintaining a delusion that she owned "a penthouse" in [place]. At times she became focused on wanting to leave the hospital and would repeatedly demanded to be discharged. She did not attend or participate in groups, and often isolated in her room. She enjoyed listening to music and walking laps around the unit. She was often observed talking to unseen others, but denied hallucinations. She had been started on Invega Sustenna during her previous hospitalization here, with the initial loading doses on 08/13/2019 and 08/17/2019. Her most recent Invega Sustenna injection (234 mg) was received on 10/15/2019. She was tapered off of oral Invega, and continued on lithium, simvastatin, and levothyroxine. She was medically stable throughout her stay with good appetite and oral intake. Day of Discharge Assessment Patient has been reporting good mood and consistently denying suicidal thoughts. She denies hallucinations, but is often observed talking to unseen others. She isolates in her room and spends her time listening to music or walking in the hallways. She is eating and sleeping well, and taking medications as prescribed. She expresses understanding of transfer to the [facility], and continues to endorse delusions that she has a penthouse home in [place] that she can return to, that her family does not have a PFA against her, and that she has "plenty of money," despite evidence to the contrary when she was in the community. Transition of Care Transition Of Care Record: was reviewed with the patient Advance Directives Advance Directives Information Provided: Yes Advance Directives: No Mental Health Advance Directive: No Advance Directives on File: No Living Will: No Power of Energy Manager: No Advance Directives Reason:: Declines as Mental Health Visit. Risk Factors Assessment Risk factors were mitigated by use of medications specifically long-acting injectable antipsychotics due to history of noncompliance, coordination of care with [facility] ID/blended lead case manager, referral to the [facility] for long-term treatment. Male: No : No Do You Have Access To A Gun?: No Health Problems: No Mental Health Diagnoses: Yes Substance Use Disorders: No Previous Attempt: Yes (Per family, patient denies) Previous Psychiatric Hospitalization: Yes Hopelessness: No Smoker: Yes Protective Factors Assessment : No Responsible for Young Children: No Employed: No Stable Relationships: No Supportive Family: No Good Rapport with Provider: No Tobacco Cessation at Discharge Tobacco Cessation Medication Prescribed at Discharge: Not Applicable/Non-Smoker Total Time Total Time Spent: Greater Than 30 Minutes Total Time Includes: Examination of the patient, Discharge Planning and Medication Reconciliation Discharge Data Lab Results 09/03/19 09/03/19 09/03/19 00:11 00:11 00:11 WBC 12.32 H RBC 4.59 Hgb 13.1 Hct 41.1 MCV 89.5 MCH 28.5 MCHC 31.9 L RDW Std Deviation 45.2 RDW Coeff of Ronald 13.8 Plt Count 413 H MPV 9.6 Immature Gran % (Auto) 0.2 Neut % (Auto) 77.5 Lymph % (Auto) 14.4 Warren % (Auto) 7.0 Eos % (Auto) 0.6 Baso % (Auto) 0.3 Immature Gran # (Auto) 0.02 Neut # (Auto) 9.55 H Lymph # (Auto) 1.78 Warren # (Auto) 0.86 H Eos # (Auto) 0.07 Baso # (Auto) 0.04 Sodium 138 Potassium 3.1 L Chloride 104 Carbon Dioxide 25 Anion Gap 9.0 BUN 12 Creatinine 0.85 Est Cr Clr Drug Dosing 67.1 Est GFR ( Amer) 85.7 Est GFR (Non-Af Amer) 74.0 BUN/Creatinine Ratio 14.0 Glucose 123 H Calcium 8.8 Total Bilirubin 0.6 AST 23 ALT 30 Alkaline Phosphatase 108 Total Protein 8.8 H Albumin 3.7 Globulin 5.1 H Albumin/Globulin Ratio 0.7 L TSH 2.430 Urine Color Urine Appearance Urine pH Ur Specific Dawson Urine Protein Urine Glucose (UA) Urine Ketones Urine Blood Urine Nitrite Urine Bilirubin Urine Urobilinogen Ur Leukocyte Esterase Urine WBC (Auto) Urine RBC (Auto) U Hyaline Cast (Auto) U Epithel Cells (Auto) Urine Bacteria (Auto) Salicylates 1.8 L Urine Opiates Screen Ur Methadone, Qual Acetaminophen < 2 L Urine Barbiturates Ur Phencyclidine (PCP) U Amphetamin/Meth Scrn MDMA (Ecstasy) Screen U Benzodiazepines Scrn Toronto Ur Cocaine Metabolite U Marijuana (THC) Screen Ethyl Alcohol mg/dL COVID-19 Eval Order SARS-CoV-2, RNA, NAAT 09/03/19 09/03/19 09/03/19 00:11 00:11 00:11 WBC RBC Hgb Hct MCV MCH MCHC RDW Std Deviation RDW Coeff of Ronald Plt Count MPV Immature Gran % (Auto) Neut % (Auto) Lymph % (Auto) Warren % (Auto) Eos % (Auto) Baso % (Auto) Immature Gran # (Auto) Neut # (Auto) Lymph # (Auto) Warren # (Auto) Eos # (Auto) Baso # (Auto) Sodium Potassium Chloride Carbon Dioxide Anion Gap BUN Creatinine Est Cr Clr Drug Dosing Est GFR ( Amer) Est GFR (Non-Af Amer) BUN/Creatinine Ratio Glucose Calcium Total Bilirubin AST ALT Alkaline Phosphatase Total Protein Albumin Globulin Albumin/Globulin Ratio TSH Urine Color Dark Yellow Urine Appearance Clear Urine pH 5.0 Ur Specific Dawson 1.027 Urine Protein 1+ H Urine Glucose (UA) Negative Urine Ketones Trace H Urine Blood 2+ H Urine Nitrite Negative Urine Bilirubin Negative Urine Urobilinogen Negative Ur Leukocyte Esterase 2+ H Urine WBC (Auto) >30 H Urine RBC (Auto) 5-10 H U Hyaline Cast (Auto) 5-10 H U Epithel Cells (Auto) 10-20 H Urine Bacteria (Auto) Negative Salicylates Urine Opiates Screen Neg Ur Methadone, Qual Neg Acetaminophen Urine Barbiturates Neg Ur Phencyclidine (PCP) Neg U Amphetamin/Meth Scrn Neg MDMA (Ecstasy) Screen Neg U Benzodiazepines Scrn Neg Toronto Ur Cocaine Metabolite Neg U Marijuana (THC) Screen Neg Ethyl Alcohol mg/dL < 3.0 COVID-19 Eval Order SARS-CoV-2, RNA, NAAT 09/03/19 11/05/19 11/05/19 06:10 10:00 10:00 WBC RBC Hgb Hct MCV MCH MCHC RDW Std Deviation RDW Coeff of Ronald Plt Count MPV Immature Gran % (Auto) Neut % (Auto) Lymph % (Auto) Warren % (Auto) Eos % (Auto) Baso % (Auto) Immature Gran # (Auto) Neut # (Auto) Lymph # (Auto) Warren # (Auto) Eos # (Auto) Baso # (Auto) Sodium Potassium Chloride Carbon Dioxide Anion Gap BUN Creatinine Est Cr Clr Drug Dosing Est GFR ( Amer) Est GFR (Non-Af Amer) BUN/Creatinine Ratio Glucose Calcium Total Bilirubin AST ALT Alkaline Phosphatase Total Protein Albumin Globulin Albumin/Globulin Ratio TSH Urine Color Urine Appearance Urine pH Ur Specific Dawson Urine Protein Urine Glucose (UA) Urine Ketones Urine Blood Urine Nitrite Urine Bilirubin Urine Urobilinogen Ur Leukocyte Esterase Urine WBC (Auto) Urine RBC (Auto) U Hyaline Cast (Auto) U Epithel Cells (Auto) Urine Bacteria (Auto) Salicylates Urine Opiates Screen Ur Methadone, Qual Acetaminophen Urine Barbiturates Ur Phencyclidine (PCP) U Amphetamin/Meth Scrn MDMA (Ecstasy) Screen U Benzodiazepines Scrn Toronto < 0.2 L Ur Cocaine Metabolite U Marijuana (THC) Screen Ethyl Alcohol mg/dL COVID-19 Eval Order Covid19 [facility] SARS-CoV-2, RNA, NAAT NEGATIVE 11/07/19 11/07/19 10:35 10:35 WBC RBC Hgb Hct MCV MCH MCHC RDW Std Deviation RDW Coeff of Ronald Plt Count MPV Immature Gran % (Auto) Neut % (Auto) Lymph % (Auto) Warren % (Auto) Eos % (Auto) Baso % (Auto) Immature Gran # (Auto) Neut # (Auto) Lymph # (Auto) Warren # (Auto) Eos # (Auto) Baso # (Auto) Sodium Potassium Chloride Carbon Dioxide Anion Gap BUN Creatinine Est Cr Clr Drug Dosing Est GFR ( Amer) Est GFR (Non-Af Amer) BUN/Creatinine Ratio Glucose Calcium Total Bilirubin AST ALT Alkaline Phosphatase Total Protein Albumin Globulin Albumin/Globulin Ratio TSH Urine Color Urine Appearance Urine pH Ur Specific Dawson Urine Protein Urine Glucose (UA) Urine Ketones Urine Blood Urine Nitrite Urine Bilirubin Urine Urobilinogen Ur Leukocyte Esterase Urine WBC (Auto) Urine RBC (Auto) U Hyaline Cast (Auto) U Epithel Cells (Auto) Urine Bacteria (Auto) Salicylates Urine Opiates Screen Ur Methadone, Qual Acetaminophen Urine Barbiturates Ur Phencyclidine (PCP) U Amphetamin/Meth Scrn MDMA (Ecstasy) Screen U Benzodiazepines Scrn Toronto Ur Cocaine Metabolite U Marijuana (THC) Screen Ethyl Alcohol mg/dL COVID-19 Eval Order Covid19 [facility] SARS-CoV-2, RNA, NAAT NEGATIVE Hospital Course (1) Schizoaffective disorder, bipolar type: Next injection due 11/12/2019. 09/03/19 -The patient has been admitted to the locked, secured behavioral health unit and has been placed in special observation room. She is also being monitored with close observations and every 15-minute direct observation. When more stable she will be actively encouraged to participate in individual, group, and activity therapies. We will also attempt to involve the family if the patient permits us to and if they agree. - Resuming medications as was rx'd at time of discharge on 08/29 including po Invega, lithium, and Sustenna. 09/03 -continue current medications, patient is taking them. -File for 306 conversion hearing to be held 09/06/2019. She will likely need referral to the [facility] due to the need for long-term inpatient treatment. -Reviewed FLP and FG from recent hospitalization 08/07/2019: Cholesterol 221, glucose 109, other values within normal limits. -Attempt to involve family is able; son-in-law Poli is petitioner and was involved in hospitalization so we will ask staff to contact him for collateral information and to determine the family's ability to assist with discharge planning and housing. She has very limited supports in the community and if they are unable to assist her with housing and care, she will likely require long-term hospitalization. -Continue private room for psychosis. 09/04 - Continue current medication regimen - patient has been compliant with medications in this structured environment - 306 conversion hearing scheduled for 09/05 - Meeting with lead case manager today to discuss treatment options and continue attempts to build rapport - Referral to [facility] is being recommended at this time has patient has repeatedly demonstrated an inability to care for self and provide for basic needs without the support of a structured psychiatric setting. - EKG (WNL). PPD was refused by patient - CXR ordered 09/05 -306 hearing held and patient converted to a 304 involuntary commitment. -Referred to [facility] for long-term inpatient treatment, as patient is severely ill and unable to provide for her own basic needs as a result of her mental illness, and treatment for 27 days on our acute unit was insufficient for successful transition to the community. She was at [facility] for 4 months within the past year, and did respond to treatment there, so returned to the [facility] as recommended for long-term treatment of SPMI. -EKG and chest x-ray completed for [facility] referral. 09/06 - Continue current medication regimen - Referral to [facility] is being prepared, approval was reportedly received from the [facility] - Ongoing attempt to build rapport with psychiatric lead case manager 09/07 - 09/09 - Continue current medication regimen - Referral sent to [facility] on 09/07/2019 for recommended long- term psychiatric hospitalization based on chronic medication/treatment non- compliance and repeated demonstration of inability to care for self outside of a structured psychiatric setting. - Pt was informed of [facility] referral today during encounter 09/10 - Continue current medication regimen - [facility] referral sent on 09/07/2019 - requesting updates regarding when case is anticipated to be reviewed and ensure information was received - Pt continues to demand to leave, unable to appreciated the severity of her condition. Ongoing concern related to patient's repeated demonstration of inability to care for self outside of a structured psychiatric setting. 09/11 - Continue current medication regimen - Awaiting acceptance at [facility]. Ongoing concern related to patient's repeated demonstration of inability to care for self outside of a structured psychiatric setting. 09/12 - 09/14 - Pt due for next injection of Invega Sustenna 234mg IM on 09/16. Oral supplementation was continued from last hospitalization due to concern for ongoing instability with regard to psychotic symptoms. In preparation for first maintenance dose, will reduce oral supplementation to 3mg qAM and discontinue oral paliperidone on 09/16. Continue lithium 450mg BID unchanged. - Awaiting replay for [facility] regarding referral. Ongoing c oncern related to patient's repeated demonstration of inability to care for self outside of a structured psychiatric setting. Pt has consistently not been agreeable to diversion planning as a result of fixed delusional beliefs that she has family support, that she has a house to live in, and that she has a lot of money - none of these statements confirmed to be true. 09/15 -Continue treatment plan as previously prescribed 09/16 -now fully converted to invega sustenna. 09/17 - Continue current treatment plan 09/18 - 09/20 - Continue current treatment plan - Confirmed that information from patient's hospitalization at our facility was received by [facility], but case has not yet been reviewed. Still awaiting determination of acceptance status. 09/21 - continue current meds and tx plan. Reinstitute medically necessary private room as hx of aggression, labile mood, poor ability to keep contact precautions with COVID, hx homelessness higher risk category 09/22 - 09/23 - continue current meds and tx plan. 09/24 continue current meds and tx plan. MNPR for now as less paranoid and more visible on unit. 09/25 - Continue current treatment plan - patient remains irritable, paranoid, and delusional - Continue MNPR for paranoia and irritability 09/26 - Continue current treatment plan - Still awaiting response from [facility], 3 weeks after initially referral packet was sent - Pt did reportedly complete her Medical Assistance application. Consider repeat meeting with the county to discuss options for diversion planning; though these remain very limited - As review of patient's treatment plan has historically been very upsetting to the patient, discharge plans have not changed, and the therapeutic value of the review is limited - discussed with patient who did agree to review her treatment plan once a week unless there are changes in the interim. This was confirmed by multiple parties and can be reviewed with greater frequency at which time patient better tolerates the conversation and the therapeutic value is increased. 09/27 - 10/01 - Continue current treatment plan - Still awaiting response from [facility] - Pt is unwilling to consider alternative housing options - she maintains the delusion that she has a penthouse in [place] which has been confirmed to be untrue. 10/02 - Continue as above - medications renewed - Still awaiting response from [facility] - Pt maintains fixed delusions that are interfering significantly with patient's ability to adequately care for herself outside of a structured/ supervised setting 10/03 - Continue current medication regimen - 30-day treatment review; treatment plan reviewed with patient who did become angry when length of stay was reviewed. Again became acutely agitated during conversation with provider today - Pt demonstrated very loud yelling, acute agitation, and inability to appropriately communicate frustration. These concerns, in addition to numerous failed attempts at discharge, continue to be evidence as to why patient is not appropriate to be discharged to the community. - Pt is not appropriate to go outside based on episodes of acute agitation and continued delusions which interfere with patient's ability to ensure appropriate behavior 10/04 - 10/05 - Continue current medication regimen - Pt remains inappropriate to go outside - Plan remains for transfer to the [facility] - no response regarding acceptance 10/06 - 10/07 -continue current plan. Amended court order to be obtained Wednesday and sent to the [facility] for acceptance and put patient on their wait list. 10/08 - 10/10 - continue current plan. Discharge plan continues to be placement at [facility] - Pt continues to be inappropriate to go outside based on continued demands for discharge, delusional thought content, and concerns for elopement risk if taken outside the hospital setting 10/11 - Continue current treatment plan - anticipated discharge to [facility] - Did review in detail expectations related to ability to go outside. Expectations were provided to patient, who initially verbalized understanding and repeated them back to this provider. Unfortunately, when expectations were reviewed right before attempt to go outside, patient escalated and demanded discharge and stated she was not going to the [facility]. Based on this behavior, it was deemed patient was not appropriate to go outside today. - Received amended court order to reflect updated 304 commitment to [facility] - following up to formally place patient on the waitlist 10/12 - Continue current medication regimen - pt due for next Invega Sustenna injection on 10/14 - Received confirmation that patient was formally placed on the waitlist at [facility], no available bed date at this time - Pt updated on status of [facility] referral, also updated that we were informed there is another Mauritian-speaking patient on the unit she will be admitted to and they have two Mauritian-speaking staff/interpreters on service. 10/13 - Continue current medication regimen - maintenance injection of Invega Sustenna due 10/14 - Awaiting bed date at [facility] 10/14 - Continue current treatment plan - Pt tolerated first maintenance injection of Invega Sustenna ordered for today - will be due again on 11/11 for next maintenance injection - Awaiting bed date and transfer to [facility] - Pt continues to be too delusional and agitated to tolerate a visit outside, will continue to assess 10/15 - 10/19 - Continue current treatment plan - Awaiting bed date and transfer to [facility] 10/20--reviewed. Continue current meds and treatment plan pending [facility] bed date. 10/21--reviewed. Continue current meds and treatment plan pending [facility] bed date. 10/22--reviewed. Continue current meds and treatment plan pending [facility] bed date. Will add PPI for presumed reflux/?hiatal hernia hx. Would need to go off unit for abdominal films and currently NAD. 10/23 - Continue current treatment plan. - Awaiting bed date and transfer to [facility] 10/24 - Continue current treatment plan - Received update that patient will be accepted to [facility] with a bed date of 11/09/2019. - Pt updated about discharge timeline and denied questions 10/25 - Continue current treatment plan - Pt remains delusional - recently mentioning that she has an octopus in her stomach, placed there by a man who lives in [place] - Discharge to [facility] is anticipated for 11/09/201910/26 - Continue current treatment plan 10/27 -continue current treatment plan and continue gentle reality testing rajani regarding discharge plans - Discharge to [facility] is anticipated for 11/09/201910/28 pt stating in positive manner will be discharged to another hospital on 11/08 10/29 - 10/31 - Continue current treatment plan - Discharge to [facility] anticipated for 11/09/201911/01 - Medications renewed - restarting pantoprazole as patient found it effective for abdominal pain - Continue current treatment plan - Discharge to [facility] anticipated for 11/09/201911/02 - Continue current treatment plan - Discharge to [facility] anticipated for 11/09/2019 - COVID-19 testing ordered as instructed for 11/04 and 11/06, with results to be faxed once received. Pt updated on testing procedures and denied questions or concerns. 11/03 -Continue medications as prescribed -Patient aware of pending COVID-19 testing prior to discharge to [facility] 11/04 -COVID test #1 today for planned discharge to [facility] later this week 11/05 - Continue current medication regimen - Next COVID text due tomorrow; initial test on 11/04 with negative result - Anticipate discharge to [facility] on 11/08 11/06 - Patient is medically cleared for transfer to the [facility]. No active medical conditions currently. 11/07 - Condition unchanged. Second COVID test negative today. 11/08 - Transferred to [facility] for long-term inpatient treatment. -Continue Invega Sustenna -initiated 08/13/2019, last maintenance injection of 234 mg received 10/15/2019. -Continue lithium. Trough level on this dose 08/15/2019 was 0.7. (2) Noncompliance with medication regimen: 09/02 - Unable to clarify if pt has been taking her medications regularly in the days since discharge. She at first indicated that she was not then indicated the medications arein a bag of hers but did not indicate actually taking them. The patient also claims to not recall the names of any of her medications and reports that she does not have the conditions for which her known medications are clearly intended. Possible cognitive impairments. might be impacting medication compliance. language impairments with pt not speaking Afghan impacting compliance concerns. -The patient's underlying psychiatric condition will be actively treated. It is hoped that with treatment we will be able to improve medication compliance and also address aspects that impact compliance and improve this with appropriate interventions. CANTOR form of Invega to be continued at this time, next dose not due for another 2 weeks. Pt took meds this morning that were offered to her but given her extensive non compliance prior to, during and seeming after recent admission and lack of insight to her dx and presentation and indicating that recent hospitalization was quite helpful for her and her indicating wanting to continue her medications as was rx' at end of recent [facility] admission and were instructed to take at that discharge. I am in favor of medication over objection if pt objects to taking her medication during the course of this admission or if it is determined that pt is checking or not actually taking her medications. 10/16 - Pt has continued to tolerate Invega Sustenna maintenance injections. Last received injection on 10/15/2019, due for next injections of 234mg IM on 11/11 (3) Homeless: 09/03/19 -In the past, the patient has lived with family members. However, this is clearly not an option at the present time. The context is that the patient reportedly was in snf for approximately a year because of her making terroristic threats against the family. While it does seem clear that the family wants to help protect her, they are unable to safely provide fci. Given the patient's history of neglect of self-care, medication nonadherence, and possible cognitive deficits we are going to investigate structured residential programs as part of our discharge planning. 09/03 -patient has consistently refused assistance with housing, insisting that she has a house in [place], although has not been able to provide an address and her family states this is not true. 09/06 - Patient's grandson called unit yesterday to provide additional information, stating the patient has been homeless for quite some time and there is no valid address for the patient 09/29 pt remains delusional about having a home and is agitated if this is approached or challenged in anyway 09/30 did not discuss further today as this is a point of delusion and been shown to be refractory to challenging in anyway (4) Involuntary commitment: 09/03 -patient on a 304 IOC, readmitted on a 302. We will file for a 306 conversion hearing. 09/04 - 306 hearing scheduled for 09/05; anticipate referral to [facility]. 09/05 -306 conversion granted, now here on a 304 involuntary commitment. 09/07 - Referral packet sent to [facility] on 09/06 Mental Health & Subst Abuse [facility] Psychiatrist Name of Psychiatrist: . Psychiatrist's Phone Number: . Date of Appointment with Psychiatrist: 09/14/19 Time of Appointment with Psychiatrist: . Psychiatric Appointment Comment: . Therapist Name of Therapist: . Submarine Element Coordinator Name of Submarine Element Coordinator: . Phone Number for Submarine Element Coordinator: . Post Discharge Appointments Primary Care Physician Name Of Family Doctor: . Primary Care Phone Number: . Provider Appointment Comment: . Home Health Services Home Health Services:: None Smoking Cessation Counseling Tobacco Cessation Medication Prescribed at Discharge: Not Applicable/Non-Smoker Contact Information Discharge Contact Information Comment: [facility] Discharge Plan Discharge Items Patient Disposition: Transfer Behavioral Health Fac Reason For Visit: SCHIZOAFFECTIVE DISORDER BIPOLAR TYPE Discharge Diagnosis: Schizoaffective disorder bipolar type Treatment noncompliance Activity: Per Instructions section Non-emergency contact: Professional Builder Call non-emergency contact if: you have any medication questions and your symptoms worsen Follow-up/Referrals: PCP,NO [Primary Care Provider] - Diet: Regular Addtl Attending Provider Instructions: Transfer to [facility] for long-term inpatient treatment on a 304 involuntary commitment. Pending Studies at Discharge: No Stand-Alone Forms: My [facility], Suicide Prevention Resources Medications and DC Order Prescriptions: Continued Invega Sustenna 234 mg/1.5 mL syringe 234 mg IM Q4WK Qty: 1.5 RF: 0 simvastatin [Zocor] 10 mg Tablet 10 mg PO HS RF: 0 levothyroxine [Synthroid] 75 mcg Tablet 75 mcg PO DAILY RF: 0 lithium carbonate 450 mg tablet extended release 450 mg PO BID Qty: 60 RF: 0 Discontinued paliperidone 6 mg tablet extended release 24hr 6 mg PO QAM Qty: 30 RF: 0 Discharge Orders: Discharge Order (Routine); Ordered 11/09/19 Ordered By: Margaret Amador Admission Data Admit Date/Time: 09/03/19 05:42 Attending Provider: Margaret Amador Admit Provider: Shayan Madison I. Primary Care Provider: PCP,NO Other Interventions: Discharge Summary Assessment (RN) Last Done: 11/09/19 09:38 PSY Interdisciplinary Discharge Planning Last Done: 11/09/19 09:38 Coding Level of Care Code 98991 D/C day mgmt > 30 min Diagnoses Schizoaffective disorder, bipolar type F25.0 Noncompliance with medication regimen Z91.14 Homeless Z59.0 Involuntary commitment Z04.6
[2019-11-12] MEDS ORDERED: PALIPERIDONE PALMITATE 234 MG/1.5 ML SYR IM SCH (11:00)
== END 2019-11-09 10:20 | DRG 885 ==
LOC: ED 23:52 → 3S 09-03 05:42